=== PATIENT | male | born 1950 | race African-American/Black ===

== ENCOUNTER 2023-07-10 03:36 | Inpatient (IN) | payer MEDICAID, SELFPAY ==
[2023-07-10] VITALS (11 sets, daily range): BP systolic 103–170; BP diastolic 49–84; PULSE 63–94; RESP 14–22; TEMP 33.4–36.6; O2SAT 90–100; BMI 32.2
--- NOTE | 2023-07-10 | EEG_ITS ---
FINDINGS: Background activity consists of a very low voltage diffuse 2 to 3 hertz delta. Photic stimulation is without activation. Hyperventilation was omitted. IMPRESSION: This is a markedly abnormal EEG due to severe diffuse background slowing and low amplitude consistent with a severe diffuse encephalopathic process. No epileptiform discharges are seen. MD RADHA Amor/KRYSTAL / [id number]
--- NOTE | 2023-07-10 03:39 | ED.NEUROSD ---
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 , diabetes type 2 insulin dependent, chronic diastolic heart failure, dysphagia, dementia, hypertension, recurrent UTI, CKD stage IIIB, BPH, schizophrenia hypothermia secondary to autonomic dysfunction ambulatory and speaks comes here as at 330 Am when nurse was going for patient check noticed that patient is not speaking and has right-sided shaking with weakness which is kind of unusual for the patient, no facial asymmetry no vomiting patient does have a CKD with BUN of 53 and creatinine 2.83 in labs done on 05/25/2023 on further inquiry with nursing supervisor quality control patient was found having some seizure-like activity with jerking movements of both extremities with foaming from the mouth which lasted for 15 minutes prior to arrival Related Data Allergies Allergy/AdvReac Type Severity Reaction Status Date / Time No Known Allergies Allergy Verified 07/10/23 03:39 Review of Systems Review of Systems: Yes Unobtainable due to mental status PMFSH Past Medical History Medical History (Updated 07/10/23 @ 06:48 by Woodrow Montgomery MD) Hypothermia Schizophrenia BPH (benign prostatic hyperplasia) Stage 3b chronic kidney disease (CKD) Left hemiparesis Right pontine CVA Hypertension Recurrent UTI Dysphagia Dementia Chronic diastolic heart failure Paroxysmal A-fib Diabetes mellitus type 2 in obese Social History Social History Unable to assess alcohol history related to: Unknown Smoked in Last 30 Days: No Use of substances other than those prescribed or required for medical reasons: Unable to respond Advance Directives: No Advance Directives Information Provided: No Physical Exam Vital Signs: Vital Signs: Last Vital Signs Temp 97.0 F 07/10/23 06:06 Pulse 82 07/10/23 06:06 Resp 15 07/10/23 06:06 BP 156/70 H 07/10/23 06:06 Pulse Ox 92 07/10/23 06:06 O2 Del Method Room Air 07/10/23 06:06 BMI result Body Mass Index 32.2 Appearance: Alert. And awake No acute distress. Nonverbal Eyes: PERRLA, No Nystagmus ENT: Pharynx normal. Oral Mucosa moist Neck: Normal inspection. Neck supple. CVS: Normal heart rate and rhythm. Pulses normal. Respiratory: No respiratory distress. Equal air entry bilateral, no wheezing/rales/rhonchi Abdomen: Soft and nontender. Bowel sounds are present, no mass palpable, no CVA tenderness Skin: Skin warm and dry. Normal skin color. Normal skin turgor. Extremities: No lower extremity edema. No calf tenderness slight shaking of the right hand Neuro: Alert and awake with slight weakness to the right side aphasia +.No cerebellar signs , cranial nerves II-XII intact slight shaking of the right hand Medications Administered Discontinued Medications Generic Name Dose Route Start Last Admin Trade Name Tremaineq PRN Reason Stop Dose Admin Sodium Chloride 1,000 mls @ 999 mls/hr 07/10/23 05:31 07/10/23 06:11 Ns IV 07/10/23 06:31 999 mls/hr .Q1H1M ONE Administration Levetiracetam 1,000 mg in 100 mls @ 400 mls/hr 07/10/23 06:05 07/10/23 06:28 Keppra IV 07/10/23 06:19 Infused ONCE ONE Infusion Iohexol 70 ml 07/10/23 03:58 07/10/23 03:59 Iohexol 350 Mg/Ml 100 Ml Infus..Btl IV 07/10/23 03:59 70 ml ONCE ONE Administration Medical Decision Making Medical Decision Making MDM Narrative: Patient with last well-known time was when he went to bed last night at 03:30 during checkup nurse noticed right-sided weakness and patient not speaking CT head negative for acute patient noticed to be shaking on the right side possible seizure patient excluded from tPA for unknown time of onset and been on Eliquis unable to NIHSS scale as patient is nonverbal and noncompliance 05:[address] head negative for acute patient able to communicate by responding to his name able to move his right-upper extremity but slightly weaker than the left will call [facility] assistant to find the details 06:00 patient had a witnessed generalized tonic-clonic seizure with tongue bite lasted for about 4 minutes with frothing from the mouth and postictal obtundation. Will start patient on Keppra admit patient for further evaluation Differential Diagnosis Differential Diagnoses: The differential diagnosis associated with the presentation includes Seizure disorder/status epilepticus/CVA/SAH/metabolic encephalopathy Admission/Observation Consideration of admission/observation: Escalation of care including admission/observation considered Consult Healthcare Provider Management of the patient was discussed with: Hospitalist Lab Data MDM Lab Attestation statement: I reviewed the patient's lab results. 07/10/23 04:38 07/10/23 04:38 Labs: Lab Results 07/10/23 07/10/23 Range/Units 03:42 04:38 WBC 9.8 (4.8-10.8) X10*3/uL RBC 3.49 L (4.60-5.80) X10*6/uL Hgb 9.9 L (14.0-18.0) g/dl Hct 30.6 L (42.0-52.0) % MCV 87.7 (80.0-98.0) fL MCH 28.4 (27.0-33.0) pg MCHC 32.4 (31.0-36.0) g/dl RDW 17.1 H (11.0-16.0) % Plt Count 112 L (160-400) X10*3/uL MPV 11.9 (9.4-12.4) fL Immature Gran % (Auto) 1.5 H (0.0-0.4) % Neut % (Auto) 82.4 H (45-73) % Lymph % (Auto) 10.5 L (20-40) % [place] % (Auto) 4.9 (2-11) % Eos % (Auto) 0.5 (0-4) % Baso % (Auto) 0.2 (0-2) % Lymph # (Auto) 1.0 L (1.2-4.9) X10*3/uL [place] # (Auto) 0.5 (0.1-1.2) X10*3/uL Eos # (Auto) 0.1 (0.0-0.4) X10*3/uL Baso # (Auto) 0.0 (0.0-0.2) X10*3/uL Abs Immat Gran (auto) 0.15 H (0.00-0.03) X10*3/uL Absolute Neuts (auto) 8.1 (2.0-8.3) x10*3/uL Absolute Nucleated RBC 0.050 H (0.0-0.012) X10*3/uL Nucleated RBC % (auto) 0.5 H (0.0-0.2) /100WBC PT 11.2 (11.1-13.3) SEC Whole Blood PT 12.2 (11.1-13.5) sec INR 0.9 (0.9-1.1) Whole Blood INR 1.0 (0.9-1.1) APTT 53.3 H (26.0-36.4) SEC Sodium 140 (135-145) mmol/L Potassium 4.9 (3.3-5.1) mmol/L Chloride 104 (96-108) mmol/L Carbon Dioxide 21 L (22-29) mmol/L Anion Gap 20 (12-20) BUN 65 H (9-16) mg/dL Creatinine 3.12 H (0.5-1.4) mg/dL Estim Creat Clear Calc 22.6 Estimated GFR 20 POC Glucose 202 H (60-115) mg/dL Random Glucose 221 H (60-115) mg/dL Calcium 10.1 (8.4-10.2) mg/dL Magnesium 2.2 (1.6-2.6) mg/dL Total Creatine Kinase 109 (38-174) U/L Troponin I High Sens 13.4 (<3.5-35.0) ng/L Independent Interpretation I performed an independent interpretation of an: EKG Interpretation: Normal sinus rhythm heart rate 90 beats per minute normal interval normal axis no acute ST-T change and no acute ischemia Radiology Impression Discussion of test interpretation with radiology: I have reviewed the radiologist's reading. Radiologist Impression: [address] [address] [address] Scan Report Signed Patient: Aristeo Garrett MR#: [id number] : 1950 Acct:[id number] Age/Sex: 72 / M ADM Date: 07/10/23 Loc: .ED Attending Dr: Ordering Physician: Woodrow Montgomery MD Date of Service: 07/10/23 Procedure(s): CT angio head neck stroke Accession Number(s): [id number] cc: Mark Arredondo MD; Woodrow Montgomery MD~ EXAMINATION: CTA NECK WITH CONTRAST (STROKE) CTA BRAIN WITH CONTRAST (STROKE) CLINICAL INFORMATION: Suspect acute stroke. Assess for major vessel occlusion. Please call report. COMPARISON: None available. TECHNIQUE: CTA of the head and neck was performed in the axial plane from the mediastinum to the skull vertex using 70 mL Omnipaque 350 intravenous contrast. Additional reformatted multiplanar images including maximum intensity projection MIP images are generated on the CT workstation. This CT examination was performed using dose optimization techniques as appropriate, variously including the following: *Automated exposure control *Adjustment of mA and/or kV according to patient size (this includes techniques or standardized protocols for targeted exams where dose is matched to indication/reason for exam; i.e. extremities or head) *Use of iterative reconstruction technique DLP: 897 mGy-cm FINDINGS: The degree of stenosis determined by criteria similar to NASCET. Brain: There is cerebral volume loss with prominence of the lateral, and third ventricles. The cortical sulci are widened appropriately. The fourth ventricle and basal cisterns are normally outlined. There is mild to moderate bilateral periventricular and central white matter diminished attenuation. Old right basal ganglia and pontine lacunar infarcts are again seen. There is no acute territorial defect, hemorrhage or midline shift. The extra-axial spaces are unremarkable. Calvarium: Intact. Maxilla facial sinuses and mastoids: Clear as visualized. Chest CTA: The aortic arch is within normal limits. Neck CTA: There is atherosclerotic plaque at the carotid bifurcation without hemodynamically significant stenosis. The common carotid artery is patent. The vertebral arteries are codominant. There is mild plaque throughout the vertebral arteries without significant narrowing. The external carotid arteries also patent. Brain CTA: There is atherosclerotic plaque of the intracranial internal carotid artery with moderate luminal narrowing. The middle cerebral and anterior cerebral arteries show no significant proximal stenosis. The distal vertebral artery as well as basilar artery and branches are patent. The posterior vertebral arteries are also patent. There is no evidence for aneurysm. CT/CT angio head neck stroke IMPRESSION: Atherosclerotic plaque of the aortic bifurcation as well as intracranial internal carotid arteries with mild to moderate luminal narrowing in the intracranial internal carotid arteries. The anterior middle and posterior cerebral arteries are patent. No evidence for aneurysm. CT/CT head for stroke IMPRESSION: Cerebral volume loss and [id number] bilateral periventricular and central white matter image attenuation which is nonspecific but likely represent microvascular disease. No acute intracranial abnormality. This critical result was discussed with Dr. Cummings at 3:53 AM hours on 05/10/2023.. It was ascertained that the content and urgency of the report was understood at the time of direct communication. External Record Review External record reviewed: Inpatient record Patient discharged from [facility] 06/29 BUN 57 creatinine 2.6 on 06/28/2023 NIH Stroke Scale Best Gaze: Normal Critical Care Time Critical Care Time Critical Care Time: Yes Total Critical Care Time: 60 Attestation: The patient was critically ill with a high probability of imminent or life threatening deterioration. I spent greater than 70 minutes of discontinuous time evaluating the patient,delivering critical care at the bedside, discussing and evaluating pertinent data with consultants. Critical care time does not include time spent performing separately billable procedures or teaching. Total time spent performing critical care was 60 minutes. Discharge Plan Discharge Clinical Impression: New onset seizure, Acute alteration in mental status, CKD (chronic kidney disease) Patient Disposition: Admitted As Inpatient
--- NOTE | 2023-07-10 04:39 | PC.NURSE ---
[facility] has a [place] cath on for urine
[2023-07-10 04:56] LABS: Anion Gap 20 (12-20); Blood Urea Nitrogen 65 mg/dL (9-16); Calcium 10.1 mg/dL (8.4-10.2); Carbon Dioxide 21 mmol/L (22-29); Chloride 104 mmol/L (96-108); Creatinine Clr Calc Pharmacy 22.6; Estimated Glomerular Filt Rate 20; Glucose Random 221 mg/dL (60-115); Magnesium 2.2 mg/dL (1.6-2.6); Potassium 4.9 mmol/L (3.3-5.1); Sodium 140 mmol/L (135-145)
--- NOTE | 2023-07-10 06:11 | PC.NURSE ---
upon arriving to pt room, pt was snoring loudly, drooling and unresponsive to staff, Dr. beckwith to assess pt, HOB elevated, medicated with keppra and NS
--- NOTE | 2023-07-10 06:13 | P.HPHOSP_ITS ---
History of Present Illness Date of Service: 07/10/23 Chief Complaint: seizures 72-year-old male with PMH of?diabetes mellitus type 2,?insulin- dependent,?paroxysmal atrial fibrillation?(on Eliquis),?chronic diastolic congestive heart failure,?dysphagia,?dementia, recurrent UTIs, hypertension, history of right pontine?CVA?in 03/2023?with left hemiparesis,?CKD stage?IIIb,?BPH schizophrenia?with lack of decision-making capacity,?(court- appointed guardian),?is presenting to the ED from?memory center?at [facility]
--- NOTE | 2023-07-10 06:13 | PM.IMHP ---
History of Present Illness Date of Service: 07/10/23 Chief Complaint: seizures 72-year-old male with PMH of?diabetes mellitus type 2,?insulin-dependent,?paroxysmal atrial fibrillation?(on Eliquis),?chronic diastolic congestive heart failure,?dysphagia,?dementia, recurrent UTIs, hypertension, history of right pontine?CVA?in 03/2023?with left hemiparesis,?CKD stage?IIIb,?BPH schizophrenia?with lack of decision-making capacity,?(court-appointed guardian),?is presenting to the ED from?memory center?at [facility] in [place] with witnessed tonic clonic seizure and upon arrival to the ED he appear to be in post-ictal state, but then had another episode of tonic clonic seiure in ED with foaming from the mouth. He is given IV, no prior history of seizure. Glucose was greater 200. He was hospitalized at [facility] last month for hypothermia and Hypoglycemia Review of Systems Review of Systems: Yes Unobtainable due to mental condition [facility] Medical History (Updated 07/10/23 @ 14:13 by Tano Bernardo MD) Type 2 diabetes mellitus Hypertensive cardiovascular-renal disease Hypothermia Schizophrenia BPH (benign prostatic hyperplasia) Stage 3b chronic kidney disease (CKD) Left hemiparesis Right pontine CVA Hypertension Recurrent UTI Dysphagia Dementia Chronic diastolic heart failure Paroxysmal A-fib Diabetes mellitus type 2 in obese Social History Unable to assess alcohol history related to: Unknown Patient Tobacco Use Status: Tobacco use Unknown Meds Allergies Allergy/AdvReac Type Severity Reaction Status Date / Time No Known Allergies Allergy Verified 07/10/23 03:39 Active Medications: Current Medications Sodium Chloride (Ns) 1,000 mls @ 999 mls/hr IV .Q1H1M ONE Stop: 07/10/23 06:31 Last Admin: 07/10/23 06:11 Dose: 999 mls/hr Levetiracetam (Keppra) 1,000 mg in 100 mls @ 400 mls/hr IV ONCE ONE Stop: 07/10/23 06:19 Last Admin: 07/10/23 06:10 Dose: 400 mls/hr Home Medications Medication Instructions Recorded Confirmed Last Taken Type apixaban 5 mg tablet (Eliquis) 5 mg PO BID 07/10/23 07/10/23 Unknown History atorvastatin 20 mg tablet 20 mg PO DAILY 07/10/23 07/10/23 Unknown History benztropine 1 mg tablet 1 mg PO BID 07/10/23 07/10/23 Unknown History cholecalciferol (vitamin D3) 50 50 mcg PO DAILY 07/10/23 07/10/23 Unknown History mcg (2,000 unit) tablet docusate sodium 100 mg capsule 200 mg PO DAILY 07/10/23 07/10/23 Unknown History finasteride 5 mg tablet 5 mg PO DAILY 07/10/23 07/10/23 Unknown History folic acid 1 mg tablet 1 mg PO DAILY 07/10/23 07/10/23 Unknown History haloperidol 5 mg tablet 5 mg PO DAILY 07/10/23 07/10/23 Unknown History haloperidol decanoate 50 mg/mL 25 mg IM Q4W 07/10/23 07/10/23 Unknown History intramuscular solution insulin NPH isoph U-100 human 100 10 unit subcut BID 07/10/23 07/10/23 Unknown History unit/mL subcutaneous suspension (Humulin N NPH U-100 Insulin (isophane susp)) insulin regular human 100 unit/mL 1 sliding scale dose subcut 07/10/23 07/10/23 Unknown History injection solution (Humulin R USEASDIRECTD Regular U-100 Insulin) isosorbide mononitrate 30 mg 30 mg PO DAILY 07/10/23 07/10/23 Unknown History tablet,extended release 24 hr multivitamin 1 tab PO DAILY 07/10/23 07/10/23 Unknown History olanzapine 5 mg tablet 5 mg PO DAILY 07/10/23 07/10/23 Unknown History risperidone 2 mg tablet 2 mg PO DAILY 07/10/23 07/10/23 Unknown History risperidone 3 mg tablet 3 mg PO BEDTIME 07/10/23 07/10/23 Unknown History sucralfate 1 gram tablet (Carafate) 1 g PO TID 07/10/23 07/10/23 Unknown History tamsulosin 0.4 mg capsule 0.8 mg PO BEDTIME 07/10/23 07/10/23 Unknown History Physical Exam Vital Signs and Narrative: Vital Signs: Last Vital Signs Temp 97.0 F 07/10/23 06:06 Pulse 82 07/10/23 06:06 Resp 15 07/10/23 06:06 BP 156/70 H 07/10/23 06:06 Pulse Ox 92 07/10/23 06:06 O2 Del Method Room Air 07/10/23 06:06 BMI result Body Mass Index 32.2 Const: Other: General:?No alert, not responding eyes closed, no distress Mental Status:?No able to assess, not able to follow commend Head:?Normocephalic. Eyes:?Pupils are equal, round and reactive to light. Extraocular muscles intact. Ear, Nose and Throat:?Oropharynx clear, mucous membranes moist. Ears and nose without masses, lesions or deformities. Neck:?Supple, Respiratory:?Clear to auscultation and percussion. No wheezing, rales or rhonchi. Cardiovascular:?Heart sounds iregular. No thrills. Regular rate and rhythm, no murmurs, rubs or gallops. Gastrointestinal:?Abdomen soft, non-tender, non-distended. Normal bowel sounds. No pulsatile mass. No hepatosplenomegaly. + Obese Genitourinary:?No costovertebral angle tenderness. Neurologic:?limitted exam, no focal deficit appreciated Skin:?No rashes or lesions. . Musculoskeletal:?No cyanosis or clubbing. No gross deformities. Normal range of motion. Results Labs 07/10/23 04:38 07/10/23 04:38 Labs: Laboratory Results - last 24 hr 07/10/23 07/10/23 03:42 04:38 MCV 87.7 MCH 28.4 MCHC 32.4 RDW 17.1 H Plt Count 112 L MPV 11.9 Immature Gran % (Auto) 1.5 H Neut % (Auto) 82.4 H Lymph % (Auto) 10.5 L [place] % (Auto) 4.9 Eos % (Auto) 0.5 Baso % (Auto) 0.2 Lymph # (Auto) 1.0 L [place] # (Auto) 0.5 Eos # (Auto) 0.1 Baso # (Auto) 0.0 Abs Immat Gran (auto) 0.15 H Absolute Neuts (auto) 8.1 Absolute Nucleated RBC 0.050 H Nucleated RBC % (auto) 0.5 H PT 11.2 Whole Blood PT 12.2 INR 0.9 Whole Blood INR 1.0 APTT 53.3 H Anion Gap 20 Estim Creat Clear Calc 22.6 Estimated GFR 20 POC Glucose 202 H Random Glucose 221 H Calcium 10.1 Magnesium 2.2 Total Creatine Kinase 109 Imaging Radiologist's Impressions: Impressions Head CT 07/10/23 03:50 IMPRESSION: Cerebral volume loss and [id number] bilateral periventricular and central white matter image attenuation which is nonspecific but likely represent microvascular disease. No acute intracranial abnormality. This critical result was discussed with Dr. Cummings at 3:53 AM hours on 05/10/2023.. It was ascertained that the content and urgency of the report was understood at the time of direct communication. Head/Neck CTA 07/10/23 04:11 IMPRESSION: Atherosclerotic plaque of the aortic bifurcation as well as intracranial internal carotid arteries with mild to moderate luminal narrowing in the intracranial internal carotid arteries. The anterior middle and posterior cerebral arteries are patent. No evidence for aneurysm. This critical test result is communicated to: Assessment and Plan (1) New onset seizure: Status: Acute Plan 72-year-old male with PMH of diabetes mellitus type 2, insulin-dependent, paroxysmal atrial fibrillation (on Eliquis), chronic diastolic congestive heart failure, dysphagia, dementia, recurrent UTIs, hypertension, history of right pontine CVA in 03/2023 with left hemiparesis, CKD stage IIIb, BPH schizophrenia with lack of decision-making capacity, (court-appointed guardian), here with new onset seizure. New onset seizure, CT no acute finding. Continue IV Keppra, Neuro consult, seizure precautions, NPO until awake, EEG, Ativan PRN and ICU consult with status epilepticus Type 2 diabetes mellitus: Hold meds, POC, ISS Stage III chronic kidney disease (N18.30): BUN/creatinine within baseline, monitor urine output, avoid nephrotoxic drugs, renally adjust medications ?? Hypertension - resume ?Amlodipine? when able take PO ?? Paroxysmal atrial fibrillation, rate is controlled, resume eliquis when able to eat ?? BPH (benign prostatic hyperplasia) with urinary retention:? -?Flomax, Finasteride when able to eat - Bladder scan, straight?cath as needed Dementia:?? Schizophrenia Impaired decision making (Z78.9): Patient has court appointed guardian (patient is deemed incapable of making medical decisions) -On ?Risperidone, olanzapine, benztropine? to be resume when able to eat DVT prophylaxis--eliquis admit for at least 2 midnights for new onset seizure management Med rec not yet done ?? ? Time Spent With Patient Time: Total time managing care of this patient today ____ minutes. Quality Stroke Does the patient have a stroke diagnosis?: No VTE Prior VTE?: No VTE Risk Level:: Medical - moderate - high VTE Device Contraindication: Treatment Not Indicated VTE Drug Contraindication: N/A - Med Ordered
--- NOTE | 2023-07-10 06:46 | PC.NURSE ---
pt assessed, looking around the room, turns his head when he hears his name, still non-verbal
--- NOTE | 2023-07-10 08:01 | PHA.MEDREC ---
Pharmacy Consult ? Medication Reconciliation Pharmacy has completed the medication reconciliation. List from [facility] / [facility]
--- NOTE | 2023-07-10 08:18 | PC.NURSE ---
spoke with daughter about pt and MRI questions, she was unsure of many of the answers and referred me to her brother. called was placed but he did not answer, message was left at 0815 requesting a call back
--- NOTE | 2023-07-10 09:57 | PC.NURSE ---
at approx 0950 [facility] deepika witnessed what looked like seizure activity. called for help. Dr. Barber came to bedside placed pt on his side, VO 1mg ativan IVP, pt placed on a NRB at 15L due to desat to 80s. pt seizure lasted approx 2 min
--- NOTE | 2023-07-10 11:12 | PC.NURSE ---
pct was unable to accurately measure an oral temp, proceeded with rectal temp. pt rectal temp 92.1 - informed . placed pt on sav hugger with rectal temp sensing prob in place. pt remaines obtunded
--- NOTE | 2023-07-10 12:05 | PM.NEUROCN ---
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 No prior history of seizure. Glucose was greater 200. Given Keppra 500mg IV only Review of Systems Review of Systems: Patient had another seizure this episode-received Ativan IV in postictal afterwards. Of note :I have seen him earlier he was barely opening eyes Currently postictal-has hypothermia. Also patient is having some gargling noises, also got suctioned in the ED. Yes Unobtainable due to mental condition and Unobtainable due to mental status PMFSH Past Medical History Medical History (Updated 07/10/23 @ 06:48 by Woodrow Montgomery MD) Hypothermia Schizophrenia BPH (benign prostatic hyperplasia) Stage 3b chronic kidney disease (CKD) Left hemiparesis Right pontine CVA Hypertension Recurrent UTI Dysphagia Dementia Chronic diastolic heart failure Paroxysmal A-fib Diabetes mellitus type 2 in obese Social History Social History Unable to assess alcohol history related to: Unknown Patient Tobacco Use Status: Tobacco use Unknown Smoked in Last 30 Days: No Use of substances other than those prescribed or required for medical reasons: Unable to respond Advance Directives: No Advance Directives Information Provided: No Nutrition Risks: On aspiration precautions Meds Allergies Allergy/AdvReac Type Severity Reaction Status Date / Time No Known Allergies Allergy Verified 07/10/23 03:39 Active Medications: Current Medications Acetaminophen (Acetaminophen Supp 650 Mg Supp.Rect) 650 mg IA Q6H PRN PRN Reason: Pain, Mild (Pain Scale 1-3) Atorvastatin Calcium (Atorvastatin Calcium 20 Mg Tablet) 20 mg PO DAILY [facility] Last Admin: 07/10/23 10:03 Dose: Not Given Benztropine Mesylate (Benztropine Mesylate 1 Mg Tablet) 1 mg PO BID [facility] Last Admin: 07/10/23 10:03 Dose: Not Given Docusate Sodium (Docusate Sodium 100 Mg Capsule) 200 mg PO DAILY [facility] Last Admin: 07/10/23 10:03 Dose: Not Given Enoxaparin Sodium (Enoxaparin Sodium 30 Mg/0.3 Ml Syringe) 30 mg SUBCUT Q24H [facility] Finasteride (Finasteride 5 Mg Tablet) 5 mg PO DAILY [facility] Last Admin: 07/10/23 10:04 Dose: Not Given Folic Acid (Folic Acid 1 Mg Tablet) 1 mg PO DAILY [facility] Last Admin: 07/10/23 10:04 Dose: Not Given Haloperidol (Haloperidol 5 Mg Tablet) 5 mg PO DAILY [facility] Last Admin: 07/10/23 10:04 Dose: Not Given Haloperidol Decanoate (Haloperidol Decanoate 50 Mg/Ml Ampul) 25 mg IM Q28D [facility] Lactated Ringer's (Lr) 1,000 mls @ 100 mls/hr IVCONT .Q10H [facility] Ampicillin Sodium/Sulbactam (Sodium 3 gm/ Sodium Chloride) 100 mls @ 200 mls/hr IV Q6H [facility] Isosorbide Mononitrate (Isosorbide Mononitrate 30 Mg Tab.Er.24h) 30 mg PO DAILY [facility]; Protocol Last Admin: 07/10/23 10:04 Dose: Not Given Levetiracetam (Levetiracetam 500 Mg/5 Ml Vial) 500 mg IV Q12H [facility] Last Admin: 07/10/23 11:59 Dose: 500 mg Multivitamins/Vitamin C (Multivitamin Tablet) 1 tab PO DAILY [facility] Last Admin: 07/10/23 10:04 Dose: Not Given Olanzapine (Olanzapine 5 Mg Tablet) 5 mg PO DAILY [facility] Last Admin: 07/10/23 10:05 Dose: Not Given Ondansetron HCl (Ondansetron Hcl 4 Mg/2 Ml Vial) 4 mg IVPUSH Q8H PRN PRN Reason: Nausea and Vomiting Risperidone (Risperidone 2 Mg Tablet) 2 mg PO DAILY [facility] Last Admin: 07/10/23 10:05 Dose: Not Given Risperidone (Risperidone 3 Mg Tablet) 3 mg PO BEDTIME [facility] Sodium Chloride (0.9 % Sodium Chloride Flush 3 Ml Syringe) 3 ml IVFLUSH QSHIFT [facility] Last Admin: 07/10/23 08:02 Dose: 3 ml Sucralfate (Sucralfate 1 Gm Tablet) 1 gm PO TID [facility] Last Admin: 07/10/23 10:05 Dose: Not Given Tamsulosin HCl (Tamsulosin Hcl 0.4 Mg Capsule) 0.8 mg PO BEDTIME [facility] Vitamin D (Cholecalciferol (Vitamin D3) 25 Mcg Tablet) 50 mcg PO DAILY [facility] Last Admin: 07/10/23 10:03 Dose: Not Given Home Medications Medication Instructions Recorded Confirmed Last Taken Type apixaban 5 mg tablet (Eliquis) 5 mg PO BID 07/10/23 07/10/23 Unknown History atorvastatin 20 mg tablet 20 mg PO DAILY 07/10/23 07/10/23 Unknown History benztropine 1 mg tablet 1 mg PO BID 07/10/23 07/10/23 Unknown History cholecalciferol (vitamin D3) 50 50 mcg PO DAILY 07/10/23 07/10/23 Unknown History mcg (2,000 unit) tablet docusate sodium 100 mg capsule 200 mg PO DAILY 07/10/23 07/10/23 Unknown History finasteride 5 mg tablet 5 mg PO DAILY 07/10/23 07/10/23 Unknown History folic acid 1 mg tablet 1 mg PO DAILY 07/10/23 07/10/23 Unknown History haloperidol 5 mg tablet 5 mg PO DAILY 07/10/23 07/10/23 Unknown History haloperidol decanoate 50 mg/mL 25 mg IM Q4W 07/10/23 07/10/23 Unknown History intramuscular solution insulin NPH isoph U-100 human 100 10 unit subcut BID 07/10/23 07/10/23 Unknown History unit/mL subcutaneous suspension (Humulin N NPH U-100 Insulin (isophane susp)) insulin regular human 100 unit/mL 1 sliding scale dose subcut 07/10/23 07/10/23 Unknown History injection solution (Humulin R USEASDIRECTD Regular U-100 Insulin) isosorbide mononitrate 30 mg 30 mg PO DAILY 07/10/23 07/10/23 Unknown History tablet,extended release 24 hr multivitamin 1 tab PO DAILY 07/10/23 07/10/23 Unknown History olanzapine 5 mg tablet 5 mg PO DAILY 07/10/23 07/10/23 Unknown History risperidone 2 mg tablet 2 mg PO DAILY 07/10/23 07/10/23 Unknown History risperidone 3 mg tablet 3 mg PO BEDTIME 07/10/23 07/10/23 Unknown History sucralfate 1 gram tablet (Carafate) 1 g PO TID 07/10/23 07/10/23 Unknown History tamsulosin 0.4 mg capsule 0.8 mg PO BEDTIME 07/10/23 07/10/23 Unknown History Physical Exam Vital Signs: Vital Signs: Last Vital Signs Temp 92.1 F L 07/10/23 11:11 Pulse 87 07/10/23 11:11 Resp 15 07/10/23 11:11 BP 167/84 H 07/10/23 11:11 Pulse Ox 98 07/10/23 11:11 O2 Del Method Oxymask 07/10/23 11:11 O2 Flow Rate 4 07/10/23 11:11 BMI result Body Mass Index 32.2 Const: Other: General:?No alert, not responding eyes closed, no distress Mental Status:?No able to assess, not able to follow commend Head:?Normocephalic. Eyes:?Pupils are equal, round and reactive to light. Extraocular muscles intact. Ear, Nose and Throat:?Oropharynx clear, mucous membranes moist. Ears and nose without masses, lesions or deformities. Neck:?Supple, Respiratory:?Clear to auscultation and percussion. No wheezing, rales or rhonchi. Cardiovascular:?Heart sounds iregular. No thrills. Regular rate and rhythm, no murmurs, rubs or gallops. Gastrointestinal:?Abdomen soft, non-tender, non-distended. Normal bowel sounds. No pulsatile mass. No hepatosplenomegaly. + Obese Genitourinary:?No costovertebral angle tenderness. Neurologic:?limitted exam, no focal deficit appreciated Skin:?No rashes or lesions. . Musculoskeletal:?No cyanosis or clubbing. No gross deformities. Normal range of motion. Neuro: Other: Unresponsive and post ictal. Does not follow commands. Withdraws to deep pain only. Pupils 2mm reactive. Feeble corneal reflexes. Minimal dolls eye movements Results Labs 07/10/23 04:38 07/10/23 04:38 Labs: Short CBC 07/10/23 Range/Units 04:38 WBC 9.8 (4.8-10.8) X10*3/uL Hgb 9.9 L (14.0-18.0) g/dl Hct 30.6 L (42.0-52.0) % Plt Count 112 L (160-400) X10*3/uL BMP 07/10/23 04:38 Sodium 140 Potassium 4.9 Chloride 104 Carbon Dioxide 21 L BUN 65 H Creatinine 3.12 H Calcium 10.1 Cardiac Enzymes 07/10/23 Range/Units 04:38 Total Creatine Kinase 109 (38-174) U/L Urine 07/10/23 Range/Units 08:09 Urine Color Yellow Urine Appearance Clear Urine pH 6.0 (5.0-9.0) Ur Specific [place] 1.025 (1.005-1.025) Urine Protein 300 (3+) H (Neg-Trace) mg/dL Urine Glucose (UA) 100 H (Negative) mg/dL Assessment and Plan (1) New onset seizure: Status: Acute 3 generalized seizures on back ground of dementia. CT with no acute changes. Recom. Keppra 1gm bid. Ativan PRN for Sz. F/U CT brain to r/o infract in 24 hrs. Plan 72-year-old male with PMH of diabetes mellitus type 2, insulin-dependent, paroxysmal atrial fibrillation (on Eliquis), chronic diastolic congestive heart failure, dysphagia, dementia, recurrent UTIs, hypertension, history of right pontine CVA in 03/2023 with left hemiparesis, CKD stage IIIb, BPH schizophrenia with lack of decision-making capacity, (court-appointed guardian), here with new onset seizure. New onset seizure, CT no acute finding. Continue IV Keppra, Neuro consult, seizure precautions, NPO until awake, EEG Type 2 diabetes mellitus: Hold meds, POC, ISS Stage III chronic kidney disease (N18.30): BUN/creatinine within baseline, monitor urine output, avoid nephrotoxic drugs, renally adjust medications ?? Hypertension - resume ?Amlodipine? when able take PO ?? Paroxysmal atrial fibrillation, rate is controlled, resume eliquis when able to eat ?? BPH (benign prostatic hyperplasia) with urinary retention:? -?Flomax, Finasteride when able to eat - Bladder scan, straight?cath as needed Dementia:?? Schizophrenia Impaired decision making (Z78.9): Patient has court appointed guardian (patient is deemed incapable of making medical decisions) -On ?Risperidone, olanzapine, benztropine? to be resume when able to eat DVT prophylaxis--eliquis admit for at least 2 midnights for new onset seizure management Med rec not yet done ?? ? Time Spent With Patient Time: Total time managing care of this patient today ____ minutes. Procedures Date of Service Date of Service: 07/10/23
--- NOTE | 2023-07-10 12:21 | PC.NURSE ---
Sacha from cardiology down to see pt. needs to complete EEG. pt not stable enough to transport out of unit without an RN, informed MD Kimbrough of this. plan for cardiology to complete EEG as tolerable in the emergency department. Luis E aware.
--- NOTE | 2023-07-10 12:23 | MHC.SLORD ---
Addendum entered and electronically signed by Alfreda Desai MA, CCC-VECTOR CONTROL ASSISTANT 07/10/23 17:16: VECTOR CONTROL ASSISTANT checked in w/ RN throughout the day. Pt remains obtunded and not able to participate in BDE. Order deferred pending improvement in pt's mental status, level of alertness. Original Note: Speech Language Pathology Order Status: Patient failed RN swallow screen this morning. Per RN swallow screen notes and per RN, patient not appropriate to participate in VECTOR CONTROL ASSISTANT evaluation. RN to send Accident to VECTOR CONTROL ASSISTANT when/if status improves to participate in VECTOR CONTROL ASSISTANT eval.
--- NOTE | 2023-07-10 12:25 | HO.PM.IMPN ---
Subjective Subjective Date of Service: 07/10/23 Interval History: New onset seizure, hypothermia, toxic metabolic encephalopathy, aspiration pneumonia Review of Systems Patient had another seizure this morning episode-received Ativan IV in postictal afterwards. Currently postictal-has hypothermia. Also patient is having some gargling noises, also got suctioned in the ED. Physical Exam Vital Signs: Vital Signs: Last Vital Signs Temp 93.4 F L 07/10/23 12:20 Pulse 79 07/10/23 12:20 Resp 16 07/10/23 12:20 BP 103/49 L 07/10/23 12:20 Pulse Ox 96 07/10/23 12:20 O2 Del Method Oxymask 07/10/23 12:20 O2 Flow Rate 4 07/10/23 12:20 BMI result Body Mass Index 32.2 Appearance: postictal cvs: rrr, [id number] , no murmur res: air entry fair ,has some gargly noices abd: no rebound or guarding ,nt, bs present. ext pulses present , no cyanosis . neuro: postictal,pupil 2mm reactive ,does not follow commands,withdraws to pain Objective Data Active Medications Acetaminophen (Acetaminophen Supp 650 Mg Supp.Rect) 650 mg PA Q6H PRN PRN Reason: Pain, Mild (Pain Scale 1-3) Atorvastatin Calcium (Atorvastatin Calcium 20 Mg Tablet) 20 mg PO DAILY [facility] Last Admin: 07/10/23 10:03 Dose: Not Given Documented By: JCARLOS Non-Admin Reason: Patient Condition Contraindication Benztropine Mesylate (Benztropine Mesylate 1 Mg Tablet) 1 mg PO BID [facility] Last Admin: 07/10/23 10:03 Dose: Not Given Documented By: JCARLOS Non-Admin Reason: NPO Docusate Sodium (Docusate Sodium 100 Mg Capsule) 200 mg PO DAILY [facility] Last Admin: 07/10/23 10:03 Dose: Not Given Documented By: JCARLOS Non-Admin Reason: NPO Enoxaparin Sodium (Enoxaparin Sodium 30 Mg/0.3 Ml Syringe) 30 mg SUBCUT Q24H [facility] Last Admin: 07/10/23 12:21 Dose: 30 mg Documented By: WILFREDO Finasteride (Finasteride 5 Mg Tablet) 5 mg PO DAILY [facility] Last Admin: 07/10/23 10:04 Dose: Not Given Documented By: JCARLOS Non-Admin Reason: NPO Folic Acid (Folic Acid 1 Mg Tablet) 1 mg PO DAILY [facility] Last Admin: 07/10/23 10:04 Dose: Not Given Documented By: JCARLOS Non-Admin Reason: NPO Haloperidol (Haloperidol 5 Mg Tablet) 5 mg PO DAILY [facility] Last Admin: 07/10/23 10:04 Dose: Not Given Documented By: JCARLOS Non-Admin Reason: NPO Haloperidol Decanoate (Haloperidol Decanoate 50 Mg/Ml Ampul) 25 mg IM Q28D [facility] Lactated Ringer's (Lr) 1,000 mls @ 100 mls/hr IVCONT .Q10H [facility] Ampicillin Sodium/Sulbactam (Sodium 3 gm/ Sodium Chloride) 100 mls @ 200 mls/hr IV Q6H [facility] Isosorbide Mononitrate (Isosorbide Mononitrate 30 Mg Tab.Er.24h) 30 mg PO DAILY [facility]; Protocol Last Admin: 07/10/23 10:04 Dose: Not Given Documented By: JCARLOS Non-Admin Reason: NPO Levetiracetam (Levetiracetam 500 Mg/5 Ml Vial) 500 mg IV Q12H [facility] Last Admin: 07/10/23 11:59 Dose: 500 mg Documented By: WILFREDO Multivitamins/Vitamin C (Multivitamin Tablet) 1 tab PO DAILY [facility] Last Admin: 07/10/23 10:04 Dose: Not Given Documented By: JCARLOS Non-Admin Reason: NPO Olanzapine (Olanzapine 5 Mg Tablet) 5 mg PO DAILY [facility] Last Admin: 07/10/23 10:05 Dose: Not Given Documented By: JCARLOS Non-Admin Reason: NPO Ondansetron HCl (Ondansetron Hcl 4 Mg/2 Ml Vial) 4 mg IVPUSH Q8H PRN PRN Reason: Nausea and Vomiting Risperidone (Risperidone 2 Mg Tablet) 2 mg PO DAILY [facility] Last Admin: 07/10/23 10:05 Dose: Not Given Documented By: JCARLOS Non-Admin Reason: NPO Risperidone (Risperidone 3 Mg Tablet) 3 mg PO BEDTIME [facility] Sodium Chloride (0.9 % Sodium Chloride Flush 3 Ml Syringe) 3 ml IVFLUSH QSHIFT [facility] Last Admin: 07/10/23 08:02 Dose: 3 ml Documented By: JCARLOS Sucralfate (Sucralfate 1 Gm Tablet) 1 gm PO TID [facility] Last Admin: 07/10/23 10:05 Dose: Not Given Documented By: JCARLOS Non-Admin Reason: NPO Tamsulosin HCl (Tamsulosin Hcl 0.4 Mg Capsule) 0.8 mg PO BEDTIME [facility] Vitamin D (Cholecalciferol (Vitamin D3) 25 Mcg Tablet) 50 mcg PO DAILY [facility] Last Admin: 07/10/23 10:03 Dose: Not Given Documented By: JCARLOS Non-Admin Reason: NPO Labs 07/10/23 04:38 07/10/23 04:38 Labs: Laboratory Results - last 24 hr 07/10/23 07/10/23 07/10/23 03:42 04:38 08:09 MCV 87.7 MCH 28.4 MCHC 32.4 RDW 17.1 H Plt Count 112 L MPV 11.9 Immature Gran % (Auto) 1.5 H Neut % (Auto) 82.4 H Lymph % (Auto) 10.5 L [place] % (Auto) 4.9 Eos % (Auto) 0.5 Baso % (Auto) 0.2 Lymph # (Auto) 1.0 L [place] # (Auto) 0.5 Eos # (Auto) 0.1 Baso # (Auto) 0.0 Abs Immat Gran (auto) 0.15 H Absolute Neuts (auto) 8.1 Absolute Nucleated RBC 0.050 H Nucleated RBC % (auto) 0.5 H PT 11.2 Whole Blood PT 12.2 INR 0.9 Whole Blood INR 1.0 APTT 53.3 H Anion Gap 20 Estim Creat Clear Calc 22.6 Estimated GFR 20 POC Glucose 202 H Random Glucose 221 H Calcium 10.1 Magnesium 2.2 Total Creatine Kinase 109 Urine Color Yellow Urine Appearance Clear Urine pH 6.0 Ur Specific [place] 1.025 Urine Protein 300 (3+) H Urine Glucose (UA) 100 H Urine Ketones Negative Urine Blood Small (1+) H Urine Nitrite Negative Ur Leukocyte Esterase Negative Urine RBC 0-2 Urine WBC 0-5 Ur Squamous Epith Cells 0-2 Urine Bacteria None Seen Hyaline Casts 0-2 Assessment and Plan (1) New onset seizure: Status: Acute (2) CKD (chronic kidney disease): Status: Acute Plan 72-year-old male past medical history of diabetes, PF, chronic diastolic HF, dementia was not,dysphagia ,htn , history of right pontine CVA 03/27 with left hemiparesis ,ckd 3,schizophrenia ,bph -comes with new onset seizure. [facility] -patient is noncompliant with his meds, patient had shaking episode and was unresponsive as per [facility] staff (that's why sent to [facility]). his sister (guardian also updated ). 1. encephalopathy unclear etiology possible multifactorial( dean on ckd ,postictal) has another seizure episode this morning received ativan on 07/10/23: ct head-Cerebral volume loss and [id number] bilateral periventricular and central white matter image attenuation which is nonspecific but likely represent microvascular disease. No acute intracranial abnormality. mri : No acute intracranial abnormality. Moderate microangiopathy and generalized cerebral volume loss. Chronic lacunar infarcts involving the deep [place] nuclei and alma. seen by neuro: 3 generalized seizures on back ground of dementia. Recom. Keppra 1gm bid. Ativan PRN for Sz. F/U CT brain to r/o infract in 24 hrs. postictal -seen by speech and swallow -npo. eeg also done -report pending 2.dm:moniter fs Currently postictal, npo Started on D5 NS Monitor fingersticks closely, avoid coverage below 200 mg/dL 3.dean on ckd: Possible dehydration related-postictal in setting of seizure. Continue IV fluids Monitor renal function and electrolytes closely. 4. BPH with urinary retention history: Cannot take p.o. medication, will add use Burger catheter for now for fluid management. 5. Dementia/schizophrenia: Hold meds since cannot take p.o., discussed with the psych since his postictal-currently the slightly will need psych medication, will start back once more awake. 6 PAF: hr controlled switch eliquis to lovenox since can not take po. 7. possible acute hypoxemic respiratory failure insettin of seizure/possible aspirtional pneumonia on cxr: not septic started unasyn ,blood cultures hypotermia -simillar episode happen in [facility] -use sean hugger-temp slowly coming up. d/w Icu -continue current management ,no need for icu for now. ongoing hospitlisation need: new seizure onset -need iv seizure meds , renal function electrolyte monitoring, specialist follow-up. Time Spent With Patient Time: Total time managing care of this patient today ____ minutes. Quality Stroke Does the patient have a stroke diagnosis?: No VTE Prior VTE?: No VTE Risk Level:: Medical - moderate - high VTE Device Contraindication: Treatment Not Indicated VTE Drug Contraindication: N/A - Med Ordered
--- NOTE | 2023-07-10 13:15 | PC.NURSE ---
deep nasal suctioning provided for wet cough, tachypnea, saO2 down to 90s on 4L oxymask- pt tolerated well.
--- NOTE | 2023-07-10 13:30 | PC.NURSE ---
Dajuan from Cardiology at bedside to complete EEG
--- NOTE | 2023-07-10 13:46 | MHC.CM.ED ---
Patient is a LTC resident of [facility]. [facility] has been asked to provide CM with a copy of patient's guardianship.
--- NOTE | 2023-07-10 14:01 | W.PM.CCCN ---
History of Present Illness Data of Consult Service Date: 07/10/23 Requesting physician: Chandana Kimbrough Primary Care Provider: LOR HALEY HPI Reason for consult: Status post seizure 72-year-old male I do believe homeless background history of hypertension and supposedly paroxysmal atrial fibrillation on apixaban full-dose 5 mg twice daily and background type 2 diabetes but insulin dependent and a schizoaffective on Haldol and risperidone noted to have seizure today and is gentleman apparently has had a previous pontine infarct with with left hemiparesis and right-sided weakness presumably a Ion's paralysis was noted and he had then a 2nd witnessed seizure I think on route to the hospital and then 1 in the hospital since which time he had been loaded with 1 g of Keppra and in questioning the ER staff no further seizure activity has been noted since then Currently sleeping with comfortable blood pressure and vital signs oxygen saturation I did bedside echo revealing concentric left ventricular hypertrophy approximately 45% ejection fraction so considered in a mild systolic dysfunction with no evidence of primary valve or pericardial disease and no segmental wall motion abnormality in multiple views Review of chest x-ray I see what looks like a low potential left lower lobe infiltrate so at the time of seizure activity can not rule out the possibility of aspiration CT scan reviewed shows some parietal and basal gangliar infarcts a which her older and CTA said that all 4 vessels to the head or all patent there was no critical obstruction and no other acute intracranial abnormality that was notable Review of Systems Review of Systems: Yes Unobtainable due to mental status PMFSH Past Medical History Medical History (Updated 07/10/23 @ 14:13 by Tano Bernardo MD) Type 2 diabetes mellitus Hypertensive cardiovascular-renal disease Hypothermia Schizophrenia BPH (benign prostatic hyperplasia) Stage 3b chronic kidney disease (CKD) Left hemiparesis Right pontine CVA Hypertension Recurrent UTI Dysphagia Dementia Chronic diastolic heart failure Paroxysmal A-fib Diabetes mellitus type 2 in obese Social History Social History Unable to assess alcohol history related to: Unknown Patient Tobacco Use Status: Tobacco use Unknown Smoked in Last 30 Days: No Use of substances other than those prescribed or required for medical reasons: Unable to respond Advance Directives: No Advance Directives Information Provided: No Nutrition Risks: On aspiration precautions Meds Allergies Allergy/AdvReac Type Severity Reaction Status Date / Time No Known Allergies Allergy Verified 07/10/23 03:39 Active Medications: Current Medications Acetaminophen (Acetaminophen Supp 650 Mg Supp.Rect) 650 mg CO Q6H PRN PRN Reason: Pain, Mild (Pain Scale 1-3) Atorvastatin Calcium (Atorvastatin Calcium 20 Mg Tablet) 20 mg PO DAILY [facility] Last Admin: 07/10/23 10:03 Dose: Not Given Benztropine Mesylate (Benztropine Mesylate 1 Mg Tablet) 1 mg PO BID [facility] Last Admin: 07/10/23 10:03 Dose: Not Given Docusate Sodium (Docusate Sodium 100 Mg Capsule) 200 mg PO DAILY [facility] Last Admin: 07/10/23 10:03 Dose: Not Given Enoxaparin Sodium (Enoxaparin Sodium 30 Mg/0.3 Ml Syringe) 30 mg SUBCUT Q24H [facility] Last Admin: 07/10/23 12:21 Dose: 30 mg Finasteride (Finasteride 5 Mg Tablet) 5 mg PO DAILY [facility] Last Admin: 07/10/23 10:04 Dose: Not Given Folic Acid (Folic Acid 1 Mg Tablet) 1 mg PO DAILY [facility] Last Admin: 07/10/23 10:04 Dose: Not Given Haloperidol (Haloperidol 5 Mg Tablet) 5 mg PO DAILY [facility] Last Admin: 07/10/23 10:04 Dose: Not Given Haloperidol Decanoate (Haloperidol Decanoate 50 Mg/Ml Ampul) 25 mg IM Q28D [facility] Lactated Ringer's (Lr) 1,000 mls @ 100 mls/hr IVCONT .Q10H [facility] Last Admin: 07/10/23 12:30 Dose: 100 mls/hr Ampicillin Sodium/Sulbactam (Sodium 3 gm/ Sodium Chloride) 100 mls @ 200 mls/hr IV Q12H [facility] Last Admin: 07/10/23 13:18 Dose: 200 mls/hr Isosorbide Mononitrate (Isosorbide Mononitrate 30 Mg Tab.Er.24h) 30 mg PO DAILY [facility]; Protocol Last Admin: 07/10/23 10:04 Dose: Not Given Levetiracetam (Levetiracetam 500 Mg/5 Ml Vial) 500 mg IV Q12H [facility] Last Admin: 07/10/23 11:59 Dose: 500 mg Multivitamins/Vitamin C (Multivitamin Tablet) 1 tab PO DAILY [facility] Last Admin: 07/10/23 10:04 Dose: Not Given Olanzapine (Olanzapine 5 Mg Tablet) 5 mg PO DAILY [facility] Last Admin: 07/10/23 10:05 Dose: Not Given Ondansetron HCl (Ondansetron Hcl 4 Mg/2 Ml Vial) 4 mg IVPUSH Q8H PRN PRN Reason: Nausea and Vomiting Risperidone (Risperidone 2 Mg Tablet) 2 mg PO DAILY [facility] Last Admin: 07/10/23 10:05 Dose: Not Given Risperidone (Risperidone 3 Mg Tablet) 3 mg PO BEDTIME [facility] Sodium Chloride (0.9 % Sodium Chloride Flush 3 Ml Syringe) 3 ml IVFLUSH QSHIFT [facility] Last Admin: 07/10/23 08:02 Dose: 3 ml Sucralfate (Sucralfate 1 Gm Tablet) 1 gm PO TID [facility] Last Admin: 07/10/23 10:05 Dose: Not Given Tamsulosin HCl (Tamsulosin Hcl 0.4 Mg Capsule) 0.8 mg PO BEDTIME [facility] Vitamin D (Cholecalciferol (Vitamin D3) 25 Mcg Tablet) 50 mcg PO DAILY [facility] Last Admin: 07/10/23 10:03 Dose: Not Given Home Medications Medication Instructions Recorded Confirmed Last Taken Type apixaban 5 mg tablet (Eliquis) 5 mg PO BID 07/10/23 07/10/23 Unknown History atorvastatin 20 mg tablet 20 mg PO DAILY 07/10/23 07/10/23 Unknown History benztropine 1 mg tablet 1 mg PO BID 07/10/23 07/10/23 Unknown History cholecalciferol (vitamin D3) 50 50 mcg PO DAILY 07/10/23 07/10/23 Unknown History mcg (2,000 unit) tablet docusate sodium 100 mg capsule 200 mg PO DAILY 07/10/23 07/10/23 Unknown History finasteride 5 mg tablet 5 mg PO DAILY 07/10/23 07/10/23 Unknown History folic acid 1 mg tablet 1 mg PO DAILY 07/10/23 07/10/23 Unknown History haloperidol 5 mg tablet 5 mg PO DAILY 07/10/23 07/10/23 Unknown History haloperidol decanoate 50 mg/mL 25 mg IM Q4W 07/10/23 07/10/23 Unknown History intramuscular solution insulin NPH isoph U-100 human 100 10 unit subcut BID 07/10/23 07/10/23 Unknown History unit/mL subcutaneous suspension (Humulin N NPH U-100 Insulin (isophane susp)) insulin regular human 100 unit/mL 1 sliding scale dose subcut 07/10/23 07/10/23 Unknown History injection solution (Humulin R USEASDIRECTD Regular U-100 Insulin) isosorbide mononitrate 30 mg 30 mg PO DAILY 07/10/23 07/10/23 Unknown History tablet,extended release 24 hr multivitamin 1 tab PO DAILY 07/10/23 07/10/23 Unknown History olanzapine 5 mg tablet 5 mg PO DAILY 07/10/23 07/10/23 Unknown History risperidone 2 mg tablet 2 mg PO DAILY 07/10/23 07/10/23 Unknown History risperidone 3 mg tablet 3 mg PO BEDTIME 07/10/23 07/10/23 Unknown History sucralfate 1 gram tablet (Carafate) 1 g PO TID 07/10/23 07/10/23 Unknown History tamsulosin 0.4 mg capsule 0.8 mg PO BEDTIME 07/10/23 07/10/23 Unknown History Physical Exam Vital Signs: Vital Signs: Last Vital Signs Temp 94.5 F L 07/10/23 13:16 Pulse 94 07/10/23 13:16 Resp 22 H 07/10/23 13:16 BP 170/82 H 07/10/23 13:16 Pulse Ox 100 07/10/23 13:16 O2 Del Method Oxymask 07/10/23 13:16 O2 Flow Rate 4 07/10/23 13:16 BMI result Body Mass Index 32.2 Apparently gradually warming current temperature now up to 94.5 degrees heart rate 90 in sinus rhythm and EKG by the way with a minimal nonspecific IVCD no acute ST-T changes blood pressure is 170/80 pulse ox is 100% respirations are comfortable certainly no accessory muscle use No apparent adventitious sounds chest excursion is equal Bedside echo revealing mild systolic dysfunction with concentric left ventricular hypertrophy and no segmental wall motion abnormality approximately 45% ejection fraction Results Labs 07/10/23 04:38 07/10/23 04:38 Labs: Short CBC 07/10/23 Range/Units 04:38 WBC 9.8 (4.8-10.8) X10*3/uL Hgb 9.9 L (14.0-18.0) g/dl Hct 30.6 L (42.0-52.0) % Plt Count 112 L (160-400) X10*3/uL BMP 07/10/23 04:38 Sodium 140 Potassium 4.9 Chloride 104 Carbon Dioxide 21 L BUN 65 H Creatinine 3.12 H Calcium 10.1 Cardiac Enzymes 07/10/23 Range/Units 04:38 Total Creatine Kinase 109 (38-174) U/L Urine 07/10/23 Range/Units 08:09 Urine Color Yellow Urine Appearance Clear Urine pH 6.0 (5.0-9.0) Ur Specific [place] 1.025 (1.005-1.025) Urine Protein 300 (3+) H (Neg-Trace) mg/dL Urine Glucose (UA) 100 H (Negative) mg/dL Assessment and Plan (1) Hypertensive cardiovascular-renal disease: Status: Acute (2) Type 2 diabetes mellitus: Status: Acute (3) CKD (chronic kidney disease): Status: Acute (4) Acute alteration in mental status: Status: Acute (5) New onset seizure: Status: Acute Plan So at this point a paroxysmal atrial fibrillator with a hypertensive cardiomyopathy and paroxysmal atrial fibrillation on full anticoagulation presents with 3 witnessed seizures that were fairly spaced apart and each self extinguishing and currently received IV Keppra load and is on Keppra maintenance and sleeping has a gag reflex etiology for the seizure not yet established but he had after the initial episode some right-sided weakness presumably a Ion's paralysis and has a gag reflex present is postictal at this po clinically seizure activity seems to be [place] and at this point nothing further from a critical care standpoint to contribute int Underlying metabolic issue reflecting an advanced stage III level of renal failure with significant azotemia borderline anion gap metabolic acidosis which is relatively trivial it appears that he he mostly at this point has a mild acute respiratory acidosis which can be tracked as he is further out in time from last seizure and is right now undergoing a EEG which at least will probably confirm that there is no persistent nonconvulsive status epilepticus which I do not believe is the case clinically Clinically seizure activity appears to be controlled patient currently postictal potentially the know should awaken shortly unless of course he has had a an and infarct involving reticular activating system and brainstem which is not impossible and MRI might be more informative and the know as to that particular diagnosis and will will await the EEG result and just observe in 0 4 is regaining of cognitive function but in no there is a gag reflex at this point appears to be postictal in sleeping nothing further from critical care standpoint to contribute Time Spent With Patient Time: Total time managing care of this patient today _45___ minutes.
--- NOTE | 2023-07-10 15:32 | PC.NURSE ---
pt has not produced urine this shift, [place] cath in place. bladder scan 483. aware, will order coker cath
--- NOTE | 2023-07-10 15:33 | PM.PSYCN ---
History of Present Illness Date of Service: 07/11/2023 Chief Complaint: Tonic clonic seizures Requesting physician: Chandana Kimbrough Discussed with referring provider: Yes Sources of Information: patient interviewed, chart reviewed and crisis/core team assessment reviewed HPI Narrative: Mr. Garrett is a 72 y/o male with hx of schizophrenia (on rebecca's order), CVA in 03/2023, came with new onset of tonic clonic seizure, one prior to coming to hospital and 2 while in hospital. Pt currently post ictal, not responding presenting comatose. Psych consult re: pt on multiple antipsychotics- including risperidone, olanzapine and haldol. I would recommend at this time to stop risperidone and olanzapine- they lower seizure threshold. if needed use haldol as less risk for lowering seizure threshold. [facility] Medical History (Updated 07/11/23 @ 10:30 by Val Hawthorne) Type 2 diabetes mellitus Hypertensive cardiovascular-renal disease Hypothermia Schizophrenia BPH (benign prostatic hyperplasia) Stage 3b chronic kidney disease (CKD) Left hemiparesis Right pontine CVA Hypertension Recurrent UTI Dysphagia Dementia Chronic diastolic heart failure Paroxysmal A-fib Diabetes mellitus type 2 in obese Diagnostics Vital Signs (24Hr): Vital Signs - 24 hr 07/10/23 04:22 07/10/23 06:06 07/10/23 08:03 Temperature 97.8 F 97.0 F Pulse Rate 90 82 86 Respiratory Rate 15 15 14 Blood Pressure 152/70 H 156/70 H 156/76 H Pulse Oximetry 90 L 92 98 Oxygen Delivery Method Room Air Room Air Nasal Cannula Oxygen Flow Rate 2 07/10/23 11:11 07/10/23 12:20 07/10/23 13:16 Temperature 92.1 F L 93.4 F L 94.5 F L Pulse Rate 87 79 94 Respiratory Rate 15 16 22 H Blood Pressure 167/84 H 103/49 L 170/82 H Pulse Oximetry 98 96 100 Oxygen Delivery Method Oxymask Oxymask Oxymask Oxygen Flow Rate 4 4 4 07/10/23 14:47 Temperature 95.7 F L Pulse Rate 64 Respiratory Rate 21 H Blood Pressure 119/53 L Pulse Oximetry 97 Oxygen Delivery Method Oxymask Oxygen Flow Rate 4 BMI result Body Mass Index 32.2 Labs 07/11/23 06:08 07/11/23 06:08 Labs: Laboratory Results - last 48 hr 07/10/23 07/10/23 07/10/23 03:42 04:38 08:09 WBC 9.8 RBC 3.49 L Hgb 9.9 L Hct 30.6 L MCV 87.7 MCH 28.4 MCHC 32.4 RDW 17.1 H Plt Count 112 L MPV 11.9 Immature Gran % (Auto) 1.5 H Neut % (Auto) 82.4 H Lymph % (Auto) 10.5 L [place] % (Auto) 4.9 Eos % (Auto) 0.5 Baso % (Auto) 0.2 Lymph # (Auto) 1.0 L [place] # (Auto) 0.5 Eos # (Auto) 0.1 Baso # (Auto) 0.0 Abs Immat Gran (auto) 0.15 H Absolute Neuts (auto) 8.1 Absolute Nucleated RBC 0.050 H Nucleated RBC % (auto) 0.5 H PT 11.2 Whole Blood PT 12.2 INR 0.9 Whole Blood INR 1.0 APTT 53.3 H VBG pH VBG pCO2 VBG pO2 VBG HCO3 VBG O2 Saturation VBG Base Excess Sodium 140 Potassium 4.9 Chloride 104 Carbon Dioxide 21 L Anion Gap 20 BUN 65 H Creatinine 3.12 H Estim Creat Clear Calc 22.6 Estimated GFR 20 POC Glucose 202 H Random Glucose 221 H Calcium 10.1 Magnesium 2.2 Total Creatine Kinase 109 Troponin I High Sens 13.4 Urine Color Yellow Urine Appearance Clear Urine pH 6.0 Ur Specific [place] 1.025 Urine Protein 300 (3+) H Urine Glucose (UA) 100 H Urine Ketones Negative Urine Blood Small (1+) H Urine Nitrite Negative Ur Leukocyte Esterase Negative Urine RBC 0-2 Urine WBC 0-5 Ur Squamous Epith Cells 0-2 Urine Bacteria None Seen Hyaline Casts 0-2 07/10/23 12:58 WBC RBC Hgb Hct MCV MCH MCHC RDW Plt Count MPV Immature Gran % (Auto) Neut % (Auto) Lymph % (Auto) [place] % (Auto) Eos % (Auto) Baso % (Auto) Lymph # (Auto) [place] # (Auto) Eos # (Auto) Baso # (Auto) Abs Immat Gran (auto) Absolute Neuts (auto) Absolute Nucleated RBC Nucleated RBC % (auto) PT Whole Blood PT INR Whole Blood INR APTT VBG pH 7.33 VBG pCO2 54 VBG pO2 170 VBG HCO3 29 H VBG O2 Saturation 99.0 VBG Base Excess 2.6 Sodium Potassium Chloride Carbon Dioxide Anion Gap BUN Creatinine Estim Creat Clear Calc Estimated GFR POC Glucose Random Glucose Calcium Magnesium Total Creatine Kinase Troponin I High Sens Urine Color Urine Appearance Urine pH Ur Specific [place] Urine Protein Urine Glucose (UA) Urine Ketones Urine Blood Urine Nitrite Ur Leukocyte Esterase Urine RBC Urine WBC Ur Squamous Epith Cells Urine Bacteria Hyaline Casts Imaging Radiology Impressions: ITS Impressions Head CT 07/10/23 03:50 IMPRESSION: Cerebral volume loss and [id number] bilateral periventricular and central white matter image attenuation which is nonspecific but likely represent microvascular disease. No acute intracranial abnormality. This critical result was discussed with Dr. Cummings at 3:53 AM hours on 05/10/2023.. It was ascertained that the content and urgency of the report was understood at the time of direct communication. Head/Neck CTA 07/10/23 04:11 IMPRESSION: Atherosclerotic plaque of the aortic bifurcation as well as intracranial internal carotid arteries with mild to moderate luminal narrowing in the intracranial internal carotid arteries. The anterior middle and posterior cerebral arteries are patent. No evidence for aneurysm. This critical test result is communicated to: Chest X-Ray 07/10/23 07:46 IMPRESSION: Cannot exclude retrocardiac pneumonia, possible aspiration etiology. KUB X-Ray 07/10/23 09:44 IMPRESSION: Unremarkable examination. Mental Status Exam Mental Status Exam Narrative: comatose Medications Medications Current Medications Acetaminophen (Acetaminophen Supp 650 Mg Supp.Rect) 650 mg [place] Q6H PRN PRN Reason: Pain, Mild (Pain Scale 1-3) Atorvastatin Calcium (Atorvastatin Calcium 20 Mg Tablet) 20 mg PO DAILY [facility] Last Admin: 07/10/23 10:03 Dose: Not Given Docusate Sodium (Docusate Sodium 100 Mg Capsule) 200 mg PO DAILY [facility] Last Admin: 07/10/23 10:03 Dose: Not Given Enoxaparin Sodium (Enoxaparin Sodium 30 Mg/0.3 Ml Syringe) 30 mg SUBCUT Q24H [facility] Last Admin: 07/10/23 12:21 Dose: 30 mg Finasteride (Finasteride 5 Mg Tablet) 5 mg PO DAILY [facility] Last Admin: 07/10/23 10:04 Dose: Not Given Folic Acid (Folic Acid 1 Mg Tablet) 1 mg PO DAILY [facility] Last Admin: 07/10/23 10:04 Dose: Not Given Haloperidol (Haloperidol 5 Mg Tablet) 5 mg PO DAILY [facility] Last Admin: 07/10/23 10:04 Dose: Not Given Haloperidol Decanoate (Haloperidol Decanoate 50 Mg/Ml Ampul) 25 mg IM Q28D [facility] Lactated Ringer's (Lr) 1,000 mls @ 100 mls/hr IVCONT .Q10H [facility] Last Admin: 07/10/23 12:30 Dose: 100 mls/hr Ampicillin Sodium/Sulbactam (Sodium 3 gm/ Sodium Chloride) 100 mls @ 200 mls/hr IV Q12H [facility] Last Infusion: 07/10/23 14:29 Dose: Infused Levetiracetam (Keppra) 1,000 mg in 100 mls @ 400 mls/hr IV Q12H [facility] Levetiracetam (Keppra) 500 mg in 100 mls @ 400 mls/hr IV ONCE ONE Stop: 07/10/23 18:14 Isosorbide Mononitrate (Isosorbide Mononitrate 30 Mg Tab.Er.24h) 30 mg PO DAILY [facility]; Protocol Last Admin: 07/10/23 10:04 Dose: Not Given Lorazepam (Lorazepam 2 Mg/Ml Vial) 1 mg IVPUSH Q2H PRN PRN Reason: Seizures Multivitamins/Vitamin C (Multivitamin Tablet) 1 tab PO DAILY [facility] Last Admin: 07/10/23 10:04 Dose: Not Given Ondansetron HCl (Ondansetron Hcl 4 Mg/2 Ml Vial) 4 mg IVPUSH Q8H PRN PRN Reason: Nausea and Vomiting Sodium Chloride (0.9 % Sodium Chloride Flush 3 Ml Syringe) 3 ml IVFLUSH QSHIFT [facility] Last Admin: 07/10/23 08:02 Dose: 3 ml Sucralfate (Sucralfate 1 Gm Tablet) 1 gm PO TID [facility] Last Admin: 07/10/23 10:05 Dose: Not Given Tamsulosin HCl (Tamsulosin Hcl 0.4 Mg Capsule) 0.8 mg PO BEDTIME [facility] Vitamin D (Cholecalciferol (Vitamin D3) 25 Mcg Tablet) 50 mcg PO DAILY [facility] Last Admin: 07/10/23 10:03 Dose: Not Given Allergies Allergies Allergy/AdvReac Type Severity Reaction Status Date / Time No Known Allergies Allergy Verified 10/06/23 03:39 Assessment & Plan Assessment & Plan (1) Schizophrenia: Status: Acute Code(s): F20.9 - Schizophrenia, unspecified Plan Psych consult re: pt on multiple antipsychotics- including risperidone, olanzapine and haldol. I would recommend at this time to stop risperidone and olanzapine- they lower seizure threshold. if needed use haldol as less risk for lowering seizure threshold. Total time managing care of this patient today ____ minutes.
--- NOTE | 2023-07-10 15:53 | PC.NURSE ---
pt taken off sav humaurilioer, O2 decreased to 2L on oxymask.
--- NOTE | 2023-07-10 16:08 | PC.NURSE ---
temp sensing coker cath in place, rectal temp removed. temp measuring at 95.5.
--- NOTE | 2023-07-10 16:26 | PC.NURSE ---
pt taken to MRI by transport. approved taking pt of cardiac monitoring temporarily
--- NOTE | 2023-07-10 16:34 | PC.NURSE ---
pt off unit to MRI
--- NOTE | 2023-07-10 16:35 | PC.NURSE ---
pt remains largely obtunded, not appropriate to participate in bedside speech and swallow eval. informed speech need for delay.
--- NOTE | 2023-07-10 18:51 | PC.NURSE ---
temp down to 94.8 CORE temp. informed Susana C RN need for sav faizaer to be instituted upon his arrival to the floor.
--- NOTE | 2023-07-10 21:54 | P.DS_ITS ---
DS: Providers Provider Date of Service: 07/10/23 Date of admission: 07/10/23 06:39 Primary care physician: LOR HALEY Consults: 07/10/23 06:20 Consult to Neurology Routine Consulting Provider: [facility] Reason for consultation: New seizure Has provider been notified: No 07/10/23 11:37 Consult to Psychiatry Routine Consulting Provider: Psych Covering Reason for consultation: schizophrenia -on mutliple pysch meds -ca not take po,has seizure/postictal 07/10/23 12:51 Consult to Critical Care Routine Consulting Provider: Tano Bernardo Reason for consultation: levelof care Has provider been notified: No DS: Diagnosis Discharge Diagnosis (1) New onset seizure: Status: Acute DS: Summary Hospital Course Hospital Course: Chief Complaint: seizures 72-year-old male with PMH of?diabetes mellitus type 2,?insulin- dependent,?paroxysmal atrial fibrillation?(on Eliquis),?chronic diastolic congestive heart failure,?dysphagia,?dementia, recurrent UTIs, hypertension, 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 He is given IV, no prior history of seizure. Glucose was greater 200. He was hospitalized at [facility] last month for hypothermia and Hypoglycemia Hospital course: This patient with no prior history of seizures was brought from the snf with a generalized seizure workup with a CT of the brain and CTA of the head and neck showed no acute stroke. He had another seizure in the emergency department (ED) and was given IV Keppra. He later had two more seizures in the ED, and an MRI of the head showed no acute stroke. Neurologist Dr. Santoro saw the patient and recommended an EEG, which has not yet been officially read. He also recommended IV Keppra 1 gram twice a day and Ativan PRN. He advised that a follow-up CT brain be done in 24 hours to rule out infarcts. Current status: The patient has been obtunded but hemodynamically stable, with a normal respiration rate and O2 saturation of 99% on 2 liters by nasal cannula. He has not had a fever, and his WBC is within normal limits at 9.8. The patient has a history of hypothermia and presented with a temperature of 97.8 degrees Fahrenheit. His temperature dropped to 92 degrees Fahrenheit, and he was placed on a warming blanket. His temperature is now 97.2 degrees Fahrenheit. A routine chest X-ray was read as cannot exclude retrocardiac pneumonia and possible aspi ration etiology. The patient has been started on Unasyn empirically to cover for aspiration. He is on IVF with dextrose as he's NPO and had an episode of hypoglycemia with sugar of 56 but has since been corrected, sugars were over 200 on presentation, most recent sugar 109 The ICU (Dr. Bernardo) has assessed the patient and recommends that he be transferred to a site where he can have continuous EEG monitoring for an accurate diagnosis. I contacted [facility], and they are not accepting transfers. [facility] has accepted the patient, and he will be transferred to Dr. Rosales's service. After multiple attempts, I finally reached the patient's daughter and guardian, Bonny Garrett, over the phone, and she was agreeable to the transfer. Daughter and Guardian Bonny Garrett Time Spent with Patient Time attestation: Total time managing care of this patient today ____ minutes. Discharge coordination time: Greater than 30 minutes Quality: Safe Use of Opioids Does Pt have an Active Cancer Diagnosis on the Problem List?: No Quality: Stroke Does the patient have a stroke diagnosis?: No Physical Exam Vital Signs: Vital Signs: Temp 97.2 Bp 130/62 HR 85 o2sat 96 % on 2 L n/c Const: Other: General: Obtunded, no acute distress,breathing comofrtably Resp: CTA bilateral CVS: S1,S2,RRR GI: +BS, NT, no distention Skin: No rash Neuro: motor grossly intact Psych: appropriate affect DS: Data Data Completed and Pending Labs on day of discharge: Laboratory Results - last 24 hr 07/10/23 07/10/23 07/10/23 03:42 04:38 08:09 WBC 9.8 RBC 3.49 L Hgb 9.9 L Hct 30.6 L MCV 87.7 MCH 28.4 MCHC 32.4 RDW 17.1 H Plt Count 112 L MPV 11.9 Immature Gran % (Auto) 1.5 H Neut % (Auto) 82.4 H Lymph % (Auto) 10.5 L [place] % (Auto) 4.9 Eos % (Auto) 0.5 Baso % (Auto) 0.2 Lymph # (Auto) 1.0 L [place] # (Auto) 0.5 Eos # (Auto) 0.1 Baso # (Auto) 0.0 Abs Immat Gran (auto) 0.15 H Absolute Neuts (auto) 8.1 Absolute Nucleated RBC 0.050 H Nucleated RBC % (auto) 0.5 H PT 11.2 Whole Blood PT 12.2 INR 0.9 Whole Blood INR 1.0 APTT 53.3 H VBG pH VBG pCO2 VBG pO2 VBG HCO3 VBG O2 Saturation VBG Base Excess Sodium 140 Potassium 4.9 Chloride 104 Carbon Dioxide 21 L Anion Gap 20 BUN 65 H Creatinine 3.12 H Estim Creat Clear Calc 22.6 Estimated GFR 20 POC Glucose 202 H Random Glucose 221 H Calcium 10.1 Magnesium 2.2 Total Creatine Kinase 109 Troponin I High Sens 13.4 Urine Color Yellow Urine Appearance Clear Urine pH 6.0 Ur Specific [place] 1.025 Urine Protein 300 (3+) H Urine Glucose (UA) 100 H Urine Ketones Negative Urine Blood Small (1+) H Urine Nitrite Negative Ur Leukocyte Esterase Negative Urine RBC 0-2 Urine WBC 0-5 Ur Squamous Epith Cells 0-2 Urine Bacteria None Seen Hyaline Casts 0-2 07/10/23 07/10/23 07/10/23 12:58 17:11 17:40 WBC RBC Hgb Hct MCV MCH MCHC RDW Plt Count MPV Immature Gran % (Auto) Neut % (Auto) Lymph % (Auto) [place] % (Auto) Eos % (Auto) Baso % (Auto) Lymph # (Auto) [place] # (Auto) Eos # (Auto) Baso # (Auto) Abs Immat Gran (auto) Absolute Neuts (auto) Absolute Nucleated RBC Nucleated RBC % (auto) PT Whole Blood PT INR Whole Blood INR APTT VBG pH 7.33 VBG pCO2 54 VBG pO2 170 VBG HCO3 29 H VBG O2 Saturation 99.0 VBG Base Excess 2.6 Sodium Potassium Chloride Carbon Dioxide Anion Gap BUN Creatinine Estim Creat Clear Calc Estimated GFR POC Glucose 56 L* 160 H Random Glucose Calcium Magnesium Total Creatine Kinase Troponin I High Sens Urine Color Urine Appearance Urine pH Ur Specific [place] Urine Protein Urine Glucose (UA) Urine Ketones Urine Blood Urine Nitrite Ur Leukocyte Esterase Urine RBC Urine WBC Ur Squamous Epith Cells Urine Bacteria Hyaline Casts 07/10/23 07/10/23 07/10/23 18:26 18:31 20:11 WBC RBC Hgb Hct MCV MCH MCHC RDW Plt Count MPV Immature Gran % (Auto) Neut % (Auto) Lymph % (Auto) [place] % (Auto) Eos % (Auto) Baso % (Auto) Lymph # (Auto) [place] # (Auto) Eos # (Auto) Baso # (Auto) Abs Immat Gran (auto) Absolute Neuts (auto) Absolute Nucleated RBC Nucleated RBC % (auto) PT Whole Blood PT INR Whole Blood INR APTT VBG pH VBG pCO2 VBG pO2 VBG HCO3 VBG O2 Saturation VBG Base Excess Sodium Potassium Chloride Carbon Dioxide Anion Gap BUN Creatinine Estim Creat Clear Calc Estimated GFR POC Glucose 130 H 130 H 109 Random Glucose Calcium Magnesium Total Creatine Kinase Troponin I High Sens Urine Color Urine Appearance Urine pH Ur Specific [place] Urine Protein Urine Glucose (UA) Urine Ketones Urine Blood Urine Nitrite Ur Leukocyte Esterase Urine RBC Urine WBC Ur Squamous Epith Cells Urine Bacteria Hyaline Casts Discharge Plan Discharge Anticipated Discharge Date/Time: 07/10/23 21:48 Patient Disposition: Xfer Acute Care Hospital Discharge Diagnosis: Seizures Referrals: LOR HALEY [Primary Care Provider] - 1 Week Discharge Medications: New enoxaparin 30 mg/0.3 mL Syringe 30 mg subcut Q24H Qty: 10 0RF levetiracetam in NaCl (iso-os) 1,000 mg/100 mL Piggyback 1,000 mg IV Q12H Qty: 1000 0RF ampicillin-sulbactam 3 gram Recon Soln 3 g IV Q12H Qty: 20 0RF Continued multivitamin Tablet 1 tab PO DAILY atorvastatin 20 mg Tablet 20 mg PO DAILY haloperidol 5 mg Tablet 5 mg PO DAILY sucralfate [Carafate] 1 gram Tablet 1 g PO TID isosorbide mononitrate 30 mg Tablet Extended Release 24 Hr 30 mg PO DAILY olanzapine 5 mg Tablet 5 mg PO DAILY risperidone 3 mg Tablet 3 mg PO BEDTIME risperidone 2 mg Tablet 2 mg PO DAILY tamsulosin 0.4 mg Capsule 0.8 mg PO BEDTIME Humulin R Regular U-100 Insuln 100 unit/mL Solution 1 sliding scale dose SUBCUT USEASDIRECTD Humulin N NPH U-100 Insulin 100 unit/mL Suspension 10 unit SUBCUT BID benztropine 1 mg Tablet 1 mg PO BID docusate sodium 100 mg Capsule 200 mg PO DAILY haloperidol decanoate 50 mg/mL Solution 25 mg IM Q4W folic acid 1 mg Tablet 1 mg PO DAILY finasteride 5 mg Tablet 5 mg PO DAILY cholecalciferol (vitamin D3) 50 mcg (2,000 unit) Tablet 50 mcg PO DAILY Eliquis 5 mg Tablet 5 mg PO BID Discharge Orders: Discharge Order (Routine); Ordered 07/10/23 Ordered By: Nils Obregon Diet: NPO Activity on Discharge: As tolerated Stand Alone Forms: Patient Portal Discharge page Care Plan Goals: seizure control Health Concerns: Multiple seizures Plan of Treatment: Continue IV Keppra and Transfer to [facility] Neuro unit for need for further seizure work up and continuing EEG Assessment: See above
--- NOTE | 2023-07-10 23:26 | MHC.EDTECH ---
@23:22 ALL RECEIVED FROM [facility] OF [facility] LINE WITH ROOM ASSIGNMENT N 9 STEP DOWN RN TO RN NUMBER: [phone] ASK FOR STEPDOWN RN
--- NOTE | 2023-07-11 00:08 | MHC.EDTECH ---
@ 23:33 CALL PLACED TO [facility] FOR THIS PT JEFFREY ANSWERS,TAKES PT INFO AND STATES ONE ALS TRUCK IN [place] @ THIS TIME AND WILL HAVE TO FIGURE OUT THIS TRANSPORT @ 00:07 CALL PLACED TO [facility] TO CHECK ON THIS PT TRANSPORT JEFFREY ANSWERS AND STATES HE WILL START CALLING OTHER AMBULANCE COMPANIES FOR AVAILABILITY OF ALS TRANSPORTATION AND CALL ME BACK
--- NOTE | 2023-07-11 00:43 | MHC.EDTECH ---
@12:42 JEFFREY MCKEON CALLS TO GIVE
--- NOTE | 2023-07-11 03:37 | MHC.EDTECH ---
@03:32 CALL PLACED TO [facility] TO CHECK N AMBULANCE TRANSPORT STATUS. JEFFREY ANSWERS AND STATES NO OTHER COMPANY IS ABLE TO HELP UNDER [employer] A[employer] HE GIVES THESE NAMES AMBULANCE COMPANIES HE HAS CONTACTED: KAYODE, ROXANE, , DON
[2023-07-11 03:56] VITALS: BP 132/63; PULSE 87; RESP 14; TEMP 36.6; O2SAT 95
--- NOTE | 2023-07-11 06:26 | MHC.EDTECH ---
@04:00 JEFFREY MCKEON GIVES 7:30ISH A POSSIBLE ETA FOR PICK FOR THIS PT D/T CREWS COMING ON @ 7AM
[2023-07-11 07:16] LABS: Anion Gap 12 (12-20); Blood Urea Nitrogen 53 mg/dL (9-16); Calcium 9.1 mg/dL (8.4-10.2); Carbon Dioxide 25 mmol/L (22-29); Chloride 112 mmol/L (96-108); Creatinine Clr Calc Pharmacy 24.2; Estimated Glomerular Filt Rate 21; Glucose Random 80 mg/dL (60-115); Potassium 5.2 mmol/L (3.3-5.1); Sodium 144 mmol/L (135-145)
--- NOTE | 2023-07-11 07:47 | MHC.CM.PN ---
Per RN, just waiting for EMS to [facility] Patient for dc/transfer to [facility] this morning.
== END 2023-07-11 08:55 | disposition short-term general hospital (02) | DRG 53 ==
LOC: HO.ED 04:37 → HO.EDOVER 06:44 → HO.IMC 17:17
PROVIDERS: Admitting Provider Internal Medicine; Emergency Provider Internal Medicine; PCP Emergency Medicine; Visit Provider Internal Medicine
DX: R56.9 Unspecified convulsions (principal); N17.9 Acute kidney failure, unspecified; F03.90 Unspecified dementia, unspecified severity, without behavioral disturbance, psychotic disturbance, mood disturbance, and anxiety; I13.0 Hypertensive heart and chronic kidney disease with heart failure and stage 1 through stage 4 chronic kidney disease, or unspecified chronic kidney disease; E11.22 Type 2 diabetes mellitus with diabetic chronic kidney disease; I50.32 Chronic diastolic (congestive) heart failure; N40.1 Benign prostatic hyperplasia with lower urinary tract symptoms; R33.8 Other retention of urine; F20.9 Schizophrenia, unspecified; N18.32 Chronic kidney disease, stage 3b; R68.0 Hypothermia, not associated with low environmental temperature; I69.354 Hemiplegia and hemiparesis following cerebral infarction affecting left non-dominant side; Z87.440 Personal history of urinary (tract) infections; Z79.4 Long term (current) use of insulin; Z79.01 Long term (current) use of anticoagulants; Z79.899 Other long term (current) drug therapy
CPT/HCPCS: 36415; 70450; 70496; 70498; 70551; 71045; 74018; 80048; 81001; 82550; 82803; 82947; 83735; 84484; 85025; 85027; 85610; 85730; 87040; 93005; 95816; 99285; J0295; J1650; J1953; J2060; Q9967

== ENCOUNTER → 2023-07-10 06:39 | Outpatient (BNV) | payer MEDICAID, SELFPAY | PROVIDERS: Admitting Provider Internal Medicine; Emergency Provider Internal Medicine; PCP Emergency Medicine; Visit Provider Social Worker | DX: F20.9 Schizophrenia, unspecified (principal) | CPT/HCPCS: 99232 ==

== ENCOUNTER → 2023-07-10 06:39 | Outpatient (BNV) | payer MEDICAID, SELFPAY | PROVIDERS: Admitting Provider Internal Medicine; Emergency Provider Internal Medicine; PCP Emergency Medicine; Visit Provider Internal Medicine Cardiovascular Disease | DX: I13.10 Hypertensive heart and chronic kidney disease without heart failure, with stage 1 through stage 4 chronic kidney disease, or unspecified chronic kidney disease (principal); E11.9 Type 2 diabetes mellitus without complications; N18.9 Chronic kidney disease, unspecified; R41.82 Altered mental status, unspecified; R56.9 Unspecified convulsions | CPT/HCPCS: 99291 ==

== ENCOUNTER → 2023-07-10 06:39 | Outpatient (BNV) | payer MEDICAID, SELFPAY | PROVIDERS: Admitting Provider Internal Medicine; Emergency Provider Internal Medicine; PCP Emergency Medicine; Visit Provider Internal Medicine | DX: R56.9 Unspecified convulsions (principal) | CPT/HCPCS: 99223; 99236; 99499 ==

== ENCOUNTER 2023-07-23 21:08 | Emergency (ER) | payer MEDICAID, SELFPAY ==
--- NOTE | ~2023-07-23 | CT_ITS ---
EXAMINATION: CT HEAD WITHOUT CONTRAST CLINICAL INFORMATION: Fall. Patient on Eloquis. COMPARISON: 07/10/2023. TECHNIQUE: Contiguous axial imaging was performed from the skull base to vertex without intravenous administration of contrast. This CT examination was performed using dose optimization techniques as appropriate, variously including the following: *Automated exposure control *Adjustment of mA and/or kV according to patient size (this includes techniques or standardized protocols for targeted exams where dose is matched to indication/reason for exam; i.e. extremities or head) *Use of iterative reconstruction technique DLP: 1471 mGy-cm FINDINGS: There is cerebral volume loss with prominence of the lateral and the third ventricles. The cortical sulci are widened appropriately. The fourth ventricle and basal cisterns are normally outlined. There is qgmb-et-eofcbpom bilateral periventricular and central white matter diminished attenuation. Old bilateral thalamic and basal ganglia lacunar infarcts are noted. There also appear to be old pontine lacunar infarcts. There is no acute territorial defect, hemorrhage or midline shift. The extra-axial spaces are unremarkable. Calvarium: Intact. Maxillofacial sinuses and mastoids: Clear as visualized. Cervical spine: There is straightening of the cervical spine curvature. There is diffuse xaaj-fv-moagjzey cervical disc degenerative change most pronounced at C6-C7 with loss of disc space, endplate change and posterior osteophytes most pronounced at C6-C7 associated with mild diffuse facet osteoarthritic hypertrophic change with multilevel mild spinal canal and multilevel neuroforaminal narrowing which is mild to moderate at C6-C7. There is no fracture. The soft tissues are unremarkable. The visualized upper lung funez are clear. CT/CT head/brain wo IV con IMPRESSION: No acute intracranial abnormality. Cervical disc degenerative change. No fracture.
--- NOTE | ~2023-07-23 | CT_ITS ---
EXAMINATION: CT HEAD WITHOUT CONTRAST CLINICAL INFORMATION: Fall. Patient on Eloquis. COMPARISON: 07/10/2023. TECHNIQUE: Contiguous axial imaging was performed from the skull base to vertex without intravenous administration of contrast. This CT examination was performed using dose optimization techniques as appropriate, variously including the following: *Automated exposure control *Adjustment of mA and/or kV according to patient size (this includes techniques or standardized protocols for targeted exams where dose is matched to indication/reason for exam; i.e. extremities or head) *Use of iterative reconstruction technique DLP: 1471 mGy-cm FINDINGS: There is cerebral volume loss with prominence of the lateral and the third ventricles. The cortical sulci are widened appropriately. The fourth ventricle and basal cisterns are normally outlined. There is gyyp-fj-wkbuvzuy bilateral periventricular and central white matter diminished attenuation. Old bilateral thalamic and basal ganglia lacunar infarcts are noted. There also appear to be old pontine lacunar infarcts. There is no acute territorial defect, hemorrhage or midline shift. The extra-axial spaces are unremarkable. Calvarium: Intact. Maxillofacial sinuses and mastoids: Clear as visualized. Cervical spine: There is straightening of the cervical spine curvature. There is diffuse ulug-wm-pjilklgj cervical disc degenerative change most pronounced at C6-C7 with loss of disc space, endplate change and posterior osteophytes most pronounced at C6-C7 associated with mild diffuse facet osteoarthritic hypertrophic change with multilevel mild spinal canal and multilevel neuroforaminal narrowing which is mild to moderate at C6-C7. There is no fracture. The soft tissues are unremarkable. The visualized upper lung funez are clear. CT/CT cervical spine wo IV con IMPRESSION: No acute intracranial abnormality. Cervical disc degenerative change. No fracture.
--- NOTE | 2023-07-23 21:14 | ED_ITS ---
HPI - Fall General Chief Complaint: Fall Stated Complaint: unwit. 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,?CKD stage?IIIb,?BPH schizophrenia?with lack of decision-making capacity wheel chair bound with new onset of seizures 07/10/2023 was in the wheelchair found fell forward with wheelchair intact no significant injury seems like he hit his head 1st patient is on Eliquis no LOC Related Data Home Medications Medication Instructions Recorded Confirmed apixaban 5 mg tablet (Eliquis) 5 mg PO BID 07/10/23 07/23/23 atorvastatin 20 mg tablet 20 mg PO DAILY 07/10/23 07/23/23 cholecalciferol (vitamin D3) 50 50 mcg PO DAILY 07/10/23 07/23/23 mcg (2,000 unit) tablet docusate sodium 100 mg capsule 200 mg PO DAILY 07/10/23 07/23/23 finasteride 5 mg tablet 5 mg PO DAILY 07/10/23 07/23/23 folic acid 1 mg tablet 1 mg PO DAILY 07/10/23 07/23/23 haloperidol decanoate 50 mg/mL 25 mg IM Q4W 07/10/23 07/23/23 intramuscular solution insulin NPH isoph U-100 human 100 10 unit subcut BID 07/10/23 07/23/23 unit/mL subcutaneous suspension (Humulin N NPH U-100 Insulin (isophane susp)) insulin regular human 100 unit/mL 1 sliding scale dose subcut 07/10/23 07/23/23 injection solution (Humulin R USEASDIRECTD Regular U-100 Insulin) multivitamin 1 tab PO DAILY 07/10/23 07/23/23 risperidone 2 mg tablet 2 mg PO BID 07/10/23 07/23/23 risperidone 3 mg tablet 3 mg PO BEDTIME 07/10/23 07/23/23 sucralfate 1 gram tablet (Carafate) 1 g PO TID@0600,1200,1700 07/10/23 07/23/23 tamsulosin 0.4 mg capsule 0.8 mg PO BEDTIME 07/10/23 07/23/23 amlodipine 10 mg tablet 10 mg PO DAILY 07/23/23 07/23/23 levetiracetam 100 mg/mL oral 250 mg PO BID 07/23/23 07/23/23 solution Allergies Allergy/AdvReac Type Severity Reaction Status Date / Time No Known Allergies Allergy Verified 07/10/23 03:39 Review of Systems Review of Systems: Yes all other systems are reviewed and are negative [facility] Past Medical History Medical History Type 2 diabetes mellitus Hypertensive cardiovascular-renal disease Hypothermia Schizophrenia BPH (benign prostatic hyperplasia) Stage 3b chronic kidney disease (CKD) Left hemiparesis Right pontine CVA Hypertension Recurrent UTI Dysphagia Dementia Chronic diastolic heart failure Paroxysmal A-fib Diabetes mellitus type 2 in obese Social History Social History Household Members: Unknown / Unable to assess Unable to assess alcohol history related to: Unable to respond Patient Tobacco Use Status: Tobacco use Unknown Advance Directives: No Advance Directives Information Provided: No Physical Exam Vital Signs: Vital Signs: Last Vital Signs Temp 98.1 F 07/23/23 21:32 Pulse 45 L 07/23/23 21:32 Resp 16 07/23/23 21:32 BP 138/56 L 07/23/23 21:32 Pulse Ox 99 07/23/23 21:32 O2 Del Method Room Air 07/23/23 21:32 BMI result Body Mass Index 32.0 Appearance: Alert. And awake with dementia and residual left-sided hemiparesis Eyes: PERRLA, No Nystagmus ENT: Pharynx normal. Oral Mucosa moist no tongue bite Neck: Normal inspection. Neck supple. CVS: Bradycardia sinus rhythm. Pulses normal. Respiratory: No respiratory distress. Equal air entry bilateral, no wheezing/rales/rhonchi Abdomen: Soft and nontender. Bowel sounds are present, no mass palpable, no CVA tenderness Skin: Skin warm and dry. Normal skin color. Normal skin turgor. Extremities: No lower extremity edema. No calf tenderness Neuro: Alert and awake demented moving all 4 extremities with residual left hemiparesis Medical Decision Making Differential Diagnosis Differential Diagnoses: The differential diagnosis associated with the presentation includes Subdural hemorrhage/skull fracture/cervical fracture Lab Data Labs: Lab Results 07/23/23 Range/Units 21:30 POC Glucose 207 H (60-115) mg/dL Radiology Impression Discussion of test interpretation with radiology: I have reviewed the radiologist's reading. Discharge Plan Discharge Clinical Impression: Fall Patient Disposition: Xfer [facility] Transfer Details: CT scan of the head and C-spine negative Instructions: Fall Prevention for Older Adults (ED) Prescriptions: No Action multivitamin Tablet 1 tab PO DAILY atorvastatin 20 mg Tablet 20 mg PO DAILY sucralfate [Carafate] 1 gram Tablet 1 g PO TID@0600,1200,1700 risperidone 3 mg Tablet 3 mg PO BEDTIME risperidone 2 mg Tablet 2 mg PO BID tamsulosin 0.4 mg Capsule 0.8 mg PO BEDTIME Humulin R Regular U-100 Insuln 100 unit/mL Solution 1 sliding scale dose SUBCUT USEASDIRECTD Protocol: Insulin Correction Scale Less than or equal to 110 ---- Give (units): 0 111 to 150 Give (units): 0 151 to 200 Give (units): 2 201 to 250 Give (units): 4 251 to 300 Give (units): 6 301 to 350 Give (units): 8 Greater than 350 Give (units): 10 Call MD if Blood Glucose > : 350 Humulin N NPH U-100 Insulin 100 unit/mL Suspension 10 unit SUBCUT BID docusate sodium 100 mg Capsule 200 mg PO DAILY haloperidol decanoate 50 mg/mL Solution 25 mg IM Q4W folic acid 1 mg Tablet 1 mg PO DAILY finasteride 5 mg Tablet 5 mg PO DAILY cholecalciferol (vitamin D3) 50 mcg (2,000 unit) Tablet 50 mcg PO DAILY Eliquis 5 mg Tablet 5 mg PO BID amlodipine 10 mg Tablet 10 mg PO DAILY levetiracetam 100 mg/mL Solution 250 mg PO BID Discharge Date/Time: 07/23/23 23:52
[2023-07-23 21:17] VITALS: BP 138/56; PULSE 47; RESP 14; TEMP 36.6; O2SAT 100
--- NOTE | 2023-07-23 21:18 | ECG_ITS ---
Test Reason : CHEST PAIN Blood Pressure : / mmHG Vent. Rate : 043 BPM Atrial Rate : 043 BPM P-R Int : 216 ms QRS Dur : 094 ms QT Int : 526 ms P-R-T Axes : 051 009 019 degrees QTc Int : 444 ms Marked sinus bradycardia with 1st degree A-V block with Premature atrial complexes Nonspecific ST abnormality Abnormal ECG When compared with ECG of 10-JUL-2023 04:18, Premature atrial complexes are now Present Vent. rate has decreased BY [address] elevation now present in Lateral leads Referred By: Woodrow Montgomery Electronically Signed By:LATRICE TRIPP MD
[2023-07-23 21:20] VITALS: BP 111/77; PULSE 52; O2SAT 100
[2023-07-23 21:32] VITALS: BP 138/56; PULSE 45; RESP 16; TEMP 36.7; O2SAT 99; BMI 32.0
[2023-07-23 21:35] LABS: Glucose, Whole Blood 207 mg/dL (60-115)
--- NOTE | 2023-07-23 21:46 | PHA.MEDREC ---
Pharmacy Consult ? Medication Reconciliation Pharmacy has completed the medication reconciliation. Patient came from [facility] with medication list. Mary Nowak, AayushD
--- NOTE | 2023-07-23 23:52 | PC.NURSE ---
pt triage and discharge by charge nurse. This Rn departed pt.
== END 2023-07-23 23:52 | disposition skilled nursing facility (03) ==
PROVIDERS: Emergency Provider Internal Medicine; PCP Emergency Medicine
DX: Z04.3 Encounter for examination and observation following other accident (principal); Z91.81 History of falling; E11.22 Type 2 diabetes mellitus with diabetic chronic kidney disease; I13.0 Hypertensive heart and chronic kidney disease with heart failure and stage 1 through stage 4 chronic kidney disease, or unspecified chronic kidney disease; N18.32 Chronic kidney disease, stage 3b; I50.32 Chronic diastolic (congestive) heart failure; I48.0 Paroxysmal atrial fibrillation; I69.351 Hemiplegia and hemiparesis following cerebral infarction affecting right dominant side; F03.90 Unspecified dementia, unspecified severity, without behavioral disturbance, psychotic disturbance, mood disturbance, and anxiety; Z87.440 Personal history of urinary (tract) infections; Z79.4 Long term (current) use of insulin; Z79.899 Other long term (current) drug therapy; Z79.01 Long term (current) use of anticoagulants
CPT/HCPCS: 70450; 72125; 82947; 93005; 99284

== ENCOUNTER 2024-06-14 10:49 | Inpatient (IN) | payer MEDICAID, SELFPAY ==
[2024-06-14] VITALS (33 sets, daily range): BP systolic 58–133; BP diastolic 27–65; PULSE 44–85; RESP 18–42; TEMP 28.9–35.7; O2SAT 85–100; BMI 28.0
--- NOTE | ~2024-06-14 | XR_ITS ---
EXAMINATION: XR CHEST CLINICAL INFORMATION: Tube placement COMPARISON: Chest radiograph obtained earlier in the day. TECHNIQUE: Frontal view of the chest was obtained. FINDINGS: An ET tube has been placed, tip at the level of the aortic knob, approximately 4 cm above the preeti. NG tube has been placed and is coiled in the distal stomach with tip in the gastric fundus. Prominent cardiac silhouette, aortic calcifications. Patchy bilateral pulmonary opacities. Left costophrenic angle blunting. Bony structures are intact. XR/XR chest 1V IMPRESSION: Lines as described. Prominent cardiac silhouette. Likely bilateral multifocal pneumonia and small left pleural effusion. Electronically signed by: Deidre Rice MD 06/14/2024 01:52 PM EDT
--- NOTE | ~2024-06-14 | CT_ITS ---
EXAMINATION: CT COLONOGRAPHY (CT ABDOMEN AND PELVIS WITHOUT CONTRAST) CLINICAL INFORMATION: Abnormal colonoscopy. History of ischemic colitis. COMPARISON: CT abdomen pelvis 06/22/2024 TECHNIQUE: Bowel preparation: Fair; moderate fluid and some stool limits detail. Stool tagging with Gastrografin and barium: Not used. Colonic distention: CO2 mechanical insufflator used via enema tube with poor distention. Acquisition: Low dose imaging targeted to colonic was performed in the supine and prone positions. Review: The acquired images were reviewed in axial, coronal and sagittal planes. Additional 3-D fly through images were reviewed at an independent workstation. Total exam dose-length product 476 mGy-cm FINDINGS: COLONIC FINDINGS: The colon has large areas that are not distended and significant intraluminal fluid is seen with a small amount of stool in the rectum. The study is not diagnostic for evaluation of large polyps or masses. No thickened bowel loops are seen or evidence to suggest a large bowel obstruction based on this exam. NON COLONIC FINDINGS: Limited evaluation due to the low dose technique. The liver and spleen are not enlarged. No evidence of portal venous gas. The gallbladder is not well evaluated on this study. The pancreas is normal in size. The fat-containing lesion in the left adrenal gland is not well visualized on this study but does not require follow-up. The known hypodense circumscribed lesions in the right kidney are more optimally evaluated on prior study and previously characterized as Bosniak class I cysts which do not require follow-up. The left kidney has cortical scarring and is slightly smaller than the right. No hydronephrosis. No evidence of para-aortic or pelvic lymphadenopathy. The bladder is decompressed by a urinary catheter with a small amount of intraluminal air. No abdominal wall hernia is seen. No evidence of intraperitoneal fluid. The abdominal aorta and iliofemoral and abdominal vasculature is heavily calcified. No evidence of abdominal aortic aneurysm. Degenerative osteophytes are seen in the lower thoracic and lumbar spine with a Schmorl's node at the inferior endplate of L4 and vacuum phenomenon at L5-S1. Dependent atelectasis is seen at the lung bases with trace pleural effusions. Coronary artery calcification is present. CT/CT colonography IMPRESSION: 1. CT colonography is limited due to lack of distention, fluid and a small amount of stool. This study is not diagnostic for evaluation of polyps or masses. No evidence of bowel wall thickening, pneumatosis or portal venous gas. 2. Additional findings as described. Electronically signed by: Gideon Morgan MD 07/01/2024 11:12 AM EDT RP
--- NOTE | ~2024-06-14 | CT_ITS ---
EXAMINATION: CT HEAD WITHOUT IV CONTRAST CT CERVICAL SPINE WITHOUT IV CONTRAST INDICATION: Altered mental status, trauma COMPARISON: CT head and cervical spine on 07/23/2023 TECHNIQUE: Multidetector CT acquisitions of the head, maxillofacial region, and cervical spine were obtained without IV contrast. Multiplanar reformats were acquired and utilized for image interpretation. This CT examination was performed using dose optimization techniques as appropriate, variously including the following: *Automated exposure control *Adjustment of mA and/or kV according to patient size (this includes techniques or standardized protocols for targeted exams where dose is matched to indication/reason for exam; i.e. extremities or head) *Use of iterative reconstruction technique FINDINGS: HEAD: No acute intracranial hemorrhage or infarct. The summers-white matter differentiation is preserved. Patchy hypodensity involving the periventricular and deep white matter compatible with small vessel ischemic disease. Disproportionate widening of the sylvian fissures with a acute callosal angle as well as diffuse prominence of the ventricles. No midline shift or hydrocephalus. No acute extra-axial fluid collections. The osseous structures are unremarkable. No orbital pathology. Mild to moderate mucosal disease of the paranasal sinuses. Hypertrophy of the maxillary sinuses jung. The mastoid air cells are clear. Atherosclerotic calcifications of the bilateral carotid siphons and visualized intracranial vertebral arteries. CERVICAL SPINE: There is anatomic alignment of the vertebral bodies and posterior elements. There is no acute fracture and there is no acute subluxation. The craniocervical and atlantoaxial articulations are normal. There is no prevertebral soft tissue swelling. No significant soft tissue abnormality within the neck. The visualized lung apices are clear. Partially imaged enteric and endotracheal tubes. CT/CT cervical spine wo IV con IMPRESSION: -No acute intracranial abnormality. There is prominence of the ventricles out of proportion to sulci widening, nonspecific however can be seen with a normal pressure hydrocephalus in the appropriate clinical setting. -No acute osseous abnormality within the cervical spine. Electronically signed by: Ari Ewing MD 06/14/2024 04:46 PM EDT
--- NOTE | ~2024-06-14 | CT_ITS ---
EXAMINATION: CT CHEST, ABDOMEN AND PELVIS WITHOUT CONTRAST CLINICAL INFORMATION: Altered mental status with question of bowel COMPARISON: None TECHNIQUE: Multidetector volumetric imaging was performed from the thoracic inlet through the pubic symphysis without IV contrast. Sagittal and coronal reformatted images were obtained on the technologist's workstation. This CT examination was performed using dose optimization techniques as appropriate, variously including the following: *Automated exposure control *Adjustment of mA and/or kV according to patient size (this includes techniques or standardized protocols for targeted exams where dose is matched to indication/reason for exam; i.e. extremities or head) *Use of iterative reconstruction technique DLP: 1132 mGy-cm FINDINGS: CHEST: Lung: An ET tube is present above the preeti. There is dense bilateral lower lobe consolidation with patchy areas of consolidation in the upper lobes, left greater than right dense consolidation is also present in the right middle lobe. Mediastinum: NG tube is present. The heart is enlarged. No aortic aneurysm. Marked coronary calcium is present. No hilar or mediastinal lymphadenopathy. Pericardium/Pleura: No significant effusion. No pleural mass or thickening. Chest Wall/Axilla: Unremarkable ABDOMEN/PELVIS: Peritoneal Space: No significant free air or free fluid identified. Liver, Gallbladder, Biliary Tree: The liver is normal in size, shape, and attenuation. No focal hepatic lesion or biliary ductal dilatation is present. The gallbladder is unremarkable with no evidence of radiopaque gallstones, gallbladder wall thickening, or obvious pericholecystic inflammatory changes. Pancreas: Unremarkable Spleen: Unremarkable Adrenal Glands: There is a benign 0.8 cm myolipoma in the lateral limb of the left adrenal gland. The adrenal glands are otherwise unremarkable. Kidneys and Ureters: The kidneys are normal in size, shape, and attenuation. No hydronephrosis, hydroureter, or calculi seen. Calcifications which are seen in the kidney are vascular 2 benign Bosniak class I renal cysts are noted, the largest measuring 3.0 cm which require no additional imaging or follow-up. No solid renal masses are seen. Bladder: A Burger catheter is present in the bladder which is partially decompressed and contains a small amount of air. Gastrointestinal Tract: NG tube in gastric antrum and the rectum is markedly distended with stool with a large stool burden in the sigmoid colon. The remainder of the colon is unremarkable. There is no pneumatosis. No inflammatory changes are seen around the stool filled colon. The small bowel is unremarkable. The appendix is unremarkable. Abdominal Wall: No significant hernia is appreciated. Lymph Nodes: No lymphadenopathy. Vascular: Calcific atherosclerotic changes are present in the aorta and iliofemoral vessels. There is no evidence of an abdominal aortic aneurysm.. The IVC appears unremarkable. There is no portal venous gas. PELVIC VISCERA: Unremarkable OSSEUS STRUCTURES: Mild degenerative changes are noted in the spine. No bony destructive lesions are seen. CT/CT abdomen pelvis wo IV con IMPRESSION: 1. Large amount of stool in the rectum and sigmoid colon. 2. No evidence of pneumatosis, portal venous gas or free air to suggest bowel ischemia. 3. Dense bilateral lower lobe consolidation with patchy areas of consolidation in the upper lobes and right middle lobe. These findings could be secondary to massive aspiration or infectious etiologies. 4. Incidental note made of benign left adrenal myelolipoma (no follow-up necessary), benign renal cysts which need no additional imaging or follow-up and other findings described above. Fleischner guidelines were followed. Electronically signed by: Canelo De Santiago MD 06/14/2024 06:13 PM EDT
--- NOTE | ~2024-06-14 | XR_ITS ---
EXAMINATION: XR ABDOMEN KUB CLINICAL INDICATION: Distention COMPARISON: CT colonography Earlier today TECHNIQUE: AP view of the abdomen. FINDINGS: The bowel gas pattern is normal with no evidence of ileus or obstruction. There is gaseous distention of the colon with air in small bowel. No unusual soft tissue calcifications are noted. The bones are unremarkable. The diaphragmatic surfaces are not included on the radiograph. XR/XR KUB IMPRESSION: Gaseous distention of the colon with air in small bowel. No evidence of bowel obstruction. Electronically signed by: Canelo De Santiago MD 06/29/2024 06:42 PM EDT
--- NOTE | ~2024-06-14 | XR_ITS ---
EXAMINATION: XR CHEST CLINICAL INFORMATION: Shortness of breath COMPARISON: 07/10/2023 TECHNIQUE: Frontal view of the chest was obtained. FINDINGS: Lung volumes are low. Cardiac silhouette borderline enlarged and difficult to fully evaluate due to low lung volumes bilateral parenchymal disease. Patchy bilateral, probably bibasilar, airspace opacities. Small bilateral pleural effusions. XR/XR chest 1V IMPRESSION: Patchy bilateral, probably bibasilar, airspace opacities. Small bilateral pleural effusions. This study was presented today June 14, 2024 for interpretation. Stat results provided at this time as requested by referring provider. Electronically signed by: Roselia Guerrero MD 06/14/2024 12:17 PM EDT RP
--- NOTE | ~2024-06-14 | XR_ITS ---
EXAMINATION: XR CHEST CLINICAL INFORMATION: NG tube placement COMPARISON: Chest radiograph 06/14/2024 TECHNIQUE: Frontal view of the chest was obtained. FINDINGS: Since the prior study, an NG tube has been removed and a feeding tube with the weighted tip has been placed. The tip is 8.5 cm beyond the GE junction. Again noted is cardiomegaly and chronic airspace disease with improvement in patchy consolidation at both lung bases. XR/XR chest 1V IMPRESSION: Tip of the feeding tube is 8.5 cm beyond the GE junction. Electronically signed by: Canelo De Santiago MD 06/27/2024 11:20 AM EDT
--- NOTE | ~2024-06-14 | CT_ITS ---
EXAMINATION: CT HEAD WITHOUT IV CONTRAST CT CERVICAL SPINE WITHOUT IV CONTRAST INDICATION: Altered mental status, trauma COMPARISON: CT head and cervical spine on 07/23/2023 TECHNIQUE: Multidetector CT acquisitions of the head, maxillofacial region, and cervical spine were obtained without IV contrast. Multiplanar reformats were acquired and utilized for image interpretation. This CT examination was performed using dose optimization techniques as appropriate, variously including the following: *Automated exposure control *Adjustment of mA and/or kV according to patient size (this includes techniques or standardized protocols for targeted exams where dose is matched to indication/reason for exam; i.e. extremities or head) *Use of iterative reconstruction technique FINDINGS: HEAD: No acute intracranial hemorrhage or infarct. The smumers-white matter differentiation is preserved. Patchy hypodensity involving the periventricular and deep white matter compatible with small vessel ischemic disease. Disproportionate widening of the sylvian fissures with a acute callosal angle as well as diffuse prominence of the ventricles. No midline shift or hydrocephalus. No acute extra-axial fluid collections. The osseous structures are unremarkable. No orbital pathology. Mild to moderate mucosal disease of the paranasal sinuses. Hypertrophy of the maxillary sinuses jung. The mastoid air cells are clear. Atherosclerotic calcifications of the bilateral carotid siphons and visualized intracranial vertebral arteries. CERVICAL SPINE: There is anatomic alignment of the vertebral bodies and posterior elements. There is no acute fracture and there is no acute subluxation. The craniocervical and atlantoaxial articulations are normal. There is no prevertebral soft tissue swelling. No significant soft tissue abnormality within the neck. The visualized lung apices are clear. Partially imaged enteric and endotracheal tubes. CT/CT head/brain wo IV con IMPRESSION: -No acute intracranial abnormality. There is prominence of the ventricles out of proportion to sulci widening, nonspecific however can be seen with a normal pressure hydrocephalus in the appropriate clinical setting. -No acute osseous abnormality within the cervical spine. Electronically signed by: Ari Ewing MD 06/14/2024 04:46 PM EDT
--- NOTE | ~2024-06-14 | XR_ITS ---
EXAMINATION: XR CHEST CLINICAL INFORMATION: Hypoxia COMPARISON: 06/27/2024 TECHNIQUE: Frontal view of the chest was obtained. FINDINGS: The heart is enlarged. Compared to the prior study is a slight increase in airspace and interstitial opacities with upper zone redistribution. A small left pleural effusion is present. XR/XR chest 1V IMPRESSION: Cardiomegaly with increasing pulmonary vascular congestion/edema. Electronically signed by: Canelo De Santiago MD 06/30/2024 10:20 AM EDT
--- NOTE | ~2024-06-14 | CT_ITS ---
EXAMINATION: CT ABDOMEN AND PELVIS WITHOUT CONTRAST CLINICAL INFORMATION: Ischemic colitis COMPARISON: 06/14/2024 TECHNIQUE: Multidetector volumetric imaging was performed from the superior aspect of the liver through the pubic symphysis. Sagittal and coronal reformatted images were obtained on the technologist's workstation. IV contrast was not administered per oral contrast was utilized This CT examination was performed using dose optimization techniques as appropriate, variously including the following: *Automated exposure control *Adjustment of mA and/or kV according to patient size (this includes techniques or standardized protocols for targeted exams where dose is matched to indication/reason for exam; i.e. extremities or head) *Use of iterative reconstruction technique DLP: 947 mGy-cm FINDINGS: LUNG BASES: Since the prior study bilateral lower lobe consolidations have resolved as have small pleural effusions. Some basilar atelectasis remains. The heart remains enlarged. ABDOMEN/PELVIS: Peritoneal Space: No significant free air or free fluid identified. Liver, Gallbladder, Biliary Tree: The liver is normal in size, shape, and attenuation. No focal hepatic lesion or biliary ductal dilatation is present. No portal venous gas. The gallbladder is unremarkable with no evidence of radiopaque gallstones, gallbladder wall thickening, or obvious pericholecystic inflammatory changes. 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 No further imaging is necessary. The adrenal glands are otherwise unremarkable. Kidneys and Ureters: The kidneys are normal in size, shape, and attenuation. No hydronephrosis, hydroureter, or calculi seen. The calcifications which are seen in the right kidney are vascular. No nephrolithiasis. 2 benign Bosniak class I renal cysts are noted in the right kidney, the largest measuring 3.0 cm which require no additional imaging or follow-up. No solid renal masses are seen. Bladder: A Burger catheter is present in the bladder which is decompressed. Gastrointestinal Tract: NG tube has been removed. Markedly decreased stool burden in the rectosigmoid since the prior study with appearance is now normal. There is no pneumatosis. No inflammatory changes are seen around the stool filled colon. The small bowel is unremarkable. The appendix is unremarkable. Abdominal Wall: No significant hernia is appreciated. Lymph Nodes: No lymphadenopathy. Vascular: Marked calcific atherosclerotic changes are present in the aorta and iliofemoral vessels. There is no evidence of an abdominal aortic aneurysm.. The IVC appears unremarkable. There is no portal venous gas. PELVIC VISCERA: Unremarkable OSSEUS STRUCTURES: Mild degenerative changes are noted in the spine. No bony destructive lesions are seen. CT/CT abdomen pelvis wo IV con IMPRESSION: 1. No evidence of ischemic colitis, pneumatosis or portal venous gas. 2. Markedly decreased stool burden in the rectosigmoid since the prior study. 3. Other incidental findings as described above. Fleischner guidelines were followed. Electronically signed by: Canelo De Santiago MD 06/22/2024 06:28 PM EDT
--- NOTE | 2024-06-14 10:51 | ECG_ITS ---
Test Reason : DYSPNEA Blood Pressure : / mmHG Vent. Rate : 058 BPM Atrial Rate : 058 BPM P-R Int : 184 ms QRS Dur : 100 ms QT Int : 478 ms P-R-T Axes : 044 014 054 degrees QTc Int : 469 ms Sinus bradycardia Nonspecific ST abnormality Abnormal ECG When compared with ECG of 23-JUL-2023 21:24, Premature atrial complexes are no longer Present ND interval has decreased Non-specific change in ST segment in Inferior leads ST no longer elevated in Anterior leads Referred By: Clover Goetz Electronically Signed By:VLADISLAV CLARKE
[2024-06-14 11:12] LABS: Appearance Urine Turbid; Color Urine Dark Yellow; Glucose Urine UA Negative (Negative); Leukocyte Esterase Urine Moderate (2+) (Negative); Nitrite Urine Negative (Negative); PH >= 9.0 (5.0-9.0); Specific Gravity - Urine 1.025 (1.005-1.025); UMIC TRIGGER UACC YES; Urine Blood Large (3+) (Negative); Urine Ketones Trace mg/dL (Negative); Urine Protein 300 (3+) mg/dL (Neg-Trace)
[2024-06-14 11:15] LABS: Hematocrit 27.9 % (42.0-52.0); Hemoglobin 8.9 g/dl (14.0-18.0); Mean Corpuscular HGB Conc 31.9 g/dl (31.0-36.0); Mean Corpuscular Hemoglobin 27.6 pg (27.0-33.0); Mean Corpuscular Volume 86.4 fL (80.0-98.0); Mean Platelet Volume 10.3 fL (9.4-12.4); NRBC Pct Auto 0.9 /100WBC (0.0-0.2); PLT CLUMP 1; Red Blood Count 3.23 X10*6/uL (4.60-5.80); Red Cell Distribution Width 19.6 % (11.0-16.0); WBC ABN SCTR FOR CBC 1
[2024-06-14 11:17] LABS: White Blood Count 6.5 X10*3/uL (4.8-10.8)
[2024-06-14 11:18] LABS: INTERNATIONAL NORM RATIO 2.2 (0.9-1.1); Platelet Count 128 X10*3/uL (160-400); Prothrombin Time 26.8 SEC (11.1-13.3)
--- NOTE | 2024-06-14 11:18 | PC.NURSE ---
pt noted to be hypothermic when obtaining rectal temperature. rectal temp obtained displaying 90.2. rectal probe now in place. pt placed on bear hugger in attempts to regulate body temperature. effectiveness pending. rectal probe currently displaying 89.2. pt otherwise remains hypotensive and hypoxic. pt remains on bipap - resting @ 93% w/ a rate of 16/8.
[2024-06-14 11:19] LABS: VBG Base Excess -11.1 mmol/L; VBG HCO3 17 mmol/L (22-26); VBG pCO2 53 mmHg; VBG pH 7.12 (7.32-7.43); VBG pO2 65 mmHg
[2024-06-14 11:20] LABS: Venous Blood Gas Refer to POC result
[2024-06-14] MEDS: 0.9 % Sodium Chloride 1,000 ML 999 ML IV ×2 (11:22→12:13)
[2024-06-14] MEDS: cefEPime HCl 2 GM in 0.9 % Sodium Chloride 50 ML IV (11:23)
[2024-06-14 11:29] LABS: Bacteria Urine 1+ (None Seen); Hyaline Casts Urine 0-2 /LPF (0-2); Other Crystals Urine Present; RBC Urine >20 /HPF (0-2); Squamous Epithelial Cell Urine 0-2 /HPF (0-2); UACC Culture Trigger YES; WBC Urine 21-50 /HPF (0-5)
[2024-06-14 11:35] LABS: Troponin-I High Sensitivity 3.9 ng/L (<3.5-35.0)
--- NOTE | 2024-06-14 11:40 | PC.NURSE ---
pt intubated by Dr. Rossi @ 1132. ETT tube size 7.5 and 23 cm @ lip. OG tube also placed @ 1135 - confirmed w/ draw back as well as chest xray. OG tube hooked to wall suction - 1000ml of dark brown gastric drainage immediately post output. pt otherwise remains hypotensive as well as hypothermic. pt currently not on deangelo elmore d/t Dr. Rossi placing a right sided femoral central line at this time.
[2024-06-14 11:45] LABS: Alanine Aminotransferase 19 U/L (0-40); Alkaline Phosphatase 174 U/L (39-117); Anion Gap 26 (12-20); Aspartate Amino Transferase 17 U/L (5-37); Bilirubin Total 0.3 mg/dL (0.0-1.0); Blood Urea Nitrogen 55 mg/dL (9-16); Calcium 10.3 mg/dL (8.4-10.2); Carbon Dioxide 17 mmol/L (22-29); Chloride 102 mmol/L (96-108); Creatinine Clr Calc Pharmacy 24.3; Estimated Glomerular Filt Rate 21; Glucose Random 195 mg/dL (60-115); Magnesium 2.4 mg/dL (1.6-2.6); Sodium 140 mmol/L (135-145); Total Protein 7.2 g/dL (6.5-8.0)
[2024-06-14 11:48] LABS: Partial Thromboplastin Time 68.8 SEC (26.0-36.8)
[2024-06-14 11:48] LABS: B Type Natriuretic Peptide 206 pg/mL (<100)
[2024-06-14 11:50] LABS: Lactic Acid 12.6 mmol/L (0.5-2.0)
[2024-06-14 11:53] LABS: Neutrophils Percent Manual 50 % (45-73)
[2024-06-14 11:55] LABS: Band Neutrophils Percent 36 % (3-5); Lymphocytes Absolute Manual 0.7 X10*3/uL (1.2-4.9); Lymphocytes Percent Manual 10 % (20-40); Monocytes Absolute Manual 0.2 X10*3/uL (0.1-1.2); Monocytes Percent Manual 3 % (2-11); Myelocytes Absolute 0.1 X10*/uL; Myelocytes Percent 1 %; Neutrophils Absolute Manual 5.6 X10*3/uL (2.0-8.3); Nucleated Red Blood Cells 3 /100WBC (0-0)
[2024-06-14 11:56] LABS: Burr Cells 3+ (>5) /OIF; Ovalocytes 1+ (5-14) /OIF; RBC Morphology NOTED
[2024-06-14 12:00] LABS: Dohle Bodies PRESENT; Platelet Estimate SLIGHTLY DECREASED (NORMAL)
[2024-06-14 12:01] LABS: Large Platelet PRESENT; Platelet Morphology Comment NOTED; Polychromasia 1+ (0-2) /OIF
--- OUTSIDE RECORDS SUMMARY | 2024-06-14 12:01 | XMS_ITS | Continuity of Care Document ---
Author Organization [facility] Address [address] [place] [id number]- Care Team Providers Care Power Lineman Name Role Phone Not on Staff, PCP Primary Care Physician Unavail able Encounter [facility] Date(s): 01/25/24 - 02/24/24 [facility] [address] [place] [id number]- [place] Allergies, Adverse Reactions, Alerts No Known Allergies Immunizations Given and Recorded Vaccine Date Status Refusal Reason influenza virus vaccine, inactivated 08/06/21 Perez rded influenza virus vaccine, inactivated 08/09/18 Perez rded SARS-CoV-2 (COVID-19) Ad26 vaccine 06/21/21 Record ed SARS-CoV-2 (COVID-19) Ad26 vaccine 06/21/21 Record ed Medications Acephen 650 mg rectal suppository 1 supp = 650 mg, Rectally, Every 8 hours, PRN Pain , Mild, Fever >101, Maintenance, 02/13/24 15:38:00 EDT, Suppository, Partial fill upon patient request if the prescription is for a schedule II opioid drug. Start Date: 02/13/24 Status: Ordered amLODIPine 10 mg oral tablet 10 mg, 1, tablet, By Mouth, Daily in AM, Refills 0, Maintenance, 08/11/23 17:00:00 EST, Partial fill upon patient request if the prescription is for a schedule II opioid drug. Start Date: 08/11/23 Status: Ordered atorvastatin 20 mg oral tablet 1 tablet = 20 mg, By Mouth, Daily at bedtime, 0 Refills, Maintenance, 02/10/23 0:33:00 EDT, Tablet,Partial fill upon patient request if the prescription is for a schedule II opioid drug. Start Date: 02/10/23 Status: Ordered Augmentin 500 Tablet 1, tablet, By Mouth, 2 times a day, Maintenance, 02/16/24 11:13:00 EDT Start Date: 02/16/24 Stop Date: 02/20/24 Status: Ordered benztropine 1 mg oral tablet 1 mg, By Mouth, 2 times a day, Refills 0, Maintenance, 08/21/23 11:49:00 EST, Partial fill upon patient request if the prescription is for a schedule II opioid drug. Start Date: 08/21/23 Status: Ordered Carafate 1 gm oral tablet 1 Gm, 1, tablet, By Mouth, 3 times a day, 6 AM, 12 PM & 5 PM NOT ON PAPER CHART, Refills 0, Maintenance, 03/15/23 11:55:00 EDT, Partial fill upon patient request if the prescription is for a schedule II opioid drug. Start Date: 03/15/23 Status: Ordered cholecalciferol 2000 intl units oral tablet 1 tablet = 50 mcg, By Mouth, Daily in AM, 0 Refills, Maintenance, 08/11/23 17:05:00 EST, Partial fill upon patient request if the prescription is for a schedule II opioid drug. Start Date: 08/11/23 Status: Ordered Daily Seema oral tablet 1 tablet, By Mouth, Daily in AM, Maintenance, 02/10/23 13:39:00 EDT, Tablet, Partial fill upon patient request if the prescription is for a schedule II opioid drug. Start Date: 02/10/23 Status: Ordered Dulcolax 10 mg rectal suppository 1 supp = 10 mg, Rectally, Daily, PRN as needed for constipation, Maintenance, 02/13/24 15:40:00 EDT, Suppository, Partial fill upon patient request if the prescription is for a schedule II opioid drug. Start Date: 02/13/24 Status: Ordered Eliquis 5 mg oral tablet 1 tablet = 5 mg, By Mouth, 2 times a day, Maintenance, 05/28/23 19:42:00 EDT, Tablet, Partial fill upon patient request if the prescription is for a schedule II opioid drug. Start Date: 05/28/23 Status: Ordered ferrous sulfate 325 mg oral enteric coated tablet 325 mg, By Mouth, Every other day, Refills 0, Maintenance, 02/16/24 10:58:00 EDT, Partial fill uponpatient request if the prescription is for a schedule II opioid drug. Start Date: 02/16/24 Status: Ordered finasteride 5 mg oral tablet 1 tablet = 5 mg, By Mouth, Daily in AM, 0 Refills, Maintenance, 08/11/23 17:02:00 EST, Tablet, Partial fill upon patient request if the prescription is for a schedule II opioid drug. Start Date: 08/11/23 Status: Ordered folic acid 1 mg oral tablet 1 mg, 1, tablet, By Mouth, Daily in AM, # 30 tablet, Refills 0, Maintenance, 08/11/23 17:02:00 EST,Partial fill upon patient request if the prescription is for a schedule II opioid drug. Start Date: 08/11/23 Status: Ordered guaiFENesin 100 mg/5 mL oral liquid 20 mL = 400 mg, By Mouth, 2 times a day, PRN for cough, Maintenance, 02/13/24 15:30:00 EDT, Liquid,Partial fill upon patient request if the prescription is for a schedule II opioid drug. Start Date: 02/13/24 Stop Date: 02/17/24 Status: Ordered Gvoke HypoPen 1 mg/0.2 mL subcutaneous solution = 1 mg, Subcutaneous Injection, Once, PRN Hypoglycemia, 0 Refills, Maintenance, 08/11/23 17:08:00 EST, Partial fill upon patient request if the prescription is for a schedule II opioid drug. Start Date: 08/11/23 Status: Ordered haloperidol decanoate 50 mg/ml injectable solution 0.5 mL = 25 mg, Intramuscular, Every 28 days, STARTED 06/02/23, Maintenance, 02/10/23 13:27:00 EDT, Partial fill upon patient request if the prescription is for a schedule II opioid drug. Start Date: 02/10/23 Status: Ordered Imdur 30 mg oral tablet, extended release 1, tablet, By Mouth, Daily in AM, Refills 0, Maintenance, 08/21/23 11:50:00 EST, Partial fill upon patient request if the prescription is for a schedule II opioid drug. Start Date: 08/21/23 Status: Ordered Insta-Glucose 24 g/31 g oral gel See Instructions, gel BS <60 with S/S (if resident is able to take by mouth) give glucose 1 tubeby mouth - recheck & retreat every 15min until greater than 100 BS, 0 Refills, Maintenance, 08/11/23 17:09:00 EST, Partial fill upon patient request if th... Start Date: 08/11/23 Status: Ordered insulin lispro 100 units/mL injectable solution 2-10 units, Subcutaneous Injection, 2 times a day with meals, Inject morning & evening as per sliding scale: 150-200=2 units 201-250=4 units 251-300=6 units 301-350=8 units 351-400=1 units call MD if <70 or >400, 0 Refills, Maintenance, 08/21/23... Start Date: 08/21/23 Status: Ordered lactulose 10 gm/15 ml oral syrup 45 mL = 30 Gm, By Mouth, Daily in AM, 0 Refills, Maintenance, 09/01/23 14:28:00 EST, Syrup, Partialfill upon patient request if the prescription is for a schedule II opioid drug. Start Date: 09/01/23 Status: Ordered Lantus Inj 0.04 mL = 4 units, Subcutaneous Injection, Daily at bedtime, 0 Refills, Maintenance, 02/16/24 10:58:00 EDT, Injection, Partial fill upon patient request if the prescription is for a schedule II opioid drug. Start Date: 02/16/24 Status: Ordered levETIRAcetam 100 mg/mL oral solution 2.5 mL = 250 mg, By Mouth, 2 times a day, 0 Refills, Maintenance, 09/01/23 14:43:00 EST, Solution, Partial fill upon patient request if the prescription is for a schedule II opioid drug. Start Date: 09/01/23 Status: Ordered Minerin topical cream Topically, Daily at bedtime, to bilateral feet, 0 Refills, Maintenance, 09/01/23 14:49:00 EST, Partial fill upon patient request if the prescription is for a schedule II opioid drug. Start Date: 09/01/23 Status: Ordered pantoprazole 40 mg oral delayed release tablet 1 tablet = 40 mg, By Mouth, 2 times a day, 0 Refills, Maintenance, 09/09/23 12:04:00 EST, EC Tablet Start Date: 09/09/23 Status: Ordered risperiDONE 2 mg oral tablet 2 mg, 1, tablet, By Mouth, 2 times a day, Maintenance, 02/10/23 13:30:00 EDT, Partial fill upon patient request if the prescription is for a schedule II opioid drug. Start Date: 02/10/23 Status: Ordered Senna 8.6 mg oral tablet 17.2 mg, 2, tablet, By Mouth, Daily, PRN, Refills 0, Maintenance, for constipation, 08/11/23 17:07:00 EST, Tablet, Partial fill upon patient request if the prescription is for a schedule II opioid drug. Start Date: 08/11/23 Status: Ordered Synthroid 0.1 mg oral tablet = 100 mcg, By Mouth, Daily, 0 Refills, Maintenance, 08/21/23 11:51:00 EST, Tablet, Partial fill upon patient request if the prescription is for a schedule II opioid drug. Start Date: 08/21/23 Status: Ordered tamsulosin 0.4 mg oral capsule 0.8 mg, 2, capsule, By Mouth, Daily at bedtime, Refills 0, Maintenance, 02/10/23 0:35:00 EDT, Partial fill upon patient request if the prescription is for a schedule II opioid drug. Start Date: 02/10/23 Status: Ordered thiamine 100 mg oral tablet 100 mg, 1, tablet, By Mouth, Daily in AM, Refills 0, Maintenance, 09/08/23 12:55:00 EST, Partial fill upon patient request if the prescription is for a schedule II opioid drug. Start Date: 09/08/23 Status: Ordered Problem List Condition Confirmation Course Effective Dates Status H ealth Status Informant Acute hypoxic respiratory failure Confirmed Active AD (Alzheimer's disease) Confirmed Active Anemia in chronic kidney disease Confirmed Active Anemia of chronic disease Confirmed Active Xerosis cutis Confirmed Active Atrial fibrillation Confirmed Active BPH (benign prostatic hyperplasia) Confirmed Active Stage III chronic kidney disease Confirmed Active CKD (chronic kidney disease) stage 4, GFR 15-29 ml/min Confirmed Active Chronic obstructive pulmonary disease Confirmed Active CHF (congestive heart failure) Confirmed Active Coronary artery disease Confirmed Active Dementia Confirmed Active Wheelchair dependent Confirmed Active 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 Confirmed Active Dysphagia Confirmed Active Expressive aphasia Confirmed Active GERD (gastroesophageal reflux disease) Confirmed Active History of CVA with residual deficit Confirmed Active Hypertension Confirmed Active Hypothyroidism Confirmed Active Cognitive impairment Confirmed Active Chronic anticoagulation Confirmed Active Emotional lability Confirmed Active Multifocal pneumonia Confirmed Active Pressure ulcer of coccygeal region, stage 2 Confirmed Active Urine retention Confirmed Active Schizophrenia Confirmed Active Seizure disorder Confirmed Active Major depressive disorder, recurrent episode, severe Confirmed Active Type 2 diabetes mellitus Confirmed Active Social History Social History Type Response Sex Male Patient Care team information Care Team Personnel Name: Andi RNJanice Position: [facility] RN Member Role: Primary Care Nurse Name: Mary Carmen Camara RN Position: [facility] RN Member Role: Primary Care Nurse Name: Mayra Ron RN Position: [facility] RN Member Role: Primary Care Nurse Name: Tammy Sheriff RN Position: [facility] RN Member Role: Primary Care Nurse Name: Corwin Rosas RN Position: [facility] RN Member Role: Primary Care Nurse Name: Barrera RNRishabh Position: [facility] RN Member Role: Primary Care Nurse Name: Dhruv Christopher RN Position: [facility] RN Supv Member Role: Primary Care Nurse Name: Leann Forbes RN Position: [facility] RN Member Role: Primary Care Nurse Name: Ebony Bolanos RN Position: [facility] RN Member Role: Primary Care Nurse Name: Monica Camp RN Position: [facility] RN Member Role: Primary Care Nurse Name: Isaiah Hurt RN Position: [facility] RN Member Role: Primary Care Nurse Name: Torito Nicole RN Position: [facility] RN Member Role: Primary Care Nurse Name: Fatimah Greco RN Position: [facility] RN Member Role: Primary Care Nurse Name: Tanya Love RN Position: [facility] RN Member Role: Primary Care Nurse Name: Ibis Vogel RN Position: [facility] RN Member Role: Primary Care Nurse Name: Mayra Maloney RN Position: [facility] RN Member Role: Primary Care Nurse Name: Kellee Solis RN Position: [facility] RN Member Role: Primary Care Nurse Name: Adore Pike RN Position: [facility] RN Member Role: Primary Care Nurse Name: Rody Bianchi RN Position: [facility] RN Member Role: Primary Care Nurse Name: Emma Mcgee Position: [facility] RN Member Role: Primary Care Nurse Name: Yamileth Rivera MD Position: [facility] Renal MD Member Role: Lifetime Consulting Physician Address: Address: [address] [place] [address] [facility], [place] [address]- Name: Marly Cochran RN Position: [facility] RN Member Role: Primary Care Nurse Name: Not on Staff, PCP Position: [facility] Physician (General Medicine) Member Role: PCP Name: Trinity Machado LPN Position: S RN Member Role: Primary Care Nurse Name: Jill Wilson RN Position: S RN Member Role: Primary Care Nurse Name: Rosa Francis RN Position: S RN Member Role: Primary Care Nurse Name: Ketan Bolanos MD Position: [facility] Renal MD Member Role: Lifetime Consulting Physician Address: Address: [address] [place] [address] [address] [facility] [address] Name: Neri Solo RN Position: [facility] RN Member Role: Primary Care Nurse Name: Sharita Thomas RN Position: [facility] RN Member Role: Primary Care Nurse Name: Suzan Arriaga RN Position: [facility] RN Member Role: Primary Care Nurse Name: Will Polo MD Position: [facility] Renal MD Member Role: Lifetime Consulting Physician Address: Address: [address] [place] [address] [facility] [address] Name: Donna Echavarria RN Position: [facility] RN Member Role: Primary Care Nurse Name: Deanna Kingsley LPN Position: [facility] RN Member Role: Primary Care Nurse Name: Juan Pablo Monteiro RN Position: [facility] RN Member Role: Primary Care Nurse Name: Bibiana Woods RN Position: [facility] RN Member Role: Primary Care Nurse Name: Sandie Kwok RN Position: [facility] RN Member Role: Primary Care Nurse Name: Dmitri Rankin RN Position: [facility] RN Member Role: Primary Care Nurse Care Team Related Persons Name: MALIHA CALVO Address: home [address] [place], [address] Name: JOE PIPER Address: home [address] [facility] [address]
--- OUTSIDE RECORDS SUMMARY | 2024-06-14 12:01 | XMS_ITS | Continuity of Care Document ---
Author Organization [facility] Address [address] [place] [address]- Care Team Providers Care Costuming Supervisor Name Role Phone Mark Arredondo MD Primary Care Physician [phone] Encounter [facility] Date(s): 01/22/24 - 01/22/[address] [address]- Discharge Disposition: A-D/C Home Attending Physician: Jude Gusman MD Admitting Physician: Jude Gusman MD Referring Physician: Jude Gusman MD Allergies, Adverse Reactions, Alerts No Known Allergies Immunizations Given and Recorded Vaccine Date Status Refusal Reason influenza virus vaccine, inactivated 08/06/21 Perez rded influenza virus vaccine, inactivated 08/09/18 Perez rded SARS-CoV-2 (COVID-19) Ad26 vaccine 06/21/21 Record ed SARS-CoV-2 (COVID-19) Ad26 vaccine 06/21/21 Record ed Medications acetaminophen 325 mg oral tablet 650 mg, 2, tablet, By Mouth, Every 8 hours, PRN, Maintenance, pain/fever >101F, 03/04/23 16:41:00 EDT, Partial fill upon patient request if the prescription is for a schedule II opioid drug. Start Date: 03/04/23 Status: Ordered amLODIPine 10 mg oral tablet 10 mg, 1, tablet, By Mouth, Daily in AM, # 30 tablet, Refills 0, Maintenance, 08/11/23 17:00:00 EST, Partial [...] opioid drug. Start Date: 02/10/23 Status: Ordered benztropine 1 mg oral tablet 1 mg, By Mouth, 2 times a day, Refills 0, Maintenance, 08/21/23 11:49:00 EST, Partial fill upon patient request if the prescription is for a schedule II opioid drug. Start Date: 08/21/23 Status: Ordered bisacodyl 10 mg rectal suppository 1 supp = 10 mg, Rectally, Every 72 hours, PRN if no BM in 3 days, if MOMis ineffective, Maintenance, 02/10/23 13:36:00 EDT, Suppository, Partial fill upon patient request if the prescription is for aschedule II opioid drug. Start Date: 02/10/23 Status: Ordered Carafate 1 gm oral tablet [...] opioid drug. Start Date: 02/10/23 Status: Ordered docusate sodium 100 mg oral capsule 200 mg, 2, capsule, By Mouth, Daily in AM, Maintenance, 05/28/23 19:38:00 EDT, Partial fill upon patient request if the prescription is for a schedule II opioid drug. Start Date: 05/28/23 Status: Ordered Eliquis 5 mg oral tablet 1 tablet = 5 mg, By Mouth, 2 times a day, Maintenance, 05/28/23 19:42:00 EDT, Tablet, Partial fill upon patient request if the prescription is for a schedule II opioid drug. Start Date: 05/28/23 Status: Ordered finasteride 5 mg oral tablet 1 tablet = 5 mg, By Mouth, Daily in AM, # 30 tablet, 0 Refills, Maintenance, 08/11/23 17:02:00 EST,Tablet, Partial fill upon patient request if the prescription is for a schedule II opioid drug. Start Date: 08/11/23 Status: Ordered Fleet Enema 19 gm-7 gm rectal enema 1 each, Rectally, Every 72 hours, PRN if no BM in 3 days, if suppository is ineffective, Maintenance, 02/10/23 13:37:00 EDT, Enema, Partial fill upon patient request if the prescription is for a schedule II opioid drug. Start Date: 02/10/23 Status: Ordered folic acid 1 mg oral tablet 1 mg, 1, tablet, By Mouth, Daily in AM, # 30 tablet, Refills 0, Maintenance, 08/11/23 17:02:00 EST,Partial fill upon patient request if the prescription is for a schedule II opioid drug. Start Date: 08/11/23 Status: Ordered Glucagon Emergency Kit for Low Blood Sugar 1 mg injection = 1 mg, Intramuscular, Once, PRN low blood sugar <60 or >300, Maintenance, 02/10/23 13:42:00 EDT, Partial fill upon patient request if the prescription is for a schedule II opioid drug. Start Date: 02/10/23 Status: Ordered glucose 40% oral gel = 15 Gm, By Mouth, Once, PRN low blood sugar <60, Maintenance, 02/10/23 13:38:00 EDT, Partial fill upon patient request if the prescription is for a schedule II opioid drug. Start Date: 02/10/23 Status: Ordered Gvoke HypoPen 1 mg/0.2 mL [...] Imdur 30 mg oral tablet, extended release 30 mg, By Mouth, Daily, Refills 0, Maintenance, 08/21/23 11:50:00 EST, Partial [...] units/mL injectable solution 2-10 units, Subcutaneous Injection, 3 times a day with meals, 0 Refills, Maintenance, 08/21/23 11:51:00 EST, Injection, Partial fill upon patient request if the prescription is for a schedule II opioid drug. Start Date: 08/21/23 Status: Ordered lactulose 10 gm/15 ml oral syrup 30 mL = 20 Gm, By Mouth, Daily, # 480 mL, 0 Refills, Maintenance, 09/01/23 14:28:00 EST, Syrup, Partial fill upon patient request if the prescription is for a schedule II opioid drug. Start Date: 09/01/23 Status: Ordered levETIRAcetam 100 mg/mL oral solution 2.5 mL = 250 mg, By Mouth, 2 times a day, # 150 mL, 0 Refills, Maintenance, 09/01/23 14:43:00 EST, Solution, Partial fill upon patient request if the prescription is for a schedule II opioid drug. Start Date: 09/01/23 Status: Ordered Minerin topical cream Topically, Daily at bedtime, to bilateral feet, 0 Refills, Maintenance, 09/01/23 14:49:00 EST, Partial fill upon patient request if the prescription is for a schedule II opioid drug. Start Date: 09/01/23 Status: Ordered MOM Liquid 30 mL, By Mouth, Every 72 hours, PRN if no BM in 3 days, Maintenance, 02/10/23 13:39:00 EDT, Partial fill upon patient request if the prescription is for a schedule II opioid drug. Start Date: 02/10/23 Status: Ordered olanzapine 5 mg oral tablet 5 mg, By Mouth, Daily at bedtime, Refills 0, Maintenance, 08/21/23 11:51:00 EST, Partial fill upon patient request if the prescription is for a schedule II opioid drug. Start Date: 08/21/23 Status: Ordered pantoprazole 40 mg oral delayed release tablet = 40 mg, By Mouth, 2 times a day, continue until endoscopy obtained, 0 Refills, Maintenance, 09/09/23 12:04:00 EST, EC [...] mg, 2, tablet, By Mouth, Daily, PRN, # 100 tablet, Refills 0, Maintenance, for constipation, 08/11/23 17:07:00 [...] thiamine 100 mg oral tablet 100 mg, By Mouth, Daily, Refills 0, Maintenance, 09/08/23 12:55:00 EST, Partial fill upon patient request if the prescription is for a schedule II opioid drug. Start Date: 09/08/23 Status: Ordered Problem List Condition Confirmation Course Effective Dates Status H ealth Status Informant Anemia of chronic disease Confirmed Active Atrial fibrillation Confirmed Active Stage III chronic kidney disease Confirmed Active Chronic obstructive pulmonary disease Confirmed Active CHF (congestive heart failure) Confirmed Active Coronary artery disease Confirmed Active Dementia Confirmed Active Dysphagia Confirmed Active GERD (gastroesophageal reflux disease) Confirmed Active History of CVA with residual deficit Confirmed Active Hypertension Confirmed Active Hypothyroidism Confirmed Active Cognitive impairment Confirmed Active Schizophrenia Confirmed Active Seizure disorder Confirmed Active Type 2 diabetes mellitus Confirmed Active Social History Social History Type Response Sex Male Patient Care team information Care Team Personnel Name: Janice Escamilla RN Position: [facility] RN Member Role: Primary Care Nurse Name: Mary Carmen Camara RN Position: [facility] RN Member Role: Primary Care Nurse Name: Brett Post RN Position: [facility] RN Member Role: Primary Care Nurse Name: Mayra Lofton RN Position: [facility] RN Member Role: Primary Care Nurse Name: Corwin Rosas RN Position: [facility] RN Member Role: Primary Care Nurse Name: Rishabh Barrera RN Position: [facility] RN Member Role: Primary Care Nurse Name: Dhruv Christopher RN Position: [facility] RN Supute Member Role: Primary Care Nurse Name: Leann Forbes RN Position: [facility] RN Member Role: Primary Care Nurse Name: Monica Camp RN Position: [facility] RN Member Role: Primary Care Nurse Name: Isaiah Hurt RN Position: [facility] RN Member Role: Primary Care Nurse Name: Torito Nicole RN Position: [facility] RN Member Role: Primary Care Nurse Name: Fatimah Greco RN Position: [facility] RN Member Role: Primary Care Nurse Name: Tanya Love RN Position: [facility] RN Member Role: Primary Care Nurse Name: Ibis Vogel RN Position: [facility] RN Member Role: Primary Care Nurse Name: Kellee Solis RN Position: [facility] RN Member Role: Primary Care Nurse Name: Adore Pike RN Position: [facility] RN Member Role: Primary Care Nurse Name: Rody Bianchi RN Position: [facility] RN Member Role: Primary Care Nurse Name: Emma Mcgee Position: [facility] RN Member Role: Primary Care Nurse Name: Apoorva Abel RN Position: [facility] RN Member Role: Primary Care Nurse Name: Yamileth Rivera MD Position: [facility] Renal MD Member Role: Lifetime Consulting Physician Address: Address: [address] [facility] [place] [address]- [place] Name: Marly Cochran RN Position: S RN Member Role: Primary Care Nurse Name: Trinity Machado LPN Position: S RN Member Role: Primary Care Nurse Name: Rosa Francis RN Position: S RN Member Role: Primary Care Nurse Name: Ketan Bolanos MD Position: [facility] Renal MD Member Role: Lifetime Consulting Physician Address: Address: [address] [facility] [address] [facility] [place] [address]- Name: Mark Arredondo MD Position: [facility] Outreach Member Role: PCP Address: Address: [address] [place] [address] [place] [address]- Name: Neri Solo RN Position: S RN Member Role: Primary Care Nurse Name: Sharita Thomas RN Position: S RN Member Role: Primary Care Nurse Name: Suzan Arriaga RN Position: S RN Member Role: Primary Care Nurse Name: Will Polo MD Position: [facility] Renal MD Member Role: Lifetime Consulting Physician Address: Address: [address] [place] [address] [facility] [place] [place] [address]- Name: Harris Goodman RN Position: S RN Member Role: Primary Care Nurse Name: Deanna Kingsley LPN Position: S RN Member Role: Primary Care Nurse Name: Juan Pablo Monteiro RN Position: S RN Member Role: Primary Care Nurse Name: Bibiana Woods RN Position: S RN Member Role: Primary Care Nurse Name: Sandie Kwok RN Position: S RN Member Role: Primary Care Nurse Name: Dmitri Rankin RN Position: S RN Member Role: Primary Care Nurse
--- OUTSIDE RECORDS SUMMARY | 2024-06-14 12:02 | XMS_ITS | Continuity of Care Document ---
Author Organization [facility] ter Address [address] [place] [id number] Care Team Providers Care Chief Business Officer Name Role Phone Arnulfo PRADO, Mark Primary Care Physician [phone] Encounter [facility] [place] [facility] Date(s): 08/31/23 - 09/09/[address] [id number] Encounter Diagnosis Hypothermia(Final) - 08/31/23 Upper GI bleed(Final) - 08/31/23 Discharge Disposition: A-Transfer SNF Attending Physician: Cata Conner MD Admitting Physician: Namita PRADO, Delma Jc Referring Physician: Not on Staff, Referring MD Allergies, Adverse Reactions, Alerts No Known Allergies Immunizations Given and Recorded Vaccine Date Status Refusal Reason influenza virus vaccine, inactivated 08/06/21 Perez rded influenza virus vaccine, inactivated 08/09/18 Perez rded SARS-CoV-2 (COVID-19) Ad26 vaccine 06/21/21 Record ed SARS-CoV-2 (COVID-19) Ad26 vaccine 06/21/21 Record ed Medications Acephen 650 mg rectal suppository 1 supp = 650 mg, Rectally, Every 8 hours, PRN pain/fever >101F, Maintenance, 05/28/23 19:35:00 EDT, Suppository, Partial fill upon patient request if the prescription is for a schedule II opioid drug. Start Date: 05/28/23 Status: Ordered acetaminophen 325 mg oral tablet 650 mg, 2, tablet, By Mouth, Every 8 hours, PRN, Maintenance, pain/fever >101F, 03/04/23 16:41:00 EDT, Partial fill upon patient request if the prescription is for a schedule II opioid drug. Start Date: 03/04/23 Status: Ordered amLODIPine 10 mg oral tablet 10 mg, Tablet, By Mouth, 09/09/23 9:00:00 EST Start Date: 09/09/23 Stop Date: 09/09/23 Status: Completed amLODIPine 10 mg oral tablet 10 mg, [...] drug. Start Date: 02/10/23 Status: Ordered Augmentin 875 Tablet 1, tablet, By Mouth, 2 times a day, Maintenance, Last dose to be on 12/8 in AM, 09/08/23 12:54:00 EST Start Date: 09/08/23 Status: Ordered benztropine 1 mg oral tablet [...] Active Type 2 diabetes mellitus Confirmed Active Results Orders for Microbiology Reports Name Date Blood Culture #2 09/04/23 Blood Culture 09/03/23 Blood Culture 08/31/23 Blood Culture #2 08/31/23 Microbiology Reports TEST:Blood Culture, Second Order STATUS:Auth (Verified) BODY SITE: SOURCE:Blood COLLECTED DATE/TIME:09/04/23 1:21 AM Blood Culture, Second Order SPECIMEN DESCRIPTION : BLOOD NO SITE SPECIAL REQUESTS : NONE CULTURE : NO GROWTH 5 DAYS. REPORT STATUS : FINAL 09/09/2023 TEST:Blood Culture STATUS:Auth (Verified) BODY SITE: SOURCE:Blood COLLECTED DATE/TIME:09/03/23 10:34 PM Blood Culture SPECIMEN DESCRIPTION : BLOOD R SPECIAL REQUESTS : NONE CULTURE : NO GROWTH 5 DAYS. REPORT STATUS : FINAL 09/09/2023 TEST:Blood Culture STATUS:Auth (Verified) BODY SITE: SOURCE:Blood COLLECTED DATE/TIME:08/31/23 8:41 PM Blood Culture SPECIMEN DESCRIPTION : BLOOD RA SPECIAL REQUESTS : NONE CULTURE : NO GROWTH 5 DAYS. REPORT STATUS : FINAL 09/05/2023 TEST:Blood Culture, Second Order STATUS:Auth (Verified) BODY SITE: SOURCE:Blood COLLECTED DATE/TIME:08/31/23 8:41 PM Blood Culture, Second Order SPECIMEN DESCRIPTION : BLOOD L H SPECIAL REQUESTS : NONE CULTURE : NO GROWTH 5 DAYS. REPORT STATUS : FINAL 09/05/2023 Radiology Reports * Exam Date Time Procedure Performing Provider Status 09/03/23 10:59 PM Chest Portable Sea Steven; Auth (Verified) Notes: (Chest Portable) Reason For Exam: Fever RESULT: Chest Portable Chest Portable Reason: Fever; Clinical Question(s): Pneumonia COMPARISON: 08/31/2023 FINDINGS: LINES AND TUBES: None. LUNGS AND PLEURA: Worsening multifocal consolidation throughout the left lung compatible with pneumonia. The right lung is clear. Questionable small left effusion. No right effusion. No pneumothorax. HEART, MEDIASTINUM AND IGNACIO: Mild prominence of the cardiac silhouette, unchanged. Normal mediastinal and hilar contour. BONES AND SOFT TISSUES: No acute abnormality. IMPRESSION: Developing consolidation in the left lung compatible with pneumonia. WSN: [id number] Ordering Physician: Sarah Lang Dictated By: Fermin Shaikh MD Dictated Date/Time: 09/03/23 11:16 p Reviewed By: Fermin Shaikh MD Signed By: Fermin Shaikh MD Signed Date/Time: 09/03/23 11:16 pm Transcribed By: CHERELLE Transcribed Date/Time: 09/03/23 11:15 pm * Exam Date Time Procedure Performing Provider Status 08/31/23 8:[address] Abdomen and Pelvi s W/O Contrast Stefani Ha; Auth (Verified) Notes: (CT Abdomen and Pelvis W/O Contrast) Reason For Exam: Sepsis;Other: RESULT: CT Abdomen and Pelvis W/O Contrast CT Abdomen and Pelvis W/O Contrast Reason: Other:; Sepsis; Clinical Question(s): Other:; r o colitis(stool), hydronephrosis; Special Instructions: CAN BE DONE ON THE WAY TO THE FLOOR; Order Comment: TECHNIQUE: Spiral CT through the abdomen and pelvis without IV contrast formatted in 3 planes. Thisstudy was performed without oral contrast. Weight- based protocol using automatic tube modulation was used to optimize exposure parameters. CTDIvol Body: 18.57 mGy, DLP Body: 1101 mGy*cm. COMPARISON: 05/28/2023 FINDINGS: Tag Press Operator View Findings, Lines and Tubes: None. Visualized Chest: Areas of groundglass opacity with septal thickening. Trace right pleural effusion. Small hiatal hernia. The heart is normal in size. No pericardial effusion. Diaphragm: Normal. Liver: Normal. Gallbladder: No CT evidence of gallbladder pathology. Bile ducts: No biliary ductal dilation. Spleen: Normal. Pancreas: Normal. Adrenal glands: Normal. Kidneys and ureters: No hydronephrosis, or noncontrast evidence of suspicious masses. Multiple cysts within the right kidney. 3 mm nonobstructing stone within the midpole of the right kidney. Bladder: There is mild bladder wall thickening likely due to under distention. Reproductive organs: Unremarkable. Stomach, small bowel, and large bowel: There is moderate amount of stool throughout the colon. There are a few scattered diverticula within the descending, and sigmoid colon. Appendix: Normal. Peritoneum and retroperitoneum: No ascites or pneumoperitoneum. No omental or mesenteric lesions. Lymph nodes: No enlarged lymph nodes. Blood vessels: Normal. No aneurysm. Abdominal and pelvic wall: Unremarkable. Bones: No acute abnormality. IMPRESSION: Trace right pleural effusion. Bibasilar atelectasis. Volume overload. Few scattered diverticula within the sigmoid colon without definite evidence of diverticulitis. No evidence of colitis. WSN: [id number] Ordering Physician: Claudia Barba Dictated By: Ayan Khanna MD Dictated Date/Time: 08/31/23 8:29 pm Reviewed By: Ayan Khanna MD Signed By: Ayan Khanna MD Signed Date/Time: 08/31/23 8:29 pm Transcribed By: CHERELLE Transcribed Date/Time: 08/31/23 8:25 pm * Exam Date Time Procedure Performing Provider Status 08/31/23 10:44 AM Chest Portable Deanna Moon ; Elina (Verified) Notes: (Chest Portable) Reason For Exam: Shortness of Breath RESULT: Chest Portable AP upright portable chest dated August 20172022. Comparison films are from August 10, 2023 andJune 28, 2023. HISTORY: Shortness of breath. FINDINGS: Today's study is mildly limited as the patient's chin is obscuring the apices. The cardiac silhouette is at the upper limits of normal for size and unchanged. Mural calcifications are present in the aorta. No airspace infiltrate or pleural effusion is identified. Degenerative changes are noted in the spine. IMPRESSION: No evidence of acute pulmonary disease. Examination 58[address]. Thank you for allowing me to participate in the care of this patient. WSN: [id number] Ordering Physician: Michael Hanson Dictated By: Canelo Guzman MD Dictated Date/Time: 08/31/23 10:47 a Reviewed By: Canelo Guzman MD Signed By: Canelo Guzman MD Signed Date/Time: 08/31/23 10:47 am Transcribed By: CHERELLE Transcribed Date/Time: 08/31/23 10:47 am Vital Signs Most recent to oldest [Reference Range]: 1 2 3 Weight 94.7 kg (09/08/23 12:07 PM) 96 kg (09/08/23 6:00 AM) 96.3 kg (09/07/23 5:07 PM) Oxygen Saturation [94-100 %] 93 % *L* (09/09/23 12: PM) 99 % (09/09/23 8:00 AM) 95 % (09/08/23 8:48 PM) Pulse Rate [55-90 bpm] 57 bpm (09/09/23 12:33 PM) 58 bpm (09/09/23 8:00 AM) 57 bpm (09/08/23 8:48 PM) Blood Pressure [90-138/55-84 mm Hg] 130/56mm Hg (09/09/23 12:33 PM) 146/55mm Hg *H* (09/09/23 10:26 AM) 146/55mm Hg *H* (09/09/23 8:00 AM) Respiratory Rate [16-30 br/min] 18 br/min (09/09/23 12:33 PM) 18 br/min (09/09/23 8:00 AM) 16 br/min (09/08/23 8:48 PM) Temperature [96.8-100.4 DegF] 98.1 DegF (09/09/23 12:33 PM) 97.6 DegF (09/09/23 8:00 AM) 99.2 DegF (09/08/23 8:48 PM) Liters per Minute 18 L/min (09/09/23 8:00 AM) 2 L/min (09/05/23 2:00 AM) 3 L/min (09/05/23 12:00 AM) Mode of Delivery (Oxygen) Room air (09/09/23 12:33 PM) Room air (09/09/23 8:00 AM) Room air (09/08/23 8:48 PM) Blood pressure sites Arm, right (09/09/23 12:33 PM) Arm, right (09/09/23 8:00 AM) Arm, right (09/08/23 8:48 PM) Temperature Route Oral (09/09/23 12:33 PM) Axillary (09/09/23 8:00 AM) Axillary (09/08/23 8:48 PM) Dry Weight 92 kg (09/02/23 8:57 PM) Weight Obtained Via Bed scale (09/06/23 9:40 PM) Bed scale (09/02/23 8:57 PM) Endoscopy study * Event Display: GG EGD Please click on pdf link to open report * Jude Gusman MD: PERFORM Event Display: GG EGD Authored Date: 1. Stomach, biopsies: - Gastric antral mucosa with mild reactive gastropathy. - Gastric oxyntic mucosa with no significant diagnostic alterations. - No morphologic evidence of Helicobacter pylori micro-organisms. - Separate fragments of intestinalized cardiofundic mucosa with chronic inflammation (see note). Note: If these fragments are sampled from the stomach, findings would favor chronic gastritis with intestinal metaplasia. However, if carryover from the esophagus, they are consistent with Morrow's esophagus. Endoscopic correlation would be helpful. 2. Esophagus, biopsy: - Morrow's esophagus, negative for dysplasia. Repeat EGD in 12 weeks. PPI BID in the meanwhile. Jude Gusman MD History and physical note * Claudia Barba MD: MODIFY, PERFORM Event Display: History and Physical Hospital Authored Date: Patient: ??ARGENTINA PIPER ? Age:??73 Years?Sex:??Male?:??1950?? Chief Complaint/Reason for Consultation Coffee ground emesis History of Present Illness The pt is a 73??yo M??with past medical history significant for cognitive impairment, therefore??information obtained from??medical record. He is transferred from [place] when EMS called for c/o N/V and coffee ground emesis, large??amounts recorded but not quantified in the paperwork sent over.??He also has??h/o??CVA with L hemiplegia, Dysphagia on altered diet, A-fib on Eliquis, seizure disorder on Keppra, Urinary retention due to BPH with h/o UTIs, GERD??with h/o Esophagitis w/o bleeding, chronic disease anemia with Hgb in 7s, hypothyroidism, DM, HLP, HTN, PVD, COPD not on o2 or bronchodilators per paperwork, CAD??with last ECHO in our record dated 08/27 55%-60%, CKD IV, Depression/schizophrenia, chronic constipation with fecal incontinence,??OA not on asa or NSAIDs, Xerosis cutis. He is??presenting to the emergency department with??coffee-ground emesis at facility.?? Staff there??found a container with coffee-ground emesis from earlier in the morning.?? He did c/o abdominal pain that hedescribed it as burning sensation.?? Patient's facility believed??he has been in his normal state of health prior to this. His initial??vitals there was 130/81, 109 HR, RR 18, 98% on RA and temp of 97.9. His temp here upon arrival was 92.4 and started on warming blanket. He was found to have K of 5.5 and given Kayexalate 30 gm at 1400, Hgb was 9.1 with baseline at 7s, Bun was up to 56 with baseline 30s, creat was 2.8 with a baseline between 2.5-3, Alk??Phos of 240 otherwise normal LFTs. He was given CTX in case for another UTI leading to sepsis. He was given 20 mg IV Famotidine, 40 mg iv Pantoprazole and 1L NS for possible UGIB. He awakens to verbal stimuli but he does not provide information nor joins the examination.?? Review of Systems Comprehensive review limited due to above Objective Vital Signs?? Temperature: 97.5 DegF (08/31/23 17:50:00) Temperature Route: Axillary (08/31/23 17:50:00) Pulse Rate: 75 bpm (08/31/23 17:50:00) Respiratory Rate:??14 br/min??Low (08/31/23 17:50:00) Systolic Blood Pressure:??159 mm Hg??High (08/31/23 17:50:00) Diastolic Blood Pressure:??85 mm Hg??High (08/31/23 17:50:00) Blood pressure sites: Arm, left (08/31/23 17:50:00) Mean Arterial Pressure: 101 mm Hg (08/31/23 16:42:00) Pulse Pressure: 74 mm Hg (08/31/23 17:50:00) Oxygen Saturation: 96 % (08/31/23 17:50:00) Liters per Minute: 2 L/min (08/31/23 12:09:00) Mode of Delivery (Oxygen): Room air (08/31/23 17:50:00) Early Warning Score: 2 (08/31/23 17:56:39) ?? Pain Scores 1 - 10 Pain Scale Score: 4 (10:03) ?? Intake/Output? 08/31 15:25 08/31 07:00 08/30 07:00 08/29 07:00 08/28 07:00 ?? 08/31 18:09 08/31 18:09 08/31 06:59 08/30 06:59 08/29 06:59 Intake ?100 ?100 ?0 ?0 ?0 Output ?0 ?0 ?0 ?0 ?0 Net Total ?100 ?100 ?0 ?0 ?0 ?? Sunil Coma Scale Sunil Coma Score: 15 (08/31/23 10:03:00) Motor Response-Adult: Obeys commands (08/31/23 10:03:00) Response Eye Opening: Spontaneously (08/31/23 10:03:00) Verbal Response-Adult: Oriented and converses (08/31/23 10:03:00) ? Physical Exam Constitutional: Awakens Mental Status: Oriented to self Head: Normocephalic. Eyes: Pupils are equal, round and reactive to light. Extraocular muscles intact. Pt??is tracking Ear, Nose and Throat: Oropharynx clear, mucous membranes moist. Trachea midline. Neck: Supple, Full range of motion. Respiratory: Rhonchus??with??fair effort Cardiovascular: S1 S2 regular. No murmurs, rubs or gallops. Gastrointestinal: Abdomen soft, pt wakes up further and displays some discomfort with deep palpation but negative rigidity or rebound tenderness. Normal bowel sounds. No pulsatile mass. No hepatosplenomegaly. Neurologic: Limited. Pt is not participating. Likely??due to??sleeping Musculoskeletal: No cyanosis or clubbing. No gross deformities.?? Psychiatric: Depressed looking ?? CXR: NAD ?? EKG: NSR, no acute STT changes ?? ECHO 08/27 ??Summary ??1) The LV systolic function is normal. The left ventricular ejection ??fraction is 55-60%. There are no definite regional wall motion abnormalities ??2) The left ventricular wall thickness is moderately increased. ??3) The right ventricle is mildly dilated. Right ventricular systolic ??function appears preserved. ??4) The left atrium is severely dilated. ??5) The mitral valve appears mildly thickened. There is trace mitral ??regurgitation. ?? Assessment/Plan ?? Sepsis ??(A41.9) Hypothermia ??(T68.XXXA) h/o Urinary retention, UTI, BPH Plan -Admit to intercare -Cont CTX 1 gm daily -Add Flagyl 500 mg iv tid -Follow UA and Cx -Get stat blood cx -Add lactate, Procalcitonin, monitor labs -Get CT A/P w/o contrast to r/o stool burden possible colitis (may be limited due to noncontrast), hydronephrosis -May get Renal USG -Bladder scan and cath/Coker, monitor for hematuria(if so CBI) -Warming blanket until temp>98.5 -Cont Tamsulosin and Finasteride -Cont bowel regimen -Symptomatic treatment ?? Upper GI bleed ??(K92.2) h/o GERD, Esophagitis w/o bleed h/o Chronic disease anemia Plan -Change home PPI to 40 mg iv bid -Holding oral Carafate -Cont folate, thiamine iv -NPO except meds -Slow IVF w??attention to the pulmonary status. Hemoconcentrated. 1L given in ED -Monitor CBC -Transfuse??if HGB<7 -GI consult is entered ?? DM HLP Plan -POC/SSI q6h -Hypoglycemia measures -Cont statin if can take orally ?? CVA Dysphagia Dysarthria Intellectual Disability Seizure disorder Schizophrenia Plan -Swallow eval in am -Aspiration precautions -Keppra 250 mg iv bid -PRN Ativan for Sz activity -Zyprexa prn -Cont Risperidone 2 mg bid -Cont Benztropine 1 mg bid ?? h/o CAD with??normal EF Afib PVD HTN Plan -Holding Eliquis -Cont Imdur -Cont amlodipine -Monitor BP trend -PRN IV Hydralazine for elevated BP -Tele -Cycle trop, CK ?? Hypothyroidism Plan -Cont oral replacement -TFTs in am ?? COPD Plan -Bronchodilators prn ?? Quality Measures Dvt, high risk, active bleed, hold chemical, SCDs if pt can tolerate NPO Full code per record Histories Allergies Allergies ?(Active and Proposed Allergies Only) NKA? (Severity: Unknown severity, Onset: Unknown) ?? Past Medical History/Problem List Active Problems??(10) Atrial fibrillation CHF (congestive heart failure) Coronary artery disease Dementia Dysphagia History of CVA with residual deficit Hypertension Schizophrenia Stage III chronic kidney disease Type 2 diabetes mellitus ?? Past Surgical History No surgery history documented. ?? Social History Lives at [place] ?? Family History No family history recorded. ?? Travel History Travel Outside [place]: No Medications Home Medications Acetaminophen (acetaminophen 325 mg oral tablet)?650?Milligram?2?tablet?By Mouth?Every 8 hours?as needed?pain/fever >101F Acetaminophen (Acephen 650 mg rectal suppository)?1?suppository(ies)?650?Milligram?Rectally?Every 8 hours?as needed?pain/fever >101F Acetaminophen (acetaminophen 325 mg oral tablet)?650?Milligram?By Mouth?Every 4 hours?as needed?Temperature Greater than 100.5?Pain , Mild Amlodipine (amLODIPine 10 mg oral tablet)?10?Milligram?1?tablet?By Mouth?Daily Amlodipine (amLODIPine 10 mg oral tablet)?10?Milligram?1?tablet?By Mouth?Daily Chuckie apixaban (Eliquis 5 mg oral tablet)?1?tab(s)?5?Milligram?By Mouth?2 times a day apixaban?5?Milligram?By Mouth?2 times a day Atorvastatin (atorvastatin 20 mg oral tablet)?1?tab(s)?20?Milligram?By Mouth?Daily at bedtime Atorvastatin (Lipitor 20 mg oral tablet)?20?Milligram?By Mouth?Daily at bedtime Benztropine (benztropine 1 mg oral tablet)?1?Milligram?1?tablet?By Mouth?2 times a day Benztropine (benztropine 1 mg oral tablet)?1?Milligram?By Mouth?2 times a day Bisacodyl (bisacodyl 10 mg rectal suppository)?1?suppository(ies)?10?Milligram?Rectally?Every 72 hours?as needed?if no BM in 3 days?if MOMis ineffective Cholecalciferol (Vitamin D3 2000 intl units oral capsule)?1?capsule?50?Microgram?By Mouth?Daily in AM Cholecalciferol (cholecalciferol 2000 intl units oral tablet)?1?tab(s)?50?Microgram?By Mouth?Daily in AM Docusate (docusate sodium 100 mg oral capsule)?200?Milligram?2?capsule?By Mouth?Daily in AM Docusate (Docusate Sodium Capsule)?100?Milligram?1?capsule?By Mouth?2 times a day Durable Medical Equipment (Skin Prep Pads)?Topically?3 times a day?Bilat. heals & ankles Finasteride (finasteride 5 mg oral tablet)?1?tab(s)?5?Milligram?By Mouth?Daily Chuckie Finasteride (finasteride 5 mg oral tablet)?1?tab(s)?5?Milligram?By Mouth?Daily Chuckie Folic Acid (folic acid 1 mg oral tablet)?1?Milligram?1?tablet?By Mouth?Daily in AM Folic Acid (folic acid 1 mg oral tablet)?1?Milligram?1?tablet?By Mouth?Daily in AM Glucagon (Glucagon Emergency Kit for Low Blood Sugar 1 mg injection)?1?Milligram?Intramuscular?Once?as needed?low blood sugar ??<60 or >300 Glucagon (Gvoke HypoPen 1 mg/0.2 mL subcutaneous solution)?1?Milligram?Subcutaneous Injection?Once?as needed?Hypoglycemia Glucose (glucose 40% oral gel)?15?gram?By Mouth?Once?as needed?low blood sugar <60 Glucose (Insta-Glucose 24 g/31 g oral gel)?See Instructions?gel BS <60 with S/S (if resident is able to take by mouth) give glucose 1 tube by mouth - recheck & retreat every 15min until greater than 100 BS Haloperidol (haloperidol 5 mg oral tablet)?5?Milligram?1?tablet?By Mouth?Daily Chuckie Haloperidol (haloperidol decanoate 50 mg/ml injectable solution)?0.5?Milliliter?25?Milligram?Intramuscular?Every 28 days?STARTED 06/02/23 Insulin Lispro (insulin lispro 100 units/mL injectable solution)?2-10 units?Subcutaneous Injection?Every 4 hours Insulin NPH (insulin isophane human recombinant 100 u/ml subcutaneous injection)?10?unit(s)?Subcutaneous Injection?2 times a day Insulin Regular Human (Humulin R human recombinant 100 u/ml injectable injection)?2-10 units?Subcutaneous Injection?3 times a day before meals?150-200 = 2 -920 = 4 [id number] = 6 [id number] = 8 [id number] = 10 unitsIF >400 CALL MD Isosorbide Mononitrate (isosorbide mononitrate 30 mg oral tablet, extended release)?30?Milligram?1?tablet?By Mouth?Daily in AM Isosorbide Mononitrate (Imdur 30 mg oral tablet, extended release)?30?Milligram?By Mouth?Daily levETIRAcetam (Keppra 250 mg oral tablet)?1?tab(s)?250?Milligram?By Mouth?2 timesa day Levothyroxine (Synthroid 0.1 mg oral tablet)?100?Microgram?By Mouth?Daily Milk of Magnesia (MOM Liquid)?30?Milliliter?By Mouth?Every 72 hours?as needed?if no BM in 3 days Multivitamin (Daily Seema oral tablet)?1?tab(s)?By Mouth?Daily in AM Multivitamin?1?tab(s)?By Mouth?Daily in AM Olanzapine (olanzapine 5 mg oral tablet)?5?Milligram?1?tablet?By Mouth?Daily at bedtime Olanzapine (olanzapine 5 mg oral tablet)?5?Milligram?By Mouth?Daily at bedtime Pantoprazole (pantoprazole 40 mg oral delayed release tablet)?1?tab(s)?40?Milligram?By Mouth?Daily?NOT ON PAPER CHART Polyethylene Glycol 3350 (MiraLax oral powder for reconstitution)?17?gram?By Mouth?Daily?as needed?Constipation?dissolve in water before taking Polyethylene Glycol 3350 (MiraLax oral powder for reconstitution)?17?gram?By Mouth?Daily?dissolve in water before taking Risperidone (risperiDONE 3 mg oral tablet)?3?Milligram?1?tablet?By Mouth?Daily atbedtime Risperidone (risperiDONE 2 mg oral tablet)?2?Milligram?1?tablet?By Mouth?Daily Chuckie Risperidone (risperiDONE 1 mg oral tablet)?3?Milligram?By Mouth?Daily at bedtime Risperidone (risperiDONE 1 mg oral tablet)?2?Milligram?By Mouth?Daily in AM Senna (Senna 8.6 mg oral tablet)?17.2?Milligram?2?tab(s)?By Mouth?Daily?as needed?as needed for constipation Senna (Senna 8.6 mg oral tablet)?17.2?Milligram?2?tab(s)?By Mouth?Daily?as needed?for constipation Sodium Biphosphate-Sodium Phosphate (Fleet Enema 19 gm-7 gm rectal enema)?1?Each?Rectally?Every 72 hours?as needed?if no BM in 3 days?if suppository is ineffective Sucralfate (Carafate 1 gm oral tablet)?1?gram?1?tablet?By Mouth?3 times a day?6 AM, 12 PM & 5 PMNOT ON PAPER CHART Sucralfate (Carafate 1 gm oral tablet)?1?gram?1?tablet?By Mouth?3 times a day before meals Tamsulosin (tamsulosin 0.4 mg oral capsule)?0.8?Milligram?2?capsule?By Mouth?Daily at bedtime Tamsulosin (tamsulosin 0.4 mg oral capsule)?0.8?Milligram?By Mouth?Daily ?? Inpatient Medications Medications (34) Active SCHEDULED: (17) Amlodipine 10 mg Tablet (amLODIPine 10 mg oral tablet) ??10 mg, By Mouth, Daily in AM Atorvastatin 20 mg Tablet (atorvastatin 20 mg oral tablet) ??20 mg, By Mouth, Daily at bedtime Benztropine 1 mg Tablet (benztropine 1 mg oral tablet) ??1 mg, By Mouth, 2 times a day Ceftriaxone (Ceftriaxone Inj) ??1 Gm, IVPB, Every 24 hours Docusate Sodium 100 mg Capsule (docusate sodium 100 mg oral capsule) ??200 mg 2 capsule, By Mouth, Daily in AM Finasteride 5 mg Tablet (finasteride 5 mg oral tablet) ??5 mg, By Mouth, Daily in AM Folic Acid 1 mg Tablet (folic acid 1 mg oral tablet) ??1 mg, By Mouth, Daily in AM Insulin Lispro 100 units/mL Inj (3mL) (Insulin LISPRO Sliding Scale) ??2-10 units, Subcutaneous Injection, Every 6 hours Isosorbide Mononitrate 30 mg ER Tablet (Imdur 30 mg oral tablet, extended release) ??30 mg, By Mouth, Daily Levetiracetam 100mg/ml IVPB (Keppra Inj) ??250 mg, IV Push Slowly, Every 12 hours Levothyroxine 100 mcg Tablet (Synthroid 0.1 mg oral tablet) ??100 mcg, By Mouth, Daily Metronidazole 500 mg / NaCL 0.9% 100 mL (Flagyl IVPB) ??500 mg 100 mL, IVPB, Every 8 hours Multivitamin Tablet ??1 tablet, By Mouth, Daily NaCl 0.9% Flush 3ml (NaCL 0.9% Flush) ??3 mL, IV Push, Every 8 hours Pantoprazole 40 mg Inj (Pantoprazole Inj) ??40 mg, IV Push Slowly, Every 12 hours Risperidone 1 mg Tablet (risperiDONE 1 mg oral tablet) ??2 mg, By Mouth, 2 times a day Tamsulosin 0.4 mg Capsule (tamsulosin 0.4 mg oral capsule) ??0.8 mg, By Mouth, Daily at bedtime CONTINUOUS: (0) PRN: (17) Acetaminophen 325 mg Suppository (Tylenol Supp) ??975 mg, Rectally, Every 6 hours Acetaminophen 325 mg Tablet (Acetaminophen Tablet) ??650 mg, By Mouth, Every 4 hours Bisacodyl 10 mg Suppository (Bisacodyl Supp) ??10 mg 1 supp, Rectally, Daily Dextromethorphan-Guaifenesin 20 mg-200 mg/10 mL Liqu UD (Robitussin DM Liquid) ??10 mL, By Mouth, Every 4 hours Dextrose Inj Syringe (Dextrose 50% Inj Syringe (25Gm)) ??12.5 Gm, IV Push Slowly, Every 20 minutes Dextrose Inj Syringe (Dextrose 50% Inj Syringe (25Gm)) ??25 Gm, IV Push Slowly, Every 15 minutes Docusate Sodium 100 mg Capsule (Docusate Sodium Capsule) ??100 mg 1 capsule, By Mouth, 2 times a day Glucagon 1 mg Inj (Glucagon Inj) ??1 mg, Intramuscular, Once Glucose 40% Gel (15 Gm) (Glucose Gel) ??15 Gm, By Mouth, Every 20 minutes Glucose 40% Gel (15 Gm) (Glucose Gel) ??30 Gm, By Mouth, Every 20 minutes hydrALAZINE 20 mg/mL Inj (hydrALAZINE Inj) ??5 mg 0.25 mL, IV Push Slowly, Every 4 hours Melatonin 3 mg Tablet (Melatonin Tablet) ??3 mg, By Mouth, Daily at bedtime NaCl 0.9% Flush 3ml (NaCL 0.9% Flush) ??3 mL, IV Push, Every 8 hours Olanzapine 10 mg Inj (Olanzapine Inj) ??5 mg, Intramuscular, 2 times a day Polyethylene Glycol 17 Gm Powder (MiraLax Powder) ??17 Gm 1 pack/packet, By Mouth, Daily Senna Tablet ??8.6 mg 1 tablet, By Mouth, 2 times a day Simethicone 80 mg Chewable Tablet (Simethicone Tablet) ??80 mg, Chew, 3 times a day ?? 72 Hour Antibiotic History Stopped Antibiotics Stop Date/Time Last Administered First Administered Ceftriaxone??1 Gm, 100 mL/hr, IVPB, Once 08/31/2023 14:02 08/31/2023 14:01 08/31/2023 14:01 ?? Vaccinations and Immunoprophylaxis influenza virus vaccine, inactivated: 0.5 Unknown (08/06/21 08:00:00) influenza virus vaccine, inactivated: 0.5 Unknown (08/09/18 07:00:00) SARS-CoV-2 (COVID-19) Ad26 vaccine: 0.5 Unknown (06/21/21 08:00:00) SARS-CoV-2 (COVID-19) Ad26 vaccine: 0.5 Unknown (06/21/21 08:00:00) Results Recent Labs BLOOD BANK Blood Type O Positive ()?? 08/31/2023 10:37 Antibody Screen Negative ()?? 08/31/2023 10:37 ?? BLOOD COUNT & DIFF WBC 9.6 k/mm3 ()?? 08/31/2023 11:02 RBC 3.41 m/mm3 (Low)?? 08/31/2023 11:02 Hgb 9.6 Gm/dL (Low)?? 08/31/2023 11:02 Hct 30.1 % (Low)?? 08/31/2023 11:02 MCV 88.3 femtoliters ()?? 08/31/2023 11:02 MCH 28.2 pg ()?? 08/31/2023 11:02 MCHC 31.9 g/dL (Low)?? 08/31/2023 11:02 Platelet Count 203 k/mm3 ()?? 08/31/2023 11:02 RDW-SD 55.4 femtoliters (High)?? 08/31/2023 11:02 MPV 10.6 femtoliters ()?? 08/31/2023 11:02 Nucleated RBC (Automated) 0.3 #/100 WBC'S ()?? 08/31/2023 11:02 Abs. NRBC 0.0 k/mm3 ()?? 08/31/2023 11:02 Abs. Neut 7.2 k/mm3 (High)?? 08/31/2023 11:02 Abs. Lymph 1.4 k/mm3 ()?? 08/31/2023 11:02 Abs. Upson 0.8 k/mm3 ()?? 08/31/2023 11:02 Abs. Eo 0.1 k/mm3 ()?? 08/31/2023 11:02 Abs. Baso 0.0 k/mm3 ()?? 08/31/2023 11:02 Neut % 75.7 % ()?? 08/31/2023 11:02 Lymph % 14.7 % (Low)?? 08/31/2023 11:02 Upson % 8.1 % ()?? 08/31/2023 11:02 Eos % 0.6 % ()?? 08/31/2023 11:02 Baso % 0.4 % ()?? 08/31/2023 11:02 Imm Gran 0.5 % ()?? 08/31/2023 11:02 Abs. Imm Gran 0.1 k/mm3 ()?? 08/31/2023 11:02 ?? CHEM GENERAL Sodium 143 mmol/L ()?? 08/31/2023 11:02 Potassium 5.5 mmol/L (High)?? 08/31/2023 11:02 Chloride 102 mmol/L ()?? 08/31/2023 11:02 Bicarbonate Level 29 mmol/L ()?? 08/31/2023 11:02 Anion Gap 12 ()?? 08/31/2023 11:02 Glucose Level 172 mg/dL (High)?? 08/31/2023 11:02 Glucose, POC 118 mg/dL (High)?? 08/31/2023 17:54 BUN 56 mg/dL (High)?? 08/31/2023 11:02 Creatinine-Blood 2.8 mg/dL (High)?? 08/31/2023 11:02 Estimated GFR Creatinine 22 ML/MIN/1.73 M2 ()?? 08/31/2023 11:02 Calcium 9.8 mg/dL ()?? 08/31/2023 11:02 Protein, Total 7.4 Gm/dL ()?? 08/31/2023 11:02 Albumin 3.8 Gm/dL ()?? 08/31/2023 11:02 AG Ratio 1.1 ()?? 08/31/2023 11:02 Alkaline Phosphatase 240 units/L (High)?? 08/31/2023 11:02 Lipase 42 units/L ()?? 08/31/2023 11:02 AST (SGOT) 26 units/L ()?? 08/31/2023 11:02 ALT (SGPT) 21 units/L ()?? 08/31/2023 11:02 Bilirubin, Total 0.2 mg/dL ()?? 08/31/2023 11:02 ? Abnormal Labs ?? BLOOD BANK ??Antibody Screen ??Negative () ??08/31/2023 10:37 ??Blood Type ??O Positive () ??08/31/2023 10:37 ? BLOOD COUNT & DIFF ??Abs. Imm Gran ??0.1 k/mm3 () ??08/31/2023 11:02 ??Abs. NRBC ??0.0 k/mm3 () ??08/31/2023 11:02 ??Abs. Neut ??7.2 k/mm3 (High) ??08/31/2023 11:02 ??Hct ??30.1 % (Low) ??08/31/2023 11:02 ??Hgb ??9.6 Gm/dL (Low) ??08/31/2023 11:02 ??Imm Gran ??0.5 % () ??08/31/2023 11:02 ??Lymph % ??14.7 % (Low) ??08/31/2023 11:02 ??MCHC ??31.9 g/dL (Low) ??08/31/2023 11:02 ??Nucleated RBC (Automated) ??0.3 #/100 WBC'S () ??08/31/2023 11:02 ??RBC ??3.41 m/mm3 (Low) ??08/31/2023 11:02 ??RDW-SD ??55.4 femtoliters (High) ??08/31/2023 11:02 ? CHEM GENERAL ??AG Ratio ??1.1 () ??08/31/2023 11:02 ??Alkaline Phosphatase ??240 units/L (High) ??08/31/2023 11:02 ??BUN ??56 mg/dL (High) ??08/31/2023 11:02 ??Creatinine-Blood ??2.8 mg/dL (High) ??08/31/2023 11:02 ??Estimated GFR Creatinine ??22 ML/MIN/1.73 M2 () ??08/31/2023 11:02 ??Glucose Level ??172 mg/dL (High) ??08/31/2023 11:02 ??Glucose, POC ??118 mg/dL (High) ??08/31/2023 17:54 ??Potassium ??5.5 mmol/L (High) ??08/31/2023 11:02 ? Note: Critical results are displayed in red. ? Microbiology ?? COVID-19, RSV, and Flu A/B, Rapid PCR?? Collected?? Source: Nasal Body Site: Nose Collected Dt/Tm: 08/31/2023 15:25 Last Updated Dt/Tm: 08/31/2023 15:25 ? Imaging(s) ?Chest Portable ?? 08/31/2023 10:44??by Canelo Guzman MD ? * Claudia Barba MD: PERFORM Event Display: History and Physical Hospital Authored Date: Patient is HD stable. Asked to downgrade to acute care. Done. He does not have infectious process in urine, procalcitonin is low, wbc is normal, CT A/P w/o acutefindings except some effusion and pul edema pattern. Will dc Ceftriaxone and Flagyl K came to be 5.8 from 5.4 on CKD IV. Will give 25 gr Dextrose with 5 units Reg insulin since BG is on the lower side and he is npo until swallow evaluation, Lasix 40 mg iv x 1, discontinue IVF, Lokelma 10 gm po x 1 stat. * Claudia Barba MD: PERFORM Event Display: History and Physical Hospital Authored Date: Trop is elevated at baseline level due to CKD IV. EKG study * Event Display: ECG 12-Lead Authored Date: Please click on pdf link to open report * Event Display: ECG 12-Lead Authored Date: Ventricular Rate: 42 BPM Atrial Rate: 42 BPM P-R Interval: 192 ms QRS Duration: 90 ms Q-T Interval: 486 ms QTC Calculation(Bazett): 405 ms P [place]: 48 degrees R [place]: 15 degrees T [place]: 37 degrees Marked sinus bradycardia with Premature atrial complexes Abnormal ECG When compared with ECG of 31-AUG-2023 10:45, Premature atrial complexes are now Present Confirmed by ERMELINDA FULLER MD () on 09/09/2023 10:13:52 AM [place]: ERMELINDA FULLER MD * Event Display: ECG 12-Lead Authored Date: Please click on pdf link to open report * Event Display: ECG 12-Lead Authored Date: Ventricular Rate: 60 BPM Atrial Rate: 60 BPM P-R Interval: 208 ms QRS Duration: 94 ms Q-T Interval: 452 ms QTC Calculation(Bazett): 452 ms P [place]: 37 degrees R [place]: 3 degrees T [place]: 31 degrees Normal sinus rhythm Septal infarct , age undetermined Abnormal ECG When compared with ECG of 26-JUN-2023 20:37, Premature atrial complexes are no longer Present Confirmed by ERMELINDA FULLER MD () on 09/06/2023 2:10:03 PM [place]: ERMELINDA FULLER MD Cardiology * Event Display: Cardiac Rhythm Strips Authored Date: Hospital Progress note * Dameon Tubbs RN: PERFORM, SIGN, VERIFY Event Display: Progress Note Hospital Authored Date: Patient: ARGENTINA PIPER Age: 73 years Sex: Male : 1950 Associated Diagnoses: None Author: Dameon Tubbs RN Findings Problem Related to Alteration in Neurological : Alteration in Neurological Function/new 09/09/2023 8:00 EST Alteration in Neuro status Related to Other: Dementia Goals & Outcomes, Neurological Pt will be hemodynamically stable, Pt will be Neurologically stable, Pt will become pain free with appropriate intervention, Pt will maintain intact skin integrity,Pt will remain free from injury, Pt will resume/maintain adequate cardiac output, Pt will state importance of adhering to medication regime Interventions, Neurological Assess/monitor for abnormal posturing, Assess/monitor for gaze pattern/extraocular movements, Assess/monitor neurologic status, Elevate HOB & keep head midline in sniffing position, Maintain EVD & document drainage amount/color, Maintain ICP monitor & document readings, Minimize neuro stimulation Goals/Interventions, Neurological Yes Neurological, Problem Start 09/09/2023 8:44 Reviewed plan with, Neurological Patient Patient Progression, Neurological Plan Initiation . Nursing Data Neurological Data. : Neurological Data. 09/08/2023 21:00 EST Tongue Disposition Midline Neurological Symptoms Alteration in level of consciousness, Alteration in speech quality Level of Consciousness Lethargy Orientated to person, place, time Person Hallucinations None Facial Symmetry Intact Characteristics of Speech Expressive aphasia, Slurred Strength LUE 3-Active movement against gravity Strength RUE 3-Active movement against gravity Strength LLE 2-Active movement horizontally Strength RLE 2-Active movement horizontally Sensation LUE Diminished Sensation RUE Diminished Sensation LLE Diminished Sensation RLE Diminished Movement LUE To command Movement RUE To command Movement LLE To command Movement RLE To command Gait Unable to assess Response Eye Opening Spontaneously Motor Response-Adult Obeys commands Verbal Response-Adult Disoriented and converses [place] Coma Score 14 Neuro WNL except Eyes and Movements Dysconjugate gaze: Eyes not aligned Memory Short term loss . Narrative/Incidental Shift Review: Patient alert to self, waxes and wanes; able to answer certain questions and makes needs known.Denies pain. Patient refused all evening medications. Dr. Wray made aware. Good PO intake. Bedfast for this shift. Incontinent care provided. Call cabrera with in reach and bed in low position. See further assessment and documentation. Continue with plan of care.. Discharge Information Case Management Discharge Plan : Case Management Discharge Plan Data 09/03/2023 10:43 EST Discharge Nursing Homes/Rehab Facilities formerly [facility] * Douglas Rao DO: PERFORM, MODIFY, MODIFY, MODIFY, MODIFY, MODIFY, MODIFY, MODIFY, MODIFY, MODIFY Event Display: Progress Note Hospital Authored Date: Patient: ??ARGENTINA PIPER ? Age:??73 Years?Sex:??Male?:??1950?? Subjective Overnight: Pt required Tasha hugger for approximately 3 hours with good effect. Has since been normothermic, temperature 98.9F via core bladder on morning measurement. Otherwise hemodynamically stable. Coker in place, urine output 825ccs over night, net -610ccs in last 24hr. ?? This morning patient somnolent but arousable to voice/sternal rub, but quickly falls back asleep without expressing any complaints.??Intermittently refusing vitals, labs, and medications. Review of Systems Limited due to patient's baseline cognitive impairment. Objective Measurements?? Weight: 93.1 kg (09/07/23) Dry Weight: 92 kg (09/02/23) ? Vital Signs?? Temperature: 99.2 DegF (09/07/23 09:00:00) Temperature Route: Core Bladder (09/07/23 09:00:00) Normothermic Measures: Tasha ektagger (09/07/23 04:00:00) Pulse Rate: 64 bpm (09/07/23 09:00:00) Heart Rate Monitored: 64 bpm (09/07/23 04:00:00) Respiratory Rate: 20 br/min (09/07/23 07:00:00) Systolic Blood Pressure:??141 mm Hg??High (09/07/23 09:00:00) Diastolic Blood Pressure: 67 mm Hg (09/07/23 09:00:00) Blood pressure sites: Arm, right (09/07/23 07:00:00) Mean Arterial Pressure: 81 mm Hg (09/07/23 06:06:00) Pulse Pressure: 74 mm Hg (09/07/23 09:00:00) Oxygen Saturation: 95 % (09/07/23 09:00:00) Mode of Delivery (Oxygen): Room air (09/07/23 09:00:00) Early Warning Score: 5 (09/07/23 10:01:34) ? Intake/Output? 08/31 23:47 09/07 07:00 09/06 07:00 09/05 07:00 09/04 07:00 ?? 09/07 11:46 09/07 11:46 09/07 06:59 09/06 06:59 09/05 06:59 Intake ? 3340 ?0 ?840 ? 1203.3 ?555.4 Output ? 6402 ?0 ? 1450 ? 1425 ? 1102 Net Total ?-3062 ?0 ? -610 ? -221.7 ? -546.6 ? Urine Count ?5 ?0 ?0 ?0 ?0 ? Physical Exam Constitutional: Somnolent, in NAD,??arousable to voice and sternal rub but quickly falls back asleep Mental Status: Oriented to person only. Head: Normocephalic. Ear, Nose and Throat: Mucous membranes somewhat dry. Trachea midline. Respiratory: Minimal scattered expiratory wheezes bilaterally.??No rales or rhonchi. Cardiovascular:??RRR, normal S1 S2,??No murmurs, rubs or gallops. No peripheral edema. Gastrointestinal: Abdomen soft, non-tender, non-distended. Normal bowel sounds. Neurologic:?? No focal neurological deficits.??Intermittent resting??tremor of??R??hand, resolves??while sleeping.??Moves all extremities spontaneously. Skin: No rashes or lesions. Musculoskeletal: No gross deformities. Psych: Slightly agitated upon waking, saying don't??fing touch me _ 72 Hour Antibiotic History Active Antibiotics Calendar Day Last Administered First Administered Piperacillin-Tazobactam??3.375 Gm, 25 mL/hr, IVPB, Every 12 hours ?4 09/07/2023 01:04 09/04/2023 04:33 ? Results Recent Labs BLOOD COUNT & DIFF WBC 7.8 k/mm3 ()?? 09/07/2023 01:12 RBC 2.81 m/mm3 (Low)?? 09/07/2023 01:12 Hgb 7.9 Gm/dL (Low)?? 09/07/2023 01:12 Hct 25.8 % (Low)?? 09/07/2023 01:12 MCV 91.8 femtoliters ()?? 09/07/2023 01:12 MCH 28.1 pg ()?? 09/07/2023 01:12 MCHC 30.6 g/dL (Low)?? 09/07/2023 01:12 Platelet Count 145 k/mm3 (Low)?? 09/07/2023 01:12 RDW-SD 58.9 femtoliters (High)?? 09/07/2023 01:12 MPV 11.3 femtoliters ()?? 09/07/2023 01:12 Nucleated RBC (Automated) 0.0 #/100 WBC'S ()?? 09/07/2023 01:12 Abs. NRBC 0.0 k/mm3 ()?? 09/07/2023 01:12 Abs. Neut 5.3 k/mm3 ()?? 09/06/2023 11:25 Abs. Lymph 1.8 k/mm3 ()?? 09/06/2023 11:25 Abs. Upson 0.7 k/mm3 ()?? 09/06/2023 11:25 Abs. Eo 0.2 k/mm3 ()?? 09/06/2023 11:25 Abs. Baso 0.0 k/mm3 ()?? 09/06/2023 11:25 Neut % 65.3 % ()?? 09/06/2023 11:25 Lymph % 21.8 % ()?? 09/06/2023 11:25 Upson % 9.0 % ()?? 09/06/2023 11:25 Eos % 2.6 % ()?? 09/06/2023 11:25 Baso % 0.2 % ()?? 09/06/2023 11:25 Imm Gran 1.1 % ()?? 09/06/2023 11:25 Abs. Imm Gran 0.1 k/mm3 ()?? 09/06/2023 11:25 ?? CHEM GENERAL Sodium 142 mmol/L ()?? 09/07/2023 01:12 Potassium 4.1 mmol/L ()?? 09/07/2023 01:12 Chloride 105 mmol/L ()?? 09/07/2023 01:12 Bicarbonate Level 27 mmol/L ()?? 09/07/2023 01:12 Anion Gap 10 ()?? 09/07/2023 01:12 Glucose Level 168 mg/dL (High)?? 09/07/2023 01:12 Glucose, POC 101 mg/dL (High)?? 09/07/2023 08:06 BUN 45 mg/dL (High)?? 09/07/2023 01:12 Creatinine-Blood 3.0 mg/dL (High)?? 09/07/2023 01:12 Estimated GFR Creatinine 21 ML/MIN/1.73 M2 ()?? 09/07/2023 01:12 Calcium 8.6 mg/dL ()?? 09/07/2023 01:12 Phosphorus 2.5 mg/dL ()?? 09/07/2023 01:12 Magnesium 1.8 mg/dL ()?? 09/07/2023 01:12 Protein, Total 6.4 Gm/dL ()?? 09/07/2023 01:12 Albumin 3.1 Gm/dL (Low)?? 09/07/2023 01:12 AG Ratio 0.9 ()?? 09/07/2023 01:12 Alkaline Phosphatase 184 units/L (High)?? 09/07/2023 01:12 AST (SGOT) 13 units/L ()?? 09/07/2023 01:12 ALT (SGPT) 11 units/L ()?? 09/07/2023 01:12 Bilirubin, Total 0.2 mg/dL ()?? 09/07/2023 01:12 ?? ENDOCRINE/TUMOR MARKER Cortisol Level 7.6 ??g/dL ()?? 09/07/2023 06:05 ? Assessment/Plan 73 y.o male with PMHx of schizophrenia, cognitive impairment, CVA, pAfib (on Eliquis), CAD, CHF, HTN, HLD, PVD, COPD, DM2, CKD IV, hypothyroidism, esophagitis, and GERD, presenting from a long-term care facility for evaluation of nausea, coffee ground emesis, and hypothermia. EGD on 09/02 with findings consistent with esophagitis for which patient is receiving PPI therapy.??Pt has been intermittently hypothermic requiring bear hugger with temporary??improvement. Etiology for hypothermia is unclear, initially thought to be due to sepsis, possibly adrenal insufficiency. Initial CXR 08/31 with no acute pulmonary process, however, repeat 09/03 showing developing consolidation throughout the L lung compatible with pneumonia. Received single dose of Vancomycin 09/04 and continues with antibioticcoverage on Zosyn (Day 4). ?? Hypothermia (T68.XXXA):?? Sepsis (A41.9):?? Acute Metabolic Encephalopathy Intermittently hypothermic requiring Tasha??hugger with good effect Etiology unclear, initially thought to be??2/2 sepsis, however, no leukocytosis, lactic??acid WNL (0.7), and procalcitonin negative (0.18) Initial CXR 08/31??with no acute abnormality,??repeat 09/03 with developing consolidation throughout the left lung compatible with??pneumonia Respiratory pathogen panel and atypical??pneumonia workup negative Received single dose??Vancomycin 09/04 and started on Zosyn (09/04-current, Day??4) Possibly??due to adrenal insufficiency, AM cortisol today low at 7.6 (@6am) Will transition Keppra to IV due to concern of patient not swallowing PO Keppra ?? Plan: - Continue??Zosyn (day 4) -??Cosyntropin stimulation test to further evaluate for adrenal insufficiency -??Closely monitor temperature and apply Tasha hugger for temperature < 96F -Keppra transition from??p.o. to IV -Swallow eval ?? Upper GI bleed (K92.2):?? GERD (K21.9): Anemia of chronic disease (D63.8) Presented??for??nausea and coffee ground emesis GI evaluated patient EGD obtained 09/02 showing normal duodenum, hiatal hernia, grade C esophagitis compatible with reflux esophagitis, which could be cause of hematemesis. EGD??biopsies??showing gastric antral mucosa with mild reactive gastropathy, also Morrow's esophagus?? Hgb stable today 7.9 (from 7.7) No acute signs of bleeding ?? Plan: - Continue high dose PPI BID -??Continue folate, thiamine -??Continue to monitor hemoglobin, transfuse if hgb < 7 - Out-patient repeat EGD in 8-12 weeks ?? Acute kidney injury superimposed on CKD (N17.9): Stage III chronic kidney disease (N18.30):?? History of BPH Pt??noted to be retaining??> 800ccs on??bladder scan 09/05, for which Coker was placed Renal function improving with Coker in place ?? Plan: - Continue Coker??until??off Tasha hugger for??> 24hrs consistently, then consider voiding trial - Closely monitor I/Os and renal function ?? History of CVA with residual deficit (I69.30):?? Cognitive impairment (R41.89): Dysphagia (R13.10):?? Seizure Disorder (640.909): Pt oriented to self only Intermittently refusing labs, vitals, and medications ST eval completed, recommended pureed diet with thin liquids, 1 to 1 assist/monitoring Pt intermittently refusing medications Plan to transition home PO Keppra 250mg BID??back to IV to ensure pt receives dose ?? Plan: - Discuss GOC with guardian in setting of patient intermittently refusing care (labs, vitals, meds), and potential need for physical/chemical restraints - Aspiration precautions - Transition from PO to IV Keppra 250mg BID -Swallow eval ?? Chronic??obstructive pulmonary??disease??(J44.9):?? Pt increasingly somnolent this morning but arousable to voice/sternal rub Maintaining O2 sat in low-mid 90s on RA Bicarb elevated during admission, possible respiratory acidosis in setting of known pulmonary disease ?? Plan: - Obtain??venous pH to further assess respiratory status - Continue bronchodilators as needed ?? Chronic, stable, resolved medical conditions Schizophrenia (F20.9):??Continue home meds including benztropine 1mg BID, Risperidone 2mg BID, olanzapine 5mg BID PRN Hypothyroidism (E03.9):??Continue levothyroxine Hypertension (I10):??Continue??amlodipine CHF (congestive heart failure) (I50.9), Coronary artery disease (I25.10):?? Continue Imdur, amlodipine Paroxysmal atrial fibrillation (I48.0):??Intermittently bradycardic, not on rate control agents. Restarted Eliquis (as no signs of acute bleeding and hgb stable). Type 2 Diabetes mellitus??(E11.9):??Continue ISS, POC checks, hypoglycemia measures ?? Quality measures Diet: Pureed, thin liquids, 1:1 assist/monitoring VTE Prophylaxis:??Eliquis Code Status:??Full resuscitation ?? Ongoing Medical Necessity:??Intermittently hypothermic requiring??Tasha hugger,??PELON on CKD??with Coker in place Discharge Planning:??Pending??temperature monitoring with normothermia consistently for > 24hrs ?? Unable to contact guardians in the afternoon, will consult social work as unable to reach guardians ?? Pt seen and discussed with Attending Dr. Conner ?? Note completed with assistance by Medical Student. Douglas Solares, MS4 ? Douglas Rao,??DO PGY-2 Internal Medicine Pager [phone]/ cortext?? * Ubaldo PRADO, Cata Díaz: PERFORM Event Display: Progress Note Hospital Authored Date: Attending Attestation:??This note was completed with the aid of a medical student and resident.?I personally have seen and evaluated this patient. I have discussed the case and its management withthe medical student and??resident and agree with the findings and plan as documented in note exceptwhere modified. ?? Sleepy this am but more alert in afternoon. Cosyntropin??test reassuring against primary adrenal insufficiency, suspect hypothermia related to sepsis. Will need to be??off tasha hugger > 24 h, coker removed with voiding??trial prior to dc. Will continue to??attempt to reach guardian as [place] lacks capacity and is intermittently refusing care. ?? Cata Conner MD * Trinity Machado LPN: VERIFY, PERFORM, SIGN Event Display: Progress Note Hospital Authored Date: Patient: ARGENTINA PIPER [facility]: [id number] Age: 73 years Sex: Male : 1950 Associated Diagnoses: None Author: Trinity Machado LPN Findings Problem Related to Alteration in Immunologic : Alteration in Immunologic Function/new 09/07/2023 7:00 EST Alteration Immunologic Status Related to Sepsis Goals & Outcomes, Immunologic Pt will maintain/resume normal fluid/electrolyte balance, Pt willmaintain intact skin integrity, Inflammatory/infectious process will resolve Interventions, Immunologic Monitor Intake & Output, Maintain and monitor nutritional intake, Assess skin integrity BH Goals/Interventions, Immunologic Yes Immunologic, Problem Start 09/06/2023 4:26 Reviewed Plan with, Immunologic Patient Patient Progression, Immunologic Status Pt progressing according to plan . Evaluation Patient is alert to self, Lungs dim on RA, A fib on tele, denies chest pain. incontinent of both urine and stool, coker for urine retention. Patient refused morning medication, agitated. Safety precauitons in place. . Discharge Information Case Management Discharge Plan : Case Management Discharge Plan Data 09/03/2023 10:43 EST Discharge Nursing Homes/Rehab Facilities formerly [facility] Note * Shannen Frazier RN: PERFORM Event Display: Discharge/Transfer Note Hospital Authored Date: [id number] Nursing Discharge Note Entered On: 09/09/2023 13:58 EST Performed On: 09/09/2023 13:57 EST by Shannen Frazier RN Nursing Discharge Note 2 Discharge Time : 09/09/2023 14:30 EST Shannen Frazier RN - 09/09/2023 14:30 EST Discharge Level of Care at Discharge : [facility] facility Discharge Nursing Homes/Rehab Facilities : [facility] [phone] Patient Left Unit Via : Ambulance Patient Accompanied Off Unit with : Ambulance/Chair Van Personnel Handover Given to Transport Personnel : Yes DC Instructions Provided & Signed by Pt : Yes Patient Understands D/C Instructions : Yes Verbalized Understanding of D/C Plan By : Patient Patient Instructions Discharge Signed : Yes Did Pt have Specialty Bed or Wound Vac : No Shannen Frazier RN - 09/09/2023 13:57 EST * Douglas Rao DO: PERFORM, MODIFY, MODIFY, MODIFY, MODIFY, MODIFY, MODIFY, MODIFY, MODIFY, MODIFY, MODIFY, MODIFY, MODIFY, MODIFY, MODIFY, MODIFY, MODIFY, MODIFY, MODIFY, MODIFY, MODIFY, MODIFY, MODIFY, MODIFY, MODIFY, MODIFY, MODIFY Ubaldo PRADO, Cata Díaz: MODIFY Event Display: Discharge/Transfer Note Hospital Authored Date: Patient: ??ARGENTINA PIPER ? Age:??73 Years?Sex:??Male?:??1950?? Patient Information Discharge Location: B Primary Care Physician: Mark Arredondo MD Admit Date/Time: 08/31/23 23:47 Discharge Disposition Discharge Disposition: [facility] Facility[facility]Rehab Discharge Diagnosis Hypothermia (T68.XXXA) Sepsis (A41.9) Acute metabolic encephalopathy (G93.41) Upper GI bleed (K92.2) GERD (gastroesophageal reflux disease) (K21.9) Anemia of chronic disease (D63.8) Acute kidney injury superimposed on CKD (N17.9) Stage III chronic kidney disease (N18.30) History of CVA with residual deficit (I69.30) Cognitive impairment (R41.89) Dysphagia (R13.10) Seizure disorder (G40.909) Schizophrenia (F20.9) Type 2 diabetes mellitus (E11.9) Hypertension (I10) Atrial fibrillation (I48.91) Coronary artery disease (I25.10) CHF (congestive heart failure) (I50.9) Hypothyroidism (E03.9) Chronic obstructive pulmonary disease (J44.9) ?? _ Discharge Medications Acetaminophen (acetaminophen 325 mg oral tablet)?650?Milligram?2?tablet?By Mouth?Every 8 hours?as needed?pain/fever >101F Acetaminophen (Acephen 650 mg rectal suppository)?1?suppository(ies)?650?Milligram?Rectally?Every 8 hours?as needed?pain/fever >101F Amlodipine (amLODIPine 10 mg oral tablet)?10?Milligram?1?tablet?By Mouth?Daily Chuckie Amoxicillin-Clavulanate (Augmentin 875 Tablet)?1?tablet?By Mouth?2 times a day?Last dose to be on 09/11 in AM apixaban (Eliquis 5 mg oral tablet)?1?tab(s)?5?Milligram?By Mouth?2 times a day Atorvastatin (atorvastatin 20 mg oral tablet)?1?tab(s)?20?Milligram?By Mouth?Daily at bedtime Benztropine (benztropine 1 mg oral tablet)?1?Milligram?By Mouth?2 times a day Bisacodyl (bisacodyl 10 mg rectal suppository)?1?suppository(ies)?10?Milligram?Rectally?Every 72 hours?as needed?if no BM in 3 days?if MOMis ineffective Cholecalciferol (cholecalciferol 2000 intl units oral tablet)?1?tab(s)?50?Microgram?By Mouth?Daily in AM Docusate (docusate sodium 100 mg oral capsule)?200?Milligram?2?capsule?By Mouth?Daily in AM Emollients, Topical (Minerin topical cream)?Topically?Daily at bedtime?to bilateral feet Finasteride (finasteride 5 mg oral tablet)?1?tab(s)?5?Milligram?By Mouth?Daily Chuckie Folic Acid (folic acid 1 mg oral tablet)?1?Milligram?1?tablet?By Mouth?Daily in AM Glucagon (Glucagon Emergency Kit for Low Blood Sugar 1 mg injection)?1?Milligram?Intramuscular?Once?as needed?low blood sugar ??<60 or >300 Glucagon (Gvoke HypoPen 1 mg/0.2 mL subcutaneous solution)?1?Milligram?Subcutaneous Injection?Once?as needed?Hypoglycemia Glucose (glucose 40% oral gel)?15?gram?By Mouth?Once?as needed?low blood sugar <60 Glucose (Insta-Glucose 24 g/31 g oral gel)?See Instructions?gel BS <60 with S/S (if resident is able to take by mouth) give glucose 1 tube by mouth - recheck & retreat every 15min until greater than 100 BS Haloperidol (haloperidol decanoate 50 mg/ml injectable solution)?0.5?Milliliter?25?Milligram?Intramuscular?Every 28 days?STARTED 06/02/23 Insulin Lispro (insulin lispro 100 units/mL injectable solution)?2-10 units?Subcutaneous Injection?3 times a day with meals Isosorbide Mononitrate (Imdur 30 mg oral tablet, extended release)?30?Milligram?By Mouth?Daily Lactulose (lactulose 10 gm/15 ml oral syrup)?30?Milliliter?20?gram?By Mouth?Daily levETIRAcetam (levETIRAcetam 100 mg/mL oral solution)?2.5?Milliliter?250?Milligram?By Mouth?2 times a day Levothyroxine (Synthroid 0.1 mg oral tablet)?100?Microgram?By Mouth?Daily Milk of Magnesia (MOM Liquid)?30?Milliliter?By Mouth?Every 72 hours?as needed?if no BM in 3 days Multivitamin (Daily Seema oral tablet)?1?tab(s)?By Mouth?Daily in AM Olanzapine (olanzapine 5 mg oral tablet)?5?Milligram?By Mouth?Daily at bedtime Pantoprazole (pantoprazole 40 mg oral delayed release tablet)?40?Milligram?By Mouth?2 times a day?continue until endoscopy obtained Risperidone (risperiDONE 2 mg oral tablet)?2?Milligram?1?tablet?By Mouth?2 times a day Senna (Senna 8.6 mg oral tablet)?17.2?Milligram?2?tab(s)?By Mouth?Daily?as needed?for constipation Sodium Biphosphate-Sodium Phosphate (Fleet Enema 19 gm-7 gm rectal enema)?1?Each?Rectally?Every 72 hours?as needed?if no BM in 3 days?if suppository is ineffective Sucralfate (Carafate 1 gm oral tablet)?1?gram?1?tablet?By Mouth?3 times a day?6 AM, 12 PM & 5 PMNOT ON PAPER CHART Tamsulosin (tamsulosin 0.4 mg oral capsule)?0.8?Milligram?2?capsule?By Mouth?Daily at bedtime Thiamine (thiamine 100 mg oral tablet)?100?Milligram?By Mouth?Daily ? Medications Started Pantoprazole (pantoprazole 40 mg oral delayed release tablet)?40?Milligram?By Mouth?2 times a day?continue until endoscopy obtained Amoxicillin-Clavulanate (Augmentin 875 Tablet)?1?tablet?By Mouth?2 times a day?Last dose to be on 09/11 in AM Thiamine (thiamine 100 mg oral tablet)?100?Milligram?By Mouth?Daily Medications Discontinued none Doses Changed none Allergies Allergies ?(Active and Proposed Allergies Only) NKA? (Severity: Unknown severity, Onset: Unknown) ? PCP Follow-Up/Heads-Up Patient was evaluated for UGIB and hypothermia. GI consulted and patient underwent EGD showing reflux??esophagitis. Hemoglobin has remained stable without need for blood transfusions. High dose PPI started BID and plan for repeat EGD in 8-12 weeks with GI. Hypothermia resolved and primary??adrenal i nsufficiency ruled out. CXR showing pneumonia, for which pt to complete 7-day course of antibiotics. Also had PELON complicated by obstructive uropathy for which Coker was placed. Renal function improving, failed voiding trial prior to discharge (required straight cath x 1 then did void but had 250 cc postvoid residual and unable to void again), will need urology followup. ?? - Antibiotics transitioned??to PO Augmentin 875mg BID for 2 days (to complete total of??7-day antibiotic course) Last dose will be 09/11 in the AM - Repeat CBC, BMP??in one week - Continue high dose PPI, Pantoprazole 40mg BID until follow-up with??GI for??repeat EGD in 8-12 weeks - coker placed before discharge, will need urology follow up, urology has been notified -- Urology follow up with [facility] [phone] - Continue finasteride and tamsulosin - Continue diet with dysphagia mechanically altered level 2/thin liquids, hold PO if lethargic or AMS - Pt does not have capacity to refuse meds, he was intermittently refusing medications during this admission, Discussed with Guardian over the phone if patient refuses meds then please redirect and??administer the medications. Hospital Course 73 y.o male with PMHx of schizophrenia, cognitive impairment, CVA, pAfib (on Eliquis), CAD, CHF, HTN, HLD, PVD, COPD, DM2, CKD IV, hypothyroidism, esophagitis, and GERD, who presented to the hospitalon the morning of 08/31 [place] [facility] [place] [facility] for concern of nausea with large volume coffee-ground emesis. Found to be hypothermic to 92.4F on arrival for which he was placed on Tasha hugger with good effect, otherwise hemodynamically stable. Admitted for concern of UGIBand possible sepsis with hypothermia of unclear etiology. In the ED he received doses of Ceftriaxone and Flagyl with infectious workup pending. Initial labs showing no leukocytosis, lactic acid WNL (0.7). Initial CXR with no acute abnormality. GI was consulted and he underwent EDG 09/02 showing normal duodenum, hiatal hernia, grade C esophagitis compatible with reflux esophagitis, and EGD biopsies showing gastric antral mucosa with mild reactive gastropathy, also Morrow's esophagus. His hemoglobin remained stable throughout admission without requiring any blood transfusions and he was started on IV pantoprazole 40mg BID with plan to follow-up with GI for repeat EGD in the out-patient setting in 8-12 weeks. ?? Throughout admission he continued to be intermittently hypothermic requiring Tasha hugger with infectious workup ongoing. Procalcitonin negative (0.18), no leukocytosis, and repeat CXR 09/03 with developing consolidation throughout the left lung compatible with pneumonia. Respiratory pathogen panel and atypical pneumonia workup negative. For pneumonia he received a single dose of Vancomycin on 09/04 in addition starting Zosyn (09/04-current), transitioned to augmentin to complete 7 d course on dc.Blood culture and UA negative. Due to intermittent hypothermia and low AM cortisol to 7.6 on labs 09/07, cosyntropin stimulation testing completed and was normal, thus ruling out primary adrenal insufficiency. Course complicated by lethargy as well which improved and patient is now??awake and alert.Lethargy and hypothermia??both likely due to pneumonia.??Patient has remained normothermic for greater than 24hrs without requiring Tasha hugger and on the day of discharge pt is hemodynamically stable,??alert??and medically cleared for discharge back to [facility] facility. ?? On 09/05 he was noted to be retaining urine, > 800ccs via bladder scan, for which a Coker was placed. Labs showing PELON likely due to obstructive uropathy. Renal function improving with Coker in place and patient underwent voiding trial prior to discharge, requiring straight cath overnight for 450cc, was able to void once after but with post-void residual 250 and unable to void again, so coker was replaced. Will need outpatient urology followup. Objective Assessment and Plan Hypothermia (T68.XXXA):??resolved Sepsis (A41.9):??resolved Acute Metabolic Encephalopathy (G93.41): improving Intermittently hypothermic requiring Tasha??hugger with good effect Etiology unclear, thought to be??11/06 sepsis, however, no leukocytosis, lactic??acid WNL (0.7), and procalcitonin negative (0.18) Initial CXR 08/31??with no acute abnormality,??repeat 09/03 with developing consolidation throughout the left lung compatible with??pneumonia Respiratory pathogen panel and atypical??pneumonia workup negative Received single dose??Vancomycin 09/04 and started on Zosyn (09/04-09/08) On 09/07 pt was sleepier than usual but responsive, AM cortisol??09/07 low at 7.6 (@6am), Cosyntropinstimulation testing normal, ruling out primary adrenal insufficiency as potential cause for hypothermia, unlikely to be catatonia, unlikely to be seizure?Acute metabolic encephalopathy and hypothermia were likely due to infection, both resolved by dayof discharge ?? Recommendations: - Transition to PO Augmentin 875mg BID for 2 days (to complete total of??7-day antibiotic course) (last dose is 09/11 in the??AM) ?? Upper GI bleed (K92.2): resolved?? GERD (K21.9): Anemia of chronic disease (D63.8) Presented??for??nausea and coffee ground emesis GI evaluated patient EGD obtained 09/02 showing normal duodenum, hiatal hernia, grade C esophagitis compatible with reflux esophagitis, which could be cause of hematemesis. EGD??biopsies??showing gastric antral mucosa with mild reactive gastropathy, also Morrow's esophagus?? Hgb has remained??stable without need for blood transfusions No acute signs of bleeding ?? Recommendations: - Repeat CBC in one week to evaluate H/H - Continue high dose PPI, Pantoprazole 40mg BID upon discharge -??Continue folate, thiamine upon discharge - Follow-up with??GI for??repeat EGD in 8-12 weeks ?? Acute kidney injury superimposed on CKD (N17.9): improving Stage III chronic kidney disease (N18.30):?? History of BPH Pt??noted to be retaining??> 800ccs on??bladder scan 09/05, for which Coker was placed Renal function gradually improving ?? Recommendations: -coker placed before discharge, will need urology follow up, [facility] has been notified - Continue home finasteride and tamsulosin on discharge - BMP within one week ?? History of CVA with residual deficit (I69.30):?? Cognitive impairment (R41.89): Dysphagia (R13.10):?? Seizure Disorder (640.909): Pt oriented to self only Intermittently refusing labs, vitals, and medications Repeat ST eval 09/08 with diet upgrade to dysphagia mechanically altered level 2/thin liquids, hold PO if lethargic or AMS ?? Recommendations: - Continue diet with dysphagia mechanically altered level 2/thin liquids, hold PO if lethargic or AMS -??Continue home??PO Keppra 250mg BID - Pt does not have capacity to refuse meds, he was intermittently refusing medications, Discussed with Guardian over the phone if patient refuses meds then please redirect and administer medications,per guardian ok for physical/ chemical restraints if not accepting medications however this was notrequired. Patient would say that he refused meds but still allow them to be given while inpatient. ?? Chronic??obstructive pulmonary??disease??(J44.9):?? Pt increasingly somnolent on 12/4 morning but arousable to voice/sternal rub Maintaining O2 sat in low-mid 90s on RA Bicarb elevated during admission, possible respiratory acidosis in setting of known pulmonary disease, however VBG with normal pH Pt now awake and alert, episode less likely due to hypercapnea ?? Recommendations: - pt not on Albuterol outpatient, can consider starting PRN Albuterol outpatient ?? Chronic, stable, resolved medical conditions Schizophrenia (F20.9):??Continue home meds including benztropine, Risperidone, and olanzapine Hypothyroidism (E03.9):??Continue levothyroxine Hypertension (I10):??Continue??amlodipine CHF (congestive heart failure) (I50.9), Coronary artery disease (I25.10):?? Continue Imdur, amlodipine Paroxysmal atrial fibrillation (I48.0):??Continue Eliquis Type 2 Diabetes mellitus??(E11.9):??Continue home insulin regimen ?? Vital Signs?? Temperature: 97.6 DegF (09/09/23 08:00:00) Temperature Route: Axillary (09/09/23 08:00:00) Pulse Rate: 58 bpm (09/09/23 08:00:00) Respiratory Rate: 18 br/min (09/09/23 08:00:00) Systolic Blood Pressure:??146 mm Hg??High (09/09/23 08:00:00) Diastolic Blood Pressure: 55 mm Hg (09/09/23 08:00:00) Blood pressure sites: Arm, right (09/09/23 08:00:00) Mean Arterial Pressure: 86 mm Hg (09/08/23 20:48:00) Pulse Pressure: 91 mm Hg (09/09/23 08:00:00) Oxygen Saturation: 99 % (09/09/23 08:00:00) Liters per Minute: 18 L/min (09/09/23 08:00:00) Mode of Delivery (Oxygen): Room air (09/09/23 08:00:00) Early Warning Score: 2 (09/09/23 08:22:12) ? . Physical Exam Constitutional:??Alert, resting comfortably??in NAD Mental Status: Oriented to person only. Head: Normocephalic. Ear, Nose and Throat: Mucous membranes moist. Trachea midline. Respiratory: Clear to auscultation throughout. No rales or rhonchi. Cardiovascular:??RRR, normal S1 S2,??No murmurs, rubs or gallops. No peripheral edema. Gastrointestinal: Abdomen soft, non-tender, non-distended. Normal bowel sounds. Genitourinary: Coker catheter in place with clear yellow urine collecting Neurologic:?? No focal neurological deficits.??Moves all extremities spontaneously. Skin: No rashes or lesions. Musculoskeletal: No gross deformities. Psych: Normal mood and affect Surgical Procedures Gastroscopy (EGD) Diagnostic 09/02/2023 10:57 [facility] G[facility]ology Pending Results Add On Lab Order ordered on 08/31/2023 Add On Lab Order ordered on 09/02/2023 Add On Lab Order ordered on 09/04/2023 Blood Culture ordered on 09/03/2023 Blood Culture #2 ordered on 09/04/2023 Blood Gas Venous ordered on 09/07/2023 CBC ordered on 09/06/2023 Comprehensive Metabolic Panel ordered on 09/06/2023 Magnesium Level ordered on 09/06/2023 Phosphorus Level ordered on 09/06/2023 Sputum Culture w/ Gram Smear ordered on 09/04/2023 Patient Education Titles Anemia, Type Not Specified (Adult)?? Discharge Instructions for Acute Kidney Injury?? Follow-Up Appointments Added Follow Up ?Time Frame ?Comments Arnulfo PRADO, Mark?1-2 day: call to discuss follow up visit Patient Instructions You came to the hospital due to??dark bloody emesis.?? You underwent??endoscopy??which showed findings of esophagitis. ??Will discharge you on Pantoprazole 40mg BID which should be taken until you obtain endoscopy outpatient. Please follow up with endoscopy in 8 to 12 weeks. You also were found to have pneumonia and we will prescribe you?? 2 more days of antibiotics (Augmentin 875mg twice daily with last dose on 09/08 in the PM) This will complete 7 day course. Your hypothermia is likely not dueto cortisol deficiency and not due pneumonia. You will need Urology follow up outpatient within 1 week if you continue to have urinary retention.??Please follow up with your PCP within 1 week to obtain outpatient labs. Post Discharge Care Diet: ??Dysphagia Mech Altered (Level 2) Diet ?? Activity: ??Ambulate with assistance 3 times a day unless otherwise specified ?? Code Status: ??Full Resuscitation ?? Condition: ??fair ?? Prognosis: ??Fair ?? Home Health Face to Face ^HomeHealthFTF Results Discharge Labs BACTERIOLOGY MRSA PCR Result Negative, MRSA target DNA not detected. ()?? 09/04/2023 14:55 S Aureus ??PCR Result Negative, SA target DNA not detected. ()?? 09/04/2023 14:55 ?? BLOOD BANK Blood Type O Positive ()?? 08/31/2023 10:37 Antibody Screen Negative ()?? 08/31/2023 10:37 ?? BLOOD COUNT & DIFF WBC 7.8 k/mm3 ()?? 09/07/2023 01:12 RBC 2.81 m/mm3 (Low)?? 09/07/2023 01:12 Hgb 7.9 Gm/dL (Low)?? 09/07/2023 01:12 Hct 25.8 % (Low)?? 09/07/2023 01:12 MCV 91.8 femtoliters ()?? 09/07/2023 01:12 MCH 28.1 pg ()?? 09/07/2023 01:12 MCHC 30.6 g/dL (Low)?? 09/07/2023 01:12 Platelet Count 145 k/mm3 (Low)?? 09/07/2023 01:12 RDW-SD 58.9 femtoliters (High)?? 09/07/2023 01:12 MPV 11.3 femtoliters ()?? 09/07/2023 01:12 Nucleated RBC (Automated) 0.0 #/100 WBC'S ()?? 09/07/2023 01:12 Abs. NRBC 0.0 k/mm3 ()?? 09/07/2023 01:12 Abs. Neut 5.3 k/mm3 ()?? 09/06/2023 11:25 Abs. Lymph 1.8 k/mm3 ()?? 09/06/2023 11:25 Abs. Upson 0.7 k/mm3 ()?? 09/06/2023 11:25 Abs. Eo 0.2 k/mm3 ()?? 09/06/2023 11:25 Abs. Baso 0.0 k/mm3 ()?? 09/06/2023 11:25 Neut % 65.3 % ()?? 09/06/2023 11:25 Lymph % 21.8 % ()?? 09/06/2023 11:25 Upson % 9.0 % ()?? 09/06/2023 11:25 Eos % 2.6 % ()?? 09/06/2023 11:25 Baso % 0.2 % ()?? 09/06/2023 11:25 Imm Gran 1.1 % ()?? 09/06/2023 11:25 Abs. Imm Gran 0.1 k/mm3 ()?? 09/06/2023 11:25 ?? BLOOD GAS pH, Venous 7.41 ()?? 09/07/2023 14:02 ? CARDIAC CK, Total 82 units/L ()?? 08/31/2023 11:02 High Sensitivity Troponin (HSTnT) 37 ng/L (High)?? 08/31/2023 20:41 ?? CHEM GENERAL Sodium 142 mmol/L ()?? 09/07/2023 01:12 Potassium 4.1 mmol/L ()?? 09/07/2023 01:12 Chloride 105 mmol/L ()?? 09/07/2023 01:12 Bicarbonate Level 27 mmol/L ()?? 09/07/2023 01:12 Anion Gap 10 ()?? 09/07/2023 01:12 Glucose Level 168 mg/dL (High)?? 09/07/2023 01:12 Glucose, POC 159 mg/dL (High)?? 09/09/2023 08:01 BUN 45 mg/dL (High)?? 09/07/2023 01:12 Creatinine-Blood 3.0 mg/dL (High)?? 09/07/2023 01:12 Estimated GFR Creatinine 21 ML/MIN/1.73 M2 ()?? 09/07/2023 01:12 Calcium 8.6 mg/dL ()?? 09/07/2023 01:12 Calcium, Ionized pH Corrected 1.26 mmol/L ()?? 08/31/2023 20:41 Phosphorus 2.5 mg/dL ()?? 09/07/2023 01:12 Magnesium 1.8 mg/dL ()?? 09/07/2023 01:12 Protein, Total 6.4 Gm/dL ()?? 09/07/2023 01:12 Albumin 3.1 Gm/dL (Low)?? 09/07/2023 01:12 AG Ratio 0.9 ()?? 09/07/2023 01:12 Alkaline Phosphatase 184 units/L (High)?? 09/07/2023 01:12 Lipase 42 units/L ()?? 08/31/2023 11:02 AST (SGOT) 13 units/L ()?? 09/07/2023 01:12 ALT (SGPT) 11 units/L ()?? 09/07/2023 01:12 Bilirubin, Total 0.2 mg/dL ()?? 09/07/2023 01:12 Lactate 0.7 mmol/L ()?? 08/31/2023 20:41 ? COAG INR 1.0 ()?? 08/31/2023 20:41 Protime (PT) 11.1 seconds ()?? 08/31/2023 20:41 APTT 32.5 seconds ()?? 08/31/2023 20:41 ? ENDOCRINE/TUMOR MARKER TSH 7.51 uIU/mL (High)?? 09/01/2023 09:50 Free T4 1.03 ng/dL ()?? 09/01/2023 09:50 T3, Free 1.8 pg/mL (Low)?? 09/02/2023 05:48 Cortisol Level 7.6 ??g/dL ()?? 09/07/2023 06:05 Cortisol 30 Min Post 19.6 ??g/dL ()?? 09/07/2023 14:02 Cortisol 60 Min Post 20.5 ??g/dL ()?? 09/07/2023 14:41 ?? MISC. CHEMISTRY Procalcitonin 0.18 ng/mL ()?? 09/03/2023 06:47 ? SEROLOGY INF DISEASE Legionella pneumophila Antigen NEGATIVE ()?? 09/04/2023 18:14 S. Pneumococcus Urinary Ag NEGATIVE ()?? 09/04/2023 18:14 ?? UA/URINALYSIS Appear/Color, Urine LIGHT YELLOW ()?? 09/04/2023 18:14 Specific [place], Urine 1.018 ()?? 09/04/2023 18:14 pH, Urine 6.0 ()?? 09/04/2023 18:14 Albumin, Urine 2+ (Abnormal)?? 09/04/2023 18:14 Glucose, Urine NEGATIVE ()?? 09/04/2023 18:14 Ketones, Urine NEGATIVE ()?? 09/04/2023 18:14 Bilirubin, Urine NEGATIVE ()?? 09/04/2023 18:14 Hemoglobin, Urine NEGATIVE ()?? 09/04/2023 18:14 Nitrite, Urine NEGATIVE ()?? 09/04/2023 18:14 Leukocyte, Urine NEGATIVE ()?? 09/04/2023 18:14 Urobilinogen NORMAL mg/dL ()?? 09/04/2023 18:14 WBC's, Urine <1 /HPF ()?? 09/04/2023 18:14 RBC's, Urine <1 /HPF ()?? 09/04/2023 18:14 Hold Urine Culture Testing available 48 hours from time of collection. ()?? 08/31/2023 18:01 ?? VIROLOGY Influenza A PCR NEGATIVE ()?? 08/31/2023 20:25 Influenza B PCR NEGATIVE ()?? 08/31/2023 20:25 RSV PCR NEGATIVE ()?? 08/31/2023 20:25 Adenovirus by PCR NEGATIVE ()?? 09/04/2023 11:31 Coronavirus 229E by PCR (not COVID-19) NEGATIVE ()?? 09/04/2023 11:31 Coronavirus HKU1 by PCR (not COVID-19) NEGATIVE ()?? 09/04/2023 11:31 Coronavirus NL63 by PCR (not COVID-19) NEGATIVE ()?? 09/04/2023 11:31 Coronavirus OC43 by PCR (not COVID-19) NEGATIVE ()?? 09/04/2023 11:31 Human Metapneumovirus by PCR NEGATIVE ()?? 09/04/2023 11:31 Rhinovirus/Enterovirus by PCR NEGATIVE ()?? 09/04/2023 11:31 Influenza A by PCR NEGATIVE ()?? 09/04/2023 11:31 Influenza B by PCR NEGATIVE ()?? 09/04/2023 11:31 Parainfluenza 1 by PCR NEGATIVE ()?? 09/04/2023 11:31 Parainfluenza 2 by PCR NEGATIVE ()?? 09/04/2023 11:31 Parainfluenza 3 by PCR NEGATIVE ()?? 09/04/2023 11:31 Parainfluenza 4 by PCR NEGATIVE ()?? 09/04/2023 11:31 RSV by PCR NEGATIVE ()?? 09/04/2023 11:31 Bordetella Pertussis by PCR NEGATIVE ()?? 09/04/2023 11:31 Chlamydophila Pneumoniae by PCR NEGATIVE ()?? 09/04/2023 11:31 Mycoplasma Pneumoniae by PCR NEGATIVE ()?? 09/04/2023 11:31 COVID-19 PCR Specimen Source NASAL ()?? 08/31/2023 20:25 COVID-19 PCR Result NEGATIVE ()?? 08/31/2023 20:25 COVID-19 (SARS-CoV-2) by PCR NEGATIVE ()?? 09/04/2023 11:31 Bordetella Parapertussis by PCR NEGATIVE ()?? 09/04/2023 11:31 ? Microbiology ?? COVID-19, RSV, and Flu A/B, Rapid PCR?? Completed?? Source: Nasal Body Site: Nose Collected Dt/Tm: 08/31/2023 15:25 Last Updated Dt/Tm: 08/31/2023 21:46 Blood Culture?? Completed?? Source: Blood Body Site: ?? Collected Dt/Tm: 08/31/2023 20:41 Last Updated Dt/Tm: 08/31/2023 17:34 ?SPECIMEN DESCRIPTION : BLOOD ??RASPECIAL REQUESTS : NONECULTURE : NO GROWTH 5 DAYS.REPORT STATUS : FINAL 09/05/2023 Blood Culture #2?? Completed?? Source: Blood Body Site: ?? Collected Dt/Tm: 08/31/2023 20:41 Last Updated Dt/Tm: 08/31/2023 17:34 ?SPECIMEN DESCRIPTION : BLOOD ??L HSPECIAL REQUESTS : NONECULTURE : NO GROWTH 5 DAYS.REPORT STATUS : FINAL 09/05/2023 Respiratory Pathogen PCR with COVID-19?? Completed?? Source: Nasal Body Site: Nose Collected Dt/Tm: 09/04/2023 07:34 Last Updated Dt/Tm: 09/04/2023 14:04 MRSA PCR Nasal Swab?? Completed?? Source: Swab Body Site: Nares Both Collected Dt/Tm: 09/04/2023 14:59 Last Updated Dt/Tm: 09/04/2023 18:57 ?? Reason For Exam Sepsis;Other: ?? RESULT: CT Abdomen and Pelvis W/O Contrast CT Abdomen and Pelvis W/O Contrast? Reason: Other:; Sepsis; Clinical Question(s): Other:; r o colitis(stool), hydronephrosis; Special Instructions: CAN BE DONE ON THE WAY TO THE FLOOR; Order Comment: ?? TECHNIQUE: Spiral CT through the abdomen and pelvis without IV contrast formatted in 3 planes. Thisstudy was performed without oral contrast. Weight- based protocol using automatic tube modulation was used to optimize exposure parameters.? CTDIvol Body: 18.57 mGy, ??DLP Body: 1101 mGy*cm. ? COMPARISON: 05/28/2023 ?? FINDINGS:? Tag Press Operator View Findings, Lines and Tubes: None. ?? Visualized Chest: Areas of groundglass opacity with septal thickening. Trace right pleural effusion. Small hiatal hernia. The heart is normal in size. No pericardial effusion. ?? Diaphragm: Normal. ?? Liver: Normal. ?? Gallbladder: No CT evidence of gallbladder pathology. ?? Bile ducts: No biliary ductal dilation. ?? Spleen: Normal. ?? Pancreas: Normal. ?? Adrenal glands: Normal. ?? Kidneys and ureters: No hydronephrosis, or noncontrast evidence of suspicious masses. Multiple cysts within the right kidney. 3 mm nonobstructing stone within the midpole of the right kidney. ?? Bladder: There is mild bladder wall thickening likely due to under distention. ?? Reproductive organs: Unremarkable. ?? Stomach, small bowel, and large bowel: There is moderate amount of stool throughout the colon. There are a few scattered diverticula within the descending, and sigmoid colon. ?? Appendix: Normal. ?? Peritoneum and retroperitoneum: No ascites or pneumoperitoneum. No omental or mesenteric lesions. ?? Lymph nodes: No enlarged lymph nodes. ?? Blood vessels: Normal. No aneurysm. ?? Abdominal and pelvic wall: Unremarkable. ?? Bones: No acute abnormality. ?? IMPRESSION:? Trace right pleural effusion. Bibasilar atelectasis. Volume overload. Few scattered diverticula within the sigmoid colon without definite evidence of diverticulitis. No evidence of colitis. ? Note??completed with assistance??by Medical Student. Douglas Solares, MS4 ?? Pt seen and discussed with Attending Dr. Conner ?? Douglas Rao,??DO PGY-2 Internal Medicine Pager [phone]/ cortext? 45 minutes spent on discharge * Ubaldo PRADO, Cata Díaz: PERFORM Event Display: Discharge/Transfer Note Hospital Authored Date: Attending Attestation:??I have seen and evaluated this patient.?I have discussed the case and its management with the resident and agree with the findings and plan as documented in the resident???s note except where modified. ? Cata Conner MD * Ilya TAPIA, Kell Morfin: PERFORM, SIGN, VERIFY Event Display: Case Management Discharge Plan Authored Date: Patient: ARGENTINA PIPER Age: 73 years Sex: Male : 1950 Associated Diagnoses: None Author: Ilya TAPIA, Kell Morfin Discharge Plan Case Management Discharge Plan : Case Management Discharge Plan Data 09/09/2023 11:17 EST Discharge Level of Care at Discharge [facility] facility Discharge Nursing Homes/Rehab Facilities [facility] [phone] Discharge Transportation Arranged [facility] [address] [facility] [phone] Discharge Arranged Transport Date/Time 09/09/2023 14:00 Mode of Transportation Arranged Ambulance [facility] Foreman #1 admissiona Service Categories #1 Occupational Therapy, Physical Therapy, Fpc, Adjunct Professor Of Voice, Speech Therapy 09/03/2023 10:43 EST Discharge Nursing Homes/Rehab Facilities formerly [facility] * Freddie TAPIA, Shannen Watson: PERFORM Event Display: Patient Education/Instruction Authored Date: [id number] Inpatient Adult Discharge Instructions [address] [address] Name: ARGENTINA PIPER : 1950 Visit: 08/31/2023 23:47:00 Current Date: 09/09/2023 13:58 Account: [id number] Inpatient Adult Discharge Instructions We would like to thank you for allowing us to assist you with your healthcare needs. The following includes patient education materials and information regarding your injury/illness. Our entire staffstrives to provide an excellent experience for our patients and their families. PLEASE ENSURE YOU FOLLOW-UP PER THE INSTRUCTIONS BELOW! ?? YOUR OPINION IS IMPORTANT TO US! Please complete the survey you may receive by mail or email. Your feedback will be used to make improvements to the healthcare experiences of our patients and their families. Surveys are administered by [employer] ?? If further treatment with your primary care physician or another doctor is recommended, it is important for you to keep the appointment. Call your primary care physician or return to the Emergency Department immediately if your condition worsens, fails to improve, or new symptoms develop. If you need to find a doctor, you can call [facility] Link for a referral at [phone] or toll free at [phone] or log in to [email or web address].. ?? [facility], in keeping with [facility] guidance, no longer requires face masks for staff, patientsor visitors in most situations. Similiar to time spent indoors at other locations, there is the chance that you were exposed to repiratory viruses during your time with us (such as flu or COVID-19). If you develop symptoms concerning for a viral respiratory infection, please seek testing (and treatment if indicated) from your medical provider or home test kit. ?? You can view and manage your care through the patient portal or by using a health care balaji of your choosing. [employer] is a website that allows you to securely view your medical information including your hospital discharge summary, office visit summaries, medications and follow-up visits. You can also request appointments, renew medications, and request access to your medical information using a health care balaji of your choosing, or just ask a question. You can enroll at [email or web address] or register during your next office visit. You have been discharged from [facility], Patient Care Unit: S3. If you have any questions regarding these instructions after you leave, please call us and we will be happy to assist you. [facility] Your Care Team Attending Physician Ubaldo PRADO, Cata Díaz Consulting Providers Jude Gusman MD; Amelia Car; Sarah Lang DO Discharging Providers Douglas Rao DO Reason for Admission coming from nursing facility,EMS been called for bleeding,nausea and vomiting ,couging up blood ,hematuria,he is on blood thinner ,recent admission for CVA Your Diagnosis Upper GI bleed Hypothermia Sepsis Stage III chronic kidney disease Schizophrenia Type 2 diabetes mellitus Hypertension History of CVA with residual deficit Dysphagia Atrial fibrillation Coronary artery disease CHF (congestive heart failure) Hypothyroidism Chronic obstructive pulmonary disease GERD (gastroesophageal reflux disease) Cognitive impairment Seizure disorder Anemia of chronic disease Acute kidney injury superimposed on CKD Acute metabolic encephalopathy Tests Performed Below is a partial list of the tests performed during your hospitalization. You may have had other tests and procedures not included in this list. Please discuss all test results with your provider. [id number] Basic Metabolic Panel BUN CBC CK (CREATINE KINASE) COMPLETE CBC WITH DIFF Comprehensive Metabolic Panel Cortisol 30 Minutes Cortisol 60 Minutes Cortisol Level COVID-19, RSV, and Flu A/B, Rapid PCR Creatinine Electrolytes FREE T3 Glucose Level GLUCOSE POC INR Ionized Calcium Lactate Level Legionella Antigen Urine Lipase MAGNESIUM Mg Level MRSA PCR Nasal Swab pH Venous Phosphorus Level PROCALCITONIN, SERUM PTT Respiratory Pathogen PCR with COVID-19 Strep Pneumoniae Urinary Ag Thyroid Panel Troponin T, High Sensitivity Type and Screen Urinalysis Complete Urinalysis w/hold for Urine Culture CT Abdomen and Pelvis W/O Contrast CXR Portable XR Chest Portable Primary Care Provider Arnulfo PRADO, Mark Advance Directive Health Care Proxy on File No Discharge Vitals Temperature: 98.1 DegF Weight: 94.7 kg Pulse Rate: 57 bpm ?? Respiratory Rate: 18 br/min ?? Systolic Blood Pressure: 130 mm Hg ?? Diastolic Blood Pressure: 56 mm Hg ?? Oxygen Saturation:??93 %??Low ?? Studies Pending All tests and labs ordered during this hospital stay have been completed unless listed below. Please discuss all pending results with your provider listed above in these instructions. ?? Add On Lab Order Blood Culture Blood Culture #2 Blood Gas Venous (VBG) CBC Comprehensive Metabolic Panel Magnesium Level (Mg Level) Phosphorus Level Sputum Culture w/ Gram Smear What to do next Instructions From Your Doctor Discharge Orders Diet:??Dysphagia Mech Altered (Level 2) Diet Activity:??Ambulate with assistance 3 times a day unless otherwise specified Code Status:?? Full Resuscitation Condition:??fair Prognosis:??Fair You Need to Schedule the Following Appointments Follow Up with??Mark Arredondo MD When:??Within 1-2 day: call to discuss follow up visit Where: [address] [facility] Emergency Medicine [place], [place] [id number]- Discharge Medications ARGENTINA PIPER :1950 Visit Date:08/31/2023 Medications: Please continue your medications until treatment is completed or stopped by your provider. Medications not listed below should be discontinued. Discuss any questions related to medications with your provider. What How Much When Instructions Next Dose New Amoxicillin-Clavulanate (Augmentin 875 Tablet) 1 tab(s) Oral Twice a day Last dose to be on 12/ 8 in AM ?? 09/09 tonight New Pantoprazole (pantoprazole 40 mg oral delayed release tablet) 40 Milligram Oral Twice a day continue until endoscopy obtained ?? 09/09 tonight New Thiamine (thiamine 100 mg oral tablet) 100 Milligram Oral Daily 09/10 tomorrow morning Changed Acetaminophen (Acephen 650 mg rectal suppository) 1 suppository(ies) Per rectum Every 8 hours as needed for pain/fever >101F as needed Changed Acetaminophen (acetaminophen 325 mg oral tablet) 2 tab(s) Oral Every 8 hours as needed for pain/fever >101F as needed Changed Amlodipine (amLODIPine 10 mg oral tablet) 1 tab(s) Oral Daily in the morning 09/10 tomorrow morning Changed Atorvastatin (atorvastatin 20 mg oral tablet) 1 tab(s) Oral Daily at Bedtime 09/09 tonight Changed Benztropine (benztropine 1 mg oral tablet) 1 Milligram Oral Twice a day 09/09 tonight Changed Cholecalciferol (cholecalciferol 2000 intl units oral tablet) 1 tab(s) Oral Daily in the morning 09/10 tomorr morning Changed Docusate (docusate sodium 100 mg oral capsule) 2 capsule Oral Daily in the morning 09/10orr morning Changed Finasteride (finasteride 5 mg oral tablet) 1 tab(s) Oral Daily in the morning 09/10orr morning Changed Folic Acid (folic acid 1 mg oral tablet) 1 tab(s) Oral Daily in the morning 09/10orr morning Changed Haloperidol (haloperidol decanoate 50 mg/ ml injectable solution) 0.5 Milliliter Intramuscular Every 28 days STARTED ?? resume home schedule Changed Insulin Lispro (insulin lispro 100 units/ mL injectable solution) 2-10 units Subcutaneous Injection 3 times a day with meals 09/09 at 5pm Changed Isosorbide Mononitrate (Imdur 30 mg oral tablet, extended release) 30 Milligram Oral Daily 09/10 tomorr morning Changed Multivitamin (Daily Seema oral tablet) 1 tab(s) Oral Daily in the morning 09/10orr morning Changed Olanzapine (olanzapine 5 mg oral tablet) 5 Milligram Oral Daily at Bedtime 09/09 tonight Changed Risperidone (risperiDONE 2 mg oral tablet) 1 tab(s) Oral Twice a day 09/09 tonight Changed Senna (Senna 8.6 mg oral tablet) 2 tab(s) Oral Daily as needed for for constipation as needed Changed Sucralfate (Carafate 1 gm oral tablet) 1 tab(s) Oral 3 times a day 6 AM, 12 PM & 5 PM NOT ON PAPER CHART ?? 09/09 at 5pm Changed Tamsulosin (tamsulosin 0.4 mg oral capsule) 2 capsule Oral Daily at Bedtime 09/09 tonight Changed apixaban (Eliquis 5 mg oral tablet) 1 tab(s) Oral Twice a day 09/09 tonight Changed levETIRAcetam (levETIRAcetam 100 mg/ mL oral solution) 2.5 Milliliter Oral Twice a day 09/09 today at 6pm Unchanged Bisacodyl (bisacodyl 10 mg rectal suppository) 1 suppository(ies) Per rectum Every 72 hours as needed for if no BM in 3 days if MOMis ineffective ?? as needed Unchanged Emollients, Topical (Minerin topical cream) Topically Daily at Bedtime to bilateral feet ?? 09/09 tonight Unchanged Glucagon (Glucagon Emergency Kit for Low Blood Sugar 1 mg injection) 1 Milligram Intramuscular Once as needed for low blood sugar <60 or >300 as needed Unchanged Glucagon (Gvoke HypoPen 1 mg/ 0.2 mL subcutaneous solution) 1 Milligram Subcutaneous Injection Once as needed for Hypoglycemia as needed Unchanged Glucose (glucose 40% oral gel) 15 gram Oral Once as needed for low blood sugar <60 as needed Unchanged Glucose (Insta-Glucose 24 g/ 31 g oral gel) See instructions gel BS <60 with S/ S (if resident is able to take by mouth) give glucose 1 tube by mouth - recheck & retreat every 15min until greater than 100 BS ?? as needed Unchanged Lactulose (lactulose 10 gm/ 15 ml oral syrup) 30 Milliliter Oral Daily 12/ tomorrow morning Unchanged Levothyroxine (Synthroid 0.1 mg oral tablet) 100 Microgram Oral Daily 09/10 tomorrow morning Unchanged Milk of Magnesia (MOM Liquid) 30 Milliliter Oral Every 72 hours as needed for if no BM in 3 days as needed Unchanged Sodium Biphosphate-Sodium Phosphate (Fleet Enema 19 gm-7 gm rectal enema) 1 Each Per rectum Every 72 hours as needed for if no BM in 3 days if suppository is ineffective ?? as needed Test Results Below is a partial list of the most recent Laboratory test results done prior to this discharge. You may have had other tests and procedures not included in this list. Please discuss all test resultswith your provider. (09/02/2023) ? ?Surgical Pathology - Patient Name: ARGENTINA PIPER
Lab
Patient : 1950 (Age: 73)
Collection Date: 09/02/2023
Accession Date: 09/02/2023
Sign Out Date: 09/03/2023

<b r/>Tissue Source:
1:GASTRIC BXS
2:ESOPHAGEAL BXS

Final Diagnosis:
1. Stomach, biopsies:
- Gastric antral mucosa with mild gonsalo ctive gastropathy.
- Gastric oxyntic mucosa with no significant diagnostic alterations.
- No morphologic evidence of Helicobacter pylori micro- organisms.
- Separate fragments of intestinalized cardiofundic mucosa with chronic inflammation (see note).

Note: If these fragments are sampled from the stomach, findings would favor chronic gastritis with intestinal metaplasia. However, if carryover from the esophagus, they are consistent with Morrow's esophagus. Endoscopic correlation would be helpful.

2. Esophagus, biopsy:
- Morrow's esophagus, negative for dysplasia.

Primary Pathologist:Yifan Jordan MD
electronically signed out by: Yifan Jordan MD / Sugey VELASQUEZ

Clinical History:
Erosive gastritis
GEJ nodularity

Gross Description:
Part 1. Labeled gastric biopsies . Received in formalin are 6 ramirez-pink irregularsoft tissue pieces ranging from 0.2 x 0.2 x 0.2 cm to 0.5 x 0.3 x 0.2 cm. The specimen is submitted in toto.
1-6 pieces x 2 EOE. (RM)*
Part 2. Labeled &quot ;esophageal biopsies . Received in formalin are 4 ramirez-pink irregular soft tissuepieces ranging from 0.2 x 0.2 x 0.2 cm to 0.4 x 0.3 x 0.3 cm. The specimen is submitted in toto.
1-4 pieces x 2 EOE. (RM)*

Phone #: [phone], On-Call Pathologist: [id number] Basic Metabolic Panel (09/03/2023) ???Sodium - 146 mmol/L???Potassium - 4.4 mmol/L???Chloride - 103 mmol/L???Bicarbonate Level - 31 mmol/L???Anion Gap - 12???Glucose Level - 85 mg/dL???BUN - 57 mg/dL???Creatinine-Blood - 3.5 mg/dL???Estimated GFR Creatinine - 17 ML/MIN/1.73 M2???Calcium - 9.9 mg/dL BUN (08/31/2023) ???BUN - 54 mg/dL CBC (09/07/2023) ???WBC - 7.8 k/mm3???RBC - 2.81 m/mm3???Hgb - 7.9 Gm/dL???Hct - 25.8 %???MCV - 91.8 femtoliters???MCH - 28.1 pg???MCHC - 30.6 g/dL???Platelet Count - 145 k/mm3???RDW-SD - 58.9 femtoliters???MPV - 11.3 femtoliters???Nucleated RBC (Automated) - 0.0 #/100 WBC'S???Abs. NRBC - 0.0 k/mm3 CK (CREATINE KINASE) (08/31/2023) ???CK, Total - 82 units/L COMPLETE CBC WITH DIFF (09/06/2023) ???WBC - 8.1 k/mm3???RBC - 2.73 m/mm3???Hgb - 7.7 Gm/dL???Hct - 25.1 %???MCV - 91.9 femtoliters???MCH - 28.2 pg???MCHC - 30.7 g/dL???Platelet Count - 144 k/mm3???RDW-SD - 58.5 femtoliters???MPV - 11.4 femtoliters???Nucleated RBC (Automated) - 0.0 #/100 WBC'S???Abs. NRBC - 0.0 k/mm3???Abs. Neut - 5.3 k/mm3???Abs. Lymph - 1.8 k/mm3???Abs. Upson - 0.7 k/mm3???Abs. Eo - 0.2 k/mm3???Abs. Baso - 0.0 k/mm3???Neut % - 65.3 %???Lymph % - 21.8 %???Upson % - 9.0 %???Eos % - 2.6 %???Baso % - 0.2 %???Imm Gran- 1.1 %???Abs. Imm Gran - 0.1 k/mm3 Comprehensive Metabolic Panel (09/07/2023) ???Sodium - 142 mmol/L???Potassium - 4.1 mmol/L???Chloride - 105 mmol/L???Bicarbonate Level - 27 mmol/L???Anion Gap - 10???Glucose Level - 168 mg/dL???BUN - 45 mg/dL???Creatinine-Blood - 3.0 mg/dL???Estimated GFR Creatinine - 21 ML/MIN/1.73 M2???Calcium - 8.6 mg/dL???Protein, Total - 6.4 Gm/dL???Albumin - 3.1 Gm/dL???AG Ratio - 0.9???Alkaline Phosphatase - 184 units/L???AST (SGOT) - 13 units/L???ALT (SGPT) - 11 units/L???Bilirubin, Total - 0.2 mg/dL Cortisol 30 Minutes (09/07/2023) ???Cortisol 30 Min Post - 19.6 ??g/dL Cortisol 60 Minutes (09/07/2023) ???Cortisol 60 Min Post - 20.5 ??g/dL Cortisol Level (09/07/2023) ???Cortisol Level - 7.6 ??g/dL COVID-19, RSV, and Flu A/B, Rapid PCR (08/31/2023) ???Influenza A PCR - NEGATIVE???Influenza B PCR - NEGATIVE???RSV PCR - NEGATIVE???COVID-19 PCR Specimen Source - NASAL???COVID-19 PCR Result - NEGATIVE Creatinine (08/31/2023) ???Creatinine-Blood - 2.8 mg/dL???Estimated GFR Creatinine - 23 ML/MIN/1.73 M2 Electrolytes (09/01/2023) ???Sodium - 142 mmol/L???Potassium - 5.0 mmol/L???Chloride - 104 mmol/L???Bicarbonate Level - 31 mmol/L???Anion Gap - 7 FREE T3 (09/02/2023) ???T3, Free - 1.8 pg/mL Glucose Level (08/31/2023) ???Glucose Level - 78 mg/dL GLUCOSE POC (09/09/2023) ???Glucose, POC - 89 mg/dL INR (08/31/2023) ???INR - 1.0???Protime (PT) - 11.1 seconds Ionized Calcium (08/31/2023) ???Calcium, Ionized pH Corrected - 1.26 mmol/L Lactate Level (08/31/2023) ???Lactate - 0.7 mmol/L Legionella Antigen Urine (09/04/2023) ???Legionella pneumophila Antigen - NEGATIVE Lipase (08/31/2023) ???Lipase - 42 units/L MAGNESIUM (09/06/2023) ???Magnesium - 1.7 mg/dL Mg Level (09/07/2023) ???Magnesium - 1.8 mg/dL MRSA PCR Nasal Swab (09/04/2023) ???MRSA PCR Result - Negative, MRSA target DNA not detected.???S Aureus PCR Result - Negative, SA target DNA not detected. pH Venous (09/07/2023) ???pH, Venous - 7.41 Phosphorus Level (09/07/2023) ???Phosphorus - 2.5 mg/dL PROCALCITONIN, SERUM (09/03/2023) ???Procalcitonin - 0.18 ng/mL PTT (08/31/2023) ???APTT - 32.5 seconds Respiratory Pathogen PCR with COVID-19 (09/04/2023) ???Adenovirus by PCR - NEGATIVE???Coronavirus 229E by PCR (not COVID-19) - NEGATIVE???Coronavirus HKU1 by PCR (not COVID-19) - NEGATIVE???Coronavirus NL63 by PCR (not COVID-19) - NEGATIVE???Coronavirus OC43 by PCR (not COVID-19) - NEGATIVE???Human Metapneumovirus by PCR - NEGATIVE???Rhinovirus/Enterovirus by PCR - NEGATIVE???Influenza A by PCR - NEGATIVE???Influenza B by PCR - NEGATIVE???Parainfluenza 1 by PCR - NEGATIVE???Parainfluenza 2 by PCR - NEGATIVE???Parainfluenza 3 by PCR - NEGATIVE???Parainfluenza 4 by PCR - NEGATIVE???RSV by PCR - NEGATIVE???Bordetella Pertussis by PCR - NEGATIVE??? Chlamydophila Pneumoniae by PCR - NEGATIVE???Mycoplasma Pneumoniae by PCR - NEGATIVE???COVID-19 (SARS-CoV-2) by PCR - NEGATIVE???Bordetella Parapertussis by PCR - NEGATIVE Strep Pneumoniae Urinary Ag (09/04/2023) ???S. Pneumococcus Urinary Ag - NEGATIVE Thyroid Panel (09/01/2023) ???TSH - 7.51 uIU/mL???Free T4 - 1.03 ng/dL Troponin T, High Sensitivity (08/31/2023) ???High Sensitivity Troponin (HSTnT) - 37 ng/L Type and Screen (08/31/2023) ???Blood Type - O Positive???Antibody Screen - Negative Urinalysis Complete (09/04/2023) ???Appear/Color, Urine - LIGHT YELLOW???Specific [place], Urine - 1.018???pH, Urine - 6.0???Albumin, Urine - 2+???Glucose, Urine - NEGATIVE???Ketones, Urine - NEGATIVE???Bilirubin, Urine - NEGATIVE???Hemoglobin, Urine - NEGATIVE???Nitrite, Urine - NEGATIVE???Leukocyte, Urine - NEGATIVE???Urobilinogen - NORMAL? ?WBC's, Urine - <1 /HPF? ?RBC's, Urine - <1 /HPF Urinalysis w/hold for Urine Culture (08/31/2023) ???Appear/Color, Urine - LIGHT YELLOW???Specific [place], Urine - 1.014???pH, Urine - 7.5???Albumin, Urine - 2+???Glucose, Urine - NEGATIVE???Ketones, Urine - NEGATIVE???Bilirubin, Urine - NEGATIVE???Hemoglobin, Urine - NEGATIVE???Nitrite, Urine - NEGATIVE???Leukocyte, Urine - NEGATIVE???Urobilinogen - NORMAL? ?WBC's, Urine - <1 /HPF? ?RBC's, Urine - 1 /HPF? ?Hold Urine Culture - Testing available 48 hours from time of collection. Allergies (NKA means No Known Allergies) NKA Problems Active Problems??(16) Anemia of chronic disease?? Atrial fibrillation?? CHF (congestive heart failure)?? Chronic obstructive pulmonary disease?? Cognitive impairment?? Coronary artery disease?? Dementia?? Dysphagia?? GERD (gastroesophageal reflux disease)?? History of CVA with residual deficit?? Hypertension?? Hypothyroidism?? Schizophrenia?? Seizure disorder?? Stage III chronic kidney disease?? Type 2 diabetes mellitus?? Education Materials Below is the list of Educational Leaflet Providered with your Discharge Instructions. Anemia, Type Not Specified (Adult)?? Discharge Instructions for Acute Kidney Injury?? Valuables and Belongings I fully understand and agree that [facility] accepts no responsibility for all my personal property including clothing, toilet articles, radios, jewelry, dentures, hearing aids, rings, money, or any other property that is in my possession or is brought to me after admission. I understand certain valuables may be placed in a hospital safe for a short period of time. I understand that the hospital is not liable for loss or damage due to accident, fire, or other natural occurrence while said property is in the safe. I accept full responsibility for any personal property that I keep with me, and will not hold the hospital responsible in case of loss or disappearance. I acknowledge that i have been encouraged to send valuables and belongings home. ?? Review of Valuable and Belonging List: With patient, With witness Date for Pt to Sign Valuables/Belongings: 09/09/23 12:33:00 ?? Other Discharge Information ? Case Management Discharge Plan?? Discharge Plan?? Discharge Agency Information?? Discharge Level of Care at Discharge: [facility] facility Name of Agency #1: [facility] Discharge Transportation Arranged: [facility] [address] [facility] [phone] Foreman #1: admissiona Mode of Transportation Arranged: Ambulance Service Categories #1: Occupational Therapy, Physical Therapy, Fpc, Adjunct Professor Of Voice, Speech Therapy Discharge Arranged Transport Date/Time: 09/09/23 14:00:00 ?? Discharge Nursing Homes/Rehab Facilities: [facility] ??[phone] ? Pulmonary Rehab Status?? Pulmonary Rehab Discharge Status?? Respiratory Rate: 18 br/min ? Common Emergency Awareness Tips IS IT A STROKE? Act FAST and Check for these signs: FACE Does the face look uneven? ARM Does one arm drift down? SPEECH Does their speech sound strange? TIME Call at any sign of stroke ?? Heart Attack Signs Chest discomfort: Most heart attacks involve discomfort in the center of the chest and lasts more than a few minutes, or goes away and comes back. It can feel like uncomfortable pressure, squeezing, fullness or pain. Discomfort in upper body: Symptoms can include pain or discomfort in one or both arms, back, neck, jaw or stomach. Shortness of breath: With or without discomfort. Other signs: Breaking out in a cold sweat, nausea, or lightheaded. Remember, MINUTES DO MATTER. If you experience any of these heart attack warning signs, call to get immediate medical attention! ?? Smoking can increase your chances of developing chronic health problems and can cause harmful effects to other family members in your house. If you smoke, you are strongly encouraged to quit. Please call [facility] [employer] Link at [phone] or [phone] ([phone]) or log in to [email or web address] for referrals to smoking cessation programs. ?? 730 Suicide & Crisis Lifeline is available 27/04 if you or someone you know needs to find a reason to keep living. By calling 837 you'll be connected to a skilled, trained counselor at a crisis center in your area. INPATIENT DISCHARGE INSTRUCTIONS SIGNATURE PAGE ARGENTIAN PIPER Location:[facility] Registration Date and Time:08/31/2023 23:47 EST Primary Care Physician: Mark Arredondo MD, Attending Physician: Cata Conner MD, I ARGENTINA PIPER, have received the above patient education materials/instructions and have verbalized understanding. If ambulance or transport services are being used I further acknowledge being given a choice of service. ?? If you need to contact me, please call me at this number: . Patient/Complex Director Name: Patient/Complex Director Signature: Relationship to Patient: Witness Name/Signature: Date: * Event Display: Provider Clarification Note Please click on pdf link to open report * Event Display: Provider Clarification Note Please click on pdf link to open report * Event Display: Provider Clarification Note Please click on pdf link to open report * Douglas Rao DO M: MODIFY, MODIFY, MODIFY, MODIFY, MODIFY, MODIFY, MODIFY, PERFORM, MODIFY, MODIFY, MODIFY, MODIFY, MODIFY, MODIFY, MODIFY, MODIFY, MODIFY, MODIFY, MODIFY, MODIFY, MODIFY, MODIFY, MODIFY, MODIFY, MODIFY, MODIFY, MODIFY, MODIFY, MODIFY Cata Conner MD: MODIFY Event Display: Discharge/Transfer Note Hospital Authored Date: Patient: ??ARGENTINA PIPER ? Age:??73 Years?Sex:??Male?:??1950?? Patient Information Discharge Location: [facility] Primary Care Physician: Mark Arredondo MD Admit Date/Time: 08/31/23 23:47 Discharge Disposition Discharge Disposition: [facility] Facility/Rehab Discharge Diagnosis Hypothermia (T68.XXXA) Sepsis (A41.9) Upper GI bleed (K92.2) GERD (gastroesophageal reflux disease) (K21.9) Anemia of chronic disease (D63.8) Acute kidney injury superimposed on CKD (N17.9) Stage III chronic kidney disease (N18.30) History of CVA with residual deficit (I69.30) Cognitive impairment (R41.89) Dysphagia (R13.10) Seizure disorder (G40.909) Schizophrenia (F20.9) Type 2 diabetes mellitus (E11.9) Hypertension (I10) Atrial fibrillation (I48.91) Coronary artery disease (I25.10) CHF (congestive heart failure) (I50.9) Hypothyroidism (E03.9) Chronic obstructive pulmonary disease (J44.9) ?? _ Discharge Medications Acetaminophen (acetaminophen 325 mg oral tablet)?650?Milligram?2?tablet?By Mouth?Every 8 hours?as needed?pain/fever >101F Acetaminophen (Acephen 650 mg rectal suppository)?1?suppository(ies)?650?Milligram?Rectally?Every 8 hours?as needed?pain/fever >101F Amlodipine (amLODIPine 10 mg oral tablet)?10?Milligram?1?tablet?By Mouth?Daily Chuckie Amoxicillin-Clavulanate (Augmentin 875 Tablet)?1?tablet?By Mouth?2 times a day?Last dose to be on 09/10 in PM apixaban (Eliquis 5 mg oral tablet)?1?tab(s)?5?Milligram?By Mouth?2 times a day Atorvastatin (atorvastatin 20 mg oral tablet)?1?tab(s)?20?Milligram?By Mouth?Daily at bedtime Benztropine (benztropine 1 mg oral tablet)?1?Milligram?By Mouth?2 times a day Bisacodyl (bisacodyl 10 mg rectal suppository)?1?suppository(ies)?10?Milligram?Rectally?Every 72 hours?as needed?if no BM in 3 days?if MOMis ineffective Cholecalciferol (cholecalciferol 2000 intl units oral tablet)?1?tab(s)?50?Microgram?By Mouth?Daily in AM Docusate (docusate sodium 100 mg oral capsule)?200?Milligram?2?capsule?By Mouth?Daily in AM Emollients, Topical (Minerin topical cream)?Topically?Daily at bedtime?to bilateral feet Finasteride (finasteride 5 mg oral tablet)?1?tab(s)?5?Milligram?By Mouth?Daily Chuckie Folic Acid (folic acid 1 mg oral tablet)?1?Milligram?1?tablet?By Mouth?Daily in AM Glucagon (Glucagon Emergency Kit for Low Blood Sugar 1 mg injection)?1?Milligram?Intramuscular?Once?as needed?low blood sugar ??<60 or >300 Glucagon (Gvoke HypoPen 1 mg/0.2 mL subcutaneous solution)?1?Milligram?Subcutaneous Injection?Once?as needed?Hypoglycemia Glucose (glucose 40% oral gel)?15?gram?By Mouth?Once?as needed?low blood sugar <60 Glucose (Insta-Glucose 24 g/31 g oral gel)?See Instructions?gel BS <60 with S/S (if resident is able to take by mouth) give glucose 1 tube by mouth - recheck & retreat every 15min until greater than 100 BS Haloperidol (haloperidol decanoate 50 mg/ml injectable solution)?0.5?Milliliter?25?Milligram?Intramuscular?Every 28 days?STARTED 06/02/23 Insulin Lispro (insulin lispro 100 units/mL injectable solution)?2-10 units?Subcutaneous Injection?3 times a day with meals Isosorbide Mononitrate (Imdur 30 mg oral tablet, extended release)?30?Milligram?By Mouth?Daily Lactulose (lactulose 10 gm/15 ml oral syrup)?30?Milliliter?20?gram?By Mouth?Daily levETIRAcetam (levETIRAcetam 100 mg/mL oral solution)?2.5?Milliliter?250?Milligram?By Mouth?2 times a day Levothyroxine (Synthroid 0.1 mg oral tablet)?100?Microgram?By Mouth?Daily Milk of Magnesia (MOM Liquid)?30?Milliliter?By Mouth?Every 72 hours?as needed?if no BM in 3 days Multivitamin (Daily Seema oral tablet)?1?tab(s)?By Mouth?Daily in AM Olanzapine (olanzapine 5 mg oral tablet)?5?Milligram?By Mouth?Daily at bedtime Pantoprazole (pantoprazole 40 mg oral delayed release tablet)?40?Milligram?By Mouth?Daily?Continue until Endoscopy Risperidone (risperiDONE 2 mg oral tablet)?2?Milligram?1?tablet?By Mouth?2 times a day Senna (Senna 8.6 mg oral tablet)?17.2?Milligram?2?tab(s)?By Mouth?Daily?as needed?for constipation Sodium Biphosphate-Sodium Phosphate (Fleet Enema 19 gm-7 gm rectal enema)?1?Each?Rectally?Every 72 hours?as needed?if no BM in 3 days?if suppository is ineffective Sucralfate (Carafate 1 gm oral tablet)?1?gram?1?tablet?By Mouth?3 times a day?6 AM, 12 PM & 5 PMNOT ON PAPER CHART Tamsulosin (tamsulosin 0.4 mg oral capsule)?0.8?Milligram?2?capsule?By Mouth?Daily at bedtime Thiamine (thiamine 100 mg oral tablet)?100?Milligram?By Mouth?Daily ? Medications Started Amoxicillin-Clavulanate (Augmentin 875 Tablet)?1?tablet?By Mouth?2 times a day?Last dose to be on 09/10 in PM Pantoprazole (pantoprazole 40 mg oral delayed release tablet)?40?Milligram?By Mouth?Daily?Continue until Endoscopy Thiamine (thiamine 100 mg oral tablet)?100?Milligram?By Mouth?Daily Medications Discontinued none Doses Changed none PCP Follow-Up/Heads-Up Patient was evaluated for UGIB and hypothermia. GI consulted and patient underwent EGD showing reflux??esophagitis. Hemoglobin has remained stable without need for blood transfusions. High dose PPI started BID and plan for repeat EGD in 8-12 weeks with GI. Hypothermia resolved and adrenal insufficiency ruled out. CXR showing pneumonia, for which pt to complete 7-day course of antibiotics. Also had PELON complicated by obstructive uropathy for which Coker was placed. Renal function improving. ?? - Antibiotics transitioned??to PO Augmentin 875mg BID for 2 days (to complete total of??7-day antibiotic course) - Repeat CBC in one week to evaluate H/H - Continue high dose PPI, Pantoprazole 40mg BID - Follow-up with??GI for??repeat EGD in 8-12 weeks -??Continue folate, thiamine - Voiding trial will??be attempted prior to discharge, Coker to remain in place if fails - Continue finasteride and tamsulosin - BMP within one week - Continue diet with dysphagia mechanically altered level 2/thin liquids, hold PO if lethargic or AMS - Transitioned??back to??PO Keppra 250mg BID Hospital Course 73 y.o male with PMHx of schizophrenia, cognitive impairment, CVA, pAfib (on Eliquis), CAD, CHF, HTN, HLD, PVD, COPD, DM2, CKD IV, hypothyroidism, esophagitis, and GERD, who presented to the hospitalon the morning of 08/31 from the [facility] for concern of nausea with large volume coffee-ground emesis. Found to be hypothermic to 92.4F on arrival for which he was placed on Tasha hugger with good effect, otherwise hemodynamically stable. Admitted for concern of UGIBand possible sepsis with hypothermia of unclear etiology. In the ED he received doses of Ceftriaxone and Flagyl with infectious workup pending. Initial labs showing no leukocytosis, lactic acid WNL (0.7). Initial CXR with no acute abnormality. GI was consulted and he underwent EDG 09/02 showing normal duodenum, hiatal hernia, grade C esophagitis compatible with reflux esophagitis, and EGD biopsies showing gastric antral mucosa with mild reactive gastropathy, also Morrow's esophagus. His hemoglobin remained stable throughout admission without requiring any blood transfusions and he was started on IV pantoprazole 40mg BID with plan to follow-up with GI for repeat EGD in the out-patient setting in 8-12 weeks. Throughout admission he continued to be intermittently hypothermic requiring Tasha hugger with infectious workup ongoing. Procalcitonin negative (0.18), no leukocytosis, and repeat CXR 09/03 with developing consolidation throughout the left lung compatible with pneumonia. Respiratory pathogen panel and atypical pneumonia workup negative. For pneumonia he received a single dose of Vancomycin on 09/04 in addition starting Zosyn (09/04-current). Blood culture and UA negative. On e was noted to be retaining urine, > 800ccs via bladder scan, for which a Coker was placed. Labs showing PELON likely due to obstructive uropathy. Renal function improving with Coker in place and patient to undergo voiding trial prior to discharge. Due to intermittent hypothermia and low AM cortisol to 7.6 on labs 09/07, cosyntropin stimulation testing completed and was normal, thus ruling out adrenal insufficiency. Course complicated by lethargy which improved and patient is now??awake and alert. Lethargy is likely due to infection.??Patient has remained normothermic for greater than 24hrs without requiring Tasha hugger and on the day of discharge pt is hemodynamically stable and medicallycleared for [facility]. ?? Assessment and Plan: ?? Hypothermia (T68.XXXA):??resolved Sepsis (A41.9):??resolved Acute Metabolic Encephalopathy (G93.41): improving Intermittently hypothermic requiring Tasha??hugger with good effect Etiology unclear, initially thought to be??2/2 sepsis, however, no leukocytosis, lactic??acid WNL (0.7), and procalcitonin negative (0.18) Initial CXR 08/31??with no acute abnormality,??repeat 09/03 with developing consolidation throughout the left lung compatible with??pneumonia Respiratory pathogen panel and atypical??pneumonia workup negative Received single dose??Vancomycin 09/04 and started on Zosyn (09/04-09/08) On 09/07 pt was lethargic, AM cortisol??09/07 low at 7.6 (@6am), Cosyntropin stimulation testing normal, ruling out primary adrenal insufficiency as potential cause for hypothermia, unlikely to be catatonia, unlikely to be seizure, Acute metabolic encephalopathy and hypothermia were likely due to infe ction ?? Recommendations: - Transition to PO Augmentin 875mg BID for 2 days (to complete total of??7-day antibiotic course) (last dose is 09/10) ?? Upper GI bleed (K92.2): resolved?? GERD (K21.9): Anemia of chronic disease (D63.8) Presented??for??nausea and coffee ground emesis GI evaluated patient EGD obtained 09/02 showing normal duodenum, hiatal hernia, grade C esophagitis compatible with reflux esophagitis, which could be cause of hematemesis. EGD??biopsies??showing gastric antral mucosa with mild reactive gastropathy, also Morrow's esophagus?? Hgb has remained??stable without need for blood transfusions No acute signs of bleeding ?? Recommendations: - Repeat CBC in one week to evaluate H/H - Continue high dose PPI, Pantoprazole 40mg BID upon discharged -??Continue folate, thiamine upon discharge - Follow-up with??GI for??repeat EGD in 8-12 weeks ?? Acute kidney injury superimposed on CKD (N17.9): improving Stage III chronic kidney disease (N18.30):?? History of BPH Pt??noted to be retaining??> 800ccs on??bladder scan 09/05, for which Coker was placed Renal function gradually improving ?? Recommendations: - Voiding trial prior to discharge, Coker to remain in place if fails and urology follow up will beneeded if voiding trial fails - Continue home finasteride and tamsulosin on discharge - BMP within one week ?? History of CVA with residual deficit (I69.30):?? Cognitive impairment (R41.89): Dysphagia (R13.10):?? Seizure Disorder (784.909): Pt oriented to self only Intermittently refusing labs, vitals, and medications Repeat ST eval 09/08 with diet upgrade to dysphagia mechanically altered level 2/thin liquids, hold PO if lethargic or AMS ?? Recommendations: - Continue diet with dysphagia mechanically altered level 2/thin liquids, hold PO if lethargic or AMS -??Continue home??PO Keppra 250mg BID ?? Chronic??obstructive pulmonary??disease??(J44.9):?? Pt increasingly somnolent on 09/07 morning but arousable to voice/sternal rub Maintaining O2 sat in low-mid 90s on RA Bicarb elevated during admission, possible respiratory acidosis in setting of known pulmonary disease Pt now awake and alert ?? Recommendations: - pt not on Albuterol outpatient, can consider starting PRN Albuterol outpatient ?? Chronic, stable, resolved medical conditions Schizophrenia (F20.9):??Continue home meds including benztropine, Risperidone, and olanzapine Hypothyroidism (E03.9):??Continue levothyroxine Hypertension (I10):??Continue??amlodipine CHF (congestive heart failure) (I50.9), Coronary artery disease (I25.10):?? Continue Imdur, amlodipine Paroxysmal atrial fibrillation (I48.0):??Continue Eliquis Type 2 Diabetes mellitus??(E11.9):??Continue home insulin regimen Objective Vital Signs?? Temperature: 98.4 DegF (09/08/23 07:00:00) Temperature Route: Oral (09/08/23 07:00:00) Pulse Rate: 67 bpm (09/08/23 07:00:00) Respiratory Rate: 18 br/min (09/08/23 07:00:00) Systolic Blood Pressure:??144 mm Hg??High (09/08/23 08:50:00) Diastolic Blood Pressure: 64 mm Hg (09/08/23 08:50:00) Blood pressure sites: Arm, right (09/08/23 07:00:00) Pulse Pressure: 80 mm Hg (09/08/23 07:00:00) Oxygen Saturation:??93 %??Low (09/08/23 07:00:00) Mode of Delivery (Oxygen): Room air (09/08/23 07:00:00) Early Warning Score: 5 (09/08/23 08:50:44) ? . Physical Exam Constitutional:??Alert, resting comfortably??in NAD Mental Status: Oriented to person only. Head: Normocephalic. Ear, Nose and Throat: Mucous membranes moist. Trachea midline. Respiratory: Clear to auscultation throughout. No rales or rhonchi. Cardiovascular:??RRR, normal S1 S2,??No murmurs, rubs or gallops. No peripheral edema. Gastrointestinal: Abdomen soft, non-tender, non-distended. Normal bowel sounds. Genitourinary: Coker catheter in place with clear yellow urine collecting Neurologic:?? No focal neurological deficits.??Moves all extremities spontaneously. Skin: No rashes or lesions. Musculoskeletal: No gross deformities. Psych: Normal mood and affect ?? Surgical Procedures Gastroscopy (EGD) Diagnostic 09/02/2023 10:57 [facility] G[facility] Pending Results Add On Lab Order ordered on 08/31/2023 Add On Lab Order ordered on 09/02/2023 Add On Lab Order ordered on 09/04/2023 Blood Culture ordered on 09/03/2023 Blood Culture #2 ordered on 09/04/2023 Blood Gas Venous ordered on 09/07/2023 CBC ordered on 09/06/2023 Comprehensive Metabolic Panel ordered on 09/06/2023 Cortisol Level ordered on 09/04/2023 Magnesium Level ordered on 09/06/2023 Phosphorus Level ordered on 09/06/2023 Sputum Culture w/ Gram Smear ordered on 09/04/2023 Patient Education Titles Anemia, Type Not Specified (Adult)?? Discharge Instructions for Acute Kidney Injury?? Follow-Up Appointments Added Follow Up ?Time Frame ?Comments Arnulfo PRADO, Mark?1-2 day: call to discuss follow up visit Patient Instructions You came to the hospital due to??dark bloody emesis.?? You underwent??endoscopy??which showed findings of esophagitis. ??Will discharge you on Pantoprazole 40mg BID which should be taken until you obtain endoscopy outpatient. Please follow up with endoscopy in 8 to 12 weeks. You also were found to have pneumonia and we will prescribe you?? 2 more days of antibiotics (Augmentin 875mg twice daily with last dose on 09/08 in the PM) This will complete 7 day course. Your hypothermia is likely not dueto cortisol deficiency and not due pneumonia. Please follow up with your PCP within 1 week to obtain outpatient labs. Post Discharge Care Diet: ??Dysphagia Mech Altered (Level 2) Diet ?? Activity: ??Ambulate with assistance 3 times a day unless otherwise specified ?? Code Status: ??Full Resuscitation ?? Condition: ??fair ?? Prognosis: ??Fair ?? Home Health Face to Face ^[facility]Health[facility] Results Discharge Labs BACTERIOLOGY MRSA PCR Result Negative, MRSA target DNA not detected. ()?? 09/04/2023 14:55 S Aureus ??PCR Result Negative, SA target DNA not detected. ()?? 09/04/2023 14:55 ?? BLOOD BANK Blood Type O Positive ()?? 08/31/2023 10:37 Antibody Screen Negative ()?? 08/31/2023 10:37 ?? BLOOD COUNT & DIFF WBC 7.8 k/mm3 ()?? 09/07/2023 01:12 RBC 2.81 m/mm3 (Low)?? 09/07/2023 01:12 Hgb 7.9 Gm/dL (Low)?? 09/07/2023 01:12 Hct 25.8 % (Low)?? 09/07/2023 01:12 MCV 91.8 femtoliters ()?? 09/07/2023 01:12 MCH 28.1 pg ()?? 09/07/2023 01:12 MCHC 30.6 g/dL (Low)?? 09/07/2023 01:12 Platelet Count 145 k/mm3 (Low)?? 09/07/2023 01:12 RDW-SD 58.9 femtoliters (High)?? 09/07/2023 01:12 MPV 11.3 femtoliters ()?? 09/07/2023 01:12 Nucleated RBC (Automated) 0.0 #/100 WBC'S ()?? 09/07/2023 01:12 Abs. NRBC 0.0 k/mm3 ()?? 09/07/2023 01:12 Abs. Neut 5.3 k/mm3 ()?? 09/06/2023 11:25 Abs. Lymph 1.8 k/mm3 ()?? 09/06/2023 11:25 Abs. Upson 0.7 k/mm3 ()?? 09/06/2023 11:25 Abs. Eo 0.2 k/mm3 ()?? 09/06/2023 11:25 Abs. Baso 0.0 k/mm3 ()?? 09/06/2023 11:25 Neut % 65.3 % ()?? 09/06/2023 11:25 Lymph % 21.8 % ()?? 09/06/2023 11:25 Upson % 9.0 % ()?? 09/06/2023 11:25 Eos % 2.6 % ()?? 09/06/2023 11:25 Baso % 0.2 % ()?? 09/06/2023 11:25 Imm Gran 1.1 % ()?? 09/06/2023 11:25 Abs. Imm Gran 0.1 k/mm3 ()?? 09/06/2023 11:25 ?? BLOOD GAS pH, Venous 7.41 ()?? 09/07/2023 14:02 ? CARDIAC CK, Total 82 units/L ()?? 08/31/2023 11:02 High Sensitivity Troponin (HSTnT) 37 ng/L (High)?? 08/31/2023 20:41 ?? CHEM GENERAL Sodium 142 mmol/L ()?? 09/07/2023 01:12 Potassium 4.1 mmol/L ()?? 09/07/2023 01:12 Chloride 105 mmol/L ()?? 09/07/2023 01:12 Bicarbonate Level 27 mmol/L ()?? 09/07/2023 01:12 Anion Gap 10 ()?? 09/07/2023 01:12 Glucose Level 168 mg/dL (High)?? 09/07/2023 01:12 Glucose, POC 146 mg/dL (High)?? 09/08/2023 07:41 BUN 45 mg/dL (High)?? 09/07/2023 01:12 Creatinine-Blood 3.0 mg/dL (High)?? 09/07/2023 01:12 Estimated GFR Creatinine 21 ML/MIN/1.73 M2 ()?? 09/07/2023 01:12 Calcium 8.6 mg/dL ()?? 09/07/2023 01:12 Calcium, Ionized pH Corrected 1.26 mmol/L ()?? 08/31/2023 20:41 Phosphorus 2.5 mg/dL ()?? 09/07/2023 01:12 Magnesium 1.8 mg/dL ()?? 09/07/2023 01:12 Protein, Total 6.4 Gm/dL ()?? 09/07/2023 01:12 Albumin 3.1 Gm/dL (Low)?? 09/07/2023 01:12 AG Ratio 0.9 ()?? 09/07/2023 01:12 Alkaline Phosphatase 184 units/L (High)?? 09/07/2023 01:12 Lipase 42 units/L ()?? 08/31/2023 11:02 AST (SGOT) 13 units/L ()?? 09/07/2023 01:12 ALT (SGPT) 11 units/L ()?? 09/07/2023 01:12 Bilirubin, Total 0.2 mg/dL ()?? 09/07/2023 01:12 Lactate 0.7 mmol/L ()?? 08/31/2023 20:41 ? COAG INR 1.0 ()?? 08/31/2023 20:41 Protime (PT) 11.1 seconds ()?? 08/31/2023 20:41 APTT 32.5 seconds ()?? 08/31/2023 20:41 ? ENDOCRINE/TUMOR MARKER TSH 7.51 uIU/mL (High)?? 09/01/2023 09:50 Free T4 1.03 ng/dL ()?? 09/01/2023 09:50 T3, Free 1.8 pg/mL (Low)?? 09/02/2023 05:48 Cortisol Level 7.6 ??g/dL ()?? 09/07/2023 06:05 Cortisol 30 Min Post 19.6 ??g/dL ()?? 09/07/2023 14:02 Cortisol 60 Min Post 20.5 ??g/dL ()?? 09/07/2023 14:41 ?? MISC. CHEMISTRY Procalcitonin 0.18 ng/mL ()?? 09/03/2023 06:47 ? SEROLOGY INF DISEASE Legionella pneumophila Antigen NEGATIVE ()?? 09/04/2023 18:14 S. Pneumococcus Urinary Ag NEGATIVE ()?? 09/04/2023 18:14 ?? UA/URINALYSIS Appear/Color, Urine LIGHT YELLOW ()?? 09/04/2023 18:14 Specific [place], Urine 1.018 ()?? 09/04/2023 18:14 pH, Urine 6.0 ()?? 09/04/2023 18:14 Albumin, Urine 2+ (Abnormal)?? 09/04/2023 18:14 Glucose, Urine NEGATIVE ()?? 09/04/2023 18:14 Ketones, Urine NEGATIVE ()?? 09/04/2023 18:14 Bilirubin, Urine NEGATIVE ()?? 09/04/2023 18:14 Hemoglobin, Urine NEGATIVE ()?? 09/04/2023 18:14 Nitrite, Urine NEGATIVE ()?? 09/04/2023 18:14 Leukocyte, Urine NEGATIVE ()?? 09/04/2023 18:14 Urobilinogen NORMAL mg/dL ()?? 09/04/2023 18:14 WBC's, Urine <1 /HPF ()?? 09/04/2023 18:14 RBC's, Urine <1 /HPF ()?? 09/04/2023 18:14 Hold Urine Culture Testing available 48 hours from time of collection. ()?? 08/31/2023 18:01 ?? VIROLOGY Influenza A PCR NEGATIVE ()?? 08/31/2023 20:25 Influenza B PCR NEGATIVE ()?? 08/31/2023 20:25 RSV PCR NEGATIVE ()?? 08/31/2023 20:25 Adenovirus by PCR NEGATIVE ()?? 09/04/2023 11:31 Coronavirus 229E by PCR (not COVID-19) NEGATIVE ()?? 09/04/2023 11:31 Coronavirus HKU1 by PCR (not COVID-19) NEGATIVE ()?? 09/04/2023 11:31 Coronavirus NL63 by PCR (not COVID-19) NEGATIVE ()?? 09/04/2023 11:31 Coronavirus OC43 by PCR (not COVID-19) NEGATIVE ()?? 09/04/2023 11:31 Human Metapneumovirus by PCR NEGATIVE ()?? 09/04/2023 11:31 Rhinovirus/Enterovirus by PCR NEGATIVE ()?? 09/04/2023 11:31 Influenza A by PCR NEGATIVE ()?? 09/04/2023 11:31 Influenza B by PCR NEGATIVE ()?? 09/04/2023 11:31 Parainfluenza 1 by PCR NEGATIVE ()?? 09/04/2023 11:31 Parainfluenza 2 by PCR NEGATIVE ()?? 09/04/2023 11:31 Parainfluenza 3 by PCR NEGATIVE ()?? 09/04/2023 11:31 Parainfluenza 4 by PCR NEGATIVE ()?? 09/04/2023 11:31 RSV by PCR NEGATIVE ()?? 09/04/2023 11:31 Bordetella Pertussis by PCR NEGATIVE ()?? 09/04/2023 11:31 Chlamydophila Pneumoniae by PCR NEGATIVE ()?? 09/04/2023 11:31 Mycoplasma Pneumoniae by PCR NEGATIVE ()?? 09/04/2023 11:31 COVID-19 PCR Specimen Source NASAL ()?? 08/31/2023 20:25 COVID-19 PCR Result NEGATIVE ()?? 08/31/2023 20:25 COVID-19 (SARS-CoV-2) by PCR NEGATIVE ()?? 09/04/2023 11:31 Bordetella Parapertussis by PCR NEGATIVE ()?? 09/04/2023 11:31 ?? Imaging ?? Reason For Exam Sepsis;Other: ?? RESULT: CT Abdomen and Pelvis W/O Contrast CT Abdomen and Pelvis W/O Contrast? Reason: Other:; Sepsis; Clinical Question(s): Other:; r o colitis(stool), hydronephrosis; Special Instructions: CAN BE DONE ON THE WAY TO THE FLOOR; Order Comment: ?? TECHNIQUE: Spiral CT through the abdomen and pelvis without IV contrast formatted in 3 planes. Thisstudy was performed without oral contrast. Weight- based protocol using automatic tube modulation was used to optimize exposure parameters.? CTDIvol Body: 18.57 mGy, ??DLP Body: 1101 mGy*cm. ? COMPARISON: 05/28/2023 ?? FINDINGS:? Tag Press Operator View Findings, Lines and Tubes: None. ?? Visualized Chest: Areas of groundglass opacity with septal thickening. Trace right pleural effusion. Small hiatal hernia. The heart is normal in size. No pericardial effusion. ?? Diaphragm: Normal. ?? Liver: Normal. ?? Gallbladder: No CT evidence of gallbladder pathology. ?? Bile ducts: No biliary ductal dilation. ?? Spleen: Normal. ?? Pancreas: Normal. ?? Adrenal glands: Normal. ?? Kidneys and ureters: No hydronephrosis, or noncontrast evidence of suspicious masses. Multiple cysts within the right kidney. 3 mm nonobstructing stone within the midpole of the right kidney. ?? Bladder: There is mild bladder wall thickening likely due to under distention. ?? Reproductive organs: Unremarkable. ?? Stomach, small bowel, and large bowel: There is moderate amount of stool throughout the colon. There are a few scattered diverticula within the descending, and sigmoid colon. ?? Appendix: Normal. ?? Peritoneum and retroperitoneum: No ascites or pneumoperitoneum. No omental or mesenteric lesions. ?? Lymph nodes: No enlarged lymph nodes. ?? Blood vessels: Normal. No aneurysm. ?? Abdominal and pelvic wall: Unremarkable. ?? Bones: No acute abnormality. ?? IMPRESSION:? Trace right pleural effusion. Bibasilar atelectasis. Volume overload. Few scattered diverticula within the sigmoid colon without definite evidence of diverticulitis. No evidence of colitis. ? Note??completed with assistance??by Medical Student. Douglas Solares, MS4 ?? Pt seen and discussed with Attending Dr. Conner ?? Douglas Rao,??DO PGY-2 Internal Medicine Pager [phone]/ cortext? 45 minutes spent on discharge * Cata Conner MD: PERFORM Event Display: Discharge/Transfer Note Hospital Authored Date: [id number] Attending Attestation:??This note was completed with the aid of a medical student and resident.?I personally have seen and evaluated this patient. I have discussed the case and its management withthe medical student and??resident and agree with the findings and plan as documented in note exceptwhere modified. Patient had not voided by 5p, bladder scan 180, will continue voiding trial with bladder scans q6. May require coker replacement/ urology fu. As??home facility is unable to perform voiding trial willkeep tonight and plan for discharge tomorrow, will need to confirm that facility can manage coker if he ends up needing it replaced. ?? Cata Conner MD * Douglas Rao DO: PERFORM Event Display: Patient Education Leaflets Authored Date: [id number] Anemia, Type Not Specified (Adult) ?? [id number] Anemia, Type Not Specified (Adult) Red blood cells carry oxygen to the tissues of your body. Anemia is a condition in which you have too few red blood cells. You need iron to make red blood cells. The most common cause of anemia is not having enough iron. This may be because of: ??? Loss of blood. This can be caused by heavy menstrual periods. It can also be caused by bleedingfrom the stomach or intestines. ??? Major surgery or physical trauma ? Certain medicines or treatments, such as chemotherapy ??? Not??eating enough foods that contain iron. Other causes of anemia include certain vitamin deficiencies, chronic kidney disease, and other chronic illnesses. Anemia makes you feel tired and run down. When anemia becomes severe, your skin becomes pale. You may feel short of breath or have chest pain after physical activity. Other symptoms include: ??? Headaches ??? Chest pain or shortness of breath ??? Fast or irregular heartbeat ??? Pounding orwhooshing in your ears ??? Dizziness ??? Leg cramps with physical activity ??? Drowsiness Home care Follow these guidelines when caring for yourself at home: ??? Don???t overexert yourself. ??? Eat foods rich in iron, such as beef, poultry, fish, dark green leafy vegetables, legumes, and nuts. ??? Talk with your healthcare provider before traveling by air or to high altitudes. ?? Follow-up care Follow up with your healthcare provider, or as advised. You may need other blood tests to find out the exact cause of your anemia. If you had testing done today, it may take several days to get all of the results. You can follow up with your provider to get the results. ?? Call 911 Call 911 if any of the following occur: ??? Shortness of breath or chest pain ??? Dizziness or fainting ??? Vomiting blood or passing red- or black-colored stool ?? Last Reviewed Date: 2021 ?? [id number] [employer]. All rights reserved. This information is not intended as a substitute for professional medical care. Always follow your healthcare professional's instructions. ?? * Douglas Rao DO: PERFORM Event Display: Patient Education Leaflets Authored Date: [id number] Discharge Instructions for Acute Kidney Injury ?? 03068 Discharge Instructions for Acute Kidney Injury You have been diagnosed with acute kidney injury. This means that you have had a sudden episode of kidney failure or damage that causes your kidneys not to work correctly. When both kidneys are healthy, they help filter out fluid and waste from the blood and body.??Acute kidney injury has many causes. These include urinary blockages, infection, lack of enough blood supply, and medicines that can injure??kidneys. In some cases, acute kidney injury is short-term (temporary). This type lasts several days to a few months. This is because the kidney can repair itself. Acute kidney injury can also result in chronic kidney disease or end stage renal failure. Here are some directions for you to follow as you recover. Home care ??? Follow any directions for eating and drinking given to you by your healthcare provider. o Drink less fluid, if directed by your healthcare provider. o Keep a record of everything you eat and drink. ??? Measure the amount of urine and stool you have each day. ??? Weigh yourself every day, at the same time of day, and in the same kind of clothes. Keep a daily record of your daily weights. ??? Take your temperature every day. Keep a record of the results. ??? Learn to take your own blood pressure (BP). Your healthcare provider can teach you how to correctly measure your BP. Keep a record of your results. Bring the record to your follow-up appointments. Ask your healthcare provider when you should seek emergency medical attention. Your provider will tell you what blood pressure reading is dangerous. ??? Stay away from people who have infections. This includes people with colds, bronchitis, or skin conditions. ??? Practice good personal??hygiene. Wash your hands often. This is especially important if you have a catheter in place when you leave the hospital. Doing so helps keep you safe from infection. ??? Take your medicines exactly as directed. ??? You may need frequent blood and urine tests. These are done to keep track of your kidney function. ?? Follow-up care Follow up with your healthcare provider, or as advised. ?? When to call your healthcare provider Call your??healthcare provider??right away if any of the following occur: ??? Signs of bladder infection, such as urinating more often, burning or pain when you pee, pain above your pubic bone, bloodin your urine, or trouble starting your urine stream ??? Signs of infection around your catheter, such as redness, swelling, warmth, or fluid leaking ??? Rapid weight loss or weight gain, such as 3??pounds or more in 24 hours or 6 pounds or more in 7 days ??? Fever above 100.4?? F ( 38??C ) or as directed by your healthcare provider ??? Chills ??? Muscle aches ??? Night sweats ??? Very little or no urine output ??? Swelling of your hands, legs, or feet ??? Back pain ??? Abdominal (belly) pain ??? Extreme tiredness ?? Last Reviewed Date: 2022 ?? [employer]. All rights reserved. This information is not intended as a substitute for professional medical care. Always follow your healthcare professional's instructions. ?? Consult note * Harshal Sharma MD: PERFORM, MODIFY, MODIFY Event Display: Consultation Note Authored Date: [id number] Patient: ??ARGENTINA PIPER ? Age:??73 Years?Sex:??Male?:??1950?? Referrring Provider Not on Staff, Referring Claudia Javier MD Chief Complaint Coffee ground emesis Reason for Consultation Upper GI bleed History of Present Illness 73-year-old man with history of schizophrenia, cognitive impairment, atrial fibrillation on Eliquis,??CAD not on anti-platelets, CVA, HTN, HLD, DM, hypothyroidism, PVD, CKD IV, COPD, GERD, esophagitis, BPH, and chronic constipation who we are asked to see for upper GI bleed. ?? Patient is a limited historian. History??obtained from chart review and from his HCP daughter, Bonny.??Patient presented from his facility yesterday for alleged??large volume coffee ground emesis. None??witnessed here.??Per daughter Bonny, no prior history of GI bleed. No known NSAID use. No heavy alcohol use. No prior EGD. No known colonoscopy. No family history of GI cancer. No history of tobacco use.? He is hypothermic otherwise vitally stable.??Hemoglobin is 9.6 from 8.2 earlier this month (baseline 7 to 9). MCV 89. Platelet 214. INR 1.0. BUN 54. Creatinine 2.8. LFTs normal. CT abdomen showed trace pleural effusion, volume overload, sigmoid diverticulosis. Patient is NPO and on IV PPI BID.?? Review of Systems ROS per HPI Physical Exam Vitals & Measurements T:??94.0?F?? TMIN:??92.4?F?? TMAX:??97.5?F?? HR:??67??(Peripheral)?? RR:??19?? BP:??143/71?? SpO2:??95%?? General:??Mumbling incoherently, no acute distress HEENT:??Moist mucus membranes. Anicteric sclera Respiratory:??on room air. Not dyspneic Cardiovascular:??Normal rate, regular rhythm, no murmurs?? GI/Abdomen:??Abd soft, non-tender, non-distended. ANNIKA: Light brown stool Extremities:??No edema. No clubbing or cyanosis. Skin:??No jaundice. No rash Neurologic:??Confused, moving extremities Psychiatric:??No suicidal ideation, calm Assessment/Plan Assessment:??73-year-old man with history of cognitive impairment, atrial fibrillation on eliquis, CAD not on anti-platelets, CVA, HTN, HLD, DM, hypothyroidism, PVD, CKD IV, COPD, GERD, esophagitis, BPH, depression, schizophrenia, and chronic constipation who presents from his facility with allegedlarge volume coffee ground emesis. ?? Coffee ground emesis No hematemesis witnessed here, digital rectal exam shows light brown stool, and hemoglobin is baseline. Patient has never had an EGD though and his daughter Bonny is adamant on endoscopic evaluation.Differential includes esophagitis, gastritis, duodenitis, peptic ulcer disase, dieulafoy lesion, AVM, malignancy, etc. ?? Recommendations: -EGD tomorrow -NPO after MN -IV pantoprazole 40 mg twice daily -Monitor H&H; keep hemoglobin above 7 -Monitor for hemodynamic instability ?? Plan discussed with primary team.?? Patient discussed with??attending physician?Jag ?? Harshal Sharma MD?? Gastroenterology Fellow - PGY 5 ?? Problem List/Past Medical History Ongoing Atrial fibrillation CHF (congestive heart failure) Coronary artery disease Dementia Dysphagia History of CVA with residual deficit Hypertension Schizophrenia Stage III chronic kidney disease Type 2 diabetes mellitus Medications Inpatient Acetaminophen Tablet, 650 mg, By Mouth, Every 4 hours, PRN amLODIPine 10 mg oral tablet, 10 mg, By Mouth, Daily in AM atorvastatin 20 mg oral tablet, 20 mg, By Mouth, Daily at bedtime benztropine 1 mg oral tablet, 1 mg, By Mouth, 2 times a day Bisacodyl Supp, 10 mg= 1 supp, Rectally, Daily, PRN Dextrose 50% Inj Syringe (25Gm), 12.5 Gm, IV Push Slowly, Every 20 minutes, PRN Dextrose 50% Inj Syringe (25Gm), 25 Gm, IV Push Slowly, Every 15 minutes, PRN docusate sodium 100 mg oral capsule, 200 mg= 2 capsule, By Mouth, Daily in AM Docusate Sodium Capsule, 100 mg= 1 capsule, By Mouth, 2 times a day, PRN Duoneb Inhalation Solution, 1 vials, BAND Nebulizer, Every 4 hours, PRN finasteride 5 mg oral tablet, 5 mg, By Mouth, Daily in AM folic acid 1 mg oral tablet, 1 mg, By Mouth, Daily in AM Folic Acid Inj, 1 mg= 0.2 mL, IV Push Slowly, Daily Glucagon Inj, 1 mg, Intramuscular, Once, PRN Glucose Gel, 15 Gm, By Mouth, Every 20 minutes, PRN Glucose Gel, 30 Gm, By Mouth, Every 20 minutes, PRN hydrALAZINE Inj, 5 mg= 0.25 mL, IV Push Slowly, Every 4 hours, PRN Imdur 30 mg oral tablet, extended release, 30 mg, By Mouth, Daily Insulin LISPRO Sliding Scale, 2-10 units, Subcutaneous Injection, Every 6 hours Keppra Inj, 250 mg, IV Push Slowly, Every 12 hours Melatonin Tablet, 3 mg, By Mouth, Daily at bedtime, PRN MiraLax Powder, 17 Gm= 1 pack/packet, By Mouth, Daily, PRN Multivitamin Tablet, 1 tablet, By Mouth, Daily NaCL 0.9% Flush, 3 mL, IV Push, Every 8 hours NaCL 0.9% Flush, 3 mL, IV Push, Every 8 hours, PRN Olanzapine Inj, 5 mg, Intramuscular, 2 times a day, PRN Pantoprazole Inj, 40 mg, IV Push Slowly, Every 12 hours risperiDONE 1 mg oral tablet, 2 mg, By Mouth, 2 times a day Robitussin DM Liquid, 10 mL, By Mouth, Every 4 hours, PRN Senna Tablet, 8.6 mg= 1 tablet, By Mouth, 2 times a day, PRN Simethicone Tablet, 80 mg, Chew, 3 times a day, PRN Synthroid 0.1 mg oral tablet, 100 mcg, By Mouth, Daily tamsulosin 0.4 mg oral capsule, 0.8 mg, By Mouth, Daily at bedtime Thiamine Inj, 100 mg= 1 mL, IV Push Slowly, Daily Tylenol Supp, 975 mg, Rectally, Every 6 hours, PRN Home Acephen 650 mg rectal suppository, 650 mg= 1 supp, Rectally, Every 8 hours, PRN acetaminophen 325 mg oral tablet, 650 mg, By Mouth, Every 4 hours, PRN acetaminophen 325 mg oral tablet, 650 mg= 2 tablet, By Mouth, Every 8 hours, PRN amLODIPine 10 mg oral tablet, 10 mg= 1 tablet, By Mouth, Daily in AM amLODIPine 10 mg oral tablet, 10 mg= 1 tablet, By Mouth, Daily apixaban, 5 mg, By Mouth, 2 times a day atorvastatin 20 mg oral tablet, 20 mg= 1 tablet, By Mouth, Daily at bedtime benztropine 1 mg oral tablet, 1 mg, By Mouth, 2 times a day benztropine 1 mg oral tablet, 1 mg= 1 tablet, By Mouth, 2 times a day bisacodyl 10 mg rectal suppository, 10 mg= 1 supp, Rectally, Every 72 hours, PRN Carafate 1 gm oral tablet, 1 Gm= 1 tablet, By Mouth, 3 times a day Carafate 1 gm oral tablet, 1 Gm= 1 tablet, By Mouth, 3 times a day before meals cholecalciferol 2000 intl units oral tablet, 50 mcg= 1 tablet, By Mouth, Daily in AM Daily Seema oral tablet, 1 tablet, By Mouth, Daily in AM docusate sodium 100 mg oral capsule, 200 mg= 2 capsule, By Mouth, Daily in AM Docusate Sodium Capsule, 100 mg= 1 capsule, By Mouth, 2 times a day Eliquis 5 mg oral tablet, 5 mg= 1 tablet, By Mouth, 2 times a day finasteride 5 mg oral tablet, 5 mg= 1 tablet, By Mouth, Daily in AM finasteride 5 mg oral tablet, 5 mg= 1 tablet, By Mouth, Daily in AM Fleet Enema 19 gm-7 gm rectal enema, 1 each, Rectally, Every 72 hours, PRN folic acid 1 mg oral tablet, 1 mg= 1 tablet, By Mouth, Daily in AM folic acid 1 mg oral tablet, 1 mg= 1 tablet, By Mouth, Daily in AM Glucagon Emergency Kit for Low Blood Sugar 1 mg injection, 1 mg, Intramuscular, Once, PRN glucose 40% oral gel, 15 Gm, By Mouth, Once, PRN Gvoke HypoPen 1 mg/0.2 mL subcutaneous solution, 1 mg, Subcutaneous Injection, Once, PRN haloperidol 5 mg oral tablet, 5 mg= 1 tablet, By Mouth, Daily in AM haloperidol decanoate 50 mg/ml injectable solution, 25 mg= 0.5 mL, Intramuscular, Every 28 days Humulin R human recombinant 100 u/ml injectable injection, 2-10 units, Subcutaneous Injection, 3 times a day before meals Imdur 30 mg oral tablet, extended release, 30 mg, By Mouth, Daily Insta-Glucose 24 g/31 g oral gel, See Instructions insulin isophane human recombinant 100 u/ml subcutaneous injection, 10 units, Subcutaneous Injection, 2 times a day insulin lispro 100 units/mL injectable solution, 2-10 units, Subcutaneous Injection, Every 4 hours isosorbide mononitrate 30 mg oral tablet, extended release, 30 mg= 1 tablet, By Mouth, Daily in AM Keppra 250 mg oral tablet, 250 mg= 1 tablet, By Mouth, 2 times a day Lipitor 20 mg oral tablet, 20 mg, By Mouth, Daily at bedtime MiraLax oral powder for reconstitution, 17 Gm, By Mouth, Daily, PRN MiraLax oral powder for reconstitution, 17 Gm, By Mouth, Daily MOM Liquid, 30 mL, By Mouth, Every 72 hours, PRN Multivitamin, 1 tablet, By Mouth, Daily in AM olanzapine 5 mg oral tablet, 5 mg, By Mouth, Daily at bedtime olanzapine 5 mg oral tablet, 5 mg= 1 tablet, By Mouth, Daily at bedtime pantoprazole 40 mg oral delayed release tablet, 40 mg= 1 tablet, By Mouth, Daily risperiDONE 1 mg oral tablet, 3 mg, By Mouth, Daily at bedtime risperiDONE 1 mg oral tablet, 2 mg, By Mouth, Daily in AM risperiDONE 2 mg oral tablet, 2 mg= 1 tablet, By Mouth, Daily in AM risperiDONE 3 mg oral tablet, 3 mg= 1 tablet, By Mouth, Daily at bedtime Senna 8.6 mg oral tablet, 17.2 mg= 2 tablet, By Mouth, Daily, PRN Senna 8.6 mg oral tablet, 17.2 mg= 2 tablet, By Mouth, Daily, PRN Skin Prep Pads, Topically, 3 times a day Synthroid 0.1 mg oral tablet, 100 mcg, By Mouth, Daily tamsulosin 0.4 mg oral capsule, 0.8 mg, By Mouth, Daily tamsulosin 0.4 mg oral capsule, 0.8 mg= 2 capsule, By Mouth, Daily at bedtime Vitamin D3 2000 intl units oral capsule, 50 mcg= 1 capsule, By Mouth, Daily in AM Allergies NKA Lab Results Test Name Test Result Date/Time WBC 8.3 k/mm3 08/31/2023 20:41 EST Hgb 9.2 Gm/dL 08/31/2023 20:41 EST Platelet Count 214 k/mm3 08/31/2023 20:41 EST Sodium 144 mmol/L 08/31/2023 20:41 EST Potassium 5.8 mmol/L 08/31/2023 20:41 EST Glucose Level 78 mg/dL 08/31/2023 20:41 EST BUN 54 mg/dL 08/31/2023 20:41 EST Creatinine-Blood 2.8 mg/dL 08/31/2023 20:41 EST Estimated GFR Creatinine 23 ML/MIN/1.73 M2 08/31/2023 20:41 EST * Jag PRADO, Al Jc: PERFORM Event Display: Consultation Note Authored Date: [id number] I have reviewed the patient's medical history, findings on examination, diagnosis and treatment plan as documented in the fellow note. Case and its management discussed with fellow. ?? Patient seen and evaluated independently on the day of the consultation, case discussed over the phone with patient's healthcare proxy, discussed pros and cons of conservative management vs endoscopyand she eventually opted for endoscopy, tentatively scheduled for the morning ?? Will continue to follow-up with you Patient Care team information Care Team Personnel Name: Mary Carmen Camara RN Position: [facility] RN Member Role: Primary Care Nurse Name: Jessica Brown RN Position: [facility] RN Member Role: Primary Care Nurse Name: Nevaeh Escamilal RN Position: [facility] RN Member Role: Primary Care Nurse Name: Corwin Rosas RN Position: [facility] RN Member Role: Primary Care Nurse Name: Dhruv Christopher RN Position: [facility] RN Member Role: Primary Care Nurse Name: Dameon Tubbs RN Position: [facility] RN Member Role: Primary Care Nurse Name: Monica Camp RN Position: [facility] RN Member Role: Primary Care Nurse Name: Isaiah Hurt RN Position: [facility] RN Member Role: Primary Care Nurse Name: Torito Nicole RN Position: [facility] RN Member Role: Primary Care Nurse Name: Fatimah Greco RN Position: [facility] RN Member Role: Primary Care Nurse Name: Ibis Vogel RN Position: S RN Member Role: Primary Care Nurse Name: Kellee Solis RN Position: S RN Member Role: Primary Care Nurse Name: Rody Bianchi RN Position: [facility] RN Member Role: Primary Care Nurse Name: Emma Mcgee Position: [facility] RN Member Role: Primary Care Nurse Name: Apoorva Abel RN Position: [facility] RN Member Role: Primary Care Nurse Name: Yamileth Rivera MD Position: [facility] Renal MD Member Role: Lifetime Consulting Physician Address: Address: [address] [place] [address] [facility] [place] [address]- Name: Yosi Greer RN Position: [facility] RN Member Role: Primary Care Nurse Name: Marly Cochran RN Position: [facility] RN Member Role: Primary Care Nurse Name: Trinity Machado LPN Position: [facility] RN Member Role: Primary Care Nurse Name: Rosa Francis RN Position: [facility] RN Member Role: Primary Care Nurse Name: Ketan Bolanos MD Position: [facility] Renal MD Member Role: Lifetime Consulting Physician Address: Address: [address] [place] [address] [address] [facility] [place] [address]- Name: Mark Arredondo MD Position: [facility] Outreach Member Role: PCP Address: Address: [address] [place] [address] [place] [address]- [place] Name: Neri Solo RN Position: [facility] RN Member Role: Primary Care Nurse Name: Luca Leslie RN Position: [facility] RN Member Role: Primary Care Nurse Name: Sharita Thomas RN Position: [facility] RN Member Role: Primary Care Nurse Name: Maria Teresa Howell RN Position: [facility] RN Member Role: Primary Care Nurse Name: Suzan Arriaga RN Position: [facility] RN Member Role: Primary Care Nurse Name: Will Polo MD Position: [facility] Renal MD Member Role: Lifetime Consulting Physician Address: Address: [address] [place] [address] [facility] [place] [address]- [place] Name: Janice Yadav RN Position: [facility] RN Member Role: Primary Care Nurse Name: Deanna Kingsley LPN Position: [facility] RN Member Role: Primary Care Nurse Name: Juan Pablo Monteiro RN Position: [facility] RN Member Role: Primary Care Nurse Name: Sandie Kwok RN Position: [facility] RN Member Role: Primary Care Nurse Name: Jamila CONTEH Attending Position: [facility] ED Medicine MD Name: Channing Kamara RN Position: [facility] RN Member Role: Patient Care Provider Name: Ashley Menendez RN Position: [facility] ED RN W/OE and Tasks Member Role: Patient Care Provider Name: Kimmy Goodman Position: [facility] ED OA Charge Member Role: ED Associate Name: Argentina Cuevas Position: [facility] ED TA [facility] Member Role: Learning Engineer
--- OUTSIDE RECORDS SUMMARY | 2024-06-14 12:02 | XMS_ITS | Continuity of Care Document ---
Author Organization [facility] ter Address [address] [place] [address]- Care Team Providers Care Blueprinting Machine Operator Name Role Phone Not on Staff, PCP Primary Care Physician Unavail able Encounter [facility] Date(s): 01/25/24 - 02/25/[address] [address]- Attending Physician: Emilia PRADO, Kiki Admitting Physician: Emilia PRADO, Kiki Allergies, Adverse Reactions, Alerts No Known Allergies [...] Condition Confirmation Course Effective Dates Status H ealt Status Informant Acute hypoxic respiratory failure Confirmed [...] Team Personnel Name: Janice Escamilla RN Position: [facility] RN Member Role: Primary Care Nurse Name: Mary Carmen Camara RN Position: [facility] RN Member Role: Primary Care Nurse Name: Mayra Ron RN Position: [facility] RN Member Role: Primary Care Nurse Name: Tammy Sheriff RN Position: [facility] RN Member Role: Primary Care Nurse Name: Corwin Rosas RN Position: [facility] RN Member Role: Primary Care Nurse Name: Rishabh Barrera RN Position: [facility] RN Member Role: Primary Care Nurse Name: Dhruv Christopher RN Position: [facility] RN [place] Member Role: Primary Care Nurse Name: Leann Forbes RN Position: [facility] RN Member Role: Primary Care Nurse Name: Ebony Bolanos RN Position: [facility] RN Member Role: Primary Care Nurse Name: Monica Camp RN Position: [facility] RN Member Role: Primary Care Nurse Name: Isaiah Hurt RN Position: [facility] RN Member Role: Primary Care Nurse Name: Torito Nicole RN Position: [facility] RN Member Role: Primary Care Nurse Name: Fatmiah Greco RN Position: [facility] RN Member Role: Primary Care Nurse Name: Tanya Love RN Position: [facility] RN Member Role: Primary Care Nurse Name: Ibis Vogel RN Position: [facility] RN Member Role: Primary Care Nurse Name: Mayra Maloney RN Position: [facility] RN Member Role: Primary Care Nurse Name: Kellee Solis RN Position: [facility] RN Member Role: Primary Care Nurse Name: Adore Pike RN Position: [facility] RN Member Role: Primary Care Nurse Name: Rody Bianchi RN Position: [facility] RN Member Role: Primary Care Nurse Name: Emma Mcgee Position: [facility] RN Member Role: Primary Care Nurse Name: Yamileth Rivera MD Position: [facility] Renal MD Member Role: Lifetime Consulting Physician Address: Address: [address] [place] [address] [facility] [place] [address]- Name: Marly Cochran RN Position: S RN Member Role: Primary Care Nurse Name: Not on Staff, PCP Position: [facility] Physician (General Medicine) Member Role: PCP Name: Trinity Machado LPN Position: S RN Member Role: Primary Care Nurse Name: Jill Wilson RN Position: S RN Member Role: Primary Care Nurse Name: Rosa Francis RN Position: S RN Member Role: Primary Care Nurse Name: Ketan Bolanos MD Position: [facility] Renal MD Member Role: Lifetime Consulting Physician Address: Address: [address] [place] [address] [facility] [place] [address]- Name: Neri Solo RN Position: S RN Member Role: Primary Care Nurse Name: Sharita Thomas RN Position: [facility] RN Member Role: Primary Care Nurse Name: Suzan Arriaga RN Position: [facility] RN Member Role: Primary Care Nurse Name: Will Polo MD Position: [facility] Renal MD Member Role: Lifetime Consulting Physician Address: Address: [address] [place] [address] [facility] [address] Name: Donna Echavarria RN Position: [facility] RN Member Role: Primary Care Nurse Name: [...] S RN Member Role: Primary Care Nurse Care Team Related Persons Name: MALIHA CALVO Address: home [address] [place] [address] Name: JOE PIPER Address: home [address] [place] [address]
--- OUTSIDE RECORDS SUMMARY | 2024-06-14 12:02 | XMS_ITS | Continuity of Care Document ---
Author Organization [facility] ter Address [address] [place] [id number]- Care Team Providers Care Necktie Maker Name Role Phone Not on Staff, PCP Primary Care Physician Unavail able Encounter [facility] [place](s[place] 03/06/24 - 03/07/[address] [id number]- Encounter Diagnosis Urinary retention(Final) - 03/06/24 Discharge Disposition: A-Transfer SNF Attending Physician: Oliva Ramirez MD Admitting Physician: Kings Meehan MD Referring Physician: Not on Staff, Referring MD Allergies, Adverse Reactions, Alerts No Known Allergies Immunizations Given and Recorded Vaccine Date Status Refusal Reason influenza virus vaccine, inactivated 08/06/21 Perez rded influenza virus vaccine, inactivated 08/09/18 Perez rded SARS-CoV-2 (COVID-19) Ad26 vaccine 06/21/21 Record ed SARS-CoV-2 (COVID-19) Ad26 vaccine 06/21/21 Record ed Medications acetaminophen 325 mg oral tablet 650 mg, 2, tablet, By Mouth, 3 times a day, PRN, Refills 0, Maintenance, as needed for pain/ fever,03/07/24 12:52:00 EDT, Partial fill upon patient request if the prescription is for a schedule II opioid drug. Start Date: 03/07/24 Status: Ordered acetaminophen 650 mg rectal suppository 1 supp = 650 mg, Rectally, 3 times a day, PRN for fever/ pain, # 12 supp, 0 Refills, Maintenance, 03/07/24 12:52:00 EDT, Suppository, Partial fill upon patient request if the prescription is for a schedule II opioid drug. Start Date: 03/07/24 Status: Ordered amLODIPine 10 mg oral tablet [...] opioid drug. Start Date: 08/11/23 Status: Ordered Gvoke PFS 0.5 mg/0.1 mL subcutaneous solution 0.1 mL = 0.5 mg, Subcutaneous Injection, Once, 0 Refills, Maintenance, 03/07/24 12:53:00 EDT, Solution, Partial fill upon patient request if the prescription is for a schedule II opioid drug. Start Date: 03/07/24 Status: Ordered haloperidol decanoate 50 mg/ml injectable [...] Ordered Insta-Glucose 24 g/31 g oral gel 0 Refills, Maintenance, 03/07/24 12:40:00 EDT, Partial fill upon patient request if the prescription is for a schedule II opioid drug. Start Date: 03/07/24 Status: Ordered insulin lispro 100 u/ml subcutaneous injection 2-10 units, Subcutaneous Injection, 3 times a day before meals, 0 Refills, Maintenance, 03/07/24 11:39:00 EDT, Injection, Partial fill upon patient request if the prescription is for a schedule II opioid drug. Start Date: 03/07/24 Status: Ordered lactulose 10 gm/15 ml oral [...] Status: Ordered tamsulosin 0.4 mg oral capsule 0.4 mg, 1, capsule, By Mouth, Daily at bedtime, Refills [...] Type 2 diabetes mellitus Confirmed Active Results Radiology Reports * Exam Date Time Procedure Performing Provider Status 03/07/24 10:[address] Head/Brain W/O Contrast Sherrie Blanco ly; Auth (Verified) Notes: (CT Head/Brain W/O Contrast) Reason For Exam: confusion;Other: RESULT: CT Head/Brain W/O Contrast CT Head/Brain W/O Contrast INDICATION: Reason: confusion; Clinical Question(s): Infarction TECHNIQUE: Noncontrast head CT using axial technique and reconstructed in axial and coronal planes.Iterative reconstruction techniques are used to optimize dose and image quality. CTDIvol Head: 46.60 mGy, DLP Head: 772 mGy*cm. COMPARISON: Multiple priors, most recent CT head 11/17/2023, MRI brain 07/24/2023. FINDINGS: Last Picker view findings, lines and tubes: None. BRAIN AND EXTRA-AXIAL SPACES: No parenchymal hemorrhage, midline shift, or mass effect. Zapata-white matter differentiation is wellpreserved. No acute infarct. Negative insular ribbon sign. Atherosclerotic vascular calcification of the carotid arteries but negative hyperdense vessel sign. Mild prominence of the ventricles and sulci consistent with parenchymal volume loss. Mild low-density white matter changes. No subarachnoid hemorrhage. No subdural or epidural collection. CALVARIUM, SKULL BASE, AND SOFT TISSUES: No fractures or suspicious bony lesions. Moderate mucosal thickening of the maxillary and ethmoid sinuses. Small air- fluid level within the right maxillary sinus. Trace left mastoid effusion. The right mastoid air cells are clear. Visualized orbits and globes are intact. The extracranial soft tissues are unremarkable. IMPRESSION: No acute intracranial pathology. Sinus disease. I have personally reviewed the images and I agree with this report. WSN: [id number] Ordering Physician: Eduardo Jones Dictated By: Elly Romero MD Dictated Date/Time: 03/07/24 11:20 a Reviewed By: Kera Diaz MD Signed By: Kera Diaz MD Signed Date/Time: 03/07/24 11:25 am Transcribed By: CHERELLE Transcribed Date/Time: 03/07/24 10:52 am * Exam Date Time Procedure Performing Provider Status 03/07/24 6:21 AM Chest Portable Bryanna Billings; Auth (Verified) Notes: (Chest Portable) Reason For Exam: hypothermia;Other: RESULT: Chest Portable Chest Portable Reason: Other:; hypothermia; Clinical Question(s): Pneumonia COMPARISON: Multiple prior chest radiographs most recently 02/13/2024. FINDINGS: LINES AND TUBES: None. LUNGS AND PLEURA: Low lung volumes with mild basilar atelectasis. Obscuration of the of the left hemidiaphragm. No significant pulmonary vascular congestion. No significant pleural effusion. No pneumothorax. HEART, MEDIASTINUM AND IGNACIO: Heart is at the upper limits of normal for size. Normal mediastinal and hilar contour. BONES AND SOFT TISSUES: No acute abnormality. IMPRESSION: 1. Low lung volumes with bibasilar atelectasis. 2. Obscuration the of the left hemidiaphragm, most likely related to atelectasis/consolidation and may be accentuated due to patient positioning. WSN: [id number] Ordering Physician: Eduardo Jones Dictated By: Harris Reyes MD Dictated Date/Time: 03/07/24 10:02 a Reviewed By: Harris Reyes MD Signed By: Harris Reyes MD Signed Date/Time: 03/07/24 10:02 am Transcribed By: CHERELLE Transcribed Date/Time: 03/07/24 9:55 am Vital Signs Most recent to oldest [Reference Range]: 1 2 3 Height 173 cm (03/07/24 2:03 PM) 173 cm (03/06/24 11:52 PM) Weight 87.2 kg (03/07/24 4:00 AM) 85.1 kg (03/06/24 11:52 PM) Oxygen Saturation [94-100 %] 100 % (03/07/24 2:03 PM) 97 % (03/07/24 12:00 PM) 94 % (03/07/24 10:00 AM) Pulse Rate [55-90 bpm] 97 bpm *H* (03/07/24 2:03 PM) 98 bpm *H* (03/07/24 12:00 PM) 62 bpm (03/07/24 8:00 AM) Body Mass Index [18.5-24.99 kg/m2] 28.43 kg/m2 *H* (03/06/24 11:52 PM) Blood Pressure [90-138/55-84 mm Hg] 104/53mm Hg (03/07/24 2:03 PM) 110/60mm Hg (03/07/24 12:00 PM) 121/69mm Hg (03/07/24 10:00 AM) Respiratory Rate [16-30 br/min] 18 br/min (03/07/24 2:03 PM) 17 br/min (03/07/24 12:00 PM) 9 br/min *L* (03/07/24 10:00 AM) Temperature [96.8-100.4 DegF] 97.2 DegF (03/07/24 2:03 PM) 95.1 DegF *L* (03/07/24 12:00 PM) 97.1 DegF (03/07/24 8:00 AM) Mode of Delivery (Oxygen) Room air (03/07/24 2:03 PM) Room air (03/07/24 12:00 PM) Room air (03/07/24 10:00 AM) Blood pressure sites Arm, left (03/07/24 2:03 PM) Arm, left (03/07/24 12:00 PM) Arm, left (03/07/24 10:00 AM) Temperature Route Oral (03/07/24 2:03 PM) Rectal (03/07/24 12:00 PM) Rectal (03/07/24 8:00 AM) Dry Weight 85.1 kg (03/06/24 11:52 PM) Social History Social History Type Response Sex Male History and physical note * Eduardo Jones MD: PERFORM Event Display: History and Physical Hospital Authored Date: Patient: ??ARGENTINA GARRETT ? Age:??73 Years?Sex:??Male?:??1950?? Chief Complaint/Reason for Consultation BIBA from [facility] due to urinary retention for 8 hours. [facility] staff attempted SC and failed due to resistance. 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 Dementia at baseline. C/o abd discomfort. History of Present Illness 73-year-old??male??presented to the ER from his long-term care facility??with concerns for urinary retention. ??Apparently the patient had been??indicating some abdominal discomfort in the suprapubicarea.?? He has a history of urinary retention in the past??as well as BPH.?? He also has a complicated past medical history including a CVA with left hemiparesis,??schizophrenia, seizure disorder, dementia.?? On arrival to the ER??a Coker catheter was attempted??but unsuccessful.?? Eventually, urology were consulted and placed a Coker catheter. ??Apparently he had some hematuria??likely after theinstrumentation??or initial traumatic Coker placement.?? Unfortunately during my interview the patient is somewhat drowsy as it is early in the morning and he did receive fentanyl earlier.?? However he is arousable??and??responds to commands by squeezing my hands. ??He says a few words but??is??clearly confused.?? He is unable to provide any further history.?? He is currently resting comfortably and has a Coker catheter in situ.?? Additionally,??he was found to be hypothermic with a temperatureof 91.2.?? Consequently he was started on a warming blanket and his temperature is gradually normalized.?? Going back through his records on previous occasions he has had episodes of hypothermia. Review of Systems Patient unable to answer due to confusion Objective Measurements?? Height: 173 cm (03/06/24) Weight: 87.2 kg (03/07/24) Dry Weight: 85.1 kg (03/06/24) Body Mass Index:??28.43 kg/m2??High (03/06/24) ? Vital Signs?? Temperature: 97.5 DegF (03/07/24 06:00:00) Temperature Route: Rectal (03/07/24 06:00:00) Normothermic Measures: Sav hugger off (03/07/24 06:00:00) Pulse Rate: 70 bpm (03/07/24 04:00:00) Heart Rate Monitored: 65 bpm (03/07/24 06:00:00) Respiratory Rate: 22 br/min (03/07/24 06:00:00) Systolic Blood Pressure: 105 mm Hg (03/07/24 06:00:00) Diastolic Blood Pressure: 60 mm Hg (03/07/24 06:00:00) Blood pressure sites: Arm, left (03/07/24 04:00:00) Mean Arterial Pressure: 81 mm Hg (03/06/24 23:52:00) Pulse Pressure: 45 mm Hg (03/07/24 06:00:00) Oxygen Saturation: 97 % (03/07/24 06:00:00) Mode of Delivery (Oxygen): Room air (03/07/24 06:00:00) Early Warning Score: 5 (03/07/24 06:24:26) ? Physical Exam Constitutional: arousable but drowsy Mental Status: not??Oriented to person, place and time. Head: Normocephalic. Eyes: Pupils are equal, round and reactive to light. Extraocular muscles intact. Ear, Nose and Throat: Oropharynx clear, mucous membranes moist.?? Neck: Supple, Full range of motion. Respiratory: Clear to auscultation. No wheezing, rales or rhonchi. Cardiovascular: S1 S2 regular. No murmurs, rubs or gallops. Gastrointestinal: Abdomen soft, non-tender, non-distended. Normal bowel sounds. Neurologic: Cranial nerves II-XII grossly intact.??Power 5/5??left upper extremity,??5/5 right upper extremity,??4/5??right lower extremity,??4/5 left lower extremity Skin: Stage II??coccyx wound Musculoskeletal: No cyanosis or clubbing. No gross deformities. Normal range of motion. Psychiatric: drowsy Assessment/Plan Urinary retention (R33.9):? As noted above??the patient presented with??urinary retention Initial attempts to place Coker catheter were unsuccessful Urology were consulted and a Coker catheter was placed in the ER He did have some hematuria which was likely secondary to trauma Continue to monitor for??hematuria/clots Not to remove??Coker catheter unless??discussed with urology Continue finasteride and tamsulosin ?? Hypothermia (T68.XXXA):? It appears he has presented with hypothermia in the past Concern for underlying??infectious process Check chest x-ray,??UA, blood cultures Start broad-spectrum antibiotics including vancomycin and Zosyn Await??infectious workup and check procalcitonin If negative can likely stop??antibiotics Continue warming blanket until normothermic Admit to intermediate care Check TSH level ?? Encephalopathy (G93.40):? Likely??at baseline per previous notes??although unclear Possibly??worsened by underlying hypothermia??urinary retention and possible infection He is drowsy this morning??so we will hold risperidone Check CT head ?? Hypertension (I10):? Continue??Norvasc ?? Atrial fibrillation (I48.91):? Hold Eliquis this morning and monitor for hematuria If??improved can restart Eliquis this afternoon ?? Decubitus ulcer of coccyx (L89.159):? Wound care consult ?? Seizure disorder (G40.909):? Continue??Keppra ?? Schizophrenia (F20.9):??. Anxiety and depression (F41.9):? Holding risperidone as above Restart this afternoon if more alert Continue benztropine ?? Diabetes (E11.9):? Continue Lantus Sliding scale Hypoglycemic measures as needed ?? VTE Prophylaxis:? Restart Eliquis if hematuria limited Pneumatic compression boots ?VTE Prophylaxis Assessment:??VTE Prophylaxis Ordered? Code Status:? Presumed full code I attempted to call the patient's to??guardians as listed in [facility]??but was unable to get through Please call again later this morning ?Order Code Status:??Code Status Ordered ? Patient seen 03/07/2024 Histories Allergies Allergies ?(Active and Proposed Allergies Only) NKA? (Severity: Unknown severity, Onset: Unknown) ? 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 Social History Lives in long-term care facility Non-smoker No alcohol ?? Family History Patient unable to answer due to confusion ?? Medications Home Medications Acetaminophen (Acephen 650 mg rectal suppository)?1?suppository(ies)?650?Milligram?Rectally?Every 8 hours?as needed?Pain , Mild, Fever >101 Amlodipine (amLODIPine 10 mg oral tablet)?10?Milligram?1?tablet?By Mouth?Daily Chuckie apixaban (Eliquis 5 mg oral tablet)?1?tab(s)?5?Milligram?By Mouth?2 times a day Atorvastatin (atorvastatin 20 mg oral tablet)?1?tab(s)?20?Milligram?By Mouth?Daily at bedtime Benztropine (benztropine 1 mg oral tablet)?1?Milligram?By Mouth?2 times a day Cholecalciferol (cholecalciferol 2000 intl units oral tablet)?1?tab(s)?50?Microgram?By Mouth?Daily in AM Ferrous Sulfate (ferrous sulfate 325 mg oral enteric coated tablet)?325?Milligram?By Mouth?Every other day Finasteride (finasteride 5 mg oral tablet)?1?tab(s)?5?Milligram?By Mouth?Daily Chuckie Folic Acid (folic acid 1 mg oral tablet)?1?Milligram?1?tablet?By Mouth?Daily in AM Haloperidol (haloperidol decanoate 50 mg/ml injectable solution)?0.5?Milliliter?25?Milligram?Intramuscular?Every 28 days?STARTED 06/02/23 Insulin Glargine (Lantus Inj)?0.04?Milliliter?4?unit(s)?Subcutaneous Injection?Daily at bedtime Insulin Lispro (insulin lispro 100 units/mL injectable solution)?2-10 units?Subcutaneous Injection?2 times a day with meals?Inject morning & evening as per sliding scale:150-200=2 [id number]=1 [id number]=9 [id number]- 350=8 [id number]=9 unitscall MD if <70 or >400 Isosorbide Mononitrate (Imdur 30 mg oral tablet, extended release)?1?tablet?By Mouth?Daily in AM Lactulose (lactulose 10 gm/15 ml oral syrup)?45?Milliliter?30?gram?By Mouth?Dailyin AM levETIRAcetam (levETIRAcetam 100 mg/mL oral solution)?2.5?Milliliter?250?Milligram?By Mouth?2 times a day Levothyroxine (Synthroid 0.1 mg oral tablet)?100?Microgram?By Mouth?Daily Multivitamin (Daily Seema oral tablet)?1?tab(s)?By Mouth?Daily in AM Pantoprazole (pantoprazole 40 mg oral delayed release tablet)?1?tab(s)?40?Milligram?By Mouth?2 times a day Risperidone (risperiDONE 2 mg oral tablet)?2?Milligram?1?tablet?By Mouth?2 times a day Senna (Senna 8.6 mg oral tablet)?17.2?Milligram?2?tab(s)?By Mouth?Daily?as needed?for constipation Sucralfate (Carafate 1 gm oral tablet)?1?gram?1?tablet?By Mouth?3 times a day?6 AM, 12 PM & 5 PMNOT ON PAPER CHART Tamsulosin (tamsulosin 0.4 mg oral capsule)?0.8?Milligram?2?capsule?By Mouth?Daily at bedtime Thiamine (thiamine 100 mg oral tablet)?100?Milligram?1?tablet?By Mouth?Daily in AM ? Results Recent Labs BLOOD COUNT & DIFF WBC 6.8 k/mm3 ()?? 03/07/2024 06:17 RBC 3.03 m/mm3 (Low)?? 03/07/2024 06:17 Hgb 8.2 Gm/dL (Low)?? 03/07/2024 06:17 Hct 25.8 % (Low)?? 03/07/2024 06:17 MCV 85.1 femtoliters ()?? 03/07/2024 06:17 MCH 27.1 pg ()?? 03/07/2024 06:17 MCHC 31.8 g/dL (Low)?? 03/07/2024 06:17 Platelet Count 181 k/mm3 ()?? 03/07/2024 06:17 RDW-SD 60.4 femtoliters (High)?? 03/07/2024 06:17 MPV 10.1 femtoliters ()?? 03/07/2024 06:17 Nucleated RBC (Automated) 0.9 #/100 WBC'S ()?? 03/07/2024 06:17 Abs. NRBC 0.1 k/mm3 ()?? 03/07/2024 06:17 Abs. Neut 4.8 k/mm3 ()?? 03/07/2024 06:17 Abs. Lymph 1.2 k/mm3 ()?? 03/07/2024 06:17 Abs. Crane 0.6 k/mm3 ()?? 03/07/2024 06:17 Abs. Eo 0.2 k/mm3 ()?? 03/07/2024 06:17 Abs. Baso 0.0 k/mm3 ()?? 03/07/2024 06:17 Neut % 70.1 % ()?? 03/07/2024 06:17 Lymph % 17.7 % ()?? 03/07/2024 06:17 Crane % 8.4 % ()?? 03/07/2024 06:17 Eos % 2.8 % ()?? 03/07/2024 06:17 Baso % 0.3 % ()?? 03/07/2024 06:17 Imm Gran 0.7 % ()?? 03/07/2024 06:17 Abs. Imm Gran 0.1 k/mm3 ()?? 03/07/2024 06:17 ?? CHEM GENERAL Sodium 134 mmol/L ()?? 03/06/2024 22:16 Potassium HEMOLYZED mmol/L ()?? 03/06/2024 22:16 Chloride 102 mmol/L ()?? 03/06/2024 22:16 Bicarbonate Level 21 mmol/L (Low)?? 03/06/2024 22:16 Anion Gap 11 ()?? 03/06/2024 22:16 Glucose Level 229 mg/dL (High)?? 03/06/2024 18:54 Glucose, POC 130 mg/dL (High)?? 03/07/2024 05:21 BUN 33 mg/dL (High)?? 03/06/2024 18:54 Creatinine-Blood 2.17 mg/dL (High)?? 03/06/2024 18:54 Estimated GFR Creatinine 31 ML/MIN/1.73 M2 ()?? 03/06/2024 18:54 Calcium 9.1 mg/dL ()?? 03/06/2024 18:54 ?? URINE OTHER Est Creatinine Clearance 28.56 mL/min ()?? 03/07/2024 00:05 ? EKG study * Event Display: ECG 12-Lead Authored Date: Please click on pdf link to open report * Event Display: ECG 12-Lead Authored Date: Ventricular Rate: 64 BPM Atrial Rate: 64 BPM P-R Interval: 176 ms QRS Duration: 86 ms Q-T Interval: 398 ms QTC Calculation(Bazett): 410 ms P [place]: 23 degrees R [place]: -12 degrees T [place]: 14 degrees Normal sinus rhythm Normal ECG When compared with ECG of 13-FEB-2024 12:26, Premature atrial complexes are no longer Present QT has shortened Confirmed by LAI DALE ([id number]) on 03/07/2024 8:10:23 AM [place]: LAI DALE Cardiology * Event Display: Cardiac Rhythm Strips Authored Date: Hospital Progress note * Kell Ferreira: PERFORM Event Display: Progress Note Hospital Authored Date: Patient: ??ARGENTINA GARRETT ? Age:??73 Years?Sex:??Male?:??1950?? Subjective Patient is s/p urethral dilation and placement of coker catheter yesterday.?? Urine is clear.?? Patient has no complaints.? Review of Systems Constitutional:?? No fever or chills Respiratory:?? No shortness of breath, cough, or wheezing Cardiovascular:?? No chest pain or palpitations Gastrointestinal:?? No abdominal pain, nausea, or vomiting Genitourinary:?? Coker in place Objective Vital Signs?? Temperature: 97.1 DegF (03/07/24 08:00:00) Temperature Route: Rectal (03/07/24 08:00:00) Normothermic Measures: Sva hugger off (03/07/24 06:00:00) Pulse Rate: 62 bpm (03/07/24 08:00:00) Heart Rate Monitored: 65 bpm (03/07/24 06:00:00) Respiratory Rate:??12 br/min??Low (03/07/24 08:00:00) Systolic Blood Pressure: 122 mm Hg (03/07/24 08:00:00) Diastolic Blood Pressure: 65 mm Hg (03/07/24 08:00:00) Blood pressure sites: Arm, left (03/07/24 04:00:00) Mean Arterial Pressure: 81 mm Hg (03/06/24 23:52:00) Pulse Pressure: 57 mm Hg (03/07/24 08:00:00) Oxygen Saturation:??93 %??Low (03/07/24 08:00:00) Mode of Delivery (Oxygen): Room air (03/07/24 08:00:00) Early Warning Score: 4 (03/07/24 08:07:49) ? Intake/Output? 03/06 22:02 03/07 07:00 03/06 07:00 03/05 07:00 03/04 07:00 ?? 03/07 09:38 03/07 09:38 03/07 06:59 03/06 06:59 03/05 06:59 Intake ?0 ?0 ?0 ?0 ?0 Output ?300 ?0 ?300 ?0 ?0 Net Total ? -300 ?0 ? -300 ?0 ?0 ? Physical Exam Constitutional: Alert, in no distress. Head: Normocephalic. Respiratory: Non-labored breathing Cardiovascular: Regular rate Gastrointestinal: Abdomen soft, non-tender, non-distended.?? No pulsatile mass. Genitourinary: No costovertebral angle tenderness. Coker catheter draining clear yellow urine Skin: Warm, no pallor _ Home Medications Acetaminophen (Acephen 650 mg rectal suppository)?1?suppository(ies)?650?Milligram?Rectally?Every 8 hours?as needed?Pain , Mild, Fever >101 Amlodipine (amLODIPine 10 mg oral tablet)?10?Milligram?1?tablet?By Mouth?Daily Chuckie Amoxicillin-Clavulanate (Augmentin 500 Tablet)?1?tablet?By Mouth?2 times a day apixaban (Eliquis 5 mg oral tablet)?1?tab(s)?5?Milligram?By Mouth?2 times a day Atorvastatin (atorvastatin 20 mg oral tablet)?1?tab(s)?20?Milligram?By Mouth?Daily at bedtime Benztropine (benztropine 1 mg oral tablet)?1?Milligram?By Mouth?2 times a day Bisacodyl (Dulcolax 10 mg rectal suppository)?1?suppository(ies)?10?Milligram?Rectall y?Daily?as needed?as needed for constipation Cholecalciferol (cholecalciferol 2000 intl units oral tablet)?1?tab(s)?50?Microgram?By Mouth?Daily in AM Emollients, Topical (Minerin topical cream)?Topically?Daily at bedtime?to bilateral feet Ferrous Sulfate (ferrous sulfate 325 mg oral enteric coated tablet)?325?Milligram?By Mouth?Every other day Finasteride (finasteride 5 mg oral tablet)?1?tab(s)?5?Milligram?By Mouth?Daily Chuckie Folic Acid (folic acid 1 mg oral tablet)?1?Milligram?1?tablet?By Mouth?Daily in AM Glucagon (Gvoke HypoPen 1 mg/0.2 mL subcutaneous solution)?1?Milligram?Subcutaneous Injection?Once?as needed?Hypoglycemia Glucose (Insta-Glucose 24 g/31 g oral gel)?See Instructions?gel BS <60 with S/S (if resident is able to take by mouth) give glucose 1 tube by mouth - recheck & retreat every 15min until greater than 100 BS Guaifenesin (guaiFENesin 100 mg/5 mL oral liquid)?20?Milliliter?400?Milligram?By Mouth?2 times a day?as needed?for cough?for 7?Days Haloperidol (haloperidol decanoate 50 mg/ml injectable solution)?0.5?Milliliter?25?Milligram?Intramuscular?Every 28 days?STARTED 06/02/23 Insulin Glargine (Lantus Inj)?0.04?Milliliter?4?unit(s)?Subcutaneous Injection?Daily at bedtime Insulin Lispro (insulin lispro 100 units/mL injectable solution)?2-10 units?Subcutaneous Injection?2 times a day with meals?Inject morning & evening as per sliding scale:150-200=2 [id number]=0 [id number]=2 [id number]- 350=8 [id number]=6 unitscall MD if <70 or >400 Isosorbide Mononitrate (Imdur 30 mg oral tablet, extended release)?1?tablet?By Mouth?Daily in AM Lactulose (lactulose 10 gm/15 ml oral syrup)?45?Milliliter?30?gram?By Mouth?Dailyin AM levETIRAcetam (levETIRAcetam 100 mg/mL oral solution)?2.5?Milliliter?250?Milligram?By Mouth?2 times a day Levothyroxine (Synthroid 0.1 mg oral tablet)?100?Microgram?By Mouth?Daily Multivitamin (Daily Seema oral tablet)?1?tab(s)?By Mouth?Daily in AM Pantoprazole (pantoprazole 40 mg oral delayed release tablet)?1?tab(s)?40?Milligram?By Mouth?2 times a day Risperidone (risperiDONE 2 mg oral tablet)?2?Milligram?1?tablet?By Mouth?2 times a day Senna (Senna 8.6 mg oral tablet)?17.2?Milligram?2?tab(s)?By Mouth?Daily?as needed?for constipation Sucralfate (Carafate 1 gm oral tablet)?1?gram?1?tablet?By Mouth?3 times a day?6 AM, 12 PM & 5 PMNOT ON PAPER CHART Tamsulosin (tamsulosin 0.4 mg oral capsule)?0.8?Milligram?2?capsule?By Mouth?Daily at bedtime Thiamine (thiamine 100 mg oral tablet)?100?Milligram?1?tablet?By Mouth?Daily in AM ? Inpatient Medications Medications (24) Active SCHEDULED: (12) Atorvastatin 20 mg Tablet (Lipitor 20 mg oral tablet) ??20 mg, By Mouth, Daily at bedtime Benztropine 1 mg Tablet (benztropine 1 mg oral tablet) ??1 mg, By Mouth, 2 times a day Ferrous Sulfate 325 mg EC Tablet (ferrous sulfate 325 mg oral enteric coated tablet) ??325 mg, By Mouth, Daily Finasteride 5 mg Tablet (finasteride 5 mg oral tablet) ??5 mg, By Mouth, Daily Insulin Glargine 100 units/mL Inj (Insulin Glargine Inj) ??4 units 0.04 mL, Subcutaneous Injection,Daily at bedtime Insulin Lispro 100 units/mL Inj (Insulin LISPRO Sliding Scale) ??2-10 units, Subcutaneous Injection, 3 times a day before meals Isosorbide Mononitrate 30 mg ER Tablet (Imdur 30 mg oral tablet, extended release) ??30 mg, By Mouth, Daily Levetiracetam 250 mg Tablet (Keppra 250 mg oral tablet) ??250 mg, By Mouth, 2 times a day Levothyroxine 100 mcg Tablet (levothyroxine 0.1 mg oral tablet) ??100 mcg, By Mouth, Daily NaCl 0.9% Flush 3ml (NaCL 0.9% Flush) ??3 mL, IV Push, Every 8 hours Pantoprazole 40 mg EC Tablet (pantoprazole 40 mg oral delayed release tablet) ??40 mg, By Mouth, 2 times a day Tamsulosin 0.4 mg Capsule (tamsulosin 0.4 mg oral capsule) ??0.4 mg, By Mouth, Daily CONTINUOUS: (0) PRN: (12) Acetaminophen 325 mg Tablet (Acetaminophen Tablet) ??650 mg, By Mouth, Every 4 hours Dextrose Inj [...] ??30 Gm, By Mouth, Every 20 minutes Melatonin 3 mg Tablet (Melatonin Tablet) ??3 mg, By Mouth, Daily at bedtime NaCl 0.9% Flush 3ml (NaCL 0.9% Flush) ??3 mL, IV Push, Every 8 hours Polyethylene Glycol 17 Gm Powder (MiraLax Powder) ??17 Gm 1 pack/packet, By Mouth, Daily Senna Tablet ??8.6 mg 1 tablet, By Mouth, 2 times a day Simethicone 80 mg Chewable Tablet (Simethicone Tablet) ??80 mg, Chew, 3 times a day ? 72 Hour Antibiotic History Stopped Antibiotics Stop Date/Time Last Administered First Administered Piperacillin-Tazobactam??3.375 Gm, 25 mL/hr, IVPB, Every 8 hours 03/07/2024 08:04 03/07/2024 06:18 03/07/2024 06:18 ? Results Recent Labs BLOOD COUNT & DIFF WBC 6.8 k/mm3 ()?? 03/07/2024 06:17 RBC 3.03 m/mm3 (Low)?? 03/07/2024 06:17 Hgb 8.2 Gm/dL (Low)?? 03/07/2024 06:17 Hct 25.8 % (Low)?? 03/07/2024 06:17 MCV 85.1 femtoliters ()?? 03/07/2024 06:17 MCH 27.1 pg ()?? 03/07/2024 06:17 MCHC 31.8 g/dL (Low)?? 03/07/2024 06:17 Platelet Count 181 k/mm3 ()?? 03/07/2024 06:17 RDW-SD 60.4 femtoliters (High)?? 03/07/2024 06:17 MPV 10.1 femtoliters ()?? 03/07/2024 06:17 Nucleated RBC (Automated) 0.9 #/100 WBC'S ()?? 03/07/2024 06:17 Abs. NRBC 0.1 k/mm3 ()?? 03/07/2024 06:17 Abs. Neut 4.8 k/mm3 ()?? 03/07/2024 06:17 Abs. Lymph 1.2 k/mm3 ()?? 03/07/2024 06:17 Abs. Crane 0.6 k/mm3 ()?? 03/07/2024 06:17 Abs. Eo 0.2 k/mm3 ()?? 03/07/2024 06:17 Abs. Baso 0.0 k/mm3 ()?? 03/07/2024 06:17 Neut % 70.1 % ()?? 03/07/2024 06:17 Lymph % 17.7 % ()?? 03/07/2024 06:17 Crane % 8.4 % ()?? 03/07/2024 06:17 Eos % 2.8 % ()?? 03/07/2024 06:17 Baso % 0.3 % ()?? 03/07/2024 06:17 Imm Gran 0.7 % ()?? 03/07/2024 06:17 Abs. Imm Gran 0.1 k/mm3 ()?? 03/07/2024 06:17 ?? CARDIAC High Sensitivity Troponin (HSTnT) 34 ng/L (High)?? 03/07/2024 06:17 ?? CHEM GENERAL Sodium 137 mmol/L ()?? 03/07/2024 06:17 Potassium 4.8 mmol/L ()?? 03/07/2024 06:17 Chloride 101 mmol/L ()?? 03/07/2024 06:17 Bicarbonate Level 25 mmol/L ()?? 03/07/2024 06:17 Anion Gap 11 ()?? 03/07/2024 06:17 Glucose Level 124 mg/dL (High)?? 03/07/2024 06:17 Glucose, POC 98 mg/dL ()?? 03/07/2024 07:33 BUN 35 mg/dL (High)?? 03/07/2024 06:17 Creatinine-Blood 2.24 mg/dL (High)?? 03/07/2024 06:17 Estimated GFR Creatinine 30 ML/MIN/1.73 M2 ()?? 03/07/2024 06:17 Calcium 9.1 mg/dL ()?? 03/06/2024 18:54 Magnesium 2.0 mg/dL ()?? 03/07/2024 06:17 Albumin 3.2 Gm/dL (Low)?? 03/07/2024 06:17 AST (SGOT) 13 units/L ()?? 03/07/2024 06:17 ALT (SGPT) 13 units/L ()?? 03/07/2024 06:17 Bilirubin, Total <0.2 mg/dL ()?? 03/07/2024 06:17 Lactate 0.9 mmol/L ()?? 03/07/2024 06:17 ?? ENDOCRINE/TUMOR MARKER TSH 4.20 uIU/mL ()?? 03/07/2024 06:17 ?? MISC. CHEMISTRY Procalcitonin 0.18 ng/mL ()?? 03/07/2024 06:17 ?? UA/URINALYSIS Appear/Color, Urine PINK ()?? 03/07/2024 06:56 Specific [place], Urine 1.010 ()?? 03/07/2024 06:56 pH, Urine 6.0 ()?? 03/07/2024 06:56 Albumin, Urine 2+ (Abnormal)?? 03/07/2024 06:56 Glucose, Urine NEGATIVE (N)?? 03/07/2024 06:56 Ketones, Urine NEGATIVE (N)?? 03/07/2024 06:56 Bilirubin, Urine NEGATIVE (N)?? 03/07/2024 06:56 Hemoglobin, Urine 3+ (Abnormal)?? 03/07/2024 06:56 Nitrite, Urine NEGATIVE (N)?? 03/07/2024 06:56 Leukocyte, Urine 2+ (Abnormal)?? 03/07/2024 06:56 Urobilinogen NORMAL mg/dL (N)?? 03/07/2024 06:56 WBC's, Urine 9 /HPF (High)?? 03/07/2024 06:56 RBC's, Urine >182 /HPF (High)?? 03/07/2024 06:56 Bacteria SLIGHT HPF (Abnormal)?? 03/07/2024 06:56 Squamous Epith <1 /HPF ()?? 03/07/2024 06:56 Mucus SLIGHT /LPF ()?? 03/07/2024 06:56 ?? URINE OTHER Est Creatinine Clearance 27.67 mL/min ()?? 03/07/2024 07:20 ? Urinalysis Albumin, Urine: 2+ Abnormal (06:56) Appear/Color, Urine: PINK (06:56) Bacteria: SLIGHT Abnormal (06:56) Bilirubin, Urine: NEGATIVE (06:56) Est Creatinine Clearance: 27.67 mL/min (07:20) Est Creatinine Clearance: 28.56 mL/min (00:05) Glucose, Urine: NEGATIVE (06:56) Hemoglobin, Urine: 3+ Abnormal (06:56) Ketones, Urine: NEGATIVE (06:56) Leukocyte, Urine: 2+ Abnormal (06:56) Mucus: SLIGHT (06:56) Nitrite, Urine: NEGATIVE (06:56) pH, Urine: 6 (06:56) RBC's, Urine:??>182??High (06:56) Specific [place], Urine: 1.01 (06:56) Squamous Epith: <1 (06:56) Urobilinogen: NORMAL (06:56) WBC's, Urine:??9 /HPF??High (06:56) ? Assessment/Plan The patient is a 73-year-old male with history of urinary retention previously managed with intermittent catheterization.??He had a urethral stricture that was dilated and coker catheter placed.??Thefoley can remain in place for 4 weeks after which it can be routinely exchanged.??Nursing staff at SNF may exchange it or patient may follow up at [facility] for routine change.??Urology will sign off.? Patient case reviewed by and was seen with attending physician??Dr. Leopoldo Goodwin ?? * Cesar TAPIA, Talib Kumari: PERFORM, SIGN, VERIFY Event Display: Progress Note Hospital Authored Date: Patient: ARGENTINA GARRETT Age: 73 years Sex: Male : 1950 Associated Diagnoses: None Author: Talib Guerrero RN Findings Problem Related to Alteration in Genitourinary : Alteration in Genitourinary Function/new 03/07/2024 5:00 EDT Alteration in Status Related to Urinary retention, Urology procedure, Other: Urethral Trauma, Hematuria Goals & Outcomes, Genitourinary Pt will maintain adequate function appropriate for pt, Pt will resume normal pattern of elimination, Pt will report acceptable level of comfort/pain, Pt will not experience S/S of infection prior to D/C Interventions, Assess/monitor/maintain Genitourinary status, Assist & encourage pt with meticulous boubacar care, Encourage PO fluid intake as allowed by diet, Assess causative factors of urinary retention, Teach signs & symptoms of distended bladder, Assess bladder for distention and pt's ability to void, Assess/monitor urine for hematuria/stones/gravel/volume BH Goals/Interventions, Genitourinary Yes Genitourinary, Problem Start 03/07/2024 2:18 Reviewed Plan with, Genitourinary Patient, Family/caregiver not available Patient Progression, Genitourinary Plan Initiation Genitourinary, Problem Ongoing Yes . Nursing Data Vital Signs : VITAL SIGNS SECTION 03/07/2024 4:40 EDT Temperature 98.7 DegF Temperature Route Rectal Normothermic Measures Sav hugger Heart Rate Monitored 79 bpm Respiratory Rate 18 br/min Systolic Blood Pressure 120 mm Hg Diastolic Blood Pressure 72 mm Hg Pulse Pressure 48 mm Hg Oxygen Saturation 96 % Mode of Delivery (Oxygen) Room air 03/07/2024 4:00 EDT Temperature 95.3 DegF L Temperature Route Rectal Normothermic Measures Sav hugger Pulse Rate 70 bpm Respiratory Rate 14 br/min L Systolic Blood Pressure 139 mm Hg H Diastolic Blood Pressure 76 mm Hg Blood pressure sites Arm, left Pulse Pressure 63 mm Hg Oxygen Saturation 97 % Mode of Delivery (Oxygen) Room air . Evaluation P- see plan of care I-see interactive flowsheet and plan of care E- 0400: Transfer in via bed with sav hugger, hypothermic -95.3(on sav hugger) , very lethargic,arousable to pain stimuli, [id number](9). on RA -97%, BP- 139/76, HR-67mmHg. eduardo Jones notified and made aware. With patent and intact Fr.16 Urology cathteter,connevcted to adrainage bag draining to a pink- orange urine CHG and Coker care done, incontinence care provided. Coccyx area pressure wound cleanse and pat dry, bedside turning done. rectal probe place for accurate temp. monitoring. Call cabrera within reach. Hourly rounds continuously done to maintain safety and comfort. See biophysical and interactive flowsheet for complete assessment and vital signs. 0500: pt more awake, arousable to verbal stimuli, GCS-12(E4V2M6). Follows simple command, able to do hand loan interviewer on both hands, equal strength during time of assessment. maintain on Sav hugger to reach normotensive goal. Will continue with plan of care. . * Dayna Victor RN: PERFORM, SIGN, VERIFY Event Display: Progress Note Hospital Authored Date: Patient: ARGENTINA GARRETT Age: 73 years Sex: Male : 1950 Associated Diagnoses: None Author: Dayna Victor RN Findings Problem Related to Alteration in Genitourinary : Alteration in Genitourinary Function/new 03/07/2024 1:00 EDT Alteration in Status Related to Urinary retention, Urology procedure Goals & Outcomes, Genitourinary Pt will maintain adequate function appropriate for pt, Pt will resume normal pattern of elimination, Pt will report acceptable level of comfort/pain, Pt will not experience S/S of infection prior to D/C Interventions, Assess/monitor/maintain Genitourinary status, Assist & encourage pt with meticulous boubacar care, Assess/monitor urine for hematuria/stones/gravel/volume BH Goals/Interventions, Genitourinary Yes Genitourinary, Problem Start 03/07/2024 2:18 Reviewed Plan with, Genitourinary Family/caregiver not available Patient Progression, Genitourinary Plan Initiation Genitourinary, Problem Ongoing Yes . Narrative/Incidental Transfer from ER at approx 2300 for urethral damage s/p traumatic coker. Pt A&Ox1, very soft spoken, speaks minimally. Left sided deficits and facial droop. Coker cath in place draining pink urine. Small amount of sanginous penile drainage observed. Unstageable pressure injury on coccyx, skin otherwise intact. Pt denies pain but displays discomfort when palpating suprapubic region. Vitals taken at 2330 showed rectal temp of 91.2, other vitals wnl. Covering provider contacted and sav huggerplaced, to be kept on for no longer than four hours. See CIS for full info including subsequent vital checks, comfort and safety measures in place.. Consult note * Carlos PRADO, Feliciano Russ: PERFORM Event Display: Consultation Note Authored Date: Patient: ??ARGENTINA GARRETT ? Age:??73 Years?Sex:??Male?:??1950?? Chief Complaint BIBA from [facility] due to urinary retention for 8 hours. [facility] staff attempted SC and failed due to resistance. 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 Dementia at baseline. C/o abd discomfort. Reason for Consultation hematuria and difficult coker History of Present Illness He comes in??nursing facility??as he was??on intermittent catheterization.?? At the facility??therewas noted to have difficulty passing a Coker.?? He presented to the ER and again there was a lot ofdifficulty and hematuria with Coker catheter placement.?? Initially, it was thought that??bladder??was being decompressed with a Coker and CBI was started for hematuria.?? However??the return??of urine was inadequate and I was asked to??evaluate the??patient.?? On initial evaluation mostly the catheter was??not in the correct position as??majority of it was outside the??penis.?? I immediately remove the Coker??and attempted to pass a??coud?? Coker unsuccessfully.?? I therefore??performed bedside cystoscopy??and was able to successfully??pass a guidewire??beside a??false passage??that was noted??I confirmed that the wire was in good position with a 8 [place]??urethral??dilator. ??Clear urine was obtained. ??I was then able to dilate the??urethra up to 18 [place] noting some resistance as I??i ncreased the diameter of the dilators.?? At this point I passed a 16 [place] into the bladder and inflated balloon to 10 cc.?? Clear urine was obtained that I irrigated the bladder and returned about??300 cc of clear urine.?? The Coker was then??left to gravity drainage.?? Given he is on Eliquis I recommended that he be observed overnight for??urethral bleeding.?? If the bleeding persist??I would consider holding Eliquis.?? Since his urethral trauma it should resolve??with the??Coker.?? Coker should not be removed in the future??without urology's consent. Review of Systems See the chart. ??Unable to get review of system from patient Physical Exam Vitals & Measurements T:??98?F?? HR:??67??(Peripheral)?? RR:??18?? BP:??118/80?? SpO2:??97%?? Nondistended Assessment/Plan Discharge Planning:?? Urethral injury??from traumatic Coker.?? Plan will be discharged with indwelling Coker catheter.?? Patient should follow-up??in 1 month for??a Coker catheter exchange??at [facility] urology.?? Patient to be discharged tomorrow if??hematuria??and/or urethra?? bleeding is not present. Problem List/Past Medical History Ongoing Acute hypoxic respiratory failure AD (Alzheimer's disease) Anemia in chronic kidney disease Anemia of chronic disease Atrial fibrillation BPH (benign prostatic hyperplasia) CHF (congestive heart failure) Chronic anticoagulation Chronic obstructive pulmonary disease CKD (chronic kidney disease) stage 4, GFR 15-29 ml/min Cognitive impairment Coronary artery disease Dementia 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 Dysphagia Emotional lability Expressive aphasia GERD (gastroesophageal reflux disease) History of CVA with residual deficit Hypertension Hypothyroidism Major depressive disorder, recurrent episode, severe Multifocal pneumonia Pressure ulcer of coccygeal region, stage 2 Schizophrenia Seizure disorder Stage III chronic kidney disease Type 2 diabetes mellitus Urine retention Wheelchair dependent Xerosis cutis Procedure/Surgical History ???EGD - esophagogastroduodenoscopy (02/09/2024) Medications Inpatient No active inpatient medications Home Acephen 650 mg rectal suppository, 650 mg= 1 supp, Rectally, Every 8 hours, PRN amLODIPine 10 mg oral tablet, 10 mg= 1 tablet, By Mouth, Daily in AM atorvastatin 20 mg oral tablet, 20 mg= 1 tablet, By Mouth, Daily at bedtime Augmentin 500 Tablet, 1 tablet, By Mouth, 2 times a day benztropine 1 mg oral tablet, 1 mg, By Mouth, 2 times a day Carafate 1 gm oral tablet, 1 Gm= 1 tablet, By Mouth, 3 times a day cholecalciferol 2000 intl units oral tablet, 50 mcg= 1 tablet, By Mouth, Daily in AM Daily Seema oral tablet, 1 tablet, By Mouth, Daily in AM Dulcolax 10 mg rectal suppository, 10 mg= 1 supp, Rectally, Daily, PRN Eliquis 5 mg oral tablet, 5 mg= 1 tablet, By Mouth, 2 times a day ferrous sulfate 325 mg oral enteric coated tablet, 325 mg, By Mouth, Every other day finasteride 5 mg oral tablet, 5 mg= 1 tablet, By Mouth, Daily in AM folic acid 1 mg oral tablet, 1 mg= 1 tablet, By Mouth, Daily in AM guaiFENesin 100 mg/5 mL oral liquid, 400 mg= 20 mL, By Mouth, 2 times a day, PRN Gvoke HypoPen 1 mg/0.2 mL subcutaneous solution, 1 mg, Subcutaneous Injection, Once, PRN haloperidol decanoate 50 mg/ml injectable solution, 25 mg= 0.5 mL, Intramuscular, Every 28 days Imdur 30 mg oral tablet, extended release, 1 tablet, By Mouth, Daily in AM Insta-Glucose 24 g/31 g oral gel, See Instructions insulin lispro 100 units/mL injectable solution, 2-10 units, Subcutaneous Injection, 2 times a day with meals lactulose 10 gm/15 ml oral syrup, 30 Gm= 45 mL, By Mouth, Daily in AM Lantus Inj, 4 units= 0.04 mL, Subcutaneous Injection, Daily at bedtime levETIRAcetam 100 mg/mL oral solution, 250 mg= 2.5 mL, By Mouth, 2 times a day Minerin topical cream, Topically, Daily at bedtime pantoprazole 40 mg oral delayed release tablet, 40 mg= 1 tablet, By Mouth, 2 times a day risperiDONE 2 mg oral tablet, 2 mg= 1 tablet, By Mouth, 2 times a day Senna 8.6 mg oral tablet, 17.2 mg= 2 tablet, By Mouth, Daily, PRN Synthroid 0.1 mg oral tablet, 100 mcg, By Mouth, Daily tamsulosin 0.4 mg oral capsule, 0.8 mg= 2 capsule, By Mouth, Daily at bedtime thiamine 100 mg oral tablet, 100 mg= 1 tablet, By Mouth, Daily in AM Allergies NKA Immunizations Vaccine Date Status influenza virus vaccine, inactivated 08/06/2021 Recorded SARS-CoV-2 (COVID-19) Ad26 vaccine 06/21/2021 Recorded SARS-CoV-2 (COVID-19) Ad26 vaccine 06/21/2021 Recorded influenza virus vaccine, inactivated 08/09/2018 Recorded Note * Sandie Kwok RN: PERFORM Event Display: Discharge/Transfer Note Hospital Authored Date: Nursing Discharge Note Entered On: 03/07/2024 14:50 EDT Performed On: 03/07/2024 14:50 EDT by Sandie Kwok RN Nursing Discharge Note 2 Discharge Time : 03/07/2024 15:00 EDT Sandie Kwok RN - 03/07/2024 17:28 EDT Discharge Level of Care at Discharge : [facility] Discharge Nursing Homes/Rehab Facilities : [facility] [phone] Patient Left Unit Via : Ambulance Patient Accompanied Off Unit with : Ambulance/Chair Van Personnel Handover Given to Transport Personnel : Yes DC Instructions Provided & Signed by Pt : No Patient Understands D/C Instructions : Yes Patient Instructions Discharge Signed : No Did Pt have Specialty Bed or Wound Vac : No Sandie Kwok RN - 03/07/2024 14:50 EDT * Oliva Ramirez MD: PERFORM, SIGN, VERIFY Event Display: Discharge/Transfer Note Hospital Authored Date: Patient: ARGENTINA GARRETT Age: 73 years Sex: Male : 1950 Associated Diagnoses: None Author: Oliva Ramirez MD Discharge Information Admission Date: 03/06/2024 Discharge Date 03/07/2024 Principal Discharge Diagnosis Urinary retention: Present on admission - yes. Secondary Discharge Diagnoses Seizure disorder: Present on admission - yes. Obese class I: Present on admission - yes. Major depressive disorder, recurrent episode, severe: Present on admission - yes. Hypothyroidism: Present on admission - yes. History of CVA with residual deficit: Present on admission - yes. Expressive aphasia: Present on admission - yes. Emotional lability: Present on admission - yes. 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: Present on admission - yes. Coronary artery disease: Present on admission - yes. CKD (chronic kidney disease) stage 4, GFR 15-29 ml/min: Present on admission - yes. Chronic obstructive pulmonary disease: Present on admission - yes. BPH (benign prostatic hyperplasia): Present on admission - yes. AD (Alzheimer's disease): Present on admission - yes. Schizophrenia: Present on admission - yes. Hypothermia: Present on admission - yes. Hypertension: Present on admission - yes. Diabetes: Present on admission - yes. Decubitus ulcer of coccyx: Present on admission - yes. Atrial fibrillation: Present on admission - yes. Anxiety and depression: Present on admission - yes. Medications (Selected) Documented Medications Documented Acephen 650 mg rectal suppository: 1 supp = 650 mg, Rectally, Every 8 hours, PRN Pain , Mild, Fever>101, Maintenance, 02/13/24 15:38:00 EDT, Suppository, Partial fill upon patient request if the prescription is for a schedule II opioid drug. Carafate 1 gm oral tablet: 1 Gm, 1, tablet, By Mouth, 3 times a day, 6 AM, 12 PM & 5 PM NOT ON PAPER CHART, Refills 0, Maintenance, 03/15/23 11:55:00 EDT, Partial fill upon patient request if the prescription is for a schedule II opioid drug. Daily Seema oral tablet: 1 tablet, By Mouth, Daily in AM, Maintenance, 02/10/23 13:39:00 EDT, Tablet, Partial fill upon patient request if the prescription is for a schedule II opioid drug. Dulcolax 10 mg rectal suppository: 1 supp = 10 mg, Rectally, Daily, PRN as needed for constipation,Maintenance, 02/13/24 15:40:00 EDT, Suppository, Partial fill upon patient request if the prescription is for a schedule II opioid drug. Eliquis 5 mg oral tablet: 1 tablet = 5 mg, By Mouth, 2 times a day, Maintenance, 05/28/23 19:42:00 EDT, Tablet, Partial fill upon patient request if the prescription is for a schedule II opioid drug. Imdur 30 mg oral tablet, extended release: 1, tablet, By Mouth, Daily in AM, Refills 0, Maintenance, 08/21/23 11:50:00 EST, Partial fill upon patient request if the prescription is for a schedule II opioid drug. Lantus Inj: 0.04 mL = 4 units, Subcutaneous Injection, Daily at bedtime, 0 Refills, Maintenance, 02/16/24 10:58:00 EDT, Injection, Partial fill upon patient request if the prescription is for a schedule II opioid drug. Senna 8.6 mg oral tablet: 17.2 mg, 2, tablet, By Mouth, Daily, PRN, Refills 0, Maintenance, for constipation, 08/11/23 17:07:00 EST, Tablet, Partial fill upon patient request if the prescription is for a schedule II opioid drug. Synthroid 0.1 mg oral tablet: = 100 mcg, By Mouth, Daily, 0 Refills, Maintenance, 08/21/23 11:51:00EST, Tablet, Partial fill upon patient request if the prescription is for a schedule II opioid drug. amLODIPine 10 mg oral tablet: 10 mg, 1, tablet, By Mouth, Daily in AM, Refills 0, Maintenance, 08/11/23 17:00:00 EST, Partial fill upon patient request if the prescription is for a schedule II opioiddrug. atorvastatin 20 mg oral tablet: 1 tablet = 20 mg, By Mouth, Daily at bedtime, 0 Refills, Maintenance, 02/10/23 0:33:00 EDT, Tablet, Partial fill upon patient request if the prescription is for a schedule II opioid drug. benztropine 1 mg oral tablet: 1 mg, By Mouth, 2 times a day, Refills 0, Maintenance, 08/21/23 11:49:00 EST, Partial fill upon patient request if the prescription is for a schedule II opioid drug. cholecalciferol 2000 intl units oral tablet: 1 tablet = 50 mcg, By Mouth, Daily in AM, 0 Refills, Maintenance, 08/11/23 17:05:00 EST, Partial fill upon patient request if the prescription is for a schedule II opioid drug. ferrous sulfate 325 mg oral enteric coated tablet: 325 mg, By Mouth, Every other day, Refills 0, Maintenance, 02/16/24 10:58:00 EDT, Partial fill upon patient request if the prescription is for a schedule II opioid drug. finasteride 5 mg oral tablet: 1 tablet = 5 mg, By Mouth, Daily in AM, 0 Refills, Maintenance, 08/11/23 17:02:00 EST, Tablet, Partial fill upon patient request if the prescription is for a schedule IIopioid drug. folic acid 1 mg oral tablet: 1 mg, 1, tablet, By Mouth, Daily in AM, # 30 tablet, Refills 0, Maintenance, 08/11/23 17:02:00 EST, Partial fill upon patient request if the prescription is for a schedule II opioid drug. guaiFENesin 100 mg/5 mL oral liquid: 20 mL = 400 mg, By Mouth, 2 times a day, PRN for cough, Maintenance, 02/13/24 15:30:00 EDT, Liquid, Partial fill upon patient request if the prescription is for aschedule II opioid drug. haloperidol decanoate 50 mg/ml injectable solution: 0.5 mL = 25 mg, Intramuscular, Every 28 days, STARTED 06/02/23, Maintenance, 02/10/23 13:27:00 EDT, Partial fill upon patient request if the prescription is for a schedule II opioid drug. insulin lispro 100 u/ml subcutaneous injection: 2-10 units, Subcutaneous Injection, 3 times a day before meals, 0 Refills, Maintenance, 03/07/24 11:39:00 EDT, Injection, Partial fill upon patient request if the prescription is for a schedule II opioid drug. lactulose 10 gm/15 ml oral syrup: 45 mL = 30 Gm, By Mouth, Daily in AM, 0 Refills, Maintenance, 09/01/23 14:28:00 EST, Syrup, Partial fill upon patient request if the prescription is for a schedule II opioid drug. levETIRAcetam 100 mg/mL oral solution: 2.5 mL = 250 mg, By Mouth, 2 times a day, 0 Refills, Maintenance, 09/01/23 14:43:00 EST, Solution, Partial fill upon patient request if the prescription is for a schedule II opioid drug. pantoprazole 40 mg oral delayed release tablet: 1 tablet = 40 mg, By Mouth, 2 times a day, 0 Refills, Maintenance, 09/09/23 12:04:00 EST, EC Tablet risperiDONE 2 mg oral tablet: 2 mg, 1, tablet, By Mouth, 2 times a day, Maintenance, 02/10/23 13:30:00 EDT, Partial fill upon patient request if the prescription is for a schedule II opioid drug. tamsulosin 0.4 mg oral capsule: 0.8 mg, 2, capsule, By Mouth, Daily at bedtime, Refills 0, Maintenance, 02/10/23 0:35:00 EDT, Partial fill upon patient request if the prescription is for a schedule II opioid drug. thiamine 100 mg oral tablet: 100 mg, 1, tablet, By Mouth, Daily in AM, Refills 0, Maintenance, 09/08/23 12:55:00 EST, Partial fill upon patient request if the prescription is for a schedule II opioiddrug.. Hospital Course Hospital Course 73-year-old male with a PMH incl dementia, Schizoaffective disorder, seizure disorder, depression, h/o CVA with residual left sided weakness and dysphagia, decub ulcer, CAD, AF, CHF, HTN, DM, CKD, COPD, Hypothyroidism, chronic hypothermia, who presented to the ER from his long-term care facility with concerns for urinary retention. Apparently the patient had been indicating some abdominal discomfort in the suprapubic area. He has a history of urinary retention in the past as well as BPH. On arrival to the ER a Coker catheter was attempted but unsuccessful. Eventually, urology were consulted and placed a Coker catheter. Apparently he had some hematuria likely after the instrumentation or initial traumatic Coker placement. His hematuria has resolved. BPH with urinary retention: S/p coker placement by Urology. - F/u with Urology in about 1 months - Finasteride, Tamsulosin Dementia: Schizoaffective disorder: Depression: Chronic intermittent hypothermia: TSH and AM cortisol level nl and no evidence of sepsis/infection. Suspect hypothermia due to Risperidone and Haldol. Pt aslo might have central temp dysregulation due to h/o CVA. ? Parkinsons. - Haldol IM q month - Risperidone - > If hypothermia becomes symptomatic might need to switch to other regimen! - Benztropine - Increase ambulation/movement/PT - Warm clothes/blankets - GOC review with guardian. Pt still full code. Seizure disorder: Bebeto IRDM: - Lantus insulin and POC/ISS Hypothyroidism: Levothyroxine CAD: AF: h/o CVA: CHF: HTN: - Apixaban - Atorvastatin - Imdur - Amlodipine Decub ulcer: - Wound care - Frequent repositioning/offloading COPD: stable. General Appearance NAD. Fatigued. Not dyspneic. Not ill-appearing. HEENT Moist mucous membranes. Respiratory Lungs: CTA. Cardiac Cardiac: no M/G/R. Rhythms: RRR. Abdomen/GI Abdomen: soft, non-tender, non-distended, bowel sounds. Extremities No edema. Neurologic Alert & oriented x 1-2 . Attending Consultants Carlos PRADO, Feliciano Russ: Speciality Urology . Results Laboratory : LABORATORY 03/07/2024 6:56 EDT Appear/Color, Urine PINK Specific [place], Urine 1.010 pH, Urine 6.0 Albumin, Urine 2+ Glucose, Urine NEGATIVE Ketones, Urine NEGATIVE Bilirubin, Urine NEGATIVE Hemoglobin, Urine 3+ Nitrite, Urine NEGATIVE Leukocyte, Urine 2+ Urobilinogen NORMAL mg/dL WBC's, Urine 9 /HPF H RBC's, Urine >182 /HPF Bacteria SLIGHT HPF Squamous Epith <1 /HPF Mucus SLIGHT /LPF 03/07/2024 6:17 EDT WBC 6.8 k/mm3 Hgb 8.2 Gm/dL L Hct 25.8 % L Platelet Count 181 k/mm3 Sodium 137 mmol/L Potassium 4.8 mmol/L Chloride 101 mmol/L Bicarbonate Level 25 mmol/L Anion Gap 11 Glucose Level 124 mg/dL H BUN 35 mg/dL H Creatinine-Blood 2.24 mg/dL H AST (SGOT) 13 units/L ALT (SGPT) 13 units/L Bilirubin, Total <0.2 mg/dL Lactate 0.9 mmol/L High Sensitivity Troponin (HSTnT) 34 ng/L H TSH 4.20 uIU/mL Cortisol Level 9.6 ??g/dL Procalcitonin 0.18 ng/mL 03/06/2024 18:54 EDT WBC 6.3 k/mm3 Hgb 9.2 Gm/dL L Hct 29.5 % L Platelet Count 223 k/mm3 Sodium 134 mmol/L Chloride 100 mmol/L Bicarbonate Level 26 mmol/L Anion Gap 8 Glucose Level 229 mg/dL H BUN 33 mg/dL H Creatinine-Blood 2.17 mg/dL H Calcium 9.1 mg/dL . Imaging : RADIOLOGY 03/07/2024 10:[address] Head/Brain W/O Contrast CT Head/Brain W/O Contrast 03/07/2024 6:21 EDT Chest Portable Chest Portable . Discharge Plan Diet/Activity/Patient Education/Follow Up Follow Up with: PCP Not on Staff Within 3 to 5 days, PCP Not on Staff Within 3 to 5 days; Feliciano Gonzalez Within 1 month. Discharge Disposition Discharge: Post Acute Care. Code Status: Full Code. Discharge Condition: fair, compared to admission improved. 35 minutes spent on discharge Report sent to all consultants: Carlos PRADO, Feliciano Barnes * JacksonKell zhang RN: PERFORM, SIGN, VERIFY Event Display: Case Management Discharge Plan Authored Date: [id number] Patient: ARGENTINA GARRETT Age: 73 years Sex: Male : 1950 Associated Diagnoses: None Author: Kell Caraballo RN Discharge Plan Case Management Discharge Plan : Case Management Discharge Plan Data 03/07/2024 10:59 EDT Discharge Level of Care at Discharge Group Home Care Facility Discharge Nursing Homes/Rehab Facilities [facility] [phone] Discharge Transportation Arranged [facility] [address] [facility] [phone] Discharge Arranged Transport Date/Time 03/07/2024 15:00 Mode of Transportation Arranged Ambulance Agency [facility] admissions Service Categories #1 Residential, Game Moderator Name of Person Notified of Transfer Joe Garrett * Rissa TAPIA, Sandie: PERFORM Event Display: Patient Education/Instruction Authored Date: [id number] Inpatient Adult Discharge Instructions. [address] [address] Name: ARGENTINA GARRETT : 1950?? Visit: 03/06/2024 22:02?? Current Date: 03/07/2024 14:51 ?? Account: [id number]?? Inpatient Adult Discharge Instructions We would like [...] and their families. Surveys are administered by [employer] ?? If further treatment with your primary care physician or another doctor is recommended, it is important for you to keep the appointment. Call your primary care physician or return to the Emergency Department immediately if your condition worsens, fails to improve, or new symptoms develop. If you need to find a doctor, you can call [facility] Link for a referral at [phone] or toll free at [phone] ([phone]) or log in to [email or web address].. ?? [facility], in keeping with [facility] guidance, no longer requires face masks for [...] a health care balaji of your choosing. [employer] is a website that allows you to securely view your medical information including your hospital discharge summary, office visit summaries, medications and follow-up visits. You can also request appointments, renew medications, and request access to your medical information using a health care balaji of your choosing, or just ask a question. You can enroll at [email or web address] or register during your next office visit. You have been discharged from [facility], Patient Care Unit: S3??. If you have any questions regarding these instructions, including results of studies pending, afteryou leave, please call us and we will be happy to assist you 27/04. [facility] Your Care Team Attending Physician Oliva Ramirez MD?? Consulting Providers Oliva Ramirez MD?? Discharging Providers Oliva Ramirez MD Reason for Your Visit ONUR from [facility] due to urinary retention for 8 hours. SN[facility] staff attempted SC and failed due to resistance. 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 Dementia at baseline. C/o abd discomfort.?? Your Diagnosis AD (Alzheimer's disease) Anemia of chronic disease Anxiety and depression Atrial fibrillation BPH (benign prostatic hyperplasia) Chronic obstructive pulmonary disease CKD (chronic kidney disease) stage 4, GFR 15-29 ml/min Coronary artery disease Decubitus ulcer of coccyx Diabetes 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 Emotional lability Encephalopathy Expressive aphasia History of CVA with residual deficit Hypertension Hypothermia Hypothyroidism Major depressive disorder, recurrent episode, severe Obese class I Schizophrenia Seizure disorder Urinary retention Tests Performed Below is a partial list of the tests performed during your hospitalization. You may have had other tests and procedures not included in this list. Please discuss all test results with your provider. Albumin Level ALT AST Basic Metabolic Panel BUN CBC w/ Differential CORTISOL Creatinine Electrolytes Glucose Level GLUCOSE POC Lactic Acid Level Magnesium Level Potassium Level Procalcitonin Level Total Bilirubin Troponin T, High Sensitivity TSH UA Urinalysis w/hold for Urine Culture?-- Results Pending -- CT Head/Brain W/O Contrast Portable Chest You will be contacted within 72 hours with your results. Add On Lab Order (Lab Add On Order)?? Blood Culture?? Blood Culture #2?? Hold Lavender Tube (BB)?? Urinalysis w/hold for Urine Culture?? Primary Care Provider Not on Staff, PCP?? Advance Directive Health Care Proxy on File No Patient refuses to discuss Discharge Vitals Temperature: 97.2 DegF Height: 173 cm Pulse Rate:??97 bpm??High Weight: 87.2 kg Respiratory Rate: 18 br/min Body Mass Index:??28.43 kg/m2??High Systolic Blood Pressure: 104 mm Hg Body surface area: 2.02 Diastolic Blood Pressure:??53 mm Hg??Low ?? Oxygen Saturation: 100 % ?? Studies Pending All studies ordered during this hospital stay have been completed unless listed below. Please discuss all pending results with your provider listed above in these instructions. ?? Add On Lab Order (Lab Add On Order)?? Blood Culture?? Blood Culture #2?? Hold Lavender Tube (BB)?? Urinalysis w/hold for Urine Culture?? What to do next Instructions From Your Doctor ?? Orders? 03/07/24 11:38:00 EDT?? You Need to Schedule the Following Appointments Follow Up with??Feliciano Gonzalez When:??Within 1 month Where: [address] [place] [address] [place] [address] Business (1) Follow Up with??PCP Not on Staff When:??Within 3 to 5 days Discharge Medications ARGENTINA GARRETT :1950 Visit Date:03/06/2024 Medications: Please continue your medications until treatment is completed or stopped by your provider. Medications not listed below should be discontinued. Discuss any questions related to medications with your provider. What How Much When Instructions Next Dose Changed Acetaminophen (acetaminophen 325 mg oral tablet) 2 tab(s) Oral 3 times a day as needed for as needed for pain/ fever as needed Changed Acetaminophen (acetaminophen 650 mg rectal suppository) 1 suppository(ies) Per rectum 3 times a day as needed for for fever/ pain as needed Changed Glucagon (Gvoke PFS 0.5 mg/ 0.1 mL subcutaneous solution) 0.1 Milliliter Subcutaneous Injection Once Duration: 1 doses/times see instruction Changed Glucose (Insta-Glucose 24 g/ 31 g oral gel) see instruction Changed Insulin Lispro (insulin lispro 100 u/ ml subcutaneous injection) 2-10 units Subcutaneous Injection 3 times a day before meals 03/07 Changed Tamsulosin (tamsulosin 0.4 mg oral capsule) 1 capsule Oral Daily at Bedtime 03/07 Unchanged Amlodipine (amLODIPine 10 mg oral tablet) 1 tab(s) Oral Daily in the morning 03/08 Unchanged apixaban (Eliquis 5 mg oral tablet) 1 tab(s) Oral Twice a day 03/07 Unchanged Atorvastatin (atorvastatin 20 mg oral tablet) 1 tab(s) Oral Daily at Bedtime 03/07 Unchanged Benztropine (benztropine 1 mg oral tablet) 1 Milligram Oral Twice a day 03/07 Unchanged Bisacodyl (Dulcolax 10 mg rectal suppository) 1 suppository(ies) Per rectum Daily as needed for as needed for constipation as needed Unchanged Cholecalciferol (cholecalciferol 2000 intl units oral tablet) 1 tab(s) Oral Daily in the morning 03/08 Unchanged Ferrous Sulfate (ferrous sulfate 325 mg oral enteric coated tablet) 325 Milligram Oral Every other day see instruction Unchanged Finasteride (finasteride 5 mg oral tablet) 1 tab(s) Oral Daily in the morning 03/08 Unchanged Folic Acid (folic acid 1 mg oral tablet) 1 tab(s) Oral Daily in the morning 03/08 Unchanged Haloperidol (haloperidol decanoate 50 mg/ ml injectable solution) 0.5 Milliliter Intramuscular Every 28 days STARTED ?? see instruction Unchanged Insulin Glargine (Lantus Inj) 4 unit(s) Subcutaneous Injection Daily at Bedtime 9/3 Unchanged Isosorbide Mononitrate (Imdur 30 mg oral tablet, extended release) 1 tab(s) Oral Daily in the morning 03/08 Unchanged Lactulose (lactulose 10 gm/ 15 ml oral syrup) 45 Milliliter Oral Daily in the morning 03/08 Unchanged levETIRAcetam (levETIRAcetam 100 mg/ mL oral solution) 2.5 Milliliter Oral Twice a day 03/07 Unchanged Levothyroxine (Synthroid 0.1 mg oral tablet) 100 Microgram Oral Daily 03/08 Unchanged Multivitamin (Daily Seema oral tablet) 1 tab(s) Oral Daily in the morning 03/08 Unchanged Pantoprazole (pantoprazole 40 mg oral delayed release tablet) 1 tab(s) Oral Twice a day 03/07 Unchanged Risperidone (risperiDONE 2 mg oral tablet) 1 tab(s) Oral Twice a day 03/07 Unchanged Senna (Senna 8.6 mg oral tablet) 2 tab(s) Oral Daily as needed for for constipation as needed Unchanged Sucralfate (Carafate 1 gm oral tablet) 1 tab(s) Oral 3 times a day 6 AM, 12 PM & 5 PM NOT ON PAPER CHART ?? 03/07 Unchanged Thiamine (thiamine 100 mg oral tablet) 1 tab(s) Oral Daily in the morning 03/08 ?? What How Much When Comments Stop Taking Amoxicillin-Clavulanate (Augmentin 500 Tablet) 1 tab(s) Oral Twice a day Stop Taking Emollients, Topical (Minerin topical cream) Topically Daily at Bedtime to bilateral feet ?? Prescription Given During Visit No new medications prescribed at time of discharge.?? Laboratory Results Below is a partial list of the most recent Laboratory test results done prior to this discharge. You may have had other tests and procedures not included in this list. Please discuss all test resultswith your provider. Est Creatinine Clearance - 27.67 mL/min (03/07/2024) Albumin Level (03/07/2024) ???Albumin - 3.2 Gm/dL ALT (03/07/2024) ???ALT (SGPT) - 13 units/L AST (03/07/2024) ???AST (SGOT) - 13 units/L Basic Metabolic Panel (03/06/2024) ???Sodium - 134 mmol/L???Potassium - HEMOLYZED???Chloride - 100 mmol/L???Bicarbonate Level - 26 mmol/L???Anion Gap - 8???Glucose Level - 229 mg/dL???BUN - 33 mg/dL???Creatinine-Blood - 2.17 mg/dL???Estimated GFR Creatinine - 31 ML/MIN/1.73 M2???Calcium - 9.1 mg/dL BUN (03/07/2024) ???BUN - 35 mg/dL CBC w/ Differential (03/07/2024) ???WBC - 6.8 k/mm3???RBC - 3.03 m/mm3???Hgb - 8.2 Gm/dL???Hct - 25.8 %???MCV - 85.1 femtoliters???MCH - 27.1 pg???MCHC - 31.8 g/dL???Platelet Count - 181 k/mm3???RDW-SD - 60.4 femtoliters???MPV - 10.1 femtoliters???Nucleated RBC (Automated) - 0.9 #/100 WBC'S???Abs. NRBC - 0.1 k/mm3???Abs. Neut - 4.8 k/mm3???Abs. Lymph - 1.2 k/mm3???Abs. Crane - 0.6 k/mm3???Abs. Eo - 0.2 k/mm3???Abs. Baso - 0.0 k/mm3???Neut % - 70.1 %???Lymph % - 17.7 %???Crane % - 8.4 %???Eos % - 2.8 %???Baso % - 0.3 %???Imm Gran- 0.7 %???Abs. Imm Gran - 0.1 k/mm3 CORTISOL (03/07/2024) ???Cortisol Level - 9.6 ??g/dL Creatinine (03/07/2024) ???Creatinine-Blood - 2.24 mg/dL???Estimated GFR Creatinine - 30 ML/MIN/1.73 M2 Electrolytes (03/07/2024) ???Sodium - 137 mmol/L???Potassium - 4.8 mmol/L???Chloride - 101 mmol/L???Bicarbonate Level - 25 mmol/L???Anion Gap - 11 Glucose Level (03/07/2024) ???Glucose Level - 124 mg/dL GLUCOSE POC (03/07/2024) ???Glucose, POC - 103 mg/dL Lactic Acid Level (03/07/2024) ???Lactate - 0.9 mmol/L Magnesium Level (03/07/2024) ???Magnesium - 2.0 mg/dL Potassium Level (03/06/2024) ???Potassium - HEMOLYZED Procalcitonin Level (03/07/2024) ???Procalcitonin - 0.18 ng/mL Total Bilirubin (03/07/2024) ? ?Bilirubin, Total - <0.2 mg/dL Troponin T, High Sensitivity (03/07/2024) ???High Sensitivity Troponin (HSTnT) - 34 ng/L TSH (03/07/2024) ???TSH - 4.20 uIU/mL UA (03/07/2024) ???Appear/Color, Urine - PINK???Specific [place], Urine - 1.010???pH, Urine - 6.0???Albumin, Urine - 2+???Glucose, Urine - NEGATIVE???Ketones, Urine - NEGATIVE???Bilirubin, Urine - NEGATIVE???Hemoglobin, Urine - 3+???Nitrite, Urine - NEGATIVE???Leukocyte, Urine - 2+???Urobilinogen - NORMAL???WBC's,Urine - 9 /HPF? ?RBC's, Urine - >182 /HPF? ?Bacteria - SLIGHT? ?Squamous Epith - <1 /HPF? ?Mucus - SLIGHT Allergies (NKA means No Known Allergies) NKA Problems Active Problems??(31) Acute hypoxic respiratory failure?? AD (Alzheimer's disease)?? Anemia in chronic kidney disease?? Anemia of chronic disease?? Atrial fibrillation?? BPH (benign prostatic hyperplasia)?? CHF (congestive heart failure)?? Chronic anticoagulation?? Chronic obstructive pulmonary disease?? CKD (chronic kidney disease) stage 4, GFR 15-29 ml/min?? Cognitive impairment?? Coronary artery disease?? Dementia?? 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?? Dysphagia?? Emotional lability?? Expressive aphasia?? GERD (gastroesophageal reflux disease)?? History of CVA with residual deficit?? Hypertension?? Hypothyroidism?? Major depressive disorder, recurrent episode, severe?? Multifocal pneumonia?? Pressure ulcer of coccygeal region, stage 2?? Schizophrenia?? Seizure disorder?? Stage III chronic kidney disease?? Type 2 diabetes mellitus?? Urine retention?? Wheelchair dependent?? Xerosis cutis?? Education Materials Below is the list of Educational Leaflet Providered with your Discharge Instructions. Valuables and Belongings I fully understand and agree that [facility] accepts no responsibility for all my [...] witness Date for Pt to Sign Valuables/Belongings: 03/07/24 14:03:00 ?? Other Discharge Information ? Case Management Discharge Plan?? Discharge Plan?? Discharge Agency Information?? Discharge Level of Care at Discharge: Group Home Care Facility Agency [facility]: admissions Discharge Transportation Arranged: [facility] Maggie Foss [facility] [phone] Service Categories #1: Residential, Game Moderator Mode of Transportation Arranged: Ambulance Name of Person Notified of Transfer: Joe Garrett Discharge Arranged Transport Date/Time: 03/07/24 15:00:00 ?? Discharge Nursing Homes/Rehab Facilities: [facility] ??[phone] ? Pulmonary Rehab Status?? Pulmonary Rehab Discharge [...] are strongly encouraged to quit. Please call [facility] [employer] Link at [phone] or [phone] [phone]) or log in to [email or web address] for referrals to smoking cessation programs. ?? 544 Suicide & Crisis Lifeline is available 27/04 if you or someone you know needs to find a reason to keep living. By calling 649 you'll be connected to a skilled, trained counselor at a crisis center in your area. INPATIENT DISCHARGE INSTRUCTIONS SIGNATURE ARGENTINA FIERRO Location:[facility] Registration Date and Time:03/06/2024 22:02 EDT Primary Care Physician: Not on Staff, PCP Attending Physician: Callie Pavon MD, Oliva, I ARGENTINA GARRETT, have received the above patient education materials/instructions and have verbalized understanding. If ambulance or transport services are being used I further acknowledge being given a choice of service. ?? If you need to contact me, please call me at this number: . Patient/Expense Analyst Name: Patient/Expense Analyst Signature: Relationship to Patient: Witness Name/Signature: Date: * Oliva Ramirez MD: SIGN, PERFORM, SIGN, VERIFY Event Display: Patient Education Handout Authored Date: [id number] Patient Care team information Care Team Personnel Name: Janice Escamilla RN Position: [facility] RN Member Role: Primary Care Nurse Name: Mary Carmen Camara RN Position: [facility] RN Member Role: Primary Care Nurse Name: Mayra Ron RN Position: [facility] RN Member Role: Primary Care Nurse Name: Tammy Sheriff RN Position: [facility] RN Member Role: Primary Care Nurse Name: Corwin Rosas RN Position: [facility] RN Member Role: Primary Care Nurse Name: Barrera RNRishabh Position: [facility] RN Member Role: Primary Care Nurse Name: Ashwin RNDhruv Position: [facility] RN [place] Member Role: Primary Care Nurse Name: Leann Forbes RN Position: [facility] RN Member Role: Primary Care Nurse Name: Ebony Bolanos RN Position: [facility] RN Member Role: Primary Care Nurse Name: Monica Camp RN Position: [facility] RN Member Role: Primary Care Nurse Name: Isaiah Hurt RN Position: [facility] RN Member Role: Primary Care Nurse Name: Torito Nicole RN Position: [facility] RN Member Role: Primary Care Nurse Name: Fatimah Greco RN Position: [facility] RN Member Role: Primary Care Nurse Name: Tanya Love RN Position: [facility] RN Member Role: Primary Care Nurse Name: Dayna Victor RN Position: [facility] RN Member Role: Primary Care Nurse Name: Ibis Vogel RN Position: [facility] RN Member Role: Primary Care Nurse Name: Mayra Maloney RN Position: [facility] RN Member Role: Primary Care Nurse Name: Kellee Solis RN Position: [facility] RN Member Role: Primary Care Nurse Name: Adore Pike RN Position: [facility] RN Member Role: Primary Care Nurse Name: Rody Bianchi RN Position: [facility] RN Member Role: Primary Care Nurse Name: Emma Mcgee Position: [facility] RN Member Role: Primary Care Nurse Name: Yamileth Rivera MD Position: [facility] Renal MD Member Role: Lifetime Consulting Physician Address: Address: [address] [facility] [address] [address] Name: Marly Cochran RN Position: [facility] RN Member Role: Primary Care Nurse Name: Not on Staff, PCP Position: [facility] Physician (General Medicine) Member Role: PCP Name: Trinity Machado LPN Position: [facility] RN Member Role: Primary Care Nurse Name: Jill Wilson RN Position: [facility] RN Member Role: Primary Care Nurse Name: Rosa Francis RN Position: [facility] RN Member Role: Primary Care Nurse Name: Ketan Bolanos MD Position: [facility] Renal MD Member Role: Lifetime Consulting Physician Address: Address: [address] [facility] [address] Name: Neri Solo RN Position: [facility] RN Member Role: Primary Care Nurse Name: Sharita Thomas RN Position: [facility] RN Member Role: Primary Care Nurse Name: Suzan Arriaga RN Position: [facility] RN Member Role: Primary Care Nurse Name: Will Polo MD Position: [facility] Renal MD Member Role: Lifetime Consulting Physician Address: Address: [address] [place] [address] [facility] [place], [place] [address] Name: Donna Echavarria RN Position: S RN Member Role: Primary Care Nurse Name: Deanna Kingsley LPN Position: S RN Member Role: Primary Care Nurse Name: Juan Pablo Monteior RN Position: S RN Member Role: Primary Care Nurse Name: Bibiana Woods RN Position: S RN Member Role: Primary Care Nurse Name: Sandie Kwok RN Position: S RN Member Role: Primary Care Nurse Name: Talib Guerrero RN Position: [facility] RN Member Role: Primary Care Nurse Name: Dmitri Rankin RN Position: [facility] RN Member Role: Primary Care Nurse Care Team Related Persons Name: MALIHA CALVO Address: [address] [place], [address] Name: JOE GARRETT Address: home [address], [address]
--- OUTSIDE RECORDS SUMMARY | 2024-06-14 12:02 | XMS_ITS | Continuity of Care Document ---
Author Organization [facility] Address [address] [place] [id number]- Care Team Providers Care Knocker Off Name Role Phone Not on Staff, PCP Primary Care Physician Unavail able Encounter [facility] [place] Date(s): 02/09/24 - 02/09/[address] [id number] Discharge Disposition: A-D/C Home Attending Physician: Kiki Nieto MD Admitting Physician: Kiki Nieto MD Referring Physician: Kiki Nieto MD Allergies, Adverse Reactions, Alerts No Known [...] Active Type 2 diabetes mellitus Confirmed Active Procedures Procedure Date Related Diagnosis Body Site Status EGD - esophagogastroduodenoscopy 02/09/24 Completed Social History Social History Type Response Sex Male Hospital Progress note * Janes Teresa RN: PERFORM, SIGN, VERIFY Event Display: Progress Note Hospital Authored Date: [id number] Patient: ARGENTINA PIPER Age: 73 years Sex: Male : 1950 Associated Diagnoses: None Author: Janes Teresa RN Findings Narrative/Incidental pt cancelled in preop d/t risk of procedure being too great. daughter notified and is in agreeance.alana RN at [facility] also. Patient Care team information Care Team Personnel [...] Christopher RN Position: [facility] RN Supv Member Role: Primary Care Nurse [...] Care Nurse Name: Mayra Maloney RN Position: [facility] RN Member Role: Primary Care Nurse Name: Kellee Solis RN Position: [facility] RN Member Role: Primary Care Nurse Name: Adore Pike RN Position: S RN Member Role: Primary Care Nurse Name: Rody Bianchi RN Position: S RN Member Role: Primary Care Nurse Name: Emma Mcgee Position: S RN Member Role: Primary Care Nurse Name: Yamileth Rivera MD Position: [facility] Renal MD Member Role: Lifetime Consulting Physician Address: Address: [address] [place] [address] [facility] Name: Marly Cochran RN Position: [facility] RN Member Role: Primary Care Nurse Name: Not on Staff, PCP Position: [facility] Physician (General Medicine) Member Role: PCP Name: Trinity Machado LPN Position: [facility] RN Member Role: Primary Care Nurse Name: Rosa Francis RN Position: [facility] RN Member Role: Primary Care Nurse Name: Ketan Bolanos MD Position: [facility] Renal MD Member Role: Lifetime Consulting Physician Address: Address: [address] [place] [address] [address] [facility] Name: Neri Solo RN Position: [facility] RN Member Role: Primary Care Nurse Name: Sharita Thomas RN Position: [facility] RN Member Role: Primary Care Nurse Name: Suzan Arriaga RN Position: [facility] RN Member Role: Primary Care Nurse Name: Will Polo MD Position: [facility] Renal MD Member Role: Lifetime Consulting Physician Address: Address: [address] [place] [address] [facility] [address] Name: Harris Goodman RN Position: [facility] RN Member Role: Primary Care Nurse Name: Deanna Kingsley LPN Position: [facility] RN Member Role: Primary Care Nurse Name: Juan Pablo Monteiro RN Position: [facility] RN Member Role: Primary Care Nurse Name: Bibiana Woods RN Position: S RN Member Role: Primary Care Nurse Name: Sandie Kwok RN Position: [facility] RN Member Role: Primary Care Nurse Name: Dmitri Rankin RN Position: [facility] RN Member Role: Primary Care Nurse Care Team Related Persons Name: UMESH TIAKAILAON Address: [address], [address] Name: VERONIQUE JOE Address: [address], [address]
--- OUTSIDE RECORDS SUMMARY | 2024-06-14 12:02 | XMS_ITS | Continuity of Care Document ---
Author Organization [facility] ter Address [address] [place] [id number]- Care Team Providers Care Mechanic/Welder Name Role Phone Arnulfo PRADO, Mark Primary Care Physician Encounter [facility] [place] Date(s): 08/10/23 - 08/21/[address] [id number] Encounter Diagnosis Unwitnessed fall(Final) - 08/10/23 Pneumonia(Final) - 08/10/23 History of CVA (cerebrovascular accident)(Final) - 08/10/23 Discharge Disposition: A-Transfer SNF Attending Physician: Brenda Downs MD Admitting Physician: Josh Aguilar MD Referring Physician: Not on Staff, Referring MD Allergies, Adverse Reactions, Alerts No Known Allergies Immunizations Given and Recorded Vaccine Date Status Refusal Reason SARS-CoV-2 (COVID-19) Ad26 vaccine 06/21/21 Record ed Medications acetaminophen 325 mg oral tablet 650 mg, By Mouth, Every 4 hours, PRN, Temperature Greater than 100.5, Refills 0, Maintenance, Pain , Mild, 08/21/23 11:49:00 EST, Partial fill upon patient request if the prescription is for a schedule II opioid drug. Start Date: 08/21/23 Status: Ordered amLODIPine 10 mg oral tablet 10 mg, 1, tablet, By Mouth, Daily in AM, # 30 tablet, Refills 0, Maintenance, 08/11/23 17:00:00 EST, Partial fill upon patient request if the prescription is for a schedule II opioid drug. Start Date: 08/11/23 Status: Ordered amLODIPine 10 mg oral tablet 10 mg, Tablet, By Mouth, 08/21/23 9:00:00 EST Start Date: 08/21/23 Stop Date: 08/21/23 Status: Completed apixaban = 5 mg, By Mouth, 2 times a day, 0 Refills, Maintenance, 08/21/23 11:49:00 EST, Tablet, Partial fill upon patient request if the prescription is for a schedule II opioid drug. Start Date: 08/21/23 Status: Ordered benztropine 1 mg oral tablet 1 mg, By Mouth, 2 times a day, Refills 0, Maintenance, 08/21/23 11:49:00 EST, Partial fill upon patient request if the prescription is for a schedule II opioid drug. Start Date: 08/21/23 Status: Ordered Carafate 1 gm oral tablet 1 Gm, 1, tablet, By Mouth, 3 times a day before meals, Refills 0, Maintenance, 08/11/23 16:57:00 EST, Partial fill upon patient request if the prescription is for a schedule II opioid drug. Start Date: 08/11/23 Status: Ordered cholecalciferol 2000 intl units oral tablet 1 tablet = 50 mcg, By Mouth, Daily in AM, 0 Refills, Maintenance, 08/11/23 17:05:00 EST, Partial fill upon patient request if the prescription is for a schedule II opioid drug. Start Date: 08/11/23 Status: Ordered Docusate Sodium Capsule 100 mg, 1, capsule, By Mouth, 2 times a day, Refills 0, Maintenance, 08/21/23 11:49:00 EST, Partialfill upon patient request if the prescription is for a schedule II opioid drug. Start Date: 08/21/23 Status: Ordered finasteride 5 mg oral tablet [...] drug. Start Date: 08/11/23 Status: Ordered Gvoke HypoPen 1 mg/0.2 mL subcutaneous solution = 1 mg, Subcutaneous Injection, Once, PRN Hypoglycemia, 0 Refills, Maintenance, 08/11/23 17:08:00 EST, Partial fill upon patient request if the prescription is for a schedule II opioid drug. Start Date: 08/11/23 Status: Ordered Imdur 30 mg oral tablet, [...] units/mL injectable solution 2-10 units, Subcutaneous Injection, Every 4 hours, 0 Refills, Maintenance, 08/21/23 11:51:00 EST, Injection, Partial fill upon patient request if the prescription is for a schedule II opioid drug. Start Date: 08/21/23 Status: Ordered Keppra 250 mg oral tablet 1 tablet = 250 mg, By Mouth, 2 times a day, # 60 tablet, 0 Refills, Maintenance, 08/21/23 11:52:00 EST, Tablet, Partial fill upon patient request if the prescription is for a schedule II opioid drug. Start Date: 08/21/23 Status: Ordered Lipitor 20 mg oral tablet = 20 mg, By Mouth, Daily at bedtime, 0 Refills, Maintenance, 08/21/23 11:49:00 EST, Tablet, Partialfill upon patient request if the prescription is for a schedule II opioid drug. Start Date: 08/21/23 Status: Ordered MiraLax oral powder for reconstitution = 17 Gm, By Mouth, Daily, dissolve in water before taking, # 255 Gm, 0 Refills, Maintenance, 08/11/23 17:06:00 EST, REC Powder, Partial fill upon patient request if the prescription is for a scheduleII opioid drug. Start Date: 08/11/23 Status: Ordered Multivitamin 1 tablet, By Mouth, Daily in AM, 0 Refills, Maintenance, 08/11/23 17:01:00 EST, Partial fill upon patient request if the prescription is for a schedule II opioid drug. Start Date: 08/11/23 Status: Ordered olanzapine 5 mg oral tablet 5 mg, By Mouth, Daily at bedtime, Refills 0, Maintenance, 08/21/23 11:51:00 EST, Partial fill upon patient request if the prescription is for a schedule II opioid drug. Start Date: 08/21/23 Status: Ordered risperiDONE 1 mg oral tablet 3 mg, By Mouth, Daily at bedtime, Refills 0, Maintenance, 08/21/23 11:51:00 EST, Partial fill upon patient request if the prescription is for a schedule II opioid drug. Start Date: 08/21/23 Status: Ordered risperiDONE 1 mg oral tablet 2 mg, By Mouth, Daily in AM, Refills 0, Maintenance, 08/21/23 11:51:00 EST, Partial fill upon patient request if the prescription is for a schedule II opioid drug. Start Date: 08/21/23 Status: Ordered Senna 8.6 mg oral tablet [...] tamsulosin 0.4 mg oral capsule 0.8 mg, By Mouth, Daily, Refills 0, Maintenance, 08/21/23 11:51:00 EST, Partial fill upon patient request if the prescription is for a schedule II opioid drug. Start Date: 08/21/23 Status: Ordered Results Orders for Microbiology Reports Name Date Blood Culture 08/15/23 Blood Culture #2 08/15/23 Blood Culture #2 08/11/23 Blood Culture 08/10/23 Microbiology Reports TEST:Blood Culture STATUS:Auth (Verified) BODY SITE: SOURCE:Blood COLLECTED DATE/TIME:08/15/23 7:59 AM Blood Culture SPECIMEN DESCRIPTION : BLOOD L SPECIAL REQUESTS : NONE CULTURE : NO GROWTH 5 DAYS. REPORT STATUS : FINAL 08/20/2023 TEST:Blood Culture, Second Order STATUS:Auth (Verified) BODY SITE: SOURCE:Blood COLLECTED DATE/TIME:08/15/23 7:59 AM Blood Culture, Second Order SPECIMEN DESCRIPTION : BLOOD RT SPECIAL REQUESTS : NONE CULTURE : NO GROWTH 5 DAYS. REPORT STATUS : FINAL 08/20/2023 TEST:Blood Culture, Second Order STATUS:Auth (Verified) BODY SITE: SOURCE:Blood COLLECTED DATE/TIME:08/11/23 12:07 AM Blood Culture, Second Order SPECIMEN DESCRIPTION : BLOOD RA SPECIAL REQUESTS : NONE CULTURE : NO GROWTH 5 DAYS. REPORT STATUS : FINAL 08/16/2023 TEST:Blood Culture STATUS:Auth (Verified) BODY SITE: SOURCE:Blood COLLECTED DATE/TIME:08/10/23 7:09 PM Blood Culture SPECIMEN DESCRIPTION : BLOOD RIGHT HAND SPECIAL REQUESTS : NONE CULTURE : NO GROWTH 5 DAYS. REPORT STATUS : FINAL 08/15/2023 Radiology Reports (Most Recent Ten) * Exam Date Time Procedure Performing Provider Status 08/19/23 11:[address] Head/Brain W/O Contrast Stupak , Venkat; Auth (Verified) Notes: (CT Head/Brain W/O Contrast) Reason For Exam: encephalopathy;Other: RESULT: CT Head/Brain W/O Contrast CT Head/Brain W/O Contrast INDICATION: encephalopathy; Clinical Question(s): Hematoma; Order Comment: TECHNIQUE: Noncontrast head CT using axial technique and reconstructed in axial and coronal planes.Iterative reconstruction techniques are used to optimize dose and image quality. CTDIvol Head: 48.30 mGy, DLP Head: 773 mGy*cm. COMPARISON: 08/16/2023. MRI brain from 08/14/2023 FINDINGS: Budget Technician view findings, lines and tubes: None. BRAIN AND EXTRA-AXIAL SPACES: No parenchymal hemorrhage, midline shift, or mass effect. Chronic lacunar infarcts in the bilateralbasal ganglia. Previously seen foci of acute infarction of the left cerebellum are better characterized on the recent MRI from 08/14/2023. Zapata-white matter differentiation is otherwise well preserved. Negative insular ribbon sign. Atherosclerotic vascular calcification of the carotid arteries but negative hyperdense vessel sign. Moderate prominence of the ventricles and sulci consistent with parenchymal volume loss. Moderate low-density white matter changes. No subarachnoid hemorrhage. No subdural or epidural collection. CALVARIUM, SKULL BASE, AND SOFT TISSUES: No fractures or suspicious bony lesions. Mild mucosal thickening within the paranasal sinuses. The mastoid air cells are clear. Visualized orbits and globes are intact. The extracranial soft tissues are unremarkable. IMPRESSION: No acute intracranial pathology. The certainly noted focus of acute infarct in the left cerebellum is seen better in the MRI study of 08/14/2023. Stable old bilateral basal ganglia lacunar infarcts. I have personally reviewed the images and I agree with this report. WSN: [id number] Ordering Physician: Marbin Perez Dictated By: Maria C Bender MD Dictated Date/Time: 08/20/23 9:12 am Reviewed By: Miguel Crandall MD Signed By: Miguel Crandall MD Signed Date/Time: 08/20/23 9:17 am Transcribed By: CHERELLE Transcribed Date/Time: 08/20/23 8:54 am * Exam Date Time Procedure Performing Provider Status 08/16/23 10:[address] Head/Brain W/O Contrast Jody Oconnor; Elina (Verified) Notes: (CT Head/Brain W/O Contrast) Reason For Exam: TIA RESULT: CT Head/Brain W/O Contrast CT Head/Brain W/O Contrast INDICATION: Reason: TIA; Clinical Question(s): Infarction; Order Comment: TECHNIQUE: Noncontrast head CT using axial technique and reconstructed in axial and coronal planes.Iterative reconstruction techniques are used to optimize dose and image quality. CTDIvol Head: 48.20 mGy, DLP Head: 773 mGy*cm. COMPARISON: CT head without contrast 08/12/2023 FINDINGS: Budget Technician view findings, lines and tubes: None. BRAIN AND EXTRA-AXIAL SPACES: No parenchymal hemorrhage, midline shift, or mass effect. Zapata-white matter differentiation is wellpreserved. No acute infarct. Negative insular ribbon sign. Atherosclerotic vascular calcification of the carotid arteries but negative hyperdense vessel sign. Unchanged small lacunar infarcts in the right basal ganglia. Moderate prominence of the ventricles and sulci consistent with parenchymal volume loss. Mild low-density white matter changes. No subarachnoid hemorrhage. No subdural or epidural collection. CALVARIUM, SKULL BASE, AND SOFT TISSUES: No fractures or suspicious bony lesions. The paranasal sinuses and mastoid air cells are clear. There is wall thickening of the maxillary sinuses bilaterally, likely sequelae of chronic sinusitis. Visualized orbits and globes are intact. The extracranial soft tissues are unremarkable. IMPRESSION: No acute intracranial pathology. No interval change from 08/12/2023. WSN: [id number] Ordering Physician: Misha Rocha Dictated By: Harris Reyes MD Dictated Date/Time: 08/16/23 11:00 a Reviewed By: Harris Reyes MD Signed By: Harris Reyes MD Signed Date/Time: 08/16/23 11:00 am Transcribed By: CSBryant Transcribed Date/Time: 08/16/23 10:55 am * Exam Date Time Procedure Performing Provider Status 08/14/23 4:02 PM MRI Brain W+W/O Contrast Denae Martin ; Elina (Verified) Notes: (MRI Brain W+W/O Contrast) Reason For Exam: EEG concerning for seizure.;Behavior Problem RESULT: MRI Brain W+W/O Contrast MRI Brain W+W/O Contrast INDICATION / CLINICAL QUESTION: Reason: Behavior Problem; EEG concerning for seizure.; Clinical Question(s): Other:; Order Comment: Seizure protocol. Please see Reference Text for complete list of contraindications Other: TECHNIQUE: MRI of the brain was performed with and without contrast utilizing sagittal and axial T1, axial T2, axial FLAIR, coronal T2, coronal FLAIR, axial SWAN, and axial DWI sequences, and post-contrast 3D T1 CORNELL with multiplanar reformats. 20 mL of Clariscan was administered intravenously. COMPARISON: CT head 08/12/2023. FINDINGS: Multiple images are blurred by motion artifact, which obscures fine detail. BRAIN and EXTRA-AXIAL SPACES: There is a small focus of restricted diffusion in the left anterior cerebellum (4:30), with corresponding T2 prolongation (6:30). There may be additional punctate focus of diffusion abnormality in the posterior left cerebellum (4:3 2), though this could be artifactual due to susceptibility effect from the adjacent temporal bone and motion artifact, not confirmed on ot her sequences. There is no evidence of mass effect, midline shift, or effacement of basal cisterns.No acute or space-occupying hematoma is seen. Punctate focus of chronic microhemorrhage is noted inthe right thalamus. Multiple chronic lacunar infarcts are present, including in bilateral basal ganglia, bilateral thalami, and bilateral alma, as well as in the centrum semiovale on each side. A small focus of encephalomalacia is also seen in the anterior left temporal lobe with a small cortical defect. Moderate patchy foci of T2 prolongation are seen in the periventricular, deep, and subcortical white matter. The midline structures are unremarkable. The mesial temporal lobes are grossly normal and symmetricin signal and caliber, though detailed evaluation is significantly degraded by motion. No gross cortical dysplasia or heterotopia is identified. Ventricles, cisterns, and sulci are moderately prominent, consistent with volume loss, without hydrocephalus. No abnormal extra-axial fluid collections are seen. Meningeal surfaces are normal. No abnormal intracranial enhancement is seen. Major intracranial flow voids are present. EXTRACRANIAL SOFT TISSUES: Orbits are unremarkable. Paranasal sinuses and mastoids are unremarkable. BONES: Marrow signal is preserved. IMPRESSION: 1. Small focus of acute infarction in the left cerebellum. No mass effect or hemorrhage. 2. Chronic findings including multiple small chronic lacunar infarcts in bilateral basal ganglia, thalami, alma, and centrum semiovale; small area of chronic encephalomalacia in the anterior left temporal lobe; punctate microhemorrhage in the right thalamus; along with moderate T2/FLAIR hyperintense signal in the white matter, likely reflecting chronic small vessel disease. 3. Note that sensitivity of the examination is decreased by motion artifact. An actionable message ([place]) has been communicated via the [place] system on 08/14/2023 4:28 PM, Message ID [id number]. WSN: [id number] Ordering Physician: Misha Rocha Dictated By: Tish Perry MD Dictated Date/Time: 08/14/23 4:28 pm Reviewed By: Tish Perry MD Signed By: Tish Perry MD Signed Date/Time: 08/14/23 4:28 pm Transcribed By: CHERELLE Transcribed Date/Time: 08/14/23 4:06 pm * Exam Date Time Procedure Performing Provider Status 08/12/23 5:[address] Head-Hyper Acute Stroke Naomi Ha ei; Auth (Verified) Notes: (CT Head-Hyper Acute Stroke) Reason For Exam: Stroke;Other: RESULT: CT Head-Hyper Acute Stroke PROCEDURE: CT Head-Hyper Acute Stroke CLINICAL INDICATION: 72 years old Male with recent trauma, change in mental status Stroke; ClinicalQuestion(s): Other:; Hematoma Infarction. COMPARISON: Unenhanced head CT August 10, 2023. TECHNIQUE: Unenhanced head CT performed with 5 mm contiguous axial images. Coronal reformations also performed. 1.2 mm axial reconstructions using bone algorithm are also provided. Age-based protocolwas used to optimize exposure parameters. CTDIvol Head: 45.70 mGy, DLP Head: 773 mGy*cm. FINDINGS: Brain: Small lacunar infarct in the head of the RIGHT carotid nucleus measuring 0.5 cm, and other in the anterior RIGHT basal ganglia measuring also 0.5 cm. Moderate unchanged patchy areas of decreased attenuation in the periventricular and subcortical white matter of the cerebral hemispheres, in apatient of this age likely the sequela of chronic microvascular ischemia. No other areas of abnormal parenchymal attenuation or space occupying lesions. Extraaxial spaces: Moderate unchanged cortical cerebral and cerebellar atrophy. No evidence of hydrocephalus. No extra-axial hemorrhage, fluid collections or masses. Severe degree of if intracranial arterial calcifications. Visualized orbits: Unremarkable as visualized, portions of the LEFT orbit not included. Paranasal sinuses and mastoids: Paranasal sinuses are clear as visualized except for minimal mucosal thickening in the visualized maxillary sinuses. Mastoid air cells are clear bilaterally. Cerumen in the external ear canals bilaterally again noted. Calvarium: No evidence of fracture. IMPRESSION: 1. No evidence of acute intracranial abnormality. Small old lacunar infarcts in the RIGHT basal ganglia and head of the caudate nucleus unchanged. 2. Unchanged moderate atrophy and moderate white matter ischemic changes. Thank you for allowing me to participate in the care of this patient. WSN: [id number] Ordering Physician: Rosa Mcclellan Dictated By: Bernardino May MD Dictated Date/Time: 08/12/23 6:07 pm Reviewed By: Bernardino May MD Signed By: Bernardino May MD Signed Date/Time: 08/12/23 6:07 pm Transcribed By: CHERELLE Transcribed Date/Time: 08/12/23 6:04 pm * Exam Date Time Procedure Performing Provider Status 08/10/23 1:[address] Cervical Spine W/O Contrast Malgorzata Michel; Auth (Verified) Notes: (CT Cervical Spine W/O Contrast) Reason For Exam: Neck trauma, dangerous injury mechanism;Other: RESULT: CT Cervical Spine W/O Contrast CT Cervical Spine W/O Contrast Reason: 72-year-old male status post unwitnessed fall, Neck trauma. Clinical Question(s): Fracture Dislocation TECHNIQUE: Spiral CT of the cervical spine without contrast, formatted in 3 planes. Weight-based protocol using automatic tube modulation was used to optimize exposure parameters. RADIATION DOSE PARAMETERS: CTDIvol Body: 18.30 mGy, DLP Body: 469 mGy*cm. COMPARISON: None. FINDINGS: Spine: No acute fracture or dislocation. The alignment is maintained. Mild decreased C6-7 disc height and multilevel endplate spurring. Mild degenerative endplate changes at all levels without loss of theseheight. Anterior and posterior annular calcifications noted throughout the cervical spine. No locked or perched facet. Ligamentum flavum calcifications noted at several levels in the upper cervical spine. Disc/ossify complexes and facet hypertrophy as well as uncovertebral hypertrophy cause moderate bilateral neural foraminal narrowing at C6-C7. Soft tissues and lung apices: Minimal dependent atelectasis. Mild paraseptal emphysema RIGHT upper lobe. Moderate arterial calcifications including the carotid arteries.. IMPRESSION: No evidence of acute bony injuries. Significant degenerative changes with neural foraminal narrowing as described. Moderate arterial calcifications. RIGHT upper lobe paraseptal emphysema. I have personally reviewed the images and I agree with this report. WSN: [id number] Ordering Physician: Natalie Poole Dictated By: Caty Prado MD Dictated Date/Time: 08/10/23 7:43 pm Reviewed By: Bernardino May MD Signed By: Bernardino May MD Signed Date/Time: 08/10/23 7:48 pm Transcribed By: CHERELLE Transcribed Date/Time: 08/10/23 7:36 pm * Exam Date Time Procedure Performing Provider Status 08/10/23 1:45 PM Pelvis 1 or 2 Views Marina Kwan (Verified) Notes: (Pelvis 1 or 2 Views) Reason For Exam: with Pain;Trauma RESULT: Pelvis 1 or 2 Views Pelvis 1 or 2 Views Reason: Trauma; with Pain; Clinical Question(s): Fracture COMPARISON: None. FINDINGS: Single AP view of the pelvis is somewhat limited due to positioning. No fractures or suspicious osseous lesions are seen. There are mild degenerative changes. IMPRESSION: No acute osseous abnormalities are identified. WSN: [id number] Ordering Physician: Natalie Poole Dictated By: Alfie Marie MD Dictated Date/Time: 08/10/23 4:45 pm Reviewed By: Alfie Marie MD Signed By: Alfie Marie MD Signed Date/Time: 08/10/23 4:45 pm Transcribed By: CHERELLE Transcribed Date/Time: 08/10/23 4:44 pm * Exam Date Time Procedure Performing Provider Status 08/10/23 1:[address] Abd/Pelvis W/ IV Contrast Only Malgorzata Herrera; Auth (Verified) Notes: (CT Abd/Pelvis W/ IV Contrast Only) Reason For Exam: Abd trauma, blunt;Other: RESULT: CT Abd/Pelvis W/ IV Contrast Only CT Chest W/ Contrast, CT Abd/Pelvis W/ IV Contrast Only INDICATION: Reason: Other:; Chest trauma, blunt; Clinical Question(s): Other:; Aortic hilar injury TECHNIQUE: Helical CT scan of the chest, abdomen, and pelvis with IV contrast, formatted in 3 planes. 100 cc of Omnipaque 300 was administered intravenously. This study was performed without oral contrast. Weight-based protocol was performed using automatic exposure control. COMPARISON: None. FINDINGS: Budget Technician view findings, lines and tubes: None. Trachea and airways: Patent without evidence of tracheal or endobronchial lesion. Lungs and pleura: Area of opacity within the lingula and superior segment of the left lower lobe. Bibasilar atelectasis. No effusion or pneumothorax. Mediastinum and kwaku: No mass or hematoma. No mediastinal or hilar lymphadenopathy. No esophageal abnormality. Small hiatal hernia. Heart: Heart is enlarged. No pericardial effusion. Aorta: No aortic aneurysm. Pulmonary arteries: Normal caliber. No evidence of pulmonary embolism on this study performed without angiographic technique. Chest wall soft tissues: No acute abnormality. Diaphragm: Intact. Liver: Normal in attenuation and morphology. No suspicious lesion. Gallbladder: No CT evidence of gallbladder pathology. Bile ducts: No biliary ductal dilation. Spleen: Normal in size. Pancreas: No suspicious lesion or ductal dilatation. Adrenal glands: No nodule. Kidneys and ureters: No hydronephrosis or hydroureter. There is a 3 mm stone in the midpole of the right kidney. There is a 1.2 cm exophytic lesion in the midpole of the right kidney. There is a cystwithin the lower pole of the right kidney. Bladder: There is bladder wall thickening with adjacent stranding. Reproductive organs: Unremarkable. Stomach, small bowel, and large bowel: There are a few scattered diverticula within the sigmoid colon. There is mild fecal impaction within the rectosigmoid colon. Moderate amount of stool throughoutthe colon. Appendix: No evidence of acute appendicitis. Peritoneum and retroperitoneum: No ascites or pneumoperitoneum. No omental or mesenteric lesions. Lymph nodes: No enlarged lymph nodes. Blood vessels: No vascular calcifications or aneurysm. No evidence of venous thrombosis. Abdominal and pelvic wall soft tissues: No acute abnormality. Bones: No acute abnormality. IMPRESSION: Lingular and left lower lobe area of atelectasis, pulmonary contusion, or pneumonia. 1.2 cm enhancing exophytic lesion within the midpole of the right kidney concerning for neoplastic process. Recommend MRI with gadolinium for better evaluation. Likely cystitis. Moderate amount of stool throughout the colon. Mild diverticulosis of the sigmoid colon. An actionable message ([place]) has been communicated via the [place] system on 08/10/2023 2:28 PM, Message ID [id number]. WSN: [id number] Ordering Physician: Natalie Poole Dictated By: Ayan Khanna MD Dictated Date/Time: 08/10/23 2:28 pm Reviewed By: Ayan Khanna MD Signed By: Ayan Khanna MD Signed Date/Time: 08/10/23 2:28 pm Transcribed By: CHERELLE Transcribed Date/Time: 08/10/23 2:08 pm * Exam Date Time Procedure Performing Provider Status 08/10/23 1:[address] Chest W/ Contrast Malgorzata Michel; Elina (Verified) Notes: (CT Chest W/ Contrast) Reason For Exam: Chest trauma, blunt;Other: RESULT: CT Chest W/ Contrast CT Chest W/ Contrast, CT Abd/Pelvis W/ IV Contrast Only INDICATION: Reason: Other:; Chest trauma, blunt; Clinical Question(s): Other:; Aortic hilar injury TECHNIQUE: Helical CT scan of the chest, abdomen, and pelvis with IV contrast, formatted in 3 planes. 100 cc of Omnipaque 300 was administered intravenously. This study was performed without oral contrast. Weight-based protocol was performed using automatic exposure control. COMPARISON: None. FINDINGS: Budget Technician view findings, lines and tubes: None. Trachea and airways: Patent without evidence of tracheal or endobronchial lesion. Lungs and pleura: Area of opacity within the lingula and superior segment of the left lower lobe. Bibasilar atelectasis. No effusion or pneumothorax. Mediastinum and kwaku: No mass or hematoma. No mediastinal or hilar lymphadenopathy. No esophageal abnormality. Small hiatal hernia. Heart: Heart is enlarged. No pericardial effusion. Aorta: No aortic aneurysm. Pulmonary arteries: Normal caliber. No evidence of pulmonary embolism on this study performed without angiographic technique. Chest wall soft tissues: No acute abnormality. Diaphragm: Intact. Liver: Normal in attenuation and morphology. No suspicious lesion. Gallbladder: No CT evidence of gallbladder pathology. Bile ducts: No biliary ductal dilation. Spleen: Normal in size. Pancreas: No suspicious lesion or ductal dilatation. Adrenal glands: No nodule. Kidneys and ureters: No hydronephrosis or hydroureter. There is a 3 mm stone in the midpole of the right kidney. There is a 1.2 cm exophytic lesion in the midpole of the right kidney. There is a cystwithin the lower pole of the right kidney. Bladder: There is bladder wall thickening with adjacent stranding. Reproductive organs: Unremarkable. Stomach, small bowel, and large bowel: There are a few scattered diverticula within the sigmoid colon. There is mild fecal impaction within the rectosigmoid colon. Moderate amount of stool throughoutthe colon. Appendix: No evidence of acute appendicitis. Peritoneum and retroperitoneum: No ascites or pneumoperitoneum. No omental or mesenteric lesions. Lymph nodes: No enlarged lymph nodes. Blood vessels: No vascular calcifications or aneurysm. No evidence of venous thrombosis. Abdominal and pelvic wall soft tissues: No acute abnormality. Bones: No acute abnormality. IMPRESSION: Lingular and left lower lobe area of atelectasis, pulmonary contusion, or pneumonia. 1.2 cm enhancing exophytic lesion within the midpole of the right kidney concerning for neoplastic process. Recommend MRI with gadolinium for better evaluation. Likely cystitis. Moderate amount of stool throughout the colon. Mild diverticulosis of the sigmoid colon. An actionable message ([place]) has been communicated via the [place] system on 08/10/2023 2:28 PM, Message ID [id number]. WSN: [id number] Ordering Physician: Natalie Poole Dictated By: Ayan Khanna MD Dictated Date/Time: 08/10/23 2:28 pm Reviewed By: Ayan Khanna MD Signed By: Ayan Khanna MD Signed Date/Time: 08/10/23 2:28 pm Transcribed By: CHERELLE Transcribed Date/Time: 08/10/23 2:08 pm * Exam Date Time Procedure Performing Provider Status 08/10/23 1:[address] Head-Hyper Acute Stroke Col alessandro Michel; Auth (Verified) Notes: (CT Head-Hyper Acute Stroke) Reason For Exam: Head trauma, mod-severe;Other: RESULT: CT Head-Hyper Acute Stroke CT Head-Hyper Acute Stroke INDICATION: Reason: Other:; Head trauma, mod-severe; Clinical Question(s): Hematoma TECHNIQUE: Noncontrast head CT using axial technique and reconstructed in axial and coronal planes.Iterative reconstruction techniques are used to optimize dose and image quality. CTDIvol Body: 13.85 mGy, DLP Body: 1719 mGy*cm. CTDIvol Head: 47.40 mGy, DLP Head: 773 mGy*cm. COMPARISON: None. FINDINGS: Budget Technician view findings, lines and tubes: None. BRAIN AND EXTRA-AXIAL SPACES: No parenchymal hemorrhage, midline shift, or mass effect. Zapata-white matter differentiation is wellpreserved. No acute infarct. Mild prominence of the ventricles and sulci consistent with parenchymal volume loss. Moderate low-density white matter changes. No subarachnoid hemorrhage. No subdural or epidural collection. CALVARIUM, SKULL BASE, AND SOFT TISSUES: No fractures or suspicious bony lesions. The paranasal sinuses and mastoid air cells are clear. Visualized orbits and globes are intact. The extracranial soft tissues are unremarkable. IMPRESSION: No acute intracranial pathology. WSN: [id number] Ordering Physician: Natalie Poole Dictated By: Leonel King MD Dictated Date/Time: 08/10/23 2:09 pm Reviewed By: Leonel King MD Signed By: Leonel King MD Signed Date/Time: 08/10/23 2:09 pm Transcribed By: CHERELLE Transcribed Date/Time: 08/10/23 2:07 pm * Exam Date Time Procedure Performing Provider Status 08/10/23 1:[address] Angio Neck Hyperacute Stroke Malgorzata Michel; Elina (Verified) Notes: (CT Angio Neck Hyperacute Stroke) Reason For Exam: Aneurysm, neck vessel(s);Other: RESULT: CT Angio Neck Hyperacute Stroke CT Angio Head Hyperacute Stroke, CT Angio Neck Hyperacute Stroke Reason: Other:; Stroke; found unable to talk Clinical Question(s): Other:; Hematoma Aneurysm / Other: TECHNIQUE: CT angiogram of the head and neck was performed after bolus administration of intravenous contrast. 100 mL of Omnipaque 300 was administered intravenously. Coronal and sagittal MIP reformatted images were obtained. Additional 3-D images were created on a separate workstation under concurrent supervision by the attending radiologist. All stenoses are measured using NASCET criteria. Weight-based protocol using automatic tube modulation was used to optimize exposure parameters. RADIATION DOSE PARAMETERS: CTDIvol Body: 13.85 mGy, DLP Body: 1719 mGy*cm. CTDIvol Head: 47.40 mGy, DLP Head: 773 mGy*cm. COMPARISON: Noncontrast CT head performed concurrently. FINDINGS: CTA OF THE NECK: Arch: There is a three vessel aortic arch. The origins of the supra aortic vessels are patent. Right carotid system: Visualization is mildly limited by suboptimal opacification. There is calcified plaque present at the bifurcation. There is no evidence of significant stenosis or dissection. Left carotid system: Visualization is mildly limited by suboptimal opacification. Calcified plaque is present at the bifurcation without significant stenosis. There is no evidence of dissection. There is a co-dominant vertebral artery system. Right vertebral: Calcified plaque at the origin produces a 50-75% stenosis. A small amount of calcified plaque is present at the C5 level without definite stenosis. Additional calcified plaque is present at the C3 level. No focal stenosis or dissection is noted and the vessel extends intracranially. Left vertebral: Visualization is mildly limited by streak artifact. The origin is not well seen. Minor calcified plaque is present in the P1 segment without stenosis. The remainder of the vessel is normal. Other: Soft tissues and bones: No evidence of lymphadenopathy or mass. CTA OF THE HEAD: Anterior circulation: There is extensive calcification of the intracranial internal carotid arteries with stenosis of approximately 50% to present bilaterally. The anterior and middle cerebral arteries are normal. Posterior circulation: The intracranial vertebral arteries are normal. A small amount of calcified plaque is present in the mid basilar artery without stenosis. The superior cerebellar arteries are normal. There is mild narrowing of the P2 segment of the right posterior cerebral artery. The left posterior cerebral arises predominantly through the posterior communicating artery. Veins: Major dural venous sinuses are patent. Other: Soft tissues and bones: No midline shift or effacement of the basal cisterns. No space-occupying hemorrhage. No territorial loss of zapata-white matter differentiation. IMPRESSION: 1. Mildly limited examination due to suboptimal opacification. 2. No evidence of stenosis or vessel injury involving the anterior circulation. 3. 50-75% stenosis at the origin of the right vertebral artery. No focal stenosis or dissection is demonstrated elsewhere in either vertebral artery. 4. No significant intracranial abnormality is demonstrated. WSN: [id number] Ordering Physician: Natalie Poole Dictated By: Payam Alvarenga MD Dictated Date/Time: 08/10/23 2:16 pm Reviewed By: Payam Alvarenga MD Signed By: Payam Alvarenga MD Signed Date/Time: 08/10/23 2:16 pm Transcribed By: CHERELLE Transcribed Date/Time: 08/10/23 2:04 pm Vital Signs Most recent to oldest [Reference Range]: 1 2 3 Weight 96.5 kg (08/20/23 10:55 PM) 97.2 kg (08/17/23 8:05 AM) 98.9 kg (08/12/23 9:17 AM) Oxygen Saturation [94-100 %] 98 % (08/21/23 8:00 AM) 95 % (08/21/23 3:54 AM) 100 % (08/20/23 10:55 PM) Pulse Rate [55-90 bpm] 62 bpm (08/21/23 8:00 AM) 60 bpm (08/21/23 3:54 AM) 62 bpm (08/20/23 10:55 PM) Blood Pressure [90-138/55-84 mm Hg] 155/71mm Hg *H* (08/21/23 10:07 AM) 155/71mm Hg *H* (08/21/23 8:00 AM) 162/76mm Hg *H* (08/21/23 3:54 AM) Respiratory Rate [16-30 br/min] 18 br/min (08/21/23 8:00 AM) 16 br/min (08/21/23 3:54 AM) 16 br/min (08/20/23 10:55 PM) Temperature [96.8-100.4 DegF] 97.4 DegF (08/21/23 8:00 AM) 97.7 DegF (08/21/23 3:54 AM) 97.4 DegF (08/20/23 10:55 PM) Liters per Minute 2 L/min (08/17/23 12:00 PM) 2 L/min (08/17/23 10:00 AM) 2 L/min (08/17/23 8:00 AM) Mode of Delivery (Oxygen) Room air (08/21/23 8:00 AM) Room air (08/21/23 3:54 AM) Room air (08/20/23 10:55 PM) Blood pressure sites Arm, left (08/21/23 8:00 AM) Arm, left (08/21/23 3:54 AM) Arm, left (08/20/23 10:55 PM) Temperature Route Oral (08/21/23 8:00 AM) Oral (08/21/23 3:54 AM) Oral (08/20/23 10:55 PM) Weight Obtained Via Bed scale (08/20/23 10:55 PM) Consult note * Andi PRADO, Will Chisholm: PERFORM, MODIFY, MODIFY Event Display: Consultation Note Authored Date: Patient: ??ARGENTINA PIPER ? Age:??72 Years?Sex:??Male?:??1950?? Chief Complaint/Reason for Consult see trauma flowsheet History of Present Illness 72yo M with h/o CVA with residual left hemiparesis, DM, CAD, COPD, CKD, Schizophrenia, resident of [facility] had a reported unwitnessed fall and was found altered. He was brought to the ED and GCS [address] head showed nothing acute. CT C spine showed degenerative changes but no fracture or dislocation.??Neurology was consulted for consideration of seizure. Laboratory results showed leukocytosis and elevated lactate. He was hypothermic. EEG showed potential left temporal epileptic sharp waves. He was started on Keppra. CT chest/abd/pelvis showed left lower lobe pneumonia and potential right kidney mass. MRI brain showed multiple bilateral chronic infarcts and a small acute le ft cerebellar infarct.??He was seen by PT and he required max assist for bed mobility and transfers. Speech evaluated and was placed on dysphagia 3 with thin liquids but he has had waxing and waning mental status so he was downgraded today to purees with nectar thick liquids. The patient has had noprior encounters with [facility] and he is a poor historian. His baseline functional status isunknown.??I spoke to Dez at [facility] and the patient is non-ambulatory and requires assist of2 to transfer to a Wheelchair. He requires asistance with all ADLs. His diet is pureed with thin liquids. He is continent of bowel and bladder usually . He has been admitted there since December 2022. Pt's NOK is his daughter who lives in [place]. Review of Systems 14 point review of systems negative except as noted above in HPI. Physical Exam Vitals & Measurements T:??96.9?F?? HR:??55??(Monitored)?? RR:??22?? BP:??115/59?? SpO2:??94%?? WT:??97.2??kg?? Gen: Alert, oriented to self only.?? HEENT: pupils sluggish bilat. Tracking bilat CV: Reg, no murmurs Chest: CTA bilat Abd: +BS, soft, NT Exts: trace pedal edema Neuro: CN II-XII intact except mild left droop.?? RUE and??RLE??at least??4/5 LUE:??shoulder??is??2/5--limited by pain.??Bi, Tri,??and administrative aide are at least 3/5.?? LLE:??antigravity.?? Babinski:??+ on left Sensory: no extinction DTRs: brisker on left; minimal tone ?? Speech/Language: moderate dysarthria, able to name and repeat with delay.?? Mobility: not assessed.? Assessment/Plan 72yo M with complex medical history resident of SNF was found down and altered. Imaging revealed a new acute left cerebellar small infarct, incidental renal mass, and seizure activity seen on EEG. Pt has a h/o CVA with residual left hemiparesis. He is non-ambulatory at baseline and requires assist of 2 to transfer to wheelchair. ? Recommendations: ?? Activity:[Mobilize with PT]. Only to focus on bed mobility and transfers. Bowel Regimen: [Monitor on current regimen]?? Bladder:??[Bladder scan for post void residual Q shift X 3 to rule out retention. Straight cath if > 250 ml.] Cognition/psychopharmacology: ??[Avoid benzos, anticholinergics and antihistaminergics because of age].??Defer to??Psychiatry??with his??prior h/o Schizophrenia. DVT prophylaxis: [Eliquis] ?? Neurology: [Appreciate Neurology Note]. Pain Management: [Appears comfortable].?? Spasticity:??Some minimal tone on left--monitor for now. ?? Swallow: He is on pureed diet with thin liquids at baseline--notified Evelyn from speech. ?? Current rehab treatment & further recommendations: Occupational Therapy:??not needed. Physical Therapy: following; only to focus on bed mobility and transfers. Speech Therapy:??[Currently receiving]. Only for swallow. ?? Disposition: Back to SNF. ?? Code Status:??No Resuscitation HCP:[No HCP in [facility]] I reviewed his paper chart on the unit. He has legal documents in??the file??referring to a legal guardian already appointed. Will defer to case mgmt and social work if these are legitimate. Total time 90 minutes. D/w nursing, speech therapy, and case mgmt. Problem List/Past Medical History Ongoing No qualifying data Procedure/Surgical History No qualifying data available. Home Medications Acetaminophen: 650 mg = 2 capsule, By Mouth, Every 8 hours, PRN (Pain , Mild, fever) Acetaminophen: 650 mg = 1 supp, Rectally, Every 8 hours, PRN (Pain , Mild, fever) Amlodipine: 10 mg = 1 tablet, By Mouth, Daily in AM Cholecalciferol: 50 mcg = 1 tablet, By Mouth, Daily in AM Docusate: 200 mg = 2 capsule, By Mouth, Daily Finasteride: 5 mg = 1 tablet, By Mouth, Daily in AM Folic Acid: 1 mg = 1 tablet, By Mouth, Daily in AM Glucagon: 1 mg, Subcutaneous Injection, Once, PRN (Hypoglycemia) Glucose: See Instructions, gel BS <60 with S/S (if resident is able to take by mouth) give glucose 1 tube by mouth - recheck & retreat every 15min until greater than 100 BS Multivitamin: 1 tablet, By Mouth, Daily in AM Polyethylene Glycol 3350: 17 Gm, By Mouth, Daily, dissolve in water before taking Senna: 17.2 mg = 2 tablet, By Mouth, Daily, PRN (for constipation) Sucralfate: 1 Gm = 1 tablet, By Mouth, 3 times a day before meals Hospital Medications Medications (30) Active SCHEDULED: (16) Apixaban 5 mg Tablet (Apixaban Tablet) ??5 mg, By Mouth, 2 times a day Atorvastatin 20 mg Tablet (Lipitor 20 mg oral tablet) ??20 mg, By Mouth, Daily at bedtime Benztropine 1 mg Tablet (benztropine 1 mg oral tablet) ??1 mg, By Mouth, 2 times a day Finasteride 5 mg Tablet (finasteride 5 mg oral tablet) ??5 mg, By Mouth, Daily Folic Acid 1 mg Tablet (folic acid 1 mg oral tablet) ??1 mg, By Mouth, Daily Insulin Lispro 100 units/mL Inj (3mL) (Insulin LISPRO Sliding Scale) ??2-10 units, Subcutaneous Injection, Every 6 hours Isosorbide Mononitrate 30 mg ER Tablet (Imdur 30 mg oral tablet, extended release) ??30 mg, By Mouth, Daily Levetiracetam 100mg/ml IVPB (Keppra Inj) ??500 mg, IV Push Slowly, Once Levetiracetam 100mg/ml IVPB (Keppra Inj) ??250 mg, IV Push Slowly, Every 12 hours Levothyroxine 100 mcg Tablet (Synthroid 0.1 mg oral tablet) ??100 mcg, By Mouth, Daily NaCl 0.9% Flush 3ml (NaCL 0.9% Flush) ??3 mL, IV Push, Every 8 hours Olanzapine 5 mg Tablet (olanzapine 5 mg oral tablet) ??5 mg, By Mouth, Daily at bedtime Piperacillin/Tazobactam 3.375 Gm Inj (Zosyn Extended IVPB) ??3.375 Gm, IVPB, Every 8 hours Risperidone 1 mg Tablet (risperiDONE 1 mg oral tablet) ??3 mg, By Mouth, Daily at bedtime Risperidone 1 mg Tablet (risperiDONE 1 mg oral tablet) ??2 mg, By Mouth, Daily in AM Tamsulosin 0.4 mg Capsule (tamsulosin 0.4 mg oral capsule) ??0.8 mg, By Mouth, Daily CONTINUOUS: (1) D5% / NaCL 0.9% (1000 mL) Cont IV 1,000 mL (D5%/NaCl 0.9% 1,000 mL) ??1,000 mL, IV Infusion, 75 mL/hr PRN: (13) Acetaminophen 325 mg Tablet (Acetaminophen Tablet) ??650 [...] ??30 Gm, By Mouth, Every 20 minutes Haloperidol 5 mg Tablet (haloperidol 5 mg oral tablet) ??5 mg, By Mouth, 3 times a day Lorazepam 2 mg Inj Syringe (Ativan Inj) ??0.5 mg, IV Push Slowly, Once Melatonin 3 mg Tablet (Melatonin Tablet) ??3 mg, By Mouth, Daily at bedtime NaCl 0.9% Flush 3ml (NaCL 0.9% Flush) ??3 mL, IV Push, Every 8 hours Polyethylene Glycol 17 Gm Powder (MiraLax Powder) ??17 Gm 1 pack/packet, By Mouth, Daily Senna Tablet ??8.6 mg 1 tablet, By Mouth, 2 times a day Radiology (08/14/2023 16:02 EST MRI Brain W+W/O Contrast) IMPRESSION: ?? 1. ??Small focus of acute infarction in the left cerebellum. No mass effect or hemorrhage. 2. ??Chronic findings including multiple small chronic lacunar infarcts in bilateral basal ganglia,thalami, alma, and centrum semiovale; small area of chronic encephalomalacia in the anterior left temporal lobe; punctate microhemorrhage in the right thalamus; along with moderate T2/FLAIR hyperintense signal in the white matter, likely reflecting chronic small vessel disease. 3. ??Note that sensitivity of the examination is decreased by motion artifact. [1] Lab Results PM&R Labs ?? Tox Screen?? WBC: 7.6 k/mm3 (08/17/23) Ethanol, Serum or Plasma: NONE DETECTED (08/10/23) Platelet Count: 179 k/mm3 (08/17/23) Barbiturate Screen, Urine: NONE DETECTED (08/10/23) Sodium: 144 mmol/L (08/17/23) Cannabinoid Screen, Urine: NONE DETECTED (08/10/23) BUN:??40 mg/dL??High (08/17/23) Cocaine Metabolite Screen, Urine: NONE DETECTED (08/10/23) Creatinine-Blood:??2.9 mg/dL??High (08/17/23) Benzodiazepine Screen, Urine: NONE DETECTED (08/10/23) Ethanol, Serum or Plasma: NONE DETECTED (08/10/23) Amphetamine Screen, Urine: NONE DETECTED (08/10/23) Barbiturate Screen, Urine: NONE DETECTED (08/10/23) Opiate Screen, Urine: NONE DETECTED (08/10/23) Cannabinoid Screen, Urine: NONE DETECTED (08/10/23) ?? Cocaine Metabolite Screen, Urine: NONE DETECTED (08/10/23) ?? Benzodiazepine Screen, Urine: NONE DETECTED (08/10/23) ?? Amphetamine Screen, Urine: NONE DETECTED (08/10/23) ?? Opiate Screen, Urine: NONE DETECTED (08/10/23) ?? AST (SGOT): 17 units/L (08/15/23 08:01:00) AST (SGOT): 21 units/L (08/10/23 16:03:00) ALT (SGPT): 15 units/L (08/15/23 08:01:00) ALT (SGPT): 18 units/L (08/10/23 16:03:00) [1]??MRI Brain W+W/O Contrast; Orlando PRADO, Tish Jc 08/14/2023 16:02 EST * Laurie PRADO, Cata Russ: PERFORM, MODIFY, MODIFY Event Display: Consultation Note Authored Date: Patient: ??ARGENTINA PIPER ? Age:??72 Years?Sex:??Male?:??1950?? Chief Complaint see trauma flowsheet Reason for Consultation Consult type: Endocrine Reason for consultation:???myxedema coma Requesting provider: Valerie Umanzor MD History of Present Illness [place] is a 72-year-old male with past medical history of CVA with left hemiplegia, cognitive impairment, A-fib on Eliquis, diabetes, hypertension, BPH, COPD, coronary artery disease, hyperlipidemia, peripheral vascular disease, depression, GERD, CKD, and schizophrenia who was admitted to [facility] from his long-term care facility after having an unwitnessed fall and noted to be nonverbal afterwards.?? Course has been complicated by hypothermia, bradycardia, lethargy, and hypoglycemia with concern for myxedema coma for which endocrine was consulted. ?? When he initially presented to the emergency room, he was nonverbal and hypothermic but his vitals were otherwise stable.?? He had an elevated lactate of 4.5 and leukocytosis to 17.1.?? CT head was normal and CTA of the head and neck showed right vertebral stenosis.?? Imaging revealed a possible lingular pneumonia and he was started on ceftriaxone and azithromycin.?? Echocardiogram was completed which revealed left atrial severe dilation with preserved ejection fraction.?? After admission, patient was noted to have seizure activity and was started on Keppra.?? Repeat head CT only revealed chronic and stable lacunar infarcts in the right basal ganglia and head of the caudate nucleus as well as moderate atrophy.?? EEG was performed which showed focal left temporal irritation concerning for seizure focus.?? This was followed by a brain MRI which showed a small focus of acute infarction left cerebellum likely embolic from A-fib. ?? Her course was further complicated by an episode of decreased responsiveness as well as hypothermiato a veronika of 89 ??F and bradycardia in the high 40s???low 50s.?? This, patient was noted to be hypoglycemic to 46 so his basal insulin was stopped.?? Because of his significant hypothermia and altered mental status, labs were drawn which revealed a stable CBC without leukocytosis, stable kidney function and normal electrolytes, and most notably TSH elevated to 13.6, free T4 1.12, and free T3 2.0.?? Out of concern for possible myxedema coma, patient was given a dose of levothyroxine 50 mcg IV and hydrocortisone 100 mg IV.?? Blood cultures were also collected and have been negative thus far. ??His mental status seemed to improve and temperature normalized with a bear hugger.?? He was then continued on hydrocortisone 50 mg IV daily and levothyroxine 50 mcg IV daily. ?? Today per nursing, patient was initially lethargic in the morning and only responded to sternal rub.?? However, his mental status improved over the course of the day and on exam he was awake and responsive.?? However, his speech was slurred and he was only oriented to self and place. Review of Systems Negative except for above Physical Exam Vitals & Measurements T:??97.1?F?? TMIN:??96.0?F?? TMAX:??97.5?F?? HR:??48??(Peripheral)?? RR:??16?? BP:??129/66?? SpO2:??100%?? WT:??97.2??kg?? Constitutional: Alert, in no distress. Mental Status: Oriented to person and place (hospital, did not know the name or town) Neck: Supple, Full range of motion. Respiratory: Breathing comfortably on room air. Cardiovascular: Bradycardic, well-perfused. Neurologic: L hemiplegia. Dysarthria. Skin: No rashes or lesions. No petechiae or purpura.?? Musculoskeletal: No cyanosis or clubbing. No gross deformities. Normal range of motion. Psychiatric: Normal mood and affect Assessment/Plan Argentina is a 72-year-old male with past medical history of CVA with left hemiplegia, cognitive impairment, A-fib on Eliquis, diabetes, hypertension, BPH, COPD, coronary artery disease, hyperlipidemia, peripheral vascular disease, depression, GERD, CKD, and schizophrenia who was admitted to [facility] from his long-term care facility after having an unwitnessed fall and noted to be nonverbal afterwards.?? Course has been complicated by hypothermia, bradycardia, lethargy, and hypoglycemia with concern for myxedema coma for which endocrine was consulted. ?? Altered mental status Bradycardia Hypothermia Although??patient's TSH was elevated??at the time??of his obtundation and significant hypothermia,??his free T4 was normal??and free T3 only mildly decreased.?? At this time, patient does not meet criteria for myxedema coma.??However, labs may point toward evidence of subclinical hypothyroidism??versus sick euthyroid.?? In light of this,??would stop??steroids altogether for treatment of myxedema coma.?? Since patient has only received??IV steroids for 2 days,??it is safe??to stop them without ataper.?? Additionally, will transition from IV levothyroxine to??p.o. levothyroxine 100 mcg??for subclinical hypothyroidism??and repeat??thyroid labs in 4 to 6 weeks??to monitor for response.?? It remains unclear what was causing??his hypothermia, bradycardia, and altered mental status??but would pursue alternate etiologies??such as infection??if the symptoms persist. ?? Recommendations: ?Stop??steroids ??? Stop IV levothyroxine ??? Start oral thyroxine 100 mcg daily ?Follow-up??thyroid studies in 4 to 6 weeks??and adjust levothyroxine as needed ?Investigate alternate etiologies for??patient's symptoms ?? Patient discussed with Dr. Engel, attending physician. ?? Thank you for consulting endocrinology/diabetes & metabolism. ??We will follow along. ??Please do not hesitate to contact us on tigertext ??with any questions or concerns. ?? Cata Sullivan MD PGY-4 Medicine-Pediatrics p. [phone] Problem List/Past Medical History Ongoing No qualifying data Medications Inpatient Acetaminophen Tablet, 650 mg, By Mouth, Every 4 hours, PRN Apixaban Tablet, 5 mg, By Mouth, 2 times a day Ativan Inj, 0.5 mg, IV Push Slowly, Once, PRN benztropine 1 mg oral tablet, 1 mg, By Mouth, 2 times a day D5%/NaCl 0.9% 1,000 mL, 1000 mL, IV Infusion Dextrose 50% Inj Syringe (25Gm), 12.5 Gm, IV Push Slowly, Every 20 minutes, PRN Dextrose 50% Inj Syringe (25Gm), 25 Gm, IV Push Slowly, Every 15 minutes, PRN Docusate Sodium Capsule, 100 mg= 1 capsule, By Mouth, 2 times a day, PRN finasteride 5 mg oral tablet, 5 mg, By Mouth, Daily folic acid 1 mg oral tablet, 1 mg, By Mouth, Daily Glucagon Inj, 1 mg, Intramuscular, Once, PRN Glucose Gel, 15 Gm, By Mouth, Every 20 minutes, PRN Glucose Gel, 30 Gm, By Mouth, Every 20 minutes, PRN haloperidol 5 mg oral tablet, 5 mg, By Mouth, 3 times a day, PRN HydroCORTisone Inj, 50 mg, IV Push Slowly, Daily Imdur 30 mg oral tablet, extended release, 30 mg, By Mouth, Daily Insulin LISPRO Sliding Scale, 2-10 units, Subcutaneous Injection, Every 6 hours Keppra Inj, 250 mg, IV Push Slowly, Every 12 hours Keppra Inj, 500 mg, IV Push Slowly, Once Levothyroxine Inj, 50 mcg, IV Push Slowly, Daily Lipitor 20 mg oral tablet, 20 mg, By Mouth, Daily at bedtime Melatonin Tablet, 3 mg, By Mouth, Daily at bedtime, PRN MiraLax Powder, 17 Gm= 1 pack/packet, By Mouth, Daily, PRN NaCL 0.9% Flush, 3 mL, IV Push, Every 8 hours NaCL 0.9% Flush, 3 mL, IV Push, Every 8 hours, PRN olanzapine 5 mg oral tablet, 5 mg, By Mouth, Daily at bedtime risperiDONE 1 mg oral tablet, 3 mg, By Mouth, Daily at bedtime risperiDONE 1 mg oral tablet, 2 mg, By Mouth, Daily in AM Senna Tablet, 8.6 mg= 1 tablet, By Mouth, 2 times a day, PRN tamsulosin 0.4 mg oral capsule, 0.8 mg, By Mouth, Daily Zosyn Extended IVPB, 3.375 Gm, IVPB, Every 8 hours Home acetaminophen 325 mg oral capsule, 650 mg= 2 capsule, By Mouth, Every 8 hours, PRN acetaminophen 650 mg rectal suppository, 650 mg= 1 supp, Rectally, Every 8 hours, PRN amLODIPine 10 mg oral tablet, 10 mg= 1 tablet, By Mouth, Daily in AM Carafate 1 gm oral tablet, 1 Gm= 1 tablet, By Mouth, 3 times a day before meals cholecalciferol 2000 intl units oral tablet, 50 mcg= 1 tablet, By Mouth, Daily in AM Colace sodium 100 mg oral capsule, 200 mg= 2 capsule, By Mouth, Daily finasteride 5 mg oral tablet, 5 mg= 1 tablet, By Mouth, Daily in AM folic acid 1 mg oral tablet, 1 mg= 1 tablet, By Mouth, Daily in AM Gvoke HypoPen 1 mg/0.2 mL subcutaneous solution, 1 mg, Subcutaneous Injection, Once, PRN Insta-Glucose 24 g/31 g oral gel, See Instructions MiraLax oral powder for reconstitution, 17 Gm, By Mouth, Daily Multivitamin, 1 tablet, By Mouth, Daily in AM Senna 8.6 mg oral tablet, 17.2 mg= 2 tablet, By Mouth, Daily, PRN Allergies NKA Immunizations Vaccine Date Status SARS-CoV-2 (COVID-19) Ad26 vaccine 06/21/2021 Recorded * Toro PRADO, Issra: PERFORM Event Display: Consultation Note Authored Date: [id number] Attending Attestation : I have discussed the case and seen the patient with the fellow, I agree with the evaluation and treatment plan as outlined in the fellow's note . ?? * Aroldo PRADO, Natalie Sewell: PERFORM, MODIFY Event Display: Consultation Note Authored Date: [id number] Patient: ??ARGENTINA PIPER ? Age:??72 Years?Sex:??Male?:??1950?? Chief Complaint see trauma flowsheet Reason for Consultation Hypothermia and bradycardia History of Present Illness Argentina Piper is a 72-year-old man with history of previous stroke with left hemiplegia, cognitiveimpairment, A-fib on Eliquis, diabetes, hypertension, BPH, COPD, coronary artery disease, hyperlipidemia, peripheral vascular disc, depression, GERD, CKD and schizophrenia who initially presented 08/10 from a long-term care facility where he had an unwitnessed fall, and found to be nonverbal, admitted for neurologic workup. ??Throughout his hospital course,??his neurologic??function??reportedly??returned to baseline aside from??a persistent right facial droop, dysphagia??and??slurred speech, andhe was noted to have a tonic-clonic seizure with??post seizure??left gaze, R hemiparesis and transiently was nonverbal. He is being treated for LLL pneumonia, identified also on admission with CTX and azithromycin, today completing 5 day course. He was started on Keppra,??has been seizure free, and underwent MRI brain last night.??This morning, he was noted to have significantly altered mental status from prior days, not responding to voice, opening eyes or following commands. He was noted to be hypothermic to 95F in the early AM oral/temporal measurements and persistently bradycardic to the 50s. He had been intermittently hypothermic and bradycardic in previous days, but never persistently. Rectal temp at 7am noted to be 89.9F, and external warming measures initiated. ?? Interval findings Vitals: Tmin 89.9F,??later??improved to 92.0F. Sinus bradycardia in 46-60 (lowest on ECG at vent rate 36). SBPs 109-173??and saturating normally on RA Labs: No leukocytosis, WBC 6.8, stable normocytic anemia Hgb 7.1, otherwise unremarkable CBC, lactate 0.6, normal electrolytes with BUN/Cr 42/2.4 (improving from previous). CK 236. TSH 13.60 with free T3 and T4 pending ECG: Marked sinus bradycardia to ventricular rate 36 Abx: primary team broadened to Vanc/Cecy Review of Systems Unable to obtain due to mental status Physical Exam Vitals & Measurements T:??92.0?F?? TMIN:??89.9?F?? TMAX:??97.0?F?? HR:??60??(Peripheral)?? RR:??20?? BP:??118/59?? SpO2:??97%?? Constitutional: Altered mentation, does not respond to voice and minimal withdrawal to pain. Snoring. Mental Status: Unable to obtain Ear, Nose and Throat: Oropharynx clear, mucous membranes moist. Neck: Supple, Full range of motion. Respiratory: Clear to auscultation. No wheezing, rales or rhonchi. Cardiovascular: Mildly bradycardic, nor M/R/G. Skin is warm to touch while under BairHugger. Gastrointestinal: Abdomen soft, non-tender, non-distended. Neurologic: Unable to participate in exam Musculoskeletal: No cyanosis or clubbing. No gross deformities. Normal range of motion. ?? Assessment/Plan Argentina Piper is a 72-year-old man with history of previous stroke with left hemiplegia, cognitiveimpairment, A-fib on Eliquis, diabetes, hypertension, BPH, COPD, coronary artery disease, hyperlipidemia, peripheral vascular disc, depression, GERD, CKD and schizophrenia who was admitted from a long-term care facility where he had an unwitnessed fall, and found to be nonverbal, admitted for workup of stroke vs seizure, as well as treatment for LLL pneumonia. Thus far, neurologic work up including CT head, CTA??neck, MRI brain and EEG shows 50 to 75% stenosis of the right vertebral artery,??left??temporal??focus??for seizure activity on??EEG and MRI showing small focus of acute infarction inthe left cerebellum without mass effect or hemorrhage, small area of chronic encephalomalacia in the anterior left temporal lobe and numerous chronic small infarcts. His mental status improved to reported baseline throughout the hospitalization, with persistent??R facial droop, dysphagia and slurred speech, and he also had a witnessed generalized seizure on 08/12. He has been started on Keppra andwas otherwise improving. In the morning of 08/15, he was found to be more obtunded, not responding to questions, hypothermic (now on BairHugger) and bradycardic, but otherwise hemodynamically stable.MICU was consulted for question of need escalation of treatment for hypothermia. At the time of consult placement, core temp was 92.0F after being on the BairHugger approx 3 hours. He is very lethargic, altered significantly than he had been in previous days, and primary team is undergoing workup for myxedema coma. Temp at the time of writing this note found to be 98.6F core. ?? Recommendations: - Can DC BairHugger for now, close monitoring of temperature - Agree with antibiotic broadening with Vanc and Zosyn - At this time, does not need ICU level of care, but may in the near future depending on lab results/inability to protect airway with lethargy ? Patient discussed with Dr. Kapadia, Attending Physician ?? Natalie Kendrick MD Med-Peds PGY-4 Pager [phone] or [employer] ? Problem List/Past Medical History Ongoing No qualifying data Medications Inpatient Acetaminophen Tablet, 650 mg, By Mouth, Every 4 hours, PRN Apixaban Tablet, 5 mg, By Mouth, 2 times a day Ativan Inj, 0.5 mg, IV Push Slowly, Once, PRN benztropine 1 mg oral tablet, 1 mg, By Mouth, 2 times a day Docusate Sodium Capsule, 100 mg= 1 capsule, By Mouth, 2 times a day, PRN finasteride 5 mg oral tablet, 5 mg, By Mouth, Daily folic acid 1 mg oral tablet, 1 mg, By Mouth, Daily Glucagon Inj, 1 mg, Intramuscular, Once, PRN haloperidol 5 mg oral tablet, 5 mg, By Mouth, 3 times a day, PRN Imdur 30 mg oral tablet, extended release, 30 mg, By Mouth, Daily Insulin LISPRO Sliding Scale, 2-10 units, Subcutaneous Injection, Every 6 hours Keppra 250 mg oral tablet, 250 mg, By Mouth, 2 times a day Keppra Inj, 500 mg, IV Push Slowly, Once Lipitor 20 mg oral tablet, 20 mg, By Mouth, Daily at bedtime Melatonin Tablet, 3 mg, By Mouth, Daily at bedtime, PRN MiraLax Powder, 17 Gm= 1 pack/packet, By Mouth, Daily, PRN olanzapine 5 mg oral tablet, 5 mg, By Mouth, Daily at bedtime risperiDONE 1 mg oral tablet, 3 mg, By Mouth, Daily at bedtime risperiDONE 1 mg oral tablet, 2 mg, By Mouth, Daily in AM Senna Tablet, 8.6 mg= 1 tablet, By Mouth, 2 times a day, PRN tamsulosin 0.4 mg oral capsule, 0.8 mg, By Mouth, Daily Vancomycin IVPB, 1250 mg, IVPB, Every 36 hours Zosyn Extended IVPB, 3.375 Gm, IVPB, Every 8 hours Home acetaminophen 325 mg oral capsule, 650 mg= 2 capsule, By Mouth, Every 8 hours, PRN amLODIPine 10 mg oral tablet, 10 mg= 1 tablet, By Mouth, Daily in AM Carafate 1 gm oral tablet, 1 Gm= 1 tablet, By Mouth, 3 times a day before meals cholecalciferol 2000 intl units oral tablet, 50 mcg= 1 tablet, By Mouth, Daily in AM Colace sodium 100 mg oral capsule, 200 mg= 2 capsule, By Mouth, Daily finasteride 5 mg oral tablet, 5 mg= 1 tablet, By Mouth, Daily in AM folic acid 1 mg oral tablet, 1 mg= 1 tablet, By Mouth, Daily in AM Gvoke HypoPen 1 mg/0.2 mL subcutaneous solution, 1 mg, Subcutaneous Injection, Once, PRN MiraLax oral powder for reconstitution, 17 Gm, By Mouth, Daily Multivitamin, 1 tablet, By Mouth, Daily in AM Senna 8.6 mg oral tablet, 17.2 mg= 2 tablet, By Mouth, Daily, PRN Allergies NKA * Kang PRADO, Chong Díaz: PERFORM Event Display: Consultation Note Authored Date: Patient seen, but he is still quite obtunded - responds with withdrawal. He has been successfully rewarmed. Agree with evaluation by Dr. Kendrick, and agree with further endocrine workup given high TSH (although borderline normal T4). 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 At present, he does notneed ICU level care, but please call us if he becomes hemodynamically or otherwise unstable. Sepsisis in the differential, and would agree with expanding Abx coverage to Vanc/Zosyn. Thank you for the consultation. * Bridget Escalera MD: PERFORM Bridget Escalera MD: PERFORM, MODIFY Bridget Escalera MD: MODIFY, MODIFY, MODIFY, MODIFY, MODIFY, MODIFY Event Display: Consult Authored Date: Patient: ??ARGENTINA PIPER ? Age:??72 Years?Sex:??Male?:??1950?? Provider Clinical Summary Referring Provider:??Dr. Meche Garcia MD Consulting Attending:??Dr. Bridget Escalera MD Sources of Information:??Patient; [facility] records ?? Reason(s) for Consultation: Agitation ?? Sensitized Paper Tester: N/A, patient is a capitan grande/fluent Micronesian speaker Chief Complaint Agitation History of Present Illness Mr. Argentina Piper is??a 72 year old man with a past medical and psychiatric history of schizophrenia, depression, COPD, GERD, HLD, HTN, Paroxysmal Afib, and CVA with residual Left hemiplegia??who came into the ED on 08/10/2023 after an unwitnessed fall at??his SNF. The patient was found with driedblood in his mouth, was nonverbal, and had GCS 10. He underwent panscan and CTA for head and neck that showed no acute traumatic injuries. Imaging also showed concern for lingular pneumonia. He gradually became verbal as he improved to GCS 14, but remained confused and hypothermic.??Lab results??showed??lactate 4.5 and??leukocytosis 17.1. He was started on broad spectrum IV??antibiotics. On 08/11, the patient was agitated and pulled out his IVs. He received IM haloperidol with little effect. Psychiatry was consulted for the behavioral concerns. ?? Today, the patient is doing well. Interview was limited due to patient's guttural and slurred speech and some loosening of associations. The patient reports he is eating and sleeping well, but does not recall why he is here, what his past diagnoses are, or what medications he takes. On orientation a ssessment, the patient is able to state his name and . He cannot state the day, date, location, or??current situation. The patient was told today's date as Thursday, August 12, and that [facility], after he had a fall at the SNF where he resides. After 5 minutes of unrelated conversation, the patient was again unable to perform any orientation questions other than his name and . ?? Psychiatric Review of Systems Depression: denies poor sleep, changes in appetite, energy, self-injurious behavior, and suicidal ideation Psychosis: denies AVH; no overtly delusional/paranoid content elicited today Anxiety: denies feeling nervous, on edge, unable to stop/control worrying, and restlessness ?? Past Psychiatric History Previous diagnoses:??Schizophrenia, Depression ?? Past hospitalizations:??unable to assess ?? Current Medications:??Benztropine 1 mg PO bid, Haloperidol 5 mg PO qam, Olanzapine 5 mg PO qhs, Risperdal 2 mg PO qam + 3 mg PO qhs ?? Medication trials:??unable to assess ?? Outpatient providers: Mark Arredondo MD (PCP) ?? Previous self-harm, suicide attempts, aggression: denies ? Substance Abuse History?? Unable to obtain substance abuse history given patient's confusion preventing effective participation in interview. ?? Social History The patient currently resides at a detention facility. Unable to obtain additional social history given patient's confusion preventing effective participation in interview. ?? Family History Unable to obtain??family history given patient's confusion preventing effective participation in interview. Review of Systems A 10 point review of systems was completed at time of initial assessment and was unremarkable except for symptoms mentioned in HPI; otherwise, all other systems are negative. Physical Exam Vitals & Measurements T:??98.6?F?? TMIN:??94.1?F?? TMAX:??98.8?F?? HR:??63??(Monitored)?? RR:??16?? BP:??134/54?? SpO2:??95%?? WT:??98.9??kg? MENTAL STATUS EXAM Appearance: dressed in hospital gown with appropriate hygiene Attitude: pleasant, calm,??cooperative Motor Activity: calm, no tremors or tics, no psychomotor agitation/retardation, in bed, good eye contact Mood: okay better [than yesterday] Affect: flat, restricted, able to smile on prompting, congruent with mood Speech: unclear, guttural, slurred, difficult to understand, normal rate and tone with some speech latency Memory: able to recall memories from distant past (eg, patient able to state his and that he grew up in [facility]), but unable to recall events leading up to hospitalizations or recall healthcare team members he saw yesterday Orientation: oriented to person Perception: denies auditory or visual hallucinations Thought process: linear, goal-oriented, somewhat disorganized, and with some loosening of associations Thought content: no delusions noted during the encounter Insight: limited Judgement: limited Self Injury: denies suicidal ideation, plan, or intent; denies self injurious behaviors Homicidality: denies homicidal ideation, plan, or intent MSK: able to move extremities against gravity; no rigidity appreciated Assessment/Plan Mr. Argentina Piper is??a 72 year old man with a past medical and psychiatric history of schizophrenia, depression, COPD, GERD, HLD, HTN, Paroxysmal Afib, and CVA with residual Left hemiplegia??who came into the ED on 08/10/2023 after an unwitnessed fall at??his SNF. The patient is currently on IV antibiotics for lingular pneumonia. Psychiatry was consulted after patient became agitated, was pulling at his IVs, and had little response to IM haloperidol. ?? On assessment, the patient is only oriented to self and appears to still have some confusion. He has some loosening of associations that make evaluation difficult, but the patient is easily redirectable and engages with yes/no questions. Patient was very calm and cooperative during assessment anddoes not seem to have had behavioral concerns overnight 08/11 or morning of 08/12 per conversation with his nurse. The patient may have been agitated due to delirium from??being in a new environment,age, ongoing infection with hypothermia, onset of antibiotics, medical and psychiatric comorbidities, or missing some antipsychotic medication doses. Per chart review, the patient's confusion seems to be improving. The patient is also on an unusual antipsychotic regimen, which may be contributing to his altered mental status. ?? Diagnoses Delirium, multifactorial etiology (new environment, age, ongoing infection with hypothermia, onset of antibiotics, medical and psychiatric comorbidities, etc.) ?? Recommendations - Stop scheduled Haloperidol 5 mg PO qam. - Offer Haloperidol 5 mg PO/IM/IV ??tid PRN for agitation. - Agree with restarting home meds: Benztropine 1 mg PO bid,??Olanzapine 5 mg PO qhs, and??Risperidone 2 mg PO qam + 3 mg PO qhs - Suggest starting??delirium precautions including, but not limited to, timely re-orientation, early mobilization, medication reconciliation, preservation of sleep-wake cycle, adequate hydration, minimizing night time noise, increasing light exposure during the day, and minimizing use of physical restraints. ?? [place] [phone] if any questions or concerns arise. ?? Note written in part by Farhana Rodriguez, MS4. Problem List/Past Medical History Ongoing No qualifying data Medications Inpatient Acetaminophen Tablet, 650 mg, By Mouth, Every 4 hours, PRN Apixaban Tablet, 5 mg, By Mouth, 2 times a day Azithromycin IVPB, 500 mg, IVPB, Every 24 hours benztropine 1 mg oral tablet, 1 mg, By Mouth, 2 times a day Ceftriaxone Inj, 1 Gm, IVPB, Every 24 hours Dextrose 50% Inj Syringe (25Gm), 12.5 Gm, IV Push Slowly, Every 20 minutes, PRN Dextrose 50% Inj Syringe (25Gm), 25 Gm, IV Push Slowly, Every 15 minutes, PRN Docusate Sodium Capsule, 100 mg= 1 capsule, By Mouth, 2 times a day, PRN finasteride 5 mg oral tablet, 5 mg, By Mouth, Daily folic acid 1 mg oral tablet, 1 mg, By Mouth, Daily Glucagon Inj, 1 mg, Intramuscular, Once, PRN Glucose Gel, 15 Gm, By Mouth, Every 20 minutes, PRN Glucose Gel, 30 Gm, By Mouth, Every 20 minutes, PRN haloperidol 5 mg oral tablet, 5 mg, By Mouth, Daily in AM Imdur 30 mg oral tablet, extended release, 30 mg, By Mouth, Daily Insulin LISPRO Sliding Scale, 2-10 units, Subcutaneous Injection, 3 times a day before meals Insulin NPH Human Inj, 10 units= 0.1 mL, Subcutaneous Injection, 2 times a day Lipitor 20 mg oral tablet, 20 mg, By Mouth, Daily at bedtime Melatonin Tablet, 3 mg, By Mouth, Daily at bedtime, PRN MiraLax Powder, 17 Gm= 1 pack/packet, By Mouth, Daily, PRN NaCL 0.9% Flush, 3 mL, IV Push, Every 8 hours NaCL 0.9% Flush, 3 mL, IV Push, Every 8 hours, PRN olanzapine 5 mg oral tablet, 5 mg, By Mouth, Daily at bedtime risperiDONE 1 mg oral tablet, 3 mg, By Mouth, Daily at bedtime risperiDONE 1 mg oral tablet, 2 mg, By Mouth, Daily in AM Senna Tablet, 8.6 mg= 1 tablet, By Mouth, 2 times a day, PRN tamsulosin 0.4 mg oral capsule, 0.8 mg, By Mouth, Daily Home acetaminophen 325 mg oral capsule, 650 mg= 2 capsule, By Mouth, Every 8 hours, PRN acetaminophen 650 mg rectal suppository, 650 mg= 1 supp, Rectally, Every 8 hours, PRN amLODIPine 10 mg oral tablet, 10 mg= 1 tablet, By Mouth, Daily in AM Carafate 1 gm oral tablet, 1 Gm= 1 tablet, By Mouth, 3 times a day before meals cholecalciferol 2000 intl units oral tablet, 50 mcg= 1 tablet, By Mouth, Daily in AM Colace sodium 100 mg oral capsule, 200 mg= 2 capsule, By Mouth, Daily finasteride 5 mg oral tablet, 5 mg= 1 tablet, By Mouth, Daily in AM folic acid 1 mg oral tablet, 1 mg= 1 tablet, By Mouth, Daily in AM Gvoke HypoPen 1 mg/0.2 mL subcutaneous solution, 1 mg, Subcutaneous Injection, Once, PRN Insta-Glucose 24 g/31 g oral gel, See Instructions MiraLax oral powder for reconstitution, 17 Gm, By Mouth, Daily Multivitamin, 1 tablet, By Mouth, Daily in AM Senna 8.6 mg oral tablet, 17.2 mg= 2 tablet, By Mouth, Daily, PRN Allergies NKA History and physical note * Eduardo Jones MD: PERFORM Event Display: History and Physical Hospital Authored Date: Patient: ??ARGENTNIA PIPER ? Age:??72 Years?Sex:??Male?:??1950?? Chief Complaint/Reason for Consultation Found down at??long-term care facility History of Present Illness 72-year-old male??presented from his long-term care facility after being found down.?? He apparently had an unwitnessed fall versus syncopal event versus seizure.?? According to the transfer notes??his blood pressure was 132/64 with a heart rate of 98??O2 sat of 94 on room air [facility]?? When he arrived in the ER he was nonverbal. ??He apparently is verbal at baseline.?? Hewas noted to have an elevated lactate of 4.5??and leukocytosis 17.1.?? There was concern for sepsis??and he was started on broad-spectrum antibiotics.?? He was evaluated by the trauma service. ??Imaging revealed a possible??lingular pneumonia.?He subsequently improved and became more alert and was speaking.?During my evaluation??he is alert and follows simple commands but remains confused.?? No further history is available.?? He did receive treatment for hyperkalemia in the ER with a doseof Lokelma??and??2 L of fluid.?? He was also noted to be hypothermic??and was started on a bear hugger but subsequently??improved and this was stopped.?? I spoke to the patient's healthcare??proxy, his daughter, over the phone and updated her regarding??clinical situation and she confirmed the patient to be full code.?? He reportedly has a history of a previous CVA with left hemiplegia??at baseline. ? EKG: Sinus rhythm 70 bpm First-degree 236 ?? RESULT: CT Chest W/ Contrast CT Chest W/ Contrast, CT Abd/Pelvis W/ IV Contrast Only?? FINDINGS:?? IMPRESSION: Lingular and left lower lobe area of atelectasis, pulmonary contusion, or pneumonia. 1.2 cm enhancing exophytic lesion within the midpole of the right kidney concerning for neoplastic process. Recommend MRI with gadolinium for better evaluation. Likely cystitis. Moderate amount of stool throughout the colon. Mild diverticulosis of the sigmoid colon. Review of Systems Patient unable to answer due to confusion Objective ? Vital Signs?? Temperature: 96.8 DegF (08/10/23 22:56:00) Temperature Route: Oral (08/10/23 22:56:00) Normothermic Measures: Tasha hugger (08/10/23 16:44:00) Pulse Rate: 78 bpm (08/11/23 02:57:00) Respiratory Rate: 20 br/min (08/11/23 02:57:00) Systolic Blood Pressure:??158 mm Hg??High (08/11/23 02:57:00) Diastolic Blood Pressure: 74 mm Hg (08/11/23 02:57:00) Blood pressure sites: Arm, right (08/11/23 02:57:00) Mean Arterial Pressure: 82 mm Hg (08/10/23 17:52:00) Pulse Pressure: 70 mm Hg (08/10/23 17:52:00) Oxygen Saturation: 100 % (08/11/23 02:57:00) Liters per Minute: 2 L/min (08/11/23 02:57:00) Mode of Delivery (Oxygen): Nasal cannula (08/11/23 02:57:00) Early Warning Score: 8 (08/11/23 02:58:24) ? Physical Exam Constitutional: Alert follows commands Mental Status: Not oriented to person, place and time. Head: Normocephalic. Eyes: Pupils are equal, round and reactive to light. Extraocular muscles intact. Ear, Nose and Throat: Oropharynx clear, mucous membranes moist Neck: Supple, Full range of motion. Respiratory: Scattered rhonchi Cardiovascular: S1 S2 regular. No murmurs, rubs or gallops. Gastrointestinal: Abdomen soft, non-tender, +distended. Normal bowel sounds. Neurologic: Cranial nerves II-XII grossly intact. ??Power 5/5??left upper extremity,??5/5 right upper extremity,??4/5??right lower extremity,??4/5 left lower extremity Skin: No rashes or lesions. No petechiae or purpura.?? Musculoskeletal: No cyanosis or clubbing. No gross deformities. Normal range of motion. Psychiatric: Patient confused Assessment/Plan Syncope (R55):??. Altered mental status (R41.82):??. Unwitnessed fall (R29.6):??. Unwitnessed fall. ??Check CK level Confused but improving Evaluated by trauma on arrival Unclear etiology Altered mental status likely secondary to sepsis??versus postictal Possible syncope versus seizure??versus arrhythmia Less likely CVA Check orthostatics Monitor on telemetry Seizure precautions Neurology eval in a.m. PT eval ? Sepsis (A41.9):??. Pneumonia (J18.9):??. Hypothermia (T68.XXXA):??. Initial presentation concerning for sepsis with hypothermia,??leukocytosis,??elevated lactate and altered mental status CT??reveals possible lingular??pneumonia Blood cultures sent from the ER Repeat lactate normal. ??Temperature now normal Continue??ceftriaxone, azithromycin ? Diabetes (E11.9):??. Continue NPH Sliding scale Hypoglycemic measures as needed ? Hypertension (I10):??. Continue Norvasc in a.m. ? CKD (chronic kidney disease) (N18.9):??. Hyperkalemia Received Lokelma in the ER??repeat potassium normal Low potassium diet Creatinine near baseline???2.8 Monitor renal function ? Schizophrenia (F20.9):??. Continue home meds including benztropine,??Haldol, risperidone, olanzapine ? Paroxysmal atrial fibrillation (I48.0):??. Patient on Eliquis??for anticoagulation ? VTE Prophylaxis:??. Continue Eliquis? Code Status:??. Full code Confirmed with patient's healthcare proxy, daughter, over the phone? Patient seen 08/10/2023 ? Histories Allergies Allergies ?(Active and Proposed Allergies Only) NKA? (Severity: Unknown severity, Onset: Unknown) ? Past Medical History/Problem List Diverticulosis CVA with residual left hemiplegia Cognitive impairment Atrial fibrillation Diabetes Hypertension BPH Schizophrenia COPD Anemia Diastolic dysfunction CAD Hyperlipidemia Peripheral vascular disease Depression GERD CKD ? Social History Lives in long-term care facility Non-smoker No alcohol ? Family History Patient unable to answer due to confusion ? Medications Home Medications Eliquis 5 twice daily Norvasc 10 mg daily Lipitor 20 mg daily Benztropine 1 mg twice daily Vitamin D Finasteride 5 mg daily Folic acid 1 mg daily Haldol 5 mg daily Haldol IM??q. 28 days Risperidone??2 mg a.m./3 mg at bedtime Olanzapine 5 mg at bedtime Pantoprazole 40 mg daily Imdur 30 mg daily Multivitamin NPH??10 units twice daily ?? Results Recent Labs BLOOD BANK Blood Type O Positive ()?? 08/10/2023 13:40 Antibody Screen Negative ()?? 08/10/2023 13:40 ?? BLOOD COUNT & DIFF WBC 17.1 k/mm3 (High)?? 08/10/2023 13:24 RBC 2.99 m/mm3 (Low)?? 08/10/2023 13:24 Hgb 8.5 Gm/dL (Low)?? 08/10/2023 13:24 Hct 26.6 % (Low)?? 08/10/2023 13:24 MCV 89.0 femtoliters ()?? 08/10/2023 13:24 MCH 28.4 pg ()?? 08/10/2023 13:24 MCHC 32.0 g/dL (Low)?? 08/10/2023 13:24 Platelet Count 139 k/mm3 (Low)?? 08/10/2023 13:24 RDW-SD 57.3 femtoliters (High)?? 08/10/2023 13:24 MPV 10.8 femtoliters ()?? 08/10/2023 13:24 Nucleated RBC (Automated) 0.1 #/100 WBC'S ()?? 08/10/2023 13:24 Abs. NRBC 0.0 k/mm3 ()?? 08/10/2023 13:24 Abs. Neut 14.1 k/mm3 (High)?? 08/10/2023 13:24 Abs. Lymph 1.8 k/mm3 ()?? 08/10/2023 13:24 Abs. [place] 0.9 k/mm3 ()?? 08/10/2023 13:24 Abs. Eo 0.1 k/mm3 ()?? 08/10/2023 13:24 Abs. Baso 0.0 k/mm3 ()?? 08/10/2023 13:24 Neut % 82.9 % (High)?? 08/10/2023 13:24 Lymph % 10.3 % (Low)?? 08/10/2023 13:24 [place] % 5.3 % ()?? 08/10/2023 13:24 Eos % 0.6 % ()?? 08/10/2023 13:24 Baso % 0.2 % ()?? 08/10/2023 13:24 Imm Gran 0.7 % ()?? 08/10/2023 13:24 Abs. Imm Gran 0.1 k/mm3 ()?? 08/10/2023 13:24 ?? CARDIAC High Sensitivity Troponin (HSTnT) 40 ng/L (High)?? 08/11/2023 00:07 ?? CHEM GENERAL Sodium 139 mmol/L ()?? 08/11/2023 00:07 Potassium 5.0 mmol/L ()?? 08/11/2023 00:07 Chloride 105 mmol/L ()?? 08/11/2023 00:07 Bicarbonate Level 24 mmol/L ()?? 08/11/2023 00:07 Anion Gap 10 ()?? 08/11/2023 00:07 Glucose Level 92 mg/dL ()?? 08/11/2023 00:07 BUN 67 mg/dL (High)?? 08/10/2023 13:24 Creatinine-Blood 2.5 mg/dL (High)?? 08/10/2023 13:24 Estimated GFR Creatinine 20 ML/MIN/1.73 M2 ()?? 08/10/2023 13:24 Calcium 9.8 mg/dL ()?? 08/10/2023 13:24 Protein, Total 7.3 Gm/dL ()?? 08/10/2023 16:03 Albumin 3.8 Gm/dL ()?? 08/10/2023 16:03 Alkaline Phosphatase 240 units/L (High)?? 08/10/2023 16:03 Amylase 275 units/L (High)?? 08/10/2023 13:24 Lipase 51 units/L ()?? 08/11/2023 00:07 AST (SGOT) 21 units/L ()?? 08/10/2023 16:03 ALT (SGPT) 18 units/L ()?? 08/10/2023 16:03 Bilirubin, Total 0.2 mg/dL ()?? 08/10/2023 16:03 Bilirubin, Direct <0.2 mg/dL ()?? 08/10/2023 16:03 Bilirubin, Indirect Direct bilirubin is less than the measureable limit. Therefore, indirect mg/dL ()?? 08/10/2023 16:03 Lactate 1.2 mmol/L ()?? 08/10/2023 16:03 ?? MISC. CHEMISTRY Ammonia, Venous 20 ??mole/L ()?? 08/11/2023 00:07 Hold Red Top SPECIMEN DISCARDED AFTER 1 WEEK ()?? 08/10/2023 13:24 ?? TOXICOLOGY/TDM Ethanol, Serum or Plasma NONE DETECTED mg/dL ()?? 08/10/2023 13:24 Barbiturate Screen, Urine NONE DETECTED ()?? 08/10/2023 17:00 Cannabinoid Screen, Urine NONE DETECTED ()?? 08/10/2023 17:00 Cocaine Metabolite Screen, Urine NONE DETECTED ()?? 08/10/2023 17:00 Benzodiazepine Screen, Urine NONE DETECTED ()?? 08/10/2023 17:00 Amphetamine Screen, Urine NONE DETECTED ()?? 08/10/2023 17:00 Opiate Screen, Urine NONE DETECTED ()?? 08/10/2023 17:00 ?? UA/URINALYSIS Appear/Color, Urine COLORLESS ()?? 08/10/2023 17:00 Specific [place], Urine 1.016 ()?? 08/10/2023 17:00 pH, Urine 6.5 ()?? 08/10/2023 17:00 Albumin, Urine 2+ (Abnormal)?? 08/10/2023 17:00 Glucose, Urine NEGATIVE ()?? 08/10/2023 17:00 Ketones, Urine NEGATIVE ()?? 08/10/2023 17:00 Bilirubin, Urine NEGATIVE ()?? 08/10/2023 17:00 Hemoglobin, Urine 1+ (Abnormal)?? 08/10/2023 17:00 Nitrite, Urine NEGATIVE ()?? 08/10/2023 17:00 Leukocyte, Urine NEGATIVE ()?? 08/10/2023 17:00 Urobilinogen NORMAL mg/dL ()?? 08/10/2023 17:00 WBC's, Urine 3 /HPF ()?? 08/10/2023 17:00 RBC's, Urine <1 /HPF ()?? 08/10/2023 17:00 Hold Urine Culture Testing available 48 hours from time of collection. ()?? 08/10/2023 17:00 ?? VIROLOGY Influenza A PCR NEGATIVE ()?? 08/10/2023 13:31 Influenza B PCR NEGATIVE ()?? 08/10/2023 13:31 RSV PCR NEGATIVE ()?? 08/10/2023 13:31 COVID-19 PCR Specimen Source NASAL ()?? 08/10/2023 13:31 COVID-19 PCR Result NEGATIVE ()?? 08/10/2023 13:31 ? Admission evaluation note * Natalie Poole MD: PERFORM, MODIFY, MODIFY, MODIFY, MODIFY, MODIFY, SIGN, VERIFY Event Display: Admission Note Authored Date: Patient: ARGENTINA PIPER Age: 72 years Sex: Male : 1950 Associated Diagnoses: None Author: Natalie Poole MD Trauma Activation Category: Category 2. Trauma History 72yoM cat2 trauma s/p found on ground at [facility], last known well 7am. ?LOC, -EtOH, +AC(eliquis) GCS 10. Per EMS, the patient was found on the ground after unwitnessed fall by staff at [facility]. They noted dried blood around his mouth. He has been non verbal since but is normally verbal. No signs of trauma or injuries, moving all extremities. Vitals 134/56, HR 88, SpO2 90-95% RA, POC glucose 192 Upon arrival, primary survey was completed and is as follows: airway patent, breath sounds present equal bilaterally, BP 136/66, pupils pinpoint, GCS 10 (E4 V1 M6). Secondary survey was completed andis documented below. Speer collar was placed for c-spine precaution. Following CXR, the patient wastaken to CT for further workup. Past Medical History Afib on eliquis, CHF, CAD, Dementia, CVA, HTN, schizophrenia, CKD stage 3, T2DM Past Surgical History unknown Medications Eliquis Allergies NKA Family History non-contributory Social History non-contributory Review of Systems A 14-point review of systems was negative except as documented above Physical Examination Vital Signs: T 93.3 rectal, BP 136/66, HR 89, RR 20, SpO2 96% on 2L General: no acute distress, alert, awake Head: normocephalic, atraumatic, no hematomas, no abrasions, no wounds, no deformities Face: no ecchymosis, no abrasions, no wounds to face. Puncture laceration to tip of tongue Eyes: pupils are pinpoint; extraocular movement intact Ears: no hemotympanum, no blood in external auditory canal, no abrasions, no bueno's sign Nose: no epistaxis, no deformity Mandible: no deformity, no malocclusion Neck: cervical-collar in place, no hematoma, no ecchymosis, no wounds, trachea midline Chest: symmetric, no deformity, sternum, chest wall, and clavicles are nontender to palpation, no crepitus appreciated Heart: regular rate and rhythm Lungs: clear to auscultation bilaterally Abdomen: soft, mild distension, nontender, no wounds, no ecchymosis, no hematoma Pelvis: stable, nontender Back: no ecchymosis, no abrasions, no hematoma, no wounds Cervical spine: no midline deformities or stepoffs, no tenderness, cervical- collar in place Thoracic spine: no midline deformities or stepoffs, no tenderness Lumbar spine: no midline deformities or stepoffs, no tenderness Extremities: no long bone deformities, no ecchymosis, no hematomas, full active range of motion, abrasion to right knee, healing pressure sore to right lateral thigh Neurologic: GCS10; 4/5 strength in lower extremities and 5/5 strength in uppers. Unable to assess sensation to light touch in the bilateral upper and lower extremities as patient is not answering Vascular: palpable dorsalis pedis and radial pulses bilaterally Results Review 7 day results Labs & Documents Laboratory : LABORATORY 08/10/2023 13:31 EST Influenza A PCR NEGATIVE Influenza B PCR NEGATIVE RSV PCR NEGATIVE COVID-19 PCR Specimen Source NASAL COVID-19 PCR Result NEGATIVE 08/10/2023 13:24 EST WBC 17.1 k/mm3 H RBC 2.99 m/mm3 L Hgb 8.5 Gm/dL L Hct 26.6 % L MCV 89.0 femtoliters MCH 28.4 pg MCHC 32.0 g/dL L Platelet Count 139 k/mm3 L RDW-SD 57.3 femtoliters H MPV 10.8 femtoliters Nucleated RBC (Automated) 0.1 #/100 WBC'S Abs. NRBC 0.0 k/mm3 Abs. Neut 14.1 k/mm3 H Abs. Lymph 1.8 k/mm3 Abs. [place] 0.9 k/mm3 Abs. Eo 0.1 k/mm3 Abs. Baso 0.0 k/mm3 Neut % 82.9 % H Lymph % 10.3 % L [place] % 5.3 % Eos % 0.6 % Baso % 0.2 % Imm Gran 0.7 % Abs. Imm Gran 0.1 k/mm3 Sodium 137 mmol/L Potassium HEMOLYZED mmol/L Chloride 100 mmol/L Bicarbonate Level 20 mmol/L L Anion Gap 17 Glucose Level 166 mg/dL H BUN 67 mg/dL H Creatinine-Blood 2.5 mg/dL H Estimated GFR Creatinine 20 ML/MIN/1.73 M2 Calcium 9.8 mg/dL Amylase 275 units/L H Lactate 4.5 mmol/L H Ethanol, Serum or Plasma NONE DETECTED mg/dL Hold Red Top SPECIMEN DISCARDED AFTER 1 WEEK Imaging : RADIOLOGY 08/10/2023 13:[address] Chest W/ Contrast CT Chest W/ Contrast CT Cervical Spine W/O Contrast CT Cervical Spine W/O Contrast CT Head-Hyper Acute Stroke CT Head-Hyper Acute Stroke CT Abd/Pelvis W/ IV Contrast Only RESULT: CT Abd/Pelvis W/ IV Contrast Only CT Angio Neck Hyperacute Stroke RESULT: CT Angio Neck Hyperacute Stroke CT Angio Head Hyperacute Stroke CT Angio Head Hyperacute Stroke 08/10/2023 13:45 EST Chest Portable Chest Portable Pelvis 1 or 2 Views Pelvis [address] Chest W/ Contrast Event Date: 08/10/2023 13:59:20 EST Updated: 08/10/2023 14:[address] Chest W/ Contrast This document has an image Reason For Exam Chest trauma, blunt;Other: RESULT: CT Chest W/ Contrast CT Chest W/ Contrast, CT Abd/Pelvis W/ IV Contrast Only INDICATION: Reason: Other:; Chest trauma, blunt; Clinical Question(s): Other:; Aortic hilar injury TECHNIQUE: Helical CT scan of the chest, abdomen, and pelvis with IV contrast, formatted in 3 planes. 100 cc of Omnipaque 300 was administered intravenously. This study was performed without oral contrast. Weight-based protocol was performed using automatic exposure control. COMPARISON: None. FINDINGS: Budget Technician view findings, lines and tubes: None. Trachea and airways: Patent without evidence of tracheal or endobronchial lesion. Lungs and pleura: Area of opacity within the lingula and superior segment of the left lower lobe. Bibasilar atelectasis. No effusion or pneumothorax. Mediastinum and kwauk: No mass or hematoma. No mediastinal or hilar lymphadenopathy. No esophageal abnormality. Small hiatal hernia. Heart: Heart is enlarged. No pericardial effusion. Aorta: No aortic aneurysm. Pulmonary arteries: Normal caliber. No evidence of pulmonary embolism on this study performed without angiographic technique. Chest wall soft tissues: No acute abnormality. Diaphragm: Intact. Liver: Normal in attenuation and morphology. No suspicious lesion. Gallbladder: No CT evidence of gallbladder pathology. Bile ducts: No biliary ductal dilation. Spleen: Normal in size. Pancreas: No suspicious lesion or ductal dilatation. Adrenal glands: No nodule. Kidneys and ureters: No hydronephrosis or hydroureter. There is a 3 mm stone in the midpole of the right kidney. There is a 1.2 cm exophytic lesion in the midpole of the right kidney. There is a cystwithin the lower pole of the right kidney. Bladder: There is bladder wall thickening with adjacent stranding. Reproductive organs: Unremarkable. Stomach, small bowel, and large bowel: There are a few scattered diverticula within the sigmoid colon. There is mild fecal impaction within the rectosigmoid colon. Moderate amount of stool throughoutthe colon. Appendix: No evidence of acute appendicitis. Peritoneum and retroperitoneum: No ascites or pneumoperitoneum. No omental or mesenteric lesions. Lymph nodes: No enlarged lymph nodes. Blood vessels: No vascular calcifications or aneurysm. No evidence of venous thrombosis. Abdominal and pelvic wall soft tissues: No acute abnormality. Bones: No acute abnormality. IMPRESSION: Lingular and left lower lobe area of atelectasis, pulmonary contusion, or pneumonia. 1.2 cm enhancing exophytic lesion within the midpole of the right kidney concerning for neoplastic process. Recommend MRI with gadolinium for better evaluation. Likely cystitis. Moderate amount of stool throughout the colon. Mild diverticulosis of the sigmoid colon. An actionable message ([place]) has been communicated via the [place] system on 08/10/2023 2:28 PM, Message ID [id number]. WSN: [id number] Ordering Physician: Natalie Poole Signature Line Dictated By: Ayan Khanna MD Dictated Date/Time: 08/10/23 2:28 pm Reviewed By: Ayan Khanna MD Signed By: Ayan Khanna MD Signed Date/Time: 08/10/23 2:28 pm Transcribed By: CHERELLE Transcribed Date/Time: 08/10/23 2:[address] Chest W/ Contrast CT Cervical Spine W/O Contrast Event Date: 08/10/2023 13:59:20 EST Updated: 08/10/2023 19:[address] Cervical Spine W/O Contrast This document has an image Reason For Exam Neck trauma, dangerous injury mechanism;Other: RESULT: CT Cervical Spine W/O Contrast CT Cervical Spine W/O Contrast Reason: 72-year-old male status post unwitnessed fall, Neck trauma. Clinical Question(s): Fracture Dislocation TECHNIQUE: Spiral CT of the cervical spine without contrast, formatted in 3 planes. Weight-based protocol using automatic tube modulation was used to optimize exposure parameters. RADIATION DOSE PARAMETERS: CTDIvol Body: 18.30 mGy, DLP Body: 469 mGy*cm. COMPARISON: None. FINDINGS: Spine: No acute fracture or dislocation. The alignment is maintained. Mild decreased C6-7 disc height and multilevel endplate spurring. Mild degenerative endplate changes at all levels without loss of theseheight. Anterior and posterior annular calcifications noted throughout the cervical spine. No locked or perched facet. Ligamentum flavum calcifications noted at several levels in the upper cervical spine. Disc/ossify complexes and facet hypertrophy as well as uncovertebral hypertrophy cause moderate bilateral neural foraminal narrowing at C6-C7. Soft tissues and lung apices: Minimal dependent atelectasis. Mild paraseptal emphysema RIGHT upper lobe. Moderate arterial calcifications including the carotid arteries.. IMPRESSION: No evidence of acute bony injuries. Significant degenerative changes with neural foraminal narrowing as described. Moderate arterial calcifications. RIGHT upper lobe paraseptal emphysema. I have personally reviewed the images and I agree with this report. WSN: [id number] Ordering Physician: Natalie Poole Signature Line Dictated By: Caty Prado MD Dictated Date/Time: 08/10/23 7:43 pm Reviewed By: Bernardino May MD Signed By: Bernardino May MD Signed Date/Time: 08/10/23 7:48 pm Transcribed By: CHERELLE Transcribed Date/Time: 08/10/23 7:[address] Cervical Spine W/O Contrast CT Head-Hyper Acute Stroke Event Date: 08/10/2023 13:59:20 EST Updated: 08/10/2023 14:[address] Head-Hyper Acute Stroke This document has an image Reason For Exam Head trauma, mod-severe;Other: RESULT: CT Head-Hyper Acute Stroke CT Head-Hyper Acute Stroke INDICATION: Reason: Other:; Head trauma, mod-severe; Clinical Question(s): Hematoma TECHNIQUE: Noncontrast head CT using axial technique and reconstructed in axial and coronal planes.Iterative reconstruction techniques are used to optimize dose and image quality. CTDIvol Body: 13.85 mGy, DLP Body: 1719 mGy*cm. CTDIvol Head: 47.40 mGy, DLP Head: 773 mGy*cm. COMPARISON: None. FINDINGS: Budget Technician view findings, lines and tubes: None. BRAIN AND EXTRA-AXIAL SPACES: No parenchymal hemorrhage, midline shift, or mass effect. Zapata-white matter differentiation is wellpreserved. No acute infarct. Mild prominence of the ventricles and sulci consistent with parenchymal volume loss. Moderate low-density white matter changes. No subarachnoid hemorrhage. No subdural or epidural collection. CALVARIUM, SKULL BASE, AND SOFT TISSUES: No fractures or suspicious bony lesions. The paranasal sinuses and mastoid air cells are clear. Visualized orbits and globes are intact. The extracranial soft tissues are unremarkable. IMPRESSION: No acute intracranial pathology. WSN: [id number] Ordering Physician: Natalie Poole Signature Line Dictated By: Leonel King MD Dictated Date/Time: 08/10/23 2:09 pm Reviewed By: Leonel King MD Signed By: Leonel King MD Signed Date/Time: 08/10/23 2:09 pm Transcribed By: CHERELLE Transcribed Date/Time: 08/10/23 2:[address] Head-Hyper Acute Stroke CT Abd/Pelvis W/ IV Contrast Only Event Date: 08/10/2023 13:59:20 EST Updated: 08/10/2023 14:[address] Abd/Pelvis W/ IV Contrast Only This document has an image Reason For Exam Abd trauma, blunt;Other: RESULT: CT Abd/Pelvis W/ IV Contrast Only CT Chest W/ Contrast, CT Abd/Pelvis W/ IV Contrast Only INDICATION: Reason: Other:; Chest trauma, blunt; Clinical Question(s): Other:; Aortic hilar injury TECHNIQUE: Helical CT scan of the chest, abdomen, and pelvis with IV contrast, formatted in 3 planes. 100 cc of Omnipaque 300 was administered intravenously. This study was performed without oral contrast. Weight-based protocol was performed using automatic exposure control. COMPARISON: None. FINDINGS: Budget Technician view findings, lines and tubes: None. Trachea and airways: Patent without evidence of tracheal or endobronchial lesion. Lungs and pleura: Area of opacity within the lingula and superior segment of the left lower lobe. Bibasilar atelectasis. No effusion or pneumothorax. Mediastinum and kwaku: No mass or hematoma. No mediastinal or hilar lymphadenopathy. No esophageal abnormality. Small hiatal hernia. Heart: Heart is enlarged. No pericardial effusion. Aorta: No aortic aneurysm. Pulmonary arteries: Normal caliber. No evidence of pulmonary embolism on this study performed without angiographic technique. Chest wall soft tissues: No acute abnormality. Diaphragm: Intact. Liver: Normal in attenuation and morphology. No suspicious lesion. Gallbladder: No CT evidence of gallbladder pathology. Bile ducts: No biliary ductal dilation. Spleen: Normal in size. Pancreas: No suspicious lesion or ductal dilatation. Adrenal glands: No nodule. Kidneys and ureters: No hydronephrosis or hydroureter. There is a 3 mm stone in the midpole of the right kidney. There is a 1.2 cm exophytic lesion in the midpole of the right kidney. There is a cystwithin the lower pole of the right kidney. Bladder: There is bladder wall thickening with adjacent stranding. Reproductive organs: Unremarkable. Stomach, small bowel, and large bowel: There are a few scattered diverticula within the sigmoid colon. There is mild fecal impaction within the rectosigmoid colon. Moderate amount of stool throughoutthe colon. Appendix: No evidence of acute appendicitis. Peritoneum and retroperitoneum: No ascites or pneumoperitoneum. No omental or mesenteric lesions. Lymph nodes: No enlarged lymph nodes. Blood vessels: No vascular calcifications or aneurysm. No evidence of venous thrombosis. Abdominal and pelvic wall soft tissues: No acute abnormality. Bones: No acute abnormality. IMPRESSION: Lingular and left lower lobe area of atelectasis, pulmonary contusion, or pneumonia. 1.2 cm enhancing exophytic lesion within the midpole of the right kidney concerning for neoplastic process. Recommend MRI with gadolinium for better evaluation. Likely cystitis. Moderate amount of stool throughout the colon. Mild diverticulosis of the sigmoid colon. An actionable message ([place]) has been communicated via the [place] system on 08/10/2023 2:28 PM, Message ID [id number]. WSN: [id number] Ordering Physician: Natalie Poole Signature Line Dictated By: Ayan Khanna MD Dictated Date/Time: 08/10/23 2:28 pm Reviewed By: Ayan Khanna MD Signed By: Ayan Khanna MD Signed Date/Time: 08/10/23 2:28 pm Transcribed By: CHERELLE Transcribed Date/Time: 08/10/23 2:[address] Angio Neck Hyperacute Stroke Event Date: 08/10/2023 13:59:20 EST Updated: 08/10/2023 14:[address] Angio Neck Hyperacute Stroke This document has an image Reason For Exam Aneurysm, neck vessel(s);Other: RESULT: CT Angio Neck Hyperacute Stroke CT Angio Head Hyperacute Stroke, CT Angio Neck Hyperacute Stroke Reason: Other:; Stroke; found unable to talk Clinical Question(s): Other:; Hematoma Aneurysm / Other: TECHNIQUE: CT angiogram of the head and neck was performed after bolus administration of intravenous contrast. 100 mL of Omnipaque 300 was administered intravenously. Coronal and sagittal MIP reformatted images were obtained. Additional 3-D images were created on a separate workstation under concurrent supervision by the attending radiologist. All stenoses are measured using NASCET criteria. Weight-based protocol using automatic tube modulation was used to optimize exposure parameters. RADIATION DOSE PARAMETERS: CTDIvol Body: 13.85 mGy, DLP Body: 1719 mGy*cm. CTDIvol Head: 47.40 mGy, DLP Head: 773 mGy*cm. COMPARISON: Noncontrast CT head performed concurrently. FINDINGS: CTA OF THE NECK: Arch: There is a three vessel aortic arch. The origins of the supra aortic vessels are patent. Right carotid system: Visualization is mildly limited by suboptimal opacification. There is calcified plaque present at the bifurcation. There is no evidence of significant stenosis or dissection. Left carotid system: Visualization is mildly limited by suboptimal opacification. Calcified plaque is present at the bifurcation without significant stenosis. There is no evidence of dissection. There is a co-dominant vertebral artery system. Right vertebral: Calcified plaque at the origin produces a 50-75% stenosis. A small amount of calcified plaque is present at the C5 level without definite stenosis. Additional calcified plaque is present at the C3 level. No focal stenosis or dissection is noted and the vessel extends intracranially. Left vertebral: Visualization is mildly limited by streak artifact. The origin is not well seen. Minor calcified plaque is present in the P1 segment without stenosis. The remainder of the vessel is normal. Other: Soft tissues and bones: No evidence of lymphadenopathy or mass. CTA OF THE HEAD: Anterior circulation: There is extensive calcification of the intracranial internal carotid arteries with stenosis of approximately 50% to present bilaterally. The anterior and middle cerebral arteries are normal. Posterior circulation: The intracranial vertebral arteries are normal. A small amount of calcified plaque is present in the mid basilar artery without stenosis. The superior cerebellar arteries are normal. There is mild narrowing of the P2 segment of the right posterior cerebral artery. The left posterior cerebral arises predominantly through the posterior communicating artery. Veins: Major dural venous sinuses are patent. Other: Soft tissues and bones: No midline shift or effacement of the basal cisterns. No space-occupying hemorrhage. No territorial loss of zapata-white matter differentiation. IMPRESSION: 1. Mildly limited examination due to suboptimal opacification. 2. No evidence of stenosis or vessel injury involving the anterior circulation. 3. 50-75% stenosis at the origin of the right vertebral artery. No focal stenosis or dissection is demonstrated elsewhere in either vertebral artery. 4. No significant intracranial abnormality is demonstrated. WSN: [id number] Ordering Physician: Natalie Poole Signature Line Dictated By: Payam Alvarenga MD Dictated Date/Time: 08/10/23 2:16 pm Reviewed By: Payam Alvarenga MD Signed By: Payam Alvarenga MD Signed Date/Time: 08/10/23 2:16 pm Transcribed By: CHERELLE Transcribed Date/Time: 08/10/23 2:[address] Angio Head Hyperacute Stroke Event Date: 08/10/2023 13:59:20 EST Updated: 08/10/2023 14:[address] Angio Head Hyperacute Stroke This document has an image Reason For Exam Stroke;Other: RESULT: CT Angio Head Hyperacute Stroke CT Angio Head Hyperacute Stroke, CT Angio Neck Hyperacute Stroke Reason: Other:; Stroke; found unable to talk Clinical Question(s): Other:; Hematoma Aneurysm / Other: TECHNIQUE: CT angiogram of the head and neck was performed after bolus administration of intravenous contrast. 100 mL of Omnipaque 300 was administered intravenously. Coronal and sagittal MIP reformatted images were obtained. Additional 3-D images were created on a separate workstation under concurrent supervision by the attending radiologist. All stenoses are measured using NASCET criteria. Weight-based protocol using automatic tube modulation was used to optimize exposure parameters. RADIATION DOSE PARAMETERS: CTDIvol Body: 13.85 mGy, DLP Body: 1719 mGy*cm. CTDIvol Head: 47.40 mGy, DLP Head: 773 mGy*cm. COMPARISON: Noncontrast CT head performed concurrently. FINDINGS: CTA OF THE NECK: Arch: There is a three vessel aortic arch. The origins of the supra aortic vessels are patent. Right carotid system: Visualization is mildly limited by suboptimal opacification. There is calcified plaque present at the bifurcation. There is no evidence of significant stenosis or dissection. Left carotid system: Visualization is mildly limited by suboptimal opacification. Calcified plaque is present at the bifurcation without significant stenosis. There is no evidence of dissection. There is a co-dominant vertebral artery system. Right vertebral: Calcified plaque at the origin produces a 50-75% stenosis. A small amount of calcified plaque is present at the C5 level without definite stenosis. Additional calcified plaque is present at the C3 level. No focal stenosis or dissection is noted and the vessel extends intracranially. Left vertebral: Visualization is mildly limited by streak artifact. The origin is not well seen. Minor calcified plaque is present in the P1 segment without stenosis. The remainder of the vessel is normal. Other: Soft tissues and bones: No evidence of lymphadenopathy or mass. CTA OF THE HEAD: Anterior circulation: There is extensive calcification of the intracranial internal carotid arteries with stenosis of approximately 50% to present bilaterally. The anterior and middle cerebral arteries are normal. Posterior circulation: The intracranial vertebral arteries are normal. A small amount of calcified plaque is present in the mid basilar artery without stenosis. The superior cerebellar arteries are normal. There is mild narrowing of the P2 segment of the right posterior cerebral artery. The left posterior cerebral arises predominantly through the posterior communicating artery. Veins: Major dural venous sinuses are patent. Other: Soft tissues and bones: No midline shift or effacement of the basal cisterns. No space-occupying hemorrhage. No territorial loss of zapata-white matter differentiation. IMPRESSION: 1. Mildly limited examination due to suboptimal opacification. 2. No evidence of stenosis or vessel injury involving the anterior circulation. 3. 50-75% stenosis at the origin of the right vertebral artery. No focal stenosis or dissection is demonstrated elsewhere in either vertebral artery. 4. No significant intracranial abnormality is demonstrated. WSN: [id number] Ordering Physician: Natalie Poole Signature Line Dictated By: Payam Alvarenga MD Dictated Date/Time: 08/10/23 2:16 pm Reviewed By: Payam Alvarenga MD Signed By: Payam Alvarenga MD Signed Date/Time: 08/10/23 2:16 pm Transcribed By: CHERELLE Transcribed Date/Time: 08/10/23 2:[address] Angio Head Hyperacute Stroke Chest Portable Event Date: 08/10/2023 13:45:18 EST Updated: 08/10/2023 13:51 EST XR Chest Portable This document has an image Reason For Exam Pain;Other: RESULT: Chest Portable Examination: Portable chest performed on 08/10/2023. History: Pain. Trauma. Findings: A frontal view of the chest is submitted without comparison. The cardiac silhouette is enlarged. Low lung volumes are present. Pulmonary vascular congestion is seen. The right hemidiaphragm is elevated. The osseous structures are unremarkable. IMPRESSION: Low lung volumes with pulmonary vascular congestion. WSN: [id number] Ordering Physician: Natalie Poole Signature Line Dictated By: Ana Nolasco MD Dictated Date/Time: 08/10/23 1:47 pm Reviewed By: Ana Nolasco MD Signed By: Ana Nolasco MD Signed Date/Time: 08/10/23 1:47 pm Transcribed By: CHERELLE Transcribed Date/Time: 08/10/23 1:47 pm Chest Portable Pelvis 1 or 2 Views Event Date: 08/10/2023 13:45:18 EST Updated: 08/10/2023 16:48 EST XR Pelvis 1 or 2 Views This document has an image Reason For Exam with Pain;Trauma RESULT: Pelvis 1 or 2 Views Pelvis 1 or 2 Views Reason: Trauma; with Pain; Clinical Question(s): Fracture COMPARISON: None. FINDINGS: Single AP view of the pelvis is somewhat limited due to positioning. No fractures or suspicious osseous lesions are seen. There are mild degenerative changes. IMPRESSION: No acute osseous abnormalities are identified. WSN: [id number] Ordering Physician: Natalie Poole Signature Line Dictated By: Alfie Marie MD Dictated Date/Time: 08/10/23 4:45 pm Reviewed By: Alfie Marie MD Signed By: Alfie Marie MD Signed Date/Time: 08/10/23 4:45 pm Transcribed By: CHERELLE Transcribed Date/Time: 08/10/23 4:44 pm Pelvis 1 or 2 Views Impression and Plan 72yoM cat2 trauma s/p unwitnessed fall, found on ground by SNF staff. ?LOC, - EtOH, GCS 10. He has no outward signs of traumatic injuries. He received a panscan and CTA head and neck for stroke concern. His GCS improved to [address] scan and he was now verbally answering questions with some confusion. If no traumatic injuries are identified, he will be a medicine admission and follow up with tertiary exam tomorrow. Injuries none Interventions none Consultants none Plan Medicine admission for AMS No acute surgical intervention at this time Trauma surgery will follow for a tertiary exam in AM Rest of care per primary team Please page trauma [phone] with any questions Discussed with Dr. Santoyo EKG study * Event Display: EKG Authored Date: * Event Display: ECG 12-Lead Authored Date: Please click on pdf link to open report * Event Display: ECG 12-Lead Authored Date: Ventricular Rate: 78 BPM Atrial Rate: 78 BPM P-R Interval: 236 ms QRS Duration: 84 ms Q-T Interval: 372 ms QTC Calculation(Bazett): 424 ms P Donnellson: 55 degrees R Donnellson: 15 degrees T Donnellson: 21 degrees Sinus rhythm with 1st degree A-V block Otherwise normal ECG No previous ECGs available Confirmed by MICHAEL ISBELL MD ([id number]) on 08/19/2023 6:54:46 AM Edgard: MICHAEL ISBELL MD Heart * Event Display: Echocardiogram - Complete Authored Date: [id number] Transthoracic Echocardiography Report (TTE) Patient Demographics Patient Name ARGENTINA PIPER Date of Study 08/11/2023 Corporate Gender Male Facility Race Black Ethnicity Date of 1950 Height: 68 inches Age 72 year(s) Weight: 185 pounds Accession Number [id number] BSA: 1.98 m2 Room Number [id number] BMI: 28.13 kg/m2 Referring Physician Not on Staff Interpreting Eduardo Crum MD Attending MD Physician Not on Staff Referring General Farmer Remy High Indications Syncope. Study Data Type of Study TTE procedure:Echo Complete-(Doppler, Colorflow) with Contrast. Procedure Information:Definity was administered by Facilities Mechanical Design Engineer. Study Date08/11/2023 Start Time: 08:59 AM Study Location: [facility] [place] Study Status: ER Patient Status: Routine Technical Quality: Technically difficult due to body habitus. EKG: Within normal limits HR: 69 bpm Contrast Medium: Definity. Amount - 2 ml 2D Measurements LV Diastolic Dimension: 5.1 cm LV Systolic Dimension: 3.1 cm LV Septum Diastolic: 1.66 cm LV PW Diastolic: 1.4 cm AO Root Dimension: 3.2 cm LA Dimension: 4.4 cm LA ESV (BP):74 ml LVOT Stroke Volume: 87.58 ml LA ESV Index: 37 ml/m2 Stroke Volume Index44.23 ml/m2 LVOT: 2.1 cm Cardiac Index:3.05 l/min/m2 Ascending Aorta:3.3 cm Doppler Measurements AV Peak Velocity: 149 cm/s MV Peak E-Wave: 73 cm/s AV Peak Gradient: 8.88 mmHg MV Peak A-Wave: 121 cm/s AV Mean Gradient: 5 mmHg MV E/A Ratio: 0.6 AV VTI:38.2 cm MV P1/2t: 70 msec LVOT Peak Velocity: 92.7 cm/s LVOT VTI25.3 cm MV Deceleration Time: 239 msec AV Area (Continuity):2.29 cm2 MV Area (PHT): 3.14 cm2 TR Velocity:211 cm/s TR Gradient:17.81 mmHg E' Septal Velocity: 6.09 cm/s E' Lateral Velocity: 8.27 cm/s E/Med E':11.28849 E/Lat E':8.582421 Cardiac Anatomy Left Ventricle/Interventricular Septum The left ventricular size is normal. The left ventricular wall thickness is moderately increased. The LV systolic function is normal. The left ventricular ejection fraction is 55-60%. There are no definite regional wall motion abnormalities. There is no doppler evidence of increased filling pressures. Left Atrium/Interatrial Septum The left atrium is severely dilated. Aortic Valve The aortic valve is trileaflet. The aortic valve appears mildly thickened. There is no aortic stenosis. There is no aortic regurgitation. Mitral Valve The mitral valve appears mildly thickened. There is trace mitral regurgitation. Aorta The ascending aorta and aortic root are normal in size. Right Ventricle The right ventricle is mildly dilated. Right ventricular systolic function appears preserved. Right Atrium The right atrium is normal in size. Pulmonic Valve The pulmonic valve appears grossly normal. There is trace pulmonic regurgitation. Tricuspid Valve The tricuspid valve is grossly normal. There is trace tricuspid valve regurgitation. Pumonary Artery An accurate pulmonary artery pressure could not be obtained. Venous Structures The inferior vena cava is poorly visualized. Pericardium/Extracardiac There is no significant pericardial effusion. Summary 1) The LV systolic function is normal. The left ventricular ejection fraction is 55-60%. There are no definite regional wall motion abnormalities 2) The left ventricular wall thickness is moderately increased. 3) The right ventricle is mildly dilated. Right ventricular systolic function appears preserved. 4) The left atrium is severely dilated. 5) The mitral valve appears mildly thickened. There is trace mitral regurgitation. Comparison No prior study available for comparison. Signature * Event Display: Echocardiogram - Complete Authored Date: Cardiology * Event Display: Cardiac Rhythm Strips Authored Date: * Event Display: Cardiac Rhythm Strips Authored Date: * Event Display: Cardiac Rhythm Strips Authored Date: Hospital Progress note * Channing Kamara RN: VERIFY, PERFORM, SIGN Event Display: Progress Note Hospital Authored Date: Patient: ARGENTINA PIPER Age: 72 years Sex: Male : 1950 Associated Diagnoses: None Author: Channing Kamara RN Findings Problem Related to Alteration in Neurological : Alteration in Neurological Function/new 08/21/2023 11:00 EST Alteration in Neuro status Related to Acute Stroke (CVA), Seizure, Other: metabolic encephalopathy; CVA Interventions, Neurological Assess/monitor neurologic status, Assess/monitor VS per unit standards & prn, Monitor Fluid & Electrolytes, Serum Osmolarity, Monitor speech fluency, aphasia, wordfinding difficulty, Physical assessment per unit standards . Alteration in Safety : Alteration in Safety/new 08/21/2023 11:00 EST Alteration in Safety Related to Other: secondary to CVA/? seizure. Hx of multiple falls and unsteady gait Interventions, Safety Provide info on community resources for education, support, Provide teaching as needed, Resolved problem, Interventions no longer in effect . Evaluation Mr. Piper is alert and oriented to self only, slurred speech with expressive aphasia. Toleratingthickened liquids. Pt going back to LTAC, report attempted 6 times and hung up all times, rn case management aware. IVs removed prior to discharge. . Discharge Information Date of Discharge 08/21/2023. Functional Assessment Personal hygiene: assist. Feeding ability: self. Nutritional Assessment Appetite: good. Psycho-Social Assessment Affect/behavior: cooperative. Mental status: confused. Orientation: person. Case Management Discharge Plan : Case Management Discharge Plan Data 08/21/2023 12:27 EST Discharge Level of Care at Discharge Intermediate Care Facility Discharge Nursing Homes/Rehab Facilities [facility] Discharge Transportation Arranged [facility] [address] [facility] Discharge Arranged Transport Date/Time 08/21/2023 14:00 Mode of Transportation Arranged Ambulance Name of Agency #1 [facility] [phone] Service Comments #1 Ambulance arranged for 2pm * Vivian Barrow: PERFORM, SIGN, VERIFY Event Display: Progress Note Hospital Authored Date: [id number] Patient: ARGENTINA PIPER Age: 72 years Sex: Male : 1950 Associated Diagnoses: None Author: Vivian Barrow Findings Narrative/Incidental Patient A&O x3. VSS. Speech is slurred.Patient arrived to the unit at approximately 23:00 from D6B. Lungs clear/dim. Abdomen round, semi-firm. Patient denies pain or SOB. No apparent distress noted. Primo in place draining clear yellow urine. Scheduled Meds administered crushed in applesauce. Tolerated well. Patient resting comfortably. Call cabrera within reach and bed in lowest position. Will continue with purposeful rounding. See CIS for further information.. Discharge Information Rehabilitation Discharge : Rehab Discharge Index 08/18/2023 13:50 EST Comments on treatment indicated 72 y/o M s/p unwitnessed fall. Complex medicalcourse while hospitalized including small cerebellar infarct. PT for balance, strengthening, bed mobility, transfers c RW. Rec return to LTC c PT. Full chart review completed Yes Hospital course Hospital course Other findings MRS: 5 Plan of care PT Gait training, Transfer training, Therapeutic exercise, Functional Activities, Balance training, Neuromuscular education * Apoorva Abel RN: VERIFY, PERFORM, SIGN Event Display: Progress Note Hospital Authored Date: [id number] Patient: ARGENTINA PIPER Age: 72 years Sex: Male : 1950 Associated Diagnoses: None Author: Apoorva Abel RN Findings Problem Related to Alteration in Neurological : Alteration in Neurological Function/new 08/20/2023 20:00 EST Alteration in Neuro status Related to Acute Stroke (CVA), Seizure, Other: metabolic encephalopathy; CVA Goals & Outcomes, Neurological Lab studies/diagnostic tests within pt specific limits, Pt is safe with transfers & activities, Pt will be hemodynamically stable, Pt will be Neurologically stable, Pt will maintain intact skin integrity, Pt will remain free from injury, Pt will resume/maintain adequate cardiac output, Pt will state importance of adhering to medication regime, Pt/caregiver will state strategies to reduce risk factors, Pt/caregiver will state understanding aspiration precautions, Pt/caregiver will state understanding of disease process, Pt/caregiver will state understanding of plan/goals of care, Pt will be without signs of aspiration, Pt/caregiver will be able to describe s/s of TIA/Stroke, Pt will be seizure controlled Interventions, Neurological Assess/monitor facial symmetry and tongue deviation, Assess pt using NIHSS scale on admit & D/C, Maintain oral suction at bedside, Review Speech Therapy recommendations for care, Teach aspiration precautions/diet modifications, Teach Pt/caregiver signs indicative of stroke BH Goals/Interventions, Neurological Yes Neurological, Problem Start 08/19/2023 11:19 Reviewed plan with, Neurological Patient Patient Progression, Neurological Pt progressing according to plan Comment: Neurological to be transferred to [place] [id number]. Not ordered for tele . Evaluation P. Alteration in Neurological Status I. Refer to Nursing Care Plan E. VSS and normothermic. No seizure activity or tremors noted. +corneal and gag reflexes. Jeannine against gravity and moderate resistance. No c/o pain. Alert and oriented to person, place, date and time. Has no memory of fall and LOC. Tongue is midline and smile symmetric. Unable to raise both eyebrows. Able to squeeze both eyes shut. PERRLA/3 mm and brisk. Tracking caregiver. Calm, cooperative and no impulsive tendencies noted. Affect is withdrawn. Speech is dysarthric. On dysphagia diet w/thickened liquids. Taking his pills crushed mixed w/applesauce. Following simple commands without delay orperseveration. Plan is for patient to transfer to [place] [address]. Report called to [facility]ons[facility] TAPIA prior to patient's transfer. Not ordered for telemetry. Provider Marbin Goetz aware of the fact that patient's SBP is >160. Previous prn orders for Labetol and Hydralazine for SBP>150 were discontinued. [place] [address] RN advised to obtain prn order for the same upon patient's arrival and to obtain order for POCs q 6 hrous. . Note * Channing Kamara RN: PERFORM Event Display: Discharge/Transfer Note Hospital Authored Date: [id number] Nursing Discharge Note Entered On: 08/21/2023 15:29 EST Performed On: 08/21/2023 15:29 EST by Channing Kamara RN Nursing Discharge Note 2 Discharge Time : 08/21/2023 15:30 EST Discharge Level of Care at Discharge : Intermediate Care Facility Discharge Nursing Homes/Rehab Facilities : [facility] Patient Left Unit Via : Ambulance Patient Accompanied Off Unit with : Ambulance/Chair Van Personnel Handover Given to Transport Personnel : Yes DC Instructions Provided & Signed by Pt : No Patient Understands D/C Instructions : No Patient Instructions Discharge Signed : Yes Did Pt have Specialty Bed or Wound Vac : No Channing Kamara RN - 08/21/2023 15:29 EST * Beatris Sun MD, Brenda: PERFORM, MODIFY Event Display: Discharge/Transfer Note Hospital Authored Date: Patient: ??ARGENTINA PIPER ? Age:??72 Years?Sex:??Male?:??1950?? 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 Underlying atrial fibrillation Remote history of CVA with left hemiplegia Seizure disorder Hypothermia Unwitnessed fall Hypothyroidism Cognitive impairment Diabetes Hypertension BPH COPD Coronary artery disease Hyperlipidemia Peripheral vascular disease Depression GERD CKD Schizophrenia Right renal mass _ Discharge Medications Acetaminophen (acetaminophen 325 mg oral tablet)?650?Milligram?By Mouth?Every 4 hours?as needed?Temperature Greater than 100.5?Pain , Mild Amlodipine (amLODIPine 10 mg oral tablet)?10?Milligram?1?tablet?By Mouth?Daily Chuckie apixaban?5?Milligram?By Mouth?2 times a day Atorvastatin (Lipitor 20 mg oral tablet)?20?Milligram?By Mouth?Daily at bedtime Benztropine (benztropine 1 mg oral tablet)?1?Milligram?By Mouth?2 times a day Cholecalciferol (cholecalciferol 2000 intl units oral tablet)?1?tab(s)?50?Microgram?By Mouth?Daily in AM Docusate (Docusate Sodium Capsule)?100?Milligram?1?capsule?By Mouth?2 times a day Finasteride (finasteride 5 mg oral tablet)?1?tab(s)?5?Milligram?By [...] every 15min until greater than 100 BS Insulin Lispro (insulin lispro 100 units/mL injectable solution)?2-10 units?Subcutaneous Injection?Every 4 hours Isosorbide Mononitrate (Imdur 30 mg oral tablet, extended release)?30?Milligram?By Mouth?Daily levETIRAcetam (Keppra 250 mg oral tablet)?1?tab(s)?250?Milligram?By Mouth?2 timesa day Levothyroxine (Synthroid 0.1 mg oral tablet)?100?Microgram?By Mouth?Daily Multivitamin?1?tab(s)?By Mouth?Daily in AM Olanzapine (olanzapine 5 mg oral tablet)?5?Milligram?By Mouth?Daily at bedtime Polyethylene Glycol 3350 (MiraLax oral powder for reconstitution)?17?gram?By Mouth?Daily?dissolve in water before taking Risperidone (risperiDONE 1 mg oral tablet)?3?Milligram?By Mouth?Daily at bedtime Risperidone (risperiDONE 1 mg oral tablet)?2?Milligram?By Mouth?Daily in AM Senna (Senna 8.6 mg oral tablet)?17.2?Milligram?2?tab(s)?By Mouth?Daily?as needed?for constipation Sucralfate (Carafate 1 gm oral tablet)?1?gram?1?tablet?By Mouth?3 times a day before meals Tamsulosin (tamsulosin 0.4 mg oral capsule)?0.8?Milligram?By Mouth?Daily ? Quality Measures Stroke Quality Measures:?Discharged on Antithrombotic Therapy:??Active Home Medication for Antithrombotic ?Statin Prescribed at Discharge:??Active Home Med for Statin ? Medications Started Keppra, risperidone, olanzapine, Imdur, benzatropine, apixaban, tamsulosin Medications Discontinued None Doses Changed Plan PCP Follow-Up/Heads-Up Follow-up in about 1 to 2 weeks Stroke, hypertension??follow-up. R renal mass -> Please arrange for MRI non urgent Objective Assessment and Plan 72 Y O M with PMH of CVA with left hemiplegia, cognitive impairment, A-fib on Eliquis, diabetes, hypertension, BPH, COPD, coronary artery disease, hyperlipidemia, peripheral vascular disc, depression, GERD, CKD and schizophrenia who was admitted from a long-term care facility where he had an unwitnessed fall, and found to be nonverbal.?? Imaging revealed a new acute left cerebellar small infarct,incidental renal mass, and seizure activity seen on EEG. Pt has a h/o CVA with residual left hemiparesis. He is non-ambulatory at baseline and requires assist of 2 to transfer to wheelchair ?? Cerebrovascular accident (CVA) due to embolism of left cerebellar artery (I63.442):?? -- Patient had previous history of CVA; during this hospitalization patient got MRI which showed Small focus of acute infarction in the left cerebellum -- MRI shows tiny left cerebellar acute and left cerebellar SA, likely embolic from afib -- Neuro exam:?? CN II-XII intact except mild left droop.?? RUE and??RLE??at least??4/5 and LUE:??shoulder??is??2-3/5 and LLE:??antigravity.??Babinski:??+ on left. DTRs: brisker on left -- Speech/Language: moderate dysarthria, Patient alert and answering??questions appropriately though he has slurred speech and slow??to respond -- Speech: Dysphagia level 3 with nectar thick -- Continue apixaban and Statin -- PMR: Recs rehab ?? Metabolic encephalopathy secondary to seizure disorder, and recent embolic CVA CAP Hypothermia Low suspicion of myxedema coma. Inf work up unremarkable,?? 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 --??VSS and HR 60 on d/c ? Seizure disorder (G40.909):?? Unwitnessed fall secondary to seizure vs CVA Patient had seizure during hospitalization with EEG showing focal focus of the left temporal region. -- Patient is verbal with slurred speech, slow to respond -- Cont keppra ( renally dosed) ?? Hypothyroidism TSH was 6.50, free T4 is 1.01, free T3 is 1.4 PO synthroid 100mcg daily ?? CKD (chronic kidney disease) (N18.9):?? -- Patient has CKD stage III--B --??Cr labile between 2.4 - 3.0 ?? Diabetes (E11.9):?? --??c/w short-acting??as needed insulin ?? Right kidney mass (N28.89):?? --??Patient was incidentally found to have??a right kidney mass??and patient got CT [facility] after found --??CT showed 1.2 cm enhancing exophytic lesion within the midpole of the right kidney concerning for neoplastic process. --??PCP to pursue this as an outpatient??Recommend MRI with gadolinium for better evaluation ?? Paroxysmal atrial fibrillation (I48.0):?? --??Currently bradycardic no need??for any other rate control agent?? -- anticoagulation with Eliquis as mentioned above ?? Hypertension (I10):?? --??c/w amlodipine ?? Schizophrenia (F20.9): ??-- Continue home meds including benztropine, Haldol, risperidone, olanzapine ?? VTE Prophylaxis:??On??Eliquis ?VTE Prophylaxis Assessment:??VTE Prophylaxis Ordered ?? Code Status:??DNR/DNI ?Order Code Status:??Code Status Ordered ?? Return back to the facility today ?? Vital Signs?? Temperature: 97.4 DegF (08/21/23 08:00:00) Temperature Route: Oral (08/21/23 08:00:00) Pulse Rate: 62 bpm (08/21/23 08:00:00) Heart Rate Monitored: 58 bpm (08/20/23 22:00:00) Respiratory Rate: 18 br/min (08/21/23 08:00:00) Systolic Blood Pressure:??155 mm Hg??High (08/21/23 10:07:00) Diastolic Blood Pressure: 71 mm Hg (08/21/23 10:07:00) Blood pressure sites: Arm, left (08/21/23 08:00:00) Pulse Pressure: 86 mm Hg (08/21/23 03:54:00) Oxygen Saturation: 98 % (08/21/23 08:00:00) Mode of Delivery (Oxygen): Room air (08/21/23 08:00:00) Early Warning Score: 2 (08/21/23 10:07:55) ? . Physical Exam Constitutional: Alert, NAD. Head EENT: Extraocular muscle movement intact.??Moist mucous membranes.?? Neck: Supple. No JVD. Respiratory: Bibasilar crackles. No use of accessory muscles. Cardiovascular: S1S2 regular. No murmurs, rubs or gallops. Gastrointestinal: Abdomen soft, non-tender, non-distended. Normal bowel sounds. Genitourinary: No CVA tenderness. Extremities: No lower extremity pitting??edema. No cyanosis or clubbing. -- Neuro exam:?? CN II-XII intact except mild left droop.?? RUE and??RLE??at least??4/5 and LUE:??shoulder??is??2-3/5 and LLE:??antigravity.??Babinski:??+ on left. DTRs: brisker on left -- Speech/Language: moderate dysarthria, Patient alert and answering??questions appropriately though he has slurred speech and slow??to respond ?? [facility]ants Neuro PMR ?? Pending Results Add On Lab Order ordered on 08/11/2023 Add On Lab Order ordered on 08/15/2023 Add On Lab Order ordered on 08/15/2023 Add On Lab Order ordered on 08/15/2023 Add On Lab Order ordered on 08/15/2023 BUN ordered on 08/18/2023 Blood Gas Arterial ordered on 08/15/2023 Blood Gas Arterial ordered on 08/16/2023 CBC w/ Differential ordered on 08/18/2023 Creatinine ordered on 08/18/2023 Electrolytes ordered on 08/18/2023 Hepatic Function Panel ordered on 08/12/2023 Transfuse RBCs ordered on 08/19/2023 Type and Screen ordered on 08/19/2023 Patient Education Titles Discharge Instructions for Atrial Fibrillation?? Stroke (Completed)?? Follow-Up Appointments Added Follow Up ?Time Frame ?Comments Mark Arredondo?1 to 2 weeks Post Discharge Care Diet: ??Dysphagia Advanced (Level 3) Diet ?? Activity: ??Ambulate with assistance 3 times a day unless otherwise specified ?? Code Status: ??No Resuscitation ?? Discharge ?08/21/23 11:48:00 EST Discharge Prescriptions ?ePrescribed, 08/21/23 11:48:00 EST Home Health Face to Face ^HomeHealth[facility]F Results Discharge Labs BACTERIOLOGY MRSA PCR Result Negative, MRSA target DNA not detected. ()?? 08/16/2023 11:59 S Aureus ??PCR Result Negative, SA target DNA not detected. ()?? 08/16/2023 11:59 ?? BLOOD BANK Blood Type O Positive ()?? 08/19/2023 13:20 Antibody Screen Negative ()?? 08/19/2023 13:20 RBC Unit ID [id number]-* ()?? 08/19/2023 13:32 RBC Available PT ()?? 08/19/2023 13:32 ?? BLOOD COUNT & DIFF WBC 10.2 k/mm3 ()?? 08/20/2023 03:38 RBC 2.87 m/mm3 (Low)?? 08/20/2023 03:38 Hgb 8.2 Gm/dL (Low)?? 08/20/2023 03:38 Hct 25.4 % (Low)?? 08/20/2023 03:38 MCV 88.5 femtoliters ()?? 08/20/2023 03:38 MCH 28.6 pg ()?? 08/20/2023 03:38 MCHC 32.3 g/dL (Low)?? 08/20/2023 03:38 Platelet Count 220 k/mm3 ()?? 08/20/2023 03:38 RDW-SD 55.2 femtoliters (High)?? 08/20/2023 03:38 MPV 10.9 femtoliters ()?? 08/20/2023 03:38 Nucleated RBC (Automated) 0.8 #/100 WBC'S ()?? 08/20/2023 03:38 Abs. NRBC 0.1 k/mm3 ()?? 08/20/2023 03:38 Abs. Neut 4.2 k/mm3 ()?? 08/12/2023 01:24 Abs. Lymph 1.5 k/mm3 ()?? 08/12/2023 01:24 Abs. Peñ[place] 0.6 k/mm3 ()?? 08/12/2023 01:24 Abs. Eo 0.1 k/mm3 ()?? 08/12/2023 01:24 Abs. Baso 0.0 k/mm3 ()?? 08/12/2023 01:24 Neut % 64.8 % ()?? 08/12/2023 01:24 Lymph % 22.5 % ()?? 08/12/2023 01:24 Peñuelas % 9.3 % ()?? 08/12/2023 01:24 Eos % 2.2 % ()?? 08/12/2023 01:24 Baso % 0.3 % ()?? 08/12/2023 01:24 Imm Gran 0.9 % ()?? 08/12/2023 01:24 Abs. Imm Gran 0.1 k/mm3 ()?? 08/12/2023 01:24 ?? BLOOD GAS pH 7.36 ()?? 08/19/2023 22:28 pCO2 48 mm Hg (High)?? 08/19/2023 22:28 pO2 64 mm Hg (Low)?? 08/19/2023 22:28 Bicarbonate, Estimated 27 mmol/L ()?? 08/19/2023 22:28 Specimen Type - Blood Gas ARTERIAL ()?? 08/19/2023 22:28 Percent O2 (FIO2) 21 ()?? 08/19/2023 22:28 ?? CARDIAC CK, Total 236 units/L ()?? 08/15/2023 08:01 CK MB Confirmation - Quant 4.1 ng/mL ()?? 08/15/2023 08:01 High Sensitivity Troponin (HSTnT) 40 ng/L (High)?? 08/11/2023 00:07 ? CHEM GENERAL Sodium 145 mmol/L ()?? 08/20/2023 03:38 Potassium 4.0 mmol/L ()?? 08/20/2023 03:38 Chloride 111 mmol/L (High)?? 08/20/2023 03:38 Bicarbonate Level 27 mmol/L ()?? 08/20/2023 03:38 Anion Gap 7 ()?? 08/20/2023 03:38 Glucose Level 111 mg/dL (High)?? 08/20/2023 03:38 Glucose, POC 155 mg/dL (High)?? 08/21/2023 06:59 Beta Hydroxybutyrate <0.05 mmol/L ()?? 08/19/2023 22:13 BUN 32 mg/dL (High)?? 08/20/2023 03:38 Creatinine-Blood 2.5 mg/dL (High)?? 08/20/2023 03:38 Estimated GFR Creatinine 26 ML/MIN/1.73 M2 ()?? 08/20/2023 03:38 Calcium 8.7 mg/dL ()?? 08/20/2023 03:38 Calcium, Ionized pH Corrected 1.22 mmol/L ()?? 08/19/2023 22:13 Phosphorus 3.8 mg/dL ()?? 08/19/2023 22:13 Magnesium 1.5 mg/dL (Low)?? 08/19/2023 22:13 Protein, Total 6.5 Gm/dL ()?? 08/15/2023 08:01 Albumin 3.3 Gm/dL (Low)?? 08/15/2023 08:01 AG Ratio 1.0 ()?? 08/15/2023 08:01 Alkaline Phosphatase 197 units/L (High)?? 08/15/2023 08:01 Amylase 275 units/L (High)?? 08/10/2023 13:24 Lipase 51 units/L ()?? 08/11/2023 00:07 AST (SGOT) 17 units/L ()?? 08/15/2023 08:01 ALT (SGPT) 15 units/L ()?? 08/15/2023 08:01 Bilirubin, Total <0.2 mg/dL ()?? 08/15/2023 08:01 Bilirubin, Direct <0.2 mg/dL ()?? 08/10/2023 16:03 Bilirubin, Indirect Direct bilirubin is less than the measureable limit. Therefore, indirect mg/dL ()?? 08/10/2023 16:03 Lactate 0.8 mmol/L ()?? 08/19/2023 22:13 Iron Level 68 mcg/dL ()?? 08/14/2023 02:26 Iron Binding Capacity, Unsaturated 252 mcg/dL ()?? 08/14/2023 02:26 Iron Binding Capacity, Estimated Total 320 mcg/dL ()?? 08/14/2023 02:26 % Iron Saturation 21 % ()?? 08/14/2023 02:26 Ferritin Level 83 ng/mL ()?? 08/14/2023 02:26 ?? ENDOCRINE/TUMOR MARKER TSH 6.50 uIU/mL (High)?? 08/17/2023 02:26 Free T4 1.01 ng/dL ()?? 08/17/2023 02:26 T3, Free 1.4 pg/mL (Low)?? 08/17/2023 02:26 Cortisol Level 7.0 ??g/dL ()?? 08/14/2023 02:26 ?? HEME OTHER Hold Lavender Top SPECIMEN DISCARDED AFTER 24 HOURS. ()?? 08/15/2023 09:27 Hold Lavender Top 2 SPECIMEN DISCARDED AFTER 24 HOURS. ()?? 08/15/2023 09:27 ?? IMMUNOLOGY GENERAL Transferrin 253 mg/dL ()?? 08/14/2023 02:26 ? MISC. CHEMISTRY Ammonia, Venous 30 ??mole/L ()?? 08/19/2023 22:13 Hold Green Top SPECIMEN DISCARDED AFTER 1 WEEK ()?? 08/15/2023 09:27 Hold Red Top SPECIMEN DISCARDED AFTER 1 WEEK ()?? 08/10/2023 13:24 ? TOXICOLOGY/TDM Ethanol, Serum or Plasma NONE DETECTED mg/dL ()?? 08/10/2023 13:24 Barbiturate Screen, Urine NONE DETECTED ()?? 08/10/2023 17:00 Cannabinoid Screen, Urine NONE DETECTED ()?? 08/10/2023 17:00 Cocaine Metabolite Screen, Urine NONE DETECTED ()?? 08/10/2023 17:00 Benzodiazepine Screen, Urine NONE DETECTED ()?? 08/10/2023 17:00 Amphetamine Screen, Urine NONE DETECTED ()?? 08/10/2023 17:00 Opiate Screen, Urine NONE DETECTED ()?? 08/10/2023 17:00 ? UA/URINALYSIS Appear/Color, Urine COLORLESS ()?? 08/15/2023 14:43 Specific [place], Urine 1.012 ()?? 08/15/2023 14:43 pH, Urine 6.5 ()?? 08/15/2023 14:43 Albumin, Urine 1+ (Abnormal)?? 08/15/2023 14:43 Glucose, Urine NEGATIVE ()?? 08/15/2023 14:43 Ketones, Urine NEGATIVE ()?? 08/15/2023 14:43 Bilirubin, Urine NEGATIVE ()?? 08/15/2023 14:43 Hemoglobin, Urine NEGATIVE ()?? 08/15/2023 14:43 Nitrite, Urine NEGATIVE ()?? 08/15/2023 14:43 Leukocyte, Urine NEGATIVE ()?? 08/15/2023 14:43 Urobilinogen NORMAL mg/dL ()?? 08/15/2023 14:43 WBC's, Urine <1 /HPF ()?? 08/15/2023 14:43 RBC's, Urine <1 /HPF ()?? 08/15/2023 14:43 Hold Urine Culture Testing available 48 hours from time of collection. ()?? 08/10/2023 17:00 ?? URINE OTHER Creatinine, Urine Random 28.3 mg/dL ()?? 08/14/2023 10:33 Sodium, Urine Random 126 mmol/L ()?? 08/14/2023 10:33 Urea Nitrogen, Urine Random 282.6 mg/dL ()?? 08/14/2023 10:30 Osmolality, Urine Random 377 mOsm/kg ()?? 08/14/2023 10:33 ?? VIROLOGY Influenza A PCR NEGATIVE ()?? 08/10/2023 13:31 Influenza B PCR NEGATIVE ()?? 08/10/2023 13:31 RSV PCR NEGATIVE ()?? 08/10/2023 13:31 COVID-19 PCR Specimen Source NASAL ()?? 08/10/2023 13:31 COVID-19 PCR Result NEGATIVE ()?? 08/10/2023 13:31 ? 55 minutes spent on discharge * Michael Zepeda RN: PERFORM, SIGN, VERIFY Event Display: Case Management Discharge Plan Authored Date: Patient: ARGENTINA PIPER Age: 72 years Sex: Male : 1950 Associated Diagnoses: None Author: Michael Zepeda RN Discharge Plan Case Management Discharge Plan : Case Management Discharge Plan Data 08/21/2023 12:27 EST Discharge Level of Care at Discharge [facility] Discharge Nursing Homes/Rehab Facilities [facility] Discharge Transportation Arranged [facility] [address] [place] [address] Discharge Arranged Transport Date/Time 08/21/2023 14:00 Mode of Transportation Arranged Ambulance Name of Agency #1 [facility] [phone] Service Comments #1 Ambulance arranged for 2pm * Anh TAPIA, Channing: PERFORM Event Display: Patient Education/Instruction Authored Date: Inpatient Adult Discharge Instructions [address] [address] Name: ARGENTINA PIPER : 1950 Visit: 08/10/2023 18:05:00 Current Date: 08/21/2023 13:46 Account: [id number] Inpatient Adult Discharge Instructions We would like [...] and their families. Surveys are administered by [employer] ?? If further treatment with your primary care physician or another doctor is recommended, it is important for you to keep the appointment. Call your primary care physician or return to the Emergency Department immediately if your condition worsens, fails to improve, or new symptoms develop. If you need to find a doctor, you can call [facility] [employer] for a referral at [phone] or toll free at [phone] or log in to [email or web address] ?? [facility], in keeping with [facility] guidance, no longer requires face masks for [...] a health care balaji of your choosing. [employer] is a website that allows you to securely view your medical information including your hospital discharge summary, office visit summaries, medications and follow-up visits. You can also request appointments, renew medications, and request access to your medical information using a health care balaji of your choosing, or just ask a question. You can enroll at [email or web address] or register during your next office visit. You have been discharged from [facility], Patient Care Unit: W4. If you have any questions regarding these instructions after you leave, please call us and we will be happy to assist you. 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 You may have had other tests and procedures not included in this list. Please discuss all test results with your provider. ABG Alcohol Level Ammonia Venous Amphetamine Urine Screen Amylase ART BLOOD GAS Barbiturate Urine Screen Basic Metabolic Panel Benzodiazepine Urine Screen Beta Hydroxybutyrate BUN Cannabinoid Urine Screen CBC CK (CREATINE KINASE) CKMB CONFIRMATION/QUANT Cocaine Urine Screen Complete Urinalysis Comprehensive Metabolic Panel CORTISOL COVID-19, RSV, and Flu A/B, Rapid PCR Creatinine Electrolytes FERRITIN FREE T4 Glucose Level GLUCOSE POC Hepatic Function Panel HOLD GREEN TUBE HOLD LAVENDER TOP X2 Hold Red Top Tube Ionized Calcium IRON & TIBC Lactate Level Lactic Acid Level Lipase Magnesium Level Mg Level MRSA PCR Nasal Swab Opiate Screen Urine Phosphorus Level Potassium Level T3 Free T4 Free TRANSFERRIN Troponin T, High Sensitivity TSH UREA NITROGEN, URINE MG/DL Urinalysis w/hold for Urine Culture Urine Creatinine Urine Osmolality Urine Sodium Brain MRI W+W/O Contrast CT Abd/Pelvis W/ IV Contrast Only CT Angio Head Hyperacute Stroke CT Angio Neck Hyperacute Stroke CT Cervical Spine W/O Contrast CT Chest W/ Contrast CT Head-Hyper Acute Stroke CT Head/Brain W/O Contrast XR Chest Portable XR Pelvis 1 or 2 Views Primary Care Provider Arnulfo PRADO, Mark Advance Directive Health Care Proxy on File No Discharge Vitals Temperature: 97.4 DegF Weight: 96.5 kg Pulse Rate: 62 bpm ?? Respiratory Rate: 18 br/min ?? Systolic Blood Pressure:??155 mm Hg??High ?? Diastolic Blood Pressure: 71 mm Hg ?? Oxygen Saturation: 98 % ?? Studies Pending All tests and labs ordered during this hospital stay have been completed unless listed below. Please discuss all pending results with your provider listed above in these instructions. ?? Add On Lab Order BUN Blood Gas Arterial (ABG) CBC w/ Differential Creatinine Electrolytes Hepatic Function Panel (LFT's) Transfuse RBCs Type and Screen What to do next Instructions From Your Doctor Discharge Orders Diet:??Dysphagia Advanced (Level 3) Diet Activity:??Ambulate with assistance 3 times a day unless otherwise specified Code Status:?? No Resuscitation You Need to Schedule the Following Appointments Follow Up with??Mark Arredondo When:??Within 1 to 2 weeks Where: [address] [facility] [place] [address]- Business (1) Discharge Medications ARGENTINA PIPER :1950 Visit Date:08/10/2023 Medications: Please continue your medications until treatment is completed or stopped by your provider. Medications not listed below should be discontinued. Discuss any questions related to medications with your provider. What How Much When Instructions Next Dose New apixaban 5 Milligram Oral Twice a day Today (08/21/2023) at pm New Atorvastatin (Lipitor 20 mg oral tablet) 20 Milligram Oral Daily at Bedtime Today (08/21/2023) at pm New Benztropine (benztropine 1 mg oral tablet) 1 Milligram Oral Twice a day Today (08/21/2023) at pm New Insulin Lispro (insulin lispro 100 units/ mL injectable solution) 2-10 units Subcutaneous Injection Every 4 hours Today (08/21/2023) at dinner time New Isosorbide Mononitrate (Imdur 30 mg oral tablet, extended release) 30 Milligram Oral Daily Tomorrow (08/22/2023) in the morning New levETIRAcetam (Keppra 250 mg oral tablet) 1 tab(s) Oral Twice a day Today (08/21/2023) at pm New Levothyroxine (Synthroid 0.1 mg oral tablet) 100 Microgram Oral Daily Tomorrow (08/22/2023) in the morning New Olanzapine (olanzapine 5 mg oral tablet) 5 Milligram Oral Daily at Bedtime Today (08/21/2023) at pm New Risperidone (risperiDONE 1 mg oral tablet) 3 Milligram Oral Daily at Bedtime Today (08/21/2023) at pm New Risperidone (risperiDONE 1 mg oral tablet) 2 Milligram Oral Daily in the morning Tomorrow (08/22/2023) in the morning New Tamsulosin (tamsulosin 0.4 mg oral capsule) 0.8 Milligram Oral Daily Tomorrow (08/22/2023) in the morning Changed Acetaminophen (acetaminophen 325 mg oral tablet) 650 Milligram Oral Every 4 hours as needed for Pain , Mild Temperature Greater than 100.5 ?? As needed Changed Docusate (Docusate Sodium Capsule) 100 Milligram Oral Twice a day Today (08/21/2023) at pm Changed Glucagon (Gvoke HypoPen 1 mg/ 0.2 mL subcutaneous solution) 1 Milligram Subcutaneous Injection Once as needed for Hypoglycemia As needed Unchanged Amlodipine (amLODIPine 10 mg oral tablet) 1 tab(s) Oral Daily in the morning Tomorrow (08/22/2023) in the morning Unchanged Cholecalciferol (cholecalciferol 2000 intl units oral tablet) 1 tab(s) Oral Daily in the morning Tomorrow (08/22/2023) in the morning Unchanged Finasteride (finasteride 5 mg oral tablet) 1 tab(s) Oral Daily in the morning Tomorrow (08/22/2023) in the morning Unchanged Folic Acid (folic acid 1 mg oral tablet) 1 tab(s) Oral Daily in the morning Tomorrow (08/22/2023) in the morning Unchanged Glucose (Insta-Glucose 24 g/ 31 g oral gel) See instructions gel BS <60 with S/ S (if resident is able to take by mouth) give glucose 1 tube by mouth - recheck & retreat every 15min until greater than 100 BS ?? Unchanged Multivitamin 1 tab(s) Oral Daily in the morning Tomorrow (08/22/2023) in the morning Unchanged Polyethylene Glycol 3350 (MiraLax oral powder for reconstitution) 17 gram Oral Daily dissolve in water before taking ?? Tomorrow (08/22/2023) in the morning Unchanged Senna (Senna 8.6 mg oral tablet) 2 tab(s) Oral Daily as needed for for constipation As needed Unchanged Sucralfate (Carafate 1 gm oral tablet) 1 tab(s) Oral 3 times a day before meals Today (08/21/2023) before dinner Test Results Below is a partial list of the most recent Laboratory test results done prior to this discharge. You may have had other tests and procedures not included in this list. Please discuss all test resultswith your provider. Antibody Screen - Negative (08/19/2023) Blood Type - O Positive (08/19/2023) RBC Available - PT (08/19/2023) RBC Unit ID - [id number]-* (08/19/2023) ABG (08/19/2023) ???pH - 7.36???pCO2 - 48 mm Hg???pO2 - 64 mm Hg???Bicarbonate, Estimated - 27 mmol/L???Specimen Type - Blood Gas - ARTERIAL???Percent O2 (FIO2) - 21 Alcohol Level (08/10/2023) ???Ethanol, Serum or Plasma - NONE DETECTED Ammonia Venous (08/19/2023) ???Ammonia, Venous - 30 ??mole/L Amphetamine Urine Screen (08/10/2023) ???Amphetamine Screen, Urine - NONE DETECTED Amylase (08/10/2023) ???Amylase - 275 units/L ART BLOOD GAS (08/16/2023) ???pH - 7.33???pCO2 - 54 mm Hg???pO2 - 137 mm Hg???Bicarbonate, Estimated - 28 mmol/L???Specimen Type - Blood Gas - ARTERIAL???Percent O2 (FIO2) - 24 Barbiturate Urine Screen (08/10/2023) ???Barbiturate Screen, Urine - NONE DETECTED Basic Metabolic Panel (08/20/2023) ???Sodium - 145 mmol/L???Potassium - 4.0 mmol/L???Chloride - 111 mmol/L???Bicarbonate Level - 27 mmol/L???Anion Gap - 7???Glucose Level - 111 mg/dL???BUN - 32 mg/dL???Creatinine-Blood - 2.5 mg/dL???Estimated GFR Creatinine - 26 ML/MIN/1.73 M2???Calcium - 8.7 mg/dL Benzodiazepine Urine Screen (08/10/2023) ???Benzodiazepine Screen, Urine - NONE DETECTED Beta Hydroxybutyrate (08/19/2023) ? ?Beta Hydroxybutyrate - <0.05 mmol/L BUN (08/19/2023) ???BUN - 34 mg/dL Cannabinoid Urine Screen (08/10/2023) ???Cannabinoid Screen, Urine - NONE DETECTED CBC (08/20/2023) ???WBC - 10.2 k/mm3???RBC - 2.87 m/mm3???Hgb - 8.2 Gm/dL???Hct - 25.4 %???MCV - 88.5 femtoliters???MCH - 28.6 pg???MCHC - 32.3 g/dL???Platelet Count - 220 k/mm3???RDW-SD - 55.2 femtoliters???MPV - 10.9 femtoliters???Nucleated RBC (Automated) - 0.8 #/100 WBC'S???Abs. NRBC - 0.1 k/mm3 CK (CREATINE KINASE) (08/15/2023) ???CK, Total - 236 units/L CKMB CONFIRMATION/QUANT (08/15/2023) ???CK MB Confirmation - Quant - 4.1 ng/mL Cocaine Urine Screen (08/10/2023) ???Cocaine Metabolite Screen, Urine - NONE DETECTED Complete Urinalysis (08/15/2023) ???Appear/Color, Urine - COLORLESS???Specific [place], Urine - 1.012???pH, Urine - 6.5???Albumin, Urine - 1+???Glucose, Urine - NEGATIVE???Ketones, Urine - NEGATIVE???Bilirubin, Urine - NEGATIVE???Hemoglobin, Urine - NEGATIVE???Nitrite, Urine - NEGATIVE???Leukocyte, Urine - NEGATIVE???Urobilinogen - NORMAL? ?WBC's, Urine - <1 /HPF? ?RBC's, Urine - <1 /HPF Comprehensive Metabolic Panel (08/15/2023) ???Sodium - 144 mmol/L???Potassium - 4.3 mmol/L???Chloride - 107 mmol/L???Bicarbonate Level - 26 mmol/L???Anion Gap - 11???Glucose Level - 82 mg/dL???BUN - 42 mg/dL???Creatinine-Blood - 2.4 mg/dL???Estimated GFR Creatinine - 27 ML/MIN/1.73 M2???Calcium - 9.3 mg/dL???Protein, Total - 6.5 Gm/dL???Albumin - 3.3 Gm/dL???AG Ratio - 1.0???Alkaline Phosphatase - 197 units/L???AST (SGOT) - 17 units/L???ALT (SGPT) - 15 units/L? ?Bilirubin, Total - <0.2 mg/dL CORTISOL (08/14/2023) ???Cortisol Level - 7.0 ??g/dL COVID-19, RSV, and Flu A/B, Rapid PCR (08/10/2023) ???Influenza A PCR - NEGATIVE???Influenza B PCR - NEGATIVE???RSV PCR - NEGATIVE???COVID-19 PCR Specimen Source - NASAL???COVID-19 PCR Result - NEGATIVE Creatinine (08/19/2023) ???Creatinine-Blood - 2.7 mg/dL???Estimated GFR Creatinine - 25 ML/MIN/1.73 M2 Electrolytes (08/19/2023) ???Sodium - 145 mmol/L???Potassium - 4.1 mmol/L???Chloride - 111 mmol/L???Bicarbonate Level - 26 mmol/L???Anion Gap - 8 FERRITIN (08/14/2023) ???Ferritin Level - 83 ng/mL FREE T4 (08/15/2023) ???Free T4 - 1.12 ng/dL Glucose Level (08/19/2023) ???Glucose Level - 116 mg/dL GLUCOSE POC (08/21/2023) ???Glucose, POC - 268 mg/dL Hepatic Function Panel (08/10/2023) ???Protein, Total - 7.3 Gm/dL???Albumin - 3.8 Gm/dL???Alkaline Phosphatase - 240 units/L???AST (SGOT) - 21 units/L? ?ALT (SGPT) - 18 units/L? ?Bilirubin, Total - 0.2 mg/dL? ?Bilirubin, Direct - <0.2 mg/dL???Bilirubin, Indirect - Direct bilirubin is less than the measureable limit. Therefore, indirect HOLD GREEN TUBE (08/15/2023) ???Hold Green Top - SPECIMEN DISCARDED AFTER 1 WEEK HOLD LAVENDER TOP X2 (08/15/2023) ???Hold Lavender Top - SPECIMEN DISCARDED AFTER 24 HOURS.???Hold Lavender Top 2 - SPECIMEN DISCARDED AFTER 24 HOURS. Hold Red Top Tube (08/10/2023) ???Hold Red Top - SPECIMEN DISCARDED AFTER 1 WEEK Ionized Calcium (08/19/2023) ???Calcium, Ionized pH Corrected - 1.22 mmol/L IRON & TIBC (08/14/2023) ???Iron Level - 68 mcg/dL???Iron Binding Capacity, Unsaturated - 252 mcg/dL???Iron Binding Capacity, Estimated Total - 320 mcg/dL???% Iron Saturation - 21 % Lactate Level (08/15/2023) ???Lactate - 0.6 mmol/L Lactic Acid Level (08/19/2023) ???Lactate - 0.8 mmol/L Lipase (08/11/2023) ???Lipase - 51 units/L Magnesium Level (08/16/2023) ???Magnesium - 1.7 mg/dL Mg Level (08/19/2023) ???Magnesium - 1.5 mg/dL MRSA PCR Nasal Swab (08/16/2023) ???MRSA PCR Result - Negative, MRSA target DNA not detected.???S Aureus PCR Result - Negative, SA target DNA not detected. Opiate Screen Urine (08/10/2023) ???Opiate Screen, Urine - NONE DETECTED Phosphorus Level (08/19/2023) ???Phosphorus - 3.8 mg/dL Potassium Level (08/10/2023) ???Potassium - 5.6 mmol/L T3 Free (08/17/2023) ???T3, Free - 1.4 pg/mL T4 Free (08/17/2023) ???Free T4 - 1.01 ng/dL TRANSFERRIN (08/14/2023) ???Transferrin - 253 mg/dL Troponin T, High Sensitivity (08/11/2023) ???High Sensitivity Troponin (HSTnT) - 40 ng/L TSH (08/17/2023) ???TSH - 6.50 uIU/mL UREA NITROGEN, URINE MG/DL (08/14/2023) ???Urea Nitrogen, Urine Random - 282.6 mg/dL Urinalysis w/hold for Urine Culture (08/10/2023) ???Appear/Color, Urine - COLORLESS???Specific [place], Urine - 1.016???pH, Urine - 6.5???Albumin, Urine - 2+???Glucose, Urine - NEGATIVE???Ketones, Urine - NEGATIVE???Bilirubin, Urine - NEGATIVE???Hemoglobin, Urine - 1+???Nitrite, Urine - NEGATIVE???Leukocyte, Urine - NEGATIVE???Urobilinogen - NORMAL? ?WBC's, Urine - 3 /HPF? ?RBC's, Urine - <1 /HPF? ?Hold Urine Culture - Testing available 48 hours from time of collection. Urine Creatinine (08/14/2023) ???Creatinine, Urine Random - 28.3 mg/dL Urine Osmolality (08/14/2023) ???Osmolality, Urine Random - 377 mOsm/kg Urine Sodium (08/14/2023) ???Sodium, Urine Random - 126 mmol/L Allergies (NKA means No Known Allergies) NKA Problems No qualifying data available Education Materials Below is the list of Educational Leaflet Providered with your Discharge Instructions. Discharge Instructions for Atrial Fibrillation?? Stroke (Completed)?? Valuables and Belongings I fully understand and agree that [facility] accepts no responsibility for all my personal [...] Review of Valuable and Belonging List: With patient Date for Pt to Sign Valuables/Belongings: 08/16/23 11:34:00 ?? Other Discharge Information ?? Wound Assessment?? Wound Assessment?? Wound Location I: Leg, right lower Wound Type I: Skin Tear ?? Case Management Discharge Plan?? Discharge Plan?? Discharge Agency Information?? Discharge Level of Care at Discharge: [facility] Name of Agency #1: [facility] ??[phone] Discharge Transportation Arranged: [facility] [address] ??[phone] Service Comments #1: Ambulance arranged for 2pm Mode of Transportation Arranged: Ambulance ?? Discharge Arranged Transport Date/Time: 08/21/23 14:00:00 ?? Discharge Nursing Homes/Rehab Facilities: [facility] ? Pulmonary Rehab Status?? Pulmonary Rehab Discharge [...] are strongly encouraged to quit. Please call [facility] at [phone] or [phone] or log in to [email or web address] for referrals to smoking cessation programs. ?? 996 Suicide & Crisis Lifeline is available 27/04 if you or someone you know needs to find a reason to keep living. By calling 451 you'll be connected to a skilled, trained counselor at a crisis center in your area. INPATIENT DISCHARGE INSTRUCTIONS SIGNATURE PAGE ARGENT[place] PIPER Location:[facility] Registration Date and Time:08/10/2023 18:05 EST Primary Care Physician: Mark Arredondo MD, Attending Physician: Brenda Downs MD, I ARGENTINA PIPER, have received the above patient education materials/instructions and have verbalized understanding. If ambulance or transport services are being used I further acknowledge being given a choice of service. ?? If you need to contact me, please call me at this number: . Patient/Pulp Maker Name: Patient/Pulp Maker Signature: Relationship to Patient: Witness Name/Signature: Date: * Brenda Downs MD: PERFORM, SIGN, VERIFY Event Display: Patient Education Handout Authored Date: [id number] * Brenda Downs MD: PERFORM Event Display: Patient Education Leaflets Authored Date: [id number] Discharge Instructions for Atrial Fibrillation ?? [id number] Discharge Instructions for Atrial Fibrillation You have been diagnosed with an abnormal heart rhythm called atrial fibrillation (AFib).??This means your heart???s 2 upper chambers quiver rather than squeeze the blood out in a normal pattern. Thisleads to an irregular and sometimes rapid heartbeat. Some people will have symptoms such as a flip-flopping heartbeat, chest pain, lightheadedness, or shortness of breath. Other people may have no symptoms at all. AFib is serious because it affects the heart???s ability to fill with blood as it should. Blood clots may form. This increases the risk for stroke. Untreated, it can also lead to heart failure. AFib can be controlled. With??treatment, most??people lead normal lives. Treatment options Treatment for AFib depends on your age, symptoms, how long you have had it, and other factors. You will have??a complete evaluation to find out if you have any abnormalities that caused your heart togo into AFib. This might be blocked heart arteries, heart valve problems, or a thyroid problem. Your doctor will assess your case and discuss choices with you. Treatment choices may include: ??? Treating an underlying??disorder that puts you at risk for atrial fibrillation. For example, correcting an abnormal thyroid or electrolyte problem, or treating a blocked heart artery. ??? Restoring a normal heart rhythm with an electrical shock (cardioversion) or with an antiarrhythmic medicine (chemical cardioversion). ??? Using medicine to control your heart rate and rhythm. ??? Taking blood-thinning medicines (anticoagulants). These lower the??risk for blood clot and stroke. Blood-thinners range from aspirin and clopidogrel to others such as rivaroxaban and warfarin. ??? Having a procedure such as left atrial appendage closure. In this procedure, a small pouch in the top of your atrium is blocked off. This pouch is where blood clots often form. The procedure can prevent blood clotsand reduce stroke risk without the need for a blood thinner. ??? Doing catheter ablation or a surgical maze procedure. These??procedures use different methods to create scar tissue in certain areas of heart. This stops the abnormal electrical signals that cause AFib.??This may be an option when??medicines don't work. It may be used instead of taking a medicine long goods drier. Your provider may advise other treatment choices. Managing risk factors for stroke and preventing heart failure are important parts of any??treatmentplan for AFib. ?? Home care ??? Take your medicines exactly as directed. Don???t skip doses. ??? Work with your healthcare provider to find the right medicines and doses for you. ??? Learn to take your own pulse. Keepa record of your results. Ask your provider which pulse rates mean that you need medical attention.Slowing your pulse is often the goal of treatment. Ask your provider if it???s OK for you to use anautomatic machine to check your pulse at home. Sometimes these machines don???t count the pulse correctly with AFib. ??? Limit how much coffee, tea, cola, and other drinks with caffeine you have. Askyour provider if you should cut out all caffeine. ??? Don't take fevg-ide-mgslkpg medicines that have caffeine in them. Also don't take medicines with pseudoephedrine. ??? Let your provider know whatmedicines you take. These include prescription and osmm-oka-jczzvtx medicines, as well as any supplements. They interfere with some medicines given for AFib. ??? Ask your provider if ??you can drink alcohol. Some people need to cut out??alcohol??to better treat AFib. If you are taking blood-thinnermedicines, alcohol may interfere with them by increasing their effect. ??? Never take stimulants such as amphetamines or cocaine. These drugs can speed up??your heart rate and trigger AFib. ??? Manage your weight. If you are above your ideal body weight, losing excess pounds can reduce your incidence of AFib. ?? Follow-up care Follow up with your healthcare provider as advised. ?? When to call your healthcare provider Call your healthcare provider right away if you have any of the following: ??? Weakness ??? Dizziness ??? Fainting ??? Tiredness (fatigue) ??? Shortness of breath ??? Chest pain with increased activity ??? A change in the usual regularity of your heartbeat, or an unusually fast heartbeat ?? Last Reviewed Date: 2021 ?? 3443-7125 [employer]. All rights reserved. This information is not intended as a substitute for professional medical care. Always follow your healthcare professional's instructions. ?? * Beatris Sun MD, Aiswerya: PERFORM Event Display: Patient Education Leaflets Authored Date: [id number] Stroke (Completed) ?? [id number] Stroke (Completed) You have had a stroke, or cerebrovascular accident (CVA). This is caused by a loss of blood flow topart of your brain. Ischemic type strokes can occur when a blood clot forms inside the carotid artery (main artery from the heart to the brain). Or a clot can form inside the heart and travel to the brain to lodge in a blood vessel and block blood flow. Another common ischemic cause of stroke is a gradual narrowing of the arteries in the brain because of buildup of fatty deposits (plaque). A clotcan form at such a narrowing. Less commonly, infection or cancer can cause ischemic stroke. An autoimmune disease can cause inflammation of the blood vessels and also lead to stroke. A second type of stroke is hemorrhagic stroke. It occurs when a blood vessel ruptures and causes bleeding inside the brain . Symptoms Blocked blood flow in different areas of the brain can cause different symptoms. If you have had a stroke before, a new one may be different. A memory aid for the basic signs of a stroke is B.E.F.A.S.T. B.E. F.A.S.T. ??? B is for balance. Sudden loss of balance or coordination. ??? E is for eyes. Vision changes in one or both eyes. ??? F is for face drooping. Drooping or numbness on one side of the face. This maybe more noticeable when you ask the affected person to smile. ??? A is for arm weakness or numbness. The affected person may have trouble using or lifting one side. ??? S is for speech difficulty. Speech may be slurred or hard to understand. The affected person may also use the wrong words. ??? T is for time to call 911. Time is critical in treating a stroke. Call 911 as soon as you suspect a stroke has happened???even a small one. The sooner treatment is started the better, even if the symptoms go away. Other common symptoms of a stroke include: ??? Having trouble getting the right words to come out ??? Weakness in one leg ??? Numbness on one side ??? Trouble walking ??? Trouble with coordination ??? Trouble with vision ??? Severe headache ??? Confusion ??? Dizziness ?? Treatment After you have had a stroke, you are at risk of having another. Be sure to follow up with your healthcare provider for more assessment and treatment. If problems are found, your healthcare provider will advise treatment with medicines, procedures, or both. To reduce your chance of having another stroke, you may be prescribed medicines. These include medicines to prevent blood clots, such as antiplatelet or anticoagulant medicines. Certain heart conditions can be treated with surgery to reduce the risk for more strokes. Surgery to open up a blockage in the carotid artery (endarterectomy) may also reduce the risk for future strokes. You will likely need physical therapy, including speech and occupational therapy if appropriate. This can be done at home, at an outpatient office, or in a rehabilitation hospital. Which location depends on your needs and abilities. ?? Home care ??? Rest at home and don't exert yourself for the next few days. ??? If your healthcare provider has prescribed medicines, take them as directed. ?? Follow-up care Follow up with your healthcare provider, or as advised. Additional tests may be needed. If you had an X-ray, CT scan, MRI, or ECG (electrocardiogram), it will be reviewed by a specialist. You will benotified of any new findings that will affect your care. ?? Call 911 Call 911 if any of these occur: ??? Any of your stroke symptoms worsen ??? Sudden new problems with speech, confusion, vision, walking, coordination, facial droop, or weakness or numbness on one side of your body ??? Severe headache, fainting spell, dizziness, or seizure ??? Chest pain or shortness of breath Remember B.E. F.A.S.T. (described above). If you notice warning signs and symptoms of stroke, Call [address] yourself or the victim. The ambulance can alert the hospital and start treatment. ?? Last Reviewed Date: 2022 ?? [id number] [employer]. All rights reserved. This information is not intended as a substitute for professional medical care. Always follow your healthcare professional's instructions. ?? Patient Care team information Care Team Personnel Name: Francine TAPIA, Nevaeh Position: [facility] RN Member Role: Primary Care Nurse Name: Corwin Rosas RN Position: [facility] RN Member Role: Primary Care Nurse Name: Torito Nicole RN Position: [facility] RN Member Role: Primary Care Nurse Name: Fatimah Greco RN Position: [facility] RN Member Role: Primary Care Nurse Name: Kellee Solis RN Position: [facility] RN Member Role: Primary Care Nurse Name: Rody Bianchi RN Position: [facility] RN Member Role: Primary Care Nurse Name: Apoorva Abel RN Position: [facility] RN Member Role: Primary Care Nurse Name: Mark Arredondo MD Position: [facility] Outreach Member Role: PCP Address: Address: [address] [place] [phone] [place] Name: Luca Leslie RN Position: [facility] RN Member Role: Primary Care Nurse Name: Sharita Thomas RN Position: [facility] RN Member Role: Primary Care [facility] Attending Position: [facility] ED Attendings Patient Name: Vivian Barrow Position: [facility] RN Member Role: Patient Care Provider Name: Kyara Suazo RN Position: [facility] ED RN W/OE and Tasks Member Role: Patient Care Provider Name: Luli Aguilera Position: [facility] ED TA [facility] Member Role: Paint Tester Name: Vincent Alexander MD Position: [facility] Resident Member Role: ED Resident Address: Address: [address] [place] [phone] [place] Name: Jeane Ramos Position: [facility] TA Member Role: Patient Care Provider Name: Alfreda Scruggs Position: [facility] ED OA Charge Member Role: ED Associate
--- OUTSIDE RECORDS SUMMARY | 2024-06-14 12:02 | XMS_ITS | Continuity of Care Document ---
Author Organization [facility] ter Address [address] [place] [id number] Care Team Providers Care Cloth Mercerizer Operator Name Role Phone Arnulfo PRADO, Mark Primary Care Physician [phone] Encounter [facility] Date(s): 10/23/23 - 11/05/[address] [address]- Encounter Diagnosis Sepsis(Final) - 10/24/23 Discharge Disposition: A-Transfer SNF Attending Physician: Ken Mckeon MD Admitting Physician: Emy PRADO, Alanna Osei Referring Physician: Not on Staff, Referring MD [...] Results Orders for Microbiology Reports Name Date Urine Culture (URINE CULTURE) 10/23/23 Blood Culture 10/23/23 Blood Culture #2 10/23/23 Microbiology Reports TEST:Urine Culture STATUS:Auth (Verified) BODY SITE: SOURCE:URINE COLLECTED DATE/TIME:10/23/23 7:54 PM Urine Culture SPECIMEN DESCRIPTION : URINE SPECIAL REQUESTS : NONE CULTURE : >100,000 COL/ML PROTEUS MIRABILIS This isolate was identified using Maldi-TOF system These AST results were performed on the Vitek 2 ID and AST system REPORT STATUS : FINAL 10/26/2023 ORGANISM >100,000 COL/ML PROTEUS MIRABILIS This isolate was identified using Maldi-TOF system These AST results were performed on the Vitek 2 ID and AST system METHOD MIN. INHIB. CONC. (MCG/ML) AMPICILLIN RESISTANT AMPICILLIN/SULBACTAM SUSCEPTIBLE CEFAZOLIN SUSCEPTIBLE CEFEPIME SUSCEPTIBLE CEFTRIAXONE SUSCEPTIBLE CIPROFLOXACIN SUSCEPTIBLE ERTAPENEM SUSCEPTIBLE GENTAMICIN SUSCEPTIBLE LEVOFLOXACIN SUSCEPTIBLE NITROFURANTOIN RESISTANT PIPERACILLIN/TAZOBAC SUSCEPTIBLE TRIMETH/SULFAMETHOX RESISTANT TEST:Blood Culture, Second Order STATUS:Auth (Verified) BODY SITE: SOURCE:Blood COLLECTED DATE/TIME:10/23/23 1:30 PM Blood Culture, Second Order SPECIMEN DESCRIPTION : BLOOD RA SPECIAL REQUESTS : NONE CULTURE : NO GROWTH 5 DAYS. REPORT STATUS : FINAL 10/28/2023 TEST:Blood Culture STATUS:Auth (Verified) BODY SITE: SOURCE:Blood COLLECTED DATE/TIME:10/23/23 1:29 PM Blood Culture SPECIMEN DESCRIPTION : BLOOD LA SPECIAL REQUESTS : NONE CULTURE : NO GROWTH 5 DAYS. REPORT STATUS : FINAL 10/28/2023 Radiology Reports * Exam Date Time Procedure Performing Provider Status 10/30/23 12:01 PM Chest Portable Emily Abraham; Auth (Verified) Notes: (Chest Portable) Reason For Exam: Concern for aspiration;Other: RESULT: Chest Portable Chest Portable Reason: Concern for aspiration; Clinical Question(s): Aspiration COMPARISON: Multiple priors most recently dated 10/28/2023, CT chest 10/23/2023 FINDINGS: Slightly limited examination due to the patient's body habitus and underpenetration. LINES AND TUBES: The enteric tube has been removed since the prior examination. LUNGS AND PLEURA: Low lung volumes with crowding of the vessels. Unchanged left retrocardiac density. Minimal right basilar atelectasis and/or infiltrates. Unchanged small left pleural effusion. . No pneumothorax. HEART, MEDIASTINUM AND KWAKU: Heart is normal in size. Normal mediastinal and hilar contour. BONES AND SOFT TISSUES: No acute abnormality. IMPRESSION: Unchanged left retrocardiac density and small left pleural effusion. I have personally reviewed the images and I agree with this report. WSN: [id number] Ordering Physician: Lacy Winkler Dictated By: Caty Prado MD Dictated Date/Time: 10/30/23 3:29 pm Reviewed By: Dennis Terrazas MD, V Signed By: Dennis Terrazas MD, V Signed Date/Time: 10/30/23 3:34 pm Transcribed By: CHERELLE Transcribed Date/Time: 10/30/23 1:19 pm * Exam Date Time Procedure Performing Provider Status 10/28/23 10:59 AM Chest Portable Vito Marie (Verified) Notes: (Chest Portable) Reason For Exam: Shortness of Breath RESULT: Chest Portable Chest Portable Reason: Shortness of Breath; Clinical Question(s): Pleural Effusion COMPARISON: 10/24/2023. Study is limited because patient has not taken a proper inspiration. FINDINGS: LINES AND TUBES: A nasogastric tube is in place. It is seen entering the stomach. The distal end is not on the film. LUNGS AND PLEURA: The retrocardiac area on the left is opaque, as it was previously.. This is presumably secondary toatelectasis and left pleural effusion. There is a right basilar atelectasis. The normal markings inthe right lung are crowded together due to the poor inspiratory effort and elevated right hemidiaphragm. No pneumothorax. HEART, MEDIASTINUM AND KWAKU: Heart size is difficult to assess due to the limitations of the film and the opaque left lung base. BONES AND SOFT TISSUES: No acute abnormality. IMPRESSION: No real improvement since the previous exam. Persistently abnormal left lung base. Atelectasis in the right lung base. WSN: [id number] Ordering Physician: Lacy Winkler Dictated By: Francisco Javier Tavares MD Dictated Date/Time: 10/28/23 11:16 a Reviewed By: Francisco Javier Tavares MD Signed By: Francisco Javier Tavares MD Signed Date/Time: 10/28/23 11:16 am Transcribed By: CHERELLE Transcribed Date/Time: 10/28/23 11:12 am * Exam Date Time Procedure Performing Provider Status 10/25/23 10:00 AM Abdomen AP Jimmy Seema; Auth ( Verified) Notes: (Abdomen AP) Reason For Exam: obstruction;Other: RESULT: XR Abdomen AP XR Abdomen AP 1 view INDICATION/CLINICAL QUESTION: Reason: obstruction; Clinical Question(s): Obstruction COMPARISON: 10/24/2023 FINDINGS: Slight interval advancement of enteric tube which is now with side port at the level of the mid stomach and tip at the distal stomach towards the pylorus. Resolution of previously seen air-filled dilated loops of bowel in the right lower quadrant. Moderate colonic stool burden in the proximal colon with air and stool present throughout the colon to therectum. Similar minimal scoliotic curvature of the lower lumbar spine. No acute osseous change. Burger catheter with temperature probe projects at the level of the midline lower pelvis. Arterial vascular atherosclerosis. IMPRESSION: Resolution of previously seen gaseous distention of small bowel in the right lower quadrant. Nonobstructed bowel gas pattern. WSN: [id number] Ordering Physician: Vinayak Grigsby Dictated By: Kera Diaz MD Dictated Date/Time: 10/25/23 10:42 a Reviewed By: Kera Diaz MD Signed By: Kera Diaz MD Signed Date/Time: 10/25/23 10:42 am Transcribed By: CHERELLE Transcribed Date/Time: 10/25/23 10:41 am * Exam Date Time Procedure Performing Provider Status 10/24/23 9:58 PM Chest Portable Morgan , Raymond; Auth (Heather ified) Notes: (Chest Portable) Reason For Exam: confirm placement of NG tube;Line Placement RESULT: Chest Portable Chest Portable performed AP upright at 9:37 PM INDICATION: Line placement. COMPARISON: Same day radiograph performed AP upright at 8:19 AM. FINDINGS: LINES AND TUBES: Enteric tube courses below the level of the diaphragm towards the stomach with side-port overlying the stomach and tip below the field of view. LUNGS AND PLEURA: Low lung volumes. Retrocardiac opacities are again seen. Small left pleural effusion, similar in size to prior. No pneumothorax. HEART, MEDIASTINUM AND KWAKU: Unchanged. BONES AND SOFT TISSUES: No acute abnormality. IMPRESSION: Enteric tube course below the level of the diaphragm towards the stomach with side-port overlying the stomach and tip below the field of view. No significant change in the retrocardiac opacities and small left pleural effusion. I have personally reviewed the images and I agree with this report. WSN: [id number] Ordering Physician: Lashell Anderson Dictated By: Juan José Wilkins MD Dictated Date/Time: 10/24/23 10:29 p Reviewed By: Darell Al MD Signed By: Darell Al MD Signed Date/Time: 10/24/23 10:34 pm Transcribed By: CHERELLE Transcribed Date/Time: 10/24/23 10:27 pm * Exam Date Time Procedure Performing Provider Status 10/24/23 6:13 PM Abdomen Comp Inc Dec ub and/or Erect Harris Welch; Elina (Verified) Notes: (Abdomen Comp Inc Decub and/or Erect) Reason For Exam: Nausea/Vomiting RESULT: Abdomen Comp Inc Decub and/or Erect Abdomen Comp Inc Decub and/or Erect 2 view INDICATION/CLINICAL QUESTION: Reason: Nausea Vomiting; Clinical Question(s): Obstruction; Order Comment: WILLIE Rizvi is unable to transport pt at this time. Will call us when pt can come down to get xrays done. ALB 10 24 2023 11:26:34 EST COMPARISON: 03/10/2023. FINDINGS: There are mildly prominent air filled loops of large bowel measuring up to 6.7 cm in diameter. There is no evidence of bowel obstruction. No evidence of pneumoperitoneum. There is an enteric tube with its tip in the in the left abdomen. There is a tubular structure in the pelvis at midline likely representing a bladder catheter. No acute bone findings. Mildly prominent air-filled large bowel loops without evidence of bowel obstruction. IMPRESSION: Normal. WSN: [id number] Ordering Physician: Radha, Meche Dictated By: Vita Narvaez MD Dictated Date/Time: 10/24/23 7:07 pm Reviewed By: Vita Narvaez MD Signed By: Vita Narvaez MD Signed Date/Time: 10/24/23 7:07 pm Transcribed By: CHERELLE Transcribed Date/Time: 10/24/23 7:01 pm * Exam Date Time Procedure Performing Provider Status 10/24/23 8:25 AM Chest Portable Anna Mauricio; Auth ( Verified) Notes: (Chest Portable) Reason For Exam: Line Placement RESULT: Chest Portable Chest Portable Reason: Line Placement; Clinical Question(s): Tube Placement; Special Instructions: NGT placement COMPARISON: 10/23/2023 FINDINGS: LINES AND TUBES: Enteric tube curls in the stomach and then continues distally with tip in the expected area of the distal stomach and side port of the gastric body. LUNGS AND PLEURA: Low lung volumes. Small left pleural effusion. Mild perihilar vascular congestion . Retrocardiac opacities likely atelectasis. No pneumothorax. HEART, MEDIASTINUM AND KWAKU: Heart is normal in size. Aortic arch atherosclerosis BONES AND SOFT TISSUES: No acute abnormality. Nonobstructed partially seen bowel gas pattern with air and stool seen in the colon. IMPRESSION: Enteric tube curls in the stomach with side-port and tip projecting at the level of the stomach. Small left pleural effusion. Findings of mild pulmonary edema. Low lung volumes and retrocardiac and basilar atelectasis. WSN: [id number] Ordering Physician: Moe Muir Dictated By: Kera Diaz MD Dictated Date/Time: 10/24/23 10:52 a Reviewed By: Kera Diaz MD Signed By: Kera Diaz MD Signed Date/Time: 10/24/23 10:52 am Transcribed By: CHERELLE Transcribed Date/Time: 10/24/23 10:51 am * Exam Date Time Procedure Performing Provider Status 10/23/23 6:[address] Abd/Pelvis W/ IV Contrast Only Ridgeley n Swapna; Auth (Verified) Notes: (CT Abd/Pelvis W/ IV Contrast Only) Reason For Exam: distension;Other: RESULT: CT Abd/Pelvis W/ IV Contrast Only CT Chest W/ Contrast, CT Abd/Pelvis W/ IV Contrast Only Reason: Hypothermia, emesis, AMS, desat; Clinical Question(s): Interstitial Alveolar Infiltration TECHNIQUE: Helical CT scan of the chest, abdomen, and pelvis with IV contrast, formatted in 3 planes. 75 cc of Omnipaque 300 was administered intravenously. This study was performed without oral contrast. Weight-based protocol was performed using automatic exposure control. CTDIvol Body: 12.60 mGy, DLP Body: 951 mGy*cm. COMPARISON: CT chest/abdomen/pelvis-08/10/2023. FINDINGS: Maritime Officer view findings, lines and tubes: None. Trachea and airways: Patent without evidence of tracheal or endobronchial lesion. Lungs and pleura: Extensive consolidation in the left upper lobe. Small amount of consolidation in the left upper lobe and right lung base. Mediastinum and kwaku: No mass or hematoma. No mediastinal or hilar lymphadenopathy. Mild distal esophageal wall thickening. Normal thyroid. Heart: Moderate cardiomegaly, unchanged. No pericardial effusion. Moderate coronary artery calcification. Aorta: Mild vascular calcification but no aneurysm. Pulmonary arteries: Normal caliber. No evidence [...] No nodule. Kidneys and ureters: No hydronephrosis suspicious lesion. Unchanged nonobstructing 0.3 cm calculus at the mid pole of the right kidney (201:109). Unchanged 1.2 cm hyperattenuating lesion within the midpole of the right kidney. Simple appearing renal cysts and hypodensities that are too small to brittany acterize are noted, requiring no dedicated follow up. Bladder: Decompressed with Burger catheter in place, limiting evaluation. Reproductive organs: Unremarkable. Stomach, small bowel, and large bowel: Left abdominal small bowel loops demonstrate mild distentionand air-fluid levels. Distal small bowel loops are relatively decompressed. Mild colonic diverticulosis without evidence of acute diverticulitis. Appendix: Normal appendix. Peritoneum and retroperitoneum: No ascites or pneumoperitoneum. No omental or mesenteric lesions. Lymph nodes: No pathologically enlarged lymph nodes. Few prominent lymph nodes measuring up to 0.7 cm (201:145). Additionally, there is a prominent lymph node measuring up to 0.5 cm with internal calcification (201:163). Blood vessels: Moderate-severe atherosclerotic vascular calcification. No aortic aneurysm. No evidence of venous thrombosis. Abdominal and pelvic wall soft tissues: No acute abnormality. Bones: No acute osseous abnormality. Multilevel degenerative changes of the spine. Inferior endplate depression of L4, chronic. IMPRESSION: 1. Multifocal consolidation concerning for pneumonia. 2. Small hyperattenuating lesion at the interpolar region of the right kidney is unchanged from 08/10/2023. Further characterization can be performed with ultrasound or renal lesion CT/MR. 3. Mildly distended small bowel loops with air-fluid levels with relatively decompressed distal small bowel loops. Depending on clinical setting, this can be seen with an enteritis or a low-grade early bowel obstruction.Clinically correlate. I have personally reviewed the images and I agree with this report. WSN: [id number] Ordering Physician: Peña Isbell Dictated By: Ramin Ho MD Dictated Date/Time: 10/23/23 8:19 pm Reviewed By: Darell Al MD Signed By: Darell Al MD Signed Date/Time: 10/23/23 8:24 pm Transcribed By: CHERELLE Transcribed Date/Time: 10/23/23 7:56 pm * Exam Date Time Procedure Performing Provider Status 10/23/23 6:[address] Chest W/ Contrast Colon , Swapna; Auth (Verified) Notes: (CT Chest W/ Contrast) Reason For Exam: AMS, desat;Other: RESULT: CT Chest W/ Contrast CT Chest W/ Contrast, CT Abd/Pelvis W/ IV Contrast Only Reason: Hypothermia, emesis, AMS, desat; Clinical Question(s): Interstitial Alveolar Infiltration TECHNIQUE: Helical CT scan of the chest, abdomen, and pelvis with IV contrast, formatted in 3 planes. 75 cc of Omnipaque 300 was administered intravenously. This study was performed without oral contrast. Weight-based protocol was performed using automatic exposure control. CTDIvol Body: 12.60 mGy, DLP Body: 951 mGy*cm. COMPARISON: CT chest/abdomen/pelvis-08/10/2023. FINDINGS: Maritime Officer view findings, lines and tubes: None. Trachea and airways: Patent without evidence of tracheal or endobronchial lesion. Lungs and pleura: Extensive consolidation in the left upper lobe. Small amount of consolidation in the left upper lobe and right lung base. Mediastinum and kwaku: No mass or hematoma. No mediastinal or hilar lymphadenopathy. Mild distal esophageal wall thickening. Normal thyroid. Heart: Moderate cardiomegaly, unchanged. No pericardial effusion. Moderate coronary artery calcification. Aorta: Mild vascular calcification but no aneurysm. Pulmonary arteries: Normal caliber. No evidence [...] No nodule. Kidneys and ureters: No hydronephrosis suspicious lesion. Unchanged nonobstructing 0.3 cm calculus at the mid pole of the right kidney (201:109). Unchanged 1.2 cm hyperattenuating lesion within the midpole of the right kidney. Simple appearing renal cysts and hypodensities that are too small to brittany acterize are noted, requiring no dedicated follow up. Bladder: Decompressed with Burger catheter in place, limiting evaluation. Reproductive organs: Unremarkable. Stomach, small bowel, and large bowel: Left abdominal small bowel loops demonstrate mild distentionand air-fluid levels. Distal small bowel loops are relatively decompressed. Mild colonic diverticulosis without evidence of acute diverticulitis. Appendix: Normal appendix. Peritoneum and retroperitoneum: No ascites or pneumoperitoneum. No omental or mesenteric lesions. Lymph nodes: No pathologically enlarged lymph nodes. Few prominent lymph nodes measuring up to 0.7 cm (201:145). Additionally, there is a prominent lymph node measuring up to 0.5 cm with internal calcification (201:163). Blood vessels: Moderate-severe atherosclerotic vascular calcification. No aortic aneurysm. No evidence of venous thrombosis. Abdominal and pelvic wall soft tissues: No acute abnormality. Bones: No acute osseous abnormality. Multilevel degenerative changes of the spine. Inferior endplate depression of L4, chronic. IMPRESSION: 1. Multifocal consolidation concerning for pneumonia. 2. Small hyperattenuating lesion at the interpolar region of the right kidney is unchanged from 08/10/2023. Further characterization can be performed with ultrasound or renal lesion CT/MR. 3. Mildly distended small bowel loops with air-fluid levels with relatively decompressed distal small bowel loops. Depending on clinical setting, this can be seen with an enteritis or a low-grade early bowel obstruction.Clinically correlate. I have personally reviewed the images and I agree with this report. WSN: [id number] Ordering Physician: Peña Isbell Dictated By: Ramin Ho MD Dictated Date/Time: 10/23/23 8:19 pm Reviewed By: Darell Al MD Signed By: Darell Al MD Signed Date/Time: 10/23/23 8:24 pm Transcribed By: CHERELLE Transcribed Date/Time: 10/23/23 7:56 pm * Exam Date Time Procedure Performing Provider Status 10/23/23 6:[address] Head/Brain W/O Contrast Colon , Tat chiqui; Auth (Verified) Notes: (CT Head/Brain W/O Contrast) Reason For Exam: ams;Otorrhea RESULT: CT Head/Brain W/O Contrast CT Head/Brain W/O Contrast INDICATION: Hx of Present Illness: pt BIBEMS from snf with CO hypothermia. pt actively vomiting large amount upon arrival. rectal temp of 90.7.; Reason: Otorrhea; ams; Clinical Question(s): Other: TECHNIQUE: Noncontrast head CT using axial technique and reconstructed in axial and coronal planes.Iterative reconstruction techniques are used to optimize dose and image quality. CTDIvol Head: 46.30 mGy, DLP Head: 773 mGy*cm. COMPARISON: None. FINDINGS: Maritime Officer view findings, lines and tubes: None. BRAIN AND EXTRA-AXIAL SPACES: No parenchymal hemorrhage, midline shift, or mass effect. Zapata-white matter differentiation is wellpreserved. No acute infarct. Ventricles, sulci, and basilar cisterns are normal. Mild low-density white matter changes. There are old bilateral basal ganglia acute infarct. No subarachnoid hemorrhage. No subdural or epidural collection. CALVARIUM, SKULL BASE, AND SOFT TISSUES: No fractures or suspicious bony lesions. The paranasal sinuses and mastoid air cells are clear. Visualized orbits and globes are intact. The extracranial soft tissues are unremarkable. IMPRESSION: No acute intracranial pathology. Mild chronic small vessel ischemic changes. Old bilateral basal ganglia lacunar infarcts. WSN: [id number] Ordering Physician: Peña Isbell Dictated By: Ossiani MDAyan Dictated Date/Time: 10/23/23 6:21 pm Reviewed By: Ayan Khanna MD Signed By: Ayan Khanna MD Signed Date/Time: 10/23/23 6:21 pm Transcribed By: CHERELLE Transcribed Date/Time: 10/23/23 6:13 pm * Exam Date Time Procedure Performing Provider Status 10/23/23 1:37 PM Chest Portable Simpson , Kenji; Auth (V erified) Notes: (Chest Portable) Reason For Exam: hypox;Other: RESULT: Chest Portable AP semiupright portable chest dated October 23, 2023 at 1332 hours. Comparison films are from September 03, 2023. HISTORY: Hypoxia. FINDINGS: Today's study is limited as the chin obscures the apices. The cardiac silhouette is increased in size and unchanged from the previous study. Mural calcifications are noted in the aorta. Increased attenuation is present at the lung bases right slightly greater than left consistent with atelectasis or pneumonia and associated pleural effusions. Degenerative changes are noted in the spine. IMPRESSION: Bibasilar atelectasis or pneumonia and associated pleural effusions. This represents significant improvement in aeration on the left and new infiltrate on the right. Examination 97186. Thank you for allowing me to participate in the care of this patient. WSN: [id number] Ordering Physician: Peña Isbell Dictated By: Canelo Guzman MD Dictated Date/Time: 10/23/23 1:40 pm Reviewed By: Canelo Guzman MD Signed By: Canelo Guzman MD Signed Date/Time: 10/23/23 1:40 pm Transcribed By: CHERELLE Transcribed Date/Time: 10/23/23 1:38 pm Vital Signs Most recent to oldest [Reference Range]: 1 2 3 Height 188 cm (11/03/23 5:22 AM) 188 cm (11/03/23 1:51 AM) 188 cm (11/02/23 8:20 PM) Weight 89.2 kg (10/24/23 1:58 AM) Oxygen Saturation [94-100 %] 100 % (11/04/23 8:00 PM) 98 % (11/04/23 3:00 PM) 98 % (11/04/23 7:00 AM) Pulse Rate [55-90 bpm] 68 bpm (11/04/23 8:00 PM) 65 bpm (11/04/23 3:00 PM) 54 bpm *L* (11/04/23 7:00 AM) Body Mass Index [18.5-24.99 kg/m2] 25.24 kg/m2 *H* (10/24/23 1:58 AM) Blood Pressure [90-138/55-84 mm Hg] 150/67mm Hg *H* (11/04/23 8:00 PM) 140/64mm Hg *H* (11/04/23 3:00 PM) 128/62mm Hg (11/04/23 7:00 AM) Respiratory Rate [16-30 br/min] 18 br/min (11/04/23 8:00 PM) 20 br/min (11/04/23 3:00 PM) 19 br/min (11/04/23 7:00 AM) Temperature [96.8-100.4 DegF] 97.4 DegF (11/05/23 4:00 AM) 97.6 DegF (11/04/23 8:00 PM) 98 DegF (11/04/23 3:00 PM) Liters per Minute 2 L/min (10/29/23 7:00 PM) 2 L/min (10/29/23 3:00 PM) 2 L/min (10/29/23 11:00 AM) Mode of Delivery (Oxygen) Room air (11/04/23 8:00 PM) Room air (11/04/23 3:00 PM) Room air (11/04/23 7:00 AM) Blood pressure sites Arm, left (11/04/23 8:00 PM) Arm, right (11/04/23 3:00 AM) Arm, right (11/04/23 12:00 AM) Temperature Route Oral (11/05/23 4:00 AM) Axillary (11/04/23 8:00 PM) Oral (11/04/23 3:00 PM) Dry Weight 89.2 kg (10/24/23 1:58 AM) Admission evaluation note * Ya Brady MD: PERFORM, MODIFY, MODIFY, MODIFY, MODIFY, MODIFY, MODIFY, MODIFY, MODIFY, MODIFY, MODIFY, MODIFY, MODIFY, MODIFY, MODIFY, MODIFY, MODIFY, MODIFY, MODIFY, MODIFY Event Display: Admission Note Authored Date: [id number] Patient: ??ARGENTINA GARRETT ? Age:??73 Years?Sex:??Male?:??1950?? Chief Complaint/Reason for Consultation Hypothermia History of Present Illness Mr. 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 There is limited history from patient's nursing home as he was sent with no documentation and nursing home was unreachableat time of admission.?? Unclear reason for initially calling EMS, likely emesis and low temps at nursing home. With EMS, patient was hypoxic to 87% on room air, arrived to ED on nonrebreather.?? On initial arrival, patient was hypothermic to 90.7 rectal placed in Tasha hugger, BP 94/46, saturating 92%on 10 L nonrebreather.?? Labs notable for WBC 12.8, Hb 10.3, platelets 145, normal electrolytes, BUN 60, creatinine 3.6.?? Lactate trend 3.2 -> 1.6. HSTnT 27. TSH 4.29 (high), free T4 1.33 (normal).?? COVID/flu/RSV negative.?? Urinalysis bland.?? ECG with sinus bradycardia, QTc 465, no acute ischemic changes. Shortly after arrival, he had a very large episode of NBNB emesis.?? Treated with IV Zofran.?? He had one more much smaller episode of NBNB emesis a couple hours later, no recurrent episodes since then.?? Non-con CT head showing old bilateral basal ganglia lacunar infarcts, no acute intracranial process.?? CT chest/abd/pelvis with contrast showed multifocal consolidations consistentwith pneumonia; also showing mildly distended small bowel loops with air-fluid levels suggestive ofenteritis versus low-grade early bowel obstruction; also small hyperattenuating lesion at the rightkidney unchanged since August 2023. ?? Patient received IV vancomycin 1250 mg and Zosyn 3.375 g at 1:30 PM when he arrived to the ED as a resusc (these meds are documented only on the resusc sheet, not in [facility], but verified with multiple ED providers that he did receive).?? He was also??administered??IV Keppra 2000 mg??after he had an epi sode of??decreased responsiveness and ?abnormal eye movements. ?? On my arrival, patient was sleeping under the Tasha hugger.?? He easily woke up, did not give verbal responses but follows simple commands (close eyes, thumbs up). Review of Systems General: No pain, subjective fevers or chills HEENT: No congestion, rhinorrhea, sore throat Cardio: No chest pain, palpitations Resp: No SOB or cough GI: No abdominal pain, nausea, vomiting, diarrhea, or??constipation : No urinary retention or dysuria Neuro: No headache, weakness, LOC, or dizziness?? Objective ? Vital Signs?? Temperature:??95.6 DegF??Low (10/23/23 23:45:00) Temperature Route: Rectal (10/23/23 23:45:00) Pulse Rate: 71 bpm (10/23/23 23:45:00) Respiratory Rate: 18 br/min (10/23/23 23:45:00) Systolic Blood Pressure: 112 mm Hg (10/23/23 23:45:00) Diastolic Blood Pressure: 55 mm Hg (10/23/23 23:45:00) Mean Arterial Pressure: 62 mm Hg (10/23/23 13:56:00) Pulse Pressure: 57 mm Hg (10/23/23 23:45:00) Oxygen Saturation: 98 % (10/23/23 23:45:00) Liters per Minute: 4 L/min (10/23/23 23:45:00) Mode of Delivery (Oxygen): Nasal cannula (10/23/23 23:45:00) FiO2: 40 % (10/23/23 17:35:00) Early Warning Score: 5 (10/23/23 23:52:56) ? Physical Exam General: Sleepy but arousable, NAD, no verbal responses. Mental Status:??Unable to assess HEENT:??Normocephalic. PERRL, EOMI. MMM. Neck supple. Respiratory:??Normal work of breathing. Coarse rhonchi scattered throughout, no wheezes or crackles. Cardiovascular: RRR, normal S1 and S2. No murmur. No lower extremity edema. Brisk cap refill distally. Gastrointestinal:??Hypoactive bowel sounds.?? Abdomen soft, mildly distended, no apparent pain withdeep palpation. No masses. Neurologic:??Limited assessment due to cognitive status. Subtle Left facial droop. Moving both arms, Left hemiplegia noted. Squeezes with both hands weakly. Not moving legs much. Skin:??No rashes, lesions or ecchymoses?? Extremities:??No gross deformities. Assessment/Plan Diagnoses PELON (acute kidney injury) ??(N17.9) Acute hypoxic respiratory failure ??(J96.01) Anemia of chronic disease ??(D63.8) Atrial fibrillation ??(I48.91) CKD (chronic kidney disease), stage IV ??(N18.4) Cognitive impairment ??(R41.89) Dysphagia ??(R13.10) Emesis ??(R11.10) Enteritis ??(K52.9) Hypotension ??(I95.9) Hypothermia ??(T68.XXXA) Multifocal pneumonia ??(J18.9) Reflux esophagitis ??(K21.00) Schizophrenia ??(F20.9) Seizure disorder ??(G40.909) Sepsis ??(A41.9) ?? 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 Remains hypothermic on Tasha hugger, admitted to [facility]. ?? Severe sepsis 2/2 bilateral pneumonia vs enteritis Acute hypoxic respiratory failure 2/2 bilateral multifocal PNA Hypothermia Hypotension - improving Lactic acidosis - resolved On arrival: hypotensive to 94/46, hypothermic, leukocytosis, lactic acidosis. Likely infectious sources: multifocal pneumonia, distended small bowel loops c/f enteritis. Pt received IV vancomycin 1250 mg and Zosyn 3.375 mg on 10/23 1:30 PM (not in [facility], confirmed with EDteam that doses were given during resusc). Got a dose of cefepime before this was clarified. Will continue to cover for aspiration vs healthcare-associated PNA (recent admission, coming from facility). This regimen will also cover most intra- abdominal pathologies given c/f enteritis. Pt was persistently hypothermic in his last admission. Prior team worked up for AI - low AM cortisol level (7.6) but normal Cosyntropin stim test. ?? Plan: - Continue Vancomycin 1250 mg Q48 hrs (next 10/25), Zosyn 3.375 mg Q12 hrs. Discussed renal dosing with pharmacy. Rec next dose Zosyn tomorrow AM given add'l dose cefepime in ED. - MRSA swab ordered, DC vancomycin if negative - Legionella urinary antigen. Will hold azithromycin for now - Tasha ektagger, target temp >96 F - AM cortisol level ordered, consider stress dose steroids if persistently hypotensive and hypothermic - mIVF at 75/hr. Repeat bolus if recurrently hypotensive (EF 55-60% in Nov) -??Continue LFNC to maintain O2 >92% ?? NBNB large-volume emesis 2/2 enteritis vs SBO Recent UGIB 2/[address] abd with distended small bowel loops with air-fluid levels concerning for??enteritis versus??low-grade early bowel obstruction. Abdomen is mildly distended, no apparent pain on exam. Surgery consulted from ED - reviewed images, not concerned for SB obstruction, no surgery indicated. Moderate stool burden noted. Following arrival to [facility], patient??had another episode of large-volume NBNB emesis. ?? Plan: - NPO, NGT for decompression. Reassess in AM to see if appropriate to administer meds through NGT, otherwise will need to convert to IV meds - General surgery following, will reassess pt in AM, appreciate guidance on diet advancement - Antibiotics as above, Zosyn will cover most intra-abdominal??anaerobes - Home pantoprazole 40 mg PO BID, needs repeat EGD in ~4 weeks as per last admit recs - Bowel regimen to avoid constipation which may contribute to distension, emesis. STEPHANIE Miralax and home lactulose for now. ?? PELON on CKD IV Recent BL ~2.6-3. Cr 3.6 on admission. Likely septic/ischemic ATN and hypovolemia. Can expect renal function to worsen further after contrast administration 10/23. ?? Plan: - Daily BMP - Consider renal consult pending course - Renally dose all meds ?? Seizure Disorder ([phone]): Concern for seizure episode in the ED described as??decreased responsiveness and??fluttering eye movements. He received 2 g IV Keppra in the ED.?? At home he is on??p.o. Keppra to 25 mg twice daily ?? Plan: - Discussed with pharmacy - will??skip AM Keppra dose??given??supratherapeutic dose in ED for renalfxn. Resume tomorrow evening, 250 mg PO BID - Neuro checks Q4 - Seizure precautions ? BPH: Discharged in September with Burger, which remains??in place. Continue home finasteride and tamsulosin. Attempt voiding trial once stable. ? History of CVA with residual deficit (I69.30), Cognitive impairment (R41.89): Reportedly nonverbal at baseline. Left facial droop noted, present previously according to old documentation.??Did not reach facility to clarify recent baseline. Neuro checks as above ? Chronic, stable, resolved medical conditions Chronic??obstructive pulmonary??disease??(J44.9):??Duonebs PRN Schizophrenia (F20.9):??Continue home meds including benztropine, Risperidone, and olanzapine Hypothyroidism (E03.9):??Continue levothyroxine Hypertension (I10):??Hold home amlodipine d/t hypotension CHF (congestive heart failure) (I50.9), Coronary artery disease (I25.10):?? Hold home Imdur d/t hypotension Paroxysmal atrial fibrillation (I48.0):??Continue Eliquis 5 mg BID. Confirmed with pharmacy that 5 mg is appropriate despite renal fxn. Type 2 Diabetes mellitus??(E11.9):??Not on long-acting insulin. Lispro SS, POCG TID + bedtime, hypoglycemia measures. A1c added on. Right kidney lesion: small hyperattenuating lesion at the interpolar region of the right kidney is unchanged from 08/10/2023. Further characterization can be performed with ultrasound or renal lesion CT/MR. ? Quality Measures VTE Prophlylaxis: Home Eliquis Code Status: Full code. Based on last admission documentation. No MOLST on file and could not reachfacility. Diet: Clear liquids, advance as tolerated to pureed with thins OMN:??IV antibiotics and close monitoring for severe sepsis ? Ya Brady MD Med-Peds PGY-3 P. [id number] or??[facility] ?? This patient was seen and discussed with attending physician, Dr. Quevedo Histories Allergies Allergies ?(Active and Proposed Allergies Only) NKA? (Severity: Unknown severity, Onset: Unknown) ? Past Medical History/Problem List Active Problems??(16) Anemia of chronic disease Atrial fibrillation CHF (congestive heart failure) Chronic obstructive pulmonary disease Cognitive impairment Coronary artery disease Dementia Dysphagia GERD (gastroesophageal reflux disease) History of CVA with residual deficit Hypertension Hypothyroidism Schizophrenia Seizure disorder Stage III chronic kidney disease Type 2 diabetes mellitus ? Past Surgical History No surgery history documented. ? Social History No social history documented. ? Family History No family history recorded. ? Medications Home Medications Acetaminophen (acetaminophen 325 mg oral tablet)?650?Milligram?2?tablet?By Mouth?Every 8 hours?as needed?pain/fever >101F Amlodipine (amLODIPine 10 [...] (thiamine 100 mg oral tablet)?100?Milligram?By Mouth?Daily ? Results Recent Labs BLOOD BANK Blood Type O Positive ()?? 10/23/2023 13:20 Antibody Screen Negative ()?? 10/23/2023 13:20 ?? BLOOD COUNT & DIFF WBC 12.8 k/mm3 (High)?? 10/23/2023 13:29 RBC 3.68 m/mm3 (Low)?? 10/23/2023 13:29 Hgb 10.3 Gm/dL (Low)?? 10/23/2023 13:29 Hct 32.2 % (Low)?? 10/23/2023 13:29 MCV 87.5 femtoliters ()?? 10/23/2023 13:29 MCH 28.0 pg ()?? 10/23/2023 13:29 MCHC 32.0 g/dL (Low)?? 10/23/2023 13:29 Platelet Count 145 k/mm3 (Low)?? 10/23/2023 13:29 RDW-SD 54.7 femtoliters (High)?? 10/23/2023 13:29 MPV 10.8 femtoliters ()?? 10/23/2023 13:29 Nucleated RBC (Automated) 0.6 #/100 WBC'S ()?? 10/23/2023 13:29 Abs. NRBC 0.1 k/mm3 ()?? 10/23/2023 13:29 Abs. Neut 9.7 k/mm3 (High)?? 10/23/2023 13:29 Abs. Lymph 2.0 k/mm3 ()?? 10/23/2023 13:29 Abs. [place] 1.0 k/mm3 ()?? 10/23/2023 13:29 Abs. Eo 0.1 k/mm3 ()?? 10/23/2023 13:29 Abs. Baso 0.0 k/mm3 ()?? 10/23/2023 13:29 Neut % 75.5 % ()?? 10/23/2023 13:29 Lymph % 15.6 % ()?? 10/23/2023 13:29 [place] % 7.4 % ()?? 10/23/2023 13:29 Eos % 0.4 % ()?? 10/23/2023 13:29 Baso % 0.2 % ()?? 10/23/2023 13:29 Hemoglobin (POC) POC Cartridge 11.2 Gm/dL (Low)?? 10/23/2023 13:28 Hematocrit (POC) POC Cartridge 33 % (Low)?? 10/23/2023 13:28 Imm Gran 0.9 % ()?? 10/23/2023 13:29 Abs. Imm Gran 0.1 k/mm3 ()?? 10/23/2023 13:29 ?? BLOOD GAS pH Venous (POC) POC Cartridge 7.38 ()?? 10/23/2023 13:28 pCO2 Venous (POC) POC Cartridge 45.9 mm Hg ()?? 10/23/2023 13:28 pO2 Venous (POC) POC Cartridge 35 mm Hg ()?? 10/23/2023 13:28 Est Bicarbonate (POC) POC Cartridge 26.8 mmol/L ()?? 10/23/2023 13:28 % O2 Sat Venous (POC) POC Cartridge 65 ()?? 10/23/2023 13:28 Base Excess (POC) POC Cartridge 2 ()?? 10/23/2023 13:28 Specimen Type - Blood Gas VENOUS ()?? 10/23/2023 13:28 ?? CARDIAC Nt-Probnp 263 pg/mL ()?? 10/23/2023 13:29 High Sensitivity Troponin (HSTnT) 27 ng/L (High)?? 10/23/2023 16:21 ?? CHEM GENERAL Sodium 142 mmol/L ()?? 10/23/2023 17:11 Potassium 4.8 mmol/L ()?? 10/23/2023 17:11 Chloride 102 mmol/L ()?? 10/23/2023 17:11 Bicarbonate Level 25 mmol/L ()?? 10/23/2023 17:11 Anion Gap 15 ()?? 10/23/2023 17:11 Sodium (POC) POC Cartridge 138 mmol/L ()?? 10/23/2023 13:28 Potassium (POC) POC Cartridge 5.1 mmol/L ()?? 10/23/2023 13:28 Glucose Level 163 mg/dL (High)?? 10/23/2023 17:11 Glucose (POC) POC Cartridge 167 (High)?? 10/23/2023 13:28 BUN 62 mg/dL (High)?? 10/23/2023 17:11 Creatinine-Blood 3.6 mg/dL (High)?? 10/23/2023 17:11 Estimated GFR Creatinine 17 ML/MIN/1.73 M2 ()?? 10/23/2023 17:11 Calcium 9.4 mg/dL ()?? 10/23/2023 17:11 Ionized Calcium (POC) POC Cartridge 1.18 mmol/L ()?? 10/23/2023 13:28 Protein, Total 7.5 Gm/dL ()?? 10/23/2023 17:11 Albumin 3.7 Gm/dL ()?? 10/23/2023 17:11 AG Ratio 1.0 ()?? 10/23/2023 17:11 Alkaline Phosphatase 241 units/L (High)?? 10/23/2023 17:11 Lipase 14 units/L ()?? 10/23/2023 17:11 AST (SGOT) 18 units/L ()?? 10/23/2023 17:11 ALT (SGPT) 17 units/L ()?? 10/23/2023 17:11 Bilirubin, Total 0.3 mg/dL ()?? 10/23/2023 17:11 Lactate 1.6 mmol/L ()?? 10/23/2023 16:21 ?? ENDOCRINE/TUMOR MARKER TSH 4.29 uIU/mL (High)?? 10/23/2023 13:29 Free T4 1.33 ng/dL ()?? 10/23/2023 13:29 ?? MISC. CHEMISTRY Procalcitonin 0.16 ng/mL ()?? 10/23/2023 13:29 ?? UA/URINALYSIS Appear/Color, Urine YELLOW ()?? 10/23/2023 19:54 Specific [place], Urine 1.023 ()?? 10/23/2023 19:54 pH, Urine 8.5 (High)?? 10/23/2023 19:54 Albumin, Urine 3+ (Abnormal)?? 10/23/2023 19:54 Glucose, Urine NEGATIVE ()?? 10/23/2023 19:54 Ketones, Urine NEGATIVE ()?? 10/23/2023 19:54 Bilirubin, Urine NEGATIVE ()?? 10/23/2023 19:54 Hemoglobin, Urine NEGATIVE ()?? 10/23/2023 19:54 Nitrite, Urine NEGATIVE ()?? 10/23/2023 19:54 Leukocyte, Urine 2+ (Abnormal)?? 10/23/2023 19:54 Urobilinogen NORMAL mg/dL ()?? 10/23/2023 19:54 WBC's, Urine 2 /HPF ()?? 10/23/2023 19:54 RBC's, Urine NONE SEEN /HPF ()?? 10/23/2023 19:54 Squamous Epith <1 /HPF ()?? 10/23/2023 19:54 Uric Acid Crystals SLIGHT /HPF ()?? 10/23/2023 19:54 Mucus SLIGHT /LPF ()?? 10/23/2023 19:54 Hold Urine Culture Testing available 48 hours from time of collection. ()?? 10/23/2023 19:54 ?? VIROLOGY Influenza A PCR NEGATIVE ()?? 10/23/2023 13:32 Influenza B PCR NEGATIVE ()?? 10/23/2023 13:32 RSV PCR NEGATIVE ()?? 10/23/2023 13:32 COVID-19 PCR Specimen Source NASAL ()?? 10/23/2023 13:32 COVID-19 PCR Result NEGATIVE ()?? 10/23/2023 13:32 ? Microbiology ?? COVID-19, RSV, and Flu A/B, Rapid PCR?? Completed?? Source: Nasopharyngeal Body Site: Nasopharyngeal Collected Dt/Tm: 10/23/2023 13:18 Last Updated Dt/Tm: 10/23/2023 15:09 ? * Emy PRADO, Alanna Osei: PERFORM Event Display: Admission Note Authored Date: [id number] Attending attestation.??Patient seen and examined on Oct 24. Reviewed HPI, ROS. I have independently examined the patient, confirmed physical exam findings and developed the plan with the resident. Agree with assessment and plan that as outlined in Dr. Brady's note. ?? 73-year-old man with history of CVA with left-sided residual weakness, cognitive impairment, schizophrenia, paroxysmal A-fib, CAD, hypertension, hyperlipidemia, COPD, peripheral artery disease, type 2 diabetes, CKD stage IV, seizure disorder who presents from [facility] [place] for evaluation of hypothermia. While he was being transferred by EMS, was noted to have profuse nonbilious nonbloody emesis for which she was given IV Zofran. Vital signs in the emergency room notable for rectal temperature of 90.7, blood pressure 94/46. O2 sats 92% on 10 L via nonrebreather. Labs notable for white cell count of 12.8, no left shift. Hemoglobin 10.3, hematocrit 32.2, platelet count 145. Electrolytes within normal limits. BUN 62, creatinine 3.6, alkaline phosphatase 241. Lactate 3.2 followed by 1.6. High-sensitivity troponin 27. Influenza A/B/RSV/COVID-19 PCR was negative. Urinalysis with 8.5 urine pH, 3+ albumin, 2+ leukocyte, 2 WBCs. Blood cultures were drawn and he was given 1 dose each of IV vancomycin, IV Zosyn, cefepime, 2 g of Keppra in the ER. He was also given Zofran, LR bolus 500cc x 2 in the emergency room. ?? Severe sepsis likely secondary to pneumonia though enteritis is the differential. Acute hypoxic respiratory failure likely secondary to pneumonia - most likely aspiration given thathe was vomiting. Continue broad spectrum antibiotics and de-escalate depending on response, cultureresults. * Emy PRADO, Alanna Osei: PERFORM Event Display: Admission Note Authored Date: CT abd-pelvis from Oct 23 also noted incidental finding - Small hyperattenuating lesion at the interpolar region of the right kidney is unchanged from 08/10/2023. Further characterization can be performed with ultrasound or renal lesion CT/MR as outpatient EKG study * Event Display: ECG 12-Lead Authored Date: Please click on pdf link to open report * Event Display: ECG 12-Lead Authored Date: Ventricular Rate: 83 BPM Atrial Rate: 83 BPM P-R Interval: 176 ms QRS Duration: 84 ms Q-T Interval: 368 ms QTC Calculation(Bazett): 432 ms P [place]: 72 degrees R [place]: 60 degrees T [place]: 43 degrees Normal sinus rhythm Normal ECG When compared with ECG of 26-OCT-2023 12:17, MANUAL COMPARISON REQUIRED, DATA IS UNCONFIRMED Confirmed by ERMELINDA HYATT MD ([id number]) on 10/28/2023 12:06:39 PM [place]: ERMELINDA HYATT MD * Event Display: ECG 12-Lead Authored Date: Please click on pdf link to open report * Event Display: ECG 12-Lead Authored Date: Ventricular Rate: 46 BPM Atrial Rate: 46 BPM P-R Interval: 192 ms QRS Duration: 88 ms Q-T Interval: 428 ms QTC Calculation(Bazett): 374 ms P [place]: 41 degrees R [place]: 13 degrees T [place]: 37 degrees Sinus bradycardia with marked sinus arrhythmia Otherwise normal ECG When compared with ECG of 23-OCT-2023 13:29, No significant change was found Confirmed by YENNIFER LANG MD ([id number]) on 11/01/2023 11:21:26 AM [place]: YENNIFER LANG MD * Event Display: ECG 12-Lead Authored Date: Please click on pdf link to open report * Event Display: ECG 12-Lead Authored Date: Ventricular Rate: 58 BPM Atrial Rate: 58 BPM P-R Interval: 192 ms QRS Duration: 88 ms Q-T Interval: 474 ms QTC Calculation(Bazett): 465 ms P [place]: 44 degrees R [place]: 1 degrees T [place]: 54 degrees Sinus bradycardia Minimal voltage criteria for LVH, may be normal variant ( R in aVL ) Nonspecific T wave abnormality Prolonged QT Abnormal ECG When compared with ECG of 03-SEP-2023 10:31, Premature atrial complexes are no longer Present T wave amplitude has increased in Anterior leads QT has lengthened Confirmed by ERMELINDA HYATT MD ([id number]) on 10/28/2023 9:17:37 AM [place]: ERMELINDA HYATT MD Cardiology * Event Display: Cardiac Rhythm Strips Authored Date: Hospital Progress note * Nakia Abraham RN: PERFORM, SIGN, VERIFY Event Display: Progress Note Hospital Authored Date: Patient: ARGENTINA GARRETT Age: 73 years Sex: Male : 1950 Associated Diagnoses: None Author: Nakia Abraham RN Findings Evaluation Patient d/c with ems to [facility]. Patient left with all belongings. Facility was updated on patient coming back to them and report was given. . Discharge Information Case Management Discharge Plan : Case Management Discharge Plan Data 11/05/2023 12:57 EST Discharge Level of Care at Discharge correction facility Discharge Nursing Homes/Rehab Facilities [facility] [phone] 11/04/2023 9:59 EST Discharge Level of Care at Discharge correction facility Discharge Nursing Homes/Rehab Facilities [facility] [phone] Discharge Transportation Arranged [facility] [address] [facility] [phone] Discharge Arranged Transport Date/Time 11/04/2023 12:00 Mode of Transportation Arranged Ambulance Agency [facility]1 admissions Service Categories #1 Occupational Therapy, Physical Therapy, Snf, Advanced Practice Professional * Juan Pablo Monteiro RN: PERFORM, SIGN, VERIFY Event Display: Progress Note Hospital Authored Date: Patient: ARGENTINA GARRETT Age: 73 years Sex: Male : 1950 Associated Diagnoses: None Author: Juan Pablo Monteiro RN Findings Evaluation Patient A&Ox1, confused. Does not always cooperative w/ care. Planning for d/c today, 11/04. No acute changes.. * Michael Montano DO T: PERFORM Event Display: Progress Note Hospital Authored Date: Patient: ??ARGENTINA GARRETT ? Age:??73 Years?Sex:??Male?:??1950?? Subjective Overnight events: None ?? Today: Patient is resting comfortably in bed.?? He is slightly more engaging in conversation.?? He is willing to take his medications this morning.?? We will attempt to reach his daughter to discuss goals and placement. Review of Systems All systems reviewed and negative except for as mentioned above. Objective Vital Signs?? Temperature: 97.6 DegF (11/03/23 12:00:00) Temperature Route: Axillary (11/03/23 12:00:00) Normothermic Measures: Tasha hugger off (11/02/23 20:00:00) Pulse Rate:??44 bpm??Low (11/03/23 12:00:00) Heart Rate Monitored: 56 bpm (11/02/23 20:00:00) Respiratory Rate: 18 br/min (11/03/23 12:00:00) Systolic Blood Pressure: 123 mm Hg (11/03/23 12:00:00) Diastolic Blood Pressure: 64 mm Hg (11/03/23 12:00:00) Blood pressure sites: Arm, left (11/03/23 12:00:00) Mean Arterial Pressure: 103 mm Hg (11/03/23 05:22:00) Pulse Pressure: 59 mm Hg (11/03/23 12:00:00) Oxygen Saturation: 97 % (11/03/23 12:00:00) Mode of Delivery (Oxygen): Room air (11/03/23 12:00:00) Early Warning Score: 3 (11/03/23 12:14:38) ? Intake/Output? 10/23 21:36 11/03 07:00 11/02 07:00 11/01 07:00 10/31 07:00 ?? 11/03 12:43 11/03 12:43 11/03 06:59 11/02 06:59 11/01 06:59 Intake ?77138 ? 60 ? 1830 ? 2165 ? 2652.5 Output ?32677 ? 1900 ? 1900 ? 1450 ? 2675 Net Total ?-4690 ?-1840 ?-70 ?715 ?-22.5 ? Physical Exam General Appearance: The patient is??in NAD.?? Head: atraumatic EENT: MMM Cardiovascular: RRR S1 and S2 heard with no M/R/G Respiratory: ??Breath sounds clear to auscultation bilaterally anteriorly. GI: Soft. Nontender and nondistended. Normal bowel sounds present throughout abdomen.?? MS:?no LE edema or erythema. 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 Psych: Unable to assess Lines: Peripheral IV in place.?? _ Inpatient Medications Medications (27) Active SCHEDULED: (18) Apixaban 5 mg Tablet (apixaban 5 mg oral tablet) ??5 mg, By Mouth, 2 times a day Atorvastatin 20 mg Tablet (atorvastatin 20 mg [...] extended release) ??30 mg, By Mouth, Daily Lactulose 20 Gm/30mL Syrup (lactulose 10 gm/15 ml oral syrup) ??20 Gm 30 mL, By Mouth, Daily Levetiracetam 250 mg Tablet (Keppra 250 mg oral tablet) ??250 mg, By Mouth, 2 times a day Levothyroxine 100 mcg Tablet (Synthroid 0.1 mg oral tablet) ??100 mcg, By Mouth, Daily NaCl 0.9% Flush 3ml (NaCL 0.9% Flush) ??3 mL, IV Push, Every 8 hours Olanzapine 5 mg Tablet (olanzapine 5 mg oral tablet) ??5 mg, By Mouth, Daily at bedtime Pantoprazole 40 mg EC Tablet (pantoprazole 40 mg oral delayed release tablet) ??40 mg, By Mouth, Daily Polyethylene Glycol 17 Gm Powder (MiraLax Powder) ??17 Gm 1 pack/packet, By Mouth, Daily Risperidone 1 mg Tablet (risperiDONE 1 mg oral tablet) ??2 mg, By Mouth, 2 times a day Senna Tablet (Senna 8.6 mg oral tablet) ??17.2 mg 2 tablet, By Mouth, Daily Tamsulosin 0.4 mg Capsule (tamsulosin 0.4 mg oral capsule) ??0.8 mg, By Mouth, Daily at bedtime Thiamine 100 mg Tablet (thiamine 100 mg oral tablet) ??100 mg, By Mouth, Daily CONTINUOUS: (0) PRN: (9) Acetaminophen 325 mg Tablet (Acetaminophen Tablet) ??650 mg, By Mouth, Every 4 hours Albuterol/Ipratropium Inhalation Manju 3mL (Duoneb Inhalation Solution) ??1 vials, BAND Nebulizer, Every 4 hours Bisacodyl 10 mg Suppository (Bisacodyl Supp) ??10 mg 1 supp, Rectally, Every 72 hours Dextrose Inj Syringe (Dextrose 50% Inj Syringe (25Gm)) ??12.5 Gm, IV Push Slowly, Every 20 minutes Dextrose Inj Syringe (Dextrose 50% Inj Syringe (25Gm)) ??25 Gm, IV Push Slowly, Every 15 minutes Glucagon 1 mg Inj (Glucagon Inj) ??1 mg, Intramuscular, Once Glucose 40% Gel (15 Gm) (Glucose Gel) ??15 Gm, By Mouth, Every 20 minutes Glucose 40% Gel (15 Gm) (Glucose Gel) ??30 Gm, By Mouth, Every 20 minutes Ondansetron 2mg/mL Inj (2mL Vial) (Ondansetron Inj) ??4 mg, IV Push, Every 6 hours ? Results Recent Labs CHEM GENERAL Glucose, POC 163 mg/dL (High)?? 11/03/2023 12:10 ? Assessment/Plan 73-year-old male with history of CVA, left-sided facial droop and left-sided hemiplegia and slurredspeech, seizure disorder, proximal A-fib on Eliquis, CKD stage IV, type 2 diabetes, hypertension, COPD, hypothyroidism, GERD, recent upper GI bleed September 2023 presents from his nursing home the setting of emesis and hypothermia, concern for seizure on presentation to emergency room, with acute hypoxic respiratory failure, found to have multifocal pneumonia as well as findings on CT scan concerning for small bowel obstruction versus enteritis. Patient with improved temperature regulation while on Tasha hugger, NG tube now removed and patient tolerating dysphagia diet. Also weaned to RA. Urinary Cx growing Proteus resistant to ampicillin, nitrofurantoin and Bactrim, s/p 5 day course of IV CTX. Neurology recommending increased Keppra dosage, no need for VEEG. 10/30 pt. again with altered mental status, likely in setting of uremia 2/2 to PELON. Patient transferred [facility] to [facility] due to continued hypothermia. Symptoms resolved and patient is appropriate for acute care on 11/02/2023. ?? Acute respiratory failure with hypoxia (J96.01) secondary to Multifocal pneumonia (J18.9)-resolved?? Severe sepsis (A41.9) secondary Urinary tract infection in male (N39.0)-resolved On arrival: hypotensive to 94/46, hypothermic, leukocytosis, lactic acidosis. Patient was hypothermic, requiring higher level care. CT scan performed the emergency room revealing multifocal pneumonia, nutritional findings concerning for small bowel obstruction versus enteritis. Likely patient became septic in the setting of aspiration pneumonia from enteritis. Chest x-ray after NG tube placement did not have a concern for bowel obstruction. Urinary Cx growing Proteus resistant to ampicillin, nitrofurantoin and Bactrim. Urine Strep and Legionella negative. S/p 5 day CTX course. ?? Plan: ? - Monitor for signs of infection ?? Enteritis (K52.9) with concern for Small bowel obstruction (K56.609)-resolved Chronic constipation (K59.09) At presentation: CT abd with distended small bowel loops with air-fluid levels concerning for enteritis versus low-grade early bowel obstruction. Abdomen mildly distended, no apparent pain on exam.Surgery consulted from ED - reviewed images, not concerned for SB obstruction, no surgery indicated. Moderate stool burden noted. Following arrival to [facility], patient had another episode of large-volume NBNB emesis. Status post decompression with NG tube, reassuring repeat KUB without signs of obstructive pattern. NGT removed. Pt. constipation improved. BM 10/31. Surgery recs appreciated. ?? Plan: ? - Continue bowel regimen ? - Protonix 40 mg PO??QD ?? 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 recommended dysphagia 2 diet with thin liquids Pt. NPO on 10/30 d/t encephalopathy. Improved on 10/31 & diet resumed. ?? Plan: ? - Continue Dysphagia level 2 diet w/ thin liquids. 1:1 feeds and aspiration precautions. ?? Seizure disorder (G40.909) Metabolic encephalopathy (G93.41)-resolved 10/30 pt. was lethargic presumed in the setting of uremia related to PELON. Improved mental status on 11/01.?? Unclear if related to improved??PELON versus??higher dosing of Keppra. Pt's mental status at baseline 11/02. ?? Plan: ? - Transition to Keppra 250 mg PO QD ?? Hypothermia (T68.XXXA) Autonomic instability (G90.9) Pt. w/ intermittent hypothermia <96F. He likely has autonomic instability in the setting of previous CVA and age. No worsening respiratory status, to suggest recurrent aspiration or new developingPNA. No urinary symptoms to suggest UTI. Abdomen soft. No diarrhea. Skin w/o evidence of erythema or swelling to suggest infection. A.m. cortisol normal at 19.7. ?? Plan: ? - Goal temp 96 or greater ? - Continue to monitor for other clinical signs of infection. ?? Acute renal failure superimposed on stage 4 chronic kidney disease, unspecified acute renal failuretype (N17.9) Chronic kidney disease, stage 4 (severe) (N18.4) Recent BL ~2.6-3. Cr 3.6 on admission. Likely septic/ischemic ATN and hypovolemia. Can expect renalfunction to worsen further after contrast administration 10/23. Was downtrending, likely in the setting of p.o. intake/IV fluids. Back to baseline of 3 on 10/29. Jumped from 3 to 3.7 on 10/30, likely 2/2 to dehydration as patient was getting oral diet. 3.5 10/31 s/p IVF. Continues to downtrend the setting of IV fluids. ?? Plan: ? - Daily BMP ? - Renally dose all meds, avoid nephrotoxins ? - D/C IVF 75cc/hr ?? BPH with urinary obstruction (N40.1) Discharged in September with Burger. Continue home finasteride and tamsulosin.?? Voiding trial attempted on 10/31.?? However, patient failed this and Burger needed to be replaced on 10/31.? Plan: ? - Recommend outpatient follow-up with urology. ?? Chronic Stable Medical Conditions: Esophagitis (K20.90)/History of gastrointestinal hemorrhage (Z87.19)/Anemia of chronic disease (D63.8):??Home pantoprazole 40 mg PO BID, needs repeat EGD in ~4 weeks as per last admit recs Cognitive impairment (R41.89)/History of CVA with residual deficit (I69.30):?Reportedly nonverbal at baseline. Left facial droop noted, present previously according to old documentation. Neuro checks as above. At baseline mental status. Atrial fibrillation (I48.91):??Currently in NSR. Continue eliquis. Chronic obstructive pulmonary disease (J44.9):??Resp. status stable. No evidence of acute exacerbation. Duonebs PRN Chronic diastolic heart failure (I50.32):??Euvolemic. No evidence of decompensation at this time. Imdur held in the setting of hypotension at admission. Renal lesion (N28.9):??small hyperattenuating lesion at the interpolar region of the right kidney is unchanged from 08/10/2023. Further characterization can be performed with ultrasound or renal lesion CT/MR. Type??2 diabetes mellitus (E11.9):??Not on long-acting insulin. Lispro SS, POC TID with meals. A1c 7.5 Hypothyroidism (E03.9):??Continue levothyroxine Schizophrenia (F20.9):??Continue home meds including benztropine, Risperidone, and olanzapine ?? Quality Measures Diet: Dysphagia Access: Peripheral IV Anticoagulation: Eliquis Code status: FULL CODE OMN: Need to get in contact with daughter to discuss goals and placement options. Have been unable to reach at number provided. ?? Patient seen and discussed with the attending physician, Dr. Mckeon. Michael Montano, DO Internal Medicine Resident Pager #[phone] ?? This note was dictated??by [employer] voice detection software,??for any errors??or clarifications, please do not hesitate to reach out for clarifications.? * Ken Mckeon MD: PERFORM Event Display: Progress Note Hospital Authored Date: [id number] Attending Attestation (Ken Mckeon M.D.) 73-year-old man with history of CVA with residual left-sided hemiplegia, seizure disorder, paroxysmal atrial fibrillation, CKD 4, insulin dependent type 2 diabetes presented with emesis and hypothermia status post NG tube concern for small bowel obstruction versus enteritis course complicated by PELON and metabolic encephalopathy. ? Diagnoses: Delirium on dementia with behavioral issues ??Hypothermia ??Type 2 diabetes causing CKD4 ??Insulin-dependent type 2 diabetes ??Seizure disorder ??Residual left-sided hemiplegia status post CVA ??Atrial fibrillation ??Schizophrenia ??Peripheral arterial disease ?? Vitals reviewed and significant for Hypertension and otherwise unremarkable. Labwork reviewed and significant for HYPERGLYCEMIA ?? Assessment: Off tasha hugger maintaining core temperature. ??Behavior has improved as he is no longer refusing medications. ?? Plan: ??? Plan for discharge 11/04 given seemingly back to baseline ?? Ongoing Medical Necessity:?? Placement ?? Quality Measures: CODE STATUS: FULL CODE DVT Prophylaxis: Apixaban Disposition: LTC ?? I evaluated the patient on date of service 11/03/2023. I saw and evaluated this patient with Dr. Durand and agree with the resident???s findings and plan of care as documented by the resident or edited by me. I spent??35??minutes on the following:??preparing to see the patient (eg, review of tests), obtaining and/or reviewing separately obtained history, performing a medically appropriate examination and/or evaluation and counseling and educating the patient/family/caregiver ?? Level of Medical Decision Making (MDM):??Moderate Number and Complexity of Problems Addressed: 1 or more chronic illnesses with exacerbation, progression, or side effects of treatment Amount and/or Complexity of Data to be Reviewed and Analyzed Category 1: Tests and documents Review of prior external note(s) from each unique source Review of the result(s) of each unique test ?I personally reviewed the external nursing records. ?I personally reviewed the following tests: BG Risk of Complications and/or Morbidity or Mortality of Patient Management:??Moderate risk of morbidity from additional diagnostic testing or treatment Prescription drug management Note * Nakia Abraham RN: PERFORM Event Display: Discharge/Transfer Note Hospital Authored Date: [id number] Nursing Discharge Note Entered On: 11/05/2023 12:58 EST Performed On: 11/05/2023 12:57 EST by Nakia Abraham RN Nursing Discharge Note 2 Discharge Time : 11/05/2023 12:56 EST Discharge Level of Care at Discharge : correction facility Discharge Nursing Homes/Rehab Facilities : [facility] [phone] Patient Left Unit Via : Ambulance Patient Accompanied Off Unit with : Ambulance/Chair Van Personnel Handover Given to Transport Personnel : Yes DC Instructions Provided & Signed by Pt : Yes Patient Understands D/C Instructions : Yes Patient Instructions Discharge Signed : Yes Did Pt have Specialty Bed or Wound Vac : No Nakia Abraham RN - 11/05/2023 12:57 EST * Michael Montano DO: MODIFY, PERFORM Event Display: Discharge/Transfer Note Hospital Authored Date: [id number] Patient: ??ARGENTINA GARRETT ? Age:??73 Years?Sex:??Male?:??1950?? Patient Information Discharge Location: [facility] Primary Care Physician: Mark Arredondo MD Admit Date/Time: 10/23/23 21:36 Discharge Date: 11/06/2023 Discharge Disposition Discharge Disposition: Snf Facility/Rehab Discharge Diagnosis Severe sepsis (A41.9) Acute respiratory failure with hypoxia (J96.01) Multifocal pneumonia (J18.9) Urinary tract infection in male (N39.0) Small bowel obstruction (K56.609) Enteritis (K52.9) Chronic constipation (K59.09) Acute renal failure superimposed on stage 4 chronic kidney disease, unspecified acute renal failuretype (N17.9) Chronic kidney disease, stage 4 (severe) (N18.4) Dysphagia (R13.10) Seizure disorder (G40.909) Autonomic instability (G90.9) BPH with urinary obstruction (N40.1) Esophagitis (K20.90) History of gastrointestinal hemorrhage (Z87.19) Hypothermia (T68.XXXA) Anemia of chronic disease (D63.8) History of CVA with residual deficit (I69.30) Cognitive impairment (R41.89) Chronic obstructive pulmonary disease (J44.9) Chronic diastolic heart failure (I50.32) Atrial fibrillation (I48.91) Renal lesion (N28.9) Type 2 diabetes mellitus (E11.9) PELON (acute kidney injury) (N17.9) Acute hypoxic respiratory failure (J96.01) CKD (chronic kidney disease), stage IV (N18.4) Emesis (R11.10) Hypotension (I95.9) Hypothyroidism (E03.9) Metabolic encephalopathy (G93.41) Reflux esophagitis (K21.00) Schizophrenia (F20.9) Sepsis (A41.9) ?? _ Discharge Medications Acetaminophen (acetaminophen 325 mg oral tablet)?650?Milligram?2?tablet?By Mouth?Every 8 hours?as needed?pain/fever >101F Amlodipine (amLODIPine 10 [...] mg oral tablet)?100?Milligram?By Mouth?Daily ? Medications Started None Medications Discontinued None Doses Changed None PCP Follow-Up/Heads-Up Patient was seen for??sepsis secondary to pneumonia.?? He is status post 5 days of ceftriaxone.?? He was evaluated by neurology and??his Keppra dose was increased??during the active infection.?? Please follow-up with patient about??signs symptoms of infection. Please check BMP in one week and have p atient follow with urology for BPH. Future Appointments Thursday 3:30 PM EDT ?? Where: [facility] Status: Pending Hospital Course [place] is a 73-year-old male with history of CVA, left-sided facial droop and left-sided hemiplegia and residual nonverbal status, seizure disorder, chronic impairment, proximal A-fib on Eliquis, CKD stage IV, type 2 diabetes, hypertension, COPD, hypothyroidism, GERD, recent upper GI bleed September 2023 presents from his nursing home the setting of emesis and hypothermia, concern for seizure on presentation to emergency room, with acute hypoxic respiratory failure, found to have multifocal pneumonia as well as findings on CT scan concerning for small bowel obstruction versus enteritis; now believed to more likely enteritis as patient had reassuring repeat imaging and abdominal exams. Patient with improved temperature regulation while on Tasha hugger, NG tube now removed and patient toleratingdysphagia diet. Also weaned to RA. Urinary Cx growing Proteus resistant to ampicillin, nitrofurantoin and Bactrim, s/p 5 day course of IV ceftriaxone. Neurology was consulted for intermittent hypothermia and AMS concerning for post-ictal state, recommending increase patient's home Keppra dose temporarily while getting antibiotics and patient had improved mental status. ? Objective Assessment and Plan Acute respiratory failure with hypoxia (J96.01) secondary to Multifocal pneumonia (J18.9)-resolved?? Severe sepsis (A41.9) secondary Urinary tract infection in male (N39.0)-resolved On arrival: hypotensive to 94/46, hypothermic, leukocytosis, lactic acidosis. Patient was hypothermic, requiring higher level care. CT scan performed the emergency room revealing multifocal pneumonia, nutritional findings concerning for small bowel obstruction versus enteritis. Likely patient became septic in the setting of aspiration pneumonia from enteritis. Chest x-ray after NG tube placement did not have a concern for bowel obstruction. Urinary Cx growing Proteus resistant to ampicillin, nitrofurantoin and Bactrim. Urine Strep and Legionella negative. S/p 5 day CTX course. ?? Recommendations: ? - Monitor for signs of infection ?? Enteritis (K52.9) with concern for Small bowel obstruction (K56.609)-resolved Chronic constipation (K59.09) At presentation: CT abd with distended small bowel loops with air-fluid levels concerning for enteritis versus low-grade early bowel obstruction. Abdomen mildly distended, no apparent pain on exam.Surgery consulted from ED - reviewed images, not concerned for SB obstruction, no surgery indicated. Moderate stool burden noted. Following arrival to [facility], patient had another episode of large-volume NBNB emesis. Status post decompression with NG tube, reassuring repeat KUB without signs of obstructive pattern. NGT removed. Pt. constipation improved. BM 10/31. Surgery recs appreciated. ?? Recommendations: ? - Continue bowel regimen ? - Protonix 40 mg PO??QD ?? 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 recommended dysphagia 2 diet with thin liquids Pt. NPO on 10/30 d/t encephalopathy. Improved on 10/31 & diet resumed. ?? Recommendations: ? -??Aspiration precautions per facility ?? Seizure disorder (G40.909) Metabolic encephalopathy (G93.41)-resolved 10/30 pt. was lethargic presumed in the setting of uremia related to PELON. Improved mental status on 11/01.?? Unclear if related to improved??PELON versus??higher dosing of Keppra. Pt's mental status at baseline 11/02. ?? Recommendations: ? -??Continue Keppra 250 mg PO QD ?? Hypothermia (T68.XXXA) Autonomic instability (G90.9) Pt. w/ intermittent hypothermia <96F. He likely has autonomic instability in the setting of previous CVA and age. No worsening respiratory status, to suggest recurrent aspiration or new developingPNA. No urinary symptoms to suggest UTI. Abdomen soft. No diarrhea. Skin w/o evidence of erythema or swelling to suggest infection. A.m. cortisol normal at 19.7. ?? Recommendations: ? - Continue to monitor for other clinical signs of infection. ?? Acute renal failure superimposed on stage 4 chronic kidney disease, unspecified acute renal failuretype (N17.9) Chronic kidney disease, stage 4 (severe) (N18.4) Recent BL ~2.6-3. Cr 3.6 on admission. Likely septic/ischemic ATN and hypovolemia. Can expect renalfunction to worsen further after contrast administration 10/23. Was downtrending, likely in the setting of p.o. intake/IV fluids. Back to baseline of 3 on 10/29. Jumped from 3 to 3.7 on 10/30, likely 2/2 to dehydration as patient was getting oral diet. 3.5 10/31 s/p IVF. Continues to downtrend the setting of IV fluids. ?? Recommendations: ? - BMP in 1 week ?? BPH with urinary obstruction (N40.1) Discharged in September with Burger. Continue home finasteride and tamsulosin.?? Voiding trial attempted on 10/31.?? However, patient failed this and Burger needed to be replaced on 10/31.? Recommendations: ? - Recommend outpatient follow-up with urology. ?? Chronic Stable Medical Conditions: Esophagitis (K20.90)/History of gastrointestinal hemorrhage (Z87.19)/Anemia of chronic disease (D63.8):??Home pantoprazole 40 mg PO BID, needs repeat EGD in ~4 weeks as per last admit recs Cognitive impairment (R41.89)/History of CVA with residual deficit (I69.30):?Reportedly nonverbal at baseline. Left facial droop noted, present previously according to old documentation. Neuro checks as above. At baseline mental status. Atrial fibrillation (I48.91):??Currently in NSR. Continue eliquis. Chronic obstructive pulmonary disease (J44.9):??Resp. status stable. No evidence of acute exacerbation. Duonebs PRN Chronic diastolic heart failure (I50.32):??Euvolemic. No evidence of decompensation at this time. Imdur held in the setting of hypotension at admission. Renal lesion (N28.9):??small hyperattenuating lesion at the interpolar region of the right kidney is unchanged from 08/10/2023. Further characterization can be performed with ultrasound or renal lesion CT/MR. Type??2 diabetes mellitus (E11.9):??Not on long-acting insulin. Lispro SS, POC TID with meals. A1c 7.5 Hypothyroidism (E03.9):??Continue levothyroxine Schizophrenia (F20.9):??Continue home meds including benztropine, Risperidone, and olanzapine ? Vital Signs?? Temperature: 97.4 DegF (11/05/23 04:00:00) Temperature Route: Oral (11/05/23 04:00:00) Pulse Rate: 68 bpm (11/04/23 20:00:00) Respiratory Rate: 18 br/min (11/04/23 20:00:00) Systolic Blood Pressure:??150 mm Hg??High (11/04/23 20:00:00) Diastolic Blood Pressure: 67 mm Hg (11/04/23 20:00:00) Blood pressure sites: Arm, left (11/04/23 20:00:00) Pulse Pressure: 83 mm Hg (11/04/23 20:00:00) Oxygen Saturation: 100 % (11/04/23 20:00:00) Mode of Delivery (Oxygen): Room air (11/04/23 20:00:00) Early Warning Score: 2 (11/05/23 04:01:33) ? . Physical Exam General Appearance: The patient is??in NAD.?? Head: atraumatic EENT: MMM Cardiovascular: RRR S1 and S2 heard with no M/R/G Respiratory: ??Breath sounds clear to auscultation bilaterally anteriorly. GI: Soft. Nontender and nondistended. Normal bowel sounds present throughout abdomen.?? MS:?no LE edema or erythema. 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 Psych: Unable to assess Lines: Peripheral IV in place.?? Consultants Neurology Pending Results Add On Lab Order ordered on 10/23/2023 Add On Lab Order ordered on 10/23/2023 Add On Lab Order ordered on 10/24/2023 Basic Metabolic Panel ordered on 11/02/2023 Blood Gas Arterial ordered on 11/04/2023 CBC ordered on 11/02/2023 Creatinine ordered on 11/02/2023 Patient Education Titles Viral Gastroenteritis (Adult)?? Zones Viral Gastroenteritis?? Stroke: Tips for Swallowing?? Urinary Tract Infections in Men?? Zones UTI?? Chest and Lung Problems?? Follow-Up Appointments Added Follow Up ?Time Frame ?Comments Mark Arredondo MD?1-2 day: call to discuss follow up visit Patient Instructions DIAGNOSIS / RESULTS / PROCEDURES (what was done): You were found to have??a lung infection (pneumonia) and urinary tract infection.?? Based on results on the??CT scan done in the ED, there was initial concern you may have??had a bowel obstruction which is why you couldn't eat. This seemed??to resolve and likely you didn't one but??instead??had??a stomach bug. We??think you vomited from the??stomach bug??and accidentally aspirated??on it??which??caused the infection.?UTIs can cause fever, vomiting, and fatigue; people sometimes complain of burning when they urinate, or blood in their urine. We treated both your UTI and pneumonia with antibiotics and you got better. Because of the infections we were concerned you were having seizures heremaking you more confused, so neurology recommended increasing your home seizure medicine dose whileyou were getting antibiotics and you did better. We also removed your Burger after the antibiotics and you were able to urinate well.? INSTRUCTIONS (what you need to do): Make sure you are drinking plenty of fluids; if you have any pain please take Tylenol as to not harm your kidneys.?? Please follow up with your PCP in 1-3 days.? Come back to the emergency department if you are not able to drink??any fluids, have a lot??of vomiting a lot, feel disoriented or confused, or if?? you have any other major concerns. ?? MEDICATIONS (what you need to take):?? Please continue to take all your home medicines as prescribed. Although we did increase the Keppra dosing temporarily while here, you can take your regular medication. We did not start, stop or change any medicines.?? Post Discharge Care Discharge Prescriptions ?None, 11/04/23 11:11:00 EST Home Health Face to Face ^[facility] Results Discharge Labs BACTERIOLOGY MRSA PCR Result Negative, MRSA target DNA not detected. ()?? 10/25/2023 00:30 S Aureus ??PCR Result Negative, SA target DNA not detected. ()?? 10/25/2023 00:30 ?? BLOOD BANK Blood Type O Positive ()?? 10/23/2023 13:20 Antibody Screen Negative ()?? 10/23/2023 13:20 ?? BLOOD COUNT & DIFF WBC 7.7 k/mm3 ()?? 11/04/2023 12:31 RBC 2.97 m/mm3 (Low)?? 11/04/2023 12:31 Hgb 8.4 Gm/dL (Low)?? 11/04/2023 12:31 Hct 26.5 % (Low)?? 11/04/2023 12:31 MCV 89.2 femtoliters ()?? 11/04/2023 12:31 MCH 28.3 pg ()?? 11/04/2023 12:31 MCHC 31.7 g/dL (Low)?? 11/04/2023 12:31 Platelet Count 236 k/mm3 ()?? 11/04/2023 12:31 RDW-SD 53.3 femtoliters (High)?? 11/04/2023 12:31 MPV 9.6 femtoliters ()?? 11/04/2023 12:31 Nucleated RBC (Automated) 0.0 #/100 WBC'S ()?? 11/04/2023 12:31 Abs. NRBC 0.0 k/mm3 ()?? 11/04/2023 12:31 Abs. Neut 5.2 k/mm3 ()?? 10/26/2023 05:50 Abs. Lymph 2.1 k/mm3 ()?? 10/26/2023 05:50 Abs. [place] 0.9 k/mm3 ()?? 10/26/2023 05:50 Abs. Eo 0.1 k/mm3 ()?? 10/26/2023 05:50 Abs. Baso 0.0 k/mm3 ()?? 10/26/2023 05:50 Neut % 61.6 % ()?? 10/26/2023 05:50 Lymph % 24.8 % ()?? 10/26/2023 05:50 [place] % 10.1 % ()?? 10/26/2023 05:50 Eos % 1.2 % ()?? 10/26/2023 05:50 Baso % 0.4 % ()?? 10/26/2023 05:50 Hemoglobin (POC) POC Cartridge 11.2 Gm/dL (Low)?? 10/23/2023 13:28 Hematocrit (POC) POC Cartridge 33 % (Low)?? 10/23/2023 13:28 Imm Gran 1.9 % ()?? 10/26/2023 05:50 Abs. Imm Gran 0.2 k/mm3 ()?? 10/26/2023 05:50 ?? BLOOD GAS pH Venous (POC) POC Cartridge 7.38 ()?? 10/23/2023 13:28 pCO2 Venous (POC) POC Cartridge 45.9 mm Hg ()?? 10/23/2023 13:28 pO2 Venous (POC) POC Cartridge 35 mm Hg ()?? 10/23/2023 13:28 Est Bicarbonate (POC) POC Cartridge 26.8 mmol/L ()?? 10/23/2023 13:28 % O2 Sat Venous (POC) POC Cartridge 65 ()?? 10/23/2023 13:28 Base Excess (POC) POC Cartridge 2 ()?? 10/23/2023 13:28 pH 7.39 ()?? 10/28/2023 11:04 pCO2 51 mm Hg (High)?? 10/28/2023 11:04 pO2 66 mm Hg (Low)?? 10/28/2023 11:04 Bicarbonate, Estimated 30 mmol/L (High)?? 10/28/2023 11:04 Specimen Type - Blood Gas ARTERIAL ()?? 10/28/2023 11:04 Percent O2 (FIO2) 32 ()?? 10/28/2023 11:04 ?? CARDIAC Nt-Probnp 263 pg/mL ()?? 10/23/2023 13:29 High Sensitivity Troponin (HSTnT) 27 ng/L (High)?? 10/23/2023 16:21 ?? CHEM GENERAL Sodium 140 mmol/L ()?? 11/04/2023 12:34 Potassium 4.3 mmol/L ()?? 11/04/2023 12:34 Chloride 103 mmol/L ()?? 11/04/2023 12:34 Bicarbonate Level 28 mmol/L ()?? 11/04/2023 12:34 Anion Gap 9 ()?? 11/04/2023 12:34 Sodium (POC) POC Cartridge 138 mmol/L ()?? 10/23/2023 13:28 Potassium (POC) POC Cartridge 5.1 mmol/L ()?? 10/23/2023 13:28 Glucose Level 143 mg/dL (High)?? 11/04/2023 12:34 Glucose (POC) POC Cartridge 167 (High)?? 10/23/2023 13:28 Glucose, POC 167 mg/dL (High)?? 11/05/2023 01:40 Hemoglobin A1C (Monitoring) 7.5 % (High)?? 10/23/2023 13:29 BUN 28 mg/dL (High)?? 11/04/2023 12:34 Creatinine-Blood 3.1 mg/dL (High)?? 11/04/2023 12:34 Estimated GFR Creatinine 20 ML/MIN/1.73 M2 ()?? 11/04/2023 12:34 Calcium 9.1 mg/dL ()?? 11/04/2023 12:34 Ionized Calcium (POC) POC Cartridge 1.18 mmol/L ()?? 10/23/2023 13:28 Phosphorus 4.0 mg/dL ()?? 10/31/2023 02:36 Magnesium 2.2 mg/dL ()?? 11/01/2023 03:38 Protein, Total 7.5 Gm/dL ()?? 10/23/2023 17:11 Albumin 3.7 Gm/dL ()?? 10/23/2023 17:11 AG Ratio 1.0 ()?? 10/23/2023 17:11 Alkaline Phosphatase 241 units/L (High)?? 10/23/2023 17:11 Lipase 14 units/L ()?? 10/23/2023 17:11 AST (SGOT) 18 units/L ()?? 10/23/2023 17:11 ALT (SGPT) 17 units/L ()?? 10/23/2023 17:11 Bilirubin, Total 0.3 mg/dL ()?? 10/23/2023 17:11 Lactate 1.6 mmol/L ()?? 10/23/2023 16:21 ? ENDOCRINE/TUMOR MARKER TSH 4.29 uIU/mL (High)?? 10/23/2023 13:29 Free T4 1.33 ng/dL ()?? 10/23/2023 13:29 Cortisol Level 19.6 ??g/dL ()?? 10/24/2023 05:07 ? MISC. CHEMISTRY Procalcitonin 0.16 ng/mL ()?? 10/23/2023 13:29 ? UA/URINALYSIS Appear/Color, Urine YELLOW ()?? 10/23/2023 19:54 Specific [place], Urine 1.023 ()?? 10/23/2023 19:54 pH, Urine 8.5 (High)?? 10/23/2023 19:54 Albumin, Urine 3+ (Abnormal)?? 10/23/2023 19:54 Glucose, Urine NEGATIVE ()?? 10/23/2023 19:54 Ketones, Urine NEGATIVE ()?? 10/23/2023 19:54 Bilirubin, Urine NEGATIVE ()?? 10/23/2023 19:54 Hemoglobin, Urine NEGATIVE ()?? 10/23/2023 19:54 Nitrite, Urine NEGATIVE ()?? 10/23/2023 19:54 Leukocyte, Urine 2+ (Abnormal)?? 10/23/2023 19:54 Urobilinogen NORMAL mg/dL ()?? 10/23/2023 19:54 WBC's, Urine 2 /HPF ()?? 10/23/2023 19:54 RBC's, Urine NONE SEEN /HPF ()?? 10/23/2023 19:54 Squamous Epith <1 /HPF ()?? 10/23/2023 19:54 Uric Acid Crystals SLIGHT /HPF ()?? 10/23/2023 19:54 Mucus SLIGHT /LPF ()?? 10/23/2023 19:54 Hold Urine Culture Testing available 48 hours from time of collection. ()?? 10/23/2023 19:54 ? URINE OTHER Est Creatinine Clearance 23.95 mL/min ()?? 11/04/2023 13:33 ? VIROLOGY Influenza A PCR NEGATIVE ()?? 10/23/2023 13:32 Influenza B PCR NEGATIVE ()?? 10/23/2023 13:32 RSV PCR NEGATIVE ()?? 10/23/2023 13:32 COVID-19 PCR Specimen Source NASAL ()?? 10/23/2023 13:32 COVID-19 PCR Result NEGATIVE ()?? 10/23/2023 13:32 ? Imaging(s) ?CT Head/Brain W/O Contrast ?? 10/23/2023 18:11??by Ayan Khanna MD ?IMPRESSION: ?? No acute intracranial pathology. Mild chronic small vessel ischemic changes. Old bilateral basal ganglia lacunar infarcts. ?CT Chest W/ Contrast ?? 10/23/2023 18:25??by Darell Al MD ?IMPRESSION: ?? 1. Multifocal consolidation concerning for pneumonia. 2. Small hyperattenuating lesion at the interpolar region of the right kidney is unchanged from 08/10/2023. Further characterization can be performed with ultrasound or renal lesion CT/MR. 3. Mildly distended small bowel loops with air-fluid levels with relatively decompressed distal small bowel loops. Depending on clinical setting, this can be seen with an enteritis or a low-grade early bowel obstruction.Clinically correlate. ?Chest Portable ?? 10/30/2023 12:01??by Dennis Terrazas MD, V ?IMPRESSION: ?? Unchanged left retrocardiac density and small left pleural effusion. ?Chest Portable ?? 10/28/2023 10:59??by Francisco Javier Tavares MD ?IMPRESSION: ?? No real improvement since the previous exam. Persistently abnormal left lung base. Atelectasis in the right lung base. ?Chest Portable ?? 10/24/2023 21:58??by Darell Al MD ?IMPRESSION: ?? Enteric tube course below the level of the diaphragm towards the stomach with side-port overlying the stomach and tip below the field of view. ?? No significant change in the retrocardiac opacities and small left pleural effusion. ?Chest Portable ?? 10/24/2023 08:25??by Kera Diaz MD ?IMPRESSION: ?? Enteric tube curls in the stomach with side-port and tip projecting at the level of the stomach. ?? Small left pleural effusion. Findings of mild pulmonary edema. ?? Low lung volumes and retrocardiac and basilar atelectasis. ?Chest Portable ?? 10/23/2023 13:37??by Canelo Guzman MD ?IMPRESSION: ?? Bibasilar atelectasis or pneumonia and associated pleural effusions. This represents significant improvement in aeration on the left and new infiltrate on the right. ?Abdomen AP ?? 10/25/2023 10:00??by Kera Diaz MD ?IMPRESSION: ?? Resolution of previously seen gaseous distention of small bowel in the right lower quadrant. Nonobstructed bowel gas pattern. ?Abdomen Comp Inc Decub and/or Erect ?? 10/24/2023 18:13??by Solange PRADO, Vita O ?IMPRESSION: ?? Normal. ?ECG 12-Lead ?? 10/23/2023 13:29??by Ermelinda Hyatt DO ?[id number] Ventricular Rate: 58 BPM Atrial Rate: 58 BPM P-R Interval: 192 ms QRS Duration: 88 ms Q-T Interval: 474 ms QTC Calculation(Bazett): 465 ms P [place]: 44 degrees R [place]: 1 degrees T [place]: 54 degrees Sinus bradycardia Minimal voltage criteria for LVH, may be normal variant ( R in aVL ) Nonspecific T wave abnormality Prolonged QT Abnormal ECG When compared with ECG of 03-SEP-2023 10:31, Premature atrial complexes are no longer Present T wave amplitude has increased in Anterior leads QT has lengthened ?CT Abd/Pelvis W/ IV Contrast Only ?? 10/23/2023 18:25??by Darell Al MD ?IMPRESSION: ?? 1. Multifocal consolidation concerning for pneumonia. 2. Small hyperattenuating lesion at the interpolar region of the right kidney is unchanged from 08/10/2023. Further characterization can be performed with ultrasound or renal lesion CT/MR. 3. Mildly distended small bowel loops with air-fluid levels with relatively decompressed distal small bowel loops. Depending on clinical setting, this can be seen with an enteritis or a low-grade early bowel obstruction.Clinically correlate. ? Consults(s) ?Consultation Note ?? 10/28/2023 14:05??by Leroy PRADO, Rene Díaz ?Patient is a 73 year old male with PMH of CVA with residual left sided hemiplegia, now largely nonverbal, afib on Eliquis, seizure disorder on Keppra, schizophrenia, CAD, HTN, HLD, COPD, type 2 DM, CKD stage IV, and PAD, admitted for severe sepsis secondary to multifocal pneumonia. Patient given IV Keppra 2 g in ED for concerns of decreased responsiveness and abnormal eye movements. Non-con CT head showing old bilateral basal ganglia lacunar infarcts, no acute intracranial process. Neurology consulted today for potential post ictal state as patient is more lethargic today comparedto baseline. ?? DDX: Post ictal vs infectious/ metabolic encephalopathy ?? Increase Keppra from 250 mg BID to 500 mg BID. ??Will consider vEEG if still concerned for seizure, monitor overnight. ??Neurology will follow. ?Discussed with Dr. Harper ?Consultation Note ?? 10/24/2023 01:36??by Prasanna Sharma MD ?Argentina Garrett is a 73-year-old male with history of schizophrenia, nonverbal, atrial fibrillation, GERD who presented from his nursing home with hypothermia, nausea vomiting and abdominal distention for whom surgery was consulted for evaluation of an early small bowel obstruction. Patient is unable to give any history related to bowel function. Physical exam is significant for protuberant yet soft nontender minimally distended abdomen. CT scan does show evidence of stool burden within the colon, and mild dilation of the distal small bowel within the pelvis. At the time of evaluation, patient does not appear to be clinically obstructed, however as patient is nonverbal unable to ascertain bowel function and reliability of abdominal exam. Patient will be admitted to the medical service for management of multifocal pneumonia, surgery will attempt to reexamine patient the following morning to ensure continued benign abdominal exam and appropriateness for diet advancement. ?? Recommendations ??? Admit to medical service for management of multifocal pneumonia ??? N.p.o./IVF ??? Reexamination in a.m. by surgical team ???If refractory nausea vomiting, insert nasogastric tube ?? Discussed with Dr. Sharma ??ACS [id number] ? 32??minutes spent on discharge * Event Display: Discharge/Transfer Note Hospital Authored Date: * Lashay TAPIA, Nicole Antonio: PERFORM Event Display: Patient Education/Instruction Authored Date: Inpatient Adult Discharge Instructions. [address] [address] Name: ARGENTINA GARRETT : 1950?? Visit: 10/23/2023 21:36?? Current Date: 11/05/2023 10:51 ?? Account: [id number]?? Inpatient Adult Discharge Instructions We would like [...] and their families. Surveys are administered by [employer] ?? If further treatment with your primary care physician or another doctor is recommended, it is important for you to keep the appointment. Call your primary care physician or return to the Emergency Department immediately if your condition worsens, fails to improve, or new symptoms develop. If you need to find a doctor, you can call [facility] for a referral at [phone] or toll free at [phone] or log in to [email or web address].. ?? [facility], in keeping with [facility] guidance, no longer requires face masks [...] a health care balaji of your choosing. [employer] is a website that allows you to securely view your medical information including your hospital discharge summary, office visit summaries, medications and follow-up visits. You can also request appointments, renew medications, and request access to your medical information using a health care balaji of your choosing, or just ask a question. You can enroll at [email or web address] or register during your next office visit. You have been discharged from [facility], Patient Care Unit: D6B??. If you have any questions regarding these instructions, including results of studies pending, afteryou leave, please call us and we will be happy to assist you 27/04. [facility] Your Care Team Attending Physician Ken Mckeon MD?? Consulting Providers Ken Mckeon MD?? Discharging Providers Michael Montano DO Reason for Your Visit hypothermia, sepsis 2/2 pneumonia, possible SBO?? Your Diagnosis Severe sepsis Acute respiratory failure with hypoxia Multifocal pneumonia Urinary tract infection in male Small bowel obstruction Enteritis Chronic constipation Acute renal failure superimposed on stage 4 chronic kidney disease, unspecified acute renal failuretype Chronic kidney disease, stage 4 (severe) Dysphagia Dysphagia Seizure disorder Seizure disorder Autonomic instability BPH with urinary obstruction Esophagitis History of gastrointestinal hemorrhage Hypothermia Hypothermia Anemia of chronic disease History of CVA with residual deficit Cognitive impairment Chronic obstructive pulmonary disease Chronic diastolic heart failure Atrial fibrillation Renal lesion Type 2 diabetes mellitus Acute hypoxic respiratory failure PELON (acute kidney injury) CKD (chronic kidney disease), stage IV Emesis Hypotension Hypothyroidism Metabolic encephalopathy Reflux esophagitis Schizophrenia Schizophrenia Tests Performed Below is a partial list of the tests performed during your hospitalization. You may have had other tests and procedures not included in this list. Please discuss all test results with your provider. ABG?-- Results Pending -- BASE EXCESS POC CARTRIDGE Basic Metabolic Panel BUN CALCIUM IONIZED POC CART CBC CBC w/ Differential Comprehensive Metabolic Panel Cortisol Level COVID-19, RSV, and Flu A/B, Rapid PCR Electrolytes FREE T4 GLUCOSE POC GLUCOSE POC CARTRIDGE HEMATOCRIT POC CARTRIDGE HEMOGLOBIN A1C HEMOGLOBIN POC CARTRIDGE Lactate Level Lactic Acid Level Lipase Magnesium Level MRSA PCR Nasal Swab Phosphorus Level POTASSIUM POC CARTRIDGE ProBNP PROCALCITONIN, SERUM SODIUM POC CARTRIDGE Troponin T, High Sensitivity TSH with T4 Reflex (Adults Only) Type and Screen Urinalysis w/hold for Urine Culture VBG POC CARTRIDGE CT Abd/Pelvis W/ IV Contrast Only CT Chest W/ IV Contrast CT Head/Brain W/O Contrast CXR Portable KUB PCXR XR ABD COMP/DECUB/ERECT XR Chest Portable You will be contacted within 72 hours with your results. Add On Lab Order?? Basic Metabolic Panel?? Blood Gas Arterial (ABG)?? CBC (COMPLETE BLOOD COUNT)?? Creatinine?? Primary Care Provider Mark Arredondo MD? Discharge Vitals Temperature: 97.4 DegF Height: 188 cm Pulse Rate: 68 bpm Weight: 89.2 kg Respiratory Rate: 18 br/min Body Mass Index:??25.24 kg/m2??High Systolic Blood Pressure:??150 mm Hg??High Body surface area: 2.16 Diastolic Blood Pressure: 67 mm Hg ?? Oxygen Saturation: 100 % ?? Studies Pending All studies ordered during this hospital stay have been completed unless listed below. Please discuss all pending results with your provider listed above in these instructions. ?? Add On Lab Order?? Basic Metabolic Panel?? Blood Gas Arterial (ABG)?? CBC (COMPLETE BLOOD COUNT)?? Creatinine?? What to do next Instructions From Your Doctor DIAGNOSIS / RESULTS / PROCEDURES (what was done): You were found to have??a lung infection (pneumonia) and urinary tract infection.?? Based on results on the??CT scan done in the ED, there was initial concern you may have??had a bowel obstruction which is why you couldn't eat. This seemed??to resolve and likely you didn't one but??instead??had??a stomach bug. We??think you vomited from the??stomach bug??and accidentally aspirated??on it??which??caused the infection.?UTIs can cause fever, vomiting, and fatigue; people sometimes complain of burning when they urinate, or blood in their urine. We treated both your UTI and pneumonia with antibiotics and you got better. Because of the infections we were concerned you were having seizures heremaking you more confused, so neurology recommended increasing your home seizure medicine dose whileyou were getting antibiotics and you did better. We also removed your Burger after the antibiotics and you were able to urinate well.? INSTRUCTIONS (what you need to do): Make sure you are drinking plenty of fluids; if you have any pain please take Tylenol as to not harm your kidneys.?? Please follow up with your PCP in 1-3 days.? Come back to the emergency department if you are not able to drink??any fluids, have a lot??of vomiting a lot, feel disoriented or confused, or if?? you have any other major concerns. ?? MEDICATIONS (what you need to take):?? Please continue to take all your home medicines as prescribed. Although we did increase the Keppra dosing temporarily while here, you can take your regular medication. We did not start, stop or change any medicines.? Orders? 11/05/23 10:36:00 EST?? Prescriptions??, ??11/05/23 10:36:00 EST , ??11/04/23 11:11:00 EST?? Scheduled Follow-Up Appointments Thursday 3:30 PM EDT ?? Where: [facility] Status: Pending You Need to Schedule the Following Appointments Follow Up with??Mark Arredondo MD When:??Within 1-2 day: call to discuss follow up visit Where: [address] [facility] [place] [address]- Discharge Medications ARGENTINA GARRETT :1950 Visit Date:10/23/2023 Medications: Please continue your medications until treatment is completed or stopped by your provider. Medications not listed below should be discontinued. Discuss any questions related to medications with your provider. What How Much When Instructions Next Dose Changed Acetaminophen (acetaminophen 325 mg oral tablet) 2 tab(s) Oral Every 8 hours as needed for pain/fever >101F as needed Unchanged Amlodipine (amLODIPine 10 mg oral tablet) 1 tab(s) Oral Daily in the morning 11/06 9am Unchanged apixaban (Eliquis 5 mg oral tablet) 1 tab(s) Oral Twice a day 11/05 9pm Unchanged Atorvastatin (atorvastatin 20 mg oral tablet) 1 tab(s) Oral Daily at Bedtime 11/05 bedtime Unchanged Benztropine (benztropine 1 mg oral tablet) 1 Milligram Oral Twice a day 11/05 9pm Unchanged Bisacodyl (bisacodyl 10 mg rectal suppository) 1 suppository(ies) Per rectum Every 72 hours as needed for if no BM in 3 days if MOMis ineffective ?? as needed Unchanged Cholecalciferol (cholecalciferol 2000 intl units oral tablet) 1 tab(s) Oral Daily in the morning 11/06 9am Unchanged Docusate (docusate sodium 100 mg oral capsule) 2 capsule Oral Daily in the morning 11/06 9am Unchanged Emollients, Topical (Minerin topical cream) Topically Daily at Bedtime to bilateral feet ?? 11/05 bedtime Unchanged Finasteride (finasteride 5 mg oral tablet) 1 tab(s) Oral Daily in the morning 11/06 9am Unchanged Folic Acid (folic acid 1 mg oral tablet) 1 tab(s) Oral Daily in the morning 11/06 9am Unchanged Glucagon (Glucagon Emergency Kit for Low [...] than 100 BS ?? as needed Unchanged Haloperidol (haloperidol decanoate 50 mg/ ml injectable solution) 0.5 Milliliter Intramuscular Every 28 days STARTED ?? as directed Unchanged Insulin Lispro (insulin lispro 100 units/ mL injectable solution) 2-10 units Subcutaneous Injection 3 times a day with meals 11/05 with meals Unchanged Isosorbide Mononitrate (Imdur 30 mg oral tablet, extended release) 30 Milligram Oral Daily 11/06 9am Unchanged Lactulose (lactulose 10 gm/ 15 ml oral syrup) 30 Milliliter Oral Daily 11/06 9am Unchanged levETIRAcetam (levETIRAcetam 100 mg/ mL oral solution) 2.5 Milliliter Oral Twice a day 11/05 9pm Unchanged Levothyroxine (Synthroid 0.1 mg oral tablet) 100 Microgram Oral Daily 11/06 7am Unchanged Milk of Magnesia (MOM Liquid) 30 Milliliter Oral Every 72 hours as needed for if no BM in 3 days as needed Unchanged Multivitamin (Daily Seema oral tablet) 1 tab(s) Oral Daily in the morning 11/06 9am Unchanged Olanzapine (olanzapine 5 mg oral tablet) 5 Milligram Oral Daily at Bedtime 11/05 bedtime Unchanged Pantoprazole (pantoprazole 40 mg oral delayed release tablet) 40 Milligram Oral Twice a day continue until endoscopy obtained ?? 11/05 9pm Unchanged Risperidone (risperiDONE 2 mg oral tablet) 1 tab(s) Oral Twice a day 11/05 9pm Unchanged Senna (Senna 8.6 mg oral tablet) 2 tab(s) Oral Daily as needed for for constipation as needed Unchanged Sodium Biphosphate-Sodium Phosphate (Fleet Enema 19 gm-7 gm rectal enema) 1 Each Per rectum Every 72 hours as needed for if no BM in 3 days if suppository is ineffective ?? as needed Unchanged Sucralfate (Carafate 1 gm oral tablet) 1 tab(s) Oral 3 times a day 6 AM, 12 PM & 5 PM NOT ON PAPER CHART ?? 11/05 5pm Unchanged Tamsulosin (tamsulosin 0.4 mg oral capsule) 2 capsule Oral Daily at Bedtime 11/05 bedtime Unchanged Thiamine (thiamine 100 mg oral tablet) 100 Milligram Oral Daily 11/06 9am ?? What How Much When Comments Stop Taking Amoxicillin-Clavulanate (Augmentin 875 Tablet) 1 tab(s) Oral Twice a day Last dose to be on 12/ 8 in AM ?? Prescription Given During Visit No new medications prescribed at time of discharge.?? Laboratory Results Below is a partial list of the most recent Laboratory test results done prior to this discharge. You may have had other tests and procedures not included in this list. Please discuss all test resultswith your provider. Est Creatinine Clearance - 23.95 mL/min (11/04/2023) BASE EXCESS POC CARTRIDGE (10/23/2023) ???Base Excess (POC) POC Cartridge - 2 Basic Metabolic Panel (11/04/2023) ???Sodium - 140 mmol/L???Potassium - 4.3 mmol/L???Chloride - 103 mmol/L???Bicarbonate Level - 28 mmol/L???Anion Gap - 9???Glucose Level - 143 mg/dL???BUN - 28 mg/dL???Creatinine-Blood - 3.1 mg/dL???Estimated GFR Creatinine - 20 ML/MIN/1.73 M2???Calcium - 9.1 mg/dL BUN (11/01/2023) ???BUN - 26 mg/dL CALCIUM IONIZED POC CART (10/23/2023) ???Ionized Calcium (POC) POC Cartridge - 1.18 mmol/L CBC (11/04/2023) ???WBC - 7.7 k/mm3???RBC - 2.97 m/mm3???Hgb - 8.4 Gm/dL???Hct - 26.5 %???MCV - 89.2 femtoliters???MCH - 28.3 pg???MCHC - 31.7 g/dL???Platelet Count - 236 k/mm3???RDW-SD - 53.3 femtoliters???MPV - 9.6femtoliters???Nucleated RBC (Automated) - 0.0 #/100 WBC'S???Abs. NRBC - 0.0 k/mm3 CBC w/ Differential (10/26/2023) ???WBC - 8.4 k/mm3???RBC - 2.98 m/mm3???Hgb - 8.4 Gm/dL???Hct - 26.7 %???MCV - 89.6 femtoliters???MCH - 28.2 pg???MCHC - 31.5 g/dL???Platelet Count - 150 k/mm3???RDW-SD - 57.0 femtoliters???MPV - 10.9 femtoliters???Nucleated RBC (Automated) - 0.6 #/100 WBC'S???Abs. NRBC - 0.1 k/mm3???Abs. Neut - 5.2 k/mm3???Abs. Lymph - 2.1 k/mm3???Abs. [place] - 0.9 k/mm3???Abs. Eo - 0.1 k/mm3???Abs. Baso - 0.0 k/mm3???Neut % - 61.6 %???Lymph % - 24.8 %???[place] % - 10.1 %???Eos % - 1.2 %???Baso % - 0.4 %???Imm Gran - 1.9 %???Abs. Imm Gran - 0.2 k/mm3 Comprehensive Metabolic Panel (10/23/2023) ???Sodium - 142 mmol/L???Potassium - 4.8 mmol/L???Chloride - 102 mmol/L???Bicarbonate Level - 25 mmol/L???Anion Gap - 15???Glucose Level - 163 mg/dL???BUN - 62 mg/dL???Creatinine-Blood - 3.6 mg/dL???Estimated GFR Creatinine - 17 ML/MIN/1.73 M2???Calcium - 9.4 mg/dL???Protein, Total - 7.5 Gm/dL???Albumin - 3.7 Gm/dL???AG Ratio - 1.0???Alkaline Phosphatase - 241 units/L???AST (SGOT) - 18 units/L???ALT (SGPT) - 17 units/L???Bilirubin, Total - 0.3 mg/dL Cortisol Level (10/24/2023) ???Cortisol Level - 19.6 ??g/dL COVID-19, RSV, and Flu A/B, Rapid PCR (10/23/2023) ???Influenza A PCR - NEGATIVE???Influenza B PCR - NEGATIVE???RSV PCR - NEGATIVE???COVID-19 PCR Specimen Source - NASAL???COVID-19 PCR Result - NEGATIVE Electrolytes (11/01/2023) ???Sodium - 141 mmol/L???Potassium - 4.4 mmol/L???Chloride - 105 mmol/L???Bicarbonate Level - 27 mmol/L???Anion Gap - 9 FREE T4 (10/23/2023) ???Free T4 - 1.33 ng/dL GLUCOSE POC (11/05/2023) ???Glucose, POC - 167 mg/dL GLUCOSE POC CARTRIDGE (10/23/2023) ???Glucose (POC) POC Cartridge - 167 HEMATOCRIT POC CARTRIDGE (10/23/2023) ???Hematocrit (POC) POC Cartridge - 33 % HEMOGLOBIN A1C (10/23/2023) ???Hemoglobin A1C (Monitoring) - 7.5 % HEMOGLOBIN POC CARTRIDGE (10/23/2023) ???Hemoglobin (POC) POC Cartridge - 11.2 Gm/dL Lactate Level (10/23/2023) ???Lactate - 3.2 mmol/L Lactic Acid Level (10/23/2023) ???Lactate - 1.6 mmol/L Lipase (10/23/2023) ???Lipase - 14 units/L Magnesium Level (11/01/2023) ???Magnesium - 2.2 mg/dL MRSA PCR Nasal Swab (10/25/2023) ???MRSA PCR Result - Negative, MRSA target DNA not detected.???S Aureus PCR Result - Negative, SA target DNA not detected. Phosphorus Level (10/31/2023) ???Phosphorus - 4.0 mg/dL POTASSIUM POC CARTRIDGE (10/23/2023) ???Potassium (POC) POC Cartridge - 5.1 mmol/L ProBNP (10/23/2023) ???Nt-Probnp - 263 pg/mL PROCALCITONIN, SERUM (10/23/2023) ???Procalcitonin - 0.16 ng/mL SODIUM POC CARTRIDGE (10/23/2023) ???Sodium (POC) POC Cartridge - 138 mmol/L Troponin T, High Sensitivity (10/23/2023) ???High Sensitivity Troponin (HSTnT) - 27 ng/L TSH with T4 Reflex (Adults Only) (10/23/2023) ???TSH - 4.29 uIU/mL Type and Screen (10/23/2023) ???Blood Type - O Positive???Antibody Screen - Negative Urinalysis w/hold for Urine Culture (10/23/2023) ???Appear/Color, Urine - YELLOW???Specific [place], Urine - 1.023???pH, Urine - 8.5???Albumin, Urine - 3+???Glucose, Urine - NEGATIVE???Ketones, Urine - NEGATIVE???Bilirubin, Urine - NEGATIVE???Hemoglobin, Urine - NEGATIVE???Nitrite, Urine - NEGATIVE???Leukocyte, Urine - 2+???Urobilinogen - NORMAL???WBC's, Urine - 2 /HPF? ?RBC's, Urine - NONE SEEN? ?Squamous Epith - <1 /HPF? ?Uric Acid Crystals - SLIGHT???Mucus - SLIGHT???Hold Urine Culture - Testing available 48 hours from time of collection. VBG POC CARTRIDGE (10/23/2023) ???pH Venous (POC) POC Cartridge - 7.38???pCO2 Venous (POC) POC Cartridge - 45.9 mm Hg???pO2 Venous(POC) POC Cartridge - 35 mm Hg???Est Bicarbonate (POC) POC Cartridge - 26.8 mmol/L???% O2 Sat Venous (POC) POC Cartridge - 65???Specimen Type - Blood Gas - VENOUS Allergies (NKA means No Known Allergies) NKA [...] Educational Leaflet Providered with your Discharge Instructions. Viral Gastroenteritis (Adult)?? Zones Viral Gastroenteritis?? Stroke: Tips for Swallowing?? Urinary Tract Infections in Men?? Zones UTI?? Chest and Lung Problems?? Valuables and Belongings I fully understand and agree that [facility] accepts no responsibility for all [...] to send valuables and belongings home. ?? No Valuables/Belongings: No valuables/belongings present Review of Valuable and Belonging List: With patient, With witness Disposition of Belongings: Sent home with patient/family Date for Pt to Sign Valuables/Belongings: 11/05/23 10:46:00 ?? Other Discharge Information ? Case Management Discharge Plan?? Discharge Plan?? Discharge Agency Information?? Discharge Level of Care at Discharge: correction facility Agency [facility] [employer]1: admissions Discharge Transportation Arranged: [facility]i Barr[facility] Response [facility] [phone] Service Categories #1: Occupational Therapy, Physical Therapy, Snf, Advanced Practice Professional Mode of Transportation Arranged: Ambulance ?? Discharge Arranged Transport Date/Time: 11/04/23 12:00:00 ?? Discharge Nursing Homes/Rehab Facilities: [facility] ??[phone] ? Pulmonary Rehab Status?? Pulmonary Rehab Discharge [...] are strongly encouraged to quit. Please call [facility] at [phone] or [phone] ([phone]) or log in to [email or web address] for referrals to smoking cessation programs. ?? 378 Suicide & Crisis Lifeline is available 27/04 if you or someone you know needs to find a reason to keep living. By calling 857 you'll be connected to a skilled, trained counselor at a crisis center in your area. INPATIENT DISCHARGE INSTRUCTIONS SIGNATURE PAGE ARGENTINA GARRETT Location:[facility] Registration Date and Time:10/23/2023 21:36 EST Primary Care Physician: Mark Arredondo MD, Attending Physician: Ken Mckeon MD, I MICKIARGENTINA CORRALES, have received the above patient education materials/instructions and have verbalized understanding. If ambulance or transport services are being used I further acknowledge being given a choice of service. ?? If you need to contact me, please call me at this number: . Patient/Service Person Name: Patient/Service Person Signature: Relationship to Patient: Witness Name/Signature: Date: * Kell Caraballo RN: PERFORM, SIGN, VERIFY Event Display: Case Management Discharge Plan Authored Date: [id number] Patient: ARGENTINA GARRETT Age: 73 years Sex: Male : 1950 Associated Diagnoses: None Author: Kell Caraballo RN Discharge Plan Case Management Discharge Plan : Case Management Discharge Plan Data 11/04/2023 9:59 EST Discharge Level of Care at Discharge correction facility Discharge Nursing Homes/Rehab Facilities [facility] [phone] Discharge Transportation Arranged [facility] [phone] Discharge Arranged Transport Date/Time 11/04/2023 12:00 Mode of Transportation Arranged Ambulance Agency [facility]1 admissions Service Categories #1 Occupational Therapy, Physical Therapy, Snf, Advanced Practice Professional * Event Display: Provider Clarification Note Please click on pdf link to open report * Cathi PRADO, Lacy Joshi: PERFORM Event Display: Patient Education Leaflets Authored Date: [id number] Viral Gastroenteritis (Adult) ?? [id number] Viral Gastroenteritis (Adult) Gastroenteritis is often called the stomach flu. But it has nothing to do with influenza. It's mostoften caused by a virus that affects the stomach and intestinal tract. Most bouts last from 2 to 7 days. Common viruses causing gastroenteritis include norovirus, rotavirus, and hepatitis A. Nonviralcauses of gastroenteritis include bacteria, parasites, and toxins. The danger from repeated vomiting or diarrhea is dehydration. This is when the body loses too??muchfluid. When this occurs, you must replace the body fluids. Antibiotics aren't an effective treatment for this condition because it's caused by a virus. Symptoms of viral gastroenteritis may include: ??? Watery, loose stools ??? Stomach pain or belly (abdominal) cramps ??? Fever and chills ??? Nausea and vomiting ??? Loss of bowel control ??? Headache Home care Gastroenteritis is spread by contact with the stool or vomit of an infected person. This can occur from person to person or from contact with a contaminated surface. Follow these guidelines when caring for yourself at home: ??? If symptoms are severe, rest at home for the next 24 hours or until you are feeling better. ???Wash your hands with soap and clean, running water or use alcohol-based engraver block to prevent the spread of infection. Wash your hands after touching anyone who is sick. ??? Wash your hands or use alcohol-based engraver block after using the toilet and before meals. Clean the toilet after each use. Remember these tips when preparing food: ??? People with diarrhea should not prepare or serve food??to others. When preparing foods, wash your hands before and after. ??? Wash your hands after using cutting boards, counter tops, knives, or utensils??that have been in contact with raw food. ??? Dry your hands with a single-use disposable towel. ??? Keep uncooked meats away from cooked and vzork-ol-opc foods. Medicine Use acetaminophen or nonsteroidal anti-inflammatory drugs (NSAID) such as ibuprofen or naproxen to control fever, unless another medicine was given. If you have chronic liver or kidney disease, talk with your healthcare provider before using these medicines. Also talk with your provider if you've??had a stomach ulcer or??gastrointestinal bleeding. Don't give aspirin??to anyone under 18 years of age who is ill with a fever. It may result in a serious illness called Leonid syndrome that may cause severe liver damage or even . Don't use NSAIDS if you're already taking one for another condition (like arthritis) or are on aspirin (such as for heart disease or after a stroke). If medicines for vomiting or diarrhea are prescribed, take these only as directed. Nausea and diarrhea medicines are generally OK unless you have bleeding, fever, or severe abdominal pain. Diet Follow these guidelines for??food: ??? Water and liquids are important so you don't get dehydrated. Drink small amounts often or suck on ice chips as tolerated if you are vomiting. ??? If you eat, stay away from fatty, greasy, spicy, or fried foods. ??? Don't eat dairy if you have diarrhea. This can make diarrhea worse. ??? Avoid tobacco, alcohol, and caffeine. These may worsen symptoms. During the first 24 hours (the first full day), follow the diet below: ??? Beverages. Sip sports drinks, soft drinks without caffeine, bijan burke, mineral water (plain orflavored), decaffeinated tea and coffee. If you are very dehydrated, sports drinks aren't a good choice. They have too much sugar and not enough electrolytes. In this case, use products called oral rehydration solutions. You can buy these at pharmacies and grocery stores. ??? Soups. Eat clear broth, consomm??, and bouillon. ??? Desserts. Eat gelatin, ice pops, and fruit juice bars. During the next 24 hours (the second day), you may add the following to the above: ??? Hot cereal, plain toast, bread, rolls, and crackers ??? Plain noodles, rice, mashed potatoes, chicken noodle or rice soup ??? Unsweetened canned fruit (avoid pineapple), bananas ??? Limit fat intake to less than 15 grams per day. Do this by avoiding margarine, butter, oils, mayonnaise, sauces, gravies, fried foods, peanut butter, meat, poultry, and fish. ??? Limit fiber and avoid raw or cooked vegetables, fresh fruits (except bananas), and bran cereals. ??? Limit caffeine and chocolate. Don't use spices or seasonings other than salt. ??? Limit dairy products. ??? Avoid alcohol. During the next 24 hours: ??? Gradually resume a normal diet as you feel better and your symptoms improve. ??? If at any time it starts getting worse again, go back to clear liquids until you feel better. ?? Follow-up care Follow up with your healthcare provider, or??as advised. Call your provider if you don't get betterwithin 24 hours or if diarrhea lasts more than a few days. It's also important to follow up if you can't keep down liquids, which can lead to becoming dehydrated. If a stool (diarrhea) sample was taken, call as directed for the results. ?? Call 911 Call 911 if any of these occur: ??? Trouble breathing ??? Chest pain ??? Confused ??? Severe drowsiness or trouble awakening ??? Fainting or loss of consciousness ??? Rapid heart rate ??? Seizure ???Stiff neck ?? When to get medical advice Call your healthcare provider right away if any of these occur: ??? Abdominal pain that gets worse ??? Continued vomiting (can't keep liquids down) ??? Frequent diarrhea (more than 5 times a day) ???Blood in vomit or stool (black or red color) ??? Dark urine, reduced urine output, or extreme thirst ??? Weakness or dizziness ??? Drowsiness ??? Fever of 100.4??F (38??C)??or higher, or as advised by your provider ??? New rash ?? Last Reviewed Date: 2021 ?? 5882-3082 [employer]. All rights reserved. This information is not intended as a substitute for professional medical care. Always follow your healthcare professional's instructions. ?? * Cathi PRADO, Lacy Joshi: PERFORM Event Display: Patient Education Leaflets Authored Date: [id number] Zones Viral Gastroenteritis ?? 490 VIRAL GASTROENTERITIS ZONES EVERY DAY Taking Care of Yourself with Viral Gastroenteritis Viral Gastroenteritis causes acute Nausea/Vomiting and loose stools, which starts suddenly, worsensquickly, and lasts a short time. EVERY DAY: ??? Take your home medicine as prescribed by the doctor. ??? Keep an updated medication list available. ??? Avoid stress.?? This can cause headaches, which can cause vomiting. ??? Drink 10 cups of liquid a day. ??? Avoid smoking, alcohol, milk, acidic (OJ) or caffeinated fluids. ??? Eat smaller meals more frequently . Which Zone are you today? GREEN, YELLOW, or RED? GREEN ZONE ALL CLEAR - This zone is your goal Your symptoms are under control: ??? You have no pain even after eating a meal. ??? You have no loose stools, nausea, or vomiting. ??? You have no unintentional weight loss. YELLOW ZONE ?? STOP & CALL CAUTION - This zone is a warning If you have one or more, of the following: Call Doctor/Nurse : ??? Frequent Dry Heaves (vomiting but nothing comes out). ??? Nausea/Vomiting or loose stools that do not go away after taking medications. ??? You have questions or concerns about your medicines or condition. RED ZONE EMERGENCY: Seek care immediately if you have any of the following: (Do not drive yourself) ??? You see blood in your vomit or your bowel movements. ??? You have sudden, severe pain in your chest and upper abdomen (belly) after hard vomiting or retching. ??? You have swelling in your neck and chest.??? You are dizzy, cold, and thirsty.?? Your eyes and mouth are dry. ??? You are urinating very little or not at all. ??? You have muscle weakness, leg cramps, and trouble breathing.?? Your heart is beating much faster than normal. ??? You feel pain at the back of your neck.?? You find it hard to think clearly and speak words.?? You have facial twitching. ??? You continue to vomit or have loose stools for over 48 hours. ? * Cathi PRADO, Lacy Joshi: PERFORM Event Display: Patient Education Leaflets Authored Date: [id number] Stroke: Tips for Swallowing ?? 65436 Stroke: Tips for Swallowing Your speech therapist will put you on a special diet to help make swallowing safer and easier. Yourdiet will change as your swallowing improves. As a general rule, chew thoroughly and don't wilcox when you eat. This will lower your risk for aspiration pneumonia. This can occur if food or liquid getsinto your lungs and can be very serious. Follow the swallowing guide below. Your speech therapist wi ll check off the boxes that apply to you. Which side of mouth to use: ?Left ?Right ?? Guide for swallowing Solids Liquids Medicines ?None ?Pur??ed ?Soft ?Regular ?Other ?None by mouth ?Ultra thick ?Thick ?Thin ?Other ?None by mouth ?Crushed tablet ?Liquid form only ?With food ?With water ?Other Body posture Technique ?Sit up straight (90 degrees) ?Recline degrees ?Face forward ?Remain upright minutes after a meal ?Other ?Turn head left/right ?Tuck chin for each swallow ?Tuck chin for ?2 swallows/double swallow ?Alternate liquids and solids ?Other Levels of dysphagia diet The International Dysphagia Diet Standardization Initiative (IDDSI) has created a diet plan or framework for people with dysphagia. The dysphagia diet has levels that rate drinks and foods on a thickness scale from 0 to 7. Drinks are ranked from 0 to 4. Foods are ranked from 3 to 7, depending on thickness. The levels are: Liquid levels ??? Level 0 (thin). These are watery liquids, such as juice, tea, milk, soda, beer, and broth. You can drink them through a nipple, cup, or straw. ??? Level 1 (slightly thick). These are thicker thanwater. They need more effort to drink than thinner liquids but still flow through a straw or nipple. ??? Level 2 (mildly thick). These liquids flow off a spoon but more slowly than thinner drinks. They can be sipped or sucked from a straw with some effort. ??? Level 3 (liquidized, moderately thick). You can drink these from a cup or sucked from a straw with some effort. These are liquids that maybe thick enough to be eaten with a spoon. An example is a thick milkshake. Their texture is smooth without lumps. ??? Level 4 (pureed, extremely thick). These are usually eaten with a spoon. You can't drink them from a cup. An example is pudding. Food levels ??? Level 3 (moderately thick). These are foods that: o Don't require chewing o Have a smooth texture but are not lumpy o Can be eaten with a spoon, but not with a fork o Are not thick enough to stand stiff on a plate. For example, not stiff like molded gelatin. ??? Level 4 (pureed, extremely thick). These foods: o Can often be eaten with a spoon, but sometimes a fork o Can't be drunkfrom a cup o Don't need to be chewed o Can be molded, such as gelatin o Are not sticky or lumpy o Fall off a spoon all together when tilted and still hold shape on a plate. For example, pudding. o Can't be poured but move very slowly if the plate is tilted ??? Level 5 (minced, moist). These foods: o Can be eaten with a fork or spoon, or a chopstick if you have good hand control o Can be scooped and shaped on a plate. For example, mashed potatoes. o Are soft and moist but don't separate into liquid o May have small lumps that can be mashed with the tongue ??? Level 6 (soft). These foods: o Aretender, moist, and bite- sized o Can be eaten with a fork, spoon, or chopsticks but don't need a knife to cut o Must be chewed ??? Level 7 (regular). These are: o Normal, everyday foods of varying textures, including soft, stringy, and hard and crunchy o Foods that can be eaten by any method. For example, from a cup or using utensils. o Foods that need to be chewed, with all types of textures and may have pieces that can't be swallowed, such as gristle ?? Last Reviewed Date: 2022 ?? [id number] [employer]. All rights reserved. This information is not intended as a substitute for professional medical care. Always follow your healthcare professional's instructions. ?? Consult note * Ezequiel Heart: PERFORM, MODIFY Event Display: Consultation Note Authored Date: [id number] Patient: ??ARGENTINA GARRETT ? Age:??73 Years?Sex:??Male?:??1950?? 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 Patient was brought to the [facility] due to emesis and hypothermia, admitted for severe sepsis??secondary to??pneumonia vs enteritis. In ED patient??was administered??IV Keppra 2 g due to decreased responsiveness and abnormal eye movements. ??Non-con CT head showing old bilateral basal ganglia lacunar infarcts, no acute intracranial process. Surgery was consulted for evaluation of CT scan showing possible early SBO. ??CT scan of the abdomen demonstrated??mild small bowel dilation to maximal diameter of 3 cm, with??gradual tapering in the distal small bowel??without discrete transition point.?? CT chest at that time demonstrated a multifocal pneumonia.?? He was admitted to the medical service for management of??multifocal pneumonia.?? The following morning, patient continued to have nausea vomiting requiring NG tube placement.?? NGT output remained low and??follow up??KUB demonstrates nondistended small bowel. Mental status??has started to improve, however he is aphasic at baseline. ??NG tube cleared to beremoved by surgery however kept in place due to inappropriate mental status for swallowing.??This morning, nursing reports patient seems more lethargic. ??Patient was not arousable to noxious stimulus when baseline wakes to verbal. Nursing reports at that time patients rectal temperature was 99 degrees.??Having??reoccurring hypothermia.??Neurology consult was placed for concern of potential post ictal state. ?? No accompanying staff from nursing home at bedside today. Review of Systems Unable to assess due to verbal status. Physical Exam Vitals & Measurements T:??99.1?F?? HR:??88??(Peripheral)?? RR:??16?? BP:??148/47?? SpO2:??99%?? HT:??188??cm?? WT:??89.2??kg?? BMI:??25.24?? Gen: NAD, wakes??easily to voice, ??sleepy HEENT: normocephalic, atraumatic.?Nares patent. NG tube no longer in place, laying next to patients left hand. Mouth normal. Skin: warm and dry Neuro: Mental status??not oriented to person, place, or age.?Follows simple commands inconsistently. Sometimes tracks. Speech:??mumbles, incoherent ?? Cranial Nerves:Eyes open to voice, Gaze midline, brief eye contact, keeps closing. 3mm reactive pupils. EOMI. Blink to threat bilaterally. 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 limited due to patient not following commands. 12/07 BL UE. 2/ BL LE. soft wrist restraints in place. increased tone R>L upper and lower extremeties ensation: responds to light touch Coordination: not able to assess Reflexes: no clonus. ?? Assessment/Plan Patient is a 73 year old male with PMH of CVA with residual left sided hemiplegia, now largely nonverbal, afib on Eliquis, seizure disorder on Keppra, schizophrenia, CAD, HTN, HLD, COPD, type 2 DM, CKD stage IV, and PAD, admitted for severe sepsis secondary to multifocal pneumonia. Patient given IV??Keppra 2 g in ED for??concerns??of decreased??responsiveness and abnormal eye movements. Non-con CT head showing old bilateral basal ganglia lacunar infarcts, no acute intracranial process.?Neurology consulted today for potential post ictal state as patient is more lethargic today compared to baseline. ?? DDX:??Post ictal vs infectious/ metabolic encephalopathy ?? Increase Keppra from 250 mg BID to 500 mg BID. Will consider vEEG if still concerned for seizure, monitor overnight. Neurology will follow. ?? Discussed with Dr. Harper Problem List/Past Medical History Ongoing Anemia of chronic disease Atrial fibrillation CHF (congestive heart failure) Chronic obstructive pulmonary disease Cognitive impairment Coronary artery disease Dementia Dysphagia GERD (gastroesophageal reflux disease) History of CVA with residual deficit Hypertension Hypothyroidism Schizophrenia Seizure disorder Stage III chronic kidney disease Type 2 diabetes mellitus Procedure/Surgical History No qualifying data available. Home Medications Acetaminophen: 650 mg = 2 tablet, By Mouth, Every 8 hours, PRN (pain/fever >101F) Amlodipine: 10 mg = 1 tablet, By Mouth, Daily in AM apixaban: 5 mg = 1 tablet, By Mouth, 2 times a day Atorvastatin: 20 mg = 1 tablet, By Mouth, Daily at bedtime Benztropine: 1 mg, By Mouth, 2 times a day Bisacodyl: 10 mg = 1 supp, Rectally, Every 72 hours, PRN (if no BM in 3 days), if MOMis ineffective Cholecalciferol: 50 mcg = 1 tablet, By Mouth, Daily in AM Docusate: 200 mg = 2 capsule, By Mouth, Daily in AM Emollients, Topical: Topically, Daily at bedtime, to bilateral feet Finasteride: 5 mg = 1 tablet, By Mouth, Daily in AM Folic Acid: 1 mg = 1 tablet, By Mouth, Daily in AM Glucagon: 1 mg, Intramuscular, Once, PRN (low blood sugar ??<60 or >300) Glucagon: 1 mg, Subcutaneous Injection, Once, PRN (Hypoglycemia) Glucose: 15 Gm, By Mouth, Once, PRN (low blood sugar <60) Glucose: See Instructions, gel BS <60 with S/S (if resident is able to take by mouth) give glucose 1 tube by mouth - recheck & retreat every 15min until greater than 100 BS Haloperidol: 25 mg = 0.5 mL, Intramuscular, Every 28 days, STARTED 06/02/23 Insulin Lispro: 2-10 units, Subcutaneous Injection, 3 times a day with meals Isosorbide Mononitrate: 30 mg, By Mouth, Daily Lactulose: 20 Gm = 30 mL, By Mouth, Daily levETIRAcetam: 250 mg = 2.5 mL, By Mouth, 2 times a day Levothyroxine: 100 mcg, By Mouth, Daily Milk of Magnesia: 30 mL, By Mouth, Every 72 hours, PRN (if no BM in 3 days) Multivitamin: 1 tablet, By Mouth, Daily in AM Olanzapine: 5 mg, By Mouth, Daily at bedtime Pantoprazole: 40 mg, By Mouth, 2 times a day, continue until endoscopy obtained Risperidone: 2 mg = 1 tablet, By Mouth, 2 times a day Senna: 17.2 mg = 2 tablet, By Mouth, Daily, PRN (for constipation) Sodium Biphosphate-Sodium Phosphate: 1 each, Rectally, Every 72 hours, PRN (if no BM in 3 days), ifsuppository is ineffective Sucralfate: 1 Gm = 1 tablet, By Mouth, 3 times a day, 6 AM, 12 PM & 5 PMNOT ON PAPER CHART Tamsulosin: 0.8 mg = 2 capsule, By Mouth, Daily at bedtime Thiamine: 100 mg, By Mouth, Daily Allergies NKA Family History No family history recorded. Images (10/23/2023 18:[address] Head/Brain W/O Contrast) ?? IMPRESSION: ?? No acute intracranial pathology. Mild chronic small vessel ischemic changes. Old bilateral basal ganglia lacunar infarcts. [1] [1]??CT Head/Brain W/O Contrast; Jey PRADO, Ayan H 10/23/2023 18:11 EST * Leroy PRADO, Rene Díaz: PERFORM Event Display: Consultation Note Authored Date: I personally saw and examined the patient and agree with the findings and plan as noted below.?? Patient is a 73 yo male with history of stroke with residual deficit, hypertension, type 2 diabetes, GERD, atrial fibrillation on Eliquis, CHF, dementia, schizophrenia, seizure disorder on levetiracetam, largely nonverbal who presented with decreased responsiveness and abnormal eye movements.?? CT head showed old bilateral basal ganglia infarcts but nothing acute. ?? Impression: post-ictal state vs encephalopathy related to infection, intermittent hypothermia, metabolic or combination of all.?? Recommend increase in levetiracetam to 500 mg bid in light of ongoinginfection.?? Consider video EEG if mental status declines or concern of seizures remain. ? * Kedar Lambert MD: PERFORM Event Display: Consultation Note Authored Date: Patient: ??ARGENTINA GARRETT ? Age:??73 Years?Sex:??Male?:??1950?? Chief Complaint/Reason for Consult Early small bowel obstruction History of Present Illness Argentina Garrett is a 73-year-old male??with history of??schizophrenia, nonverbal, atrial fibrillation,??GERD,??COPD, hypertension??who is presenting from nursing home??with hypothermia, abdominal distention and nausea vomiting??for whom surgery is being consulted for evaluation of an early small bowelobstruction.?? Reportedly patient was hypothermic to a??T low of 90.?? On arrival??to the ED??he was found to be severely distended and having large bouts of emesis.?? Given hypothermia, he was activated as a??resuscitation.?? On arrival he underwent??CT scan of the chest and abdomen and pelvis.?? CT scan of the chest was suggestive of multifocal pneumonia.?? CT scan of the abdomen and pelvis??teresa wed??possible evidence of small bowel dilation up to 3 cm with distally decompressed bowel, suggestive of possible developing small bowel obstruction.?? I meeting with the patient, he is nonverbal and unable??to tell??or notify of any complaints.?? There was no accompanying staff from nursing home atbedside. Review of Systems Unable to obtain due to patient status Physical Exam Vitals & Measurements T:??95.6?F?? HR:??71??(Peripheral)?? RR:??18?? BP:??112/55?? SpO2:??98%?? Constitutional: Well appearing, no acute distress HEENT: Normocephalic, atraumatic, PERRL,??moist mucous membranes. Respiratory: Normal WOB, CTA b/l. No wheezing, rales or rhonchi. Cardiovascular: Audible S1 S2 regular. No m/r/g Abdominal: Moderately obese, protuberant abdomen.?? However??soft easily compressible.?? Nontender to palpation.?? No rebound or guarding. ??No tympany Neurologic: Cranial nerves II-XII intact. Motor and sensation grossly intact b/l. Extremities: No wounds, bruises or injuries. No gross deformities. ROM normal. Skin: No rashes or lesions. No petechiae or purpura.?? Assessment/Plan Argenitna Garrett is a 73-year-old??male with history of??schizophrenia, nonverbal,??atrial fibrillation, GERD??who presented from his nursing home??with hypothermia, nausea vomiting and abdominal distention for whom surgery was consulted for evaluation of an early??small bowel obstruction.?Patient is ??unable to give any history??related to??bowel function.??Physical exam is significant??for??protuberant yet??soft nontender minimally distended abdomen.?? CT scan??does show evidence of??stool burden within the colon, and??mild dilation??of??the distal small bowel within the pelvis.?? At the timeof evaluation, patient does not appear to be clinically obstructed, however??as patient is nonverbal??unable to ascertain??bowel function??and reliability of abdominal exam.?? Patient will be admitted to the medical service for management of??multifocal pneumonia,??surgery??will attempt to reexamine patient??the following morning??to ensure??continued benign abdominal exam??and??appropriateness for diet advancement. ?? Recommendations ?Admit to medical service for management of multifocal pneumonia ?N.p.o./IVF ?Reexamination in a.m. by surgical team ???If refractory nausea vomiting, insert nasogastric tube ?? Discussed with Dr. Sharma [facility] [id number] Problem List/Past Medical History Ongoing Anemia of chronic disease Atrial fibrillation CHF (congestive heart failure) Chronic obstructive pulmonary disease Cognitive impairment Coronary artery disease Dementia Dysphagia GERD (gastroesophageal reflux disease) History of CVA with residual deficit Hypertension Hypothyroidism Schizophrenia Seizure disorder Stage III chronic kidney disease Type 2 diabetes mellitus Procedure/Surgical History No qualifying data available. Home Medications Acetaminophen: 650 mg = 2 tablet, By Mouth, Every 8 hours, PRN (pain/fever >101F) Amlodipine: 10 mg = 1 tablet, By Mouth, Daily in AM apixaban: 5 mg = 1 tablet, By Mouth, 2 times a day Atorvastatin: 20 mg = 1 tablet, By Mouth, Daily at bedtime Benztropine: 1 mg, By Mouth, 2 times a day Bisacodyl: 10 mg = 1 supp, Rectally, Every 72 hours, PRN (if no BM in 3 days), if MOMis ineffective Cholecalciferol: 50 mcg = 1 tablet, By Mouth, Daily in AM Docusate: 200 mg = 2 capsule, By Mouth, Daily in AM Emollients, Topical: Topically, Daily at bedtime, to bilateral feet Finasteride: 5 mg = 1 tablet, By Mouth, Daily in AM Folic Acid: 1 mg = 1 tablet, By Mouth, Daily in AM Glucagon: 1 mg, Intramuscular, Once, PRN (low blood sugar ??<60 or >300) Glucagon: 1 mg, Subcutaneous Injection, Once, PRN (Hypoglycemia) Glucose: 15 Gm, By Mouth, Once, PRN (low blood sugar <60) Glucose: See Instructions, gel BS <60 with S/S (if resident is able to take by mouth) give glucose 1 tube by mouth - recheck & retreat every 15min until greater than 100 BS Haloperidol: 25 mg = 0.5 mL, Intramuscular, Every 28 days, STARTED 06/02/23 Insulin Lispro: 2-10 units, Subcutaneous Injection, 3 times a day with meals Isosorbide Mononitrate: 30 mg, By Mouth, Daily Lactulose: 20 Gm = 30 mL, By Mouth, Daily levETIRAcetam: 250 mg = 2.5 mL, By Mouth, 2 times a day Levothyroxine: 100 mcg, By Mouth, Daily Milk of Magnesia: 30 mL, By Mouth, Every 72 hours, PRN (if no BM in 3 days) Multivitamin: 1 tablet, By Mouth, Daily in AM Olanzapine: 5 mg, By Mouth, Daily at bedtime Pantoprazole: 40 mg, By Mouth, 2 times a day, continue until endoscopy obtained Risperidone: 2 mg = 1 tablet, By Mouth, 2 times a day Senna: 17.2 mg = 2 tablet, By Mouth, Daily, PRN (for constipation) Sodium Biphosphate-Sodium Phosphate: 1 each, Rectally, Every 72 hours, PRN (if no BM in 3 days), ifsuppository is ineffective Sucralfate: 1 Gm = 1 tablet, By Mouth, 3 times a day, 6 AM, 12 PM & 5 PMNOT ON PAPER CHART Tamsulosin: 0.8 mg = 2 capsule, By Mouth, Daily at bedtime Thiamine: 100 mg, By Mouth, Daily Allergies NKA Family History No family history recorded. Radiology RESULT: CT Abd/Pelvis W/ IV Contrast Only CT Chest W/ Contrast, CT Abd/Pelvis W/ IV Contrast Only? Reason: Hypothermia, emesis, AMS, desat; Clinical Question(s): Interstitial Alveolar Infiltration ?? TECHNIQUE: Helical CT scan of the chest, abdomen, and pelvis with IV contrast, formatted in 3 planes. 75 cc of Omnipaque 300 was administered intravenously. This study was performed without oral contrast. Weight-based protocol was performed using automatic exposure control.? CTDIvol Body: 12.60 mGy, ??DLP Body: 951 mGy*cm. ? COMPARISON: CT chest/abdomen/pelvis-08/10/2023. ?? FINDINGS:? Maritime Officer view findings, lines and tubes: None. ?? Trachea and airways: Patent without evidence of tracheal or endobronchial lesion. ?? Lungs and pleura: Extensive consolidation in the left upper lobe. Small amount of consolidation in the left upper lobe and right lung base. ?? Mediastinum and kwaku: No mass or hematoma. No mediastinal or hilar lymphadenopathy. Mild distal esophageal wall thickening. Normal thyroid. ?? Heart: Moderate cardiomegaly, unchanged. ??No pericardial effusion. Moderate coronary artery calcification. ?? Aorta: Mild vascular calcification but no aneurysm. ?? Pulmonary arteries: Normal caliber. No evidence of pulmonary embolism on this study performed without angiographic technique. ?? Chest wall soft tissues: No acute abnormality. ?? Diaphragm: Intact. ?? Liver: Normal in attenuation and morphology. No suspicious lesion. ?? Gallbladder: No CT evidence of gallbladder pathology. ?? Bile ducts: No biliary ductal dilation. ?? Spleen: Normal in size. ?? Pancreas: No suspicious lesion or ductal dilatation. ?? Adrenal glands: No nodule. ?? Kidneys and ureters: No hydronephrosis suspicious lesion. Unchanged nonobstructing 0.3 cm calculus at the mid pole of the right kidney (201:109). Unchanged 1.2 cm hyperattenuating lesion within the midpole of the right kidney. Simple appearing renal cysts and hypodensities that are too small to brittany acterize are noted, requiring no dedicated follow up. ?? Bladder: Decompressed with Burger catheter in place, limiting evaluation. ?? Reproductive organs: Unremarkable. ?? Stomach, small bowel, and large bowel: Left abdominal small bowel loops demonstrate mild distentionand air-fluid levels. Distal small bowel loops are relatively decompressed. Mild colonic diverticulosis without evidence of acute diverticulitis. ? Appendix: Normal appendix. ?? Peritoneum and retroperitoneum: No ascites or pneumoperitoneum. No omental or mesenteric lesions. ?? Lymph nodes: No pathologically enlarged lymph nodes. Few prominent lymph nodes measuring up to 0.7 cm (201:145). Additionally, there is a prominent lymph node measuring up to 0.5 cm with internal calcification (201:163). ?? Blood vessels: Moderate-severe atherosclerotic vascular calcification. No aortic aneurysm. No evidence of venous thrombosis. ?? Abdominal and pelvic wall soft tissues: No acute abnormality. ?? Bones: No acute osseous abnormality. Multilevel degenerative changes of the spine. Inferior endplate depression of L4, chronic. ?? IMPRESSION: ?? 1. ??Multifocal consolidation concerning for pneumonia. 2. ??Small hyperattenuating lesion at the interpolar region of the right kidney is unchanged from 08/10/2023. Further characterization can be performed with ultrasound or renal lesion CT/MR. 3. ??Mildly distended small bowel loops with air-fluid levels with relatively decompressed distal small bowel loops. Depending on clinical setting, this can be seen with an enteritis or a low-grade early bowel obstruction.Clinically correlate. Lab Results Labs Last 24 Hours BLOOD COUNT & DIFF ? Event Name?? Event Result?? Date/Time?? WBC 12.8 k/mm3??High 10/23/23 13:29:00 RBC 3.68 m/mm3??Low 10/23/23 13:29:00 Hgb 10.3 Gm/dL??Low 10/23/23 13:29:00 Hct 32.2 %??Low 10/23/23 13:29:00 MCV 87.5 femtoliters 10/23/23 13:29:00 MCH 28 pg 10/23/23 13:29:00 MCHC 32 g/dL??Low 10/23/23 13:29:00 Platelet Count 145 k/mm3??Low 10/23/23 13:29:00 MPV 10.8 femtoliters 10/23/23 13:29:00 Nucleated RBC (Automated) 0.6 #/100 WBC'S 10/23/23 13:29:00 ? CHEM GENERAL ? Event Name?? Event Result?? Date/Time?? Sodium 142 mmol/L 10/23/23 17:11:00 Chloride 102 mmol/L 10/23/23 17:11:00 Bicarbonate Level 25 mmol/L 10/23/23 17:11:00 Anion Gap 15 10/23/23 17:11:00 Glucose Level 163 mg/dL??High 10/23/23 17:11:00 BUN 62 mg/dL??High 10/23/23 17:11:00 Creatinine-Blood 3.6 mg/dL??High 10/23/23 17:11:00 Alkaline Phosphatase 241 units/L??High 10/23/23 17:11:00 Lipase 14 units/L 10/23/23 17:11:00 AST (SGOT) 18 units/L 10/23/23 17:11:00 ALT (SGPT) 17 units/L 10/23/23 17:11:00 Bilirubin, Total 0.3 mg/dL 10/23/23 17:11:00 ? * Prasanna Sharma MD: PERFORM Event Display: Consultation Note Authored Date: [id number] I have seen and examined the patient, the above note summarizes my encounter on the recorded date Patient Care team information Care Team Personnel Name: Janice Escamilla RN Position: [facility] RN Member Role: Primary Care Nurse Name: Mary Carmen Camara RN Position: [facility] RN Member Role: Primary Care Nurse Name: Mayra Lofton RN Position: [facility] RN Member Role: Primary Care Nurse Name: Janis Bautista RN Position: [facility] RN Member Role: Primary Care Nurse Name: Corwin Rosas RN Position: [facility] RN Member Role: Primary Care Nurse Name: Dayna Menjivar RN Position: [facility] RN Member Role: Primary Care Nurse Name: Monica Camp RN Position: [facility] RN Member Role: Primary Care Nurse Name: Isaiah Hurt RN Position: [facility] RN Member Role: Primary Care Nurse Name: Torito Nicole RN Position: [facility] RN Member Role: Primary Care Nurse Name: Fatimah Greco RN Position: [facility] RN Member Role: Primary Care Nurse Name: Tanya Love RN Position: [facility] RN Member Role: Primary Care Nurse Name: Ibis Vogel RN Position: [facility] RN Member Role: Primary Care Nurse Name: Kellee Solis RN Position: [facility] RN Member Role: Primary Care Nurse Name: Adore Pike RN Position: [facility] RN Member Role: Primary Care Nurse Name: Rody Bianchi RN Position: [facility] RN Member Role: Primary Care Nurse Name: Emma Mcgee Position: S RN Member Role: Primary Care Nurse Name: Apoorva Abel RN Position: S RN Member Role: Primary Care Nurse Name: Yamileth Rivera MD Position: [facility] Renal MD Member Role: Lifetime Consulting Physician Address: Address: [address] [place] [address] [facility] [address]- Name: Yosi Greer RN Position: [facility] RN Member Role: Primary Care Nurse Name: Marly Cochran RN Position: [facility] RN Member Role: Primary Care Nurse Name: Trinity Machado LPN Position: [facility] RN Member Role: Primary Care Nurse Name: Rosa Francis RN Position: [facility] RN Member Role: Primary Care Nurse Name: Ketan Bolanos MD Position: [facility] Renal MD Member Role: Lifetime Consulting Physician Address: Address: [address] [place] [address] [address] [facility] [place] [address]- Name: Aggie Zafar RN Position: [facility] RN Member Role: Primary Care Nurse Name: Mark Arredondo MD Position: [facility] Outreach Member Role: PCP Address: Address: [address] [place] [id number]- Name: Neri Solo RN Position: [facility] RN Member Role: Primary Care Nurse Name: Sharita Thomas RN Position: [facility] RN Member Role: Primary Care Nurse Name: Suzan Arriaga RN Position: [facility] RN Member Role: Primary Care Nurse Name: Will Polo MD Position: [facility] Renal MD Member Role: Lifetime Consulting Physician Address: Address: [address] [place] [address] [facility] [place] [address]- [place] Name: Janice Yadav RN Position: [facility] RN Member Role: Primary Care Nurse Name: Deanna Kingsley LPN Position: [facility] RN Member Role: Primary Care Nurse Name: Juan Pablo Monteiro RN Position: [facility] RN Member Role: Primary Care Nurse Name: Bibiana Woods RN Position: [facility] RN Member Role: Primary Care Nurse Name: Sandie Kwok RN Position: [facility] RN Member Role: Primary Care Nurse Name: Dmitri Rankin RN Position: S RN Member Role: Primary Care Nurse
--- OUTSIDE RECORDS SUMMARY | 2024-06-14 12:02 | XMS_ITS | Continuity of Care Document ---
Author Organization [facility] ter Address [address] [place] [id number] Care Team Providers Care [employer] Officer Name Role Phone Not on Staff, PCP Primary Care Physician Unavail able Encounter [facility] [place] Date(s): 02/13/24 - 02/16/[address] [id number]- Discharge Disposition: A-Transfer SNF Attending Physician: Lashell Anderson DO Admitting Physician: Lucina Bonilla DO Referring Physician: Not on Staff, Referring MD [...] opioid drug. Start Date: 02/13/24 Status: Ordered Acetaminophen Tablet 650 mg, Tablet, By Mouth, Every 4 hours, PRN for Pain , Mild, Temperature Greater than 100.5, Routine, 02/13/24 14:46:00 EDT Start Date: 02/13/24 Stop Date: 02/16/24 Status: Discontinued amLODIPine 10 mg oral tablet 10 mg, [...] Exam Date Time Procedure Performing Provider Status 02/13/24 12:52 PM Chest Portable Yoana Cunningham; Auth ( Verified) Notes: (Chest Portable) Reason For Exam: Fever RESULT: Chest Portable Chest Portable Reason: Fever; Clinical Question(s): Pneumonia COMPARISON: Multiple priors, the most recent 11/21/2023. FINDINGS: LINES AND TUBES: None. LUNGS AND PLEURA: Hazy opacity at the right lower lung. Minimal hazy left retrocardiac opacity. No significant pleural effusion. No pneumothorax. HEART, MEDIASTINUM AND IGNACIO: Mild prominence of the cardiac silhouette. Aorta is tortuous and partially calcified. BONES AND SOFT TISSUES: No acute abnormality. IMPRESSION: Multiple focal opacities, could represent pneumonia in the appropriate clinical setting. I have personally reviewed the images and I agree with this report. WSN: [id number] Ordering Physician: Beatrice Busch Dictated By: Luis E[Radiology] Venkata PRADO Dictated Date/Time: 02/13/24 1:16 pm Reviewed By: Mary Carmen Walsh MD Signed By: Mary Carmen Walsh MD Signed Date/Time: 02/13/24 1:21 pm Transcribed By: CHERELLE Transcribed Date/Time: 02/13/24 1:14 pm Vital Signs Most recent to oldest [Reference Range]: 1 2 3 Height 173 cm (02/16/24 8:51 AM) 173 cm (02/14/24 10:43 AM) 173 cm (02/14/24 8:08 AM) Weight 85.1 kg (02/13/24 2:47 PM) Oxygen Saturation [94-100 %] 97 % (02/16/24 8:51 AM) 98 % (02/16/24 3:07 AM) 98 % (02/15/24 7:36 PM) Pulse Rate [55-90 bpm] 68 bpm (02/16/24 8:51 AM) 60 bpm (02/16/24 3:07 AM) 67 bpm (02/15/24 7:36 PM) Body Mass Index [18.5-24.99 kg/m2] 28.43 kg/m2 *H* (02/13/24 2:47 PM) Blood Pressure [90-138/55-84 mm Hg] 140/62mm Hg *H* (02/16/24 8:51 AM) 136/70mm Hg (02/16/24 3:07 AM) 130/59mm Hg (02/15/24 7:36 PM) Respiratory Rate [16-30 br/min] 18 br/min (02/16/24 8:51 AM) 18 br/min (02/16/24 3:07 AM) 18 br/min (02/15/24 10:05 PM) Temperature [96.8-100.4 DegF] 98 DegF (02/16/24 3:07 AM) 97.8 DegF (02/15/24 7:36 PM) 97.7 DegF (02/15/24 3:00 PM) Liters per Minute 4 L/min (02/14/24 6:00 PM) 4 L/min (02/14/24 10:43 AM) 4 L/min (02/14/24 8:08 AM) Mode of Delivery (Oxygen) Room air (02/16/24 8:51 AM) Room air (02/16/24 3:07 AM) Room air (02/15/24 7:36 PM) Blood pressure sites Arm, left (02/16/24 8:51 AM) Arm, right (02/16/24 3:07 AM) Arm, right (02/15/24 7:36 PM) Temperature Route Oral (02/16/24 3:07 AM) Oral (02/15/24 7:36 PM) Oral (02/15/24 3:00 PM) Weight Obtained Via Bed scale (02/13/24 2:47 PM) Social History Social History Type Response Sex Male Admission evaluation note * Fantasma PRADO, Coretta: PERFORM Event Display: Admission Note Authored Date: Patient: ??ARGENTINA PIPER ? Age:??73 Years?Sex:??Male?:??1950?? 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 -As per EMS, patient was found to be hypoxic in 70s with increased work of breathing, and facility called EMS, they found patient to be hypoxic in the 80s, placed him on 8 L O2 NC. -In the ED, patient hypothermic, rectal temp 96 F, saturating 97% on 8 L O2, otherwise hemodynamically stable.?? Lung auscultation revealed rhonchorous breath sounds on right, and wheezing on the left. -EKG showed sinus rhythm, HR 94, nonischemic.?? QTc 451 ms. -For concerns for pneumonia, COPD exacerbation; patient received albuterol and ipratropium nebs, antibiotics IV ceftriaxone 1 g, IV azithromycin to 50 mg; as per signout, also received IV Solu-Medrol, not in MAR summary. -On my evaluation, patient sleeping comfortably,??on being woken up,??refusing to answer questions,??RN also??mention patient has been refusing??letting them take vitals,??and medications.?? Patient's??charts from??SNF does mention patient has history of refusing??medical care at times. ?? Vitals: Temp 96 F, HR 80s-90s, BP 110s-140/60-70s, RR 20-24, saturating 96% on 6 L O2 NC. ?? Labs: -WBC 13.2 (neutrophilia, no bands or monocytosis); H/H 9.3/28.2 (anemia of CKD), platelet WNL -INR WNL -Sodium 130, potassium unable to calculate as sample hemolyzed; anion gap 16, bicarb 21, blood glucose 260s-290s, creatinine 2.04, BUN 33 (baseline around 3.0, CKD stage IV) -ALP 177; otherwise unremarkable LFTs -Lactate, lipase WNL -High sensitive Trop 33, proBNP 860 -COVID-negative -UA: 2+ albumin, trace glucose, negative ketones, 1+ hemoglobin; nitrite negative, 3+ leukocytes; heavy bacteria, many WBC, few RBC. -Urine and blood cultures 2 sets sent from ED. ?? CXR: Multiple focal opacities, suggestive of multifocal pneumonia. Review of Systems -Pertinent positives and negative history mentioned in HPI. Objective Vital Signs?? Temperature:??96 DegF??Low (02/13/24 15:36:00) Temperature Route: Core Bladder (02/13/24 15:36:00) Normothermic Measures: Warming blanket, Additional blanket (02/13/24 12:04:00) Pulse Rate: 85 bpm (02/13/24 15:36:00) Respiratory Rate: 20 br/min (02/13/24 12:04:00) Systolic Blood Pressure:??144 mm Hg??High (02/13/24 15:36:00) Diastolic Blood Pressure: 76 mm Hg (02/13/24 15:36:00) Pulse Pressure: 68 mm Hg (02/13/24 15:36:00) Oxygen Saturation: 98 % (02/13/24 15:36:00) Liters per Minute: 6 L/min (02/13/24 15:36:00) Mode of Delivery (Oxygen): Nasal cannula (02/13/24 15:36:00) Early Warning Score: 2 (02/13/24 17:59:06) ? Physical Exam General: Awake, alert, oriented to self only. ??Not in acute distress. Following commands appropriately. HEENT: NC/AT, PERRLA, no pallor, no icterus, moist mucous membranes. Neck: Supple, no JVD Respiratory: Clear to auscultation bilaterally. ??No wheezes, rhonchi or crackles appreciated. CVS: Regular rhythm. ??Normal S1-S2 heard. ??No murmurs appreciated. Abdomen: Soft, nondistended, nontender, Normoactive bowel sounds. Neurological: ??Speech normal. Moving all 4 limbs freely. No obvious gross focal neuro deficit appreciated. Extremities: Warm; b/l DP 2+, PT 2+ ; Trace b/l pedal edema. Skin:??Stage II/unstageable??pressure ulcer??in coccygeal region. Assessment/Plan Diagnoses 1. ??Atrial fibrillation ??(I48.91) 2. ??Chronic anticoagulation ??(Z79.01) 3. ??GERD (gastroesophageal reflux disease) ??(K21.9) 4. ??Dysphagia ??(R13.10) 5. ??Hypothyroidism ??(E03.9) 6. ??Schizophrenia ??(F20.9) 7. ??Seizure disorder ??(G40.909) 8. ??Type 2 diabetes mellitus ??(E11.9) 9. ??Chronic obstructive pulmonary disease ??(J44.9) 10. ??Hypothermia ??(T68.XXXA) 11. ??Sepsis ??(A41.9) 12. ??Leucocytosis ??(D72.829) 13. ??High anion gap metabolic acidosis ??(E87.29) 14. ??CKD (chronic kidney disease) stage 4, GFR 15-29 ml/min ??(N18.4) 15. ??Cognitive impairment ??(R41.89) 16. ??AD (Alzheimer's disease) ??(G30.9) 17. ??History of CVA with residual deficit ??(I69.30) 18. ??Expressive aphasia ??(R47.01) 19. ??Dementia ??(F03.90) 20. ??Hypertension ??(I10) 21. ??BPH (benign prostatic hyperplasia) ??(N40.0) 22. ??Multifocal pneumonia ??(J18.9) 23. ??Acute hypoxic respiratory failure ??(J96.01) 24. ??Anemia in chronic kidney disease ??(N18.9) 25. ??Pressure ulcer of coccygeal region, stage 2 ??(L89.152) 26. ??Emotional lability ??(R45.86) 27. ??Xerosis cutis ??(L85.3) 28. ??Wheelchair dependent ??(Z99.3) 29. 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 ?? Acute hypoxic respiratory failure (J96.01):??- Hypothermia (T68.XXXA):??- Leucocytosis (D72.829):??- High anion gap metabolic acidosis (E87.29):??- Sepsis (A41.9):??- Multifocal pneumonia (J18.9):??-??Patient presented with worsening cough,??hypoxia, hypothermia, leukocytosis,??fulfill sepsis criteria -Urine and blood cultures sent from ED; received??IV ceftriaxone 1 g in the ED PLAN: -Start vancomycin, dosed renally;??MRSA nasal swab ordered, if negative, de- escalate antibiotics -Continue IV ceftriaxone 1 g once daily, IV??azithromycin 500 mg 3 times daily -Follow blood cultures??from ID -Sending sputum culture,??urinary??streptococcal??and Legionella antigens,??add on mycoplasma IgM,??extended??viral respiratory panel. -Continue oxygen therapy to keep sats??92-94%, currently requiring??6 L O2 NC ?? Chronic obstructive pulmonary disease (J44.9):??-??Possibly mild exacerbation??in setting of??pneumonia; will treat pneumonia,??otherwise continue Breo??and as needed and scheduled DuoNebs while inpatient, avoid??systemic steroids??given??infection ?? Atrial fibrillation (I48.91):??- Chronic anticoagulation (Z79.01):??-??Rate well-controlled,??continue home Eliquis ?? Seizure disorder (G40.909):??-??Continue home Keppra ?? Hypertension (I10):??-??Continue home antihypertensives ?? Type 2 diabetes mellitus (E11.9):??-??Insulin sliding scale, as needed hypoglycemia sugars ?? CKD (chronic kidney disease) stage 4, GFR 15-29 ml/min (N18.4):??-??Baseline creatinine around 3.0,currently creatinine??2.1; avoid nephrotoxic agents, bladder scan, renally dose medications ?? Schizophrenia (F20.9):??-??Continue home Risperdal, benztropine. ?? Hypothyroidism (E03.9):??-??Continue home levothyroxine ?? 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 AD (Alzheimer's disease) (G30.9):??- Cognitive impairment (R41.89):??- Emotional lability (R45.86):??- Dementia (F03.90):??-??Delirium??prevention measures ?? BPH (benign prostatic hyperplasia) (N40.0):??-??Continue on Flomax, finasteride ?? Anemia in chronic kidney disease (N18.9):??-H/H 9.3/28.2;??continue home iron ?? GERD (gastroesophageal reflux disease) (K21.9):??-??Continue PPI ?? Pressure ulcer of coccygeal region, stage 2 (L89.152):??-??Wound care, wound RN consult ?? Elevated proBNP:??Clinically not in heart failure Elevated trops:??EKG nonischemic, patient chest pain-free,??Trop 32;??likely in setting of demand,??decreased renal clearance.?? Continue telemonitoring. ?? VTE Prophylaxis:??-On Eliquis ?VTE Prophylaxis Assessment:??VTE Prophylaxis Ordered ?? Code Status:??-Full Code ?? Date of Service:??02/13/2024 I spent a total of 60 minutes, including both wgyl-zn-vlje and avc-vhcn-hm-face time on the date ofthe encounter, addressing the above diagnoses. Activities performed in this time include chart review, obtaining/reviewing history, performing a medically necessary evaluation, CODE STATUS discussion, documentation, charting and counseling, documentation, charting and counseling. ?? Please note: This note has been prepared using voice recognition software ([employer]). As a result errors may occur. When identified these merchandise pickup/receiving associate errors have been corrected. While every attempt is made to correct errors during dictation, errors may still exist; for any clarifications, please reach out to me on [employer] or pager. Histories Allergies Allergies ?(Active and Proposed Allergies Only) NKA? (Severity: Unknown severity, Onset: Unknown) ? Past Medical History/Problem List Active Problems(31) Acute hypoxic respiratory failure AD (Alzheimer's disease) [...] mellitus Urine retention Wheelchair dependent Xerosis cutis ? Past Surgical History EGD - esophagogastroduodenoscopy: 02/09/24 ? Social History No social history documented. ? Family History No Family History documented. ? Medications Home Medications Acetaminophen (acetaminophen 325 [...] (ferrous sulfate 325 mg oral enteric coated tablet)?325?Milligram?1?tablet?By Mouth?Daily Finasteride (finasteride 5 mg oral tablet)?1?tab(s)?5?Milligram?By Mouth?Daily [...] morning & evening as per sliding scale:150-200=2 [id number]=7 [id number]=1 [id number]- 350=8 [id number]=5 unitscall MD if <70 or >400 Isosorbide [...] Recent Labs BLOOD COUNT & DIFF WBC 13.2 k/mm3 (High)?? 02/13/2024 12:40 RBC 3.44 m/mm3 (Low)?? 02/13/2024 12:40 Hgb 9.3 Gm/dL (Low)?? 02/13/2024 12:40 Hct 28.2 % (Low)?? 02/13/2024 12:40 MCV 82.0 femtoliters ()?? 02/13/2024 12:40 MCH 27.0 pg ()?? 02/13/2024 12:40 MCHC 33.0 g/dL ()?? 02/13/2024 12:40 Platelet Count 261 k/mm3 ()?? 02/13/2024 12:40 RDW-SD 48.9 femtoliters (High)?? 02/13/2024 12:40 MPV 9.1 femtoliters (Low)?? 02/13/2024 12:40 Nucleated RBC (Automated) 0.0 #/100 WBC'S ()?? 02/13/2024 12:40 Abs. NRBC 0.0 k/mm3 ()?? 02/13/2024 12:40 Abs. Neut 10.4 k/mm3 (High)?? 02/13/2024 12:40 Abs. Lymph 1.9 k/mm3 ()?? 02/13/2024 12:40 Abs. [place] 0.8 k/mm3 ()?? 02/13/2024 12:40 Abs. Eo 0.0 k/mm3 ()?? 02/13/2024 12:40 Abs. Baso 0.0 k/mm3 ()?? 02/13/2024 12:40 Neut % 78.6 % (High)?? 02/13/2024 12:40 Lymph % 14.1 % (Low)?? 02/13/2024 12:40 [place] % 6.3 % ()?? 02/13/2024 12:40 Eos % 0.2 % ()?? 02/13/2024 12:40 Baso % 0.2 % ()?? 02/13/2024 12:40 RBC Morphology MODERATE ()?? 02/13/2024 12:40 Platelet Estimate ADEQUATE ()?? 02/13/2024 12:40 Imm Gran 0.6 % ()?? 02/13/2024 12:40 Abs. Imm Gran 0.1 k/mm3 ()?? 02/13/2024 12:40 ?? CARDIAC Nt-Probnp 860 pg/mL (High)?? 02/13/2024 12:40 High Sensitivity Troponin (HSTnT) 32 ng/L (High)?? 02/13/2024 12:40 ?? CHEM GENERAL Sodium 130 mmol/L (Low)?? 02/13/2024 12:40 Potassium HEMOLYZED mmol/L ()?? 02/13/2024 12:40 Chloride 93 mmol/L (Low)?? 02/13/2024 12:40 Bicarbonate Level 21 mmol/L (Low)?? 02/13/2024 12:40 Anion Gap 16 ()?? 02/13/2024 12:40 Glucose Level 267 mg/dL (High)?? 02/13/2024 12:40 Glucose, POC 293 mg/dL (High)?? 02/13/2024 16:43 BUN 33 mg/dL (High)?? 02/13/2024 12:40 Creatinine-Blood 2.04 mg/dL (High)?? 02/13/2024 12:40 Estimated GFR Creatinine 33 ML/MIN/1.73 M2 ()?? 02/13/2024 12:40 Calcium 9.0 mg/dL ()?? 02/13/2024 12:40 Magnesium 1.6 mg/dL ()?? 02/13/2024 12:40 Protein, Total 7.3 Gm/dL ()?? 02/13/2024 12:40 Albumin 3.2 Gm/dL (Low)?? 02/13/2024 12:40 AG Ratio 0.8 ()?? 02/13/2024 12:40 Alkaline Phosphatase 177 units/L (High)?? 02/13/2024 12:40 Lipase 18 units/L ()?? 02/13/2024 12:40 AST (SGOT) 27 units/L ()?? 02/13/2024 12:40 ALT (SGPT) 12 units/L ()?? 02/13/2024 12:40 Bilirubin, Total 0.3 mg/dL ()?? 02/13/2024 12:40 Lactate 2.0 mmol/L ()?? 02/13/2024 12:40 ?? COAG INR 1.1 ()?? 02/13/2024 12:40 Protime (PT) 11.8 seconds (High)?? 02/13/2024 12:40 ?? HEME OTHER Hold Blue Top SPECIMEN DISCARDED AFTER 4 HOURS. ()?? 02/13/2024 12:40 ?? UA/URINALYSIS Appear/Color, Urine YELLOW ()?? 02/13/2024 14:00 Specific [place], Urine 1.015 ()?? 02/13/2024 14:00 pH, Urine 5.5 ()?? 02/13/2024 14:00 Albumin, Urine 2+ (Abnormal)?? 02/13/2024 14:00 Glucose, Urine TRACE (Abnormal)?? 02/13/2024 14:00 Ketones, Urine NEGATIVE ()?? 02/13/2024 14:00 Bilirubin, Urine NEGATIVE ()?? 02/13/2024 14:00 Hemoglobin, Urine 1+ (Abnormal)?? 02/13/2024 14:00 Nitrite, Urine NEGATIVE ()?? 02/13/2024 14:00 Leukocyte, Urine 3+ (Abnormal)?? 02/13/2024 14:00 Urobilinogen NORMAL mg/dL ()?? 02/13/2024 14:00 WBC's, Urine >182 /HPF (High)?? 02/13/2024 14:00 RBC's, Urine 10 /HPF (High)?? 02/13/2024 14:00 Bacteria HEAVY HPF (Abnormal)?? 02/13/2024 14:00 Hold Urine Culture Testing available 48 hours from time of collection. ()?? 02/13/2024 14:00 ?? VIROLOGY COVID-19 by RT-PCR NEGATIVE ()?? 02/13/2024 14:20 ? Microbiology ?? COVID-19 (Novel Coronavirus), Rapid PCR?? Completed?? Source: Nasal Body Site: Nose Collected Dt/Tm: 02/13/2024 14:03 Last Updated Dt/Tm: 02/13/2024 15:13 ? EKG study * Event Display: ECG 12-Lead Authored Date: Please click on pdf link to open report * Event Display: ECG 12-Lead Authored Date: Ventricular Rate: 94 BPM Atrial Rate: 94 BPM P-R Interval: 140 ms QRS Duration: 80 ms Q-T Interval: 384 ms QTC Calculation(Bazett): 480 ms P [place]: 31 degrees R [place]: 5 degrees T [place]: 39 degrees Sinus rhythm with Premature atrial complexes Nonspecific ST and T wave abnormality Prolonged QT Abnormal ECG When compared with ECG of 18-NOV-2023 06:39, Premature atrial complexes are now Present Nonspecific T wave abnormality now evident in Lateral leads Confirmed by Isaiah Mccloud ([id number]) on 02/14/2024 7:09:02 AM [place] Progress note * Torito Nicole RN: PERFORM, SIGN, VERIFY Event Display: [facility] Authored Date: Patient: ARGENTINA PIPER Age: 73 years Sex: Male : 1950 Associated Diagnoses: None Author: Torito Nicole RN Findings Problem Related to Alteration in Respiratory Function (new) : Alteration in Respiratory Function/new 02/15/2024 12:00 EDT Alteration in Resp Status Related to Pneumonia Goals & Outcomes, Respiratory Pt will maintain/resume baseline physical assessment, Pt will notdevelop complications r/t mechanical ventilation, Pt will maintain adequate nutritional intake, Pt will maintain/resume normal fluid/electrolyte balance, Pt will not develop complications r/t immobility, Pt will demonstrate proper technique w/self care procedures Interventions, Respiratory Assess/monitor tolerance to IV infusions; verify rate/dose, Monitor sputum color & consistency. Report changes to MD, Teach the proper use of inhalers, Teach Pt/caregiver Smoking cessation education, Teach tripod positioning to promote air exchange BH Goals/Interventions, Respiratory Yes Respiratory, Problem Start 02/13/2024 12:00 Reviewed Plan with, Respiratory Patient Patient Progression, Respiratory Patient progressing according to plan . Nursing Data Vital Signs : VITAL SIGNS SECTION 02/15/2024 7:00 EDT Temperature 98.0 DegF Temperature Route Oral Pulse Rate 74 bpm Respiratory Rate 18 br/min Systolic Blood Pressure 146 mm Hg H Diastolic Blood Pressure 73 mm Hg Blood pressure sites Arm, right Oxygen Saturation 98 % Mode of Delivery (Oxygen) Room air . * Elle Montgomery MD: MODIFY, PERFORM Event Display: Progress Note Hospital Authored Date: Patient: ??ARGENTINA PIPER ? Age:??73 Years?Sex:??Male?:??1950?? Subjective Overnight: No acute events overnight. ?? AM:Lab work this morning showed lateral leukocytosis at 13.7, normocytic anemia with drop in H&H to 7.9 from 9.3, persistent hyponatremia at 131 from 130, potassium 4.6, magnesium 1.7, creatinine2.18 from 2.04 BUN 35 from 33, PVCs ranging 170s to 90s.?? Viral respiratory panel positive for human metapneumovirus. ?? Interval:??We will de-escalate antibiotics, discontinue vancomycin as MRSA negative,??follow-up blood, sputum cultures, incentive spirometer??and Acapella ordered to help with secretions. ??Will callfacility and family to??better understand patient's baseline. ??Patient's a.m. POC poorly controlled??in the 290s, will add 4 units Lantus based on??supplementary lispro. ? Review of Systems Full review of systems was completed and is negative except as noted above Objective Measurements?? Height: 173 cm (02/14/24) Weight: 85.1 kg (02/13/24) Body Mass Index:??28.43 kg/m2??High (02/13/24) ? Vital Signs?? Temperature: 98 DegF (02/15/24 07:00:00) Temperature Route: Oral (02/15/24 07:00:00) Pulse Rate: 74 bpm (02/15/24 07:00:00) Respiratory Rate: 18 br/min (02/15/24 07:00:00) Systolic Blood Pressure:??146 mm Hg??High (02/15/24 07:00:00) Diastolic Blood Pressure: 73 mm Hg (02/15/24 07:00:00) Blood pressure sites: Arm, right (02/15/24 07:00:00) Pulse Pressure: 77 mm Hg (02/14/24 19:33:00) Oxygen Saturation: 98 % (02/15/24 07:00:00) Liters per Minute: 4 L/min (02/14/24 18:00:00) Mode of Delivery (Oxygen): Room air (02/15/24 07:00:00) Early Warning Score: 4 (02/15/24 11:02:08) ? Ventilator Settings?? No qualifying data available. ?? Intake/Output? 02/12 15:56 02/14 07:00 02/13 07:00 02/12 07:00 02/11 07:00 ?? 02/14 13:04 02/14 13:04 02/14 06:59 02/13 06:59 02/12 06:59 Intake ?600 ?240 ?360 ?0 ?0 Output ? 2025 ?400 ? 1300 ?325 ?0 Net Total ?-1425 ? -160 ? -940 ? -325 ?0 ? Physical Exam General:??No acute distress Respiratory:??Rales and rhonchi in the right lung base Cardiovascular:??RRR, S1 and S2 heard with no M/R/G. No JVD Abdomen:??Normal active bowel sounds, soft, non-tender, non-distended Musculoskeletal:??Moving all extremities??spontaneously,?Trace b/l pedal edema. Neurologic:??Alert & Oriented, L sided??weakness?? Skin:??Stage II pressure ulcer??in coccygeal region. _ Inpatient Medications Medications (35) Active SCHEDULED: (21) Albuterol/Ipratropium Inhalation Manju 3mL (Duoneb Inhalation Solution) ??1 vials, BAND Nebulizer, 4 times a day Apixaban 5 mg Tablet (Eliquis) ??5 mg, By Mouth, 2 times a day Atorvastatin 20 mg Tablet (atorvastatin 20 mg oral tablet) ??20 mg, By Mouth, Daily at bedtime Azithromycin 500 mg IVPB (Azithromycin IVPB) ??500 mg, IVPB, Every 24 hours Benztropine 1 mg Tablet (benztropine 1 mg oral tablet) ??1 mg, By Mouth, 2 times a day Breo Ellipta 100 mcg / 25 mcg Inhaler (Breo Ellipta 100 mcg-25 mcg Inhaler) ??1 puffs, Inhalation, Daily Ceftriaxone 1 Gm Inj (Ceftriaxone Inj) ??1 Gm, IVPB, Every 24 hours Finasteride 5 mg Tablet (finasteride 5 mg oral tablet) ??5 mg, By Mouth, Daily in AM Folic Acid 1 mg Tablet (folic acid 1 mg oral tablet) ??1 mg, By Mouth, Daily in AM Insulin Glargine 100 units/mL Inj (Lantus Inj) ??4 units 0.04 mL, Subcutaneous Injection, Daily at bedtime Insulin Lispro 100 units/mL Inj (Insulin LISPRO Sliding Scale) ??2-10 units, Subcutaneous Injection, 3 times a day before meals Isosorbide Mononitrate 30 mg ER Tablet (Imdur 30 mg oral tablet, extended release) ??30 mg, By Mouth, Daily in AM levETIRAcetam 500 mg/5mL Solu (levETIRAcetam Liquid) ??250 mg 2.5 mL, By Mouth, 2 times a day Levothyroxine 100 mcg Tablet (Synthroid 0.1 mg oral tablet) ??100 mcg, By Mouth, Daily Multivitamin Tablet ??1 tablet, By Mouth, Daily NaCl 0.9% Flush 3ml (NaCL 0.9% Flush) ??3 mL, IV Push, Every 8 hours Pantoprazole 40 mg EC Tablet (pantoprazole 40 mg oral delayed release tablet) ??40 mg, By Mouth, 2 times a day Risperidone 1 mg Tablet (risperiDONE 1 mg oral tablet) ??2 mg, By Mouth, 2 times a day Sucralfate 1 Gm Tablet (Carafate 1 gm oral tablet) ??1 Gm, By Mouth, 3 times a day Tamsulosin 0.4 mg Capsule (tamsulosin 0.4 mg oral capsule) ??0.8 mg, By Mouth, Daily at bedtime Thiamine 100 mg Tablet (thiamine 100 mg oral tablet) ??100 mg, By Mouth, Daily in AM CONTINUOUS: (0) PRN: (14) Acetaminophen 325 mg Tablet (Acetaminophen Tablet) ??650 mg, By Mouth, Every 4 hours Albuterol/Ipratropium Inhalation Manju 3mL (Duoneb Inhalation Solution) ??1 vials, BAND Nebulizer, Every 4 hours Dextromethorphan-Guaifenesin 20 mg-200 mg/10 mL Liqu UD [...] mg, Chew, 3 times a day ? Results Recent Labs BACTERIOLOGY MRSA PCR Result Negative, MRSA target DNA not detected. ()?? 02/14/2024 14:43 S Aureus ??PCR Result Negative, SA target DNA not detected. ()?? 02/14/2024 14:43 Blood Culture Results Preliminary report ()?? 02/13/2024 12:23 Blood Culture Isolate 1 Comment ()?? 02/13/2024 12:23 Blood Cult 2 Results Preliminary report ()?? 02/13/2024 12:40 Blood Culture 2 Isolate 1 Comment ()?? 02/13/2024 12:40 ?? BLOOD COUNT & DIFF WBC 12.2 k/mm3 (High)?? 02/15/2024 09:39 RBC 3.06 m/mm3 (Low)?? 02/15/2024 09:39 Hgb 8.1 Gm/dL (Low)?? 02/15/2024 09:39 Hct 25.3 % (Low)?? 02/15/2024 09:39 MCV 82.7 femtoliters ()?? 02/15/2024 09:39 MCH 26.5 pg (Low)?? 02/15/2024 09:39 MCHC 32.0 g/dL (Low)?? 02/15/2024 09:39 Platelet Count 290 k/mm3 ()?? 02/15/2024 09:39 RDW-SD 50.9 femtoliters (High)?? 02/15/2024 09:39 MPV 9.8 femtoliters ()?? 02/15/2024 09:39 Nucleated RBC (Automated) 0.2 #/100 WBC'S ()?? 02/15/2024 09:39 Abs. NRBC 0.0 k/mm3 ()?? 02/15/2024 09:39 Abs. Neut 8.6 k/mm3 (High)?? 02/15/2024 09:39 Abs. Lymph 2.4 k/mm3 ()?? 02/15/2024 09:39 Abs. [place] 0.8 k/mm3 ()?? 02/15/2024 09:39 Abs. Eo 0.1 k/mm3 ()?? 02/15/2024 09:39 Abs. Baso 0.0 k/mm3 ()?? 02/15/2024 09:39 Neut % 70.3 % ()?? 02/15/2024 09:39 Lymph % 19.9 % ()?? 02/15/2024 09:39 [place] % 6.2 % ()?? 02/15/2024 09:39 Eos % 0.9 % ()?? 02/15/2024 09:39 Baso % 0.2 % ()?? 02/15/2024 09:39 Metamyelocyte % 3.5 % (High)?? 02/14/2024 00:46 Band % 29.8 % (High)?? 02/14/2024 00:46 RBC Morphology MODERATE ()?? 02/14/2024 00:46 Platelet Estimate ADEQUATE ()?? 02/14/2024 00:46 Imm Gran 2.5 % ()?? 02/15/2024 09:39 Abs. Imm Gran 0.3 k/mm3 ()?? 02/15/2024 09:39 ?? CHEM GENERAL Sodium 132 mmol/L (Low)?? 02/15/2024 09:39 Potassium 5.0 mmol/L ()?? 02/15/2024 09:39 Chloride 98 mmol/L ()?? 02/15/2024 09:39 Bicarbonate Level 23 mmol/L ()?? 02/15/2024 09:39 Anion Gap 11 ()?? 02/15/2024 09:39 Glucose Level 263 mg/dL (High)?? 02/14/2024 00:46 Glucose, POC 273 mg/dL (High)?? 02/15/2024 11:00 Hemoglobin A1C (Monitoring) 8.4 % (High)?? 02/15/2024 09:39 BUN 38 mg/dL (High)?? 02/15/2024 09:39 Creatinine-Blood 2.28 mg/dL (High)?? 02/15/2024 09:39 Estimated GFR Creatinine 29 ML/MIN/1.73 M2 ()?? 02/15/2024 09:39 Calcium 8.6 mg/dL ()?? 02/14/2024 00:46 Phosphorus 3.5 mg/dL ()?? 02/14/2024 00:46 Magnesium 1.7 mg/dL ()?? 02/14/2024 00:46 ?? ENDOCRINE/TUMOR MARKER TSH 1.79 uIU/mL ()?? 02/14/2024 00:46 ?? URINE OTHER Sodium, Urine Random 20 mmol/L ()?? 02/14/2024 14:43 Osmolality, Urine Random 415 mOsm/kg ()?? 02/14/2024 14:43 ?? VIROLOGY Adenovirus by PCR NEGATIVE ()?? 02/14/2024 14:43 Coronavirus 229E by PCR (not COVID-19) NEGATIVE ()?? 02/14/2024 14:43 Coronavirus HKU1 by PCR (not COVID-19) NEGATIVE ()?? 02/14/2024 14:43 Coronavirus NL63 by PCR (not COVID-19) NEGATIVE ()?? 02/14/2024 14:43 Coronavirus OC43 by PCR (not COVID-19) NEGATIVE ()?? 02/14/2024 14:43 Human Metapneumovirus by PCR POSITIVE (Abnormal)?? 02/14/2024 14:43 Rhinovirus/Enterovirus by PCR NEGATIVE ()?? 02/14/2024 14:43 Influenza A by PCR NEGATIVE ()?? 02/14/2024 14:43 Influenza B by PCR NEGATIVE ()?? 02/14/2024 14:43 Parainfluenza 1 by PCR NEGATIVE ()?? 02/14/2024 14:43 Parainfluenza 2 by PCR NEGATIVE ()?? 02/14/2024 14:43 Parainfluenza 3 by PCR NEGATIVE ()?? 02/14/2024 14:43 Parainfluenza 4 by PCR NEGATIVE ()?? 02/14/2024 14:43 RSV by PCR NEGATIVE ()?? 02/14/2024 14:43 Bordetella Pertussis by PCR NEGATIVE ()?? 02/14/2024 14:43 Chlamydophila Pneumoniae by PCR NEGATIVE ()?? 02/14/2024 14:43 Mycoplasma Pneumoniae by PCR NEGATIVE ()?? 02/14/2024 14:43 COVID-19 (SARS-CoV-2) by PCR NEGATIVE ()?? 02/14/2024 14:43 Bordetella Parapertussis by PCR NEGATIVE ()?? 02/14/2024 14:43 ? Abnormal Labs ?? BACTERIOLOGY MRSA PCR Result?Negative, MRSA target DNA not detected. ()?02/14/2024 14:43 S Aureus PCR Result?Negative, SA target DNA not detected. ()?02/14/2024 14:43 ?? BLOOD COUNT & DIFF Abs. Imm Gran?0.3 k/mm3 ()?02/15/2024 09:39 Abs. NRBC?0.0 k/mm3 ()?02/15/2024 09:39 Abs. Neut?8.6 k/mm3 (High)?02/15/2024 09:39 Hct?25.3 % (Low)?02/15/2024 09:39 Hgb?8.1 Gm/dL (Low)?02/15/2024 09:39 Imm Gran?2.5 % ()?02/15/2024 09:39 MCH?26.5 pg (Low)?02/15/2024 09:39 MCHC?32.0 g/dL (Low)?02/15/2024 09:39 Nucleated RBC (Automated)?0.2 #/100 WBC'S ()?02/15/2024 09:39 RBC?3.06 m/mm3 (Low)?02/15/2024 09:39 RDW-SD?50.9 femtoliters (High)?02/15/2024 09:39 WBC?12.2 k/mm3 (High)?02/15/2024 09:39 ?? CHEM GENERAL BUN?38 mg/dL (High)?02/15/2024 09:39 Creatinine-Blood?2.28 mg/dL (High)?02/15/2024 09:39 Estimated GFR Creatinine?29 ML/MIN/1.73 M2 ()?02/15/2024 09:39 Glucose, POC?273 mg/dL (High)?02/15/2024 11:00 Hemoglobin A1C (Monitoring)?8.4 % (High)?02/15/2024 09:39 Sodium?132 mmol/L (Low)?02/15/2024 09:39 ?? URINE OTHER Sodium, Urine Random?20 mmol/L ()?02/14/2024 14:43 ?? VIROLOGY Adenovirus by PCR?NEGATIVE ()?02/14/2024 14:43 Bordetella Parapertussis by PCR?NEGATIVE () ??02/14/2024 14:43 Bordetella Pertussis by PCR?NEGATIVE ()?02/14/2024 14:43 COVID-19 (SARS-CoV-2) by PCR?NEGATIVE ()?02/14/2024 14:43 Chlamydophila Pneumoniae by PCR?NEGATIVE () ??02/14/2024 14:43 Coronavirus 229E by PCR (not COVID- 19)?NEGATIVE () ??02/14/2024 14:43 Coronavirus HKU1 by PCR (not COVID- 19)?NEGATIVE () ??02/14/2024 14:43 Coronavirus NL63 by PCR (not COVID- 19)?NEGATIVE () ??02/14/2024 14:43 Coronavirus OC43 by PCR (not COVID- 19)?NEGATIVE () ??02/14/2024 14:43 Human Metapneumovirus by PCR?POSITIVE (Abnormal) ??02/14/2024 14:43 Influenza A by PCR?NEGATIVE ()?02/14/2024 14:43 Influenza B by PCR?NEGATIVE ()?02/14/2024 14:43 Mycoplasma Pneumoniae by PCR?NEGATIVE () ??02/14/2024 14:43 Parainfluenza 1 by PCR?NEGATIVE ()?02/14/2024 14:43 Parainfluenza 2 by PCR?NEGATIVE ()?02/14/2024 14:43 Parainfluenza 3 by PCR?NEGATIVE ()?02/14/2024 14:43 Parainfluenza 4 by PCR?NEGATIVE ()?02/14/2024 14:43 RSV by PCR?NEGATIVE ()?02/14/2024 14:43 Rhinovirus/Enterovirus by PCR?NEGATIVE ()?02/14/2024 14:43 ?? Note: Critical results are displayed in red. ? Cardiology Labs Nt-Probnp:??860 pg/mL??High (02/13/24 12:40:00) High Sensitivity Troponin (HSTnT):??32 ng/L??High (02/13/24 12:40:00) ?? Assessment/Plan ?? 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 Acute hypoxic respiratory failure (J96.01):??persistent, improving Leucocytosis (D72.829):?? High anion gap metabolic acidosis (E87.29):??-resolving Sepsis (A41.9):??- resolved?? Multifocal pneumonia (J18.9):??-?? Chronic obstructive pulmonary disease (J44.9):??-?? Patient presented with worsening cough,??hypoxia, hypothermia, leukocytosis,??fulfill sepsis criteria Possibly mild exacerbation??in setting of??pneumonia; will treat pneumonia,??otherwise continue Breo??and as needed and scheduled DuoNebs while inpatient,??no need for steroids at this time?? Urine and blood cultures sent from ED; received??IV ceftriaxone 1 g in the ED ?? Plan:? Discontinue vancomycin, MRSA swab negative ?Continue IV ceftriaxone and azithromycin ??? Follow-up blood cultures,??sputum culture, urinary streptococcal and Legionella antigen ?Continue oxygen therapy to keep O2 sats 92-94 ?Chest PT, incentive spirometer, Acapella ?? History of CVA with residual deficit (I69.30):?? Expressive aphasia (R47.01):?? 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 Plan: ??? Call rehab/family to establish patient's baseline ?Continue home Risperdal, benztropine ?Delirium precautions ?Dysphagia diet per facility ?? Chronic, Stable or Resolved Conditions: Hypothyroidism (E03.9):??-??Continue home levothyroxine.?TSH in level 179 BPH (benign prostatic hyperplasia) (N40.0):??-Continue on Flomax, finasteride Anemia in chronic kidney disease (N18.9):??Continue home folic acid and iron supplementation GERD??(K21.9):??-??Continue PPI Pressure ulcer of coccygeal region, stage 2 (L89.152):??-??Wound care, wound RN consult Elevated proBNP:??Clinically not in heart failure Elevated trops:??EKG nonischemic, patient chest pain-free,??Trop 32;??likely in setting of demand,??decreased renal clearance.?? Continue telemonitoring. Atrial fibrillation (I48.91):??-Rate well-controlled,??continue home Eliquis?? Seizure disorder (G40.909):??Continue home Keppra Hypertension (I10):??Continue home antihypertensives Type 2 diabetes mellitus (E11.9):??Insulin sliding scale, as needed hypoglycemia sugars.?A.m. POC is poorly controlled, add 4 units of Lantus CKD (chronic kidney disease) stage 4, GFR 15-29 ml/min (N18.4):??Baseline creatinine around 3.0, currently creatinine??2.1; avoid nephrotoxic agents, bladder scan, renally dose medications ?? Quality Measures DVT prophylaxis:on Eliquis?? Diet:??Dysphagia per facility Code Status:FULL ? Patient case and plan discussed with ??[place] ? Elle Montgomery MD ?Internal Medicine PGY-2? #[id number] ?This note was accomplished using [employer] software. Despite my efforts at performing a careful and accurate dictation, this program is prone to speech recognition errors which may result in inaccurate documentation. If clinical questions should arise, please feel free to contact me. ?? * Lashell Anderson DO: PERFORM Event Display: Progress Note Hospital Authored Date: I saw and examined the patient with the resident team and reviewed the chart on the day of service.??I have discussed the case and its management??with the resident as documented in the resident note on the day of service.??I agree with the resident's note and plan as documented.?? * Janice Lezama RN: PERFORM, SIGN, VERIFY Event Display: Progress Note Hospital Authored Date: Patient: ARGENTINA PIPER Age: 73 years Sex: Male : 1950 Associated Diagnoses: None Author: Janice Lezama RN Findings Problem Related to Alteration in Respiratory Function (new) : Alteration in Respiratory Function/new 02/14/2024 17:00 EDT Alteration in Resp Status Related to Pneumonia Goals & Outcomes, Respiratory Pt will maintain/resume baseline physical assessment, Pt will notdevelop complications r/t mechanical ventilation, Pt will maintain adequate nutritional intake, Pt will maintain/resume normal fluid/electrolyte balance, Pt will not develop complications r/t immobility, Pt will demonstrate proper technique w/self care procedures Interventions, Respiratory Assess/monitor tolerance to IV infusions; verify rate/dose, Assess for and report S&S of respiratory distress, Position for comfort & optimal oxygenation, Chest tube drainage, maintain drainage/suction as ordered, Initiate pulmonary rehab nurse consult, Monitor sputum color & consistency. Report changes to MD VAN Goals/Interventions, Respiratory Yes Respiratory, Problem Start 02/13/2024 12:00 Reviewed Plan with, Respiratory Patient Patient Progression, Respiratory Patient not progressing according to plan . Evaluation Pt AAOx2, very noncompliant with care. Spent over 40 minutes in his room getting him to take his meds, do POC and get vitals on him. He speaks south african with primary languarge being creole, aphasia andslurred speech, thick secretions in mouth, has no difficulties swallowing liquids or pureed food. Noticed pt is slightly paranoid, told me he thinks his roommate is trying to turn me against him, etc. NSR on the monitor HR 70s-80s, on 6L NC- some wheezing in lower lobes. POCs high between 172 and 292. Pt remains BF with very little movment in extremities and lack of coordination- is a 1:1 feed. POintake is adequate although liquid intake is poor. Has indwelling urinary catheter- placed in the ED 02/12 at 1400. Complains of slight neck pain that is resolved with repositioning, has a stage 2 pressure injury on his sacrum- pt adamently refused woundcare, so turned more often throughout shift. Gave abx through IV, sent a nasal swab and urine specimen to lab, returned positive for HMPV. In the process of getting pt his own room and placing him on contact precautions. Pt temp remains stable, pt in bed with bed in lowest position, bed alarm on and call cabrera in reach. . . Note * Tammy Sheriff RN: PERFORM Event Display: Discharge/Transfer Note Hospital Authored Date: Nursing Discharge Note Entered On: 02/16/2024 11:51 EDT Performed On: 02/16/2024 11:51 EDT by Tammy Sheriff RN Nursing Discharge Note 2 Discharge Time : 02/16/2024 12:20 EDT Tammy Sheriff RN - 02/16/2024 12:20 EDT Discharge Level of Care at Discharge : long-term facility Discharge Nursing Homes/Rehab Facilities : [facility] [phone] Patient Left Unit Via : Ambulance Patient Accompanied Off Unit with : Ambulance/Chair Van Personnel Handover Given to Transport Personnel : Yes DC Instructions Provided & Signed by Pt : No Patient Understands D/C Instructions : No Patient Instructions Discharge Signed : No Did Pt have Specialty Bed or Wound Vac : No Tammy Sheriff RN - 02/16/2024 11:51 EDT * Lashell Anderson DO: MODIFY Lashell Anderson DO: MODIFY, MODIFY, MODIFY, MODIFY, MODIFY, MODIFY, MODIFY, MODIFY Event Display: Discharge/Transfer Note Hospital Authored Date: Patient: ??ARGENTINA PIPER ? Age:??73 Years?Sex:??Male?:??1950?? Patient Information Discharge Location: W4 Primary Care Physician: Not on Staff, PCP Admit Date/Time: 02/13/24 15:56 Discharge Disposition Discharge Disposition: Residential Facility/Rehab Discharge Diagnosis Atrial fibrillation (I48.91) Chronic anticoagulation (Z79.01) GERD (gastroesophageal reflux disease) (K21.9) Dysphagia (R13.10) Hypothyroidism (E03.9) Schizophrenia (F20.9) Seizure disorder (G40.909) Type 2 diabetes mellitus (E11.9) Chronic obstructive pulmonary disease (J44.9) Hypothermia (T68.XXXA) Sepsis (A41.9) Leucocytosis (D72.829) High anion gap metabolic acidosis (E87.29) CKD (chronic kidney disease) stage 4, GFR 15-29 ml/min (N18.4) Cognitive impairment (R41.89) AD (Alzheimer's disease) (G30.9) History of CVA with residual deficit (I69.30) Expressive aphasia (R47.01) Dementia (F03.90) Hypertension (I10) BPH (benign prostatic hyperplasia) (N40.0) Multifocal pneumonia (J18.9) Acute hypoxic respiratory failure (J96.01) Anemia in chronic kidney disease (N18.9) Pressure ulcer of coccygeal region, stage 2 (L89.152) Emotional lability (R45.86) Xerosis cutis (L85.3) Wheelchair dependent (Z99.3) 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 Medications Started Insulin Glargine (Lantus Inj)?0.04?Milliliter?4?unit(s)?Subcutaneous Injection?Daily at bedtime Amoxicillin-Clavulanate (Augmentin 500 Tablet)?1?tablet?By Mouth?2 times a day Medications Discontinued None. Doses Changed Ferrous sulfate changed from every day??to every other day PCP Follow-Up/Heads-Up 1. Patient noted to have elevated sugars during this admission, started on 4 units of Lantus which can be used briefly until sugars improve. 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 Per facility patient was noted to be not cooperative??with lab draws, consider??alternate oral antihyperglycemic??to avoid??need of insulin 3. Please encourage patient to complete??4-day course of Augmentin 4. 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 ??Patient was weaned off oxygen, treated with??broad-spectrum IV antibiotics prior to discharge patient's antibiotics were transitioned from IV to p.o. patient was also found to have UTI and was treated with IV antibiotics. ??Prior to discharge patient's IV antibiotics were transitioned to p.o.?? Perpatient's facility he is alert and oriented??x 2-3 at baseline, is able to make his needs known, requires assistance for all??ADLs and IADLs.?? Patient??on day of discharge was noted to be at baseline??mentation, cooperating with care.?? On day of discharge patient is hemodynamically stable, ready to be discharged back to rehab with the following recommendations. ?? Acute hypoxic respiratory failure (J96.01):??persistent, improving Leucocytosis (D72.829):?? High anion gap metabolic acidosis (E87.29):??-resolving Sepsis (A41.9):??- resolved?? Multifocal pneumonia (J18.9):??-?? Chronic obstructive pulmonary disease (J44.9):?? Urinary tract infection Patient presented with worsening cough,??hypoxia, hypothermia, leukocytosis,??fulfill sepsis criteria Possibly mild exacerbation??in setting of??pneumonia; will treat pneumonia,??otherwise continue Breo??and as needed and scheduled DuoNebs while inpatient,??no need for steroids at this time?? Urine and blood cultures sent from ED; received??IV ceftriaxone 1 g in the ED ?? Plan:? Augmentin x4 day to complete 7x day course for pneumonia ??? Follow-up blood cultures,??sputum culture ??? Patient??passed voiding trial, catheter removed prior to discharge ?? History of CVA with residual deficit (I69.30):?? Expressive aphasia (R47.01):?? 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 Plan: ?Continue home Risperdal, benztropine ?Delirium precautions ?Dysphagia diet per facility ?? Chronic, Stable or Resolved Conditions: Hypothyroidism (E03.9):??-Continue home levothyroxine.?TSH in level 1.79 BPH (benign prostatic hyperplasia) (N40.0):??Continue on Flomax, finasteride Anemia in chronic kidney disease (N18.9):??Continue home folic acid and iron supplementation GERD??(K21.9):??Continue PPI Pressure ulcer of coccygeal region, stage 2 (L89.152):??Wound care, wound RN consult Elevated proBNP:??Clinically not in heart failure Elevated trops:??EKG nonischemic, patient chest pain-free,??Trop 32;??likely in setting of demand,??decreased renal clearance.?? Continue telemonitoring. Atrial fibrillation (I48.91):??Rate well-controlled,??continue home Eliquis?? Seizure disorder (G40.909):??Continue home Keppra Hypertension (I10):??Continue home antihypertensives Type 2 diabetes mellitus (E11.9):??Insulin sliding scale, as needed hypoglycemia sugars.?A.m. POC is poorly controlled, add 4 units of Lantus which can be used briefly until sugars improve. As pt not wanting certain treatments done, insulin may not be the best option for him jail A1c 8.6%, consider oral agent depending on renal function CKD (chronic kidney disease) stage 4, GFR 15-29 ml/min (N18.4):??Baseline creatinine around 3.0, currently creatinine??2.1; avoid nephrotoxic agents, bladder scan, renally dose medications Objective Measurements?? Height: 173 cm (02/16/24) Weight: 85.1 kg (02/13/24) Body Mass Index:??28.43 kg/m2??High (02/13/24) ? Vital Signs?? Temperature: 98 DegF (02/16/24 03:07:00) Temperature Route: Oral (02/16/24 03:07:00) Pulse Rate: 68 bpm (02/16/24 08:51:00) Respiratory Rate: 18 br/min (02/16/24 08:51:00) Systolic Blood Pressure:??140 mm Hg??High (02/16/24 08:51:00) Diastolic Blood Pressure: 62 mm Hg (02/16/24 08:51:00) Blood pressure sites: Arm, left (02/16/24 08:51:00) Mean Arterial Pressure: 88 mm Hg (02/16/24 08:51:00) Pulse Pressure: 78 mm Hg (02/16/24 08:51:00) Oxygen Saturation: 97 % (02/16/24 08:51:00) Mode of Delivery (Oxygen): Room air (02/16/24 08:51:00) Early Warning Score: 1 (02/16/24 08:52:18) ? . Physical Exam General:??No acute distress Respiratory:??Clear to auscultation, no increased work of breathing Cardiovascular:??RRR, S1 and S2 heard with no M/R/G. No JVD Abdomen:??Normal active bowel sounds, soft, non-tender, non-distended Musculoskeletal:??Moving all extremities??spontaneously,?Trace b/l pedal edema. Neurologic:??Alert & Oriented, L sided??weakness?? Skin:??Stage II pressure ulcer??in coccygeal region. Patient Education Titles [employer] Patient Education - Community-Acquired Pneumonia in Adults?? [employer] Patient Education - Amoxicillin/Clavulanate Oral Tablet?? Follow-Up Appointments Added Follow Up ?Time Frame ?Comments Not on Staff, PCP?1 week?Please call??to establish a PCP Patient Instructions You presented to [facility] for an further [facility]entiary facility for concerns of pneumonia.?? The doctors in the emergency department did some lab work and imaging.?? Youwere then admitted to the hospital for further evaluation management.?? The results of these test showed that you have an infection in your lungs.?? You were treated for this infection with IV antibiotics during your hospital admission. Admission we made some changes to your medications.?? Please find these things below.?? Please take your medications as prescribed.?Should you continue to experience any worsening chest pain, shortness of breath, cough, fevers, confusion please seek medical care soon as possible. ?? Medications Started Insulin Glargine?? 4?unit(s)?Subcutaneous Injection?Daily at bedtime Amoxicillin-Clavulanate??1?tablet?By Mouth?2 times a day ?? Medications Discontinued None. ?? Doses Changed Ferrous sulfate changed from every day??to every other day Home Health Face to Face ^[facility] Results Discharge Labs BACTERIOLOGY MRSA PCR Result Negative, MRSA target DNA not detected. ()?? 02/14/2024 14:43 S Aureus ??PCR Result Negative, SA target DNA not detected. ()?? 02/14/2024 14:43 Urine Culture Results Preliminary report (Abnormal)?? 02/13/2024 14:00 Blood Culture Results Preliminary report ()?? 02/13/2024 12:23 Blood Culture Specimen Source BLOOD ()?? 02/13/2024 12:23 Blood Culture Isolate 1 Comment ()?? 02/13/2024 12:23 Blood Cult 2 Results Preliminary report ()?? 02/13/2024 12:40 Blood Culture 2 Specimen Source BLOOD ()?? 02/13/2024 12:40 Blood Culture 2 Isolate 1 Comment ()?? 02/13/2024 12:40 ? BLOOD COUNT & DIFF WBC 12.2 k/mm3 (High)?? 02/15/2024 09:39 RBC 3.06 m/mm3 (Low)?? 02/15/2024 09:39 Hgb 8.1 Gm/dL (Low)?? 02/15/2024 09:39 Hct 25.3 % (Low)?? 02/15/2024 09:39 MCV 82.7 femtoliters ()?? 02/15/2024 09:39 MCH 26.5 pg (Low)?? 02/15/2024 09:39 MCHC 32.0 g/dL (Low)?? 02/15/2024 09:39 Platelet Count 290 k/mm3 ()?? 02/15/2024 09:39 RDW-SD 50.9 femtoliters (High)?? 02/15/2024 09:39 MPV 9.8 femtoliters ()?? 02/15/2024 09:39 Nucleated RBC (Automated) 0.2 #/100 WBC'S ()?? 02/15/2024 09:39 Abs. NRBC 0.0 k/mm3 ()?? 02/15/2024 09:39 Abs. Neut 8.6 k/mm3 (High)?? 02/15/2024 09:39 Abs. Lymph 2.4 k/mm3 ()?? 02/15/2024 09:39 Abs. [place] 0.8 k/mm3 ()?? 02/15/2024 09:39 Abs. Eo 0.1 k/mm3 ()?? 02/15/2024 09:39 Abs. Baso 0.0 k/mm3 ()?? 02/15/2024 09:39 Neut % 70.3 % ()?? 02/15/2024 09:39 Lymph % 19.9 % ()?? 02/15/2024 09:39 [place] % 6.2 % ()?? 02/15/2024 09:39 Eos % 0.9 % ()?? 02/15/2024 09:39 Baso % 0.2 % ()?? 02/15/2024 09:39 Metamyelocyte % 3.5 % (High)?? 02/14/2024 00:46 Band % 29.8 % (High)?? 02/14/2024 00:46 RBC Morphology MODERATE ()?? 02/14/2024 00:46 Platelet Estimate ADEQUATE ()?? 02/14/2024 00:46 Imm Gran 2.5 % ()?? 02/15/2024 09:39 Abs. Imm Gran 0.3 k/mm3 ()?? 02/15/2024 09:39 ?? CARDIAC Nt-Probnp 860 pg/mL (High)?? 02/13/2024 12:40 High Sensitivity Troponin (HSTnT) 32 ng/L (High)?? 02/13/2024 12:40 ?? CHEM GENERAL Sodium 132 mmol/L (Low)?? 02/15/2024 09:39 Potassium 5.0 mmol/L ()?? 02/15/2024 09:39 Chloride 98 mmol/L ()?? 02/15/2024 09:39 Bicarbonate Level 23 mmol/L ()?? 02/15/2024 09:39 Anion Gap 11 ()?? 02/15/2024 09:39 Glucose Level 263 mg/dL (High)?? 02/14/2024 00:46 Glucose, POC 203 mg/dL (High)?? 02/16/2024 08:38 Hemoglobin A1C (Monitoring) 8.4 % (High)?? 02/15/2024 09:39 BUN 38 mg/dL (High)?? 02/15/2024 09:39 Creatinine-Blood 2.28 mg/dL (High)?? 02/15/2024 09:39 Estimated GFR Creatinine 29 ML/MIN/1.73 M2 ()?? 02/15/2024 09:39 Calcium 8.6 mg/dL ()?? 02/14/2024 00:46 Phosphorus 3.5 mg/dL ()?? 02/14/2024 00:46 Magnesium 1.7 mg/dL ()?? 02/14/2024 00:46 Protein, Total 7.3 Gm/dL ()?? 02/13/2024 12:40 Albumin 3.2 Gm/dL (Low)?? 02/13/2024 12:40 AG Ratio 0.8 ()?? 02/13/2024 12:40 Alkaline Phosphatase 177 units/L (High)?? 02/13/2024 12:40 Lipase 18 units/L ()?? 02/13/2024 12:40 AST (SGOT) 27 units/L ()?? 02/13/2024 12:40 ALT (SGPT) 12 units/L ()?? 02/13/2024 12:40 Bilirubin, Total 0.3 mg/dL ()?? 02/13/2024 12:40 Lactate 2.0 mmol/L ()?? 02/13/2024 12:40 ? COAG INR 1.1 ()?? 02/13/2024 12:40 Protime (PT) 11.8 seconds (High)?? 02/13/2024 12:40 ?? ENDOCRINE/TUMOR MARKER TSH 1.79 uIU/mL ()?? 02/14/2024 00:46 ? HEME OTHER Hold Blue Top SPECIMEN DISCARDED AFTER 4 HOURS. ()?? 02/13/2024 12:40 ? SEROLOGY INF DISEASE Mycoplasma pneumoniae, IgM <770 ()?? 02/13/2024 12:40 ? UA/URINALYSIS Appear/Color, Urine YELLOW ()?? 02/13/2024 14:00 Specific [place], Urine 1.015 ()?? 02/13/2024 14:00 pH, Urine 5.5 ()?? 02/13/2024 14:00 Albumin, Urine 2+ (Abnormal)?? 02/13/2024 14:00 Glucose, Urine TRACE (Abnormal)?? 02/13/2024 14:00 Ketones, Urine NEGATIVE ()?? 02/13/2024 14:00 Bilirubin, Urine NEGATIVE ()?? 02/13/2024 14:00 Hemoglobin, Urine 1+ (Abnormal)?? 02/13/2024 14:00 Nitrite, Urine NEGATIVE ()?? 02/13/2024 14:00 Leukocyte, Urine 3+ (Abnormal)?? 02/13/2024 14:00 Urobilinogen NORMAL mg/dL ()?? 02/13/2024 14:00 WBC's, Urine >182 /HPF (High)?? 02/13/2024 14:00 RBC's, Urine 10 /HPF (High)?? 02/13/2024 14:00 Bacteria HEAVY HPF (Abnormal)?? 02/13/2024 14:00 Hold Urine Culture Testing available 48 hours from time of collection. ()?? 02/13/2024 14:00 ? URINE OTHER Sodium, Urine Random 20 mmol/L ()?? 02/14/2024 14:43 Osmolality, Urine Random 415 mOsm/kg ()?? 02/14/2024 14:43 Urine Culture Specimen Source URINE ()?? 02/13/2024 14:00 Urine Culture Isolate 1 Escherichia coli (Abnormal)?? 02/13/2024 14:00 ?? VIROLOGY Adenovirus by PCR NEGATIVE ()?? 02/14/2024 14:43 Coronavirus 229E by PCR (not COVID-19) NEGATIVE ()?? 02/14/2024 14:43 Coronavirus HKU1 by PCR (not COVID-19) NEGATIVE ()?? 02/14/2024 14:43 Coronavirus NL63 by PCR (not COVID-19) NEGATIVE ()?? 02/14/2024 14:43 Coronavirus OC43 by PCR (not COVID-19) NEGATIVE ()?? 02/14/2024 14:43 Human Metapneumovirus by PCR POSITIVE (Abnormal)?? 02/14/2024 14:43 Rhinovirus/Enterovirus by PCR NEGATIVE ()?? 02/14/2024 14:43 Influenza A by PCR NEGATIVE ()?? 02/14/2024 14:43 Influenza B by PCR NEGATIVE ()?? 02/14/2024 14:43 Parainfluenza 1 by PCR NEGATIVE ()?? 02/14/2024 14:43 Parainfluenza 2 by PCR NEGATIVE ()?? 02/14/2024 14:43 Parainfluenza 3 by PCR NEGATIVE ()?? 02/14/2024 14:43 Parainfluenza 4 by PCR NEGATIVE ()?? 02/14/2024 14:43 RSV by PCR NEGATIVE ()?? 02/14/2024 14:43 Bordetella Pertussis by PCR NEGATIVE ()?? 02/14/2024 14:43 Chlamydophila Pneumoniae by PCR NEGATIVE ()?? 02/14/2024 14:43 Mycoplasma Pneumoniae by PCR NEGATIVE ()?? 02/14/2024 14:43 COVID-19 by RT-PCR NEGATIVE ()?? 02/13/2024 14:20 COVID-19 (SARS-CoV-2) by PCR NEGATIVE ()?? 02/14/2024 14:43 Bordetella Parapertussis by PCR NEGATIVE ()?? 02/14/2024 14:43 ? Microbiology ?? Respiratory Pathogen PCR with COVID-19?? Completed?? Source: Nasopharyngeal Swab Body Site: Nasopharyngeal Collected Dt/Tm: 02/14/2024 14:41 Last Updated Dt/Tm: 02/14/2024 16:06 ?? MRSA/MSSA PCR Nasal Swab?? Completed?? Source: Swab Body Site: Nose Collected Dt/Tm: 02/14/2024 14:41 Last Updated Dt/Tm: 02/14/2024 17:54 ?? COVID-19 (Novel Coronavirus), Rapid PCR?? Completed?? Source: Nasal Body Site: Nose Collected Dt/Tm: 02/13/2024 14:03 Last Updated Dt/Tm: 02/13/2024 15:13 ?? Blood Culture 2 Results?? Completed?? Source: Blood Body Site: ?? Collected Dt/Tm: 02/13/2024 12:40 Last Updated Dt/Tm: 02/14/2024 18:11 ?? Blood Culture?? Completed?? Source: Blood Body Site: ?? Collected Dt/Tm: 02/13/2024 12:23 Last Updated Dt/Tm: 02/14/2024 18:11 ?? Blood Culture #2?? Completed?? Source: Blood Body Site: ?? Collected Dt/Tm: 02/13/2024 12:23 Last Updated Dt/Tm: 02/14/2024 18:11 ?? Blood Culture Result?? Completed?? Source: Blood Body Site: ?? Collected Dt/Tm: 02/13/2024 12:23 Last Updated Dt/Tm: 02/14/2024 18:11 ? Imaging(s) ?Chest Portable ?? 02/13/2024 12:52??by Mary Carmen Walsh MD ?IMPRESSION: ?? Multiple focal opacities, could represent pneumonia in the appropriate clinical setting. ?? I have personally reviewed the images and I agree with this report. ? 35_ minutes spent on discharge ? Patient case and plan discussed with Dr.??Monica ? Elle Montgomery MD ?Internal Medicine PGY-2? #[id number] ?This note was accomplished using [employer] software. Despite my efforts at performing a careful and accurate dictation, this program is prone to speech recognition errors which may result in inaccurate documentation. If clinical questions should arise, please feel free to contact me. * Lashell Anderson DO: PERFORM Event Display: Discharge/Transfer Note Hospital Authored Date: I saw and examined the patient with the resident team and reviewed the chart on the day of service.??I have discussed the case and its management??with the resident as documented in the resident note on the day of service.??I agree with the resident's note and plan as documented.?? * Tammy Caba RN: PERFORM, SIGN, VERIFY Event Display: Case Management Discharge Plan Authored Date: Patient: ARGENTINA PIPER Age: 73 years Sex: Male : 1950 Associated Diagnoses: None Author: Tammy Caba RN Discharge Plan Case Management Discharge Plan : Case Management Discharge Plan Data 02/16/2024 11:34 EDT Discharge Level of Care at Discharge long-term facility Discharge Nursing Homes/Rehab Facilities [facility] [phone] Discharge Transportation Arranged [facility] [address] [facility] [id number] [phone] Discharge Arranged Transport Date/Time 02/16/2024 12:00 Mode of Transportation Arranged Ambulance Service Categories #1 Residential * Tammy Sheriff RN: PERFORM Event Display: Patient Education/Instruction Authored Date: Inpatient Adult Discharge Instructions. [address] [address] Name: ARGENTINA PIPER : 1950?? Visit: 02/13/2024 15:56?? Current Date: 02/16/2024 11:29 ?? Account: [id number]?? Inpatient Adult Discharge Instructions We would like [...] and their families. Surveys are administered by [employer] ?? If further treatment with your primary care physician or another doctor is recommended, it is important for you to keep the appointment. Call your primary care physician or return to the Emergency Department immediately if your condition worsens, fails to improve, or new symptoms develop. If you need to find a doctor, you can call [facility] [employer] for a referral at [phone] or toll free at [phone]) or log in to [email or web address].. ?? [facility], in keeping with [facility] guidance, no longer requires face masks [...] a health care balaji of your choosing. [employer] is a website that allows you to securely view your medical information including your hospital discharge summary, office visit summaries, medications and follow-up visits. You can also request appointments, renew medications, and request access to your medical information using a health care balaji of your choosing, or just ask a question. You can enroll at [email or web address] or register during your next office visit. You have been discharged from [facility], Patient Care Unit: W4??. If you have any questions regarding these instructions, including results of studies pending, afteryou leave, please call us and we will be happy to assist you 27/04. [facility] Your Care Team Attending Physician Lashell Anderson DO?? Consulting Providers Lashell Anderson DO?? Discharging Providers Elle Montgomery MD Reason for Your Visit staff noticed sat 70s, difficulty breathing?? Your Diagnosis Atrial fibrillation Chronic anticoagulation GERD (gastroesophageal reflux disease) Dysphagia Hypothyroidism Schizophrenia Seizure disorder Type 2 diabetes mellitus Chronic obstructive pulmonary disease Hypothermia Sepsis Leucocytosis High anion gap metabolic acidosis CKD (chronic kidney disease) stage 4, GFR 15-29 ml/min Cognitive impairment AD (Alzheimer's disease) History of CVA with residual deficit Expressive aphasia Dementia Hypertension BPH (benign prostatic hyperplasia) Multifocal pneumonia Acute hypoxic respiratory failure Anemia in chronic kidney disease Pressure ulcer of coccygeal region, stage 2 Emotional lability Xerosis cutis Wheelchair 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 You may have had other tests and procedures not included in this list. Please discuss all test results with your provider. Basic Metabolic Panel Blood Culture Blood Culture #2 Blood Culture 2 Results Blood Culture Result BUN CBC CBC w/ Differential Comprehensive Metabolic Panel COVID-19 (Novel Coronavirus), Rapid PCR Creatinine Electrolytes GLUCOSE POC Hemoglobin A1C (Monitoring) High??Sensitivity??Troponin T Hold Blue Top Tube INR Lipase Magnesium Level MRSA/MSSA PCR Nasal Swab MYCOPLASMA PNEUMONIAE IGM Phosphorus Level ProBNP Respiratory Pathogen PCR with COVID-19 TSH WITH REFLEX TO FT4 Urinalysis w/hold for Urine Culture Urine Culture Result Urine Culture, Routine Urine Osmolality Urine Sodium XR Chest Portable Add On Lab Order?? BUN?? CBC w/ Differential?? Creatinine?? Electrolytes?? Haptoglobin?? Hepatic Function Panel (LFT's)?? Hold Lavender Tube (BB)?? Ionized Calcium (PH CORRECTED IONIZED CALCIUM)?? LDH?? Lactic Acid Level (Lactate Level)?? Legionella Antigen Urine (LEGIONELLA ANTIGEN)?? Osmolality?? Sputum, Gram Smear w/Culture Rfx?? Strep Pneumoniae Urinary Ag?? Primary Care Provider Not on Staff, PCP?? Advance Directive Health Care Proxy on File No Patient refuses to discuss Discharge Vitals Temperature: 98 DegF Height: 173 cm Pulse Rate: 68 bpm Weight: 85.1 kg Respiratory Rate: 18 br/min Body Mass Index:??28.43 kg/m2??High Systolic Blood Pressure:??140 mm Hg??High Body surface area: 2.02 Diastolic Blood Pressure: 62 mm Hg ?? Oxygen Saturation: 97 % ?? Studies Pending All studies ordered during this hospital stay have been completed unless listed below. Please discuss all pending results with your provider listed above in these instructions. ?? Add On Lab Order?? BUN?? CBC w/ Differential?? Creatinine?? Electrolytes?? Haptoglobin?? Hepatic Function Panel (LFT's)?? Hold Lavender Tube (BB)?? Ionized Calcium (PH CORRECTED IONIZED CALCIUM)?? LDH?? Lactic Acid Level (Lactate Level)?? Legionella Antigen Urine (LEGIONELLA ANTIGEN)?? Osmolality?? Sputum, Gram Smear w/Culture Rfx?? Strep Pneumoniae Urinary Ag?? What to do next Instructions From Your Doctor You presented to [facility] on 02/15/2020 for an further [facility]entiary facility for concerns of pneumonia.?? The doctors in the emergency department did some lab work and imaging.?? Youwere then admitted to the hospital for further evaluation management.?? The results of these test showed that you have an infection in your lungs.?? You were treated for this infection with IV antibiotics during your hospital admission. Admission we made some changes to your medications.?? Please find these things below.?? Please take your medications as prescribed.?Should you continue to experience any worsening chest pain, shortness of breath, cough, fevers, confusion please seek medical care soon as possible. ?? Medications Started Insulin Glargine?? 4?unit(s)?Subcutaneous Injection?Daily at bedtime Amoxicillin-Clavulanate??1?tablet?By Mouth?2 times a day ?? Medications Discontinued None. ?? Doses Changed Ferrous sulfate changed from every day??to every other day ?? Orders? 02/16/24 11:21:00 EDT?? You Need to Schedule the Following Appointments Follow Up with??Not on Staff, PCP When:??Within 1 week Why: Please call??to establish a PCP Discharge Medications MICKIARGENTINA FAYE :1950 Visit Date:02/13/2024 Medications: Please continue your medications until treatment is completed or stopped by your provider. Medications not listed below should be discontinued. Discuss any questions related to medications with your provider. What How Much When Instructions Next Dose New Amoxicillin-Clavulanate (Augmentin 500 Tablet) 1 tab(s) Oral Twice a day tonight at 8:00 PM New Insulin Glargine (Lantus Inj) 4 unit(s) Subcutaneous Injection Daily at Bedtime tonight at 8:00 PM Changed Acetaminophen (Acephen 650 mg rectal suppository) 1 suppository(ies) Per rectum Every 8 hours as needed for Pain , Mild, Fever >101 Changed Ferrous Sulfate (ferrous sulfate 325 mg oral enteric coated tablet) 325 Milligram Oral Every other day tomorrow at 8:00 AM Unchanged Amlodipine (amLODIPine 10 mg oral tablet) 1 tab(s) Oral Daily in the morning tomorrow at 8:00 AM Unchanged apixaban (Eliquis 5 mg oral tablet) 1 tab(s) Oral Twice a day tonight at 8:00 PM Unchanged Atorvastatin (atorvastatin 20 mg oral tablet) 1 tab(s) Oral Daily at Bedtime tonight at 8:00 PM Unchanged Benztropine (benztropine 1 mg oral tablet) 1 Milligram Oral Twice a day tonight at 8:00 PM Unchanged Bisacodyl (Dulcolax 10 mg rectal suppository) 1 suppository(ies) Per rectum Daily as needed for as needed for constipation as needed Unchanged Cholecalciferol (cholecalciferol 2000 intl units oral tablet) 1 tab(s) Oral Daily in the morning tomorrow at 8:00 AM Unchanged Emollients, Topical (Minerin topical cream) Topically Daily at Bedtime to bilateral feet ?? tonight at 8:00 PM Unchanged Finasteride (finasteride 5 mg oral tablet) 1 tab(s) Oral Daily in the morning tomorrow at 8:00 AM Unchanged Folic Acid (folic acid 1 mg oral tablet) 1 tab(s) Oral Daily in the morning tomorrow at 8:00 AM Unchanged Glucagon (Gvoke HypoPen 1 mg/ 0.2 mL subcutaneous solution) 1 Milligram Subcutaneous Injection Once as needed for Hypoglycemia Unchanged Glucose (Insta-Glucose 24 g/ 31 g oral gel) See instructions gel BS <60 with S/ S (if resident is able to take by mouth) give glucose 1 tube by mouth - recheck & retreat every 15min until greater than 100 BS ?? Unchanged Guaifenesin (guaiFENesin 100 mg/ 5 mL oral liquid) 20 Milliliter Oral Twice a day as needed for for cough Duration: 7 Days Unchanged Haloperidol (haloperidol decanoate 50 mg/ ml injectable solution) 0.5 Milliliter Intramuscular Every 28 days STARTED ?? Unchanged Insulin Lispro (insulin lispro 100 units/ mL injectable solution) 2-10 units Subcutaneous Injection Two times a day with meals Inject morning & evening as per sliding scale: 150-200=2 units 201-250=4 units 251-300=6 units 301-350=8 units 351-400=1 units call MD if <70 or >400 ?? Unchanged Isosorbide Mononitrate (Imdur 30 mg oral tablet, extended release) 1 tab(s) Oral Daily in the morning tomorrow at 8:00 AM Unchanged Lactulose (lactulose 10 gm/ 15 ml oral syrup) 45 Milliliter Oral Daily in the morning tomorrow at 8:00 AM Unchanged levETIRAcetam (levETIRAcetam 100 mg/ mL oral solution) 2.5 Milliliter Oral Twice a day tonight at 8:00 PM Unchanged Levothyroxine (Synthroid 0.1 mg oral tablet) 100 Microgram Oral Daily tomorrow at 8:00 AM Unchanged Multivitamin (Daily Seema oral tablet) 1 tab(s) Oral Daily in the morning tomorrow at 8:00 AM Unchanged Pantoprazole (pantoprazole 40 mg oral delayed release tablet) 1 tab(s) Oral Twice a day tonight at 8:00 PM Unchanged Risperidone (risperiDONE 2 mg oral tablet) 1 tab(s) Oral Twice a day tonight at 8:00 PM Unchanged Senna (Senna 8.6 mg oral tablet) 2 tab(s) Oral Daily as needed for for constipation as needed Unchanged Sucralfate (Carafate 1 gm oral tablet) 1 tab(s) Oral 3 times a day 6 AM, 12 PM & 5 PM NOT ON PAPER CHART ?? today at dinnertime at 5:00 pm Unchanged Tamsulosin (tamsulosin 0.4 mg oral capsule) 2 capsule Oral Daily at Bedtime tonight at 8:00 PM Unchanged Thiamine (thiamine 100 mg oral tablet) 1 tab(s) Oral Daily in the morning tomorrow at 8:00 AM Prescription Given During Visit No new medications prescribed at time of discharge.?? Laboratory Results Below is a partial list of the most recent Laboratory test results done prior to this discharge. You may have had other tests and procedures not included in this list. Please discuss all test resultswith your provider. Basic Metabolic Panel (02/16/2024) ???Sodium - 139 mmol/L???Potassium - 4.5 mmol/L???Chloride - 102 mmol/L???Bicarbonate Level - 27 mmol/L???Anion Gap - 10???Glucose Level - 181 mg/dL???BUN - 35 mg/dL???Creatinine-Blood - 2.32 mg/dL???Estimated GFR Creatinine - 29 ML/MIN/1.73 M2???Calcium - 9.5 mg/dL Blood Culture (02/13/2024) ???Blood Culture Results - Preliminary report???Blood Culture Specimen Source - BLOOD Blood Culture #2 (02/13/2024) ???Blood Cult 2 Results - Preliminary report???Blood Culture 2 Specimen Source - BLOOD Blood Culture 2 Results (02/13/2024) ???Blood Culture 2 Isolate 1 - Comment Blood Culture Result (02/13/2024) ???Blood Culture Isolate 1 - Comment BUN (02/15/2024) ???BUN - 38 mg/dL CBC (02/16/2024) ???WBC - 8.7 k/mm3???RBC - 3.23 m/mm3???Hgb - 8.5 Gm/dL???Hct - 27.2 %???MCV - 84.2 femtoliters???MCH - 26.3 pg???MCHC - 31.3 g/dL???Platelet Count - 309 k/mm3???RDW-SD - 53.1 femtoliters???MPV - 9.4femtoliters???Nucleated RBC (Automated) - 0.2 #/100 WBC'S???Abs. NRBC - 0.0 k/mm3 CBC w/ Differential (02/15/2024) ???WBC - 12.2 k/mm3???RBC - 3.06 m/mm3???Hgb - 8.1 Gm/dL???Hct - 25.3 %???MCV - 82.7 femtoliters???MCH - 26.5 pg???MCHC - 32.0 g/dL???Platelet Count - 290 k/mm3???RDW-SD - 50.9 femtoliters???MPV - 9.8 femtoliters???Nucleated RBC (Automated) - 0.2 #/100 WBC'S???Abs. NRBC - 0.0 k/mm3???Abs. Neut - 8.6 k/mm3???Abs. Lymph - 2.4 k/mm3???Abs. [place] - 0.8 k/mm3???Abs. Eo - 0.1 k/mm3???Abs. Baso - 0.0 k/mm3???Neut % - 70.3 %???Lymph % - 19.9 %???[place] % - 6.2 %???Eos % - 0.9 %???Baso % - 0.2 %???Imm Gran- 2.5 %???Abs. Imm Gran - 0.3 k/mm3 Comprehensive Metabolic Panel (02/13/2024) ???Sodium - 130 mmol/L???Potassium - HEMOLYZED???Chloride - 93 mmol/L???Bicarbonate Level - 21 mmol/L???Anion Gap - 16???Glucose Level - 267 mg/dL???BUN - 33 mg/dL???Creatinine-Blood - 2.04 mg/dL???Estimated GFR Creatinine - 33 ML/MIN/1.73 M2???Calcium - 9.0 mg/dL???Protein, Total - 7.3 Gm/dL???Albumin - 3.2 Gm/dL???AG Ratio - 0.8???Alkaline Phosphatase - 177 units/L???AST (SGOT) - 27 units/L???ALT (SGPT) - 12 units/L???Bilirubin, Total - 0.3 mg/dL COVID-19 (Novel Coronavirus), Rapid PCR (02/13/2024) ???COVID-19 by RT-PCR - NEGATIVE Creatinine (02/15/2024) ???Creatinine-Blood - 2.28 mg/dL???Estimated GFR Creatinine - 29 ML/MIN/1.73 M2 Electrolytes (02/15/2024) ???Sodium - 132 mmol/L???Potassium - 5.0 mmol/L???Chloride - 98 mmol/L???Bicarbonate Level - 23 mmol/L???Anion Gap - 11 GLUCOSE POC (02/16/2024) ???Glucose, POC - 203 mg/dL Hemoglobin A1C (Monitoring) (02/15/2024) ???Hemoglobin A1C (Monitoring) - 8.4 % High??Sensitivity??Troponin T (02/13/2024) ???High Sensitivity Troponin (HSTnT) - 32 ng/L Hold Blue Top Tube (02/13/2024) ???Hold Blue Top - SPECIMEN DISCARDED AFTER 4 HOURS. INR (02/13/2024) ???INR - 1.1???Protime (PT) - 11.8 seconds Lipase (02/13/2024) ???Lipase - 18 units/L Magnesium Level (02/16/2024) ???Magnesium - 1.9 mg/dL MRSA/MSSA PCR Nasal Swab (02/14/2024) ???MRSA PCR Result - Negative, MRSA target DNA not detected.???S Aureus PCR Result - Negative, SA target DNA not detected. MYCOPLASMA PNEUMONIAE IGM (02/13/2024) ? ?Mycoplasma pneumoniae, IgM - <770 Phosphorus Level (02/14/2024) ???Phosphorus - 3.5 mg/dL ProBNP (02/13/2024) ???Nt-Probnp - 860 pg/mL Respiratory Pathogen PCR with COVID-19 (02/14/2024) ???Adenovirus by PCR - NEGATIVE???Coronavirus 229E by PCR (not COVID-19) - NEGATIVE???Coronavirus HKU1 by PCR (not COVID-19) - NEGATIVE???Coronavirus NL63 by PCR (not COVID-19) - NEGATIVE???Coronavirus OC43 by PCR (not COVID-19) - NEGATIVE???Human Metapneumovirus by PCR - POSITIVE???Rhinovirus/Enterovirus by PCR - NEGATIVE???Influenza A by PCR [...] - NEGATIVE???Bordetella Parapertussis by PCR - NEGATIVE TSH WITH REFLEX TO FT4 (02/14/2024) ???TSH - 1.79 uIU/mL Urinalysis w/hold for Urine Culture (02/13/2024) ???Appear/Color, Urine - YELLOW???Specific [place], Urine - 1.015???pH, Urine - 5.5???Albumin, Urine - 2+???Glucose, Urine - TRACE???Ketones, Urine - NEGATIVE???Bilirubin, Urine - NEGATIVE???Hemoglobin, Urine - 1+???Nitrite, Urine - NEGATIVE???Leukocyte, Urine - 3+???Urobilinogen - NORMAL???WBC's, Urine - >182 /HPF? ?RBC's, Urine - 10 /HPF? ?Bacteria - HEAVY? ?Hold Urine Culture - Testing available 48 hours from time of collection. Urine Culture Result (02/13/2024) ???Urine Culture Isolate 1 - Escherichia coli Urine Culture, Routine (02/13/2024) ???Urine Culture Results - Preliminary report???Urine Culture Specimen Source - URINE Urine Osmolality (02/14/2024) ???Osmolality, Urine Random - 415 mOsm/kg Urine Sodium (02/14/2024) ???Sodium, Urine Random - 20 mmol/L Allergies (NKA means No Known Allergies) [...] Educational Leaflet Providered with your Discharge Instructions. [employer] Patient Education - Community-Acquired Pneumonia in Adults?? [employer] Patient Education - Amoxicillin/Clavulanate Oral Tablet?? Valuables and Belongings I fully understand and agree that [facility] accepts no responsibility for all my personal [...] home. ?? No Valuables/Belongings: No valuables/belongings present Date for Pt to Sign Valuables/Belongings: 02/13/24 13:17:00 ?? Other Discharge Information ? Pulmonary Rehab Status?? Pulmonary Rehab Discharge [...] are strongly encouraged to quit. Please call [facility] [employer] [facility] at [phone] or [phone] ([phone]) or log in to [email or web address] for referrals to smoking cessation programs. ?? 086 Suicide & Crisis Lifeline is available 27/04 if you or someone you know needs to find a reason to keep living. By calling 757 you'll be connected to a skilled, trained counselor at a crisis center in your area. INPATIENT DISCHARGE INSTRUCTIONS SIGNATURE PAGE ARGENTINA PIPER Location:[facility] Registration Date and Time:02/13/2024 15:56 EDT Primary Care Physician: Not on Staff, PCP Attending Physician: Lashell Anderson DO, I ARGENTINA PIPER, have received the above patient education materials/instructions and have verbalized understanding. If ambulance or transport services are being used I further acknowledge being given a choice of service. ?? If you need to contact me, please call me at this number: . Patient/Baffle Installer Name: Patient/Baffle Installer Signature: Relationship to Patient: Witness Name/Signature: Date: * Elle Montgomery MD: PERFORM Event Display: Patient Education Leaflets Authored Date: [id number] Community-Acquired Pneumonia in Adults ?? 606 Community-Acquired Pneumonia in Adults What is community-acquired pneumonia? Pneumonia is a type of lung infection. It can cause breathing problems and other symptoms. In community-acquired pneumonia (CAP), you get infected in a community setting. It doesn???t happen in a hospital, jail, or other healthcare center. Your lungs are part of your respiratory system. This system supplies fresh oxygen to your blood andremoves carbon dioxide, a waste product. When you breathe in air through your nose and mouth, it reaches the tiny air sacs of the lung (alveoli) through a series of tubes. From here, oxygen flows into your blood. Carbon dioxide flows out from the blood into the alveoli. You then breathe it out. Many germs can grow inside and on your body and cause disease. Certain germs can cause lung infection and pneumonia when they get into the lungs. This can cause your respiratory system to work poorly. For example, oxygen may not be able to get into your blood as easily. That can cause shortness of breath. Pneumonia may lead to if your body can???t get enough oxygen to survive. Sometimes these germs can spread from person to person. When someone infected with one of these germs sneezes or coughs, you might breathe the germs into your lungs. The germs may grow and cause pneumonia if your immune system doesn???t kill the germs first. CAP can result from infection with many types of germs. These include bacteria, viruses, fungi, andparasites. Symptoms from pneumonia can range from mild to severe. Certain types of germs are more likely to lead to serious infection. CAP is more common during the winter months. It's also more common in older adults. But it can affect people of any age. It can be very serious, especially in older adults, young children, and peoplewith other health problems. ?? What causes community-acquired pneumonia? Many different types of germs can cause pneumonia. But certain types cause CAP more often. Worldwide, Streptococcus pneumoniae is a type of bacteria that is most often responsible for CAP in adults. Some other common bacteria that cause CAP are: ??? Haemophilus influenzae ??? Mycoplasma pneumoniae ??? Chlamydia??pneumoniae ??? Legionella ??? Gram-negative bacilli ??? Staphylococcus aureus The flu (influenza) virus is also a major viral cause of CAP. Having the flu also makes you more likely to get bacterial pneumonia. This type is often worse than viral pneumonia. Other types of viruses can also cause CAP. These include SARS-CoV-2 (the cause of COVID-19), parainfluenza virus, echovirus, adenovirus, and coxsackievirus. In fact, viruses are likely the cause of most episodes of CAP. Fungi and parasites may also cause CAP. ?? Who is at risk for community-acquired pneumonia? Certain things may raise your risk for CAP. Some of these are: ??? Smoking ??? Weak immune system, such as from medicines or a health problem such as diabetes, cancer, or HIV ??? Other lung problems, such as COPD (chronic obstructive pulmonary disease) ??? Otherhealth problems, such as kidney failure ??? Use of certain medicines, including proton-pump inhibitors ??? Heavy alcohol use You also have a higher risk if you come into contact with other people who have pneumonia. ?? What are the symptoms of community-acquired pneumonia? Symptoms of CAP often develop quickly. These symptoms may include: ??? Shortness of breath ??? Coughing ??? Heavy sputum ??? Fever and chills ??? Chest pain that is worse when you breathe or cough ??? Upper belly (abdomen) pain with nausea, vomiting, or diarrhea Your healthcare provider might notice other signs. These are a fast heartbeat, fast breathing rate,or certain sounds on a lung exam. ?? How is community-acquired pneumonia diagnosed? Your healthcare provider will ask about your more recent symptoms and your past health problems. They will also do a physical exam, including a careful exam of your lungs. Lab tests can be very helpful in diagnosing CAP. Some tests you might need are: ??? Chest X-ray, which often confirms the diagnosis ??? Blood tests to check for infection and oxygen status of your blood ??? Blood culture tests to see if a germ is growing in your bloodstream ??? Tests of your sputumto see if a germ is present there ??? Urine tests for certain bacteria ??? Swab of your nose or thro at to test for viruses or bacteria ?? How is community-acquired pneumonia treated? Your treatment may vary based on your symptoms and the type of germ causing the pneumonia. If you have severe pneumonia, you will likely need to stay in the hospital for some time. If you only have mild symptoms, you can probably get treatment at home. Antibiotics are a siu treatment for bacterial CAP. Certain viral forms of CAP may also be treated with antiviral medicine. But for many viral causes there is no specific medicine. If needed, your healthcare provider will likely start you on an antibiotic or antiviral medicine even before finding out the type of bacteria or virus. The type of antibiotic can vary based on the germs known to be in your community, as well as your other health problems. Your healthcare provider will want to treat you with an antibiotic that is likely to kill whatever germ is causing your illness. Antibacterial antibiotics don't help in treating viral pneumonia. They can often cause more harm than good. For treatment at home, you will probably take an antibiotic by mouth for 5 to 7 days. In most cases, you will start to feel better a few days after you start treatment. If you need to stay in the hospital, you will also need antibiotics specific to your case. In some cases, you may need to take these by IV (intravenously). Your healthcare provider might first start you on a certain antibiotic. They might then switch you to another as your blood tests show what kind of germ is causing your infection. You may also need extra support. This includes: ??? Extra oxygen ??? Fluids, if you are dehydrated ??? Breathing treatments ??? Respiratory support, such as with a ventilator, for a severe case Most people start getting better with treatment within a few days. A small portion of people who are treated in the hospital don???t respond to treatment within this time. If your symptoms don???t end, you may need a different antibiotic or treatment for complications from CAP. ?? What are possible complications of community-acquired pneumonia? Lung abscess and, rarely, empyema are possible complications of CAP. In empyema, a collection of pus builds in the space between the lung and the chest wall. You usually need antibiotics and drainageto treat it. A CT scan can often help diagnose these problems. Respiratory failure and are other possible complications. These are more likely to happen in older adults or those with other health problems. ?? What can I do to prevent community-acquired pneumonia? You can lower your chances of getting CAP by having a yearly flu shot. The pneumococcal vaccines protect against S. pneumoniae and may help in preventing CAP. Healthcare providers advise this shot for all people older than 65. You may need it before this time if you have: ??? Chronic heart, lung, liver, or kidney disease ??? Diabetes ??? Alcoholism ??? HIV ??? Weak immune system Smokers and people living in long-term care facilities should also get this shot before age 65. There are 2 vaccines against S. pneumoniae. Your healthcare provider may advise that you get both. You may need booster shots of the vaccine if you have your first pneumococcal vaccine before age 65 or if you have a weakened immune system. Practicing good hygiene can also help you lower your risk for CAP. That includes frequent handwashing. ?? When should I call my healthcare provider? Get treatment right away if you have symptoms of pneumonia. If you are being treated for CAP as an outpatient, call your healthcare provider if your symptoms don???t get better in a few days after starting treatment, or they get worse. ?? Siu points about community-acquired pneumonia ??? Pneumonia is a type of lung infection. It can cause breathing problems and other symptoms. In CAP, infection occurs outside of a healthcare setting. ??? CAP is a leading cause of in older adults. Most healthy young adults recover from CAP without a problem. ??? CAP can cause shortness of breath, fever, and cough. ??? You might need to stay in the hospital to be treated for CAP. ??? Most cases of CAP are caused by viruses and don't need treatment with antibiotics. ??? Antibiotics are the siu treatment for most types of CAP caused by bacteria. Antiviral medicine may be prescribed for certain viral causes of pneumonia. ??? Getting your vaccines as advised can help lower your risk for CAP. ?? Next steps Tips to help you get the most from a visit to your healthcare provider: ??? Know the reason for your visit and what you want to happen. ??? Before your visit, write down questions you want answered. ??? Bring someone with you to help you ask questions and remember what your provider tells you. ??? At the visit, write down the name of a new diagnosis, and any new medicines, treatments, or tests. Also write down any new instructions your provider gives you. ??? Know why a new medicine or treatment is prescribed, and how it will help you. Also know what the side effects are. ??? Ask if your condition can be treated in other ways. ??? Know why a test or procedure is recommended and what the results could mean. ??? Know what to expect if you do not take the medicine or have the test or procedure. ??? If you have a follow-up appointment, write down the date, time, and purpose for that visit. ??? Know how you can contact your provider if you have questions. ?? Last Reviewed Date: 2022 ?? [employer]. All rights reserved. This information is not intended as a substitute for professional medical care. Always follow your healthcare professional's instructions. ?? * Elle Montgomery MD: PERFORM Event Display: Patient Education Leaflets Authored Date: [id number] Amoxicillin/Clavulanate Oral Tablet ?? [id number] Amoxicillin/Clavulanate Oral Tablet Brands: Augmentin Uses For treating bacterial infection. ?? Instructions Take the medicine with food. Keep the medicine at room temperature. Avoid heat and direct light. It is important that you keep taking each dose of this medicine on time even if you are feeling well. If you forget to take a dose on time, take it as soon as you remember. If it is almost time for thenext dose, do not take the missed dose. Return to your normal schedule. Do not take 2 doses at one time. Tell your doctor and pharmacist about all your medicines. Include prescription and pbuf-rdw-iitzrqagsrdvpult, vitamins, and herbal medicines. Keep using this medicine for the full number of days that it is prescribed. Do not stop the medicine even if you start to feel better. If you have diabetes and use urine glucose tests, this medicine may cause incorrect results. Pleasecheck with your doctor before making any changes to your diabetes treatment plan. ?? Cautions Tell your doctor and pharmacist if you ever had an allergic reaction to a medicine. Do not use the medication any more than instructed. Please tell your doctor if you have moderate to severe diarrhea while on this medicine. Do not treat the diarrhea with [id number] diarrhea medicine. Tell the doctor or pharmacist if you are , planning to be , or . Do not start or stop any other medicines without first speaking to your doctor or pharmacist. Do not share this medicine with anyone who has not been prescribed this medicine. ?? Side Effects The following is a list of some common side effects from this medicine. Please speak with your doctor about what you should do if you experience these or other side effects. ??? diarrhea ??? nausea and vomiting ??? stomach upset or abdominal pain Call your doctor or get medical help right away if you notice any of these more serious side effects: ??? severe or persistent abdominal pain ??? severe, watery or bloody diarrhea ??? signs of liver damage (such as yellowing of eye or skin, dark urine, or unusual tiredness) ??? red, burning, or itchyskin ??? yeast infection of mouth ??? vaginal itching or discharge A few people may have an allergic reaction to this medicine. Symptoms can include difficulty breathing, skin rash, itching, swelling, or severe dizziness. If you notice any of these symptoms, seek medical help quickly. ?? Extra Please speak with your doctor, nurse, or pharmacist if you have any questions about this medicine. ?? [email or web address] IMPORTANT NOTE: This document tells you briefly how to take your medicine, but it does not tell youall there is to know about it. Your doctor or pharmacist may give you other documents about your medicine. Please talk to them if you have any questions. Always follow their advice. There is a more complete description of this medicine available in [place]. Scan this code on your smartphone or tablet or use the web address below. You can also ask your pharmacist for a printout. If you have any questions, please ask your pharmacist. The display and use of this drug information is subject to Terms of Use. Copyright(c) 2023 [employer]. ?? [employer]. All rights reserved. This information is not intended as a substitute for professional medical care. Always follow your healthcare professional's instructions. ?? Patient Care team information Care Team Personnel Name: Janice Escamilla RN Position: S RN Member Role: Primary Care Nurse Name: Mary Carmen Camara RN Position: S RN Member Role: Primary Care Nurse Name: Mayra Ron RN Position: S RN Member Role: Primary Care Nurse Name: Tammy Sheriff RN Position: S RN Member Role: Primary Care Nurse Name: Corwin Rosas RN Position: S RN Member Role: Primary Care Nurse Name: Rishabh Barrera RN Position: S RN Member Role: Primary Care Nurse Name: Dhruv Christopher RN Position: S RN Supv Member Role: Primary Care Nurse Name: Leann Forbes RN Position: [facility] RN Member Role: Primary Care Nurse Name: Ebony Bolanos RN Position: [facility] RN Member Role: Primary Care Nurse Name: Mnoica Camp RN Position: [facility] RN Member Role: Primary Care Nurse Name: Isaiah Hurt RN Position: [facility] RN Member Role: Primary Care Nurse Name: Torito Nicole RN Position: [facility] RN Member Role: Primary Care Nurse Name: Fatimah Greco RN Position: [facility] RN Member Role: Primary Care Nurse Name: Tanya Love RN Position: [facility] RN Member Role: Primary Care Nurse Name: Ibis Vogel RN Position: [facility] RN Member Role: Primary Care Nurse Name: Mayra Maloney RN Position: [facility] RN Member Role: Primary Care Nurse Name: Kellee Solis RN Position: [facility] RN Member Role: Primary Care Nurse Name: Adore Pike RN Position: [facility] RN Member Role: Primary Care Nurse Name: Rody Bianchi RN Position: [facility] RN Member Role: Primary Care Nurse Name: Emma Mcgee Position: [facility] RN Member Role: Primary Care Nurse Name: Yamileth Rivera MD Position: [facility] Renal MD Member Role: Lifetime Consulting Physician Address: Address: [address] [place] [address] [facility] Name: Marly Cochran RN Position: [facility] RN Member Role: Primary Care Nurse Name: Not on Staff, PCP Position: [facility] Physician (General Medicine) Member Role: PCP Name: Trinity Machado LPN Position: [facility] RN Member Role: Primary Care Nurse Name: Jill Wilson RN Position: [facility] RN Member Role: Primary Care Nurse Name: Rosa Francis RN Position: [facility] RN Member Role: Primary Care Nurse Name: Ketan Bolanos MD Position: [facility] Renal MD Member Role: Lifetime Consulting Physician Address: Address: [address] [place] [address] [address] [facility] [place] [address]- Name: Neri Solo RN Position: [facility] RN Member Role: Primary Care Nurse Name: Sharita Thomas RN Position: [facility] RN Member Role: Primary Care Nurse Name: Suzan Arriaga RN Position: S RN Member Role: Primary Care Nurse Name: Will Polo MD Position: [facility] Renal MD Member Role: Lifetime Consulting Physician Address: Address: [address] [place] [address] [facility] [address] Name: Donna Echavarria RN Position: [facility] RN Member Role: Primary Care Nurse Name: Harris Goodman RN Position: [facility] RN Member Role: Primary Care Nurse Name: Deanna Kingsley LPN Position: [facility] RN Member Role: Primary Care Nurse Name: Juan Pablo Monteiro RN Position: [facility] RN Member Role: Primary Care Nurse Name: Bibiana Woods RN Position: [facility] RN Member Role: Primary Care Nurse Name: Sandie Kwok RN Position: [facility] RN Member Role: Primary Care Nurse Name: Dmitri Rankin RN Position: [facility] RN Member Role: Primary Care Nurse Care Team Related Persons Name: MALIHA CALVO Address: home [address] [facility] [facility], [address] Name: JOE PIPER Address: home [address] [facility] [facility], [address]
[2024-06-14 12:03] LABS: TSH reflex Free T4 0.96 uIU/mL (0.32-4.0)
--- OUTSIDE RECORDS SUMMARY | 2024-06-14 12:03 | XMS_ITS | Continuity of Care Document ---
Author Organization [facility] ter Address [address] [place] [id number]- Care Team Providers Care Operations Officer Afloat Name Role Phone Arnulfo PRADO, Mark Primary Care Physician Encounter [facility] [place] Date(s): 11/17/23 - 11/23/[address] [address]- Encounter Diagnosis Hypothermia(Final) - 11/17/23 Altered mental state(Final) - 11/17/23 Acute hypotension(Final) - 11/18/23 Seizure disorder(Final) - 11/17/23 Seizure disorder(Final) - 11/21/23 Discharge Disposition: A-Transfer SNF Attending Physician: Robel Miramontes MD Admitting Physician: Claudia Barba MD Referring Physician: Not on Staff, Referring [...] opioid drug. Start Date: 03/04/23 Status: Ordered Acetaminophen Tablet 650 mg, Tablet, By Mouth, Every 4 hours, PRN for Pain , Mild, Temperature Greater than 100.5, Routine, 11/17/23 20:25:00 EST Start Date: 11/17/23 Stop Date: 11/23/23 Status: Discontinued amLODIPine 10 mg oral tablet 10 mg, 1, tablet, By Mouth, Daily in AM, # 30 tablet, Refills 0, Maintenance, 08/11/23 17:00:00 EST, Partial fill upon patient request if the prescription is for a schedule II opioid drug. Start Date: 08/11/23 Status: Ordered amLODIPine 10 mg oral tablet 10 mg, Tablet, By Mouth, 11/23/23 9:00:00 EST Start Date: 11/23/23 Stop Date: 11/23/23 Status: Completed atorvastatin 20 mg oral tablet 1 tablet [...] for Microbiology Reports Name Date Blood Culture 11/17/23 Blood Culture #2 11/17/23 Microbiology Reports TEST:Blood Culture, Second Order STATUS:Auth (Verified) BODY SITE: SOURCE:Blood COLLECTED DATE/TIME:11/17/23 11:31 AM Blood Culture, Second Order SPECIMEN DESCRIPTION : BLOOD NO SITE SPECIAL REQUESTS : NONE CULTURE : NO GROWTH 5 DAYS. REPORT STATUS : FINAL 11/22/2023 TEST:Blood Culture STATUS:Auth (Verified) BODY SITE: SOURCE:Blood COLLECTED DATE/TIME:11/17/23 11:21 AM Blood Culture SPECIMEN DESCRIPTION : BLOOD NONE SPECIAL REQUESTS : NONE CULTURE : NO GROWTH 5 DAYS. REPORT STATUS : FINAL 11/22/2023 Radiology Reports * Exam Date Time Procedure Performing Provider Status 11/21/23 8:01 AM Chest Portable Augusto Garcia (Verified) Notes: (Chest Portable) Reason For Exam: Hypothermia / hypoxia / atelectasis;Other: RESULT: Chest Portable Chest Portable Reason: Other:; Hypothermia hypoxia atelectasis; Clinical Question(s): Follow-Up Abnormal Exam COMPARISON: 11/18/2023 FINDINGS: LINES AND TUBES: None. LUNGS AND PLEURA: Clear lungs. Normal pulmonary vascularity. No pleural effusion. No pneumothorax. HEART, MEDIASTINUM AND KWAKU: Marked cardiomegaly. Normal mediastinal and hilar contour. BONES AND SOFT TISSUES: No acute abnormality. IMPRESSION: Marked cardiomegaly. Interval improvement in aeration in both lungs without definite residual effusion or pneumonia. WSN: [id number] Ordering Physician: Robel Miramontes Dictated By: Lore Hendrix MD, I Dictated Date/Time: 11/21/23 4:34 pm Reviewed By: Lore Hendrix MD, I Signed By: Lore Hendrix MD, I Signed Date/Time: 11/21/23 4:34 pm Transcribed By: CHERELLE Transcribed Date/Time: 11/21/23 4:33 pm * Exam Date Time Procedure Performing Provider Status 11/18/23 4:47 AM Chest Portable Trudy Arndt; Auth (Verified) Notes: (Chest Portable) Reason For Exam: Shortness of Breath RESULT: Chest Portable AP upright portable chest dated November 18, 2023 at 0429 hours. Comparison films are from 2023. HISTORY: Shortness of breath. FINDINGS: The cardiac silhouette is increased in size and has increased from the prior study. Muralcalcifications are present in the prominent aortic arch. Increasing opacification is present at theright lung base consistent with effusion, atelectasis, pneumonia, or any combination. Bilaterally, some mild pulmonary vascular congestion is noted. Degenerative changes are seen in the spine. IMPRESSION: Interval development of right-sided atelectasis or pneumonia and associated effusion. Findings are consistent with some pulmonary vascular congestion. This may represent a volume overload pattern. Examination 613[address]. Thank you for allowing me to participate in the care of this patient. WSN: [id number] Ordering Physician: Cuco De Anda Dictated By: Canelo Guzman MD Dictated Date/Time: 11/18/23 10:29 a Reviewed By: Canelo Guzman MD Signed By: Canelo Guzman MD Signed Date/Time: 11/18/23 10:29 am Transcribed By: CHERELLE Transcribed Date/Time: 11/18/23 10:29 am * Exam Date Time Procedure Performing Provider Status 11/17/23 1:[address] Abd/Pelvis W/ IV Contrast Only Valentine Mejia; Auth (Verified) Notes: (CT Abd/Pelvis W/ IV Contrast Only) Reason For Exam: LLQ abdominal pain;Other: RESULT: CT Abd/Pelvis W/ IV Contrast Only CT Chest W/ Contrast, CT Abd/Pelvis W/ IV Contrast Only INDICATION: Altered mental status. Pulmonary Lesion; Clinical Question(s): Interstitial Alveolar Infiltration TECHNIQUE: Helical CT scan of the chest, abdomen, and pelvis with IV contrast, formatted in 3 planes. 100 cc of Omnipaque 300 was administered intravenously. This study was performed without oral contrast. Weight-based protocol was performed using automatic exposure control. CTDIvol Body: 14.90 mGy, DLP Body: 1089 mGy*cm. COMPARISON: CT chest abdomen and pelvis 10/23/2023 FINDINGS: Study Specialist view findings, lines and tubes: Coker catheter with tip in the bladder. Trachea and airways: Patent without evidence of tracheal or endobronchial lesion. Lungs and pleura: A few scattered upper lobe groundglass opacities but overall improved aeration ofthe left upper lobe and left lower lobe when compared to prior examination. Improved opacity in theposterior right upper lobe. No pleural effusion or pneumothorax. Mediastinum and kwaku: No mass or hematoma. No mediastinal or hilar lymphadenopathy. Esophagus is patulous. Partially imaged thyroid is unremarkable. Heart: Mild cardiomegaly. No pericardial effusion. Moderate coronary artery calcification. Aorta: Mild vascular calcification but no aneurysm. Pulmonary arteries: Normal caliber. No evidence of pulmonary embolism on this study performed without angiographic technique. Chest wall soft tissues: No acute abnormality. Diaphragm: Intact. Liver: Normal in attenuation and morphology. No suspicious lesion. Gallbladder: Mildly distended. No gallstones. No surrounding stranding. Bile ducts: No biliary ductal dilation. Spleen: Normal in size. Pancreas: Mildly atrophic Adrenal glands: 8 mm left adrenal nodule measuring -72 Hounsfield units, likely a myelolipoma. Kidneys and ureters: The nonobstructing small right upper and interpolar calculi. No hydronephrosisor suspicious lesion. 1.0 cm exophytic hyperattenuating lesion in the right lower pole, unchanged from 08/10/2023. Unchanged 3.1 cm right lower pole cyst. Small hypodensities that are too small to characterize are noted. Bladder: Decompressed from Coker, limiting evaluation. Reproductive organs: Unremarkable. Stomach, small bowel, and large bowel: Small type III paraesophageal hernia. Small bowel is unremarkable. Moderately distended gas-filled colon with decompressed distal sigmoid colon, with transitionpoint seen in the left pelvis (201:160). No mass seen. Mildly increased thickness of the descendingcolonic wall. Moderate stool in the ascending colon. Mildly thickened rectal wall no associated inflammatory change. Appendix: No evidence of acute appendicitis. Peritoneum and retroperitoneum: No ascites or pneumoperitoneum. No omental or mesenteric lesions. Lymph nodes: Mildly prominent left inguinal lymph node measuring 1.2 cm Blood vessels: Mild vascular calcifications but no aneurysm. No evidence of venous thrombosis. Abdominal and pelvic wall soft tissues: Soft tissue contusion or inflammation overlying the right aspect of the coccyx. Bones: No acute abnormality. IMPRESSION: Moderately distended colon with apparent decompression in distal sigmoid colon, findings likely reflect peristalsis rather than true obstruction. Correlate clinically. Unchanged 1.0 cm hyperattenuating lesion in the right lower kidney, indeterminate. Recommend nonemergent MRI with and without contrast for further evaluation. Overall significant improvement in previously seen multifocal airspace opacities with a few minimalresidual scattered ground glass opacities.Findings may reflect treated pneumonia from 10/23/2023. Trace right pleural effusion. Likely decubitus ulcer versus soft tissue contusion overlying the right aspect of the coccyx. An actionable message (Smith) has been communicated via the [employer] [employer] system on 11/17/2023 3:08 PM, Message ID [id number]. I have personally reviewed the images and I agree with this report. WSN: [id number] Ordering Physician: Clau Pascal Dictated By: Caty Prado MD Dictated Date/Time: 11/17/23 3:09 pm Reviewed By: Leonel King MD Signed By: Leonel King MD Signed Date/Time: 11/17/23 3:14 pm Transcribed By: CHERELLE Transcribed Date/Time: 11/17/23 2:56 pm * Exam Date Time Procedure Performing Provider Status 11/17/23 1:[address] Chest W/ Contrast Claire Mejia on; Auth (Verified) Notes: (CT Chest W/ Contrast) Reason For Exam: Pulmonary Lesion;Other: RESULT: CT Chest W/ Contrast CT Chest W/ Contrast, CT Abd/Pelvis W/ IV Contrast Only INDICATION: Altered mental status. Pulmonary Lesion; Clinical Question(s): Interstitial Alveolar Infiltration TECHNIQUE: Helical CT scan of the chest, abdomen, and pelvis with IV contrast, formatted in 3 planes. 100 cc of Omnipaque 300 was administered intravenously. This study was performed without oral contrast. Weight-based protocol was performed using automatic exposure control. CTDIvol Body: 14.90 mGy, DLP Body: 1089 mGy*cm. COMPARISON: CT chest abdomen and pelvis 10/23/2023 FINDINGS: Study Specialist view findings, lines and tubes: Coker catheter with tip in the bladder. Trachea and airways: Patent without evidence of tracheal or endobronchial lesion. Lungs and pleura: A few scattered upper lobe groundglass opacities but overall improved aeration ofthe left upper lobe and left lower lobe when compared to prior examination. Improved opacity in theposterior right upper lobe. No pleural effusion or pneumothorax. Mediastinum and wkaku: No mass or hematoma. No mediastinal or hilar lymphadenopathy. Esophagus is patulous. Partially imaged thyroid is unremarkable. Heart: Mild cardiomegaly. No pericardial effusion. Moderate coronary artery calcification. Aorta: Mild vascular calcification but no aneurysm. Pulmonary arteries: Normal caliber. No evidence of pulmonary embolism on this study performed without angiographic technique. Chest wall soft tissues: No acute abnormality. Diaphragm: Intact. Liver: Normal in attenuation and morphology. No suspicious lesion. Gallbladder: Mildly distended. No gallstones. No surrounding stranding. Bile ducts: No biliary ductal dilation. Spleen: Normal in size. Pancreas: Mildly atrophic Adrenal glands: 8 mm left adrenal nodule measuring -72 Hounsfield units, likely a myelolipoma. Kidneys and ureters: The nonobstructing small right upper and interpolar calculi. No hydronephrosisor suspicious lesion. 1.0 cm exophytic hyperattenuating lesion in the right lower pole, unchanged from 08/10/2023. Unchanged 3.1 cm right lower pole cyst. Small hypodensities that are too small to characterize are noted. Bladder: Decompressed from Coker, limiting evaluation. Reproductive organs: Unremarkable. Stomach, small bowel, and large bowel: Small type III paraesophageal hernia. Small bowel is unremarkable. Moderately distended gas-filled colon with decompressed distal sigmoid colon, with transitionpoint seen in the left pelvis (201:160). No mass seen. Mildly increased thickness of the descendingcolonic wall. Moderate stool in the ascending colon. Mildly thickened rectal wall no associated inflammatory change. Appendix: No evidence of acute appendicitis. Peritoneum and retroperitoneum: No ascites or pneumoperitoneum. No omental or mesenteric lesions. Lymph nodes: Mildly prominent left inguinal lymph node measuring 1.2 cm Blood vessels: Mild vascular calcifications but no aneurysm. No evidence of venous thrombosis. Abdominal and pelvic wall soft tissues: Soft tissue contusion or inflammation overlying the right aspect of the coccyx. Bones: No acute abnormality. IMPRESSION: Moderately distended colon with apparent decompression in distal sigmoid colon, findings likely reflect peristalsis rather than true obstruction. Correlate clinically. Unchanged 1.0 cm hyperattenuating lesion in the right lower kidney, indeterminate. Recommend nonemergent MRI with and without contrast for further evaluation. Overall significant improvement in previously seen multifocal airspace opacities with a few minimalresidual scattered ground glass opacities.Findings may reflect treated pneumonia from 10/23/2023. Trace right pleural effusion. Likely decubitus ulcer versus soft tissue contusion overlying the right aspect of the coccyx. An actionable message (Smith) has been communicated via the [employer] [employer] system on 11/17/2023 3:08 PM, Message ID [id number]. I have personally reviewed the images and I agree with this report. WSN: [id number] Ordering Physician: Clau Pascal Dictated By: Caty Prado MD Dictated Date/Time: 11/17/23 3:09 pm Reviewed By: Leonel Knig MD Signed By: Leonel King MD Signed Date/Time: 11/17/23 3:14 pm Transcribed By: CHERELLE Transcribed Date/Time: 11/17/23 2:56 pm * Exam Date Time Procedure Performing Provider Status 11/17/23 1:[address] Cervical Spine W/O Contrast Valentine Ribera; Elina (Verified) Notes: (CT Cervical Spine W/O Contrast) Reason For Exam: Neck trauma, dangerous injury mechanism;Other: RESULT: CT Cervical Spine W/O Contrast CT Head/Brain W/O Contrast, CT Cervical Spine W/O Contrast INDICATION: Reason: Headache(s); Clinical Question(s): Hematoma TECHNIQUE: Noncontrast head CT using axial technique was reconstructed in axial and coronal planes.Noncontrast spiral CT through the cervical spine was formatted in 3 planes. Automatic tube modulation was used for the cervical spine and iterative dose reconstruction was used for both the head and cervical spine to optimize scan parameters and image quality. CTDIvol Body: 15.00 mGy, DLP Body: 410 mGy*cm. CTDIvol Head: 45.70 mGy, DLP Head: 773 mGy*cm. COMPARISON: 10/23/2023 FINDINGS: Study Specialist View Findings, Lines and Tubes: Nasal airway is noted. BRAIN AND EXTRA-AXIAL SPACES: No parenchymal hemorrhage, midline shift, or mass effect. Zapata-white matter differentiation is wellpreserved. No acute infarct. Mild prominence of the ventricles and sulci consistent with parenchymal volume loss. Mild low-density white matter changes. No subarachnoid hemorrhage. No subdural or epidural collection. CALVARIUM, SKULL BASE, AND SOFT TISSUES: No fractures or suspicious bony lesions. Mild mucosal thickening of ethmoid air cells. Visualized orbits and globes are intact. The extracranial soft tissues are unremarkable. CERVICAL SPINE: No fracture. No acute osseous abnormalities. Normal alignment. No locked or perched facet. Mild multilevel degenerative disc space narrowing andend plate irregularity. OTHER BONES: No acute abnormality. CERVICAL SOFT TISSUES AND LUNG APICES: Normal soft tissues. Visualized lung apices are clear. IMPRESSION: No acute abnormality of the head or cervical spine. WSN: [id number] Ordering Physician: Clau Pascal Dictated By: Leonel King MD Dictated Date/Time: 11/17/23 1:52 pm Reviewed By: Leonel King MD Signed By: Leonel King MD Signed Date/Time: 11/17/23 1:52 pm Transcribed By: CHERELLE Transcribed Date/Time: 11/17/23 1:47 pm * Exam Date Time Procedure Performing Provider Status 11/17/23 1:[address] Head/Brain W/O Contrast Valentine Mejia; Elina (Verified) Notes: (CT Head/Brain W/O Contrast) Reason For Exam: Headache(s) RESULT: CT Head/Brain W/O Contrast CT Head/Brain W/O Contrast, CT Cervical Spine W/O Contrast INDICATION: Reason: Headache(s); Clinical Question(s): Hematoma TECHNIQUE: Noncontrast head CT using axial technique was reconstructed in axial and coronal planes.Noncontrast spiral CT through the cervical spine was formatted in 3 planes. Automatic tube modulation was used for the cervical spine and iterative dose reconstruction was used for both the head and cervical spine to optimize scan parameters and image quality. CTDIvol Body: 15.00 mGy, DLP Body: 410 mGy*cm. CTDIvol Head: 45.70 mGy, DLP Head: 773 mGy*cm. COMPARISON: 10/23/2023 FINDINGS: Study Specialist View Findings, Lines and Tubes: Nasal airway is noted. BRAIN AND EXTRA-AXIAL SPACES: No parenchymal hemorrhage, midline shift, or mass effect. Zapata-white matter differentiation is wellpreserved. No acute infarct. Mild prominence of the ventricles and sulci consistent with parenchymal volume loss. Mild low-density white matter changes. No subarachnoid hemorrhage. No subdural or epidural collection. CALVARIUM, SKULL BASE, AND SOFT TISSUES: No fractures or suspicious bony lesions. Mild mucosal thickening of ethmoid air cells. Visualized orbits and globes are intact. The extracranial soft tissues are unremarkable. CERVICAL SPINE: No fracture. No acute osseous abnormalities. Normal alignment. No locked or perched facet. Mild multilevel degenerative disc space narrowing andend plate irregularity. OTHER BONES: No acute abnormality. CERVICAL SOFT TISSUES AND LUNG APICES: Normal soft tissues. Visualized lung apices are clear. IMPRESSION: No acute abnormality of the head or cervical spine. WSN: [id number] Ordering Physician: Clau Pascal Dictated By: Leonel King MD Dictated Date/Time: 11/17/23 1:52 pm Reviewed By: Leonel King MD Signed By: Leonel King MD Signed Date/Time: 11/17/23 1:52 pm Transcribed By: CHERELLE Transcribed Date/Time: 11/17/23 1:47 pm * Exam Date Time Procedure Performing Provider Status 11/17/23 11:01 AM Chest Portable Ulices , Zari; Auth ( Verified) Notes: (Chest Portable) Reason For Exam: Shortness of Breath RESULT: Chest Portable Examination: Portable chest performed on 11/17/2023. History: Shortness of breath. Findings: A frontal view of the chest is compared to a prior study dated 10/30/2023. The cardiac silhouette is at the upper limits of normal for size. Pulmonary vascular congestion is seen. The lungs are otherwise clear. IMPRESSION: Minimal pulmonary vascular congestion. WSN: [id number] Ordering Physician: Clau Pascal Dictated By: Ana Nolasco MD Dictated Date/Time: 11/17/23 11:14 a Reviewed By: Ana Nolasco MD Signed By: Ana Nolasco MD Signed Date/Time: 11/17/23 11:14 am Transcribed By: CSBryant Transcribed Date/Time: 11/17/23 11:13 am Vital Signs Most recent to oldest [Reference Range]: 1 2 3 Oxygen Saturation [94-100 %] 95 % (11/23/23 11:14 AM) 94 % (11/23/23 10:00 AM) 98 % (11/23/23 9:00 AM) Pulse Rate [55-90 bpm] 50 bpm *L* (11/23/23 11:14 AM) 41 bpm *L* (11/23/23 7:00 AM) 44 bpm *L* (11/21/23 4:00 AM) Blood Pressure [90-138/55-84 mm Hg] 116/57mm Hg (11/23/23 11:14 AM) 116/55mm Hg (11/23/23 10:00 AM) 147/57mm Hg *H* (11/23/23 9:25 AM) Respiratory Rate [16-30 br/min] 16 br/min (11/23/23 11:14 AM) 15 br/min *L* (11/23/23 12:00 AM) 16 br/min (11/22/23 11:38 PM) Temperature [96.8-100.4 DegF] 97.3 DegF (11/23/23 11:14 AM) 97.1 DegF (11/23/23 10:00 AM) 96.0 DegF *L* (11/23/23 7:00 AM) Liters per Minute 2 L/min (11/23/23 7:00 AM) 2 L/min (11/23/23 5:00 AM) 1 L/min (11/21/23 12:00 AM) Mode of Delivery (Oxygen) Room air (11/23/23 11:14 AM) Room air (11/23/23 10:00 AM) Room air (11/23/23 7:00 AM) Blood pressure sites Arm, right (11/23/23 11:14 AM) Arm, left (11/22/23 4:00 AM) Arm, left (11/22/23 12:00 AM) Temperature Route Oral (11/23/23 11:14 AM) Temporal (11/23/23 10:00 AM) Core Bladder (11/23/23 7:00 AM) Social History Social History Type Response Sex Male Admission evaluation note * Maira GALINDO, Douglas M: PERFORM, MODIFY, MODIFY, MODIFY, MODIFY, MODIFY, MODIFY, MODIFY, MODIFY, MODIFY, MODIFY, MODIFY, MODIFY, MODIFY, MODIFY, MODIFY, MODIFY, MODIFY, MODIFY, MODIFY, MODIFY Event Display: Admission Note Authored Date: [id number] Patient: ??ARGENTINA GARRETT ? Age:??73 Years?Sex:??Male?:??1950?? 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 acute hypoxic respiratory failure in the setting of mutifocalpneumonia and UTI, who now presents from his nursing home due to altered mental status. ?? Per ED note: History is extremely limited and provided from EMS as patient is not answering questions verbally.?? Per EMS, patient has an unknown last known well time.?? Staff at the facility reported that he seemed to be more confused and looking off into space.?? Concern for possible seizure, no seizure was witnessed however patient does have seizure history.?? Extremely limited secondary to patient's altered mental status.?? Patient was bradycardic for EMS.?? Atropine was given prior to arrival. ?? Upon arrival to the ED: Pacer pads are placed as patient was bradycardic in the field to the 40s and received atropine prior to his arrival. Pt loaded on Keppra 2g IV.?? Patient was also noted to have another focal seizure in which she was not responsive.?? Patient was given 2 mg of Ativan due to continued seizure and lasted about 1 minute prior to medication and termination of seizure.?? Patient was also noted to be hypotensive with systolic in the 60s.?? Bedside ultrasound in ED showed IVC that was collapsible.?? Patient was given 1.5 L of IV fluids.?? With some improvement in blood pressure.?? Patient was also given 10 cc of push dose epi.?? Patient was also noted to be significantly hypothermic and was started on Tasha hugger.?? Patient's Coker was changed to a temp sensing Coker.?? Patient was given azithromycin 500 mg, Keppra 2 g, Zosyn, bank, and 1.5 L of IV fluids.?? Labs show venous pH of 7.28 with pCO2 of 67, bicarb of 31, CBC is within normal limits, electrolytes are within normal limits, BUN of 43, creatinine 2.7, troponin 26 then 24, TSH is 10.2, free T4 is 1.38, UA is ne gative, flu negative, COVID-negative, RSV negative, LFTs are normal, CT head Noncon is negative, CTcervical spine is negative, CT chest with contrast and CT abdomen/pelvis with IV contrast showed Moderately distended colon with apparent decompression in distal sigmoid colon, findings likely reflect peristalsis rather than true obstruction. Correlate clinically. Unchanged 1.0 cm hyperattenuating lesion in the right lower kidney, indeterminate. Recommend nonemergent MRI with and without contrastfor further evaluation. Overall significant improvement in previously seen multifocal airspace opacities with a few minimal residual scattered ground glass opacities.Findings may reflect treated pneumonia from 10/23/2023. Trace right pleural effusion. Likely decubitus ulcer versus soft tissue contusion overlying the right aspect of the coccyx. ?? Upon my initial evaluation, patient unable to engage in conversation.?? Patient able to follow some commands such as squeezing hands and feet and toes.?? Patient not responsive to sternal rub.?? Patient with increased secretions. Pt does not open eyes. Review of Systems unable to assess Objective ? Vital Signs?? Temperature:??93.5 DegF??Low (11/17/23:30:) Temperature Route: Core Bladder (11/17/23:30:00) Pulse Rate: 66 bpm (11/17/23:30:00) Respiratory Rate: 24 br/min (11/17/23:30:) Systolic Blood Pressure: 99 mm Hg (11/17/23:30:00) Diastolic Blood Pressure:??52 mm Hg??Low (11/17/23) Blood pressure sites: Arm, left (11/17/23) Mean Arterial Pressure: 74 mm Hg (11/17/23 18:37:00) Pulse Pressure: 39 mm Hg (11/17/23 18:37:00) Oxygen Saturation: 100 % (11/17/23::) Liters per Minute: 2 L/min (11/17/23:30:) Mode of Delivery (Oxygen): Nasal cannula (11/17/23::) End Tidal CO2: 20 mm Hg (11/17/23 14:47:00) ? Physical Exam Constitutional: not alert Mental Status: eyes closed not engaging Head: Normocephalic. Eyes: unable to determine eye exam Ear, Nose and Throat: Oropharynx clear, mucous membranes moist. Ears and nose without masses, lesions or deformities. Trachea midline. Neck: Supple, Full range of motion. Respiratory: Clear to auscultation. No wheezing, rales or rhonchi. Cardiovascular: S1 S2 regular. No murmurs, rubs or gallops. No JVD. No peripheral edema. Gastrointestinal: Abdomen soft, non-tender, non-distended. Normal bowel sounds. No pulsatile mass. No hepatosplenomegaly. Neurologic: No focal neurological deficits. unable to perform full neuro exam. Squeezes hand and moves toes. does not open eyes. Skin: No rashes or lesions. No petechiae or purpura.?? Musculoskeletal: No cyanosis or clubbing. No gross deformities. Normal range of motion. 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 acute hypoxic respiratory failure in the setting of multifocal pneumonia and UTI, who now presents from his nursing home due to altered mental status. ?? Acute metabolic encephalopathy ??(G93.41) Acute hypoxic hypercapnic respiratory failure Hypothermia ??(T68.XXXA) Seizure ??(R56.9) Sepsis ??(A41.9) Unclear cause of acute metabolic encephalopathy. Patient did present with sepsis with??hypotension and hypothermia. Patient is??verbal at baseline.?? At this time??patient is??difficult to arouse. ??However??he doesfollow some commands. There was also concern for seizure in the ED.?? Patient was loaded on Keppra 2000??mg and given Ativan 2 mg??which stopped focal seizure that lasted for 1 minute. Patient may??also have a postictal state??resulting in acute metabolic encephalopathy.?? Another etiology??could be meningitis however this is lower on the differential at this time. On CT scan noted to have??potential decubitus ulcer??in the coccyx.?? Per nursing there is no decubitus ulcer??noted on physical exam.?? However osteomyelitis/soft??tissues skin infection could be result of??metabolic encephalopathy.?? However patient's pneumonia??has improved since previous admission.?? UA shows no signs of infection at this time.?? Therefore sepsis with unclear source??at this time. During the course of the night patient's??did show improvement in mental status??and was able to say that he does not feel good however remains to be difficult to arouse with sternal rub. Unclear cause for acute hypoxic respiratory failure at this time. Pt noted to have increased secretions but does not have signsn of pneumonia at this time. Can consider speech therapy consult to for diet recommendations. Tropes remain flat,??unlikely cardiac cause for??altered mental status. ?? Plan -Continue Vanco and Zosyn (patient should be covered for Vanco at this time therefore will not reorder??however must be redosed based on kidney function??later on in hospitalization) -Follow blood cultures -Neurochecks every 4??hours -Seizure precautions -ESR, CRP -Keppra 500 mg twice daily??IV -Consider neurology consult if??patient's acute metabolic encephalopathy does not improve. -Cortisol level at 6 AM. -Consider ammonia levels and U-Tox??if patient??mental status to improve. - Tasha elmore - NPO no exceptions due to mental status - CPT, chest percussion 4 times daily ?? Stage III chronic kidney disease ??(N18.30) Hyperkalemia ??(E87.5) Hyperkalemia 5.6,??baseline creatinine at this time. ?? Plan -Kayexalate enema due to n.p.o. status -Continue to monitor BUNs/creatinine -Avoid nephrotoxic drugs ?? Chronic Medical Conditions Esophagitis (K20.90)/History of gastrointestinal hemorrhage (Z87.19)/Anemia of chronic disease (D63.8):??Home pantoprazole 40 mg PO BID (will use IV due to mental status)??needs repeat EGD in ~4 weeks as per last admit recs Cognitive impairment (R41.89)/History of CVA with residual deficit (I69.30):?can be somewhat conversational at baseline but unsure of complete baseline mental status.??Left facial droop noted, present previously according to old documentation. Atrial fibrillation (I48.91):??Currently in NSR. will continue Eliquis in the AM as mental status is improving Chronic obstructive pulmonary disease (J44.9):??Resp. status stable. No evidence of acute exacerbation. Duonebs PRN Chronic diastolic heart failure (I50.32):??Euvolemic. Hold Imdur due to hypotension Renal lesion (N28.9):??Unchanged 1.0 cm hyperattenuating lesion in the right lower kidney, indeterminate. Recommend nonemergent MRI with and without contrast for further evaluation. Type??2 diabetes mellitus (E11.9):??Not on long-acting insulin. Lispro SS, POC TID with meals. A1c 7.5 Hypothyroidism (E03.9):??Continue levothyroxine, will use IV instead of po due to mental status Schizophrenia (F20.9):??hold home meds including benztropine, Risperidone, and olanzapine ?? Quality measures Diet-n.p.o.??no exceptions DVT prophylaxis-Eliquis in the a.m.(this is depending on mental status in the AM, if mental status does not improve then day team will need to start Heparin gtt) CODE STATUS: Presumed full, will attempt to call family??in the a.m. ?? Patient seen and discussed with attending Dr. De Anda ?? Douglas Rao,??DO PGY-2 Internal Medicine Pager [phone]/ cortext? Histories Allergies Allergies ?(Active and Proposed Allergies [...] (thiamine 100 mg oral tablet)?100?[place]?By Mouth?Daily ? Inpatient Medications Medications (9) Active SCHEDULED: (1) NaCl 0.9% Flush 3ml (NaCL 0.9% Flush) ??3 mL, IV Push, Every 8 hours CONTINUOUS: (0) PRN: (8) Acetaminophen 325 mg Tablet (Acetaminophen Tablet) ??650 mg, By Mouth, Every 4 hours Dextromethorphan-Guaifenesin 20 mg-200 mg/10 mL Liqu UD (Robitussin DM Liquid) ??10 mL, By Mouth, Every 4 hours Docusate Sodium 100 mg Capsule (Docusate Sodium Capsule) ??100 mg 1 capsule, By Mouth, 2 times a day Melatonin 3 mg Tablet (Melatonin Tablet) ??3 [...] times a day ? Results Recent Labs BLOOD COUNT & DIFF WBC 5.5 k/mm3 ()?? 11/17/2023 11:21 RBC 3.28 m/mm3 (Low)?? 11/17/2023 11:21 Hgb 9.2 Gm/dL (Low)?? 11/17/2023 11:21 Hct 28.6 % (Low)?? 11/17/2023 11:21 MCV 87.2 femtoliters ()?? 11/17/2023 11:21 MCH 28.0 pg ()?? 11/17/2023 11:21 MCHC 32.2 g/dL (Low)?? 11/17/2023 11:21 Platelet Count 178 k/mm3 ()?? 11/17/2023 11:21 RDW-SD 53.2 femtoliters (High)?? 11/17/2023 11:21 MPV 10.8 femtoliters ()?? 11/17/2023 11:21 Nucleated RBC (Automated) 1.5 #/100 WBC'S ()?? 11/17/2023 11:21 Abs. NRBC 0.1 k/mm3 ()?? 11/17/2023 11:21 Abs. Neut 3.1 k/mm3 ()?? 11/17/2023 11:21 Abs. Lymph 1.7 k/mm3 ()?? 11/17/2023 11:21 Abs. [place] 0.4 k/mm3 ()?? 11/17/2023 11:21 Abs. Eo 0.1 k/mm3 ()?? 11/17/2023 11:21 Abs. Baso 0.0 k/mm3 ()?? 11/17/2023 11:21 Neut % 56.5 % ()?? 11/17/2023 11:21 Lymph % 31.0 % ()?? 11/17/2023 11:21 [place] % 8.1 % ()?? 11/17/2023 11:21 Eos % 2.2 % ()?? 11/17/2023 11:21 Baso % 0.4 % ()?? 11/17/2023 11:21 Hemoglobin (POC) POC Cartridge 10.2 Gm/dL (Low)?? 11/17/2023 12:33 Hematocrit (POC) POC Cartridge 30 % (Low)?? 11/17/2023 12:33 Imm Gran 1.8 % ()?? 11/17/2023 11:21 Abs. Imm Gran 0.1 k/mm3 ()?? 11/17/2023 11:21 ?? BLOOD GAS pH Venous (POC) POC Cartridge 7.28 (Low)?? 11/17/2023 12:33 pCO2 Venous (POC) POC Cartridge 67.0 mm Hg (High)?? 11/17/2023 12:33 pO2 Venous (POC) POC Cartridge 22 mm Hg (Low)?? 11/17/2023 12:33 Est Bicarbonate (POC) POC Cartridge 31.3 mmol/L (High)?? 11/17/2023 12:33 % O2 Sat Venous (POC) POC Cartridge 28 ()?? 11/17/2023 12:33 Base Excess (POC) POC Cartridge 5 ()?? 11/17/2023 12:33 Specimen Type - Blood Gas VENOUS ()?? 11/17/2023 12:33 ?? CARDIAC High Sensitivity Troponin (HSTnT) 24 ng/L (High)?? 11/17/2023 13:51 ?? CHEM GENERAL Sodium 139 mmol/L ()?? 11/17/2023 11:21 Potassium 4.6 mmol/L ()?? 11/17/2023 11:21 Chloride 101 mmol/L ()?? 11/17/2023 11:21 Bicarbonate Level 29 mmol/L ()?? 11/17/2023 11:21 Anion Gap 9 ()?? 11/17/2023 11:21 Sodium (POC) POC Cartridge 138 mmol/L ()?? 11/17/2023 12:33 Potassium (POC) POC Cartridge 4.4 mmol/L ()?? 11/17/2023 12:33 Glucose Level 101 mg/dL (High)?? 11/17/2023 11:21 Glucose (POC) POC Cartridge 94 ()?? 11/17/2023 12:33 Glucose, POC 116 mg/dL (High)?? 11/17/2023 10:50 BUN 43 mg/dL (High)?? 11/17/2023 11:21 Creatinine-Blood 2.7 mg/dL (High)?? 11/17/2023 11:21 Estimated GFR Creatinine 23 ML/MIN/1.73 M2 ()?? 11/17/2023 11:21 Calcium 9.7 mg/dL ()?? 11/17/2023 11:21 Ionized Calcium (POC) POC Cartridge 1.28 mmol/L ()?? 11/17/2023 12:33 Protein, Total 7.6 Gm/dL ()?? 11/17/2023 11:21 Albumin 4.0 Gm/dL ()?? 11/17/2023 11:21 AG Ratio 1.1 ()?? 11/17/2023 11:21 Alkaline Phosphatase 270 units/L (High)?? 11/17/2023 11:21 AST (SGOT) 17 units/L ()?? 11/17/2023 11:21 ALT (SGPT) 15 units/L ()?? 11/17/2023 11:21 Bilirubin, Total 0.2 mg/dL ()?? 11/17/2023 11:21 Lactate 1.0 mmol/L ()?? 11/17/2023 11:21 ?? ENDOCRINE/TUMOR MARKER TSH 10.20 uIU/mL (High)?? 11/17/2023 11:21 Free T4 1.38 ng/dL ()?? 11/17/2023 11:21 ?? UA/URINALYSIS Appear/Color, Urine COLORLESS ()?? 11/17/2023 16:20 Specific [place], Urine 1.015 ()?? 11/17/2023 16:20 pH, Urine 5.5 ()?? 11/17/2023 16:20 Albumin, Urine 1+ (Abnormal)?? 11/17/2023 16:20 Glucose, Urine NEGATIVE ()?? 11/17/2023 16:20 Ketones, Urine NEGATIVE ()?? 11/17/2023 16:20 Bilirubin, Urine NEGATIVE ()?? 11/17/2023 16:20 Hemoglobin, Urine 1+ (Abnormal)?? 11/17/2023 16:20 Nitrite, Urine NEGATIVE ()?? 11/17/2023 16:20 Leukocyte, Urine NEGATIVE ()?? 11/17/2023 16:20 Urobilinogen NORMAL mg/dL ()?? 11/17/2023 16:20 WBC's, Urine 1 /HPF ()?? 11/17/2023 16:20 RBC's, Urine 4 /HPF (High)?? 11/17/2023 16:20 Squamous Epith <1 /HPF ()?? 11/17/2023 16:20 Hold Urine Culture Testing available 48 hours from time of collection. ()?? 11/17/2023 16:20 ?? VIROLOGY Influenza A PCR NEGATIVE ()?? 11/17/2023 11:21 Influenza B PCR NEGATIVE ()?? 11/17/2023 11:21 RSV PCR NEGATIVE ()?? 11/17/2023 11:21 COVID-19 PCR Specimen Source NASAL ()?? 11/17/2023 11:21 COVID-19 PCR Result NEGATIVE ()?? 11/17/2023 11:21 ? * Douglas Rao DO: PERFORM Event Display: Admission Note Authored Date: [id number] Pt now increasing O2 requirements with 15L on heath, repeat ABG remains to be the same, chest pt and duonebs ordered, CXR ordered, repeat labs ordered as well, along with ammonia and urine tox panel. Attempted to call Niharika (guardian) to confirm code status however there is no answer * Cuco De Anda DO W: PERFORM Event Display: Admission Note Authored Date: [id number] I have seen and evaluated this patient.??I have discussed the case and its management with the resident and agree with the findings and plan as documented in the resident???s note unless otherwise documented below. This is a??somewhat complex case of gentleman with a history of similar hospitalizations??during which his blood pressure??drops,??he is bradycardic, and hypothermic.?? Has been??assessed for adrenalinsufficiency in the past. Certainly presentation??is concerning for possible infection, though no clear source identified. Given some improvement in mental status, feel that this is less likely to be a case of meningitis, however??cannot completely rule out at this time. Both myself and Dr. Rao??have assessed the patient multiple times.?? On my evaluation,??did eventually open his eyes,??respond??to??some questions, noted that he does not feel well, however unable to provide explicit??complaint. Due to increasing oxygen requirement and what appears to be??worsening pulmonary edema on??plain film of chest,??will trial dose of 40 mg IV Lasix to see if this improves his respiratory status. EKG study * Event Display: ECG 12-Lead Authored Date: [id number] Please click on pdf link to open report * Event Display: ECG 12-Lead Authored Date: Ventricular Rate: 88 BPM Atrial Rate: 88 BPM P-R Interval: 208 ms QRS Duration: 84 ms Q-T Interval: 362 ms QTC Calculation(Bazett): 438 ms P Mcnabb: 15 degrees R Mcnabb: 46 degrees T Mcnabb: 15 degrees Normal sinus rhythm Normal ECG When compared with ECG of 17-NOV-2023 10:47, No significant change was found Confirmed by YENNIFER LANG MD ([id number]) on 11/22/2023 7:11:23 PM [place]: YENNIFER LANG MD * Event Display: ECG 12-Lead Authored Date: Please click on pdf link to open report * Event Display: ECG 12-Lead Authored Date: Ventricular Rate: 79 BPM Atrial Rate: 79 BPM P-R Interval: 198 ms QRS Duration: 86 ms Q-T Interval: 408 ms QTC Calculation(Bazett): 467 ms P Mcnabb: 57 degrees R Mcnabb: -9 degrees T Mcnabb: 40 degrees Normal sinus rhythm Nonspecific ST abnormality Abnormal ECG When compared with ECG of 28-OCT-2023 10:06, Questionable change in QRS axis Confirmed by ERMELINDA FULLER MD ([id number]) on 11/18/2023 7:19:16 PM [place]: ERMELINDA FULLER MD Cardiology * Event Display: Cardiac Rhythm Strips Authored Date: * Event Display: Cardiac Rhythm Strips Authored Date: Hospital Progress note * Chata Luevano: PERFORM, SIGN, VERIFY Event Display: Progress Note Hospital Authored Date: [id number] Patient: ARGENTINA GARRETT Age: 73 years Sex: Male : 1950 Associated Diagnoses: None Author: Chata Luevano [facility] Progress Note Interval History 2.9 L UOP in 24 hours, net negative 1.4 L overall. Reports abdominal pain, no acute complaints otherwise. Plan for d/c today. Review of Systems Review of Systems Respiratory: no shortness of breath. Cardiovascular: no chest pain. Gastrointestinal: abdominal pain. Physical Examination Vital Signs Vitals : VITALS 11/23/2023 10:00 EST Heart Rate Monitored 42 bpm L Systolic Blood Pressure 116 mm Hg Diastolic Blood Pressure 55 mm Hg Pulse Pressure 61 mm Hg Oxygen Saturation 94 % Mode of Delivery (Oxygen) Room air . General Appearance NAD. HEENT Moist mucous membranes. Respiratory Decreased breath sounds. Cardiac Rhythms: RRR. Abdomen/GI Abdomen: soft. Extremities No edema. 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 Admitted for AMS, hypothermia, sepsis with unclear source. Nephrology consulted for DEAN on CKD. 1. DEAN on CKD IV BL Cr 2.4-2.8mg/dL Cr peaked at 3.9mg/dL. Cr 3.4 mg/dL on 11/21, ? resolving ATN CT A/P showed no hydronephrosis. Contrast exposure w/ CT Chest and CT A/P on 11/17 CT A/P 11/17/23: Kidneys and ureters: The nonobstructing small right upper and interpolar calculi. No hydronephrosis or suspicious lesion. 1.0 cm exophytic hyperattenuating lesion in the right lower pole, unchanged from 08/10/2023. Unchanged 3.1 cm right lower pole cyst. Small hypodensities that are too small to characterize are noted. Recommend nonemergent MRI with and without contrast for furtherevaluation. DEAN likely 2/2 contrast-induced nephropathy (s/p contrast 11/17 with subsequent rise in Cr followingthis). 2. Hyperkalemia, resolved Plan: - Monitor kidney function - Monitor I/Os - Avoid nephrotoxins, contrast - Maintain coker - Dose meds per GFR Thank you for the courtesy of this consult, RTANE will continue to follow. Chata Fritz PA-C [facility]. Available by [facility] Discussed with Dr. Laws * Yudelka TAPIA, Ebony Sewell: VERIFY, PERFORM, SIGN Event Display: Progress Note Hospital Authored Date: [id number] Patient: ARGENTINA GARRETT Age: 73 years Sex: Male : 1950 Associated Diagnoses: None Author: Ebony Jha RN Findings Problem Related to Alteration in Neurological : Alteration in Neurological Function/new 11/22/2023 23:00 EST Alteration in Neuro status Related to Seizure Goals & Outcomes, Neurological Pt will be hemodynamically stable, Pt will be Neurologically stable Interventions, Neurological Assess & monitor for seizure activity, Assess seizure Hx, frequency/type/presence of aura, Teach Pt/caregiver how to respond to seizures BH Goals/Interventions, Neurological Yes Neurological, Problem Start 11/18/2023 19:00 Reviewed plan with, Neurological Patient Patient Progression, Neurological Pt progressing according to plan . Nursing Data Neurological Data. : Neurological Data. 11/22/2023 23:38 EST Pain Intensity 0 11/22/2023 20:28 EST Pain Intensity 2 11/22/2023 20:00 EST Tongue Disposition Midline Neurological Symptoms Alteration in speech quality, Difficulty swallowing, Lack of coordination, Muscle rigidity, Weakness or loss of muscle strength Level of Consciousness Full Consciousness Orientated to person, place, time Person Facial Symmetry Intact Characteristics of Speech Slurred Swallowing Difficulty Liquids, Pills Pupil description, left Regular Pupil description, right Regular Pupil reaction, left Brisk Pupil reaction, right Brisk Pupil Size, Left 2 mm Pupil Size, Right 2 mm Strength LUE 3-Active movement against gravity Strength RUE 4-Active movement against gravity & some resistance Strength LLE 3-Active movement against gravity Strength RLE 4-Active movement against gravity & some resistance Sensation LUE Intact Sensation RUE Intact Sensation LLE Intact Sensation RLE Intact Movement LUE Spontaneous Movement RUE Spontaneous Movement LLE Spontaneous Movement RLE Spontaneous Gait Other: bedrest Response Eye Opening Spontaneously Motor Response-Adult Obeys commands Verbal Response-Adult Oriented and converses Sunil Coma Score 15 Neuro WNL except Memory Intact Swallow - Neuro Other: crush pills in pudding . Evaluation pt remains IMC HR SR-SB on monitor. alert and oriented X1 to person. IVF infusing as ordered. foleycath draining CYU. see flowsheets for full assessments. T+Rq2hrs. stable WCTM. * Valentine Pascual: VERIFY, PERFORM, SIGN Event Display: Progress Note Hospital Authored Date: [id number] Patient: ARGENTINA GARRETT Age: 73 years Sex: Male : 1950 Associated Diagnoses: None Author: Valentine Pascual Findings Problem Related to Knowledge Deficit : Knowledge Deficit/new 11/22/2023 18:00 EST Knowledge Deficit related to: Disease process, Other: advanced dementia Goals & Outcomes, Knowledge Deficit Pt/caregiver states/demonstrates self care Interventions, Knowledge Deficit Adapt education for hearing impaired (ex. TTDY), Adapt education for sight impaired, Assess learning needs of pt/caregiver, Avoid terms that may confuse pt/caregiver,Collaborate with other disciplines for continuity of care, Consult Case Management, Dead Mail Checker, Document educational interventions, Document patient/caregiver's percentage of understanding, Encourage questions, concerns, and opportunity for self care, Increase family involvement of pt care as able, Provide education appropriate to the learner's needs, Provide education using the teach back method, Provide environment and opportunity for questions, Provide solution strategist if there is a languagebarrier, Provide opportunity for preferred Spiritual Services, Provide reinforcement previous teaching, Provide written materials related to plan of care, Teach Pt/caregiver in disease, injury process, Teach Pt/caregiver in self care, Teach Pt/caregiver in surgery process, Teach Pt/caregiver medications, Teach Pt/caregiver pain management strategies, Teach Pt/caregiver signs & symptoms to report Goals/Interventions,Knowledge deficit Yes Knowledge Deficit, Problem Start 11/20/2023 7:00 Reviewed Plan with, Knowledge Deficit Patient Patient Progression, Knowledge Deficit Pt progressing according to plan . Alteration in Respiratory Function (new) : Alteration in Respiratory Function/new 11/22/2023 18:00 EST Alteration in Resp Status Related to Pneumonia Goals & Outcomes, Respiratory Pt will maintain/resume baseline physical assessment, Pt will maintain adequate nutritional intake, Pt will maintain/resume normal fluid/electrolyte balance, Pt willnot develop complications r/t immobility Interventions, Respiratory Assess/monitor tolerance to IV infusions; verify rate/dose, Assess for and report S&S of respiratory distress, Position for comfort & optimal oxygenation, Initiate pulmonary rehab nurse consult, Monitor sputum color & consistency. Report changes to MD, Teach/encourage use of incentive spirometer, Teach the proper use of inhalers, Teach Pt/caregiver Smoking cessation education, Teach purse lip breathing as needed for breathing retraining Goals/Interventions, Respiratory Yes Respiratory, Problem Start 11/21/2023 18:28 Reviewed Plan with, Respiratory Patient Patient Progression, Respiratory Patient progressing according to plan . Evaluation 3p-7p: Patient alert to self only. Refusing to answer other orientation questions. Very limited assessment due to patient not being cooperative. Denies pain. Lung sounds clear on room air. Abdomen soft, round, non-tender. Tolerating dysphagia diet with 1:1 feed. Coker with temp sensor present. Bedfast and refusing turns. Skin intact. Call cabrera within reach. See flowsheets for full assessment. . Discharge Information Rehabilitation Discharge : Rehab Discharge Index 11/19/2023 14:39 EST Comments on treatment indicated Rec: dysphagia mechanically altered level 2/thin liquids, 1:1 feed, hold PO if lethargic, pt seated upright for meals and meds, ST following. 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 Per ED note: History is extremely limited and provided from EMS as patient is not answering questions verbally. Per EMS, patient has an unknown last known well time. Staff at the facility reported that he seemed to be more confused and looking off into space. Concern for possible seizure, no seizure was witnessed however patient does have seizure history. Extremely limited secondary to patient's altered mental status. Patient was bradycardic for EMS. Atropine was given prior to arrival. Upon arrival to the ED: Pacer pads are placed as patient was bradycardic in the field to the 40s and received atropine prior to his arrival. Pt loaded on Keppra 2g IV. Patient was also noted to have another focal seizure in which he was not responsive. Patient was given 2 mg of Ativan due to continued seizure and lasted about 1 minute prior to medication and termination of seizure. Patient was also noted to be hypotensive with systolic in the 60s. Bedside ultrasound in ED showed IVC that was collapsible. Patient was given 1.5 L of IV fluids with some improvement in blood pressure. Patient wasalso given 10 cc of push dose epi. Patient was also noted to be significantly hypothermic and was started on Tasha hugger. Labs show venous pH of 7.28 with pCO2 of 67, bicarb of 31, CBC is within normal limits, electrolytes are within normal limits, BUN of 43, creatinine 2.7. CT head Noncon is negative, CT cervical spine is negative, CT chest with contrast and CT abdomen/pelvis with IV contrast showed Moderately distended colon with apparent decompression in distal sigmoid colon, findings likely reflect peristalsis rather than true obstruction. Unchanged 1.0 cm hyperattenuating lesion in the right lower kidney, indeterminate. Overall significant improvement in previously seen multifocal airspace opacities with a few minimal residual scattered ground glass opacities. Findings may reflect radhames ated pneumonia from 10/23/2023. Trace right pleural effusion. Likely decubitus ulcer versus soft tissue contusion overlying the right aspect of the coccyx. Pt was admitted and overnight developed hyperkalemia with K 6.2 for which he received Kayexalate with improvement in K to 5.0 today. Nephrology was consulted for DEAN on CKD. Upon visit w/ pt, pt arousable to sternal rub opening his eyes. Nonverbal at baseline, unable to answer questions and engage in conversation. Review of Systems Unable to obtain, pt nonverbal at baseline, unable to engage in conversation. Health Status Allergies: Allergies (Active and Proposed Allergies Only) NKA (Severity: Unknown severity, Onset: Unknown) Past Medical History: Anemia of chronic disease Atrial fibrillation CHF (congestive heart failure) Chronic obstructive pulmonary disease Cognitive impairment Coronary artery disease Dementia Dysphagia GERD (gastroesophageal reflux disease) History of CVA with residual deficit Hypertension Hypothyroidism Schizophrenia Seizure disorder Stage III chronic kidney disease Type 2 diabetes mellitus Medications: Acetaminophen (acetaminophen 325 mg oral tablet) 650 Milligram 2 tablet By Mouth Every 8 hours as needed pain/fever >101F Amlodipine (amLODIPine 10 mg oral tablet) 10 Milligram 1 tablet By Mouth Daily in AM apixaban (Eliquis 5 mg oral tablet) 1 tab(s) 5 Milligram By Mouth 2 times a day Atorvastatin (atorvastatin 20 mg oral tablet) 1 tab(s) 20 Milligram By Mouth Daily at bedtime Benztropine (benztropine 1 mg oral tablet) 1 Milligram By Mouth 2 times a day Bisacodyl (bisacodyl 10 mg rectal suppository) 1 suppository(ies) 10 Milligram Rectally Every 72 hours as needed if no BM in 3 days if MOMis ineffective Cholecalciferol (cholecalciferol 2000 intl units oral tablet) 1 tab(s) 50 Microgram By Mouth Daily in AM Docusate (docusate sodium 100 mg oral capsule) 200 Milligram 2 capsule By Mouth Daily in AM Emollients, Topical (Minerin topical cream) Topically Daily at bedtime to bilateral feet Finasteride (finasteride 5 mg oral tablet) 1 tab(s) 5 Milligram By Mouth Daily in AM Folic Acid (folic acid 1 mg oral tablet) 1 Milligram 1 tablet By Mouth Daily in AM Glucagon (Glucagon Emergency Kit for Low Blood Sugar 1 mg injection) 1 Milligram Intramuscular Onceas needed low blood sugar <60 or >300 Glucagon (Gvoke HypoPen 1 mg/0.2 mL subcutaneous solution) 1 Milligram Subcutaneous Injection Once as needed Hypoglycemia Glucose (glucose 40% oral gel) 15 gram By Mouth Once as needed low blood sugar <60 Glucose (Insta-Glucose 24 g/31 g oral gel) See Instructions gel BS <60 with S/S (if resident is able to take by mouth) give glucose 1 tube by mouth - recheck & retreat every 15min until greater than 100 BS Haloperidol (haloperidol decanoate 50 mg/ml injectable solution) 0.5 Milliliter 25 Milligram Intramuscular Every 28 days STARTED 06/02/23 Insulin Lispro (insulin lispro 100 units/mL injectable solution) 2-10 units Subcutaneous Injection 3 times a day with meals Isosorbide Mononitrate (Imdur 30 mg oral tablet, extended release) 30 Milligram By Mouth Daily Lactulose (lactulose 10 gm/15 ml oral syrup) 30 Milliliter 20 gram By Mouth Daily levETIRAcetam (levETIRAcetam 100 mg/mL oral solution) 2.5 Milliliter 250 Milligram By Mouth 2 timesa day Levothyroxine (Synthroid 0.1 mg oral tablet) 100 Microgram By Mouth Daily Milk of Magnesia (MOM Liquid) 30 Milliliter By Mouth Every 72 hours as needed if no BM in 3 days Multivitamin (Daily Seema oral tablet) 1 tab(s) By Mouth Daily in AM Olanzapine (olanzapine 5 mg oral tablet) 5 Milligram By Mouth Daily at bedtime Pantoprazole (pantoprazole 40 mg oral delayed release tablet) 40 Milligram By Mouth 2 times a day continue until endoscopy obtained Risperidone (risperiDONE 2 mg oral tablet) 2 Milligram 1 tablet By Mouth 2 times a day Senna (Senna 8.6 mg oral tablet) 17.2 Milligram 2 tab(s) By Mouth Daily as needed for constipation Sodium Biphosphate-Sodium Phosphate (Fleet Enema 19 gm-7 gm rectal enema) 1 Each Rectally Every 72 hours as needed if no BM in 3 days if suppository is ineffective Sucralfate (Carafate 1 gm oral tablet) 1 gram 1 tablet By Mouth 3 times a day 6 AM, 12 PM & 5 PMNOT ON PAPER CHART Tamsulosin (tamsulosin 0.4 mg oral capsule) 0.8 Milligram 2 capsule By Mouth Daily at bedtime Thiamine (thiamine 100 mg oral tablet) 100 Milligram By Mouth Daily Social History: No qualifying data available. Family History: No family history recorded. Physical Examination Temperature 97.3 (08:19) Systolic Blood Pressure 104 (08:19) Diastolic Blood Pressure 54 (08:19) Pulse 80 (08:19) SpO2 96 (08:19) Respiratory Rate 17 (08:19) Physical Exam: General: Patient appears in no acute distress. HEENT: Moist mucous membranes noted. Cardiovascular: Regular rate and rhythm. Respiratory: Lungs clear to auscultation bilaterally. Abdominal: Soft. Extremities: No lower extremity edema. All extremities warm to touch Neuro: Opens eyes to sternal rub, nonverbal at baseline. Results Review General results Today's results 11/18/2023 10:19 EST Glucose, POC 83 mg/dL 11/18/2023 10:06 EST Potassium 5.0 mmol/L 11/18/2023 7:24 EST Glucose, POC 88 mg/dL 11/18/2023 6:42 EST Potassium 5.9 mmol/L H 11/18/2023 4:43 EST Sodium 136 mmol/L Potassium 6.2 mmol/L C Chloride 103 mmol/L Bicarbonate Level 24 mmol/L Anion Gap 9 Glucose Level 74 mg/dL BUN 43 mg/dL H Creatinine-Blood 3.0 mg/dL H Estimated GFR Creatinine 21 ML/MIN/1.73 M2 Calcium 8.6 mg/dL Phosphorus 3.3 mg/dL Magnesium 2.2 mg/dL Protein, Total 7.0 Gm/dL Albumin 3.6 Gm/dL AG Ratio 1.1 Alkaline Phosphatase 236 units/L H AST (SGOT) 16 units/L ALT (SGPT) 13 units/L Bilirubin, Total 0.2 mg/dL 11/18/2023 4:41 EST WBC 6.9 k/mm3 RBC 3.07 m/mm3 L Hgb 8.5 Gm/dL L Hct 26.7 % L MCV 87.0 femtoliters MCH 27.7 pg MCHC 31.8 g/dL L Platelet Count 179 k/mm3 RDW-SD 54.0 femtoliters H MPV 10.8 femtoliters Nucleated RBC (Automated) 1.4 #/100 WBC'S Abs. NRBC 0.1 k/mm3 Abs. Neut 4.8 k/mm3 Abs. Lymph 1.4 k/mm3 Abs. [place]atham 0.5 k/mm3 Abs. Eo 0.1 k/mm3 Abs. Baso 0.0 k/mm3 Neut % 69.1 % Lymph % 19.7 % [place] % 7.5 % Eos % 1.9 % Baso % 0.4 % Imm Gran 1.4 % Abs. Imm Gran 0.1 k/mm3 Impression and Plan [place] Garrett is a 73-year-old male with history of CVA, left-sided facial droop and left-sided hemiplegia and residual nonverbal status, seizure disorder, proximal A-fib on Eliqu, CKD stage IV, type 2 diabetes, hypertension, COPD, hypothyroidism, GERD, recent upper GI bleed September 2023 and recent admission for severe sepsis and acute hypoxic respiratory failure in the setting of mutifocal pneumonia and UTI, who presented to [facility] on 11/17/23 from his nursing home due to altered mental status. Admitted for AMS, hypothermia, sepsis with unclear source. Nephrology consulted for DEAN on CKD. 1. CKD IV BL Cr 2.4-2.8mg/dL Cr 2.7 --> 3.0mg/dL today CT A/P showed no hydronephrosis. Contrast exposure w/ CT Chest and CT A/P on 11/17 CT A/P 11/17/23: Kidneys and ureters: The nonobstructing small right upper and interpolar calculi. No hydronephrosis or suspicious lesion. 1.0 cm exophytic hyperattenuating lesion in the right lower pole, unchanged from 08/10/2023. Unchanged 3.1 cm right lower pole cyst. Small hypodensities that are too small to characterize are noted. Recommend nonemergent MRI with and without contrast for furtherevaluation. 2. Hyperkalemia K 6.2 overnight, s/p Kayexalate w/ improvement to 5.0 today Likely in setting of DEAN, CKD Plan: - F/u CK level - Daily renal panel - Monitor I/Os - Avoid nephrotoxins, contrast - Maintain coker - Antibiotics per Primary Team - Kayexalate rectally PRN K > 5.3 (pt currently NPO) Thank you for the courtesy of this consult, RTANE will continue to follow. Chata Fritz PA-C [facility] Available by [employer] Discussed with Dr. Rivera RENAL ATTENDING AMMENDMENT: I have seen and evaluated this patient. I have discussed the case and its management with the resident/team as documented in the resident/team note on the day of service. The details of the case including pertinent labs and clinical findings were confirmed by me. The plan was formulated with the student/resident/fellow/PA/PEER COUNSELOR as outlined above. Yamileth Rivera MD. * Jean PRADO, Francisco Javier: PERFORM Event Display: Consultation Note Authored Date: Patient: ??ARGENTINA GARRETT ? Age:??73 Years?Sex:??Male?:??1950? [facility] Inpatient Nephrology Note ? Interval History Consult for dean cr 3. ckd bl cr 2.4-- 2.8, hyperkalemia - lokelma given Urine labs ordered. Full consult to follow? Thank you for the courtesy of this consult, RTANE ??will continue monitoring the patient along withyou please do not hesitate to call us with any further questions ?? Francisco Javier Pena M.D. [facility] [address] [place] [address] , [address] Available by [employer]?? Note * Jacqui Mojica RN: PERFORM Event Display: Discharge/Transfer Note Hospital Authored Date: [id number] Nursing Discharge Note Entered On: 11/23/2023 12:07 EST Performed On: 11/23/2023 12:06 EST by Jacqui Mojica RN Nursing Discharge Note 2 Discharge Time : 11/23/2023 12:05 EST Discharge Level of Care at Discharge : alf facility Discharge Nursing Homes/Rehab Facilities : [facility] [phone] Patient Left Unit Via : Ambulance Patient Accompanied Off Unit with : Ambulance/Chair Van Personnel Handover Given to Transport Personnel : Yes DC Instructions Provided & Signed by Pt : Yes Patient Understands D/C Instructions : Yes Patient Instructions Discharge Signed : Yes Did Pt have Specialty Bed or Wound Vac : No Jacqui Mojica RN - 11/23/2023 12:06 EST * Robel Miramontes MD: PERFORM Event Display: Discharge/Transfer Note Hospital Authored Date: [id number] Patient: ??ARGENTINA GARRETT ? Age:??73 Years?Sex:??Male?:??1950?? Patient Information Discharge Location: [facility] Primary Care Physician: Mark Arredondo MD Admit Date/Time: 11/17/23 19:55 Discharge Disposition Discharge Disposition: Long Term Facility/Rehab ?? DEMENTIA UNIT AT [facility] ?? 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 _ Discharge Medications Acetaminophen (acetaminophen 325 [...] (thiamine 100 mg oral tablet)?100?Milligram?By Mouth?Daily ? Allergies Allergies ?(Active and Proposed Allergies Only) NKA? (Severity: Unknown severity, Onset: Unknown) ? PCP Follow-Up/Heads-Up ?? Prompt f/u with PCP for post-discharge eval, medication adjustments & plan of care ?? -- ?? Future Appointments Thursday 3:30 PM EDT ?? Where: [facility] Status: Pending Objective Assessment and Plan ?? Assessment:? Mr. Garrett is our elderly and frail 73 y.o. Micronesian-Creole gentleman, immigrated [place] the [place] (bilingual in Albanian and Creole, but relatively poorly verbal from partial expressive aphasia /sequelae of stroke / dementia), a chronic resident at the dementia unit of [facility] ([facility]), under legal guardianship, with a h.o. advanced mixed dementia (Alzheimer / vascular) / h.o. right temporoparietal & right pontine strokes (03/2023) / left-sided facial droop / left-sided hemiplegia / expressive aphasia / seizure disorder, DM-2, hypertension, hyperlipidemia, CKD stage IV (baseline sCreat around = 3.0 +/-), paroxysmal atrial fibrillation on apixaban, COPD, hypothyroidism, GERD / hiatal hernia / erosive gastritis & esophagitis / Morrow's esophagus (EGD 08/2023, Dr. Gusman), schizophrenia, BPH, who had just been in the hospital (10/23 - 11/05/2023) with sepsis / acute hypoxic respiratory failure / multifocal pneumonia / UTI, re-admitted on 11/17/2023 with altered mental status / obtundation superimposed on advanced dementia / hypothermia / (?) possible sepsis of unclear source / acute hypoxic respiratory failure. ?? He completed a full course of IV piperacillin-tazobactam x 7-days (11/17 - 11/23/2023) He is back to his usual baseline, on room air, and in fact much more verbal and curmudgeonly. It should be crystal clear that his hypothermia is related to central autonomic dysfunction and should not be a reason for admission. ? Hypothermia (T68.XXXA):??. Autonomic dysfunction (G90.9):??. Acute hypotension (I95.9):??. Acute hypoxic respiratory failure (J96.01):??. Atelectasis (J98.11):??. POSSIBLE / SUSPECTED sepsis (A41.9):? No clear source for the hypothermia: in overwhelming likelihood, it is mostly of central etiology /autonomic dysfunction... possibly precipitated or contributed to by multiple factors incluiding pneumonia / DEAN / uremia... Urinalysis unremarkable CT scan [id number] (-) for any glaring infectious source CXR c.w. (?) right basal atelectasis Blood cultures in process & (-) so far Normal WBC count TFT's WNL Cortisol WNL Procalcitonin in the intermediate range = 0.50 Completed already a full course of IV piperacillin-tazobactam x 7-days (11/17 - 11/23/2023) Plan: * Common sense approach for hypothermia: use of blankets +/-?? bear-hugger only for Tmin < 96 F, and not by itself an indication for hospitalization * GLOBAL RISK MANAGEMENT DIRECTOR may become the only rational alternative down the road Continue goals of care discussion with his daughter, Bonny, who lives in [place], [place]. * Back to his dementia unit / long-term today. ?? Acute metabolic encephalopathy (G93.41):??. Hypoactive delirium superimposed on advanced dementia (R41.0):??. Altered mental state (R41.82):??. 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 Hx of right temporoparietal and cerebellar strokes (Z86.73):??. Left hemiparesis / left facial droop (G81.94):??. Seizure disorder (R56.9):??. Schizophrenia (F20.9):? On levetiracetam +??risperidone + olanzapine + benztropine (he often refuses to take medications...) Gently reorient and encourage sleep / wake cycle Avoid sedatives / benzodiazepines / antihistamines / anticholinergics.? DEAN (acute kidney injury) (N17.9):??. Hyperkalemia (E87.5):??. Chronic kidney disease stage IV (N18.30):? Baseline sCreat around = 3.0 +/- Peaked = 3.9 Now = 3.5 Plan: * Closely monitor renal function and lytes * Avoid nephrotoxics / NSAID's ?? Bradycardia (R00.1):??. Hypertension (I10):??. Hyperlipidemia (E78.5):??. Paroxysmal atrial fibrillation (I48.0):? On??amlodipine + isosorbide + atorvastatin + apixaban (he often refuses to take medications...) ?? DM2 (diabetes mellitus, type 2) (E11.9):? On insulin s.s. / POC's TID ?? Hypothyroidism (E03.9):? On levothyroxine (he often refuses to take medications...) ?? Emphysema/COPD (J43.9):? Not on any inhalers at baseline ?? GERD (gastroesophageal reflux disease) (K21.9):? On PPI (he often refuses to take medications...) ?? BPH (benign prostatic hyperplasia) (N40.0):? On tamsulosin + finasteride (he often refuses to take medications...) ? -- ? Vital Signs?? Temperature:??96 DegF??Low (11/23/23 07:00:00) Temperature Route: Core Bladder (11/23/23 07:00:00) Pulse Rate:??41 bpm??Low (11/23/23 07:00:00) Heart Rate Monitored:??48 bpm??Low (11/23/23 06:00:00) Respiratory Rate:??15 br/min??Low (11/23/23 00:00:00) Systolic Blood Pressure:??147 mm Hg??High (11/23/23 09:25:00) Diastolic Blood Pressure: 57 mm Hg (11/23/23 09:25:00) Pulse Pressure: 65 mm Hg (11/23/23 07:00:00) Oxygen Saturation: 97 % (11/23/23 07:00:00) Liters per Minute: 2 L/min (11/23/23 07:00:00) Mode of Delivery (Oxygen): Room air (11/23/23 07:00:00) Early Warning Score: 3 (11/23/23 09:27:41) ? . Physical Exam Afebrile, Tmax??= 97.1 F, HR = 48', BP = 119??/ 52 Elderly, frail, normocephalic, BEVERLY, no thrush, on room air Clear chest to auscultation, few scattered rhonchi / secretions S1 / S2 no murmur [place] abdomen, no rebound LEs (-) for edema.?? Neurologically with changes of dementia /??left-sided hemiplegia / expressive aphasia (but??able??to verbalize in??Albanian??& Creole) _ Follow-Up Appointments Added Follow Up ?Time Frame ?Comments Arnulfo PRADO, Mark ?? FIRST AVAILABLE ? 35??minutes spent on discharge summary / bedside care / coordination of care * Nakia Love: PERFORM, SIGN, VERIFY Event Display: Case Management Discharge Plan Authored Date: Patient: ARGENTINA GARRETT Age: 73 years Sex: Male : 1950 Associated Diagnoses: None Author: Nakia Love Discharge Plan Case Management Discharge Plan : Case Management Discharge Plan Data 11/23/2023 10:14 EST Discharge Level of Care at Discharge alf facility Discharge Nursing Homes/Rehab Facilities [facility] [phone] Discharge Transportation Arranged [facility] Maggie Foss [facility] [phone] Discharge Arranged Transport Date/Time 11/23/2023 12:00 Mode of Transportation Arranged Ambulance Name of Agency #1 [facility] Categories #1 Physical Therapy, Long Term * Jacqui Mojica RN: PERFORM Event Display: Patient Education/Instruction Authored Date: [id number] Inpatient Adult Discharge Instructions. [address] [address] Name: ARGENTINA GARRETT : 1950?? Visit: 11/17/2023 19:55?? Current Date: 11/23/2023 11:02 ?? Account: [id number]?? Inpatient Adult Discharge Instructions We would like [...] and their families. Surveys are administered by [employer] ?? If further treatment with your primary care physician or another doctor is recommended, it is important for you to keep the appointment. Call your primary care physician or return to the Emergency Department immediately if your condition worsens, fails to improve, or new symptoms develop. If you need to find a doctor, you can call [facility] [employer] for a referral at [phone] or toll free at [phone]) or log in to [email or web address].. ?? [facility], in keeping with [facility] guidance, no longer requires face masks [...] portal or by using a health care rick of your choosing. [employer] is a website that allows you to securely view your medical information including your hospital discharge summary, office visit summaries, medications and follow-up visits. You can also request appointments, renew medications, and request access to your medical information using a health care rick of your choosing, or just ask a question. You can enroll at [email or web address] or register during your next office visit. You have been discharged from [facility], Patient Care Unit: D6B??. If you have any questions regarding these instructions, including results of studies pending, afteryou leave, please call us and we will be happy to assist you 27/04. [facility] Your Care Team Attending Physician Robel Miramontes MD?? Consulting Providers Robel Miramontes MD?? Discharging Providers Robel Miramontes MD Reason for Your Visit hypothermia, seizures?? Your Diagnosis Acute metabolic encephalopathy POSSIBLE / SUSPECTED sepsis Chronic kidney disease stage IV Hyperkalemia Acute hypoxic respiratory failure Advanced mixed dementia (Alzheimer / vascular) DEAN (acute kidney injury) Altered mental status Atelectasis Autonomic dysfunction BPH (benign prostatic hyperplasia) Bradycardia DM2 (diabetes mellitus, type 2) Emphysema/COPD GERD (gastroesophageal reflux disease) Hx of right temporoparietal and cerebellar strokes Hyperlipidemia Hypertension Hypoactive delirium superimposed on advanced dementia Hypothyroidism Left hemiparesis / left facial droop Paroxysmal atrial fibrillation Schizophrenia Tests Performed Below is a partial list of the tests performed during your hospitalization. You may have had other tests and procedures not included in this list. Please discuss all test results with your provider. ABG Ammonia Venous Amphetamine Urine Screen Barbiturate Urine Screen BASE EXCESS POC CARTRIDGE Benzodiazepine Urine Screen BUN CALCIUM IONIZED POC CART Cannabinoid Urine Screen CBC CBC w/ Differential Chloride Urine CK (CREATINE KINASE) CK Total Only Cocaine Urine Screen Comprehensive Metabolic Panel CORTISOL COVID-19, RSV, and Flu A/B, Rapid PCR Creatinine Creatinine Urine CRP ESR Free T3 Free T4 GLUCOSE POC GLUCOSE POC CARTRIDGE HEMATOCRIT POC CARTRIDGE HEMOGLOBIN POC CARTRIDGE High??Sensitivity??Troponin T HOLD GEL TUBE Lactate Level Lytes Magnesium Level Opiate Screen Urine Phosphorus Level Potassium Level POTASSIUM POC CARTRIDGE ProBNP Procalcitonin Level SODIUM POC CARTRIDGE Sodium Urine Troponin T, High Sensitivity TSH TSH WITH REFLEX TO FT4 UA UREA NITROGEN, URINE MG/DL Urinalysis w/hold for Urine Culture VBG POC CARTRIDGE CT Abd/Pelvis W/ IV Contrast Only CT Cervical Spine W/O Contrast CT Chest W/ IV Contrast CT Head/Brain W/O Contrast Portable Chest XR Chest Portable Add On Lab Order?? BUN?? CBC?? Creatinine?? Electrolytes (Lytes)?? Magnesium Level?? Phosphorus Level?? Primary Care Provider Mark Arredondo MD? Discharge Vitals Temperature: 97.1 DegF Pulse Rate:??41 bpm??Low Respiratory Rate:??15 br/min??Low Systolic Blood Pressure: 116 mm Hg Diastolic Blood Pressure: 55 mm Hg Oxygen Saturation: 94 % Studies Pending All studies ordered during this hospital stay have been completed unless listed below. Please discuss all pending results with your provider listed above in these instructions. ?? Add On Lab Order?? BUN?? CBC?? Creatinine?? Electrolytes (Lytes)?? Magnesium Level?? Phosphorus Level?? What to do next Instructions From Your Doctor ?? Orders? 11/23/23 10:15:00 EST?? Scheduled Follow-Up Appointments Thursday 3:30 PM EDT ?? Where: [facility] Status: Pending You Need to Schedule the Following Appointments Follow Up with??Mark Arredondo MD Where: [address] [facility] [place] [address]- Discharge Medications ARGENTINA GARRETT :1950 Visit Date:11/17/2023 Medications: Please continue your medications until treatment is completed or stopped by your provider. Medications not listed below should be discontinued. Discuss any questions related to medications with your provider. What How Much When Instructions Next Dose Unchanged Acetaminophen (acetaminophen 325 mg oral tablet) 2 tab(s) Oral Every 8 hours as needed for pain/fever >101F as needed Unchanged Amlodipine (amLODIPine 10 mg oral tablet) 1 tab(s) Oral Daily in the morning 11/24 AM Unchanged apixaban (Eliquis 5 mg oral tablet) 1 tab(s) Oral Twice a day 11/23 PM Unchanged Atorvastatin (atorvastatin 20 mg oral tablet) 1 tab(s) Oral Daily at Bedtime 11/23 bedtime Unchanged Benztropine (benztropine 1 mg oral tablet) 1 Milligram Oral Twice a day 11/23 PM Unchanged Bisacodyl (bisacodyl 10 mg rectal suppository) 1 suppository(ies) Per rectum Every 72 hours as needed for if no BM in 3 days if MOMis ineffective ?? as needed Unchanged Cholecalciferol (cholecalciferol 2000 intl units oral tablet) 1 tab(s) Oral Daily in the morning 11/24 AM Unchanged Docusate (docusate sodium 100 mg oral capsule) 2 capsule Oral Daily in the morning 11/24 AM Unchanged Emollients, Topical (Minerin topical cream) Topically Daily at Bedtime to bilateral feet ?? 11/23 Bedtime Unchanged Finasteride (finasteride 5 mg oral tablet) 1 tab(s) Oral Daily in the morning 11/24 AM Unchanged Folic Acid (folic acid 1 mg oral tablet) 1 tab(s) Oral Daily in the morning 11/24 AM Unchanged Glucagon (Glucagon Emergency Kit for Low [...] 15min until greater than 100 BS ?? emergency use Unchanged Haloperidol (haloperidol decanoate 50 mg/ ml injectable solution) 0.5 Milliliter Intramuscular Every 28 days STARTED ?? resume home schedule Unchanged Insulin Lispro (insulin lispro 100 units/ mL injectable solution) 2-10 units Subcutaneous Injection 3 times a day with meals resume prior sliding scale with meals Unchanged Isosorbide Mononitrate (Imdur 30 mg oral tablet, extended release) 30 Milligram Oral Daily 11/24 AM Unchanged Lactulose (lactulose 10 gm/ 15 ml oral syrup) 30 Milliliter Oral Daily 11/24 AM Unchanged levETIRAcetam (levETIRAcetam 100 mg/ mL oral solution) 2.5 Milliliter Oral Twice a day 11/23 PM Unchanged Levothyroxine (Synthroid 0.1 mg oral tablet) 100 Microgram Oral Daily 11/24 AM Unchanged Milk of Magnesia (MOM Liquid) 30 Milliliter Oral Every 72 hours as needed for if no BM in 3 days as needed Unchanged Multivitamin (Daily Seema oral tablet) 1 tab(s) Oral Daily in the morning 11/24 AM Unchanged Olanzapine (olanzapine 5 mg oral tablet) 5 Milligram Oral Daily at Bedtime 11/23 Bedtime Unchanged Pantoprazole (pantoprazole 40 mg oral delayed release tablet) 40 Milligram Oral Twice a day continue until endoscopy obtained ?? 11/23 PM Unchanged Risperidone (risperiDONE 2 mg oral tablet) 1 tab(s) Oral Twice a day 11/23 PM Unchanged Senna (Senna 8.6 mg oral [...] 5 PM NOT ON PAPER CHART ?? 11/23 5pm Unchanged Tamsulosin (tamsulosin 0.4 mg oral capsule) 2 capsule Oral Daily at Bedtime 11/23 bedtime Unchanged Thiamine (thiamine 100 mg oral tablet) 100 Milligram Oral Daily 11/24 AM Prescription Given During Visit No new medications prescribed at time of discharge.?? Laboratory Results Below is a partial list of the most recent Laboratory test results done prior to this discharge. You may have had other tests and procedures not included in this list. Please discuss all test resultswith your provider. ABG (11/18/2023) ???pH - 7.34???pCO2 - 52 mm Hg???pO2 - 82 mm Hg???Bicarbonate, Estimated - 28 mmol/L???Specimen Type - Blood Gas - ARTERIAL???Percent O2 (FIO2) - 60 Ammonia Venous (11/18/2023) ???Ammonia, Venous - 24 ??mole/L Amphetamine Urine Screen (11/18/2023) ???Amphetamine Screen, Urine - NONE DETECTED Barbiturate Urine Screen (11/18/2023) ???Barbiturate Screen, Urine - NONE DETECTED BASE EXCESS POC CARTRIDGE (11/17/2023) ???Base Excess (POC) POC Cartridge - 5 Benzodiazepine Urine Screen (11/18/2023) ???Benzodiazepine Screen, Urine - NONE DETECTED BUN (11/21/2023) ???BUN - 39 mg/dL CALCIUM IONIZED POC CART (11/17/2023) ???Ionized Calcium (POC) POC Cartridge - 1.28 mmol/L Cannabinoid Urine Screen (11/18/2023) ???Cannabinoid Screen, Urine - NONE DETECTED CBC (11/21/2023) ???WBC - Test not performed,quantity insufficient???RBC - Test not performed,quantity insufficient???Hgb - Test not performed,quantity insufficient???Hct - Test not performed,quantity insufficient???MCV - Test not performed,quantity insufficient???MCH - Test not performed,quantity insufficient???MCHC - Test not performed,quantity insufficient???Platelet Count - Test not performed,quantity insufficient???RDW-SD - Test not performed,quantity insufficient???MPV - Test not performed,quantity insuffi cient???Nucleated RBC (Automated) - Test not performed,quantity insufficient???Abs. NRBC - Test notperformed,quantity insufficient CBC w/ Differential (11/18/2023) ???WBC - 6.9 k/mm3???RBC - 3.07 m/mm3???Hgb - 8.5 Gm/dL???Hct - 26.7 %???MCV - 87.0 femtoliters???MCH - 27.7 pg???MCHC - 31.8 g/dL???Platelet Count - 179 k/mm3???RDW-SD - 54.0 femtoliters???MPV - 10.8 femtoliters???Nucleated RBC (Automated) - 1.4 #/100 WBC'S???Abs. NRBC - 0.1 k/mm3???Abs. Neut - 4.8 k/mm3???Abs. Lymph - 1.4 k/mm3???Abs. [place] - 0.5 k/mm3???Abs. Eo - 0.1 k/mm3???Abs. Baso - 0.0 k/mm3???Neut % - 69.1 %???Lymph % - 19.7 %???[place] % - 7.5 %???Eos % - 1.9 %???Baso % - 0.4 %???Imm Gran- 1.4 %???Abs. Imm Gran - 0.1 k/mm3 Chloride Urine (11/18/2023) ???Chloride, Urine Random - 90 mmol/L CK (CREATINE KINASE) (11/18/2023) ???CK, Total - 37 units/L CK Total Only (11/19/2023) ???CK, Total - 38 units/L Cocaine Urine Screen (11/18/2023) ???Cocaine Metabolite Screen, Urine - NONE DETECTED Comprehensive Metabolic Panel (11/18/2023) ???Sodium - 136 mmol/L???Potassium - 6.2 mmol/L???Chloride - 103 mmol/L???Bicarbonate Level - 24 mmol/L???Anion Gap - 9???Glucose Level - 74 mg/dL???BUN - 43 mg/dL???Creatinine-Blood - 3.0 mg/dL???Estimated GFR Creatinine - 21 ML/MIN/1.73 M2???Calcium - 8.6 mg/dL???Protein, Total - 7.0 Gm/dL???Albumin - 3.6 Gm/dL???AG Ratio - 1.1???Alkaline Phosphatase - 236 units/L???AST (SGOT) - 16 units/L???ALT (SGPT) - 13 units/L???Bilirubin, Total - 0.2 mg/dL CORTISOL (11/18/2023) ???Cortisol Level - 10.0 ??g/dL COVID-19, RSV, and Flu A/B, Rapid PCR (11/17/2023) ???Influenza A PCR - NEGATIVE???Influenza B PCR - NEGATIVE???RSV PCR - NEGATIVE???COVID-19 PCR Specimen Source - NASAL???COVID-19 PCR Result - NEGATIVE Creatinine (11/21/2023) ???Creatinine-Blood - 3.4 mg/dL???Estimated GFR Creatinine - 18 ML/MIN/1.73 M2 Creatinine Urine (11/18/2023) ???Creatinine, Urine Random - 20.7 mg/dL CRP (11/17/2023) ???C-Reactive Protein - 0.6 mg/dL ESR (11/17/2023) ???Sed Rate - 84 mm/hr Free T3 (11/21/2023) ???T3, Free - 1.3 pg/mL Free T4 (11/21/2023) ???Free T4 - 1.16 ng/dL GLUCOSE POC (11/23/2023) ???Glucose, POC - 157 mg/dL GLUCOSE POC CARTRIDGE (11/17/2023) ???Glucose (POC) POC Cartridge - 94 HEMATOCRIT POC CARTRIDGE (11/17/2023) ???Hematocrit (POC) POC Cartridge - 30 % HEMOGLOBIN POC CARTRIDGE (11/17/2023) ???Hemoglobin (POC) POC Cartridge - 10.2 Gm/dL High??Sensitivity??Troponin T (11/17/2023) ???High Sensitivity Troponin (HSTnT) - 24 ng/L HOLD GEL TUBE (11/18/2023) ???Hold Gel Top - SPECIMEN DISCARDED AFTER 1 WEEK Lactate Level (11/17/2023) ???Lactate - 0.9 mmol/L Lytes (11/21/2023) ???Sodium - 143 mmol/L???Potassium - 4.4 mmol/L???Chloride - 108 mmol/L???Bicarbonate Level - 23 mmol/L???Anion Gap - 12 Magnesium Level (11/21/2023) ???Magnesium - 2.1 mg/dL Opiate Screen Urine (11/18/2023) ???Opiate Screen, Urine - NONE DETECTED Phosphorus Level (11/20/2023) ???Phosphorus - 4.1 mg/dL Potassium Level (11/18/2023) ???Potassium - 5.0 mmol/L POTASSIUM POC CARTRIDGE (11/17/2023) ???Potassium (POC) POC Cartridge - 4.4 mmol/L ProBNP (11/19/2023) ???Nt-Probnp - 456 pg/mL Procalcitonin Level (11/19/2023) ???Procalcitonin - 0.50 ng/mL SODIUM POC CARTRIDGE (11/17/2023) ???Sodium (POC) POC Cartridge - 138 mmol/L Sodium Urine (11/18/2023) ???Sodium, Urine Random - 76 mmol/L Troponin T, High Sensitivity (11/17/2023) ???High Sensitivity Troponin (HSTnT) - 30 ng/L TSH (11/21/2023) ???TSH - 1.28 uIU/mL TSH WITH REFLEX TO FT4 (11/17/2023) ???TSH - 10.20 uIU/mL UA (11/18/2023) ???Appear/Color, Urine - COLORLESS???Specific [place], Urine - 1.010???pH, Urine - 5.5???Albumin, Urine - TRACE???Glucose, Urine - NEGATIVE???Ketones, Urine - NEGATIVE???Bilirubin, Urine - NEGATIVE???Hemoglobin, Urine - NEGATIVE???Nitrite, Urine - NEGATIVE???Leukocyte, Urine - 1+???Urobilinogen - NORMAL? ?WBC's, Urine - 3 /HPF? ?RBC's, Urine - 1 /HPF? ?Squamous Epith - <1 /HPF? ?Mucus - SLIGHT UREA NITROGEN, URINE MG/DL (11/18/2023) ???Urea Nitrogen, Urine Random - 130.6 mg/dL Urinalysis w/hold for Urine Culture (11/17/2023) ???Appear/Color, Urine - COLORLESS???Specific [place], Urine - 1.015???pH, Urine - 5.5???Albumin, Urine - 1+???Glucose, Urine - NEGATIVE???Ketones, Urine - NEGATIVE???Bilirubin, Urine - NEGATIVE???Hemoglobin, Urine - 1+???Nitrite, Urine - NEGATIVE???Leukocyte, Urine - NEGATIVE???Urobilinogen - NORMAL? ?WBC's, Urine - 1 /HPF? ?RBC's, Urine - 4 /HPF? ?Squamous Epith - <1 /HPF? ?Hold Urine Culture - Testing available 48 hours from time of collection. VBG POC CARTRIDGE (11/17/2023) ???pH Venous (POC) POC Cartridge - 7.28???pCO2 Venous (POC) POC Cartridge - 67.0 mm Hg???pO2 Venous(POC) POC Cartridge - 22 mm Hg???Est Bicarbonate (POC) POC Cartridge - 31.3 mmol/L???% O2 Sat Venous (POC) POC Cartridge - 28???Specimen Type - Blood Gas - VENOUS Allergies [...] I fully understand and agree that [facility] accepts no responsibility for all [...] Review of Valuable and Belonging List: With witness Date for Pt to Sign Valuables/Belongings: 11/18/23 00:50:00 ?? Other Discharge Information ? Case Management Discharge Plan?? Discharge Plan?? Discharge Agency Information?? Discharge Level of Care at Discharge: alf facility Name of Agency #1: [facility] Discharge Transportation Arranged: [facility] [address] [facility] [id number] [phone] Service Categories #1: Physical Therapy, Long Term Mode of Transportation Arranged: Ambulance ?? Discharge Arranged Transport Date/Time: 11/23/23 12:00:00 ?? Discharge Nursing Homes/Rehab Facilities: [facility] ??[phone] ? Pulmonary Rehab Status?? Pulmonary Rehab Discharge Status?? Respiratory Rate:??15 br/min??Low ? Common Emergency Awareness Tips IS IT [...] are strongly encouraged to quit. Please call [facility] [employer] [facility] at [phone] or [phone]) or log in to [email or web address] for referrals to smoking cessation programs. ?? 909 Suicide & Crisis Lifeline is available 27/04 if you or someone you know needs to find a reason to keep living. By calling 154 you'll be connected to a skilled, trained counselor at a crisis center in your area. INPATIENT DISCHARGE INSTRUCTIONS SIGNATURE PAGE ARGENTINA GARRETT Location:[facility] Registration Date and Time:11/17/2023 19:55 EST Primary Care Physician: Mark Arredondo MD, Attending Physician: Robel Miramontes MD, I ARGENTINA GARRETT, have received the above patient education materials/instructions and have verbalized understanding. If ambulance or transport services are being used I further acknowledge being given a choice of service. ?? If you need to contact me, please call me at this number: . Patient/Dye Can Operator Name: Patient/Dye Can Operator Signature: Relationship to Patient: Witness Name/Signature: Date: Patient Care team information Care Team Personnel Name: Janice Escamilla RN Position: [facility] RN Member Role: Primary Care Nurse Name: Mary Carmen Camara RN Position: [facility] RN Member Role: Primary Care Nurse Name: Brett Post RN Position: [facility] RN Member Role: Primary Care Nurse Name: Mayra Lofton RN Position: [facility] RN Member Role: Primary Care Nurse Name: Corwin Rosas RN Position: [facility] RN Member Role: Primary Care Nurse Name: Rishabh Barrera RN Position: [facility] RN Member Role: Primary Care Nurse Name: Leann [...] Care Nurse Name: Apoorva Abel RN Position: [facility] RN Member Role: Primary Care Nurse Name: Yamileth Rivera MD Position: [facility] Renal MD Member Role: Lifetime Consulting Physician Address: Address[address] [place] [address]- Name: Yosi Greer RN Position: [facility] RN Member Role: Primary Care Nurse Name: Marly Cochran RN Position: [facility] RN Member Role: Primary Care Nurse Name: Trinity Machado LPN Position: [facility] RN Member Role: Primary Care Nurse Name: Rosa Francis RN Position: [facility] RN Member Role: Primary Care Nurse Name: Ketan Bolanos MD Position: [facility] Renal MD Member Role: Lifetime Consulting Physician Address: Address: [address] [facility] [place] [address]- Name: Aggie Zafar RN Position: [facility] RN Member Role: Primary Care Nurse Name: Mark Arredondo MD Position: [facility] Outreach Member Role: PCP Address: Address: [address] [facility] [address] [facility] [place] [address]- [place] Name: Neri Solo RN Position: [facility] RN Member Role: Primary Care Nurse Name: Sharita Thomas RN Position: [facility] RN Member Role: Primary Care Nurse Name: Suzan Arriaga RN Position: [facility] RN Member Role: Primary Care Nurse Name: Will Polo MD Position: [facility] Renal MD Member Role: Lifetime Consulting Physician Address: Address: [address] [place] [address] [facility] [address] Name: Harris Goodman RN Position: S RN [...]
--- NOTE | 2024-06-14 12:07 | PC.NURSE ---
right femoral central line placed by dr. love. patient replaced back on bear hugger at this time. effectiveness pending.
--- NOTE | 2024-06-14 12:14 | ED.SOB ---
HPI - SOB/Dyspnea General Chief Complaint: Dyspnea Stated Complaint: DIFF BREATH Time Seen by Provider: 06/14/24 10:51 History of Present Illness HPI Narrative: Patient is a 73-year-old diabetic history of schizophrenia history of stroke with left-sided weakness baseline. History of living in a fci. Has a chronic indwelling Burger. Presented today with shortness of breath change in mental status weakness patient unable to provide detailed history secondary to his condition Related Data Home Medications ?Medication ?Instructions ?Recorded ?Confirmed apixaban 5 mg tablet (Eliquis) 5 mg PO BID 07/10/23 06/14/24 atorvastatin 20 mg tablet 20 mg PO DAILY 07/10/23 06/14/24 cholecalciferol (vitamin D3) 50 50 mcg PO DAILY 07/10/23 06/14/24 mcg (2,000 unit) tablet finasteride 5 mg tablet 5 mg PO DAILY 07/10/23 06/14/24 folic acid 1 mg tablet 1 mg PO DAILY 07/10/23 06/14/24 haloperidol decanoate 50 mg/mL 50 mg IM Q4W 07/10/23 06/14/24 intramuscular solution multivitamin 1 tab PO DAILY 07/10/23 06/14/24 risperidone 2 mg tablet 2 mg PO BID 07/10/23 06/14/24 sucralfate 1 gram tablet (Carafate) 1 g PO TID 07/10/23 06/14/24 amlodipine 10 mg tablet 10 mg PO DAILY 07/23/23 06/14/24 levetiracetam 100 mg/mL oral 250 mg PO BID 07/23/23 06/14/24 solution Glucose Gel 77.4% 1 appl PO Q15M PRN HYPOGLYCEMIA, 06/14/24 06/14/24 BS <60 acetaminophen 325 mg tablet 650 mg PO Q6H PRN General 06/14/24 06/14/24 Discomfort/Temp Over 101 acetaminophen 650 mg rectal 650 mg NE Q6H PRN General 06/14/24 06/14/24 suppository Discomfort/Temp Over 101 benztropine 1 mg tablet 1 mg PO BID 06/14/24 06/14/24 bisacodyl 10 mg rectal suppository 10 mg NE DAILY PRN Costipation/If 06/14/24 06/14/24 MoM not effective. glucagon 1 mg/0.2 mL subcutaneous 1 mg subcut Q15M PRN blood Sugar 06/14/24 06/14/24 solution (Gvoke) insulin glargine 100 unit/mL 6 unit subcut DAILY 06/14/24 06/14/24 subcutaneous solution (Lantus U-100 Insulin) insulin lispro 100 unit/mL 1 sliding scale dose subcut 06/14/24 06/14/24 subcutaneous solution (Humalog USEASDIRECTD U-100 Insulin) isosorbide mononitrate 30 mg 30 mg PO DAILY 06/14/24 06/14/24 tablet,extended release 24 hr lactulose 10 gram/15 mL (15 mL) 45 ml PO DAILY 06/14/24 06/14/24 oral solution levothyroxine 100 mcg tablet 100 mcg PO DAILY@0600 06/14/24 06/14/24 pantoprazole 40 mg tablet,delayed 40 mg PO DAILY@0630 06/14/24 06/14/24 release thiamine HCl (vitamin B1) 100 mg 100 mg PO DAILY 06/14/24 06/14/24 tablet Allergies Allergy/AdvReac Type Severity Reaction Status Date / Time No Known Allergies Allergy Verified 07/10/23 03:39 Review of Systems Review of Systems: Unable to provide review of systems secondary to patient's condition [facility] Past Medical History Medical History Type 2 diabetes mellitus Hypertensive cardiovascular-renal disease Hypothermia Schizophrenia BPH (benign prostatic hyperplasia) Stage 3b chronic kidney disease (CKD) Left hemiparesis Right pontine CVA Hypertension Recurrent UTI Dysphagia Dementia Chronic diastolic heart failure Paroxysmal A-fib Diabetes mellitus type 2 in obese Social History Social History Household Members: Unknown / Unable to assess Unable to assess alcohol history related to: Unable to respond Patient Tobacco Use Status: Tobacco use Unknown Advance Directives: No Advance Directives Information Provided: No Do you have a plan to hurt others: No Plan Physical Exam Vital Signs: Vital Signs: Last Vital Signs Temp 88.2 F L 06/14/24 14:16 Pulse 48 L 06/14/24 14:16 Resp 20 06/14/24 14:16 BP 90/65 06/14/24 14:16 Pulse Ox 97 06/14/24 14:16 O2 Del Method Mechanical Ventil ation 06/14/24 14:16 FiO2 60 06/14/24 14:16 BMI result Body Mass Index 28.0 Toxic appearing male on BiPAP obtunded Eyes: Pupils equal, round and reactive to light. ENT: Pharynx normal. Neck: Normal inspection. Neck supple. No lymph nodes noted. No crepitus CVS: Normal heart rate and rhythm. Pulses normal. Normal S1 and S2 Respiratory: Positive breath sounds bilaterally positive rhonchi bilaterally Abdomen: Soft Skin: Skin warm and dry. Normal skin color. Normal skin turgor. Extremities: No lower extremity edema. Neurovascular intact to all extremities. No Lacerations. No Rash Neuro: Oriented X 0 No motor deficit. Minimal movement to pain Medications Administered Generic Name Dose Route Start Last Admin Trade Name Freq PRN Reason Stop Dose Admin Heparin Sodium (Porcine) 5,000 unit 06/14/24 12:45 06/14/24 13:06 Heparin Sodium,Porcine 5,000 Unit/Ml Vial SUBCUT 5,000 unit Q8H STEPHANIE Administration Norepinephrine Bitartrate 8 mg in 250 mls @ 0 mls/hr 06/14/24 12:15 06/14/24 12:27 Levophed IVCONT 0.07 mcg/kg/min .Q0M STEPHANIE 11.63 mls/hr Titration Protocol Per Protocol Propofol 1,000 mg in 100 mls @ 0 mls/hr 06/14/24 12:45 06/14/24 13:11 Diprivan IVCONT 30 mcg/kg/min .Q0M STEPHANIE 15.95 mls/hr Administration Protocol Per Protocol Levetiracetam 1,000 mg in 100 mls @ 400 mls/hr 06/14/24 12:45 06/14/24 13:28 Keppra IV Infused Q12H STEPHANIE Infusion Albumin Human 100 mls @ 100 mls/hr 06/14/24 12:45 06/14/24 13:12 Kedbumin 25 % IV 06/14/24 14:44 100 mls/hr Q1H STEPHANIE Administration Lactated Ringer's 1,000 mls @ 999 mls/hr 06/14/24 12:45 06/14/24 13:07 Lr IV 06/14/24 14:45 999 mls/hr .Q1H1M STEPHANIE Administration Discontinued Medications Generic Name Dose Route Start Last Admin Trade Name Freq PRN Reason Stop Dose Admin Dexamethasone Sodium Phosphate 10 mg 06/14/24 12:10 06/14/24 12:16 Dexamethasone Sod Phosphate 10 Mg/Ml Vial IVPUSH 06/14/24 12:11 10 mg ONCE ONE Administration Cefepime HCl 2 gm/ Sodium 50 mls @ 100 mls/hr 06/14/24 11:15 06/14/24 11:53 Chloride IV 06/14/24 11:44 Infused ONCE ONE Infusion Sodium Chloride 1,000 mls @ 999 mls/hr 06/14/24 11:30 06/14/24 12:25 Ns IV 06/14/24 12:30 Infused .Q1H1M STEPHANIE Infusion Vancomycin HCl 1,000 mg/ 535 mls @ 267.5 mls/hr 06/14/24 12:07 06/14/24 12:24 Vancomycin HCl 750 mg/ Sodium IV 06/14/24 14:06 Not Given Chloride ONCE ONE Sodium Chloride 1,000 mls @ 999 mls/hr 06/14/24 12:15 06/14/24 14:20 Ns IV 06/14/24 13:15 Infused .Q1H1M STEPHANIE Infusion Vancomycin HCl 2,000 mg in 500 mls @ 250 mls/hr 06/14/24 12:11 06/14/24 14:38 Vancomycin/Ns IV 06/14/24 14:10 Infused ONCE ONE Infusion Sodium Chloride 2,658 mls @ 2,658 mls/hr 06/14/24 12:15 06/14/24 14:20 Ns 30 ml/kg infuse over 1 hr (2658 ml) 06/14/24 13:14 Infused IV Infusion .Q1H STA Medical Decision Making Medical Decision Making MDM Narrative: Patient has a low GCS minimal movement of painful stimuli no verbal response. Minimal gag. VBG showed a pH of 7.15 with a significant elevation in pCO2 in the 50s. However this pCO2 is more likely chronic as there was a previous venous blood gas done 1 year ago. Patient's pH most likely secondary to a metabolic acidosis. A chest x-ray by my interpretation showed bilateral infiltrate. Patient had a low temperature of 89.5. Review patient's labs and medication from before there was no evidence of patient being on any steroids. Nevertheless a dose of Decadron was given for possible adrenal insufficiency. Cultures were obtained. Full 30 cc/kilos of IV fluid was ordered. Patient was started on cefepime and vancomycin. Because of patient's condition he was intubated. Please see procedure note. A central line was placed. Patient's blood pressure is low blood pressure initially was in the 60s over 40s. No response to fluid bolus. Patient was started on pressor. Additional fluids to make it 30 cc/kilos was given. Patient's case discussed with the gold tooler. Patient will require admission to the intensive care unit. At this point the lactate came back it was 12. Consistent with having infection. During the intubation patient has massive amount of vomiting. I was able to get the ETT in prior to all the vomitus came up. Will do a CT scan of the abdomen pelvis to ensure there is no abdominal pathology. Differential Diagnosis Differential Diagnoses: The differential diagnosis associated with the presentation includes Sepsis, congestive heart failure, respiratory failure, adrenal insufficiency, hypothyroid/myxedema Admission/Observation Consideration of admission/observation: Escalation of care including admission/observation considered Consult Healthcare Provider Management of the patient was discussed with: Night Supervisor (Director Electrical Engineering) Discussed case with gold tooler Lab Data MDM Lab Attestation statement: I reviewed the patient's lab results. 06/14/24 11:03 06/14/24 11:03 Labs: Lab Results 06/14/24 06/14/24 06/14/24 Range/Units 11:03 11:10 11:13 WBC 6.5 (4.8-10.8) X10*3/uL RBC 3.23 L (4.60-5.80) X10*6/uL Hgb 8.9 L (14.0-18.0) g/dl Hct 27.9 L (42.0-52.0) % MCV 86.4 (80.0-98.0) fL MCH 27.6 (27.0-33.0) pg MCHC 31.9 (31.0-36.0) g/dl RDW 19.6 H (11.0-16.0) % Plt Count 128 L D (160-400) X10*3/uL MPV 10.3 (9.4-12.4) fL Immature Gran % (Auto) Cancelled Neut % (Auto) Cancelled Lymph % (Auto) Cancelled [place] % (Auto) Cancelled Eos % (Auto) Cancelled Baso % (Auto) Cancelled Lymph # (Auto) Cancelled [place] # (Auto) Cancelled Eos # (Auto) Cancelled Baso # (Auto) Cancelled Abs Immat Gran (auto) Cancelled Absolute Neuts (auto) Cancelled Absolute Nucleated RBC 0.060 H (0.0-0.012) X10*3/uL Nucleated RBC % (auto) 0.9 H (0.0-0.2) /100WBC Neutrophils % (Manual) 50 (45-73) % Band Neutrophils % 36 H (3-5) % Lymphocytes % (Manual) 10 L (20-40) % Monocytes % (Manual) 3 (2-11) % Myelocytes % 1 % Abs Neuts (Manual) 5.6 (2.0-8.3) X10*3/uL Lymphocytes # (Manual) 0.7 L (1.2-4.9) X10*3/uL Monocytes # (Manual) 0.2 (0.1-1.2) X10*3/uL Myelocytes # 0.1 X10*/uL Nucleated RBCs 3 H (0-0) /100WBC [place] Bodies PRESENT Platelet Estimate SLIGHTLY DECREASED (NORMAL) Large Platelets PRESENT Plt Morphology Comment NOTED RBC Morphology NOTED Polychromasia 1+ (0-2) /OIF Ovalocytes 1+ (5-14) /OIF [place] Cells 3+ (>5) /OIF Hold Purple Top SEE NOTE PT 26.8 H D (11.1-13.3) SEC INR 2.2 H (0.9-1.1) APTT 68.8 H* (26.0-36.8) SEC VBG pH 7.12 L* (7.32-7.43) VBG pCO2 53 mmHg VBG pO2 65 mmHg VBG HCO3 17 L (22-26) mmol/L VBG O2 Saturation 79.0 % VBG Base Excess -11.1 mmol/L Sodium 140 (135-145) mmol/L Potassium 5.0 (3.3-5.1) mmol/L Chloride 102 (96-108) mmol/L Carbon Dioxide 17 L (22-29) mmol/L Anion Gap 26 H (12-20) BUN 55 H (9-16) mg/dL Creatinine 2.94 H (0.5-1.4) mg/dL Estim Creat Clear Calc 24.3 Estimated GFR 21 Random Glucose 195 H (60-115) mg/dL Lactic Acid 12.6 H* (0.5-2.0) mmol/L Calcium 10.3 H D (8.4-10.2) mg/dL Magnesium 2.4 (1.6-2.6) mg/dL Total Bilirubin 0.3 (0.0-1.0) mg/dL AST 17 (5-37) U/L ALT 19 (0-40) U/L Alkaline Phosphatase 174 H (39-117) U/L Troponin I High Sens 3.9 D (<3.5-35.0) ng/L B-Natriuretic Peptide 206 H (<100) pg/mL Total Protein 7.2 (6.5-8.0) g/dL Albumin 3.0 L (3.5-5.0) g/dL TSH 0.96 (0.32-4.0) uIU/mL Urine Color Dark Yellow Urine Appearance Turbid Urine pH >= 9.0 (5.0-9.0) Ur Specific [place] 1.025 (1.005-1.025) Urine Protein 300 (3+) H (Neg-Trace) mg/dL Urine Glucose (UA) Negative (Negative) mg/dL Urine Ketones Trace (Negative) mg/dL Urine Blood Large (3+) H (Negative) Urine Nitrite Negative (Negative) Ur Leukocyte Esterase Moderate (2+) H (Negative) Urine RBC >20 H (0-2) /HPF Urine WBC 21-50 H (0-5) /HPF Ur Squamous Epith Cells 0-2 (0-2) /HPF Other Crystals Present Urine Bacteria 1+ (None Seen) Hyaline Casts 0-2 (0-2) /LPF Influenza Type A (PCR) (Negative) Influenza Type B (PCR) (Negative) RSV RNA Qual (PCR) (Negative) SARS-CoV-2 RNA (RT-PCR) (Negative) 06/14/24 Range/Units 11:18 WBC (4.8-10.8) X10*3/uL RBC (4.60-5.80) X10*6/uL Hgb (14.0-18.0) g/dl Hct (42.0-52.0) % MCV (80.0-98.0) fL MCH (27.0-33.0) pg MCHC (31.0-36.0) g/dl RDW (11.0-16.0) % Plt Count (160-400) X10*3/uL MPV (9.4-12.4) fL Immature Gran % (Auto) Neut % (Auto) Lymph % (Auto) [place] % (Auto) Eos % (Auto) Baso % (Auto) Lymph # (Auto) [place] # (Auto) Eos # (Auto) Baso # (Auto) Abs Immat Gran (auto) Absolute Neuts (auto) Absolute Nucleated RBC (0.0-0.012) X10*3/uL Nucleated RBC % (auto) (0.0-0.2) /100WBC Neutrophils % (Manual) (45-73) % Band Neutrophils % (3-5) % Lymphocytes % (Manual) (20-40) % Monocytes % (Manual) (2-11) % Myelocytes % % Abs Neuts (Manual) (2.0-8.3) X10*3/uL Lymphocytes # (Manual) (1.2-4.9) X10*3/uL Monocytes # (Manual) (0.1-1.2) X10*3/uL Myelocytes # X10*/uL Nucleated RBCs (0-0) /100WBC [place]oh[place] Bodies Platelet Estimate (NORMAL) Large Platelets Plt Morphology Comment RBC Morphology Polychromasia /OIF Ovalocytes /OIF [place] Cells /OIF Hold Purple Top PT (11.1-13.3) SEC INR (0.9-1.1) APTT (26.0-36.8) SEC VBG pH (7.32-7.43) VBG pCO2 mmHg VBG pO2 mmHg VBG HCO3 (22-26) mmol/L VBG O2 Saturation % VBG Base Excess mmol/L Sodium (135-145) mmol/L Potassium (3.3-5.1) mmol/L Chloride (96-108) mmol/L Carbon Dioxide (22-29) mmol/L Anion Gap (12-20) BUN (9-16) mg/dL Creatinine (0.5-1.4) mg/dL Estim Creat Clear Calc Estimated GFR Random Glucose (60-115) mg/dL Lactic Acid (0.5-2.0) mmol/L Calcium (8.4-10.2) mg/dL Magnesium (1.6-2.6) mg/dL Total Bilirubin (0.0-1.0) mg/dL AST (5-37) U/L ALT (0-40) U/L Alkaline Phosphatase (39-117) U/L Troponin I High Sens (<3.5-35.0) ng/L B-Natriuretic Peptide (<100) pg/mL Total Protein (6.5-8.0) g/dL Albumin (3.5-5.0) g/dL TSH (0.32-4.0) uIU/mL Urine Color Urine Appearance Urine pH (5.0-9.0) Ur Specific [place] (1.005-1.025) Urine Protein (Neg-Trace) mg/dL Urine Glucose (UA) (Negative) mg/dL Urine Ketones (Negative) mg/dL Urine Blood (Negative) Urine Nitrite (Negative) Ur Leukocyte Esterase (Negative) Urine RBC (0-2) /HPF Urine WBC (0-5) /HPF Ur Squamous Epith Cells (0-2) /HPF Other Crystals Urine Bacteria (None Seen) Hyaline Casts (0-2) /LPF Influenza Type A (PCR) NEGATIVE (Negative) Influenza Type B (PCR) NEGATIVE (Negative) RSV RNA Qual (PCR) NEGATIVE (Negative) SARS-CoV-2 RNA (RT-PCR) NEGATIVE (Negative) Independent Interpretation I performed an independent interpretation of an: Plain X-Ray (Patient's chest x-ray showed bilateral infiltrate. My interpretation of patient's 2nd x-ray showed ET tube in place. 0G-tube in place. Bilateral infiltrate) Radiology Impression Discussion of test interpretation with radiology: I have reviewed the radiologist's reading. Procedures Procedure Narrative Procedure Narrative: OG tube was placed by myself there was no complication there is large amount of fluid that was taken out. Central Line Placement Right Femoral: Time Out Performed: Yes Patient Placed on Monitor/Pulse Ox: Yes Prep: mask, gown, gloves and other Central Line Prep: Povidone-Iodine 1% Local Anesthetic: lidocaine 1% Amount of anesthesia used (mL): 3 Ultrasound Used for Placement: No Central Line Lumen Inserted: triple Post Procedure: sutured in place Patient Tolerated Procedure: well Complications: none Intubation Intubation Type:: Endotracheal Tube Insertion Intubation Date:: 06/14/24 Intubation Time:: 12:27 Time out performed: Yes sedative: Etomidate paralytic: Rocuronium Laryngoscope: fiber optic video scope ET Tube Size: 7.5 ET Tube Uncuffed: No Tube Secured Depth (cm): 23 Tube Secured Location: teeth Tube Placement Confirmation: visualized tube passing through cords Patient Tolerated Procedure: well Intubation Complications: none Critical Care Time Critical Care Time Critical Care Time: Yes Total Critical Care Time: 95 Attestation: I have personally provided 95 minutes of critical care time exclusive of time spent on separately billable procedures. ?Time includes review of lab data, radiology results, discussion with consultants, and monitoring for potential decompensation. ?Interventions were performed as documented above Discharge Plan Discharge Clinical Impression: Schizophrenia, Sepsis Patient Disposition: Admitted As Inpatient
[2024-06-14] MEDS: dexAMETHasone sod phosphate 10 MG/ML VIAL IVPUSH (12:16)
[2024-06-14] MEDS: vancomycin/NS 2,000 MG/500 ML PLAST..BAG 250 MG IV (12:16)
[2024-06-14 12:21] LABS: Influenza A PCR NEGATIVE (Negative); Influenza B PCR NEGATIVE (Negative); Resp Syncy Virus RNA Qual PCR NEGATIVE (Negative); SARS COV2 PCR INHOUSE NEGATIVE (Negative)
[2024-06-14] MEDS: Norepinephrine Bitartrate/D5W 8 MG/250 ML PLAST..BAG 8.31 MG IVCONT (12:21)
--- NOTE | 2024-06-14 12:41 | PC.NURSE ---
chronic coker catheter that pt arrived w/ discontinued. new 16fr temp sensing coker catheter w/ 10ml balloon placed. no immediate urine output noted upon insertion. bladder not detectable during bladder scan. provider aware. will reassess for urine output.
[2024-06-14] MEDS: levETIRAcetam in NaCl (iso-os) 1,000 MG/100 ML PIGGYBACK 400 MG IV (13:06)
[2024-06-14] MEDS: Heparin Sodium,Porcine 5,000 UNIT/ML VIAL 5000 UNIT SUBCUT (13:06)
[2024-06-14] MEDS: Lactated Ringers 1,000 ML 999 ML IV ×2 (13:07→14:49)
[2024-06-14] MEDS: propofoL 1,000 MG/100 ML VIAL 15.95 MG IVCONT ×2 (13:11→18:32)
[2024-06-14] MEDS: Albumin Human 25 % 100 ML IV ×2 (13:12→14:40)
[2024-06-14 13:24] LABS: Reflex Lactate? Lactic Acid Added
--- NOTE | 2024-06-14 13:53 | PHA.MEDREC ---
Pharmacy Consult ? Medication Reconciliation Pharmacy has completed the medication reconciliation. Confirmed medications with list provided by [facility]. Looking in the packet Amlodipine 5mg, Eliquis 5mg, Atorvastatin 20mg and Benztropine 1mg tabs are put on hold from 06/14/24 until 06/17/24.
--- NOTE | 2024-06-14 14:18 | PC.NURSE ---
report given to WILLIE Graff and then transported to CT and then ICU w/ this RN, april, and RT.
[2024-06-14 14:35] LABS: Glucose, Whole Blood 172 mg/dL (60-115)
[2024-06-14] MEDS: Insulin Lispro 100 UNIT/ML 3 ML VIAL SUBCUT ×2 (14:39→18:33)
[2024-06-14] MEDS: Chlorhexidine Gluc Oral Rinse 15 ML MOUTHWASH BUCCAL ×2 (14:49→20:01)
[2024-06-14 15:12] LABS: ~Lactic Acid-LAB USE ONLY 12.2 mmol/L (0.5-2.0)
--- NOTE | 2024-06-14 15:39 | P.HPCC_ITS ---
History of Present Illness Date of Service: 06/14/24 Chief Complaint: Shock, respiratory failure 73-year-old gentleman with underlying history of diabetes mellitus chronic kidney disease, paroxysmal AFib on Eliquis, diastolic heart failure, dementia, pontine CVA with residual left hemiparesis, schizophrenia admitted on 06/14/2024 [facility] nurse facility where he resides with worsening confusion. On ER evaluation patient hypotensive and hypoxic requiring intubation for airway protection and pressor support. Started on empiric antibiotics and admitted to the intensive care unit. Review of Systems 2 Review of Systems: No unobtainable due to endotracheal tube, Unobtainable due to mental condition or Unobtainable due to mental status PMFSH Past Medical History Medical History (Updated 06/14/24 @ 15:52 by Lupillo Contreras MD) Type 2 diabetes mellitus Hypertensive cardiovascular-renal disease Hypothermia Schizophrenia BPH (benign prostatic hyperplasia) Stage 3b chronic kidney disease (CKD) Left hemiparesis Right pontine CVA Hypertension Recurrent UTI Dysphagia Dementia Chronic diastolic heart failure Paroxysmal A-fib Diabetes mellitus type 2 in obese Social History Social History Household Members: Unknown / Unable to assess Unable to assess alcohol history related to: Unable to respond Patient Tobacco Use Status: Tobacco use Unknown Advance Directives: No Advance Directives Information Provided: No Do you have a plan to hurt others: No Plan Meds Allergies Allergy/AdvReac Type Severity Reaction Status Date / Time No Known Allergies Allergy Verified 07/10/23 03:39 Active Medications: Current Medications Chlorhexidine Gluconate (Chlorhexidine Gluc Oral Rinse 15 Ml Mouthwash) 15 ml BUCCAL TID [facility] Last Admin: 06/14/24 14:49 Dose: 15 ml Famotidine (Famotidine/Pf 20 Mg/2 Ml Vial) 20 mg IVPUSH DAILY [facility] Heparin Sodium (Porcine) (Heparin Sodium,Porcine 5,000 Unit/Ml Vial) 5,000 unit SUBCUT Q8H [facility] Last Admin: 06/14/24 13:06 Dose: 5,000 unit Norepinephrine Bitartrate (Levophed) 8 mg in 250 mls @ 0 mls/hr IVCONT .Q0M [facility]; Protocol Last Titration: 06/14/24 12:27 Dose: 0.07 mcg/kg/min, 11.63 mls/hr Propofol (Diprivan) 1,000 mg in 100 mls @ 0 mls/hr IVCONT .Q0M [facility]; Protocol Last Admin: 06/14/24 13:11 Dose: 30 mcg/kg/min, 15.95 mls/hr Levetiracetam (Keppra) 1,000 mg in 100 mls @ 400 mls/hr IV Q12H [facility] Last Infusion: 06/14/24 13:28 Dose: Infused Cefepime HCl 1 gm/ Sodium (Chloride) 50 mls @ 100 mls/hr IV Q24H [facility] Insulin Human Lispro (Insulin Lispro 100 Unit/Ml 3 Ml Vial) 0 unit SUBCUT Q6H [facility]; Protocol Last Admin: 06/14/24 14:39 Dose: 2 unit Pharmacy Consult (Consult Rx Vancomycin Dosing) 1 each MISCELLANE DAILY PRN PRN Reason: Consult order Home Medications ?Medication ?Instructions ?Recorded ?Confirmed ?Last Taken ?Type apixaban 5 mg tablet (Eliquis) 5 mg PO BID 07/10/23 06/14/24 Unknown History atorvastatin 20 mg tablet 20 mg PO DAILY 07/10/23 06/14/24 Unknown History cholecalciferol (vitamin D3) 50 50 mcg PO DAILY 07/10/23 06/14/24 Unknown History mcg (2,000 unit) tablet finasteride 5 mg tablet 5 mg PO DAILY 07/10/23 06/14/24 Unknown History folic acid 1 mg tablet 1 mg PO DAILY 07/10/23 06/14/24 Unknown History haloperidol decanoate 50 mg/mL 50 mg IM Q4W 07/10/23 06/14/24 Unknown History intramuscular solution multivitamin 1 tab PO DAILY 07/10/23 06/14/24 Unknown History risperidone 2 mg tablet 2 mg PO BID 07/10/23 06/14/24 Unknown History sucralfate 1 gram tablet (Carafate) 1 g PO TID 07/10/23 06/14/24 Unknown History amlodipine 10 mg tablet 10 mg PO DAILY 07/23/23 06/14/24 Unknown History levetiracetam 100 mg/mL oral 250 mg PO BID 07/23/23 06/14/24 Unknown History solution Glucose Gel 77.4% 1 appl PO Q15M PRN HYPOGLYCEMIA, 06/14/24 06/14/24 Unknown History BS <60 acetaminophen 325 mg tablet 650 mg PO Q6H PRN General 06/14/24 06/14/24 Unknown History Discomfort/Temp Over 101 acetaminophen 650 mg rectal 650 mg [place] Q6H PRN General 06/14/24 06/14/24 Unknown History suppository Discomfort/Temp Over 101 benztropine 1 mg tablet 1 mg PO BID 06/14/24 06/14/24 Unknown History bisacodyl 10 mg rectal suppository 10 mg [place] DAILY PRN Costipation/If 06/14/24 06/14/24 Unknown History MoM not effective. glucagon 1 mg/0.2 mL subcutaneous 1 mg subcut Q15M PRN blood Sugar 06/14/24 06/14/24 Unknown History solution (Gvoke) insulin glargine 100 unit/mL 6 unit subcut DAILY 06/14/24 06/14/24 Unknown History subcutaneous solution (Lantus U-100 Insulin) insulin lispro 100 unit/mL 1 sliding scale dose subcut 06/14/24 06/14/24 Unknown History subcutaneous solution (Humalog USEASDIRECTD U-100 Insulin) isosorbide mononitrate 30 mg 30 mg PO DAILY 06/14/24 06/14/24 Unknown History tablet,extended release 24 hr lactulose 10 gram/15 mL (15 mL) 45 ml PO DAILY 06/14/24 06/14/24 Unknown History oral solution lanolin alcohols-mineral 1 appl topical TID XEROSIS CUTIS 06/14/24 06/14/24 Unknown History oil-w.petrolatum-ceresin topical cream (Minerin Creme topical) levothyroxine 100 mcg tablet 100 mcg PO DAILY@0600 06/14/24 06/14/24 Unknown History pantoprazole 40 mg tablet,delayed 40 mg PO DAILY@0630 06/14/24 06/14/24 Unknown History release thiamine HCl (vitamin B1) 100 mg 100 mg PO DAILY 06/14/24 06/14/24 Unknown History tablet Physical Exam 2 Vital Signs: Vital Signs: Last Vital Signs Temp 88.2 F L 06/14/24 14:16 Pulse 48 L 06/14/24 14:16 Resp 20 06/14/24 14:16 BP 127/61 06/14/24 14:53 Pulse Ox 97 06/14/24 14:16 O2 Del Method Mechanical Ventil ation 06/14/24 14:16 FiO2 60 06/14/24 15:13 BMI result Body Mass Index 28.0 Const: General: no acute distress and other (Sedated on the vent) N utritional Appearance: obese Eyes: Sclerae: sclerae normal EOM: EOMs intact bilaterally Neck: Neck: Yes no lymphadenopathy, Yes trachea midline and Yes supple Resp: Auscultation: crackles bilateral Cardio: Rate: bradycardic Rhythm: regular rhythm Heart sounds: no gallops, no murmurs and no rubs GI: Palpation (GI): Soft to palpation and Other GI palpation findings present ( Nontender) Auscultation: normal bowel sounds Extrem: General: No clubbing, No cyanosis and Yes edema (Trace bilateral) Results Labs 06/14/24 11:03 06/14/24 11:03 Labs: Laboratory Results - last 24 hr 06/14/24 06/14/24 06/14/24 11:03 11:10 11:13 MCV 86.4 MCH 27.6 MCHC 31.9 RDW 19.6 H Plt Count 128 L D MPV 10.3 Immature Gran % (Auto) Cancelled Neut % (Auto) Cancelled Lymph % (Auto) Cancelled [place] % (Auto) Cancelled Eos % (Auto) Cancelled Baso % (Auto) Cancelled Lymph # (Auto) Cancelled [place] # (Auto) Cancelled Eos # (Auto) Cancelled Baso # (Auto) Cancelled Abs Immat Gran (auto) Cancelled Absolute Neuts (auto) Cancelled Absolute Nucleated RBC 0.060 H Nucleated RBC % (auto) 0.9 H Neutrophils % (Manual) 50 Band Neutrophils % 36 H Lymphocytes % (Manual) 10 L Monocytes % (Manual) 3 Myelocytes % 1 Abs Neuts (Manual) 5.6 Lymphocytes # (Manual) 0.7 L Monocytes # (Manual) 0.2 Myelocytes # 0.1 Nucleated RBCs 3 H Dohle Bodies PRESENT Platelet Estimate SLIGHTLY DECREASED Large Platelets PRESENT Plt Morphology Comment NOTED RBC Morphology NOTED Polychromasia 1+ (0-2) Ovalocytes 1+ (5-14) Beatrice Cells 3+ (>5) Hold Purple Top SEE NOTE PT 26.8 H D INR 2.2 H APTT 68.8 H* VBG pH 7.12 L* VBG pCO2 53 VBG pO2 65 VBG HCO3 17 L VBG O2 Saturation 79.0 VBG Base Excess -11.1 Anion Gap 26 H Estim Creat Clear Calc 24.3 Estimated GFR 21 POC Glucose Random Glucose 195 H Lactic Acid 12.6 H* Lactic Acid F/U @ 2Hr Calcium 10.3 H D Magnesium 2.4 Total Bilirubin 0.3 AST 17 ALT 19 Alkaline Phosphatase 174 H Troponin I High Sens 3.9 D B-Natriuretic Peptide 206 H Total Protein 7.2 Albumin 3.0 L TSH 0.96 Urine Color Dark Yellow Urine Appearance Turbid Urine pH >= 9.0 Ur Specific [place] 1.025 Urine Protein 300 (3+) H Urine Glucose (UA) Negative Urine Ketones Trace Urine Blood Large (3+) H Urine Nitrite Negative Ur Leukocyte Esterase Moderate (2+) H Urine RBC >20 H Urine WBC 21-50 H Ur Squamous Epith Cells 0-2 Other Crystals Present Urine Bacteria 1+ Hyaline Casts 0-2 Influenza Type A (PCR) Influenza Type B (PCR) RSV RNA Qual (PCR) SARS-CoV-2 RNA (RT-PCR) 06/14/24 06/14/24 06/14/24 11:18 14:31 14:44 MCV MCH MCHC RDW Plt Count MPV Immature Gran % (Auto) Neut % (Auto) Lymph % (Auto) [place] % (Auto) Eos % (Auto) Baso % (Auto) Lymph # (Auto) [place] # (Auto) Eos # (Auto) Baso # (Auto) Abs Immat Gran (auto) Absolute Neuts (auto) Absolute Nucleated RBC Nucleated RBC % (auto) Neutrophils % (Manual) Band Neutrophils % Lymphocytes % (Manual) Monocytes % (Manual) Myelocytes % Abs Neuts (Manual) Lymphocytes # (Manual) Monocytes # (Manual) Myelocytes # Nucleated RBCs Dohle Bodies Platelet Estimate Large Platelets Plt Morphology Comment RBC Morphology Polychromasia Ovalocytes [place] Cells Hold Purple Top PT INR APTT VBG pH VBG pCO2 VBG pO2 VBG HCO3 VBG O2 Saturation VBG Base Excess Anion Gap Estim Creat Clear Calc Estimated GFR POC Glucose 172 H Random Glucose Lactic Acid Lactic Acid F/U @ 2Hr 12.2 H* Calcium Magnesium Total Bilirubin AST ALT Alkaline Phosphatase Troponin I High Sens B-Natriuretic Peptide Total Protein Albumin TSH Urine Color Urine Appearance Urine pH Ur Specific [place] Urine Protein Urine Glucose (UA) Urine Ketones Urine Blood Urine Nitrite Ur Leukocyte Esterase Urine RBC Urine WBC Ur Squamous Epith Cells Other Crystals Urine Bacteria Hyaline Casts Influenza Type A (PCR) NEGATIVE Influenza Type B (PCR) NEGATIVE RSV RNA Qual (PCR) NEGATIVE SARS-CoV-2 RNA (RT-PCR) NEGATIVE Imaging Radiologist's Impressions: Impressions Chest X-Ray 06/14/24 10:51 IMPRESSION: Patchy bilateral, probably bibasilar, airspace opacities. Small bilateral pleural effusions. This study was presented today June 14, 2024 for interpretation. Stat results provided at this time as requested by referring provider. Electronically signed by: Roselia Guerrero MD 06/14/2024 12:17 PM EDT RP Chest X-Ray 06/14/24 11:40 IMPRESSION: Lines as described. Prominent cardiac silhouette. Likely bilateral multifocal pneumonia and small left pleural effusion. Electronically signed by: Deidre Rice MD 06/14/2024 01:52 PM EDT RP Assessment and Plan (1) Hypothermia: Status: Acute (2) Acute respiratory failure with hypoxia: Status: Acute (3) Pulmonary aspiration: Status: Acute (4) Urinary tract infection: Status: Acute (5) Schizophrenia: Status: Acute (6) Type 2 diabetes mellitus: Status: Acute (7) CKD (chronic kidney disease): Status: Acute (8) Left hemiparesis: Status: Acute Plan Assessment: 73-year-old gentleman with underlying schizophrenia, dementia, left hemiparesis post CVA admitted with alteration of mental status and hypoxia requiring intubation and ventilatory support Plan: Neuro: Alteration of mental status, likely encephalopathy on the background of dementia, schizophrenia, and lack of decision-making capacity with court- appointed guardian Cardiac: Septic shock, continue to titrate off pressor support as tolerated. Underlying AFib on Eliquis and chronic diastolic congestive heart failure. Pulmonary: Acute respiratory failure with hypoxia likely secondary to pulmonary aspiration now requiring ventilatory support, continue to titrate off as tolerated. Renal: Acute on chronic renal failure, likely secondary to urinary tract infection. Non oliguric. Continue to monitor renal indices and urine output. No evidence of hydronephrosis. Endo: No acute issues. GI: Constipation, start on enema. ID: Septic shock with likely source. Cultures are pending. Continue broad- spectrum antibiotic coverage. Heme/Onc: No acute issues. Psych: No acute issues. Miscellaneous: No acute issues. Prophylaxis: Apixaban, famotidine Diet: NPO Critical care time spent: 60 minutes
[2024-06-14 16:46] LABS: Reflex Lactate? 2 Y
[2024-06-14 18:08] LABS: Glucose, Whole Blood 177 mg/dL (60-115)
[2024-06-14 18:39] LABS: VBG Base Excess -11.9 mmol/L; VBG HCO3 14 mmol/L (22-26); VBG pCO2 31 mmHg; VBG pH 7.25 (7.32-7.43); VBG pO2 70 mmHg
[2024-06-14 18:39] LABS: Venous Blood Gas Refer to POC result
[2024-06-14 18:51] LABS: Anion Gap 22 (12-20); Blood Urea Nitrogen 47 mg/dL (9-16); Calcium 9.3 mg/dL (8.4-10.2); Carbon Dioxide 15 mmol/L (22-29); Chloride 106 mmol/L (96-108); Estimated Glomerular Filt Rate 26; Glucose Random 204 mg/dL (60-115); Potassium 5.1 mmol/L (3.3-5.1); Sodium 138 mmol/L (135-145)
[2024-06-14 18:54] LABS: ~Lactic Acid-LAB USE ONLY 10.9 mmol/L (0.5-2.0)
[2024-06-14 18:55] LABS: Hematocrit 23.1 % (42.0-52.0); Hemoglobin 7.4 g/dl (14.0-18.0); Mean Corpuscular Hemoglobin 27.2 pg (27.0-33.0); Mean Corpuscular Volume 84.9 fL (80.0-98.0); Mean Platelet Volume 10.4 fL (9.4-12.4); NRBC Pct Auto 0.6 /100WBC (0.0-0.2); Platelet Count 97 X10*3/uL (160-400); Red Blood Count 2.72 X10*6/uL (4.60-5.80); Red Cell Distribution Width 19.4 % (11.0-16.0); WBC ABN SCTR FOR CBC 1
--- NOTE | 2024-06-14 19:10 | HO.SKINPHOTO ---
Location: bilateral coccyx Category: pressure injury Stage: 2 Location: Left Foot Category: ?
[2024-06-14 19:40] LABS: Lymphocytes Percent Manual 7 % (20-40); Metamyelocytes Percent 5 %; Monocytes Percent Manual 3 % (2-11); Myelocytes Percent 1 %; Neutrophils Percent Manual 62 % (45-73); Nucleated Red Blood Cells 1 /100WBC (0-0)
[2024-06-14 19:42] LABS: Burr Cells 3+ (>5) /OIF; Ovalocytes 1+ (5-14) /OIF; RBC Morphology NOTED; Schistocytes 2+ (3-5) /OIF
[2024-06-14 19:47] LABS: Platelet Estimate SLIGHTLY DECREASED (NORMAL); Platelet Morphology Comment NORMAL
[2024-06-14 19:51] LABS: Lymphocytes Absolute Manual 0.5 X10*3/uL (1.2-4.9); Metamyelocytes Absolute 0.3 X10*3/uL; Monocytes Absolute Manual 0.2 X10*3/uL (0.1-1.2); Myelocytes Absolute 0.1 X10*/uL; Neutrophils Absolute Manual 5.5 X10*3/uL (2.0-8.3); White Blood Count 6.5 X10*3/uL (4.8-10.8)
[2024-06-14 19:52] LABS: Band Neutrophils Percent 22 % (3-5)
[2024-06-14 22:12] LABS: Hematocrit 22.7 % (42.0-52.0); Hemoglobin 7.3 g/dl (14.0-18.0); Mean Corpuscular HGB Conc 32.2 g/dl (31.0-36.0); Mean Corpuscular Hemoglobin 27.1 pg (27.0-33.0); Mean Corpuscular Volume 84.4 fL (80.0-98.0); PLT CLUMP 1; Red Blood Count 2.69 X10*6/uL (4.60-5.80); Red Cell Distribution Width 19.4 % (11.0-16.0)
[2024-06-14 22:16] LABS: VBG Base Excess -8.9 mmol/L; VBG HCO3 15 mmol/L (22-26); VBG pCO2 26 mmHg; VBG pH 7.36 (7.32-7.43); VBG pO2 66 mmHg
[2024-06-14 22:18] LABS: Venous Blood Gas Refer to POC result
[2024-06-14 22:26] LABS: Anion Gap 20 (12-20); Blood Urea Nitrogen 49 mg/dL (9-16); Calcium 9.4 mg/dL (8.4-10.2); Carbon Dioxide 17 mmol/L (22-29); Chloride 105 mmol/L (96-108); Creatinine Clr Calc Pharmacy 29.1; Estimated Glomerular Filt Rate 26; Glucose Random 218 mg/dL (60-115); Magnesium 2.2 mg/dL (1.6-2.6); Phosphorus 3.2 mg/dL (2.7-4.5); Potassium 5.4 mmol/L (3.3-5.1); Sodium 137 mmol/L (135-145)
[2024-06-14 22:28] LABS: Lactic Acid 8.6 mmol/L (0.5-2.0)
[2024-06-14 22:38] LABS: OBS Int Ctl Valid YES; OBS1 POSITIVE (NEGATIVE)
[2024-06-14 22:46] LABS: NRBC Pct Auto 1.1 /100WBC (0.0-0.2); WBC ABN SCTR FOR CBC 1
[2024-06-14 23:10] LABS: Band Neutrophils Percent 17 % (3-5); Lymphocytes Percent Manual 7 % (20-40); Metamyelocytes Percent 6 %; Monocytes Percent Manual 7 % (2-11); Myelocytes Percent 1 %; Neutrophils Percent Manual 62 % (45-73); Nucleated Red Blood Cells 3 /100WBC (0-0); Ovalocytes 1+ (5-14) /OIF; RBC Morphology NOTED
[2024-06-14] MEDS: Furosemide 40 MG/4 ML VIAL IVPUSH (23:10)
[2024-06-14 23:11] LABS: Burr Cells 3+ (>5) /OIF; Platelet Estimate NORMAL (NORMAL); Platelet Morphology Comment NORMAL; Schistocytes 1+ (0-2) /OIF; Toxic Vacuolation PRESENT
[2024-06-14 23:12] LABS: Lymphocytes Absolute Manual 0.5 X10*3/uL (1.2-4.9); Metamyelocytes Absolute 0.4 X10*3/uL; Monocytes Absolute Manual 0.5 X10*3/uL (0.1-1.2); Myelocytes Absolute 0.1 X10*/uL; Neutrophils Absolute Manual 5.5 X10*3/uL (2.0-8.3); Platelet Count 117 X10*3/uL (160-400)
[2024-06-15] VITALS (37 sets, daily range): BP systolic 118–146; BP diastolic 46–75; PULSE 74–96; RESP 15–20; TEMP 32–37.4; O2SAT 90–100; BMI 26.8
[2024-06-15 00:04] LABS: Glucose, Whole Blood 215 mg/dL (60-115)
[2024-06-15 00:04] LABS: Reflex Lactate? Lactic Acid Added
[2024-06-15 00:30] LABS: ~Lactic Acid-LAB USE ONLY 5.8 mmol/L (0.5-2.0)
[2024-06-15] MEDS: Insulin Lispro 100 UNIT/ML 3 ML VIAL SUBCUT (00:36)
[2024-06-15] MEDS: levETIRAcetam in NaCl (iso-os) 1,000 MG/100 ML PIGGYBACK 400 MG IV ×2 (01:10→12:46)
[2024-06-15 01:15] LABS: Hematocrit 22.3 % (42.0-52.0); Hemoglobin 7.3 g/dl (14.0-18.0); Mean Corpuscular HGB Conc 32.7 g/dl (31.0-36.0); Mean Corpuscular Hemoglobin 26.7 pg (27.0-33.0); Mean Corpuscular Volume 81.7 fL (80.0-98.0); Mean Platelet Volume 10.1 fL (9.4-12.4); Platelet Count 130 X10*3/uL (160-400); Red Blood Count 2.73 X10*6/uL (4.60-5.80); Red Cell Distribution Width 19.2 % (11.0-16.0)
[2024-06-15 01:16] LABS: WBC ABN SCTR FOR CBC 1
[2024-06-15 02:05] LABS: Band Neutrophils Percent 36 % (3-5); Lymphocytes Absolute Manual 0.8 X10*3/uL (1.2-4.9); Lymphocytes Percent Manual 9 % (20-40); Metamyelocytes Absolute 0.6 X10*3/uL; Metamyelocytes Percent 7 %; Monocytes Absolute Manual 0.3 X10*3/uL (0.1-1.2); Monocytes Percent Manual 3 % (2-11); Myelocytes Absolute 0.1 X10*/uL; Myelocytes Percent 1 %; Neutrophils Absolute Manual 7.2 X10*3/uL (2.0-8.3); Neutrophils Percent Manual 44 % (45-73); Nucleated Red Blood Cells 1 /100WBC (0-0)
[2024-06-15 02:06] LABS: RBC Morphology NOTED
[2024-06-15 02:08] LABS: Burr Cells 3+ (>5) /OIF; Dohle Bodies PRESENT; Platelet Estimate SLIGHTLY DECREASED (NORMAL); Platelet Morphology Comment NORMAL; Polychromasia 1+ (0-2) /OIF; Toxic Granulation PRESENT; Toxic Vacuolation PRESENT
[2024-06-15 02:09] LABS: Ovalocytes 1+ (5-14) /OIF
[2024-06-15 02:17] LABS: Reflex Lactate? 2 Y
[2024-06-15] MEDS: propofoL 1,000 MG/100 ML VIAL 10.63 MG IVCONT ×3 (02:31→19:00)
[2024-06-15 03:42] LABS: ~Lactic Acid-LAB USE ONLY 3.6 mmol/L (0.5-2.0)
[2024-06-15 05:25] LABS: Hematocrit 21.1 % (42.0-52.0); Hemoglobin 7.1 g/dl (14.0-18.0); Mean Corpuscular HGB Conc 33.6 g/dl (31.0-36.0); Mean Corpuscular Volume 80.2 fL (80.0-98.0); Mean Platelet Volume 9.9 fL (9.4-12.4); Platelet Count 111 X10*3/uL (160-400); Red Blood Count 2.63 X10*6/uL (4.60-5.80); Red Cell Distribution Width 18.8 % (11.0-16.0)
[2024-06-15 05:25] LABS: VBG Base Excess -0.4 mmol/L; VBG HCO3 22 mmol/L (22-26); VBG pCO2 28 mmHg; VBG pO2 48 mmHg
[2024-06-15 05:26] LABS: Venous Blood Gas Refer to POC result
[2024-06-15 05:27] LABS: WBC ABN SCTR FOR CBC 1; White Blood Count 10.8 X10*3/uL (4.8-10.8)
[2024-06-15 05:36] LABS: INTERNATIONAL NORM RATIO 3.4 (0.9-1.1)
[2024-06-15 05:49] LABS: Albumin Level 3.2 g/dL (3.5-5.0); Anion Gap 15 (12-20); Band Neutrophils Percent 46 % (3-5); Blood Urea Nitrogen 51 mg/dL (9-16); Calcium 9.7 mg/dL (8.4-10.2); Carbon Dioxide 22 mmol/L (22-29); Chloride 108 mmol/L (96-108); Creatinine Clr Calc Pharmacy 24.8; Estimated Glomerular Filt Rate 21; Glucose Random 153 mg/dL (60-115); Lymphocytes Absolute Manual 0.9 X10*3/uL (1.2-4.9); Lymphocytes Percent Manual 8 % (20-40); Magnesium 2.1 mg/dL (1.6-2.6); Metamyelocytes Absolute 0.5 X10*3/uL; Metamyelocytes Percent 5 %; Monocytes Absolute Manual 0.1 X10*3/uL (0.1-1.2); Monocytes Percent Manual 1 % (2-11); Neutrophils Absolute Manual 9.3 X10*3/uL (2.0-8.3); Neutrophils Percent Manual 40 % (45-73); Nucleated Red Blood Cells 2 /100WBC (0-0); Potassium 5.1 mmol/L (3.3-5.1); Sodium 140 mmol/L (135-145)
[2024-06-15 05:50] LABS: Burr Cells 3+ (>5) /OIF; Ovalocytes 1+ (5-14) /OIF; RBC Morphology NOTED; Schistocytes 1+ (0-2) /OIF; Tear Drop Cells 1+ (0-2) /OIF
[2024-06-15 05:51] LABS: Dohle Bodies PRESENT; Large Platelet PRESENT; Platelet Estimate SLIGHTLY DECREASED (NORMAL); Platelet Morphology Comment NOTED; Polychromasia 1+ (0-2) /OIF; Toxic Granulation PRESENT; Toxic Vacuolation PRESENT
[2024-06-15] MEDS: Pantoprazole Sodium 40 MG/10 ML VIAL IVPUSH ×2 (06:21→15:42)
[2024-06-15] MEDS: Albumin Human 25 % 100 ML IV ×3 (07:28→20:23)
[2024-06-15] MEDS: Phytonadione (Vit K1) 10 MG in 0.9 % Sodium Chloride 50 ML 51 MG IV (07:36)
[2024-06-15] MEDS: Chlorhexidine Gluc Oral Rinse 15 ML MOUTHWASH BUCCAL ×3 (08:16→20:23)
[2024-06-15] MEDS: Furosemide 40 MG/4 ML VIAL IVPUSH (08:17)
--- NOTE | 2024-06-15 08:18 | P.PNCC_ITS ---
Subjective Subjective Date of Service: 06/15/24 Interval History: 73-year-old gentleman with underlying history of diabetes mellitus chronic kidney disease, paroxysmal AFib on Eliquis, diastolic heart failure, dementia, pontine CVA with residual left hemiparesis, schizophrenia admitted on 06/14/2024 [facility] facility where he resides with worsening confusion. On ER evaluation patient hypotensive and hypoxic requiring intubation for airway protection and pressor support. Started on empiric antibiotics and admitted to the intensive care unit. Night with improvement in septic shock, but with development of coagulopathy and resultant GI bleed hemoglobin slowly downtrending. Critical Care Time (minutes): 60 Physical Exam 2 Vital Signs: Vital Signs: Last Vital Signs Temp 99.0 F 06/15/24 08:00 Pulse 81 06/15/24 08:00 Resp 16 06/15/24 08:00 BP 131/55 L 06/15/24 08:00 Pulse Ox 95 06/15/24 08:00 O2 Del Method Mechanical Ventil ation 06/15/24 08:00 FiO2 30 06/15/24 08:00 BMI result Body Mass Index 26.8 Const: General: no acute distress and other (Sedated on ventilatory support) Eyes: Sclerae: sclerae normal EOM: EOMs intact bilaterally Neck: Neck: Yes no lymphadenopathy, Yes trachea midline and Yes supple Resp: Auscultation: rales (Bibasilar) Cardio: Rate: regular rate Rhythm: regular rhythm Heart sounds: no gallops, no murmurs and no rubs GI: Palpation (GI): Soft to palpation and Other GI palpation findings present ( Nontender) Auscultation: normal bowel sounds Extrem: General: No clubbing, No cyanosis and Yes edema (1+ bilateral) Objective Data Labs 06/15/24 05:18 06/15/24 05:18 Labs: Laboratory Results - last 24 hr 06/14/24 06/14/24 06/14/24 11:03 11:10 11:13 WBC 6.5 RBC 3.23 L Hgb 8.9 L Hct 27.9 L MCV 86.4 MCH 27.6 MCHC 31.9 RDW 19.6 H Plt Count 128 L D MPV 10.3 Immature Gran % (Auto) Cancelled Neut % (Auto) Cancelled Lymph % (Auto) Cancelled [place] % (Auto) Cancelled Eos % (Auto) Cancelled Baso % (Auto) Cancelled Lymph # (Auto) Cancelled [place] # (Auto) Cancelled Eos # (Auto) Cancelled Baso # (Auto) Cancelled Abs Immat Gran (auto) Cancelled Absolute Neuts (auto) Cancelled Absolute Nucleated RBC 0.060 H Nucleated RBC % (auto) 0.9 H Neutrophils % (Manual) 50 Band Neutrophils % 36 H Lymphocytes % (Manual) 10 L Monocytes % (Manual) 3 Metamyelocytes % Myelocytes % 1 Abs Neuts (Manual) 5.6 Lymphocytes # (Manual) 0.7 L Monocytes # (Manual) 0.2 Metamyelocytes # Myelocytes # 0.1 Nucleated RBCs 3 H Toxic Granulation Toxic Vacuolation Dohle Bodies PRESENT WBC Morphology Comment Platelet Estimate SLIGHTLY DECREASED Large Platelets PRESENT Plt Morphology Comment NOTED RBC Morphology NOTED Polychromasia 1+ (0-2) Tear Drop Cells Ovalocytes 1+ (5-14) Beatrice Cells 3+ (>5) Schistocytes Hold Purple Top SEE NOTE PT 26.8 H D INR 2.2 H APTT 68.8 H* VBG pH 7.12 L* VBG pCO2 53 VBG pO2 65 VBG HCO3 17 L VBG O2 Saturation 79.0 VBG Base Excess -11.1 Sodium 140 Potassium 5.0 Chloride 102 Carbon Dioxide 17 L Anion Gap 26 H BUN 55 H Creatinine 2.94 H Estim Creat Clear Calc 24.3 Estimated GFR 21 POC Glucose Random Glucose 195 H Lactic Acid 12.6 H* Lactic Acid F/U @ 2Hr Lactic Acid F/U @ 4Hr Calcium 10.3 H D Phosphorus Magnesium 2.4 Total Bilirubin 0.3 AST 17 ALT 19 Alkaline Phosphatase 174 H Troponin I High Sens 3.9 D B-Natriuretic Peptide 206 H Total Protein 7.2 Albumin 3.0 L TSH 0.96 Urine Color Dark Yellow Urine Appearance Turbid Urine pH >= 9.0 Ur Specific Ashley 1.025 Urine Protein 300 (3+) H Urine Glucose (UA) Negative Urine Ketones Trace Urine Blood Large (3+) H Urine Nitrite Negative Ur Leukocyte Esterase Moderate (2+) H Urine RBC >20 H Urine WBC 21-50 H Ur Squamous Epith Cells 0-2 Other Crystals Present Urine Bacteria 1+ Hyaline Casts 0-2 Stool Occult Blood Influenza Type A (PCR) Influenza Type B (PCR) RSV RNA Qual (PCR) SARS-CoV-2 RNA (RT-PCR) Blood Type Antibody Screen 06/14/24 06/14/24 06/14/24 11:18 14:31 14:44 WBC RBC Hgb Hct MCV MCH MCHC RDW Plt Count MPV Immature Gran % (Auto) Neut % (Auto) Lymph % (Auto) [place] % (Auto) Eos % (Auto) Baso % (Auto) Lymph # (Auto) [place] # (Auto) Eos # (Auto) Baso # (Auto) Abs Immat Gran (auto) Absolute Neuts (auto) Absolute Nucleated RBC Nucleated RBC % (auto) Neutrophils % (Manual) Band Neutrophils % Lymphocytes % (Manual) Monocytes % (Manual) Metamyelocytes % Myelocytes % Abs Neuts (Manual) Lymphocytes # (Manual) Monocytes # (Manual) Metamyelocytes # Myelocytes # Nucleated RBCs Toxic Granulation Toxic Vacuolation Dohle Bodies WBC Morphology Comment Platelet Estimate Large Platelets Plt Morphology Comment RBC Morphology Polychromasia Tear Drop Cells Ovalocytes Holley Cells Schistocytes Hold Purple Top PT INR APTT VBG pH VBG pCO2 VBG pO2 VBG HCO3 VBG O2 Saturation VBG Base Excess Sodium Potassium Chloride Carbon Dioxide Anion Gap BUN Creatinine Estim Creat Clear Calc Estimated GFR POC Glucose 172 H Random Glucose Lactic Acid Lactic Acid F/U @ 2Hr 12.2 H* Lactic Acid F/U @ 4Hr Calcium Phosphorus Magnesium Total Bilirubin AST ALT Alkaline Phosphatase Troponin I High Sens B-Natriuretic Peptide Total Protein Albumin TSH Urine Color Urine Appearance Urine pH Ur Specific Ashley Urine Protein Urine Glucose (UA) Urine Ketones Urine Blood Urine Nitrite Ur Leukocyte Esterase Urine RBC Urine WBC Ur Squamous Epith Cells Other Crystals Urine Bacteria Hyaline Casts Stool Occult Blood Influenza Type A (PCR) NEGATIVE Influenza Type B (PCR) NEGATIVE RSV RNA Qual (PCR) NEGATIVE SARS-CoV-2 RNA (RT-PCR) NEGATIVE Blood Type Antibody Screen 06/14/24 06/14/24 06/14/24 18:04 18:29 18:30 WBC 6.5 RBC 2.72 L Hgb 7.4 L Hct 23.1 L MCV 84.9 MCH 27.2 MCHC 32.0 RDW 19.4 H Plt Count 97 L MPV 10.4 Immature Gran % (Auto) Cancelled Neut % (Auto) Cancelled Lymph % (Auto) Cancelled [place] % (Auto) Cancelled Eos % (Auto) Cancelled Baso % (Auto) Cancelled Lymph # (Auto) Cancelled [place] # (Auto) Cancelled Eos # (Auto) Cancelled Baso # (Auto) Cancelled Abs Immat Gran (auto) Cancelled Absolute Neuts (auto) Cancelled Absolute Nucleated RBC 0.040 H Nucleated RBC % (auto) 0.6 H Neutrophils % (Manual) 62 Band Neutrophils % 22 H Lymphocytes % (Manual) 7 L Monocytes % (Manual) 3 Metamyelocytes % 5 Myelocytes % 1 Abs Neuts (Manual) 5.5 Lymphocytes # (Manual) 0.5 L Monocytes # (Manual) 0.2 Metamyelocytes # 0.3 Myelocytes # 0.1 Nucleated RBCs 1 H Toxic Granulation Toxic Vacuolation Dohle Bodies WBC Morphology Comment SEE NOTE Platelet Estimate SLIGHTLY DECREASED Large Platelets Plt Morphology Comment NORMAL RBC Morphology NOTED Polychromasia Tear Drop Cells Ovalocytes 1+ (5-14) Holley Cells 3+ (>5) Schistocytes 2+ (3-5) Hold Purple Top PT INR APTT VBG pH VBG pCO2 VBG pO2 VBG HCO3 VBG O2 Saturation VBG Base Excess Sodium 138 Potassium 5.1 Chloride 106 Carbon Dioxide 15 L Anion Gap 22 H BUN 47 H Creatinine 2.46 H Estim Creat Clear Calc 29.0 Estimated GFR 26 POC Glucose 177 H Random Glucose 204 H Lactic Acid Lactic Acid F/U @ 2Hr Lactic Acid F/U @ 4Hr 10.9 H* Calcium 9.3 D Phosphorus Magnesium Total Bilirubin AST ALT Alkaline Phosphatase Troponin I High Sens B-Natriuretic Peptide Total Protein Albumin TSH Urine Color Urine Appearance Urine pH Ur Specific Ashley Urine Protein Urine Glucose (UA) Urine Ketones Urine Blood Urine Nitrite Ur Leukocyte Esterase Urine RBC Urine WBC Ur Squamous Epith Cells Other Crystals Urine Bacteria Hyaline Casts Stool Occult Blood Influenza Type A (PCR) Influenza Type B (PCR) RSV RNA Qual (PCR) SARS-CoV-2 RNA (RT-PCR) Blood Type Antibody Screen 06/14/24 06/14/24 06/14/24 18:37 21:03 21:58 WBC 7.0 RBC 2.69 L Hgb 7.3 L Hct 22.7 L MCV 84.4 MCH 27.1 MCHC 32.2 RDW 19.4 H Plt Count 117 L MPV 10.0 Immature Gran % (Auto) Cancelled Neut % (Auto) Cancelled Lymph % (Auto) Cancelled [place] % (Auto) Cancelled Eos % (Auto) Cancelled Baso % (Auto) Cancelled Lymph # (Auto) Cancelled [place] # (Auto) Cancelled Eos # (Auto) Cancelled Baso # (Auto) Cancelled Abs Immat Gran (auto) Cancelled Absolute Neuts (auto) Cancelled Absolute Nucleated RBC 0.080 H Nucleated RBC % (auto) 1.1 H Neutrophils % (Manual) 62 Band Neutrophils % 17 H Lymphocytes % (Manual) 7 L Monocytes % (Manual) 7 Metamyelocytes % 6 Myelocytes % 1 Abs Neuts (Manual) 5.5 Lymphocytes # (Manual) 0.5 L Monocytes # (Manual) 0.5 Metamyelocytes # 0.4 Myelocytes # 0.1 Nucleated RBCs 3 H Toxic Granulation Toxic Vacuolation PRESENT Dohle Bodies WBC Morphology Comment Platelet Estimate NORMAL Large Platelets Plt Morphology Comment NORMAL RBC Morphology NOTED Polychromasia Tear Drop Cells Ovalocytes 1+ (5-14) Holley Cells 3+ (>5) Schistocytes 1+ (0-2) Hold Purple Top PT INR APTT VBG pH 7.25 L VBG pCO2 31 VBG pO2 70 VBG HCO3 14 L VBG O2 Saturation 90.0 VBG Base Excess -11.9 Sodium 137 Potassium 5.4 H Chloride 105 Carbon Dioxide 17 L Anion Gap 20 BUN 49 H Creatinine 2.45 H Estim Creat Clear Calc 29.1 Estimated GFR 26 POC Glucose Random Glucose 218 H Lactic Acid 8.6 H* Lactic Acid F/U @ 2Hr Lactic Acid F/U @ 4Hr Calcium 9.4 Phosphorus 3.2 Magnesium 2.2 Total Bilirubin AST ALT Alkaline Phosphatase Troponin I High Sens B-Natriuretic Peptide Total Protein Albumin TSH Urine Color Urine Appearance Urine pH Ur Specific Ashley Urine Protein Urine Glucose (UA) Urine Ketones Urine Blood Urine Nitrite Ur Leukocyte Esterase Urine RBC Urine WBC Ur Squamous Epith Cells Other Crystals Urine Bacteria Hyaline Casts Stool Occult Blood POSITIVE Influenza Type A (PCR) Influenza Type B (PCR) RSV RNA Qual (PCR) SARS-CoV-2 RNA (RT-PCR) Blood Type Antibody Screen 06/14/24 06/14/24 06/15/24 22:13 23:59 00:14 WBC RBC Hgb Hct MCV MCH MCHC RDW Plt Count MPV Immature Gran % (Auto) Neut % (Auto) Lymph % (Auto) [place] % (Auto) Eos % (Auto) Baso % (Auto) Lymph # (Auto) [place] # (Auto) Eos # (Auto) Baso # (Auto) Abs Immat Gran (auto) Absolute Neuts (auto) Absolute Nucleated RBC Nucleated RBC % (auto) Neutrophils % (Manual) Band Neutrophils % Lymphocytes % (Manual) Monocytes % (Manual) Metamyelocytes % Myelocytes % Abs Neuts (Manual) Lymphocytes # (Manual) Monocytes # (Manual) Metamyelocytes # Myelocytes # Nucleated RBCs Toxic Granulation Toxic Vacuolation Dohle Bodies WBC Morphology Comment Platelet Estimate Large Platelets Plt Morphology Comment RBC Morphology Polychromasia Tear Drop Cells Ovalocytes Holley Cells Schistocytes Hold Purple Top PT INR APTT VBG pH 7.36 VBG pCO2 26 VBG pO2 66 VBG HCO3 15 L VBG O2 Saturation 91.0 VBG Base Excess -8.9 Sodium Potassium Chloride Carbon Dioxide Anion Gap BUN Creatinine Estim Creat Clear Calc Estimated GFR POC Glucose 215 H Random Glucose Lactic Acid Lactic Acid F/U @ 2Hr 5.8 H* Lactic Acid F/U @ 4Hr Calcium Phosphorus Magnesium Total Bilirubin AST ALT Alkaline Phosphatase Troponin I High Sens B-Natriuretic Peptide Total Protein Albumin TSH Urine Color Urine Appearance Urine pH Ur Specific Ashley Urine Protein Urine Glucose (UA) Urine Ketones Urine Blood Urine Nitrite Ur Leukocyte Esterase Urine RBC Urine WBC Ur Squamous Epith Cells Other Crystals Urine Bacteria Hyaline Casts Stool Occult Blood Influenza Type A (PCR) Influenza Type B (PCR) RSV RNA Qual (PCR) SARS-CoV-2 RNA (RT-PCR) Blood Type Antibody Screen 06/15/24 06/15/24 06/15/24 01:04 02:36 05:16 WBC 9.0 RBC 2.73 L Hgb 7.3 L Hct 22.3 L MCV 81.7 MCH 26.7 L MCHC 32.7 RDW 19.2 H Plt Count 130 L MPV 10.1 Immature Gran % (Auto) Cancelled Neut % (Auto) Cancelled Lymph % (Auto) Cancelled [place] % (Auto) Cancelled Eos % (Auto) Cancelled Baso % (Auto) Cancelled Lymph # (Auto) Cancelled [place] # (Auto) Cancelled Eos # (Auto) Cancelled Baso # (Auto) Cancelled Abs Immat Gran (auto) Cancelled Absolute Neuts (auto) Cancelled Absolute Nucleated RBC 0.090 H Nucleated RBC % (auto) 1.0 H Neutrophils % (Manual) 44 L Band Neutrophils % 36 H Lymphocytes % (Manual) 9 L Monocytes % (Manual) 3 Metamyelocytes % 7 Myelocytes % 1 Abs Neuts (Manual) 7.2 Lymphocytes # (Manual) 0.8 L Monocytes # (Manual) 0.3 Metamyelocytes # 0.6 Myelocytes # 0.1 Nucleated RBCs 1 H Toxic Granulation PRESENT Toxic Vacuolation PRESENT Dohle Bodies PRESENT WBC Morphology Comment Platelet Estimate SLIGHTLY DECREASED Large Platelets Plt Morphology Comment NORMAL RBC Morphology NOTED Polychromasia 1+ (0-2) Tear Drop Cells Ovalocytes 1+ (5-14) Holley Cells 3+ (>5) Schistocytes Hold Purple Top PT INR APTT VBG pH 7.50 H VBG pCO2 28 VBG pO2 48 VBG HCO3 22 VBG O2 Saturation 80.0 VBG Base Excess -0.4 Sodium Potassium Chloride Carbon Dioxide Anion Gap BUN Creatinine Estim Creat Clear Calc Estimated GFR POC Glucose Random Glucose Lactic Acid Lactic Acid F/U @ 2Hr Lactic Acid F/U @ 4Hr 3.6 H* Calcium Phosphorus Magnesium Total Bilirubin AST ALT Alkaline Phosphatase Troponin I High Sens B-Natriuretic Peptide Total Protein Albumin TSH Urine Color Urine Appearance Urine pH Ur Specific Ashley Urine Protein Urine Glucose (UA) Urine Ketones Urine Blood Urine Nitrite Ur Leukocyte Esterase Urine RBC Urine WBC Ur Squamous Epith Cells Other Crystals Urine Bacteria Hyaline Casts Stool Occult Blood Influenza Type A (PCR) Influenza Type B (PCR) RSV RNA Qual (PCR) SARS-CoV-2 RNA (RT-PCR) Blood Type O Positive Antibody Screen NEGATIVE 06/15/24 05:18 WBC 10.8 RBC 2.63 L Hgb 7.1 L Hct 21.1 L MCV 80.2 MCH 27.0 MCHC 33.6 RDW 18.8 H Plt Count 111 L MPV 9.9 Immature Gran % (Auto) Cancelled Neut % (Auto) Cancelled Lymph % (Auto) Cancelled [place] % (Auto) Cancelled Eos % (Auto) Cancelled Baso % (Auto) Cancelled Lymph # (Auto) Cancelled [place] # (Auto) Cancelled Eos # (Auto) Cancelled Baso # (Auto) Cancelled Abs Immat Gran (auto) Cancelled Absolute Neuts (auto) Cancelled Absolute Nucleated RBC 0.110 H Nucleated RBC % (auto) 1.0 H Neutrophils % (Manual) 40 L Band Neutrophils % 46 H Lymphocytes % (Manual) 8 L Monocytes % (Manual) 1 L Metamyelocytes % 5 Myelocytes % Abs Neuts (Manual) 9.3 H Lymphocytes # (Manual) 0.9 L Monocytes # (Manual) 0.1 Metamyelocytes # 0.5 Myelocytes # Nucleated RBCs 2 H Toxic Granulation PRESENT Toxic Vacuolation PRESENT Dohle Bodies PRESENT WBC Morphology Comment Platelet Estimate SLIGHTLY DECREASED Large Platelets PRESENT Plt Morphology Comment NOTED RBC Morphology NOTED Polychromasia 1+ (0-2) Tear Drop Cells 1+ (0-2) Ovalocytes 1+ (5-14) Beatrice Cells 3+ (>5) Schistocytes 1+ (0-2) Hold Purple Top PT 41.0 H D INR 3.4 H APTT VBG pH VBG pCO2 VBG pO2 VBG HCO3 VBG O2 Saturation VBG Base Excess Sodium 140 Potassium 5.1 Chloride 108 Carbon Dioxide 22 Anion Gap 15 BUN 51 H Creatinine 2.88 H Estim Creat Clear Calc 24.8 Estimated GFR 21 POC Glucose Random Glucose 153 H Lactic Acid Lactic Acid F/U @ 2Hr Lactic Acid F/U @ 4Hr Calcium 9.7 Phosphorus 2.0 L Magnesium 2.1 Total Bilirubin AST ALT Alkaline Phosphatase Troponin I High Sens B-Natriuretic Peptide Total Protein Albumin 3.2 L TSH Urine Color Urine Appearance Urine pH Ur Specific Ashley Urine Protein Urine Glucose (UA) Urine Ketones Urine Blood Urine Nitrite Ur Leukocyte Esterase Urine RBC Urine WBC Ur Squamous Epith Cells Other Crystals Urine Bacteria Hyaline Casts Stool Occult Blood Influenza Type A (PCR) Influenza Type B (PCR) RSV RNA Qual (PCR) SARS-CoV-2 RNA (RT-PCR) Blood Type Antibody Screen Progress Note: A&P Assessment and plan (1) Urinary tract infection: Status: Acute (2) Pulmonary aspiration: Status: Acute (3) Acute respiratory failure with hypoxia: Status: Acute (4) Coagulopathy: Status: Acute (5) Blood loss anemia: Status: Acute (6) Left hemiparesis: Status: Acute (7) Hypothermia: Status: Acute (8) Type 2 diabetes mellitus: Status: Acute (9) Schizophrenia: Status: Acute (10) CKD (chronic kidney disease): Status: Acute Plan Assessment: 73-year-old gentleman with underlying schizophrenia, dementia, left hemiparesis post CVA admitted with alteration of mental status and hypoxia requiring intubation and ventilatory support Plan: Neuro: Alteration of mental status, likely encephalopathy on the background of dementia, schizophrenia, and lack of decision-making capacity with court- appointed guardian Cardiac: Septic shock, continue to titrate off pressor support as tolerated. Underlying AFib on Eliquis (held) and chronic diastolic congestive heart failure. Pulmonary: Acute respiratory failure with hypoxia likely secondary to pulmonary aspiration now requiring ventilatory support, continue to titrate off as tolerated. Renal: Acute on chronic renal failure, likely secondary to urinary tract infection. Non oliguric. Continue to monitor renal indices and urine output. No evidence of hydronephrosis. Endo: No acute issues. GI: Constipation, improved with enema. ID: Septic shock with likely source. Cultures are pending. Continue broad- spectrum antibiotic coverage. Heme/Onc: Coagulopathy, likely secondary to nutritional deficiencies and septic shock vitamin K administered. Continue to monitor to blood cell counts. Psych: No acute issues. Miscellaneous: No acute issues. Prophylaxis: Pneumatic compression, famotidine Diet: NPO Critical care time spent: 60 minutes Quality Stroke Does the patient have a stroke diagnosis?: No VTE Prior VTE?: No VTE Risk Level:: Medical - moderate - high VTE Device Contraindication: Treatment Not Indicated VTE Drug Contraindication: N/A - Med Ordered
--- NOTE | 2024-06-15 08:55 | P.CDIM_ITS ---
PROVIDER RESPONSE TEXT: To clarify, the appropriate diagnosis supported by the clinical indicators: Septic: probable QUERY TEXT: PHYSICIAN'S DOCUMENTATION REQUEST Date of Query: 06/15/2024 08:04 AM EDT Patient Name: Aristeo Garrett Admit Date: 06/14/2024 Dear Lupillo Contreras MD, A review of the medical record indicates additional documentation may be needed. Please review below and update the documentation accordingly. Clinical Indicators: ICU - Alteration of mental status, likely encephalopathy. UTI ED: NH patient presented today with shortness of breath, change in mental status and weakness. Toxic appearing male on BIPAP obtunded. Worsening confusion. Based on the above, please further specify, in the Progress Notes, the known or suspected type of the documented encephalopathy if known: Metabolic possible, probable, suspected, etc. Septic possible, probable, suspected, etc. Toxic possible, probable, suspected, etc. Toxic metabolic possible, probable, suspected, etc. Other (explain) Clinically unable to determine (explain) Thank you, Debbie Fang, CCS, CDIS Use of terms such as suspected, likely, concern for, or probable (associated with a specific diagnosi s that is being evaluated, monitored, or treated as if it exists) are acceptable and can be coded in the inpatient se tting, when documented at the time of discharge. Please use your independent medical judgment in providing your response. THIS QUERY IS PART OF THE PERMANENT MEDICAL RECORD
--- NOTE | 2024-06-15 08:55 | P.CDIM_ITS ---
PROVIDER RESPONSE TEXT: To clarify, the appropriate diagnosis supported by the clinical indicators: Aspiration Pneumonitis: gastric contents QUERY TEXT: PHYSICIAN'S DOCUMENTATION REQUEST Date of Query: 06/15/2024 08:11 AM EDT Patient Name: Aristeo Garrett Admit Date: 06/14/2024 Dear Lupillo Contreras MD, A review of the medical record indicates additional documentation may be needed. Please review below and update the documentation accordingly. Clinical Indicators: ICU H&P: Acute respiratory failure with hypoxia likely secondary to pulmonary aspiration now requirin g ventilatory support, continue to titrate off as tolerated. ED: During the intubation patient has massive amount of vomiting. Able to get ETT in prior to all the vomitus came up. Based on the above, could you clarify in the Progress Notes further specificity regarding the pulmona ry aspiration? Aspiration Pneumonitis Please indicate substance such as food or vomitus, oils, or other solids or liquids Aspiration Pneumonia Other (explain) Clinically unable to determine (explain) Thank you, Debbie Fang, CCS, CDIS Use of terms such as suspected, likely, concern for, or probable (associated with a specific diagnosi s that is being evaluated, monitored, or treated as if it exists) are acceptable and can be coded in the inpatient se tting, when documented at the time of discharge. Please use your independent medical judgment in providing your response. THIS QUERY IS PART OF THE PERMANENT MEDICAL RECORD
--- NOTE | 2024-06-15 09:27 | MHC.CLN ---
PT WITH INCREASED NUTRITION RISK R/T PRESSURE INJURY PT IS INTUBATED AND SEDATED CURRENTLY NPO IF TF NEEDED; RECOMMEND PROMOTE AT MAX GOAL RATE 75ML/HR TO PROVIDE 1800KCALS (2081KCALS WITH SEDATION; 24KCALS/KG ABW), 112.5G PROTEIN (1.3G/KG), 1510ML FREE WATER FROM FORMULA MONITOR TOLERANCE AND LYTES SEE ALSO FULL CLINICAL NUTRITION ASSESSMENT
[2024-06-15 11:56] LABS: Glucose, Whole Blood 107 mg/dL (60-115)
[2024-06-15] MEDS: cefEPime HCl 1 GM in 0.9 % Sodium Chloride 50 ML IV (11:59)
--- NOTE | 2024-06-15 14:27 | MHC.CM.PN ---
Pt intubated and unable to participate in CM assessment. Call placed to guardianBonny: message left requesting a callback. Guardianship on file does not have expansion provision for code status change Call placed to [facility] where pt is a LTC resident. Spoke with RN who states pt is minimally verbal and alert to self. He is a sit to stand transfer, dependent w/ADL's, pureed diet w/thin liquids and supervision/cueing. He has an indwelling urinary cath and is incontinent of stool. Pt is a bedhold and will return to [facility] when medically stable via BLS.
[2024-06-15 14:43] LABS: Mean Corpuscular HGB Conc 34.3 g/dl (31.0-36.0); Mean Corpuscular Hemoglobin 27.2 pg (27.0-33.0); Mean Corpuscular Volume 79.4 fL (80.0-98.0); Platelet Count 125 X10*3/uL (160-400); Red Blood Count 2.57 X10*6/uL (4.60-5.80); Red Cell Distribution Width 18.9 % (11.0-16.0)
[2024-06-15 14:44] LABS: WBC ABN SCTR FOR CBC 1
[2024-06-15 14:50] LABS: Hematocrit 20.4 % (42.0-52.0)
[2024-06-15 14:56] LABS: Band Neutrophils Percent 21 % (3-5); Lymphocytes Percent Manual 10 % (20-40); Metamyelocytes Percent 3 %; Neutrophils Percent Manual 66 % (45-73); Nucleated Red Blood Cells 1 /100WBC (0-0)
[2024-06-15 14:58] LABS: Microcytosis 1+ (5-14) /OIF; RBC Morphology NOTED; Schistocytes 1+ (0-2) /OIF
[2024-06-15 14:59] LABS: Burr Cells 1+ (0-2) /OIF; Dohle Bodies PRESENT; Large Platelet PRESENT; Platelet Estimate DECREASED (NORMAL); Platelet Morphology Comment NOTED; Toxic Vacuolation PRESENT
[2024-06-15 15:00] LABS: Lymphocytes Absolute Manual 1.4 X10*3/uL (1.2-4.9); Mean Platelet Volume 10.4 fL (9.4-12.4); Metamyelocytes Absolute 0.4 X10*3/uL; Neutrophils Absolute Manual 11.7 X10*3/uL (2.0-8.3); White Blood Count 13.5 X10*3/uL (4.8-10.8)
--- NOTE | 2024-06-15 16:21 | HO.WOUND ---
Wound Consult: Initial 73yr old?male admitted to [facility] on 06/14/24 - See progress notes and H&P for detailed history.? Wound consult placed for sacrum and left foot wounds POA.? The below documentation is made after chart review and photo review - will attempt to assess wound in person 06/16/24. Sacrum - Deep Tissue Injury in Evolution ?Present on Admission Wound Bed: dark pigmented tissue - macerated edges and red moist central wound bed Drainage / Odor: unknown Edges: Irregular ? Goals of Treatment: Triad and foam dressing to allow for autolytic healing and protect from Left foot / Toes Deep Tissue Injury in Evolution ?Present on Admission Wound Bed: dark pigmented tissue - macerated edges and red moist central wound bed Drainage / Odor: unknown Edges: Irregular ? Goals of Treatment: [place] with betadine to dry and provide antimicrobial environment Recommendations: 1. Turn and Reposition every 2 hours and as needed for patient comfort.? Use pillows or wedges to support off loading positions. 2. Off Load all bony prominences with use of pillows and heel boots if needed.? Apply Preventative foams where needed. ? 3. Monitor for incontinence and moisture control, use barrier creams when needed for prevention and treatment. 4. Provide adequate and supplemental nutrition.? 5. Order or Continue low air loss mattress. 6. When applicable maintain blood glucose levels per Providers order. 7. Sacrum - Off Load Pressure? - Cleanse with PH balance spray or wipes, pat dry. ?Apply thin layer of Triad to wound bed. Do not remove all of paste between applications as this may cause further skin damage.? Cover with foam dressing to aid in off loading and protection from friction. Change every other day and PRN. 8. Left Foot / Toe - [place] with Betadine and cover with dry gauze dressing, Daily. Re-consult wound care Nurse for wound deterioration or wound changes.
[2024-06-15 17:53] LABS: Glucose, Whole Blood 128 mg/dL (60-115)
[2024-06-15 19:39] LABS: Mean Corpuscular HGB Conc 34.4 g/dl (31.0-36.0); Mean Corpuscular Hemoglobin 27.3 pg (27.0-33.0); Mean Corpuscular Volume 79.6 fL (80.0-98.0); Mean Platelet Volume 10.9 fL (9.4-12.4); NRBC Pct Auto 0.8 /100WBC (0.0-0.2); Platelet Count 112 X10*3/uL (160-400); Red Blood Count 2.45 X10*6/uL (4.60-5.80); Red Cell Distribution Width 18.8 % (11.0-16.0)
[2024-06-15 19:44] LABS: WBC ABN SCTR FOR CBC 1
[2024-06-15 19:50] LABS: Hematocrit 19.5 % (42.0-52.0); Hemoglobin 6.7 g/dl (14.0-18.0)
[2024-06-15 19:51] LABS: Albumin Level 3.9 g/dL (3.5-5.0); Anion Gap 16 (12-20); Blood Urea Nitrogen 59 mg/dL (9-16); Calcium 10.5 mg/dL (8.4-10.2); Carbon Dioxide 26 mmol/L (22-29); Chloride 107 mmol/L (96-108); Creatinine Clr Calc Pharmacy 20.5; Estimated Glomerular Filt Rate 19; Glucose Random 137 mg/dL (60-115); Magnesium 2.2 mg/dL (1.6-2.6); Phosphorus 4.1 mg/dL (2.7-4.5); Potassium 4.6 mmol/L (3.3-5.1); Sodium 144 mmol/L (135-145)
[2024-06-15 20:22] LABS: Band Neutrophils Percent 20 % (3-5); Lymphocytes Percent Manual 11 % (20-40); Metamyelocytes Percent 1 %; Monocytes Percent Manual 1 % (2-11); Neutrophils Percent Manual 67 % (45-73); Nucleated Red Blood Cells 7 /100WBC (0-0)
[2024-06-15 20:23] LABS: Burr Cells 2+ (3-5) /OIF; RBC Morphology NOTED; Target Cells 1+ (5-14) /OIF
[2024-06-15 20:24] LABS: Toxic Vacuolation PRESENT
[2024-06-15 20:25] LABS: Giant Platelet PRESENT; Platelet Estimate NORMAL (NORMAL); Platelet Morphology Comment NOTED
[2024-06-15 20:27] LABS: Lymphocytes Absolute Manual 1.4 X10*3/uL (1.2-4.9); Metamyelocytes Absolute 0.1 X10*3/uL; Monocytes Absolute Manual 0.1 X10*3/uL (0.1-1.2); Neutrophils Absolute Manual 11.1 X10*3/uL (2.0-8.3); White Blood Count 12.8 X10*3/uL (4.8-10.8)
[2024-06-16] VITALS (32 sets, daily range): BP systolic 108–166; BP diastolic 51–76; PULSE 59–89; RESP 16–27; TEMP 34–36.9; O2SAT 90–100; BMI 26.6
[2024-06-16 00:22] LABS: Glucose, Whole Blood 153 mg/dL (60-115)
[2024-06-16] MEDS: 0.9 % Sodium Chloride Flush 3 ML SYRINGE IVFLUSH ×4 (00:22→19:47)
[2024-06-16] MEDS: levETIRAcetam in NaCl (iso-os) 1,000 MG/100 ML PIGGYBACK 400 MG IV ×2 (00:27→12:13)
[2024-06-16] MEDS: Albumin Human 25 % 100 ML IV (02:42)
[2024-06-16] MEDS: propofoL 1,000 MG/100 ML VIAL 10.63 MG IVCONT (02:47)
[2024-06-16 05:18] LABS: VBG Base Excess 1.8 mmol/L; VBG HCO3 24 mmol/L (22-26); VBG pCO2 32 mmHg; VBG pH 7.48 (7.32-7.43); VBG pO2 50 mmHg
[2024-06-16] MEDS: Pantoprazole Sodium 40 MG/10 ML VIAL IVPUSH ×2 (05:22→15:38)
[2024-06-16 05:27] LABS: Venous Blood Gas Refer to POC result
[2024-06-16 05:29] LABS: Glucose, Whole Blood 113 mg/dL (60-115)
[2024-06-16 05:46] LABS: Hemoglobin 7.8 g/dl (14.0-18.0); PLT CLUMP 1
[2024-06-16 05:48] LABS: Hematocrit 22.7 % (42.0-52.0); Mean Corpuscular HGB Conc 34.4 g/dl (31.0-36.0); Mean Corpuscular Hemoglobin 27.3 pg (27.0-33.0); Mean Corpuscular Volume 79.4 fL (80.0-98.0); Mean Platelet Volume 10.3 fL (9.4-12.4); Red Blood Count 2.86 X10*6/uL (4.60-5.80); Red Cell Distribution Width 17.3 % (11.0-16.0)
[2024-06-16 05:51] LABS: NRBC Pct Auto 1.5 /100WBC (0.0-0.2); WBC ABN SCTR FOR CBC 1
[2024-06-16 05:52] LABS: Platelet Count 111 X10*3/uL (160-400); White Blood Count 12.2 X10*3/uL (4.8-10.8)
[2024-06-16 05:53] LABS: INTERNATIONAL NORM RATIO 2.4 (0.9-1.1); Prothrombin Time 28.9 SEC (11.1-13.3)
[2024-06-16 06:06] LABS: Alanine Aminotransferase 22 U/L (0-40); Albumin Level 4.5 g/dL (3.5-5.0); Alkaline Phosphatase 153 U/L (39-117); Anion Gap 18 (12-20); Aspartate Amino Transferase 21 U/L (5-37); Bilirubin Total 1.8 mg/dL (0.0-1.0); Blood Urea Nitrogen 64 mg/dL (9-16); Calcium 10.8 mg/dL (8.4-10.2); Carbon Dioxide 24 mmol/L (22-29); Chloride 108 mmol/L (96-108); Creatinine Clr Calc Pharmacy 21.7; Estimated Glomerular Filt Rate 20; Glucose Random 151 mg/dL (60-115); Magnesium 2.3 mg/dL (1.6-2.6); Phosphorus 4.5 mg/dL (2.7-4.5); Potassium 4.1 mmol/L (3.3-5.1); Sodium 146 mmol/L (135-145); Total Protein 7.7 g/dL (6.5-8.0)
[2024-06-16 06:19] LABS: Band Neutrophils Percent 14 % (3-5); Lymphocytes Absolute Manual 1.6 X10*3/uL (1.2-4.9); Lymphocytes Percent Manual 13 % (20-40); Metamyelocytes Absolute 0.1 X10*3/uL; Metamyelocytes Percent 1 %; Monocytes Absolute Manual 0.5 X10*3/uL (0.1-1.2); Monocytes Percent Manual 4 % (2-11); Neutrophils Percent Manual 68 % (45-73); RBC Morphology NOTED
[2024-06-16 06:20] LABS: Burr Cells 3+ (>5) /OIF; Ovalocytes 1+ (5-14) /OIF; Schistocytes 1+ (0-2) /OIF
[2024-06-16 06:21] LABS: Dohle Bodies PRESENT; Large Platelet PRESENT; Platelet Estimate SLIGHTLY DECREASED (NORMAL); Platelet Morphology Comment NOTED; Toxic Granulation PRESENT; Toxic Vacuolation PRESENT
[2024-06-16] MEDS: Chlorhexidine Gluc Oral Rinse 15 ML MOUTHWASH BUCCAL ×3 (07:34→20:34)
--- NOTE | 2024-06-16 08:47 | P.CDIM_ITS ---
PROVIDER RESPONSE TEXT: To clarify, the appropriate diagnosis supported by the clinical indicators: Deep Tissue Injury sacrum QUERY TEXT: PHYSICIAN'S DOCUMENTATION REQUEST Date of Query: 06/16/2024 07:12 AM EDT Patient Name: Aristeo Garrett Admit Date: 06/14/2024 Dear Lupillo Contrreas MD, A review of the medical record indicates additional documentation may be needed. Please review below and update the documentation accordingly. Clinical Indicators: Wound care assessment - Deep tissue injury sacrum, in evolution, present on arrival Macerate edges Triad/foam dressing. Based on the above, could you please provide further information regarding the ulcer/wound/injury: Deep Tissue Injury sacrum Other (explain) Clinically unable to determine (explain) Thank you, Debbie Fang, CCS, CDIS Use of terms such as suspected, likely, concern for, or probable (associated with a specific diagnosi s that is being evaluated, monitored, or treated as if it exists) are acceptable and can be coded in the inpatient se tting, when documented at the time of discharge. Please use your independent medical judgment in providing your response. THIS QUERY IS PART OF THE PERMANENT MEDICAL RECORD
--- NOTE | 2024-06-16 08:47 | P.CDIM_ITS ---
PROVIDER RESPONSE TEXT: To clarify, the appropriate diagnosis supported by the clinical indicators: Deep Tissue Injury left foot QUERY TEXT: PHYSICIAN'S DOCUMENTATION REQUEST Date of Query: 06/16/2024 07:14 AM EDT Patient Name: Aristeo Garrett Admit Date: 06/14/2024 Dear Lupillo Contreras MD, A review of the medical record indicates additional documentation may be needed. Please review below and update the documentation accordingly. Clinical Indicators: Wound care assessment notes: Deep tissue injury left foot in evolution, present on admission. [place] with betadine to dry. Based on the above, could you please provide further information regarding the ulcer/wound/injury: Deep Tissue Injury left foot Other (explain) Clinically unable to determine (explain) Thank you, Debbie Fang, CCS, CDIS Use of terms such as suspected, likely, concern for, or probable (associated with a specific diagnosi s that is being evaluated, monitored, or treated as if it exists) are acceptable and can be coded in the inpatient se tting, when documented at the time of discharge. Please use your independent medical judgment in providing your response. THIS QUERY IS PART OF THE PERMANENT MEDICAL RECORD
[2024-06-16] MEDS: cefEPime HCl 1 GM in 0.9 % Sodium Chloride 50 ML IV (10:02)
--- NOTE | 2024-06-16 10:26 | P.CDIM_ITS ---
PROVIDER RESPONSE TEXT: To clarify, the appropriate diagnosis supported by the clinical indicators: Acute blood loss anemia QUERY TEXT: PHYSICIAN'S DOCUMENTATION REQUEST Date of Query: 06/16/2024 10:06 AM EDT Patient Name: Aristeo Garrett Admit Date: 06/14/2024 Dear Lupillo Contreras MD, A review of the medical record indicates additional documentation may be needed. Please review below and update the documentation accordingly. Clinical Indicators: ICU progress note: Assessment and Plan: Blood loss anemia, acute H/H 6.7 19.5 Transfuse 1 unit PRBC Consistency of a noted diagnosis into the body of the written Plan: Acute blood loss anemia Other (explain) Clinically unable to determine (explain) Thank you, Debbie Fang, CCS, CDIS Use of terms such as suspected, likely, concern for, or probable (associated with a specific diagnosi s that is being evaluated, monitored, or treated as if it exists) are acceptable and can be coded in the inpatient se tting, when documented at the time of discharge. Please use your independent medical judgment in providing your response. THIS QUERY IS PART OF THE PERMANENT MEDICAL RECORD
--- NOTE | 2024-06-16 10:36 | P.PNCC_ITS ---
Subjective Subjective Date of Service: 06/16/24 Interval History: 73-year-old gentleman with underlying history of diabetes mellitus chronic kidney disease, paroxysmal AFib on Eliquis, diastolic heart failure, dementia, pontine CVA with residual left hemiparesis, schizophrenia admitted on 06/14/2024 off [facility] nurse facility where he resides with worsening confusion. On ER evaluation patient hypotensive and hypoxic requiring intubation for airway protection and pressor support. Started on empiric antibiotics and admitted to the intensive care unit. No events overnight. Critical Care Time (minutes): 60 Physical Exam 2 Vital Signs: Vital Signs: Last Vital Signs Temp 98.4 F 06/16/24 10:00 Pulse 73 06/16/24 10:00 Resp 16 06/16/24 10:00 BP 143/67 H 06/16/24 10:00 Pulse Ox 98 06/16/24 10:00 O2 Del Method Mechanical Ventil ation 06/16/24 10:00 FiO2 30 06/16/24 10:00 BMI result Body Mass Index 26.6 Const: General: no acute distress and other (Sedated on ventilatory support) Eyes: Sclerae: sclerae normal EOM: EOMs intact bilaterally Neck: Neck: Yes no lymphadenopathy, Yes trachea midline and Yes supple Resp: Auscultation: clear to auscultation bilaterally Cardio: Rate: regular rate Rhythm: regular rhythm Heart sounds: no gallops, no murmurs and no rubs GI: Palpation (GI): Soft to palpation and Other GI palpation findings present ( Nontender) Auscultation: normal bowel sounds Extrem: General: Yes no pedal edema, No clubbing and No cyanosis Objective Data Labs 06/16/24 04:51 06/16/24 04:51 Labs: Laboratory Results - last 24 hr 06/14/24 06/15/24 06/15/24 18:30 02:36 11:53 WBC RBC Hgb Hct MCV MCH MCHC RDW Plt Count MPV Immature Gran % (Auto) Neut % (Auto) Lymph % (Auto) [place] % (Auto) Eos % (Auto) Baso % (Auto) Lymph # (Auto) [place] # (Auto) Eos # (Auto) Baso # (Auto) Abs Immat Gran (auto) Absolute Neuts (auto) Absolute Nucleated RBC Nucleated RBC % (auto) Neutrophils % (Manual) Band Neutrophils % Lymphocytes % (Manual) Monocytes % (Manual) Metamyelocytes % Abs Neuts (Manual) Lymphocytes # (Manual) Monocytes # (Manual) Metamyelocytes # Nucleated RBCs Toxic Granulation Toxic Vacuolation Dohle Bodies Platelet Estimate Large Platelets Giant Platelets Plt Morphology Comment RBC Morphology Microcytosis Target Cells Ovalocytes [place] Cells Schistocytes Smear Path Review SEE NOTE PT INR VBG pH VBG pCO2 VBG pO2 VBG HCO3 VBG O2 Saturation VBG Base Excess Sodium Potassium Chloride Carbon Dioxide Anion Gap BUN Creatinine Estim Creat Clear Calc Estimated GFR POC Glucose 107 Random Glucose Calcium Phosphorus Magnesium Total Bilirubin AST ALT Alkaline Phosphatase Total Protein Albumin Blood Type O Positive Antibody Screen NEGATIVE Crossmatch See Detail 06/15/24 06/15/24 06/15/24 13:54 17:50 19:22 WBC 13.5 H 12.8 H RBC 2.57 L 2.45 L Hgb 7.0 L* 6.7 L* Hct 20.4 L* 19.5 L* MCV 79.4 L 79.6 L MCH 27.2 27.3 MCHC 34.3 34.4 RDW 18.9 H 18.8 H Plt Count 125 L 112 L MPV 10.4 10.9 Immature Gran % (Auto) Cancelled Cancelled Neut % (Auto) Cancelled Cancelled Lymph % (Auto) Cancelled Cancelled [place] % (Auto) Cancelled Cancelled Eos % (Auto) Cancelled Cancelled Baso % (Auto) Cancelled Cancelled Lymph # (Auto) Cancelled Cancelled [place] # (Auto) Cancelled Cancelled Eos # (Auto) Cancelled Cancelled Baso # (Auto) Cancelled Cancelled Abs Immat Gran (auto) Cancelled Cancelled Absolute Neuts (auto) Cancelled Cancelled Absolute Nucleated RBC 0.140 H 0.100 H Nucleated RBC % (auto) 1.0 H 0.8 H Neutrophils % (Manual) 66 67 Band Neutrophils % 21 H 20 H Lymphocytes % (Manual) 10 L 11 L Monocytes % (Manual) 1 L Metamyelocytes % 3 1 Abs Neuts (Manual) 11.7 H 11.1 H Lymphocytes # (Manual) 1.4 1.4 Monocytes # (Manual) 0.1 Metamyelocytes # 0.4 0.1 Nucleated RBCs 1 H 7 H Toxic Granulation Toxic Vacuolation PRESENT PRESENT Dohle Bodies PRESENT Platelet Estimate DECREASED NORMAL Large Platelets PRESENT Giant Platelets PRESENT Plt Morphology Comment NOTED NOTED RBC Morphology NOTED NOTED Microcytosis 1+ (5-14) Target Cells 1+ (5-14) Ovalocytes [place] Cells 1+ (0-2) 2+ (3-5) Schistocytes 1+ (0-2) Smear Path Review PT INR VBG pH VBG pCO2 VBG pO2 VBG HCO3 VBG O2 Saturation VBG Base Excess Sodium 144 Potassium 4.6 Chloride 107 Carbon Dioxide 26 Anion Gap 16 BUN 59 H Creatinine 3.20 H Estim Creat Clear Calc 20.5 Estimated GFR 19 POC Glucose 128 H Random Glucose 137 H Calcium 10.5 H D Phosphorus 4.1 Magnesium 2.2 Total Bilirubin AST ALT Alkaline Phosphatase Total Protein Albumin 3.9 Blood Type Antibody Screen Crossmatch 06/16/24 06/16/24 06/16/24 00:17 04:51 05:08 WBC 12.2 H RBC 2.86 L Hgb 7.8 L Hct 22.7 L MCV 79.4 L MCH 27.3 MCHC 34.4 RDW 17.3 H Plt Count 111 L MPV 10.3 Immature Gran % (Auto) Cancelled Neut % (Auto) Cancelled Lymph % (Auto) Cancelled [place] % (Auto) Cancelled Eos % (Auto) Cancelled Baso % (Auto) Cancelled Lymph # (Auto) Cancelled [place] # (Auto) Cancelled Eos # (Auto) Cancelled Baso # (Auto) Cancelled Abs Immat Gran (auto) Cancelled Absolute Neuts (auto) Cancelled Absolute Nucleated RBC 0.180 H Nucleated RBC % (auto) 1.5 H Neutrophils % (Manual) 68 Band Neutrophils % 14 H Lymphocytes % (Manual) 13 L Monocytes % (Manual) 4 Metamyelocytes % 1 Abs Neuts (Manual) 10.0 H Lymphocytes # (Manual) 1.6 Monocytes # (Manual) 0.5 Metamyelocytes # 0.1 Nucleated RBCs Toxic Granulation PRESENT Toxic Vacuolation PRESENT Dohle Bodies PRESENT Platelet Estimate SLIGHTLY DECREASED Large Platelets PRESENT Giant Platelets Plt Morphology Comment NOTED RBC Morphology NOTED Microcytosis Target Cells Ovalocytes 1+ (5-14) [place] Cells 3+ (>5) Schistocytes 1+ (0-2) Smear Path Review PT 28.9 H D INR 2.4 H VBG pH 7.48 H VBG pCO2 32 VBG pO2 50 VBG HCO3 24 VBG O2 Saturation 82.0 VBG Base Excess 1.8 Sodium 146 H Potassium 4.1 Chloride 108 Carbon Dioxide 24 Anion Gap 18 BUN 64 H Creatinine 3.03 H Estim Creat Clear Calc 21.7 Estimated GFR 20 POC Glucose 153 H Random Glucose 151 H Calcium 10.8 H Phosphorus 4.5 Magnesium 2.3 Total Bilirubin 1.8 H AST 21 ALT 22 Alkaline Phosphatase 153 H Total Protein 7.7 Albumin 4.5 Blood Type Antibody Screen Crossmatch 06/16/24 05:25 WBC RBC Hgb Hct MCV MCH MCHC RDW Plt Count MPV Immature Gran % (Auto) Neut % (Auto) Lymph % (Auto) [place] % (Auto) Eos % (Auto) Baso % (Auto) Lymph # (Auto) [place] # (Auto) Eos # (Auto) Baso # (Auto) Abs Immat Gran (auto) Absolute Neuts (auto) Absolute Nucleated RBC Nucleated RBC % (auto) Neutrophils % (Manual) Band Neutrophils % Lymphocytes % (Manual) Monocytes % (Manual) Metamyelocytes % Abs Neuts (Manual) Lymphocytes # (Manual) Monocytes # (Manual) Metamyelocytes # Nucleated RBCs Toxic Granulation Toxic Vacuolation Dohle Bodies Platelet Estimate Large Platelets Giant Platelets Plt Morphology Comment RBC Morphology Microcytosis Target Cells Ovalocytes [place] Cells Schistocytes Smear Path Review PT INR VBG pH VBG pCO2 VBG pO2 VBG HCO3 VBG O2 Saturation VBG Base Excess Sodium Potassium Chloride Carbon Dioxide Anion Gap BUN Creatinine Estim Creat Clear Calc Estimated GFR POC Glucose 113 Random Glucose Calcium Phosphorus Magnesium Total Bilirubin AST ALT Alkaline Phosphatase Total Protein Albumin Blood Type Antibody Screen Crossmatch Microbiology Microbiology Results: Microbiology 06/14/24 11:05 Blood - Venous Blood Culture - Preliminary No growth after 24 hours. 06/14/24 11:03 Blood - Venous Blood Culture - Preliminary No growth after 24 hours. 06/14/24 Unknown Urine Catheterized - Burger Catheter Urine Culture - Preliminary Culture in progress. Progress Note: A&P Assessment and plan (1) Coagulopathy: Status: Acute (2) Left hemiparesis: Status: Acute (3) Pulmonary aspiration: Status: Acute (4) Acute respiratory failure with hypoxia: Status: Acute (5) Schizophrenia: Status: Acute (6) Type 2 diabetes mellitus: Status: Acute (7) CKD (chronic kidney disease): Status: Acute Plan Assessment: 73-year-old gentleman with underlying schizophrenia, dementia, left hemiparesis post CVA admitted with alteration of mental status and hypoxia requiring intubation and ventilatory support Plan: Neuro: Alteration of mental status, likely encephalopathy on the background of dementia, schizophrenia, and lack of decision-making capacity with court- appointed guardian Cardiac: Septic shock, continue to titrate off pressor support as tolerated. Underlying AFib on Eliquis (held) and chronic diastolic congestive heart failure. Pulmonary: Acute respiratory failure with hypoxia likely secondary to pulmonary aspiration now requiring ventilatory support, continue to titrate off as tolerated. Renal: Acute on chronic renal failure, likely secondary to urinary tract infection. Non oliguric. Continue to monitor renal indices and urine output. No evidence of hydronephrosis. Endo: No acute issues. GI: Constipation, improved with enema. ID: Septic shock with likely source. Cultures are pending. Continue broad- spectrum antibiotic coverage. Heme/Onc: Coagulopathy with acute blood loss anemia status post 1 unit of packed red blood cells, likely secondary to nutritional deficiencies and septic shock vitamin K administered, improving. Continue to monitor to blood cell counts. Psych: No acute issues. Miscellaneous: No acute issues. Prophylaxis: Pneumatic compression, famotidine Diet: NPO Critical care time spent: 60 minutes Quality Stroke Does the patient have a stroke diagnosis?: No VTE Prior VTE?: No VTE Risk Level:: Medical - moderate - high VTE Device Contraindication: Treatment Not Indicated VTE Drug Contraindication: N/A - Med Ordered
[2024-06-16 12:10] LABS: Glucose, Whole Blood 122 mg/dL (60-115)
--- NOTE | 2024-06-16 14:06 | MHC.CM.PN ---
Pt extubated and on n/c O2. Call placed to guardian/HCP/Dtr Bonny to update her on pt's status and d/c plan. Pt is a LTC bed hold at [facility] and will return when stable via BLS.
--- NOTE | 2024-06-16 15:19 | HO.WOUND ---
Wound Consult: Follow up 73yr old?male admitted to [facility] on 06/14/24 - See progress notes and H&P for detailed history.? Wound consult follow up for sacrum and left foot wounds POA.? 06/14/24 06/16/24 Sacrum - Deep Tissue Injury in Evolution ?Present on Admission Wound Bed: dark pigmented tissue lifting in some areas - macerated edges and pink moist central wound bed Drainage / Odor:small amount of yellow drainage Edges: Irregular ? Goals of Treatment: Triad and foam dressing to allow for autolytic healing and protect from 06/14/24 06/16/24 Left Foot / Toes Deep Tissue Injury in Evolution ?Present on Admission Wound Bed: dark pigmented dry tissue Drainage / Odor: None Edges: Irregular ? Goals of Treatment: [place] with betadine to dry and provide antimicrobial environment No new topical recommendations needed at this time. Isotour LULY mattress in use, Wedges and heel protector boots in use. Recommendations: 1. Turn and Reposition every 2 hours and as needed for patient comfort.? Use pillows or wedges to support off loading positions. 2. Off Load all bony prominences with use of pillows and heel boots if needed.? Apply Preventative foams where needed. ? 3. Monitor for incontinence and moisture control, use barrier creams when needed for prevention and treatment. 4. Provide adequate and supplemental nutrition.? 5. Order or Continue low air loss mattress. 6. When applicable maintain blood glucose levels per Providers order. 7. Sacrum - Off Load Pressure? - Cleanse with PH balance spray or wipes, pat dry. ?Apply thin layer of Triad to wound bed. Do not remove all of paste between applications as this may cause further skin damage.? Cover with foam dressing to aid in off loading and protection from friction. Change every other day and PRN. 8. Left Foot / Toe - [place] with Betadine and cover with dry gauze dressing, Daily. Re-consult wound care Nurse for wound deterioration or wound changes.
[2024-06-16 17:46] LABS: Glucose, Whole Blood 116 mg/dL (60-115)
--- NOTE | 2024-06-16 17:46 | PC.NURSE ---
Assumed care of patient 0700 Pt had 3 dark brown / silva red stools this shift, MD aware 08:20 Sedation vacation started per MD. Propofol gtt paused. 09:05 PSV trail started PSV 12/5.0 30% 10:00 PSV 8/5.0 30%. Pt maintaining volumes 350-400 ml 11:50 Pt extubated per MD. RN and RT at bedside. Pt transitioned to 2L NC 13:00 pt required nasopharyngeal suctioning to clear airway. Pt coughed once to mobilize large amount of thick ramirez secretions. 17: 00 Pt provided bed bath, pt passed a bowel movement, turned and repositioned. Pt desaturated to SaO2 85%. Pt required hyperoxygenation as well as nasopharyngeal suctioning after turning. high fall precautions in place, aspiration precautions in place
[2024-06-16] MEDS: Furosemide 40 MG/4 ML VIAL IVPUSH (19:42)
[2024-06-16 19:45] LABS: MANUAL DIFF FLAG NO
[2024-06-16 19:49] LABS: Basophils Percent Auto 0.2 % (0-2); Hematocrit 23.4 % (42.0-52.0); Hemoglobin 7.9 g/dl (14.0-18.0); Imm Gran Pct Auto 1.6 % (0.0-0.4); Lymphocytes Absolute Auto 1.9 X10*3/uL (1.2-4.9); Lymphocytes Percent Auto 14.9 % (20-40); Mean Corpuscular HGB Conc 33.8 g/dl (31.0-36.0); Mean Corpuscular Hemoglobin 27.2 pg (27.0-33.0); Mean Corpuscular Volume 80.7 fL (80.0-98.0); Mean Platelet Volume 10.4 fL (9.4-12.4); Monocytes Absolute Auto 0.7 X10*3/uL (0.1-1.2); Monocytes Percent Auto 5.6 % (2-11); NRBC Pct Auto 0.8 /100WBC (0.0-0.2); Neutrophils Absolute Auto 9.7 x10*3/uL (2.0-8.3); Neutrophils Percent Auto 77.7 % (45-73); Platelet Count 107 X10*3/uL (160-400); Red Cell Distribution Width 18.2 % (11.0-16.0); White Blood Count 12.4 X10*3/uL (4.8-10.8)
[2024-06-16 19:51] LABS: Venous Blood Gas Refer to POC result
[2024-06-16 19:51] LABS: VBG Base Excess 0.7 mmol/L; VBG HCO3 23 mmol/L (22-26); VBG pCO2 30 mmHg; VBG pH 7.49 (7.32-7.43); VBG pO2 91 mmHg
[2024-06-16 20:14] LABS: Anion Gap 17 (12-20); Blood Urea Nitrogen 74 mg/dL (9-16); Calcium 10.8 mg/dL (8.4-10.2); Carbon Dioxide 23 mmol/L (22-29); Chloride 112 mmol/L (96-108); Estimated Glomerular Filt Rate 20; Glucose Random 121 mg/dL (60-115); Magnesium 2.3 mg/dL (1.6-2.6); Phosphorus 4.6 mg/dL (2.7-4.5); Potassium 3.9 mmol/L (3.3-5.1); Sodium 148 mmol/L (135-145)
[2024-06-16 23:51] LABS: Glucose, Whole Blood 111 mg/dL (60-115)
[2024-06-17] VITALS (24 sets, daily range): BP systolic 103–131; BP diastolic 43–64; PULSE 59–77; RESP 17–28; TEMP 36–37.5; O2SAT 88–96; BMI 25.7
[2024-06-17] MEDS: levETIRAcetam in NaCl (iso-os) 1,000 MG/100 ML PIGGYBACK 400 MG IV ×2 (01:13→13:16)
[2024-06-17 05:11] LABS: VBG Base Excess 1.3 mmol/L; VBG HCO3 25 mmol/L (22-26); VBG pCO2 39 mmHg; VBG pH 7.41 (7.32-7.43); VBG pO2 52 mmHg
[2024-06-17] MEDS: Pantoprazole Sodium 40 MG/10 ML VIAL IVPUSH ×2 (05:28→16:45)
[2024-06-17 05:44] LABS: MANUAL DIFF FLAG NO; Venous Blood Gas Refer to POC result
[2024-06-17 05:46] LABS: Basophils Percent Auto 0.2 % (0-2); Eosinophils Percent Auto 0.1 % (0-4); Hemoglobin 8.3 g/dl (14.0-18.0); Imm Gran Abs Auto 0.22 X10*3/uL (0.00-0.03); Imm Gran Pct Auto 1.8 % (0.0-0.4); Lymphocytes Absolute Auto 2.3 X10*3/uL (1.2-4.9); Lymphocytes Percent Auto 18.3 % (20-40); Mean Corpuscular HGB Conc 33.2 g/dl (31.0-36.0); Mean Corpuscular Hemoglobin 27.1 pg (27.0-33.0); Mean Corpuscular Volume 81.7 fL (80.0-98.0); Mean Platelet Volume 10.4 fL (9.4-12.4); Monocytes Absolute Auto 0.9 X10*3/uL (0.1-1.2); Monocytes Percent Auto 6.8 % (2-11); NRBC Pct Auto 0.7 /100WBC (0.0-0.2); Neutrophils Absolute Auto 9.1 x10*3/uL (2.0-8.3); Neutrophils Percent Auto 72.8 % (45-73); Platelet Count 112 X10*3/uL (160-400); Red Blood Count 3.06 X10*6/uL (4.60-5.80); Red Cell Distribution Width 18.1 % (11.0-16.0); White Blood Count 12.6 X10*3/uL (4.8-10.8)
[2024-06-17 05:54] LABS: Glucose, Whole Blood 87 mg/dL (60-115)
[2024-06-17 06:04] LABS: Albumin Level 4.2 g/dL (3.5-5.0); Anion Gap 20 (12-20); Blood Urea Nitrogen 85 mg/dL (9-16); Calcium 10.5 mg/dL (8.4-10.2); Carbon Dioxide 23 mmol/L (22-29); Chloride 111 mmol/L (96-108); Creatinine Clr Calc Pharmacy 18.6; Estimated Glomerular Filt Rate 17; Glucose Random 96 mg/dL (60-115); Magnesium 2.3 mg/dL (1.6-2.6); Phosphorus 4.8 mg/dL (2.7-4.5); Potassium 3.9 mmol/L (3.3-5.1); Sodium 150 mmol/L (135-145)
--- NOTE | 2024-06-17 10:34 | MHC.CLN ---
PT REQUIRES PPN FOR NUTRITION SUPPORT R/T PROLONGED NPO STATUS IN ADDITION, PT WITH INCREASED NUTRITION RISK R/T PRESSURE INJURIES REMAINS NPO DISCUSSED AT ROUNDS WITH MD DISCUSSED WITH PHARMACY REVIEWED LABS RECOMMEND 06/17/24 PPN AT 60ML/HR TO PROVIDE 734KCALS, 61G PROTEIN, 144G DEXTROSE REPLETE LYTES NEEDED PLAN FOR 06/18/24 CHECK TRIGS RECOMMEND INCREASING PPN TO 80ML/HR TO PROVIDE 979KCALS, 82G PROTEIN, 192G DEXTROSE REPLETE LYTES NEEDED PLANS FOR 06/19/24 IF TRIGS ARE WNL RECOMMEND INCREASING PPN TO MAX GOAL RATE 100ML/HR WITH 88G LIPIDS TO PROVIDE 2104 TOTAL KCALS (26KCALS/KG), 102G PROTEIN (1.2G/KG), 240G DEXTROSE REPLETE LYTES NEEDED RD CAN BE REACHED VIA TIGER CONNECT DURING OFF HOURS IF NEEDED
[2024-06-17] MEDS: Chlorhexidine Gluc Oral Rinse 15 ML MOUTHWASH BUCCAL ×2 (10:51→14:29)
[2024-06-17] MEDS: 0.9 % Sodium Chloride Flush 3 ML SYRINGE IVFLUSH ×2 (10:51→16:45)
--- NOTE | 2024-06-17 11:11 | P.PNCC_ITS ---
Subjective Subjective Date of Service: 06/17/24 Interval History: 73-year-old gentleman with underlying history of diabetes mellitus chronic kidney disease, paroxysmal AFib on Eliquis, diastolic heart failure, dementia, pontine CVA with residual left hemiparesis, schizophrenia admitted on 06/14/[facility] where he resides with worsening confusion. On ER evaluation patient hypotensive and hypoxic requiring intubation for airway protection and pressor support. Started on empiric antibiotics and admitted to the intensive care unit. Extubated 06/16/2024. No events overnight. Critical Care Time (minutes): 0 Physical Exam 2 Vital Signs: Vital Signs: Last Vital Signs Temp 99.0 F 06/17/24 08:00 Pulse 61 06/17/24 11:00 Resp 19 06/17/24 11:00 BP 109/47 L 06/17/24 11:00 Pulse Ox 95 06/17/24 11:00 O2 Del Method Nasal Cannula 06/17/24 11:00 O2 Flow Rate 4 06/17/24 11:00 FiO2 30 06/16/24 12:00 BMI result Body Mass Index 25.7 Const: General: no acute distress and lethargic (Arousable, follows some commands) Orientation/consciousness: lethargic (Arousable, follows some commands) Eyes: Sclerae: sclerae normal EOM: EOMs intact bilaterally Neck: Neck: Yes no lymphadenopathy, Yes trachea midline and Yes supple Resp: Effort & Inspection: normal respiratory effort and no respiratory distress Auscultation: clear to auscultation bilaterally Cardio: Rate: regular rate Rhythm: regular rhythm Heart sounds: no gallops, no murmurs and no rubs GI: Palpation (GI): Soft to palpation and Other GI palpation findings present ( Nontender) Auscultation: normal bowel sounds Extrem: General: No clubbing, No cyanosis and Yes edema (Trace bilateral) Objective Data Labs 06/17/24 05:01 06/17/24 05:01 Labs: Laboratory Results - last 24 hr 06/16/24 06/16/24 06/16/24 12:06 17:42 19:40 WBC 12.4 H RBC 2.90 L Hgb 7.9 L Hct 23.4 L MCV 80.7 MCH 27.2 MCHC 33.8 RDW 18.2 H Plt Count 107 L MPV 10.4 Immature Gran % (Auto) 1.6 H Neut % (Auto) 77.7 H Lymph % (Auto) 14.9 L [place] % (Auto) 5.6 Eos % (Auto) 0.0 Baso % (Auto) 0.2 Lymph # (Auto) 1.9 [place] # (Auto) 0.7 Eos # (Auto) 0.0 Baso # (Auto) 0.0 Abs Immat Gran (auto) 0.20 H Absolute Neuts (auto) 9.7 H Absolute Nucleated RBC 0.100 H Nucleated RBC % (auto) 0.8 H VBG pH VBG pCO2 VBG pO2 VBG HCO3 VBG O2 Saturation VBG Base Excess Sodium 148 H Potassium 3.9 Chloride 112 H Carbon Dioxide 23 Anion Gap 17 BUN 74 H Creatinine 3.13 H Estim Creat Clear Calc 21.0 Estimated GFR 20 POC Glucose 122 H 116 H Random Glucose 121 H Calcium 10.8 H Phosphorus 4.6 H Magnesium 2.3 Albumin 06/16/24 06/16/24 06/17/24 19:47 23:48 05:01 WBC 12.6 H RBC 3.06 L Hgb 8.3 L Hct 25.0 L MCV 81.7 MCH 27.1 MCHC 33.2 RDW 18.1 H Plt Count 112 L MPV 10.4 Immature Gran % (Auto) 1.8 H Neut % (Auto) 72.8 Lymph % (Auto) 18.3 L [place] % (Auto) 6.8 Eos % (Auto) 0.1 Baso % (Auto) 0.2 Lymph # (Auto) 2.3 [place] # (Auto) 0.9 Eos # (Auto) 0.0 Baso # (Auto) 0.0 Abs Immat Gran (auto) 0.22 H Absolute Neuts (auto) 9.1 H Absolute Nucleated RBC 0.090 H Nucleated RBC % (auto) 0.7 H VBG pH 7.49 H 7.41 VBG pCO2 30 39 VBG pO2 91 52 VBG HCO3 23 25 VBG O2 Saturation 99.0 81.0 VBG Base Excess 0.7 1.3 Sodium 150 H Potassium 3.9 Chloride 111 H Carbon Dioxide 23 Anion Gap 20 BUN 85 H Creatinine 3.53 H Estim Creat Clear Calc 18.6 Estimated GFR 17 POC Glucose 111 Random Glucose 96 Calcium 10.5 H Phosphorus 4.8 H Magnesium 2.3 Albumin 4.2 06/17/24 05:50 WBC RBC Hgb Hct MCV MCH MCHC RDW Plt Count MPV Immature Gran % (Auto) Neut % (Auto) Lymph % (Auto) [place] % (Auto) Eos % (Auto) Baso % (Auto) Lymph # (Auto) [place] # (Auto) Eos # (Auto) Baso # (Auto) Abs Immat Gran (auto) Absolute Neuts (auto) Absolute Nucleated RBC Nucleated RBC % (auto) VBG pH VBG pCO2 VBG pO2 VBG HCO3 VBG O2 Saturation VBG Base Excess Sodium Potassium Chloride Carbon Dioxide Anion Gap BUN Creatinine Estim Creat Clear Calc Estimated GFR POC Glucose 87 Random Glucose Calcium Phosphorus Magnesium Albumin Microbiology Microbiology Results: Microbiology 06/14/24 Unknown Urine Catheterized - Burger Catheter Urine Culture - Preliminary Klebsiella pneumoniae Proteus mirabilis 06/14/24 11:05 Blood - Venous Blood Culture - Preliminary No growth after 48 hours. 06/14/24 11:03 Blood - Venous Blood Culture - Preliminary No growth after 48 hours. Progress Note: A&P Assessment and plan (1) Urinary tract infection: Status: Acute (2) Pulmonary aspiration: Status: Acute (3) Coagulopathy: Status: Acute (4) Type 2 diabetes mellitus: Status: Acute (5) Schizophrenia: Status: Acute (6) CKD (chronic kidney disease): Status: Acute Plan Assessment: 73-year-old gentleman with underlying schizophrenia, dementia, left hemiparesis post CVA admitted with alteration of mental status and hypoxia requiring intubation and ventilatory support Plan: Neuro: Alteration of mental status, likely septic encephalopathy on the background of dementia, schizophrenia, and lack of decision-making capacity with court-appointed guardian. Cardiac: Septic shock, continue to titrate off pressor support as tolerated. Underlying AFib on Eliquis (held) and chronic diastolic congestive heart failure. Pulmonary: Acute respiratory failure with hypoxia likely secondary to pulmonary aspiration now requiring ventilatory support, extubated 06/16/2024. Remains high-risk for aspiration. Continue to titrate off supplemental oxygen as tolerated. Renal: Acute on chronic renal failure, likely secondary to urinary tract infection. Non oliguric. Continue to monitor renal indices and urine output. No evidence of hydronephrosis. Endo: No acute issues. GI: Constipation, improved with enema. Unable to participate with swallow evaluation at this time, if mental status will not improve, may require further goals of care discussion. ID: [id number] Gram-negative UTI antibiotics switched to meropenem. Heme/Onc: Coagulopathy with acute blood loss anemia status post 1 unit of packed red blood cells, likely secondary to nutritional deficiencies and septic shock vitamin K administered, improving. Continue to monitor to blood cell counts. Psych: No acute issues. Miscellaneous: No acute issues. Prophylaxis: Pneumatic compression, famotidine Diet: PPN Quality Stroke Does the patient have a stroke diagnosis?: No VTE Prior VTE?: No VTE Risk Level:: Medical - moderate - high VTE Device Contraindication: Treatment Not Indicated VTE Drug Contraindication: N/A - Med Ordered
--- NOTE | 2024-06-17 11:33 | P.CDIM_ITS ---
PROVIDER RESPONSE TEXT: To clarify, the appropriate diagnosis supported by the clinical indicators: Yes the UTI is related to / associated with / due to the chronic indwelling coker catheter QUERY TEXT: PHYSICIAN'S DOCUMENTATION REQUEST Date of Query: 06/17/2024 10:05 AM EDT Patient Name: Aristeo Garrett Admit Date: 06/14/2024 Dear Lupillo Contreras MD, A review of the medical record indicates additional documentation may be needed. Please review below and update the documentation accordingly. Clinical Indicators: UTI Urine micro results - gram neg nova Broad spectrum antibiotics Patient has a chronic indwelling coker catheter. Please clarify the relationship between these conditions: Yes the UTI is related to / associated with / due to the chronic indwelling coker catheter No the UTI is not related to / associated with / due to the chronic indwelling coker catheter Other (explain) Clinically unable to determine (explain) Thank you, Debbie Fnag, CCS, CDIS Use of terms such as suspected, likely, concern for, or probable (associated with a specific diagnosi s that is being evaluated, monitored, or treated as if it exists) are acceptable and can be coded in the inpatient se tting, when documented at the time of discharge. Please use your independent medical judgment in providing your response. THIS QUERY IS PART OF THE PERMANENT MEDICAL RECORD
[2024-06-17 12:03] LABS: Glucose, Whole Blood 78 mg/dL (60-115)
--- NOTE | 2024-06-17 12:40 | MHC.CM.PN ---
EMR REVIEWED AND PER MD ROUNDS, PT REMAINS IN ICU LEVEL OF CARE. +ESBL UTI. [facility]PD[facility]IA [facility]. CM WILL CONTINUE TO FOLLOW FOR ANY CHANGES TO DC NEEDS.
[2024-06-17 18:00] LABS: Glucose, Whole Blood 81 mg/dL (60-115)
[2024-06-17] MEDS: Parenteral Nutrition 1,440 ML 60 ML IV (20:52)
[2024-06-17 20:53] LABS: Alanine Aminotransferase 20 U/L (0-40); Albumin Level 4.1 g/dL (3.5-5.0); Alkaline Phosphatase 177 U/L (39-117); Anion Gap 21 (12-20); Aspartate Amino Transferase 17 U/L (5-37); Bilirubin Total 0.7 mg/dL (0.0-1.0); Blood Urea Nitrogen 102 mg/dL (9-16); Calcium 10.6 mg/dL (8.4-10.2); Carbon Dioxide 23 mmol/L (22-29); Chloride 113 mmol/L (96-108); Creatinine Clr Calc Pharmacy 17.5; Estimated Glomerular Filt Rate 16; Glucose Random 85 mg/dL (60-115); Magnesium 2.4 mg/dL (1.6-2.6); Phosphorus 5.3 mg/dL (2.7-4.5); Sodium 153 mmol/L (135-145); Total Protein 7.6 g/dL (6.5-8.0)
[2024-06-17] MEDS: Dextrose 5 % 1,000 ML 100 ML IVCONT (23:06)
[2024-06-17 23:17] LABS: Glucose, Whole Blood 144 mg/dL (60-115)
[2024-06-18] VITALS (19 sets, daily range): BP systolic 114–127; BP diastolic 47–94; PULSE 57–78; RESP 14–28; TEMP 36.7–37.3; O2SAT 87–94; BMI 23.9
[2024-06-18] MEDS: levETIRAcetam in NaCl (iso-os) 1,000 MG/100 ML PIGGYBACK 400 MG IV (00:58)
[2024-06-18 05:25] LABS: MANUAL DIFF FLAG NO
[2024-06-18 05:27] LABS: Venous Blood Gas Refer to POC result
[2024-06-18 05:30] LABS: Basophils Percent Auto 0.1 % (0-2); Eosinophils Absolute Auto 0.1 X10*3/uL (0.0-0.4); Eosinophils Percent Auto 0.4 % (0-4); Hematocrit 24.1 % (42.0-52.0); Hemoglobin 8.1 g/dl (14.0-18.0); Imm Gran Abs Auto 0.32 X10*3/uL (0.00-0.03); Imm Gran Pct Auto 2.8 % (0.0-0.4); Lymphocytes Absolute Auto 2.5 X10*3/uL (1.2-4.9); Lymphocytes Percent Auto 21.5 % (20-40); Mean Corpuscular HGB Conc 33.6 g/dl (31.0-36.0); Mean Corpuscular Hemoglobin 27.4 pg (27.0-33.0); Mean Corpuscular Volume 81.4 fL (80.0-98.0); Mean Platelet Volume 9.5 fL (9.4-12.4); Monocytes Percent Auto 8.3 % (2-11); NRBC Pct Auto 0.5 /100WBC (0.0-0.2); Neutrophils Absolute Auto 7.6 x10*3/uL (2.0-8.3); Neutrophils Percent Auto 66.9 % (45-73); Red Blood Count 2.96 X10*6/uL (4.60-5.80); Red Cell Distribution Width 17.9 % (11.0-16.0); White Blood Count 11.4 X10*3/uL (4.8-10.8)
[2024-06-18 05:31] LABS: VBG Base Excess 1.8 mmol/L; VBG HCO3 26 mmol/L (22-26); VBG pCO2 41 mmHg; VBG pH 7.41 (7.32-7.43); VBG pO2 76 mmHg
[2024-06-18 05:31] LABS: Platelet Count 99 X10*3/uL (160-400)
[2024-06-18 05:55] LABS: Albumin Level 3.9 g/dL (3.5-5.0); Anion Gap 19 (12-20); Blood Urea Nitrogen 113 mg/dL (9-16); Carbon Dioxide 24 mmol/L (22-29); Chloride 110 mmol/L (96-108); Estimated Glomerular Filt Rate 15; Glucose Random 230 mg/dL (60-115); Magnesium 2.4 mg/dL (1.6-2.6); Phosphorus 4.5 mg/dL (2.7-4.5); Potassium 3.8 mmol/L (3.3-5.1); Sodium 149 mmol/L (135-145)
[2024-06-18] MEDS: Insulin Lispro 100 UNIT/ML 3 ML VIAL SUBCUT ×2 (06:09→12:16)
[2024-06-18] MEDS: Pantoprazole Sodium 40 MG/10 ML VIAL IVPUSH (06:09)
[2024-06-18] MEDS: 0.9 % Sodium Chloride Flush 3 ML SYRINGE IVFLUSH ×2 (07:49→18:13)
[2024-06-18] MEDS: Chlorhexidine Gluc Oral Rinse 15 ML MOUTHWASH BUCCAL ×3 (07:50→21:41)
--- NOTE | 2024-06-18 08:02 | PC.RT ---
Pt noted congested bilat, No spont cough noted and spo2 85%. Pt noted to have nasal trumpet in p-lace L side. Sxn for copious thick wte sec. Spo2 91% at this time, nurse aware.
[2024-06-18 12:09] LABS: Glucose, Whole Blood 193 mg/dL (60-115)
--- NOTE | 2024-06-18 12:09 | P.PNCC_ITS ---
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 On ER evaluation patient hypotensive and hypoxic requiring intubation for airway protection and pressor support. Started on empiric antibiotics and admitted to the intensive care unit. Extubated 06/16/2024. No events overnight. Renal function slowly declining. Critical Care Time (minutes): 0 Physical Exam 2 Vital Signs: Vital Signs: Last Vital Signs Temp 99.0 F 06/18/24 10:54 Pulse 66 06/18/24 10:54 Resp 19 06/18/24 10:54 BP 116/51 L 06/18/24 10:54 Pulse Ox 93 06/18/24 10:54 O2 Del Method Nasal Cannula 06/18/24 10:54 O2 Flow Rate 2 06/18/24 10:54 FiO2 30 06/16/24 12:00 BMI result Body Mass Index 23.9 Const: General: no acute distress and lethargic (Poorly arousable, follows some commands) Orientation/consciousness: lethargic (Poorly arousable, follows some commands) Eyes: Sclerae: sclerae normal EOM: EOMs intact bilaterally Neck: Neck: Yes no lymphadenopathy, Yes trachea midline and Yes supple Resp: Effort & Inspection: normal respiratory effort and no respiratory distress Auscultation: clear to auscultation bilaterally Cardio: Rate: regular rate Rhythm: regular rhythm Heart sounds: no gallops, no murmurs and no rubs GI: Palpation (GI): Soft to palpation and Other GI palpation findings present ( Nontender) Auscultation: normal bowel sounds Extrem: General: Yes no pedal edema (Trace bilateral), No clubbing and No cyanosis Objective Data Labs 06/18/24 05:19 06/18/24 05:19 Labs: Laboratory Results - last 24 hr 06/17/24 06/17/24 06/17/24 17:56 20:01 23:14 WBC RBC Hgb Hct MCV MCH MCHC RDW Plt Count MPV Immature Gran % (Auto) Neut % (Auto) Lymph % (Auto) [place] % (Auto) Eos % (Auto) Baso % (Auto) Lymph # (Auto) [place] # (Auto) Eos # (Auto) Baso # (Auto) Abs Immat Gran (auto) Absolute Neuts (auto) Absolute Nucleated RBC Nucleated RBC % (auto) VBG pH VBG pCO2 VBG pO2 VBG HCO3 VBG O2 Saturation VBG Base Excess Sodium 153 H Potassium 4.0 Chloride 113 H Carbon Dioxide 23 Anion Gap 21 H BUN 102 H Creatinine 3.76 H Estim Creat Clear Calc 17.5 Estimated GFR 16 POC Glucose 81 144 H Random Glucose 85 Calcium 10.6 H Phosphorus 5.3 H Magnesium 2.4 Total Bilirubin 0.7 AST 17 ALT 20 Alkaline Phosphatase 177 H Total Protein 7.6 Albumin 4.1 06/18/24 06/18/24 05:19 05:24 WBC 11.4 H RBC 2.96 L Hgb 8.1 L Hct 24.1 L MCV 81.4 MCH 27.4 MCHC 33.6 RDW 17.9 H Plt Count 99 L MPV 9.5 Immature Gran % (Auto) 2.8 H Neut % (Auto) 66.9 Lymph % (Auto) 21.5 [place] % (Auto) 8.3 Eos % (Auto) 0.4 Baso % (Auto) 0.1 Lymph # (Auto) 2.5 [place] # (Auto) 1.0 Eos # (Auto) 0.1 Baso # (Auto) 0.0 Abs Immat Gran (auto) 0.32 H Absolute Neuts (auto) 7.6 Absolute Nucleated RBC 0.060 H Nucleated RBC % (auto) 0.5 H VBG pH 7.41 VBG pCO2 41 VBG pO2 76 VBG HCO3 26 VBG O2 Saturation 95.0 VBG Base Excess 1.8 Sodium 149 H Potassium 3.8 Chloride 110 H Carbon Dioxide 24 Anion Gap 19 BUN 113 H Creatinine 3.86 H Estim Creat Clear Calc 17.0 Estimated GFR 15 POC Glucose Random Glucose 230 H Calcium 10.0 Phosphorus 4.5 Magnesium 2.4 Total Bilirubin AST ALT Alkaline Phosphatase Total Protein Albumin 3.9 Microbiology Microbiology Results: Microbiology 06/14/24 Unknown Urine Catheterized - Burger Catheter Urine Culture - Final Klebsiella pneumoniae Proteus mirabilis 06/14/24 11:05 Blood - Venous Blood Culture - Preliminary No growth after 48 hours. 06/14/24 11:03 Blood - Venous Blood Culture - Preliminary No growth after 48 hours. Progress Note: A&P Assessment and plan (1) Schizophrenia: Status: Acute (2) Dementia: Status: Acute (3) Left hemiparesis: Status: Acute (4) Urinary tract infection: Status: Acute (5) Acute renal failure superimposed on chronic kidney disease: Status: Acute Plan Assessment: 73-year-old gentleman with underlying schizophrenia, dementia, left hemiparesis post CVA admitted with alteration of mental status and hypoxia requiring intubation and ventilatory support Plan: Neuro: Alteration of mental status, likely septic encephalopathy on the background of dementia, schizophrenia, and lack of decision-making capacity with court-appointed guardian. Cardiac: Septic shock, resolved. Underlying AFib on Eliquis (held) and chronic diastolic congestive heart failure. Pulmonary: Acute respiratory failure with hypoxia likely secondary to pulmonary aspiration now requiring ventilatory support, extubated 06/16/2024. Remains high-risk for aspiration. Continue to titrate off supplemental oxygen as tolerated. Renal: Acute on chronic renal failure, likely secondary to urinary tract infection. Non oliguric. Continue to monitor renal indices and urine output. No evidence of hydronephrosis. Nephrology consultation requested. May require hemodialysis. Endo: No acute issues. GI: Constipation, improved with enema. Unable to participate with swallow evaluation at this time, if mental status will not improve, may require further goals of care discussion. ID: [id number] Gram-negative UTI, continue meropenem. Heme/Onc: Coagulopathy with acute blood loss anemia status post 1 unit of packed red blood cells, likely secondary to nutritional deficiencies and septic shock vitamin K administered. Continue to monitor to blood cell counts. Psych: No acute issues. Miscellaneous: No acute issues. Prophylaxis: Pneumatic compression, famotidine Diet: PPN Quality Stroke Does the patient have a stroke diagnosis?: No VTE Prior VTE?: No VTE Risk Level:: Medical - moderate - high VTE Device Contraindication: Treatment Not Indicated VTE Drug Contraindication: N/A - Med Ordered
[2024-06-18] MEDS: levETIRAcetam in NaCl (iso-os) 500 MG/100 ML PIGGYBACK 400 MG IV (12:16)
[2024-06-18 12:55] LABS: Triglycerides 194 mg/dL (<150)
--- NOTE | 2024-06-18 14:03 | PM.EVENT ---
Event Note Date of Service: 06/18/24 Event Note: pt seen and examined, chart reviewed, med rec reviewd, complicated patient admitted through ICU with ecephalopathy, hypotension, hypoxic needing intubation and vasopressor support. Presently NPO, so oral meds on hold, however on iv keppra for seuzure prevention, IV levothyroxine. is on TPN should be adjusted for high sodium. On Meropenem for UTI Time Spent With Patient Time: Total time managing care of this patient today ____ minutes.
[2024-06-18] MEDS: Levothyroxine Sodium 100 MCG/5 ML VIAL 50 MCG IVPUSH (14:34)
--- NOTE | 2024-06-18 15:29 | MHC.CM.PN ---
Addendum entered by Elda Castellanos 06/20/24 08:48: NOTED ENTERED IN ERROR- 06/20/2024. DISREGARD. 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 She is independent with all functional mobility. She is in ICU on BIBAP support. She has agreed to document a HCP. A copy has been scanned into EMR. DP TBD by patients recovery. She will likely discharge to home self care. A family member will provide transportation home.
[2024-06-18 18:12] LABS: Glucose, Whole Blood 123 mg/dL (60-115)
[2024-06-18] MEDS: Parenteral Nutrition 1,920 ML 80 ML IV (21:29)
[2024-06-19] VITALS (7 sets, daily range): BP systolic 128–143; BP diastolic 60–65; PULSE 56–68; RESP 16–22; TEMP 36–36.5; O2SAT 91–97
--- NOTE | 2024-06-19 00:32 | PC.NURSE ---
Handoff report received from TRANSCRIPTION MANAGER at 23:00. Handoff report given to oncoming RN at 23:15. Patient transported from ICU to s4 in stable condition by contract technical writer and nursing animal humane agent supervisor at midnight. Pt alert, looking around spontaneously, non-verbal as per report. Pt transferred to new bed on arrival to floor and placed on tele monitor. Vitals obtained, stable. Nasal trumpet replaced (previously in left nare, now in right) and pt suctioned for thick creamy white sputum for upper airway rhonchi with +effect. HOB min 30 degrees. Bed alarm on and safety measures in place. Primary RN Tammi made aware of patient arrival and contract technical writer interventions provided.
[2024-06-19 01:09] LABS: Glucose, Whole Blood 261 mg/dL (60-115)
[2024-06-19] MEDS: levETIRAcetam in NaCl (iso-os) 500 MG/100 ML PIGGYBACK 400 MG IV ×2 (01:23→13:30)
[2024-06-19] MEDS: 0.9 % Sodium Chloride Flush 3 ML SYRINGE IVFLUSH ×4 (01:24→23:18)
[2024-06-19] MEDS: Insulin Lispro 100 UNIT/ML 3 ML VIAL SUBCUT ×4 (01:32→18:09)
[2024-06-19] MEDS: Levothyroxine Sodium 100 MCG/5 ML VIAL 50 MCG IVPUSH (06:05)
[2024-06-19 06:25] LABS: Hematocrit 24.3 % (42.0-52.0); Hemoglobin 7.9 g/dl (14.0-18.0); Mean Corpuscular HGB Conc 32.5 g/dl (31.0-36.0); Mean Corpuscular Hemoglobin 27.1 pg (27.0-33.0); Mean Corpuscular Volume 83.5 fL (80.0-98.0); Mean Platelet Volume 10.6 fL (9.4-12.4); NRBC Pct Auto 0.4 /100WBC (0.0-0.2); Platelet Count 108 X10*3/uL (160-400); Red Blood Count 2.91 X10*6/uL (4.60-5.80); Red Cell Distribution Width 17.6 % (11.0-16.0); White Blood Count 12.5 X10*3/uL (4.8-10.8)
[2024-06-19 06:33] LABS: Glucose, Whole Blood 231 mg/dL (60-115)
[2024-06-19 06:35] LABS: VBG Base Excess 1.2 mmol/L; VBG HCO3 26 mmol/L (22-26); VBG pCO2 42 mmHg; VBG pH 7.39 (7.32-7.43); VBG pO2 45 mmHg
[2024-06-19 06:35] LABS: Venous Blood Gas Refer to POC result
[2024-06-19 07:14] LABS: Albumin Level 3.8 g/dL (3.5-5.0); Anion Gap 17 (12-20); Blood Urea Nitrogen 117 mg/dL (9-16); Calcium 9.7 mg/dL (8.4-10.2); Carbon Dioxide 23 mmol/L (22-29); Chloride 111 mmol/L (96-108); Creatinine Clr Calc Pharmacy 18.7; Estimated Glomerular Filt Rate 17; Glucose Random 256 mg/dL (60-115); Magnesium 2.6 mg/dL (1.6-2.6); Potassium 3.9 mmol/L (3.3-5.1); Sodium 147 mmol/L (135-145)
[2024-06-19 07:59] LABS: Glucose, Whole Blood 223 mg/dL (60-115)
[2024-06-19] MEDS: Chlorhexidine Gluc Oral Rinse 15 ML MOUTHWASH BUCCAL ×3 (09:32→20:54)
--- NOTE | 2024-06-19 10:46 | MHC.SL.SWA ---
Speech Pathologist Impression: Risk of Aspiration Due to: History of Pneumonia Hx of Recent Extubation Dysphasia Diet Status: Liquid Consistency and Strategies for Safe Swallow: Liquid Intake Recommendation: Thin Liquid Intake Strategies: Small Sips No Straws Solid Food Consistency: Dietary Recommendations: Pureed (NDD1) Additional Modifications to Solid Foods: Patient requires a one to one feed. Assure that patient has swallowed previous presentation of food before presenting more/patient may need occasional cue to swallow. Liquids by controlled cup sip, no straws. Blend sauces and gravies into sticky purees. Oral Medication Intake: Crushed with Puree Please contact the pharmacy regarding appropriate crushable or liquid drug formulations that are available whenever modified delivery is recommended. Compensatory Strategies and Precautions to be Taken for Safe Swallow: Sitting Upright (90 deg) No Straw Liquids from Cup Small Bites and Sips Alternate Liquids/Solids Oral Check Supervision While Eating and Drinking for Safe Swallow: Total Assistance (1:1) Foods to Avoid: Mixed consistencies Swallowing Recommended Treatments: Compens. Strategy Educat. Recommendation for Speech: Inpatient Speech Therapy Comment: Patient presents with a mild to moderate oral pharyngeal dysphagia, with mild delay initiating swallow and occasional oral delay/pocketing of food. Recommend START diet of PUREE (NDD1) with THIN liquids, pills crushed in puree (per [facility] notes, this is patient's baseline). Patient will require 1-1 feeding, periodic cuing/oral checks to assure swallow. Liquids by controlled cup sip only, no straws. MD/RD notified of recommendation by secure text, RN in person. MEAT SALES AND STORAGE MANAGER will continue to follow. Frequency/Duration: Date Range for Service Req: Timeline to reassess: Guest Room Attendant Clinican/Clinical Fellow: No Supervisory Statement: I have reviewed and agree with the student/clinical fellow's documentation: N/A Speech Language Pathologist: Mraly Billings M.A., CCC-MEAT SALES AND STORAGE MANAGER
[2024-06-19 11:49] LABS: Glucose, Whole Blood 201 mg/dL (60-115)
[2024-06-19 16:16] LABS: Glucose, Whole Blood 245 mg/dL (60-115)
[2024-06-19 17:29] LABS: Glucose, Whole Blood 223 mg/dL (60-115)
[2024-06-19] MEDS: Parenteral Nutrition 1,920 ML 100 ML IV (20:59)
--- NOTE | 2024-06-19 21:12 | PM.EVENT ---
Event Note Date of Service: 06/19/24 Event Note: 73 yr old man with PELON And hypernatremia Renal fx is improving Keep I > O With hypotonic fluids Full consult to follow Time Spent With Patient Time: Total time managing care of this patient today ____ minutes.
--- NOTE | 2024-06-19 21:43 | HO.PM.IMPN ---
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 On ER evaluation patient hypotensive and hypoxic requiring intubation for airway protection and pressor support. Started on empiric antibiotics and admitted to the intensive care unit. Extubated 06/16/2024. fairly sedated on this day, no communicatvve Physical Exam Vital Signs: Vital Signs: vitals reviewed Const: Other: General: alert but somnolent Resp: ernesto rhonchi CVS: S1,S2,RRR GI: +BS, NT, no distention Skin: No rash Neuro: motor grossly intact Psych: appropriate affect Objective Data Active Medications Atorvastatin Calcium (Atorvastatin Calcium 20 Mg Tablet) 20 mg PO DAILY STEPHANIE Bisacodyl (Bisacodyl 10 Mg Supp.Rect) 10 mg [place] DAILY PRN PRN Reason: Costipation/If MoM not effective. Chlorhexidine Gluconate (Chlorhexidine Gluc Oral Rinse 15 Ml Mouthwash) 15 ml BUCCAL TID [facility] Last Admin: 06/20/24 20:35 Dose: 15 ml Documented By: DEION Finasteride (Finasteride 5 Mg Tablet) 5 mg PO DAILY [facility] Folic Acid (Folic Acid 1 Mg Tablet) 1 mg PO DAILY [facility] Meropenem 500 mg/ Sodium (Chloride) 50 mls @ 200 mls/hr IV Q12H [facility] Last Admin: 06/20/24 21:07 Dose: 200 mls/hr Documented By: DEION Levetiracetam (Keppra) 500 mg in 100 mls @ 400 mls/hr IV Q12H [facility] Last Infusion: 06/20/24 16:14 Dose: Infused Documented By: DIANNA Insulin Glargine (Insulin Glargine,Hum.Rec.Anlog 100 Unit/Ml 10 Ml Vial) 12 unit SUBCUT DAILY [facility] Last Admin: 06/20/24 06:33 Dose: 12 unit Documented By: DEION Insulin Human Lispro (Insulin Lispro 100 Unit/Ml 3 Ml Vial) 0 unit SUBCUT Q6H [facility]; Protocol Last Admin: 06/20/24 15:21 Dose: 2 unit Documented By: DIANNA Levothyroxine Sodium (Levothyroxine Sodium 100 Mcg/5 Ml Vial) 50 mcg IVPUSH DAILY@0600 [facility] Last Admin: 06/20/24 05:07 Dose: 50 mcg Documented By: DEION Multivitamins/Vitamin C (Multivitamin Tablet) 1 tab PO DAILY [facility] Non-Formulary Medication (Pantoprazole) 40 mg PO DAILY@0630 [facility] Pharmacy Consult (Consult Rx Parenteral Nutrition Ordering) 1 each MISCELLANE DAILY PRN PRN Reason: Consult order Sodium Chloride (0.9 % Sodium Chloride Flush 3 Ml Syringe) 3 ml IVFLUSH QSHIFT [facility] Last Admin: 06/20/24 15:22 Dose: 3 ml Documented By: DIANNA Sucralfate (Sucralfate 1 Gm Tablet) 1 gm PO TID [facility] Vitamin D (Cholecalciferol (Vitamin D3) 25 Mcg Tablet) 50 mcg PO DAILY [facility] Labs 06/20/24 06:42 06/20/24 06:42 Labs: Laboratory Results - last 24 hr 06/19/24 06/20/24 06/20/24 23:54 06:03 06:05 MCV MCH MCHC RDW Plt Count MPV Absolute Nucleated RBC Nucleated RBC % (auto) Anion Gap Estim Creat Clear Calc Estimated GFR POC Glucose 309 H 411 H* 395 H* Random Glucose Calcium Phosphorus Magnesium Albumin 06/20/24 06/20/24 06/20/24 06:42 08:10 10:45 MCV 83.9 MCH 28.8 MCHC 34.3 RDW 17.8 H Plt Count 143 L D MPV 11.2 Absolute Nucleated RBC 0.040 H Nucleated RBC % (auto) 0.4 H Anion Gap 17 Estim Creat Clear Calc 21.8 Estimated GFR 20 POC Glucose 360 H* 206 H Random Glucose 451 H* Calcium 9.3 Phosphorus 2.0 L Magnesium 2.5 Albumin 3.7 06/20/24 06/20/24 15:14 20:43 MCV MCH MCHC RDW Plt Count MPV Absolute Nucleated RBC Nucleated RBC % (auto) Anion Gap Estim Creat Clear Calc Estimated GFR POC Glucose 156 H 194 H Random Glucose Calcium Phosphorus Magnesium Albumin Assessment and Plan (1) Acute renal failure superimposed on chronic kidney disease: Status: Acute (2) Dementia: Status: Acute (3) Blood loss anemia: Status: Acute (4) Coagulopathy: Status: Acute (5) Left hemiparesis: Status: Acute Plan 73-year-old gentleman with underlying schizophrenia, dementia, left hemiparesis post CVA admitted with alteration of mental status and hypoxia requiring intubation and ventilatory support and vasopressor use Alteration of mental status/metabolic encephalopath d/t sepsis with underlying schizophrenia, dementia and and lack of decision-making capacity and has court appointment guardian Sepsis d/t Klebsiela ESBL and Proteus, spsis resolved -continue meropenem -Blood cultures have been negative Septic shock--required vasopressors but resolved. Acute hypoxic respiratory failure related to aspiration pneumnia that required vent support, succesfully extubated on 06/16, respiratory status has improved. -continue Abx as above. -wean off O2 H/o chronic AFIB--previously on Eliquis but has been on hold d/t significant anemia that required transfusion . rate is controlled, not on rate control meds Chronic diastolic heart failure--compensated PELON on CKD 4,improved Creatine within baseline Diabetes--lantus and SSI Chronic constipation--bowel regimen PRN Acute blood loss anemia, coagulopathy treated with Vit k, transfused 1 unit of RBC, elquis has been on hold. H/H has been stable, + occult blood, consider gi input before restarting eliquis HypoT--IV levothyroxine, once taking oral consistantly change to PO Seizure d/o, continue Keppra Schizophrenia--patient on multiple meds including monthly haldol, risperidal, congentin--he has been fairly sedated and therefore these meds have been on hold, reintroduce if becoming agitated HTN--imdur and Norvasc on hold, BP ok HLD--restart lipitor when eating Diabetes--Lantus and SSI. 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
[2024-06-20 00:06] LABS: Glucose, Whole Blood 309 mg/dL (60-115)
[2024-06-20] MEDS: levETIRAcetam in NaCl (iso-os) 500 MG/100 ML PIGGYBACK 400 MG IV ×3 (01:08→23:41)
[2024-06-20] MEDS: Insulin Lispro 100 UNIT/ML 3 ML VIAL SUBCUT ×4 (01:09→23:40)
[2024-06-20 03:05] VITALS: BP 144/66; PULSE 71; RESP 18; TEMP 36; O2SAT 99
[2024-06-20] MEDS: Levothyroxine Sodium 100 MCG/5 ML VIAL 50 MCG IVPUSH (05:07)
[2024-06-20 06:08] LABS: Glucose, Whole Blood 411 mg/dL (60-115)
[2024-06-20 06:08] LABS: Glucose, Whole Blood 395 mg/dL (60-115)
[2024-06-20] MEDS: Insulin Glargine,Hum.rec.anlog 100 UNIT/ML 10 ML VIAL 12 UNIT SUBCUT (06:33)
[2024-06-20 07:08] LABS: Hemoglobin 7.9 g/dl (14.0-18.0); Mean Corpuscular HGB Conc 34.3 g/dl (31.0-36.0); Mean Corpuscular Hemoglobin 28.8 pg (27.0-33.0); Mean Corpuscular Volume 83.9 fL (80.0-98.0); Mean Platelet Volume 11.2 fL (9.4-12.4); NRBC Pct Auto 0.4 /100WBC (0.0-0.2); Platelet Count 143 X10*3/uL (160-400); Red Blood Count 2.74 X10*6/uL (4.60-5.80); Red Cell Distribution Width 17.8 % (11.0-16.0); White Blood Count 11.3 X10*3/uL (4.8-10.8)
[2024-06-20 07:25] VITALS: BP 133/62; PULSE 65; RESP 20; TEMP 36.8; O2SAT 98
[2024-06-20 07:31] LABS: Albumin Level 3.7 g/dL (3.5-5.0); Anion Gap 17 (12-20); Calcium 9.3 mg/dL (8.4-10.2); Carbon Dioxide 23 mmol/L (22-29); Chloride 108 mmol/L (96-108); Creatinine Clr Calc Pharmacy 21.8; Estimated Glomerular Filt Rate 20; Magnesium 2.5 mg/dL (1.6-2.6); Potassium 4.5 mmol/L (3.3-5.1); Sodium 143 mmol/L (135-145)
[2024-06-20 07:37] LABS: Blood Urea Nitrogen 120 mg/dL (9-16); Glucose Random 451 mg/dL (60-115)
[2024-06-20 08:14] LABS: Glucose, Whole Blood 360 mg/dL (60-115)
[2024-06-20] MEDS: 0.9 % Sodium Chloride Flush 3 ML SYRINGE IVFLUSH ×3 (09:41→23:31)
[2024-06-20] MEDS: Chlorhexidine Gluc Oral Rinse 15 ML MOUTHWASH BUCCAL ×3 (09:50→20:35)
[2024-06-20 10:50] LABS: Glucose, Whole Blood 206 mg/dL (60-115)
--- NOTE | 2024-06-20 11:16 | MHC.SL.SWA ---
Speech Pathologist Impression: Risk of aspiration, Mild to Moderate Oropharyngeal Dysphagia Risk of Aspiration Due to: History of Pneumonia Hx of Recent Extubation Dysphasia Diet Status: No Change Liquid Consistency and Strategies for Safe Swallow: Liquid Intake Recommendation: Thin Liquid Intake Strategies: Small Sips No Straws Solid Food Consistency: Dietary Recommendations: Pureed (NDD1) Additional Modifications to Solid Foods: Patient presents with a mild to moderate oral pharyngeal dysphagia, with mild delay initiating swallow and occasional oral delay/pocketing of food. Recommend CONTINUE present diet of PUREE (NDD1) with THIN liquids, pills crushed in puree (per [facility] notes, this is patient's baseline). Patient will require 1-1 feeding, periodic cuing/oral checks to assure swallow. Liquids by controlled cup sip only, no straws. SCORER HELPER will continue to follow. Oral Medication Intake: Crushed with Puree Please contact the pharmacy regarding appropriate crushable or liquid drug formulations that are available whenever modified delivery is recommended. Compensatory Strategies and Precautions to be Taken for Safe Swallow: Sitting Upright (90 deg) No Straw Liquids from Cup Small Bites and Sips Alternate Liquids/Solids Rate of Ingestion Change Oral Check Avoid Specific Foods Supervision While Eating and Drinking for Safe Swallow: Total Assistance (1:1) Foods to Avoid: Mixed consistencies Swallowing Recommended Treatments: Compens. Strategy Educat. Recommendation for Speech: Inpatient Speech Therapy Balancer Clinican/Clinical Fellow: No Supervisory Statement: I have reviewed and agree with the student/clinical fellow's documentation: N/A Speech Language Pathologist: Alfreda Desai M.A., [facility]-[employer] HEL[facility]
[2024-06-20 11:18] VITALS: BP 131/60; PULSE 62; RESP 20; TEMP 36.4; O2SAT 96
--- NOTE | 2024-06-20 11:51 | MHC.CLN ---
F/U PT TRANSFERRED TO MEDICAL FLOOR PT WITH INCREASED NUTRITION RISK R/T PRESSURE INJURIES PPN TO D/C TODAY DIET ADVANCED TO 1800DM PUREED-RECOMMEND D/C DM RESTRICTIONS TO OFFER INCREASED VARIETY AND PROMOTE WOUND HEALING PO INTAKE 50% X1 MEAL RECOMMEND ADDING ENSURE MAX BID TO FURTHER PROMOTE WOUND HEALING SUPPLEMENT TO PROVIDE 300KCALS, 60G PROTEIN MONITOR PO INTAKE AND ENCOURAGE SUPPLEMENT
--- NOTE | 2024-06-20 14:56 | MHC.CM.PN ---
EMR reviewed and per MD rounds, pt is not edically cleared for discharge today.
[2024-06-20 15:19] LABS: Glucose, Whole Blood 156 mg/dL (60-115)
[2024-06-20 16:00] VITALS: BP 133/64; PULSE 62; RESP 12; TEMP 35.7; O2SAT 97
[2024-06-20 20:00] VITALS: BP 143/67; PULSE 65; RESP 20; TEMP 36; O2SAT 96
[2024-06-20 20:54] LABS: Glucose, Whole Blood 194 mg/dL (60-115)
--- NOTE | 2024-06-20 21:10 | HO.PM.IMPN ---
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 On ER evaluation patient hypotensive and hypoxic requiring intubation for airway protection and pressor support. Started on empiric antibiotics and admitted to the intensive care unit. Extubated 06/16/2024. He remained confused and sedated post ICU care but becomiing more and awake Physical Exam Vital Signs: Vital Signs: Last Vital Signs Temp 96.8 F 06/20/24 20:00 Pulse 65 06/20/24 20:00 Resp 20 06/20/24 20:00 BP 143/67 H 06/20/24 20:00 Pulse Ox 96 06/20/24 20:00 O2 Del Method Nasal Cannula 06/20/24 20:00 O2 Flow Rate 2 06/20/24 20:00 FiO2 30 06/16/24 12:00 BMI result Body Mass Index 23.9 Const: Other: General: Alert but non communicative, Resp: ernesto rhonchi CVS: S1,S2,RRR GI: +BS, NT, no distention Skin: No rash Neuro: motor grossly intact Psych: appropriate affect Objective Data Active Medications Chlorhexidine Gluconate (Chlorhexidine Gluc Oral Rinse 15 Ml Mouthwash) 15 ml BUCCAL TID [facility] Last Admin: 06/20/24 20:35 Dose: 15 ml Documented By: DEION Meropenem 500 mg/ Sodium (Chloride) 50 mls @ 200 mls/hr IV Q12H [facility] Last Infusion: 06/20/24 10:03 Dose: Infused Documented By: DIANNA Levetiracetam (Keppra) 500 mg in 100 mls @ 400 mls/hr IV Q12H [facility] Last Infusion: 06/20/24 16:14 Dose: Infused Documented By: DIANNA Insulin Glargine (Insulin Glargine,Hum.Rec.Anlog 100 Unit/Ml 10 Ml Vial) 12 unit SUBCUT DAILY [facility] Last Admin: 06/20/24 06:33 Dose: 12 unit Documented By: HO.N-OWUSD Insulin Human Lispro (Insulin Lispro 100 Unit/Ml 3 Ml Vial) 0 unit SUBCUT Q6H [facility]; Protocol Last Admin: 06/20/24 15:21 Dose: 2 unit Documented By: DIANNA Levothyroxine Sodium (Levothyroxine Sodium 100 Mcg/5 Ml Vial) 50 mcg IVPUSH DAILY@0600 [facility] Last Admin: 06/20/24 05:07 Dose: 50 mcg Documented By: DEION Pharmacy Consult (Consult Rx Parenteral Nutrition Ordering) 1 each MISCELLANE DAILY PRN PRN Reason: Consult order Sodium Chloride (0.9 % Sodium Chloride Flush 3 Ml Syringe) 3 ml IVFLUSH QSHIFT [facility] Last Admin: 06/20/24 15:22 Dose: 3 ml Documented By: DIANNA Labs 06/20/24 06:42 06/20/24 06:42 Labs: Laboratory Results - last 24 hr 06/19/24 06/20/24 06/20/24 23:54 06:03 06:05 MCV MCH MCHC RDW Plt Count MPV Absolute Nucleated RBC Nucleated RBC % (auto) Anion Gap Estim Creat Clear Calc Estimated GFR POC Glucose 309 H 411 H* 395 H* Random Glucose Calcium Phosphorus Magnesium Albumin 06/20/24 06/20/24 06/20/24 06:42 08:10 10:45 MCV 83.9 MCH 28.8 MCHC 34.3 RDW 17.8 H Plt Count 143 L D MPV 11.2 Absolute Nucleated RBC 0.040 H Nucleated RBC % (auto) 0.4 H Anion Gap 17 Estim Creat Clear Calc 21.8 Estimated GFR 20 POC Glucose 360 H* 206 H Random Glucose 451 H* Calcium 9.3 Phosphorus 2.0 L Magnesium 2.5 Albumin 3.7 06/20/24 06/20/24 15:14 20:43 MCV MCH MCHC RDW Plt Count MPV Absolute Nucleated RBC Nucleated RBC % (auto) Anion Gap Estim Creat Clear Calc Estimated GFR POC Glucose 156 H 194 H Random Glucose Calcium Phosphorus Magnesium Albumin Assessment and Plan (1) Acute renal failure superimposed on chronic kidney disease: Status: Acute (2) Dementia: Status: Acute (3) Blood loss anemia: Status: Acute (4) Coagulopathy: Status: Acute (5) Left hemiparesis: Status: Acute Plan 73-year-old gentleman with underlying schizophrenia, dementia, left hemiparesis post CVA admitted with alteration of mental status and hypoxia requiring intubation and ventilatory support and vasopressor use Alteration of mental status/metabolic encephalopath d/t sepsis with underlying schizophrenia, dementia and and lack of decision-making capacity and has court appointment guardian Sepsis d/t Klebsiela ESBL and Proteus, spsis resolved -continue meropenem -Blood cultures have been negative Septic shock--required vasopressors but resolved. Acute hypoxic respiratory failure related to aspiration pneumnia that required vent support, succesfully extubated on 06/16, respiratory status has improved. -continue Abx as above. -wean off O2 H/o chronic AFIB--previously on Eliquis but has been on hold d/t significant anemia that required transfusion . rate is controlled, not on rate control meds Chronic diastolic heart failure--compensated PELON on CKD 4,improved Creatine within baseline Diabetes--with hyperglycemia today d/t TPN, off TNP, blood sugar down. -continue Lantus and SSI Chronic constipation--lactulose PRN, enema PRN Acute blood loss anemia, coagulopathy treated with Vit k, transfused 1 unit of RBC, elquis has been on hold. H/H has been stable, + occult blood, consider gi input before restarting eliquis HypoT--IV levothyroxine, once taking oral consistantly change to PO Seizure d/o Keppra, change to PO tomorrow Schizophrenia--patient on multiple meds including monthly haldol, risperidal, congentin--he has been fairly sedated and therefore these meds have been on hold, reintroduce if becoming agitated HTN--imdur and Norvasc on hold, BP ok HLD--Lipitor Diabetes--Lantus and SSI. Monitor sugars FEN--patient was not very responsive and has been on TPN BUFFER NICKEL rec Puree NDD1 and thin liquid TPN stopped today Full code Need for inpatient : recovering from sepsis, encephalopathy, UTI, aspiration PNA Prophylaxis: Pneumatic compression, famotidine Quality Stroke Does the patient have a stroke diagnosis?: No VTE Prior VTE?: No VTE Risk Level:: Medical - moderate - high VTE Device Contraindication: Treatment Not Indicated VTE Drug Contraindication: N/A - Med Ordered
--- NOTE | 2024-06-20 21:42 | PM.CNNEP ---
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 Review of Systems Review of Systems Yes Unobtainable due to mental condition [facility] Past Medical History Medical History (Updated 06/18/24 @ 12:19 by Lupillo Contreras MD) Type 2 diabetes mellitus Hypertensive cardiovascular-renal disease Hypothermia Schizophrenia BPH (benign prostatic hyperplasia) Stage 3b chronic kidney disease (CKD) Left hemiparesis Right pontine CVA Hypertension Recurrent UTI Dysphagia Dementia Chronic diastolic heart failure Paroxysmal A-fib Diabetes mellitus type 2 in obese Social History Social History Household Members: Unknown / Unable to assess Housing: [facility] Unable to assess alcohol history related to: Unable to respond Patient Tobacco Use Status: Tobacco use Unknown Substance Use Type: Unknown Meds Allergies Allergy/AdvReac Type Severity Reaction Status Date / Time No Known Allergies Allergy Verified 07/10/23 03:39 Active Medications: Current Medications Atorvastatin Calcium (Atorvastatin Calcium 20 Mg Tablet) 20 mg PO DAILY STEPHANIE Bisacodyl (Bisacodyl 10 Mg Supp.Rect) 10 mg [place] DAILY PRN PRN Reason: Costipation/If MoM not effective. Chlorhexidine Gluconate (Chlorhexidine Gluc Oral Rinse 15 Ml Mouthwash) 15 ml BUCCAL TID [facility]PLACED BY [facility] Last Admin: 06/20/24 20:35 Dose: 15 ml Finasteride (Finasteride 5 Mg Tablet) 5 mg PO DAILY [facility] Folic Acid (Folic Acid 1 Mg Tablet) 1 mg PO DAILY [facility] Meropenem 500 mg/ Sodium (Chloride) 50 mls @ 200 mls/hr IV Q12H [facility] Last Admin: 06/20/24 21:07 Dose: 200 mls/hr Levetiracetam (Keppra) 500 mg in 100 mls @ 400 mls/hr IV Q12H [facility]PL[facility] Last Infusion: 06/20/24 16:14 Dose: Infused Insulin Glargine (Insulin Glargine,Hum.Rec.Anlog 100 Unit/Ml 10 Ml Vial) 12 unit SUBCUT DAILY [facility] Last Admin: 06/20/24 06:33 Dose: 12 unit Insulin Human Lispro (Insulin Lispro 100 Unit/Ml 3 Ml Vial) 0 unit SUBCUT Q6H [facility]; Protocol Last Admin: 06/20/24 15:21 Dose: 2 unit Levothyroxine Sodium (Levothyroxine Sodium 100 Mcg/5 Ml Vial) 50 mcg IVPUSH DAILY@0600 [facility] Last Admin: 06/20/24 05:07 Dose: 50 mcg Multivitamins/Vitamin C (Multivitamin Tablet) 1 tab PO DAILY [facility] Non-Formulary Medication (Pantoprazole) 40 mg PO DAILY@0630 [facility]PL[facility] Pharmacy Consult (Consult Rx Parenteral Nutrition Ordering) 1 each MISCELLANE DAILY PRN PRN Reason: Consult order Sodium Chloride (0.9 % Sodium Chloride Flush 3 Ml Syringe) 3 ml IVFLUSH QSHIFT REPLACED BY [facility] Last Admin: 06/20/24 15:22 Dose: 3 ml Sucralfate (Sucralfate 1 Gm Tablet) 1 gm PO TID [facility]PLACED BY [facility] Vitamin D (Cholecalciferol (Vitamin D3) 25 Mcg Tablet) 50 mcg PO DAILY [facility]PL[facility] Home Medications ?Medication ?Instructions ?Recorded ?Confirmed ?Last Taken ?Type apixaban 5 mg tablet (Eliquis) 5 mg PO BID 07/10/23 06/14/24 Unknown History atorvastatin 20 mg tablet 20 mg PO DAILY 07/10/23 06/14/24 Unknown History cholecalciferol (vitamin D3) 50 50 mcg PO DAILY 07/10/23 06/14/24 Unknown History mcg (2,000 unit) tablet finasteride 5 mg tablet 5 mg PO DAILY 07/10/23 06/14/24 Unknown History folic acid 1 mg tablet 1 mg PO DAILY 07/10/23 06/14/24 Unknown History haloperidol decanoate 50 mg/mL 50 mg IM Q4W 07/10/23 06/14/24 Unknown History intramuscular solution multivitamin 1 tab PO DAILY 07/10/23 06/14/24 Unknown History risperidone 2 mg tablet 2 mg PO BID 07/10/23 06/14/24 Unknown History sucralfate 1 gram tablet (Carafate) 1 g PO TID 07/10/23 06/14/24 Unknown History amlodipine 10 mg tablet 10 mg PO DAILY 07/23/23 06/14/24 Unknown History levetiracetam 100 mg/mL oral 250 mg PO BID 07/23/23 06/14/24 Unknown History solution Glucose Gel 77.4% 1 appl PO Q15M PRN HYPOGLYCEMIA, 06/14/24 06/14/24 Unknown History BS <60 acetaminophen 325 mg tablet 650 mg PO Q6H PRN General 06/14/24 06/14/24 Unknown History Discomfort/Temp Over 101 acetaminophen 650 mg rectal 650 mg WI Q6H PRN General 06/14/24 06/14/24 Unknown History suppository Discomfort/Temp Over 101 benztropine 1 mg tablet 1 mg PO BID 06/14/24 06/14/24 Unknown History bisacodyl 10 mg rectal suppository 10 mg WI DAILY PRN Costipation/If 06/14/24 06/14/24 Unknown History MoM not effective. glucagon 1 mg/0.2 mL subcutaneous 1 mg subcut Q15M PRN blood Sugar 06/14/24 06/14/24 Unknown History solution (Gvoke) insulin glargine 100 unit/mL 6 unit subcut DAILY 06/14/24 06/14/24 Unknown History subcutaneous solution (Lantus U-100 Insulin) insulin lispro 100 unit/mL 1 sliding scale dose subcut 06/14/24 06/14/24 Unknown History subcutaneous solution (Humalog USEASDIRECTD U-100 Insulin) isosorbide mononitrate 30 mg 30 mg PO DAILY 06/14/24 06/14/24 Unknown History tablet,extended release 24 hr lactulose 10 gram/15 mL (15 mL) 45 ml PO DAILY 06/14/24 06/14/24 Unknown History oral solution lanolin alcohols-mineral 1 appl topical TID XEROSIS CUTIS 06/14/24 06/14/24 Unknown History oil-w.petrolatum-ceresin topical cream (Minerin Creme topical) levothyroxine 100 mcg tablet 100 mcg PO DAILY@0600 06/14/24 06/14/24 Unknown History pantoprazole 40 mg tablet,delayed 40 mg PO DAILY@0630 06/14/24 06/14/24 Unknown History release thiamine HCl (vitamin B1) 100 mg 100 mg PO DAILY 06/14/24 06/14/24 Unknown History tablet Physical Exam Vital Signs: Last Vital Signs Temp 96.8 F 06/20/24 20:00 Pulse 65 06/20/24 20:00 Resp 20 06/20/24 20:00 BP 143/67 H 06/20/24 20:00 Pulse Ox 96 06/20/24 20:00 O2 Del Method Nasal Cannula 06/20/24 20:00 O2 Flow Rate 2 06/20/24 20:00 FiO2 30 06/16/24 12:00 BMI result Body Mass Index 23.9 Const Other: General: Alert but non communicative, Resp: ernesto rhonchi CVS: S1,S2,RRR GI: +BS, NT, no distention Skin: No rash Neuro: motor grossly intact Psych: appropriate affect Results Lab Results 06/21/24 07:16 06/21/24 07:16 Lab results: Chemistry 06/18/24 06/19/24 06/20/24 05:19 06:13 06:42 Sodium 149 H 147 H 143 Potassium 3.8 3.9 4.5 Carbon Dioxide 24 23 23 BUN 113 H 117 H 120 H Creatinine 3.86 H 3.52 H 3.01 H Calcium 10.0 9.7 9.3 Phosphorus 4.5 3.0 2.0 L Hematology 06/18/24 06/19/24 06/20/24 05:19 06:13 06:42 WBC 11.4 H 12.5 H 11.3 H Hgb 8.1 L 7.9 L 7.9 L Plt Count 99 L 108 L 143 L D Assessment and Plan (1) Acute renal failure superimposed on chronic kidney disease: Status: Acute (2) Dementia: Status: Acute Plan PELON onCKD Disproportioante increase in BUN Non oliguria Severe Anemia Hypernatremia Renal function is improving Keep I > O with hypotonic fluids Na is better Supportive care Avoid nephrotoxins Expect recovery No indication for diaysis Procedures Date of Service Date of Service: 06/21/24
[2024-06-20 23:23] VITALS: BP 132/63; PULSE 56; RESP 20; TEMP 36.7; O2SAT 98
[2024-06-20 23:42] LABS: Glucose, Whole Blood 286 mg/dL (60-115)
[2024-06-21 03:22] VITALS: BP 132/63; PULSE 55; RESP 18; TEMP 36.4; O2SAT 97
[2024-06-21 05:14] LABS: Glucose, Whole Blood 178 mg/dL (60-115)
[2024-06-21] MEDS: Levothyroxine Sodium 100 MCG/5 ML VIAL 50 MCG IVPUSH (05:16)
[2024-06-21] MEDS: Insulin Lispro 100 UNIT/ML 3 ML VIAL SUBCUT ×2 (05:16→17:41)
[2024-06-21] MEDS: Omeprazole 20 MG CAPSULE.DR PO (05:47)
[2024-06-21 07:34] VITALS: BP 132/62; PULSE 54; RESP 16; TEMP 36.2; O2SAT 99
[2024-06-21 08:22] LABS: Hemoglobin 7.5 g/dl (14.0-18.0); Mean Corpuscular HGB Conc 31.3 g/dl (31.0-36.0); Mean Corpuscular Hemoglobin 26.8 pg (27.0-33.0); Mean Corpuscular Volume 85.7 fL (80.0-98.0); Mean Platelet Volume 11.1 fL (9.4-12.4); NRBC Pct Auto 0.2 /100WBC (0.0-0.2); Platelet Count 178 X10*3/uL (160-400); Red Cell Distribution Width 17.9 % (11.0-16.0); White Blood Count 10.8 X10*3/uL (4.8-10.8)
[2024-06-21 08:43] LABS: Anion Gap 15 (12-20); Carbon Dioxide 23 mmol/L (22-29); Chloride 116 mmol/L (96-108); Magnesium 2.7 mg/dL (1.6-2.6); Potassium 4.6 mmol/L (3.3-5.1); Sodium 149 mmol/L (135-145)
[2024-06-21 08:44] LABS: Albumin Level 3.5 g/dL (3.5-5.0); Calcium 9.7 mg/dL (8.4-10.2); Creatinine Clr Calc Pharmacy 23.2; Estimated Glomerular Filt Rate 22; Glucose Random 131 mg/dL (60-115); Phosphorus 3.2 mg/dL (2.7-4.5)
[2024-06-21 09:08] LABS: Blood Urea Nitrogen 119 mg/dL (9-16)
[2024-06-21] MEDS: Sucralfate 1 GM TABLET PO ×3 (09:17→20:21)
[2024-06-21] MEDS: Finasteride 5 MG TABLET PO (09:17)
[2024-06-21] MEDS: Chlorhexidine Gluc Oral Rinse 15 ML MOUTHWASH BUCCAL ×3 (09:17→20:21)
[2024-06-21] MEDS: Atorvastatin Calcium 20 MG TABLET PO (09:17)
[2024-06-21] MEDS: Folic Acid 1 MG TABLET PO (09:17)
[2024-06-21] MEDS: Levothyroxine Sodium 100 MCG TABLET PO (09:17)
[2024-06-21] MEDS: Cholecalciferol (Vitamin D3) 25 MCG TABLET 50 MCG PO (09:17)
[2024-06-21] MEDS: Multivitamin TABLET 1 TAB PO (09:17)
[2024-06-21] MEDS: 0.9 % Sodium Chloride Flush 3 ML SYRINGE IVFLUSH ×3 (09:18→23:13)
[2024-06-21] MEDS: Insulin Glargine,Hum.rec.anlog 100 UNIT/ML 10 ML VIAL 12 UNIT SUBCUT (09:18)
--- NOTE | 2024-06-21 11:25 | PM.GICN ---
History of Present Illness Data of Consult Service Date: 06/21/24 Requesting physician: [facility] Primary Care Provider: [facility] Reason for consult: anemia 73-year-old gentleman with hx of diabetes mellitus, chronic kidney disease, paroxysmal AFib on Eliquis, diastolic heart failure, dementia, pontine CVA with residual left hemiparesis, and schizophrenia who I am seeing for assessment for anemia. No history from patient due to dementia Patient was initially admitted 06/14/24 with increased confusion. He was found to be hypotensive with hypoxia requiring intubation for airway protection and pressor support. He had aspiration pneumonia with pos urine culture for proteus and klebsiella but neg blood cultures. Eventually he was extubated 06/16/24. He was on eliquis for a fib but this was held due to drifting HGB< from baseline of 8 g/dl to 7 g/dl. Per chart review and nursing he has had no overt signs of GI bleeding, no melena, no rectal bleeding. He required 1 unit of PRBC and his HGB has been stable last several readings at around 7-8 g/dl range. Review of Systems Review of Systems: Yes Unobtainable due to mental condition [facility] Past Medical History Medical History (Updated 06/18/24 @ 12:19 by Lupillo Contreras MD) Type 2 diabetes mellitus Hypertensive cardiovascular-renal disease Hypothermia Schizophrenia BPH (benign prostatic hyperplasia) Stage 3b chronic kidney disease (CKD) Left hemiparesis Right pontine CVA Hypertension Recurrent UTI Dysphagia Dementia Chronic diastolic heart failure Paroxysmal A-fib Diabetes mellitus type 2 in obese Family History Pertinent family history: unable to obtain Social History Social History Household Members: Unknown / Unable to assess Housing: Longterm Unable to assess alcohol history related to: Unable to respond Patient Tobacco Use Status: Tobacco use Unknown Substance Use Type: Unknown Meds Allergies Allergy/AdvReac Type Severity Reaction Status Date / Time No Known Allergies Allergy Verified 07/10/23 03:39 Active Medications: Current Medications Atorvastatin Calcium (Atorvastatin Calcium 20 Mg Tablet) 20 mg PO DAILY STEPHANIE Last Admin: 06/21/24 09:17 Dose: 20 mg Bisacodyl (Bisacodyl 10 Mg Supp.Rect) 10 mg [place] DAILY PRN PRN Reason: Costipation/If MoM not effective. Chlorhexidine Gluconate (Chlorhexidine Gluc Oral Rinse 15 Ml Mouthwash) 15 ml BUCCAL TID [facility] Last Admin: 06/21/24 09:17 Dose: 15 ml Finasteride (Finasteride 5 Mg Tablet) 5 mg PO DAILY [facility] Last Admin: 06/21/24 09:17 Dose: 5 mg Folic Acid (Folic Acid 1 Mg Tablet) 1 mg PO DAILY [facility] Last Admin: 06/21/24 09:17 Dose: 1 mg Meropenem 500 mg/ Sodium (Chloride) 50 mls @ 200 mls/hr IV Q12H [facility] Last Infusion: 06/20/24 21:22 Dose: Infused Levetiracetam (Keppra) 500 mg in 100 mls @ 400 mls/hr IV Q12H [facility] Last Infusion: 06/20/24 23:56 Dose: Infused Dextrose (D5w) 1,000 mls @ 60 mls/hr IVCONT .[id number] [facility] Insulin Glargine (Insulin Glargine,Hum.Rec.Anlog 100 Unit/Ml 10 Ml Vial) 12 unit SUBCUT DAILY [facility] Last Admin: 06/21/24 09:18 Dose: 12 unit Insulin Human Lispro (Insulin Lispro 100 Unit/Ml 3 Ml Vial) 0 unit SUBCUT Q6H [facility]; Protocol Last Admin: 06/21/24 05:16 Dose: 4 unit Levothyroxine Sodium (Levothyroxine Sodium 100 Mcg Tablet) 100 mcg PO DAILY@0600 [facility] Last Admin: 06/21/24 09:17 Dose: 100 mcg Multivitamins/Vitamin C (Multivitamin Tablet) 1 tab PO DAILY [facility] Last Admin: 06/21/24 09:17 Dose: 1 tab Omeprazole (Omeprazole 20 Mg Capsule.Dr) 20 mg PO DAILY@0630 [facility] Last Admin: 06/21/24 05:47 Dose: 20 mg Pharmacy Consult (Consult Rx Parenteral Nutrition Ordering) 1 each MISCELLANE DAILY PRN PRN Reason: Consult order Sodium Chloride (0.9 % Sodium Chloride Flush 3 Ml Syringe) 3 ml IVFLUSH QSHIFT [facility] Last Admin: 06/21/24 09:18 Dose: 3 ml Sucralfate (Sucralfate 1 Gm Tablet) 1 gm PO TID [facility] Last Admin: 06/21/24 09:17 Dose: 1 gm Vitamin D (Cholecalciferol (Vitamin D3) 25 Mcg Tablet) 50 mcg PO DAILY STEPHANIE Last Admin: 06/21/24 09:17 Dose: 50 mcg Home Medications ?Medication ?Instructions ?Recorded ?Confirmed ?Last Taken ?Type apixaban 5 mg tablet (Eliquis) 5 mg PO BID 07/10/23 06/14/24 Unknown History atorvastatin 20 mg tablet 20 mg PO DAILY 07/10/23 06/14/24 Unknown History cholecalciferol (vitamin D3) 50 50 mcg PO DAILY 07/10/23 06/14/24 Unknown History mcg (2,000 unit) tablet finasteride 5 mg tablet 5 mg PO DAILY 07/10/23 06/14/24 Unknown History folic acid 1 mg tablet 1 mg PO DAILY 07/10/23 06/14/24 Unknown History haloperidol decanoate 50 mg/mL 50 mg IM Q4W 07/10/23 06/14/24 Unknown History intramuscular solution multivitamin 1 tab PO DAILY 07/10/23 06/14/24 Unknown History risperidone 2 mg tablet 2 mg PO BID 07/10/23 06/14/24 Unknown History sucralfate 1 gram tablet (Carafate) 1 g PO TID 07/10/23 06/14/24 Unknown History amlodipine 10 mg tablet 10 mg PO DAILY 07/23/23 06/14/24 Unknown History levetiracetam 100 mg/mL oral 250 mg PO BID 07/23/23 06/14/24 Unknown History solution Glucose Gel 77.4% 1 appl PO Q15M PRN HYPOGLYCEMIA, 06/14/24 06/14/24 Unknown History BS <60 acetaminophen 325 mg tablet 650 mg PO Q6H PRN General 06/14/24 06/14/24 Unknown History Discomfort/Temp Over 101 acetaminophen 650 mg rectal 650 mg AZ Q6H PRN General 06/14/24 06/14/24 Unknown History suppository Discomfort/Temp Over 101 benztropine 1 mg tablet 1 mg PO BID 06/14/24 06/14/24 Unknown History bisacodyl 10 mg rectal suppository 10 mg AZ DAILY PRN Costipation/If 06/14/24 06/14/24 Unknown History MoM not effective. glucagon 1 mg/0.2 mL subcutaneous 1 mg subcut Q15M PRN blood Sugar 06/14/24 06/14/24 Unknown History solution (Gvoke) insulin glargine 100 unit/mL 6 unit subcut DAILY 06/14/24 06/14/24 Unknown History subcutaneous solution (Lantus U-100 Insulin) insulin lispro 100 unit/mL 1 sliding scale dose subcut 06/14/24 06/14/24 Unknown History subcutaneous solution (Humalog USEASDIRECTD U-100 Insulin) isosorbide mononitrate 30 mg 30 mg PO DAILY 06/14/24 06/14/24 Unknown History tablet,extended release 24 hr lactulose 10 gram/15 mL (15 mL) 45 ml PO DAILY 06/14/24 06/14/24 Unknown History oral solution lanolin alcohols-mineral 1 appl topical TID XEROSIS CUTIS 06/14/24 06/14/24 Unknown History oil-w.petrolatum-ceresin topical cream (Minerin Creme topical) levothyroxine 100 mcg tablet 100 mcg PO DAILY@0600 06/14/24 06/14/24 Unknown History pantoprazole 40 mg tablet,delayed 40 mg PO DAILY@0630 06/14/24 06/14/24 Unknown History release thiamine HCl (vitamin B1) 100 mg 100 mg PO DAILY 06/14/24 06/14/24 Unknown History tablet Physical Exam Vital Signs: Vital Signs: Last Vital Signs Temp 97.1 F 06/21/24 07:34 Pulse 54 06/21/24 07:34 Resp 16 06/21/24 07:34 BP 132/62 06/21/24 07:34 Pulse Ox 99 06/21/24 07:34 O2 Del Method Nasal Cannula 06/21/24 07:34 O2 Flow Rate 2 06/21/24 07:34 FiO2 30 06/16/24 12:00 BMI result Body Mass Index 23.9 EXAM: GENERAL: The patient is frail, awake but not answering questions VITAL SIGNS:see workflow HEENT: Nonicteric sclerae, PERRLA, EOMI. Oropharynx clear. Moist mucous membranes. Conjunctivae appear pale. No thyroid mass. CHEST: Chest wall is nontender. HEART: Regular rate and rhythm without murmurs. LUNGS: Clear to auscultation bilaterally. ABDOMEN: Soft, positive bowel sounds, nontender, no organomegaly.no flank tenderness SKIN: No rash, no excessive bruising, petechiae, or purpura. NEUROLOGIC: awake, non verbal, moving arms spontaneously Psych: non verbal Results Labs 06/21/24 07:16 06/21/24 07:16 Labs: Short CBC 06/21/24 Range/Units 07:16 WBC 10.8 (4.8-10.8) X10*3/uL Hgb 7.5 L (14.0-18.0) g/dl Hct 24.0 L (42.0-52.0) % Plt Count 178 (160-400) X10*3/uL BMP 06/21/24 07:16 Sodium 149 H Potassium 4.6 Chloride 116 H Carbon Dioxide 23 BUN 119 H Creatinine 2.84 H Calcium 9.7 Liver Function 06/21/24 Range/Units 07:16 Albumin 3.5 (3.5-5.0) g/dL Microbiology Microbiology Results: Microbiology 06/14/24 11:05 Blood - Venous Blood Culture - Final No growth after 5 days. 06/14/24 11:03 Blood - Venous Blood Culture - Final No growth after 5 days. 06/14/24 Unknown Urine Catheterized - Burger Catheter Urine Culture - Final Klebsiella pneumoniae Proteus mirabilis Assessment and Plan (1) Blood loss anemia: Status: Acute Plan 1/ Anemia in setting of CKD, fluids, and micro hematuria whilst on eliquis. No evidence of overt GI bleeding thus far. PLAN: 1/ Recommend checking iron levels, b12, folate snd replace if low 2/ recommence eliquis due to high chads score, if overt bleeding then stop and consider egd, colonoscopy for further eval 3/ cont home PPI in case of stress gastritis Procedures Date of Service Date of Service: 06/21/24
[2024-06-21 11:34] VITALS: BP 136/64; PULSE 55; RESP 16; TEMP 36.8; O2SAT 98
[2024-06-21] MEDS: Dextrose 5 % 1,000 ML 60 ML IVCONT (12:27)
[2024-06-21 12:31] LABS: Glucose, Whole Blood 95 mg/dL (60-115)
[2024-06-21] MEDS: levETIRAcetam in NaCl (iso-os) 500 MG/100 ML PIGGYBACK 400 MG IV (12:32)
--- NOTE | 2024-06-21 13:30 | MHC.SL.DTX ---
Dysphagia Diet modifications: Last documented Solid diet consistencies: Pureed (NDD1) Last documented Liquid consistency: Thin Last documented Medication Administration: Changes made to current diet?: No: No changes at this time Liquid Consistency and Strategies: Liquid Intake Recommendation: Thin Compensatory Strategies for Safe Swallow: Small Sips No Straws Compensatory Strategies for Safe Swallow(b): Sitting Upright (90 deg) No Straw Liquids from Cup Small Bites and Sips Alternate Liquids/Solids Rate of Ingestion Change Oral Check Avoid Specific Foods Solid Food Consistency: Dietary Recommendations: Pureed (NDD1) Additional Modifications to Solids: Pt was seen after Lunch with his tray >80% completed. Per NUTRITION SERVICES ASSOCIATE he took time to feed, but demonstrated no overt s/s of aspiration. He is watching TV on arrival. He opens his mouth to accept bites of Puree Solids which he processes at an appropriate rate with complete recollection and no overt s/s of aspiration. Pt tolerated Thin Liquids via Ice Chip, Spoon, and Controlled Cup Sip. A Straw was attempted and was initially successful, but as the straw was being taken away from the Pt he demonstrated a severe coughing reaction. PACKAGING ENGINEER attempted to suction but the suction device was not working. PACKAGING ENGINEER contacted RN who was able to resolve the issue. PACKAGING ENGINEER suctioned the patient. He appeared increasingly lethargic after this episode. PACKAGING ENGINEER recommending vital taken. No change to diet recommended. If Pt continues to do well with this baseline diet, recommend he be seen x1 for follow-up. Oral Medication Intake: Crushed with Puree Strategies and Precautions to be Taken for Safe Swallow: Sitting Upright (90 deg) No Straw Liquids from Cup Small Bites and Sips Alternate Liquids/Solids Rate of Ingestion Change Oral Check Avoid Specific Foods Supervision While Eating and/Drinking: Total Assistance (1:1) Foods to Avoid: Mixed consistencies Swallowing Recommended Treatments: Compens. Strategy Educat. Level of Impact on: Daily activities: Mild Interpersonal interactions: Education: None Employment: Mild Community: Mild Prognosis for Improvement: Guarded Recommendation for Speech: Inpatient Speech Therapy Pt was seen after Lunch with his tray >80% completed. Per NUTRITION SERVICES ASSOCIATE he took time to feed, but demonstrated no overt s/s of aspiration. He is watching TV on arrival. He opens his mouth to accept bites of Puree Solids which he processes at an appropriate rate with complete recollection and no overt s/s of aspiration. Pt tolerated Thin Liquids via Ice Chip, Spoon, and Controlled Cup Sip. A Straw was attempted and was initially successful, but as the straw was being taken away from the Pt he demonstrated a severe coughing reaction. PACKAGING ENGINEER attempted to suction but the suction device was not working. PACKAGING ENGINEER contacted RN who was able to resolve the issue. PACKAGING ENGINEER suctioned the patient. He appeared increasingly lethargic after this episode. PACKAGING ENGINEER recommending vital taken. No change to diet recommended. If Pt continues to do well with this baseline diet, recommend he be seen x1 for follow-up. Security And Privacy Consultant Clinican/Clinical Fellow: No Supervisory Statement: I have reviewed and agree with the student/clinical fellow's documentation: N/A Speech Language Pathologist: Guzman Rascon M.A., CCC-PACKAGING ENGINEER
--- NOTE | 2024-06-21 13:43 | P.PNNP_ITS ---
Subjective Subjective Date of Service: 06/21/24 Interval history: 73-year-old gentleman with underlying history of diabetes mellitus chronic kidney disease, paroxysmal AFib on Eliquis, diastolic heart failure, dementia, pontine CVA with residual left hemiparesis, schizophrenia admitted on 06/14/2024 off arm [facility] nurse facility where he resides with worsening confusion. On ER evaluation patient hypotensive and hypoxic requiring intubation for airway protection and pressor support. Started on empiric antibiotics and admitted to the intensive care unit. Extubated 06/16/2024. fairly sedated on this day, no communicatvve Events noted. P.o. intake is adequate on TPN. Physical Exam 2 Vital Signs: Vital Signs: Last Vital Signs Temp 98.2 F 06/21/24 11:34 Pulse 55 06/21/24 11:34 Resp 16 06/21/24 11:34 BP 136/64 06/21/24 11:34 Pulse Ox 98 06/21/24 11:34 O2 Del Method Nasal Cannula 06/21/24 11:34 O2 Flow Rate 2 06/21/24 11:34 FiO2 30 06/16/24 12:00 BMI result Body Mass Index 23.9 Const: Other: General: Alert but non communicative, Resp: ernesto rhonchi CVS: S1,S2,RRR GI: +BS, NT, no distention Skin: No rash Neuro: motor grossly intact Psych: appropriate affect Objective Data Labs 06/21/24 07:16 06/21/24 07:16 Labs: Laboratory Results - last 24 hr 06/20/24 06/20/24 06/20/24 15:14 20:43 23:37 WBC RBC Hgb Hct MCV MCH MCHC RDW Plt Count MPV Absolute Nucleated RBC Nucleated RBC % (auto) Sodium Potassium Chloride Carbon Dioxide Anion Gap BUN Creatinine Estim Creat Clear Calc Estimated GFR POC Glucose 156 H 194 H 286 H Random Glucose Calcium Phosphorus Magnesium Albumin 06/21/24 06/21/24 06/21/24 05:10 07:16 12:26 WBC 10.8 RBC 2.80 L Hgb 7.5 L Hct 24.0 L MCV 85.7 MCH 26.8 L MCHC 31.3 RDW 17.9 H Plt Count 178 MPV 11.1 Absolute Nucleated RBC 0.020 H Nucleated RBC % (auto) 0.2 Sodium 149 H Potassium 4.6 Chloride 116 H Carbon Dioxide 23 Anion Gap 15 BUN 119 H Creatinine 2.84 H Estim Creat Clear Calc 23.2 Estimated GFR 22 POC Glucose 178 H 95 Random Glucose 131 H Calcium 9.7 Phosphorus 3.2 Magnesium 2.7 H Albumin 3.5 Microbiology Microbiology Results: Microbiology 06/14/24 11:05 Blood - Venous Blood Culture - Final No growth after 5 days. 06/14/24 11:03 Blood - Venous Blood Culture - Final No growth after 5 days. 06/14/24 Unknown Urine Catheterized - Burger Catheter Urine Culture - Final Klebsiella pneumoniae Proteus mirabilis Procedures Date of Service Date of Service: 06/21/24 Assessment & Plan Assessment and plan (1) Acute renal failure superimposed on chronic kidney disease: Status: Acute (2) Dementia: Status: Acute Plan PELON onCKD Disproportioante increase in BUN Non oliguria Severe Anemia Hypernatremia Renal function is improving Keep I > O with hypotonic fluids Supportive care Avoid nephrotoxins Expect recovery No indication for diaysis Time Spent With Patient Time: Total time managing care of this patient today ____ minutes. Progress Note: Quality Stroke Does the patient have a stroke diagnosis?: No
[2024-06-21 14:27] LABS: Iron 20 mcg/dL (45-160); Percent Iron Saturation 11 % (15-50); Total Iron Binding Capacity 188 mcg/dL (228-428); Unsaturated Iron Binding 168 ug/dL
[2024-06-21 14:45] LABS: Ferritin 157 ng/mL (20-250)
[2024-06-21 15:27] VITALS: BP 154/67; PULSE 66; RESP 19; TEMP 35.8; O2SAT 100
--- NOTE | 2024-06-21 15:41 | HO.PM.IMPN ---
Subjective Subjective Date of Service: 06/21/24 Interval History: follow up Review of Systems taking po ,tpn discontinued more awake ,try to utter some words Physical Exam Vital Signs: Vital Signs: Last Vital Signs Temp 96.5 F L 06/21/24 15:27 Pulse 66 06/21/24 15:27 Resp 19 06/21/24 15:27 BP 154/67 H 06/21/24 15:27 Pulse Ox 100 06/21/24 15:27 O2 Del Method Nasal Cannula 06/21/24 15:27 O2 Flow Rate 2 06/21/24 11:34 FiO2 30 06/16/24 12:00 BMI result Body Mass Index 23.9 General: Alert but non communicative, Resp: ernesto rhonchi CVS: S1,S2,RRR GI: +BS, NT, no distention Skin: No rash Neuro: motor grossly intact Psych: appropriate affect Objective Data Active Medications Apixaban (Apixaban 5 Mg Tablet) 5 mg PO BID [facility] Atorvastatin Calcium (Atorvastatin Calcium 20 Mg Tablet) 20 mg PO DAILY [facility] Last Admin: 06/21/24 09:17 Dose: 20 mg Documented By: MISTI Bisacodyl (Bisacodyl 10 Mg Supp.Rect) 10 mg [place] DAILY PRN PRN Reason: Costipation/If MoM not effective. Chlorhexidine Gluconate (Chlorhexidine Gluc Oral Rinse 15 Ml Mouthwash) 15 ml BUCCAL TID [facility] Last Admin: 06/21/24 09:17 Dose: 15 ml Documented By: MISTI Finasteride (Finasteride 5 Mg Tablet) 5 mg PO DAILY [facility] Last Admin: 06/21/24 09:17 Dose: 5 mg Documented By: MISTI Folic Acid (Folic Acid 1 Mg Tablet) 1 mg PO DAILY [facility] Last Admin: 06/21/24 09:17 Dose: 1 mg Documented By: MISTI Meropenem 500 mg/ Sodium (Chloride) 50 mls @ 200 mls/hr IV Q12H [facility] Last Infusion: 06/21/24 13:08 Dose: Infused Documented By: MISTI Levetiracetam (Keppra) 500 mg in 100 mls @ 400 mls/hr IV Q12H [facility] Last Infusion: 06/21/24 12:54 Dose: Infused Documented By: MISTI Dextrose (D5w) 1,000 mls @ 60 mls/hr IVCONT .[id number] [facility] Last Admin: 06/21/24 12:27 Dose: 60 mls/hr Documented By: MISTI Insulin Glargine (Insulin Glargine,Hum.Rec.Anlog 100 Unit/Ml 10 Ml Vial) 12 unit SUBCUT DAILY [facility] Last Admin: 06/21/24 09:18 Dose: 12 unit Documented By: MISTI Insulin Human Lispro (Insulin Lispro 100 Unit/Ml 3 Ml Vial) 0 unit SUBCUT Q6H [facility]; Protocol Last Admin: 06/21/24 12:30 Dose: Not Given Documented By: MISTI Non-Admin Reason: No Insulin Coverage Levothyroxine Sodium (Levothyroxine Sodium 100 Mcg Tablet) 100 mcg PO DAILY@0600 [facility] Last Admin: 06/21/24 09:17 Dose: 100 mcg Documented By: MISTI Multivitamins/Vitamin C (Multivitamin Tablet) 1 tab PO DAILY [facility] Last Admin: 06/21/24 09:17 Dose: 1 tab Documented By: MISTI Omeprazole (Omeprazole 20 Mg Capsule.Dr) 20 mg PO DAILY@0630 [facility] Last Admin: 06/21/24 05:47 Dose: 20 mg Documented By: DEION Sodium Chloride (0.9 % Sodium Chloride Flush 3 Ml Syringe) 3 ml IVFLUSH QSHIFT [facility] Last Admin: 06/21/24 09:18 Dose: 3 ml Documented By: MISTI Sucralfate (Sucralfate 1 Gm Tablet) 1 gm PO TID [facility] Last Admin: 06/21/24 09:17 Dose: 1 gm Documented By: MISTI Vitamin D (Cholecalciferol (Vitamin D3) 25 Mcg Tablet) 50 mcg PO DAILY [facility] Last Admin: 06/21/24 09:17 Dose: 50 mcg Documented By: MISTI Labs 06/21/24 07:16 06/21/24 07:16 Labs: Laboratory Results - last 24 hr 06/20/24 06/20/24 06/21/24 20:43 23:37 05:10 MCV MCH MCHC RDW Plt Count MPV Absolute Nucleated RBC Nucleated RBC % (auto) Anion Gap Estim Creat Clear Calc Estimated GFR POC Glucose 194 H 286 H 178 H Random Glucose Calcium Phosphorus Magnesium Iron TIBC % Saturation Unsat Iron Binding Ferritin Albumin 06/21/24 06/21/24 07:16 12:26 MCV 85.7 MCH 26.8 L MCHC 31.3 RDW 17.9 H Plt Count 178 MPV 11.1 Absolute Nucleated RBC 0.020 H Nucleated RBC % (auto) 0.2 Anion Gap 15 Estim Creat Clear Calc 23.2 Estimated GFR 22 POC Glucose 95 Random Glucose 131 H Calcium 9.7 Phosphorus 3.2 Magnesium 2.7 H Iron 20 L TIBC 188 L % Saturation 11 L Unsat Iron Binding 168 Ferritin 157 Albumin 3.5 Assessment and Plan (1) Dementia: Status: Acute Assessment and Plan: 73-year-old gentleman with underlying schizophrenia, dementia, left hemiparesis post CVA admitted with alteration of mental status and hypoxia requiring intubation and ventilatory support and vasopressor use Alteration of mental status/metabolic encephalopath d/t sepsis with underlying schizophrenia, dementia and and lack of decision-making capacity and has court appointment guardian Sepsis d/t Klebsiela ESBL and Proteus, spsis resolved -continue meropenem -Blood cultures have been negative Septic shock--required vasopressors but resolved. Acute hypoxic respiratory failure related to aspiration pneumnia that required vent support, succesfully extubated on 06/16, respiratory status has improved. -continue Abx as above. -wean off O2 H/o chronic AFIB--previously on Eliquis but has been on hold d/t significant anemia that required transfusion . rate is controlled, not on rate control meds Chronic diastolic heart failure--compensated PELON on CKD 4,improved Creatine within baseline Diabetes--with hyperglycemia today d/t TPN, off TNP, blood sugar down. -continue Lantus and SSI Chronic constipation--lactulose PRN, enema PRN Acute blood loss anemia, coagulopathy treated with Vit k, transfused 1 unit of RBC, elquis has been on hold. H/H has been stable, + occult blood, consider gi input before restarting eliquis HypoT--IV levothyroxine, once taking oral consistantly change to PO Seizure d/o Keppra, change to PO tomorrow Schizophrenia--patient on multiple meds including monthly haldol, risperidal, congentin--he has been fairly sedated and therefore these meds have been on hold, reintroduce if becoming agitated HTN--imdur and Norvasc on hold, BP ok HLD--Lipitor Diabetes--Lantus and SSI. Monitor sugars FEN--patient was not very responsive and has been on TPN MERCURY WASHER rec Puree NDD1 and thin liquid TPN stopped today Full code Need for inpatient : recovering from sepsis, encephalopathy, UTI, aspiration PNA Prophylaxis: Pneumatic compression, famotidine Quality Stroke Does the patient have a stroke diagnosis?: No VTE Prior VTE?: No VTE Risk Level:: Medical - moderate - high VTE Device Contraindication: Treatment Not Indicated VTE Drug Contraindication: N/A - Med Ordered
[2024-06-21 16:34] LABS: Hematocrit 22.9 % (42.0-52.0); Hemoglobin 7.3 g/dl (14.0-18.0)
[2024-06-21 16:39] LABS: Sodium 149 mmol/L (135-145)
[2024-06-21 17:37] LABS: Glucose, Whole Blood 288 mg/dL (60-115)
[2024-06-21] MEDS: Sodium Chloride 0.45 % 1,000 ML 60 ML IVCONT (18:17)
[2024-06-21 20:00] VITALS: BP 131/60; PULSE 56; RESP 20; TEMP 36.4
[2024-06-21] MEDS: Apixaban 5 MG TABLET PO (20:20)
[2024-06-21 21:52] LABS: Glucose, Whole Blood 265 mg/dL (60-115)
--- NOTE | 2024-06-21 23:31 | W.PM.IDCN ---
History of Present Illness Data of Consult Service Date: 06/21/24 Requesting physician: Chandana Kimbrough Primary Care Provider: LOR HALEY Reason for consult: hypoxia He is a schizophrenic with prior left CVA and is in a facility. He has chronic Burger and has Klebsiella pneumonia and proteus. He has been in ICU. He has been intubated and vomiting. Review of Systems Review of Systems: Yes Unobtainable due to mental condition PMFSH Past Medical History Medical History Type 2 diabetes mellitus Hypertensive cardiovascular-renal disease Hypothermia Schizophrenia BPH (benign prostatic hyperplasia) Stage 3b chronic kidney disease (CKD) Left hemiparesis Right pontine CVA Hypertension Recurrent UTI Dysphagia Dementia Chronic diastolic heart failure Paroxysmal A-fib Diabetes mellitus type 2 in obese Family History Family history: reviewed and not pertinent Social History Social History Household Members: Unknown / Unable to assess Housing: Shelter Unable to assess alcohol history related to: Unable to respond Patient Tobacco Use Status: Tobacco use Unknown Substance Use Type: Unknown Meds Allergies Allergy/AdvReac Type Severity Reaction Status Date / Time No Known Allergies Allergy Verified 07/10/23 03:39 Active Medications: Current Medications Apixaban (Apixaban 5 Mg Tablet) 5 mg PO BID [facility] Last Admin: 06/21/24 20:20 Dose: 5 mg Atorvastatin Calcium (Atorvastatin Calcium 20 Mg Tablet) 20 mg PO DAILY [facility] Last Admin: 06/21/24 09:17 Dose: 20 mg Bisacodyl (Bisacodyl 10 Mg Supp.Rect) 10 mg [place] DAILY PRN PRN Reason: Costipation/If MoM not effective. Chlorhexidine Gluconate (Chlorhexidine Gluc Oral Rinse 15 Ml Mouthwash) 15 ml BUCCAL TID [facility] Last Admin: 06/21/24 20:21 Dose: 15 ml Finasteride (Finasteride 5 Mg Tablet) 5 mg PO DAILY [facility] Last Admin: 06/21/24 09:17 Dose: 5 mg Folic Acid (Folic Acid 1 Mg Tablet) 1 mg PO DAILY [facility] Last Admin: 06/21/24 09:17 Dose: 1 mg Glucose (Glucose Gel 15 Gm Gel..Gram.) 15 gm PO Q15M PRN; Protocol PRN Reason: per Hypoglycemia Standing Ord. Meropenem 500 mg/ Sodium (Chloride) 50 mls @ 200 mls/hr IV Q12H [facility] Last Infusion: 06/21/24 21:55 Dose: Infused Levetiracetam (Keppra) 500 mg in 100 mls @ 400 mls/hr IV Q12H [facility] Last Infusion: 06/21/24 12:54 Dose: Infused Sodium Chloride (Sodium Chloride 0.45 %) 1,000 mls @ 60 mls/hr IVCONT .[id number] [facility] Last Admin: 06/21/24 18:17 Dose: 60 mls/hr Dextrose (D10) 250 mls @ 750 mls/hr IV Q15M PRN; Protocol PRN Reason: per Hypoglycemia Standing Ord. Insulin Glargine (Insulin Glargine,Hum.Rec.Anlog 100 Unit/Ml 10 Ml Vial) 12 unit SUBCUT DAILY [facility] Last Admin: 06/21/24 09:18 Dose: 12 unit Insulin Human Lispro (Insulin Lispro 100 Unit/Ml 3 Ml Vial) 0 unit SUBCUT Q6H [facility]; Protocol Last Admin: 06/21/24 17:41 Dose: 8 unit Insulin Human Lispro (Insulin Lispro 100 Unit/Ml 3 Ml Vial) 0 unit SUBCUT QIDACHS [facility]; Protocol Levothyroxine Sodium (Levothyroxine Sodium 100 Mcg Tablet) 100 mcg PO DAILY@0600 [facility] Last Admin: 06/21/24 09:17 Dose: 100 mcg Multivitamins/Vitamin C (Multivitamin Tablet) 1 tab PO DAILY [facility] Last Admin: 06/21/24 09:17 Dose: 1 tab Omeprazole (Omeprazole 20 Mg Capsule.Dr) 20 mg PO DAILY@0630 [facility] Last Admin: 06/21/24 05:47 Dose: 20 mg Sodium Chloride (0.9 % Sodium Chloride Flush 3 Ml Syringe) 3 ml IVFLUSH QSHIFT [facility] Last Admin: 06/21/24 23:13 Dose: 3 ml Sucralfate (Sucralfate 1 Gm Tablet) 1 gm PO TID [facility] Last Admin: 06/21/24 20:21 Dose: 1 gm Vitamin D (Cholecalciferol (Vitamin D3) 25 Mcg Tablet) 50 mcg PO DAILY [facility] Last Admin: 06/21/24 09:17 Dose: 50 mcg Home Medications ?Medication ?Instructions ?Recorded ?Confirmed ?Last Taken ?Type apixaban 5 mg tablet (Eliquis) 5 mg PO BID 07/10/23 06/14/24 Unknown History atorvastatin 20 mg tablet 20 mg PO DAILY 07/10/23 06/14/24 Unknown History cholecalciferol (vitamin D3) 50 50 mcg PO DAILY 07/10/23 06/14/24 Unknown History mcg (2,000 unit) tablet finasteride 5 mg tablet 5 mg PO DAILY 07/10/23 06/14/24 Unknown History folic acid 1 mg tablet 1 mg PO DAILY 07/10/23 06/14/24 Unknown History haloperidol decanoate 50 mg/mL 50 mg IM Q4W 07/10/23 06/14/24 Unknown History intramuscular solution multivitamin 1 tab PO DAILY 07/10/23 06/14/24 Unknown History risperidone 2 mg tablet 2 mg PO BID 07/10/23 06/14/24 Unknown History sucralfate 1 gram tablet (Carafate) 1 g PO TID 07/10/23 06/14/24 Unknown History amlodipine 10 mg tablet 10 mg PO DAILY 07/23/23 06/14/24 Unknown History levetiracetam 100 mg/mL oral 250 mg PO BID 07/23/23 06/14/24 Unknown History solution Glucose Gel 77.4% 1 appl PO Q15M PRN HYPOGLYCEMIA, 06/14/24 06/14/24 Unknown History BS <60 acetaminophen 325 mg tablet 650 mg PO Q6H PRN General 06/14/24 06/14/24 Unknown History Discomfort/Temp Over 101 acetaminophen 650 mg rectal 650 mg W[place] Q6H PRN General 06/14/24 06/14/24 Unknown History suppository Discomfort/Temp Over 101 benztropine 1 mg tablet 1 mg PO BID 06/14/24 06/14/24 Unknown History bisacodyl 10 mg rectal suppository 10 mg WY DAILY PRN Costipation/If 06/14/24 06/14/24 Unknown History MoM not effective. glucagon 1 mg/0.2 mL subcutaneous 1 mg subcut Q15M PRN blood Sugar 06/14/24 06/14/24 Unknown History solution (Gvoke) insulin glargine 100 unit/mL 6 unit subcut DAILY 06/14/24 06/14/24 Unknown History subcutaneous solution (Lantus U-100 Insulin) insulin lispro 100 unit/mL 1 sliding scale dose subcut 06/14/24 06/14/24 Unknown History subcutaneous solution (Humalog USEASDIRECTD U-100 Insulin) isosorbide mononitrate 30 mg 30 mg PO DAILY 06/14/24 06/14/24 Unknown History tablet,extended release 24 hr lactulose 10 gram/15 mL (15 mL) 45 ml PO DAILY 06/14/24 06/14/24 Unknown History oral solution lanolin alcohols-mineral 1 appl topical TID XEROSIS CUTIS 06/14/24 06/14/24 Unknown History oil-w.petrolatum-ceresin topical cream (Minerin Creme topical) levothyroxine 100 mcg tablet 100 mcg PO DAILY@0600 06/14/24 06/14/24 Unknown History pantoprazole 40 mg tablet,delayed 40 mg PO DAILY@0630 06/14/24 06/14/24 Unknown History release thiamine HCl (vitamin B1) 100 mg 100 mg PO DAILY 06/14/24 06/14/24 Unknown History tablet Physical Exam Vital Signs: Vital Signs: Last Vital Signs Temp 97.6 F 06/21/24 20:00 Pulse 56 06/21/24 20:00 Resp 20 06/21/24 20:00 BP 131/60 06/21/24 20:00 Pulse Ox 100 06/21/24 15:27 O2 Del Method Nasal Cannula 06/21/24 15:27 O2 Flow Rate 2 06/21/24 11:34 FiO2 30 06/16/24 12:00 BMI result Body Mass Index 23.9 Const: General: cooperative HEENT: Head: Yes normal to inspection Face and sinus: Yes normal facial exam Mouth: Normal oral and palatal mucosa present Teeth and gingiva: dentition normal Eyes: General: appearance normal, both eyes and all related structures Pupils: Equal, round and reactive pupils present Resp: Effort & Inspection: normal respiratory effort Cardio: Rate: regular rate Rhythm: regular rhythm GI: Palpation (GI): Soft to palpation and nontender : General: Yes no CVA tenderness Back/Spine/Pelvis: Back: no CVA tenderness Skin: General skin exam: no rashes or lesions noted Neuro: General: moves all extremities Cranial nerves: Yes Equal, round and reactive pupils present Extrem: General: Yes normal to inspection Psych: Other: confused Results Labs 06/21/24 16:23 06/21/24 16:23 Labs: Short CBC 06/21/24 06/21/24 Range/Units 07:16 16:23 WBC 10.8 (4.8-10.8) X10*3/uL Hgb 7.5 L 7.3 L (14.0-18.0) g/dl Hct 24.0 L 22.9 L (42.0-52.0) % Plt Count 178 (160-400) X10*3/uL BMP 06/21/24 06/21/24 07:16 16:23 Sodium 149 H 149 H Potassium 4.6 Chloride 116 H Carbon Dioxide 23 BUN 119 H Creatinine 2.84 H Calcium 9.7 Liver Function 06/21/24 Range/Units 07:16 Albumin 3.5 (3.5-5.0) g/dL Microbiology Microbiology Results: Microbiology 06/14/24 11:05 Blood - Venous Blood Culture - Final No growth after 5 days. 06/14/24 11:03 Blood - Venous Blood Culture - Final No growth after 5 days. 06/14/24 Unknown Urine Catheterized - Burger Catheter Urine Culture - Final Klebsiella pneumoniae Proteus mirabilis Assessment and Plan (1) Acute renal failure superimposed on chronic kidney disease: Status: Acute (2) Pulmonary aspiration: Status: Acute Plan Aspiration pneumonitis There is possible gram negative/anerobes/gram positives. Less likely MRSAs or atypicals. Do not think urine culture are relevant as chronic Burger and colonized so not necessarily need Merem and can use Piperacillin/tazobactam Possible 5-7 days IV antibiotics. Consider check nares MRSA as well. Minimize aspiration.
[2024-06-22] VITALS (7 sets, daily range): BP systolic 140–173; BP diastolic 63–76; PULSE 50–67; RESP 18–20; TEMP 36.1–36.3; O2SAT 95–100
[2024-06-22] MEDS: levETIRAcetam in NaCl (iso-os) 500 MG/100 ML PIGGYBACK 400 MG IV ×2 (00:34→11:43)
[2024-06-22] MEDS: Levothyroxine Sodium 100 MCG TABLET PO (05:42)
[2024-06-22] MEDS: Omeprazole 20 MG CAPSULE.DR PO (05:42)
[2024-06-22 06:53] LABS: Albumin Level 3.3 g/dL (3.5-5.0); Anion Gap 13 (12-20); Blood Urea Nitrogen 119 mg/dL (9-16); Calcium 9.4 mg/dL (8.4-10.2); Carbon Dioxide 25 mmol/L (22-29); Chloride 115 mmol/L (96-108); Creatinine Clr Calc Pharmacy 26.3; Estimated Glomerular Filt Rate 25; Glucose Random 206 mg/dL (60-115); Magnesium 2.5 mg/dL (1.6-2.6); Phosphorus 3.6 mg/dL (2.7-4.5); Potassium 4.7 mmol/L (3.3-5.1); Sodium 148 mmol/L (135-145)
[2024-06-22 06:55] LABS: Hematocrit 22.6 % (42.0-52.0); Hemoglobin 7.2 g/dl (14.0-18.0)
[2024-06-22 08:05] LABS: Glucose, Whole Blood 168 mg/dL (60-115)
[2024-06-22] MEDS: Multivitamin TABLET 1 TAB PO (10:22)
[2024-06-22] MEDS: Folic Acid 1 MG TABLET PO (10:23)
[2024-06-22] MEDS: Finasteride 5 MG TABLET PO (10:23)
[2024-06-22] MEDS: Chlorhexidine Gluc Oral Rinse 15 ML MOUTHWASH BUCCAL ×2 (10:23→15:43)
[2024-06-22] MEDS: Sucralfate 1 GM TABLET PO ×3 (10:23→20:19)
[2024-06-22] MEDS: Sodium Chloride 0.45 % 1,000 ML 60 ML IVCONT (10:23)
[2024-06-22] MEDS: Atorvastatin Calcium 20 MG TABLET PO (10:23)
[2024-06-22] MEDS: Cholecalciferol (Vitamin D3) 25 MCG TABLET 50 MCG PO (10:23)
[2024-06-22] MEDS: 0.9 % Sodium Chloride Flush 3 ML SYRINGE IVFLUSH ×2 (10:24→15:43)
[2024-06-22] MEDS: Insulin Lispro 100 UNIT/ML 3 ML VIAL SUBCUT ×3 (10:24→22:06)
[2024-06-22] MEDS: Insulin Glargine,Hum.rec.anlog 100 UNIT/ML 10 ML VIAL 12 UNIT SUBCUT (10:24)
--- NOTE | 2024-06-22 10:28 | P.CDIM_ITS ---
PROVIDER RESPONSE TEXT: To clarify, the appropriate diagnosis supported by the clinical indicators: Hypernatremia: hypernatremia sec to dec po intake QUERY TEXT: PHYSICIAN'S DOCUMENTATION REQUEST Date of Query: 06/22/2024 10:17 AM EDT Patient Name: Aristeo Garrett Admit Date: 06/14/2024 Dear Chandana Kimbrough MD, A review of the medical record indicates additional documentation may be needed. Please review below and update the documentation accordingly. Clinical Indicators: LABS: sodium 149 H 148 H Fluids Based on the above, is there a diagnosis that correlates with these lab findings: Hypernatremia possible, probable, etc. Labs indicate a diagnosis of (please specify) Other (explain) Clinically unable to determine (explain) Thank you, Debbie Fang, CCS, CDIS Use of terms such as suspected, likely, concern for, or probable (associated with a specific diagnosi s that is being evaluated, monitored, or treated as if it exists) are acceptable and can be coded in the inpatient se tting, when documented at the time of discharge. Please use your independent medical judgment in providing your response. THIS QUERY IS PART OF THE PERMANENT MEDICAL RECORD
--- NOTE | 2024-06-22 10:57 | P.PNNP_ITS ---
Subjective Subjective Date of Service: 06/22/24 Interval history: 73-year-old male with PMH of diabetes mellitus chronic kidney disease, paroxysmal AFib on Eliquis, diastolic heart failure, dementia, pontine CVA with residual left hemiparesis, schizophrenia admitted on 06/14/2024 off [facility] nurse facility where he resides with worsening confusion. Pt remains hypernatremic but improving, started on 0.45% NaCl IVF 60mL/hr last night (Na 148 this a.m., down from 149). Remains non-oliguric. creatinine continues to trend downward toward baseline (2.50 this a.m.). Nonverbal, sleeping today. Events noted. Physical Exam 2 Vital Signs: Vital Signs: Last Vital Signs Temp 97.1 F 06/22/24 08:00 Pulse 56 06/22/24 08:00 Resp 20 06/22/24 08:00 BP 141/67 H 06/22/24 08:00 Pulse Ox 98 06/22/24 08:00 O2 Del Method Nasal Cannula 06/22/24 08:00 O2 Flow Rate 2 06/22/24 08:00 FiO2 30 06/16/24 12:00 BMI result Body Mass Index 23.9 Const: General: comfortable; No acute distress Neck: Neck: Yes supple and Yes no JVD Resp: Effort & Inspection: normal respiratory effort Auscultation: rhonchi Cardio: Palpation: no palpable S3 and no palpable S4 Heart sounds: no rubs GI: Inspection: Yes normal to inspection Palpation (GI): Soft to palpation Auscultation: normal bowel sounds Skin: General skin exam: no petechiae and no purpura Neuro: Other: Nonverbal. Extrem: General: No clubbing and No edema Objective Data Labs 06/22/24 06:11 06/22/24 06:11 Labs: Laboratory Results - last 24 hr 06/21/24 06/21/24 06/21/24 07:16 12:26 16:23 Hgb 7.3 L Hct 22.9 L Sodium 149 H Potassium Chloride Carbon Dioxide Anion Gap BUN Creatinine Estim Creat Clear Calc Estimated GFR POC Glucose 95 Random Glucose Calcium Phosphorus Magnesium Iron 20 L TIBC 188 L % Saturation 11 L Unsat Iron Binding 168 Ferritin 157 Albumin 06/21/24 06/21/24 06/22/24 17:34 21:46 06:11 Hgb 7.2 L Hct 22.6 L Sodium 148 H Potassium 4.7 Chloride 115 H Carbon Dioxide 25 Anion Gap 13 BUN 119 H Creatinine 2.50 H Estim Creat Clear Calc 26.3 Estimated GFR 25 POC Glucose 288 H 265 H Random Glucose 206 H Calcium 9.4 Phosphorus 3.6 Magnesium 2.5 Iron TIBC % Saturation Unsat Iron Binding Ferritin Albumin 3.3 L 06/22/24 07:06 Hgb Hct Sodium Potassium Chloride Carbon Dioxide Anion Gap BUN Creatinine Estim Creat Clear Calc Estimated GFR POC Glucose 168 H Random Glucose Calcium Phosphorus Magnesium Iron TIBC % Saturation Unsat Iron Binding Ferritin Albumin Microbiology Microbiology Results: Microbiology 06/14/24 11:05 Blood - Venous Blood Culture - Final No growth after 5 days. 06/14/24 11:03 Blood - Venous Blood Culture - Final No growth after 5 days. 06/14/24 Unknown Urine Catheterized - Burger Catheter Urine Culture - Final Klebsiella pneumoniae Proteus mirabilis Procedures Date of Service Date of Service: 06/22/24 Assessment & Plan Assessment and plan (1) Acute renal failure superimposed on chronic kidney disease: Status: Acute Plan PELON on CKD Disproportioante increase in BUN- due to GIB Non oliguria Severe Anemia Hypernatremia Renal function continues to improve, now at baseline. Continue to keep I > O with hypotonic fluids Supportive care Avoid nephrotoxins Expect recovery Discussed with Dr Cain. Time Spent With Patient Time: Total time managing care of this patient today ____ minutes. Progress Note: Quality Stroke Does the patient have a stroke diagnosis?: No
--- NOTE | 2024-06-22 11:08 | MHC.CLN ---
F/U PT WITH INCREASED NUTRITION RISK R/T PRESSURE INJURIES PO INTAKE 50-100% DIET RX: PUREED-APPROPRIATE RECEIVING ENSURE MAX TID TO FURTHER PROMOTE WOUND HEALING SUPPLEMENT TO PROVIDE 450KCALS, 90G PROTEIN MONITOR PO INTAKE AND ENCOURAGE SUPPLEMENT
[2024-06-22] MEDS: Piperacillin Sodium/Tazobactam 3.375 GM in 0.9 % Sodium Chloride 50 ML IV ×2 (11:43→17:05)
--- NOTE | 2024-06-22 11:59 | MHC.CM.PN ---
EMR reviewed and per MD rounds pt is not medically cleared for discharge due to monitoring of renal function, electrolytes, and H+H.
[2024-06-22 12:05] LABS: Glucose, Whole Blood 133 mg/dL (60-115)
[2024-06-22 12:07] LABS: Glucose, Whole Blood 134 mg/dL (60-115)
--- NOTE | 2024-06-22 12:07 | MHC.SL.SWA ---
Risk of Aspiration Due to: History of Pneumonia Hx of Recent Extubation Dysphasia Diet Status: NO CHANGE Liquid Consistency and Strategies for Safe Swallow: Liquid Intake Recommendation: Thin Liquid Intake Strategies: Small & Controlled Sips Solid Food Consistency: Dietary Recommendations: Pureed (NDD1) Oral Medication Intake: Crushed with Puree Please contact the pharmacy regarding appropriate crushable or liquid drug formulations that are available whenever modified delivery is recommended. Compensatory Strategies and Precautions to be Taken for Safe Swallow: Sitting Upright (90 deg) Small Bites and Sips Alternate Liquids/Solids Rate of Ingestion Change Oral Check Avoid Specific Foods Supervision While Eating and Drinking for Safe Swallow: Total Assistance (1:1) Foods to Avoid: Mixed consistencies Swallowing Recommended Treatments: Compens. Strategy Educat. Recommendation for Speech: Inpatient Speech Therapy Comment: Recommend pt continue with PUREE solids (NDD1), THIN liquids, and pills CRUSHED in PUREE. This is reportedly pt's baseline diet. Pt requires assistance to take small and controlled sip via cup or straw. May need to remove straw from pt's mouth to support small sips. Recommend 1 f/u with FURNITURE REPAIRER to determine toleration of diet, particularly use of straw for liquids. Candy Butcher Clinican/Clinical Fellow: No Supervisory Statement: I have reviewed and agree with the student/clinical fellow's documentation: N/A Speech Language Pathologist: Cata Finch M.A., CCC-FURNITURE REPAIRER
[2024-06-22 13:39] LABS: MRSA Nasal PCR NEGATIVE (Negative); SA Nasal PCR NEGATIVE (Negative)
[2024-06-22] MEDS: Pantoprazole Sodium 40 MG/10 ML VIAL IVPUSH (15:43)
--- NOTE | 2024-06-22 15:50 | P.PNGI_ITS ---
Subjective Subjective Date of Service: 06/22/24 Interval History: awake minimally verbal, does not answer qn, per RN this is his reported base line HGB has been stable Critical Care Time (minutes): 0 Physical Exam 2 Vital Signs: Vital Signs: Last Vital Signs Temp 97.0 F 06/22/24 15:47 Pulse 55 06/22/24 15:47 Resp 18 06/22/24 15:47 BP 156/70 H 06/22/24 15:47 Pulse Ox 95 06/22/24 15:47 O2 Del Method Nasal Cannula 06/22/24 15:47 O2 Flow Rate 2 06/22/24 15:47 FiO2 30 06/16/24 12:00 BMI result Body Mass Index 23.9 EXAM: GENERAL: The patient is frail VITAL SIGNS:see workflow HEENT: Nonicteric sclerae, PERRLA, EOMI. Oropharynx clear. Moist mucous membranes. Conjunctivae appear well perfused. No thyroid mass. CHEST: Chest wall is nontender. HEART: irreg rhythm LUNGS: Clear to auscultation bilaterally. ABDOMEN: Soft, positive bowel sounds, nontender, no organomegaly.no flank tenderness SKIN: No rash, no excessive bruising, petechiae, or purpura. NEUROLOGIC: non verbal, moving arms Psych: non verbal HI: maroon and brownish stools, hard stool balls in rectum Objective Data Labs 06/22/24 06:11 06/22/24 06:11 Labs: Laboratory Results - last 24 hr 06/21/24 06/21/24 06/21/24 16:23 17:34 21:46 Hgb 7.3 L Hct 22.9 L Sodium 149 H Potassium Chloride Carbon Dioxide Anion Gap BUN Creatinine Estim Creat Clear Calc Estimated GFR POC Glucose 288 H 265 H Random Glucose Calcium Phosphorus Magnesium Albumin Nasal Screen MRSA (PCR) Nasal S. aureus Screen Nasal MRSA/S.aureus Interp 06/22/24 06/22/24 06/22/24 06:11 07:06 12:01 Hgb 7.2 L Hct 22.6 L Sodium 148 H Potassium 4.7 Chloride 115 H Carbon Dioxide 25 Anion Gap 13 BUN 119 H Creatinine 2.50 H Estim Creat Clear Calc 26.3 Estimated GFR 25 POC Glucose 168 H 133 H Random Glucose 206 H Calcium 9.4 Phosphorus 3.6 Magnesium 2.5 Albumin 3.3 L Nasal Screen MRSA (PCR) Nasal S. aureus Screen Nasal MRSA/S.aureus Interp 06/22/24 06/22/24 12:03 12:15 Hgb Hct Sodium Potassium Chloride Carbon Dioxide Anion Gap BUN Creatinine Estim Creat Clear Calc Estimated GFR POC Glucose 134 H Random Glucose Calcium Phosphorus Magnesium Albumin Nasal Screen MRSA (PCR) NEGATIVE Nasal S. aureus Screen NEGATIVE Nasal MRSA/S.aureus Interp SEE NOTE Microbiology Microbiology Results: Microbiology 06/14/24 11:05 Blood - Venous Blood Culture - Final No growth after 5 days. 06/14/24 11:03 Blood - Venous Blood Culture - Final No growth after 5 days. 06/14/24 Unknown Urine Catheterized - Burger Catheter Urine Culture - Final Klebsiella pneumoniae Proteus mirabilis Procedures Date of Service Date of Service: 06/22/24 Progress Note: A&P Assessment and plan (1) Blood loss anemia: Status: Acute Plan 1/ Anemia, may have ischemic colitis related to prolonged hypotension on admission or possible stress gastritis, ulceration--might also be old blood given HGb has been steady around 7 g/dl PLAN: 1/ CT with Po contrast 2/ cont to monitor HGB and transfuse for target hgb 8 or so 3/ hold on EGD and colo for right now, 4/ consider restarting elqiuis if HGb stable and monitor clinically. 5/ low dose PPi Time Spent With Patient Time: Total time managing care of this patient today ____ minutes. Quality Stroke Does the patient have a stroke diagnosis?: No VTE Prior VTE?: No VTE Risk Level:: Medical - moderate - high VTE Device Contraindication: Treatment Not Indicated VTE Drug Contraindication: N/A - Med Ordered
[2024-06-22 15:55] LABS: Glucose, Whole Blood 202 mg/dL (60-115)
[2024-06-22] MEDS: Barium Sulfate Oral (Vanilla) 450 ML ORAL.SUSP PO (17:02)
--- NOTE | 2024-06-22 17:22 | P.PNIM_ITS ---
Subjective Subjective Date of Service: 06/22/24 Interval History: hypernatremia ,possible aspirational pneumonia Review of Systems seems similar h/h also seems similar no new events Physical Exam 2 Vital Signs: Vital Signs: Last Vital Signs Temp 97.0 F 06/22/24 15:47 Pulse 55 06/22/24 15:47 Resp 18 06/22/24 15:47 BP 156/70 H 06/22/24 15:47 Pulse Ox 95 06/22/24 15:47 O2 Del Method Nasal Cannula 06/22/24 15:47 O2 Flow Rate 2 06/22/24 15:47 FiO2 30 06/16/24 12:00 BMI result Body Mass Index 23.9 General: Alert but non communicative, Resp: ernesto rhonchi CVS: S1,S2,RRR GI: +BS, NT, no distention Skin: No rash Neuro: motor grossly intact Psych: appropriate affect Objective Data Active Medications Apixaban (Apixaban 5 Mg Tablet) 5 mg PO BID [facility] Last Admin: 06/22/24 10:25 Dose: Not Given Documented By: MISTI Non-Admin Reason: HOLD PER Atorvastatin Calcium (Atorvastatin Calcium 20 Mg Tablet) 20 mg PO DAILY [facility] Last Admin: 06/22/24 10:23 Dose: 20 mg Documented By: MISTI Bisacodyl (Bisacodyl 10 Mg Supp.Rect) 10 mg MO DAILY PRN PRN Reason: Costipation/If MoM not effective. Chlorhexidine Gluconate (Chlorhexidine Gluc Oral Rinse 15 Ml Mouthwash) 15 ml BUCCAL TID [facility] Last Admin: 06/22/24 15:43 Dose: 15 ml Documented By: MISTI Finasteride (Finasteride 5 Mg Tablet) 5 mg PO DAILY [facility] Last Admin: 06/22/24 10:23 Dose: 5 mg Documented By: MISTI Folic Acid (Folic Acid 1 Mg Tablet) 1 mg PO DAILY [facility] Last Admin: 06/22/24 10:23 Dose: 1 mg Documented By: MISTI Glucose (Glucose Gel 15 Gm Gel..Gram.) 15 gm PO Q15M PRN; Protocol PRN Reason: per Hypoglycemia Standing Ord. Levetiracetam (Keppra) 500 mg in 100 mls @ 400 mls/hr IV Q12H [facility] Last Infusion: 06/22/24 12:22 Dose: Infused Documented By: MISTI Sodium Chloride (Sodium Chloride 0.45 %) 1,000 mls @ 60 mls/hr IVCONT .[id number] [facility] Last Admin: 06/22/24 10:23 Dose: 60 mls/hr Documented By: MISTI Dextrose (D10) 250 mls @ 750 mls/hr IV Q15M PRN; Protocol PRN Reason: per Hypoglycemia Standing Ord. Piperacillin Sod/Tazobactam (Sod 3.375 gm/ Sodium Chloride) 50 mls @ 100 mls/hr IV Q6H [facility] Last Admin: 06/22/24 17:05 Dose: 100 mls/hr Documented By: MISTI Insulin Glargine (Insulin Glargine,Hum.Rec.Anlog 100 Unit/Ml 10 Ml Vial) 12 unit SUBCUT DAILY [facility] Last Admin: 06/22/24 10:24 Dose: 12 unit Documented By: MISTI Insulin Human Lispro (Insulin Lispro 100 Unit/Ml 3 Ml Vial) 0 unit SUBCUT QIDACHS [facility]; Protocol Last Admin: 06/22/24 15:57 Dose: 4 unit Documented By: MISTI Levothyroxine Sodium (Levothyroxine Sodium 100 Mcg Tablet) 100 mcg PO DAILY@0600 [facility] Last Admin: 06/22/24 05:42 Dose: 100 mcg Documented By: DEION Multivitamins/Vitamin C (Multivitamin Tablet) 1 tab PO DAILY [facility] Last Admin: 06/22/24 10:22 Dose: 1 tab Documented By: MISTI Pantoprazole Sodium (Pantoprazole Sodium 40 Mg/10 Ml Vial) 40 mg IVPUSH BID@0630,1630 [facility] Last Admin: 06/22/24 15:43 Dose: 40 mg Documented By: MISTI Sodium Chloride (0.9 % Sodium Chloride Flush 3 Ml Syringe) 3 ml IVFLUSH QSHIFT [facility] Last Admin: 06/22/24 15:43 Dose: 3 ml Documented By: MISTI Sucralfate (Sucralfate 1 Gm Tablet) 1 gm PO TID [facility] Last Admin: 06/22/24 15:44 Dose: 1 gm Documented By: MISTI Vitamin D (Cholecalciferol (Vitamin D3) 25 Mcg Tablet) 50 mcg PO DAILY [facility] Last Admin: 06/22/24 10:23 Dose: 50 mcg Documented By: MISTI Labs 06/22/24 06:11 06/22/24 06:11 Labs: Laboratory Results - last 24 hr 06/21/24 06/21/24 06/22/24 17:34 21:46 06:11 Anion Gap 13 Estim Creat Clear Calc 26.3 Estimated GFR 25 POC Glucose 288 H 265 H Random Glucose 206 H Calcium 9.4 Phosphorus 3.6 Magnesium 2.5 Albumin 3.3 L Nasal Screen MRSA (PCR) Nasal S. aureus Screen Nasal MRSA/S.aureus Interp 06/22/24 06/22/24 06/22/24 07:06 12:01 12:03 Anion Gap Estim Creat Clear Calc Estimated GFR POC Glucose 168 H 133 H 134 H Random Glucose Calcium Phosphorus Magnesium Albumin Nasal Screen MRSA (PCR) Nasal S. aureus Screen Nasal MRSA/S.aureus Interp 06/22/24 06/22/24 12:15 15:51 Anion Gap Estim Creat Clear Calc Estimated GFR POC Glucose 202 H Random Glucose Calcium Phosphorus Magnesium Albumin Nasal Screen MRSA (PCR) NEGATIVE Nasal S. aureus Screen NEGATIVE Nasal MRSA/S.aureus Interp SEE NOTE Assessment and Plan (1) Pulmonary aspiration: Status: Acute Assessment and Plan: 73-year-old gentleman with underlying schizophrenia, dementia, left hemiparesis post CVA admitted with alteration of mental status and hypoxia requiring intubation and ventilatory support and vasopressor use Alteration of mental status/metabolic encephalopath d/t sepsis with underlying schizophrenia, dementia and and lack of decision-making capacity and has court appointment guardian Sepsis d/t Klebsiela ESBL and Proteus, sepsis resolved Blood cultures have been negative nasal mrsa-negative id eval noted -added zosyn to aspirtional pneumonia Septic shock--required vasopressors but resolved. Acute hypoxic respiratory failure related to aspiration pneumnia that required vent support, succesfully extubated on 06/16, respiratory status has improved. -continue Abx as above. -wean off O2 H/o chronic AFIB--previously on Eliquis but has been on hold d/t significant anemia that required transfusion . rate is controlled, not on rate control meds. d/w GI -hold eliquis ,moniter h/h daily h/h seems similar ,added ppi.ct abd r/o added for iscemic colitis Chronic diastolic heart failure--compensated PELON on CKD 4,improved Creatine within baseline Diabetes--with hyperglycemia today d/t TPN, off TNP, blood sugar down. -continue Lantus and SSI Chronic constipation--lactulose PRN, enema PRN Acute blood loss anemia, coagulopathy treated with Vit k, transfused 1 unit of RBC, elquis has been on hold. H/H has been stable, + occult blood, consider gi input before restarting eliquis HypoT--IV levothyroxine, once taking oral consistantly change to PO Seizure d/o Keppra, change to PO tomorrow Schizophrenia--patient on multiple meds including monthly haldol, risperidal, congentin--he has been fairly sedated and therefore these meds have been on hold, reintroduce if becoming agitated HTN--imdur and Norvasc on hold, BP ok HLD--Lipitor Diabetes--Lantus and SSI. Monitor sugars FEN--patient was not very responsive and has been on TPN [employer] rec Puree NDD1 and thin liquid TPN stopped on06/20/24. Full code Need for inpatient : recovering from sepsis, encephalopathy, UTI, aspiration PNA Prophylaxis: Pneumatic compression, famotidine Quality Stroke Does the patient have a stroke diagnosis?: No VTE Prior VTE?: No VTE Risk Level:: Medical - moderate - high VTE Device Contraindication: Treatment Not Indicated VTE Drug Contraindication: N/A - Med Ordered
[2024-06-22 18:43] LABS: Sodium 147 mmol/L (135-145)
[2024-06-22] MEDS: Apixaban 5 MG TABLET PO (20:19)
[2024-06-22 21:07] LABS: Glucose, Whole Blood 177 mg/dL (60-115)
[2024-06-22] MEDS: Dextrose 5 % and 0.45 % NaCl 1,000 ML 60 ML IVCONT (22:06)
[2024-06-23] VITALS (10 sets, daily range): BP systolic 139–165; BP diastolic 58–72; PULSE 56–78; RESP 16–22; TEMP 35.8–36.6; O2SAT 96–99
[2024-06-23] MEDS: Piperacillin Sodium/Tazobactam 3.375 GM in 0.9 % Sodium Chloride 50 ML IV ×5 (00:02→23:53)
[2024-06-23] MEDS: 0.9 % Sodium Chloride Flush 3 ML SYRINGE IVFLUSH ×3 (00:02→23:53)
[2024-06-23] MEDS: levETIRAcetam in NaCl (iso-os) 500 MG/100 ML PIGGYBACK 400 MG IV ×2 (02:05→11:58)
[2024-06-23] MEDS: Levothyroxine Sodium 100 MCG TABLET PO (05:52)
[2024-06-23] MEDS: Pantoprazole Sodium 40 MG/10 ML VIAL IVPUSH ×2 (05:52→16:39)
[2024-06-23 06:54] LABS: Hematocrit 22.5 % (42.0-52.0); Hemoglobin 7.2 g/dl (14.0-18.0)
[2024-06-23 07:07] LABS: Albumin Level 3.1 g/dL (3.5-5.0); Anion Gap 12 (12-20); Blood Urea Nitrogen 104 mg/dL (9-16); Calcium 9.3 mg/dL (8.4-10.2); Carbon Dioxide 25 mmol/L (22-29); Chloride 114 mmol/L (96-108); Creatinine Clr Calc Pharmacy 27.4; Estimated Glomerular Filt Rate 27; Glucose Random 314 mg/dL (60-115); Magnesium 2.2 mg/dL (1.6-2.6); Phosphorus 3.4 mg/dL (2.7-4.5); Potassium 4.6 mmol/L (3.3-5.1); Sodium 146 mmol/L (135-145)
[2024-06-23 07:28] LABS: Glucose, Whole Blood 267 mg/dL (60-115)
[2024-06-23] MEDS: Insulin Lispro 100 UNIT/ML 3 ML VIAL SUBCUT ×3 (08:55→16:38)
[2024-06-23] MEDS: Apixaban 5 MG TABLET PO (08:56)
[2024-06-23] MEDS: Sucralfate 1 GM TABLET PO ×3 (08:56→21:28)
[2024-06-23] MEDS: Cholecalciferol (Vitamin D3) 25 MCG TABLET 50 MCG PO (08:56)
[2024-06-23] MEDS: Folic Acid 1 MG TABLET PO (08:56)
[2024-06-23] MEDS: Atorvastatin Calcium 20 MG TABLET PO (08:56)
[2024-06-23] MEDS: Multivitamin TABLET 1 TAB PO (08:56)
[2024-06-23] MEDS: Finasteride 5 MG TABLET PO (08:56)
[2024-06-23] MEDS: Insulin Glargine,Hum.rec.anlog 100 UNIT/ML 10 ML VIAL 12 UNIT SUBCUT (08:57)
[2024-06-23 10:23] LABS: Folate 13.1 ng/mL (> or = 4.0); Vitamin B12 1669 pg/mL (200-900)
--- NOTE | 2024-06-23 10:35 | P.PNNP_ITS ---
Subjective Subjective Date of Service: 06/23/24 Interval history: Admitted for worsening confusion, treated for UTI Pt remains hypernatremic but improving, started hypotonic fluids at 60mL/hr; sodium continues to gradually improve, most recent 146. Remains non-oliguric. creatinine continues to improve (2.40 this a.m., which is baseline or better). Nonverbal, sleeping today. Events noted. Physical Exam 2 Vital Signs: Vital Signs: Last Vital Signs Temp 97.5 F 06/23/24 07:56 Pulse 57 06/23/24 07:56 Resp 20 06/23/24 07:56 BP 149/67 H 06/23/24 07:56 Pulse Ox 99 06/23/24 07:56 O2 Del Method Nasal Cannula 06/23/24 07:56 O2 Flow Rate 2 06/23/24 07:56 FiO2 30 06/16/24 12:00 BMI result Body Mass Index 23.9 Const: General: comfortable; No acute distress Neck: Neck: Yes supple and Yes no JVD Resp: Effort & Inspection: normal respiratory effort Auscultation: rhonchi Cardio: Palpation: no palpable S3 and no palpable S4 Heart sounds: no rubs GI: Inspection: Yes normal to inspection Palpation (GI): Soft to palpation Auscultation: normal bowel sounds Skin: General skin exam: no petechiae and no purpura Neuro: Other: Nonverbal. Extrem: General: No clubbing and No edema Objective Data Labs 06/23/24 06:18 06/23/24 06:18 Labs: Laboratory Results - last 24 hr 06/22/24 06/22/24 06/22/24 12:01 12:03 12:15 Hgb Hct Sodium Potassium Chloride Carbon Dioxide Anion Gap BUN Creatinine Estim Creat Clear Calc Estimated GFR POC Glucose 133 H 134 H Random Glucose Calcium Phosphorus Magnesium Albumin Vitamin B12 Folate Nasal Screen MRSA (PCR) NEGATIVE Nasal S. aureus Screen NEGATIVE Nasal MRSA/S.aureus Interp SEE NOTE Blood Type Antibody Screen Crossmatch 06/22/24 06/22/24 06/22/24 15:51 18:17 21:02 Hgb Hct Sodium 147 H Potassium Chloride Carbon Dioxide Anion Gap BUN Creatinine Estim Creat Clear Calc Estimated GFR POC Glucose 202 H 177 H Random Glucose Calcium Phosphorus Magnesium Albumin Vitamin B12 Folate Nasal Screen MRSA (PCR) Nasal S. aureus Screen Nasal MRSA/S.aureus Interp Blood Type Antibody Screen Crossmatch 06/23/24 06/23/24 06/23/24 06:18 07:15 09:13 Hgb 7.2 L Hct 22.5 L Sodium 146 H Potassium 4.6 Chloride 114 H Carbon Dioxide 25 Anion Gap 12 BUN 104 H Creatinine 2.40 H Estim Creat Clear Calc 27.4 Estimated GFR 27 POC Glucose 267 H Random Glucose 314 H Calcium 9.3 Phosphorus 3.4 Magnesium 2.2 Albumin 3.1 L Vitamin B12 1669 H Folate 13.1 Nasal Screen MRSA (PCR) Nasal S. aureus Screen Nasal MRSA/S.aureus Interp Blood Type O Positive Antibody Screen NEGATIVE Crossmatch See Detail Microbiology Microbiology Results: Microbiology 06/14/24 11:05 Blood - Venous Blood Culture - Final No growth after 5 days. 06/14/24 11:03 Blood - Venous Blood Culture - Final No growth after 5 days. 06/14/24 Unknown Urine Catheterized - Burger Catheter Urine Culture - Final Klebsiella pneumoniae Proteus mirabilis Procedures Date of Service Date of Service: 06/23/24 Assessment & Plan Assessment and plan (1) Acute renal failure superimposed on chronic kidney disease: Status: Acute Plan PELON on CKD Disproportioante increase in BUN- due to GIB Non oliguria Severe Anemia Hypernatremia Renal function continues to improve, now at baseline. Continue to keep I > O with hypotonic fluids until PO intake improves Supportive care Avoid nephrotoxins Expect recovery Discussed with Dr Cain. Time Spent With Patient Time: Total time managing care of this patient today ____ minutes. Progress Note: Quality Stroke Does the patient have a stroke diagnosis?: No
[2024-06-23 11:21] LABS: Glucose, Whole Blood 300 mg/dL (60-115)
[2024-06-23] MEDS: Scopolamine 1.5 MG PATCH.TD.3 EAR-BEHIND (12:25)
[2024-06-23] MEDS: PEG 3350/Na Sulf,Bicarb,Cl/KCL 4,000 ML SOLN.RECON 4000 ML PO (12:25)
--- NOTE | 2024-06-23 13:33 | MHC.SL.SWA ---
Speech Pathologist Impression: Risk of Aspiration Due to: History of Pneumonia Hx of Recent Extubation Dysphasia Diet Status: Recommend continue on Puree (NDD1) with THIN LIQUIDS by controlled cup sip only, avoid sodas/carbonation, pills crushed in puree. 1-1 Feeding Liquid Consistency and Strategies for Safe Swallow: Liquid Intake Recommendation: Thin Liquid Intake Strategies: Small Sips Solid Food Consistency: Dietary Recommendations: Pureed (NDD1) Additional Modifications to Solid Foods: Oral Medication Intake: Crushed with Puree Please contact the pharmacy regarding appropriate crushable or liquid drug formulations that are available whenever modified delivery is recommended. Compensatory Strategies and Precautions to be Taken for Safe Swallow: Sitting Upright (90 deg) No Straw Liquids from Cup Small Bites and Sips Alternate Liquids/Solids Rate of Ingestion Change Avoid Specific Foods Supervision While Eating and Drinking for Safe Swallow: Total Assistance (1:1) Foods to Avoid: Mixed consistencies Swallowing Recommended Treatments: Compens. Strategy Educat. Recommendation for Speech: Inpatient Speech Therapy Comment: Patient seen at lunch with full assist from the LEAD GENERATION SPECIALIST. Patient asked for soda initially and was given monika burke by straw sip as recommended by LEAD GENERATION SPECIALIST on previous day. Patient took two successive sips by straw, then had spasmodic cough. LEAD GENERATION SPECIALIST transferred the Monika burke to cup, provided a controlled cup sip, with patient burping and coughing after sip. LEAD GENERATION SPECIALIST then disposed of monika burke, provided controlled cup sips of apple juice which patient demonstrated much improved toleration, with timely oral phase and swallow, no clinical signs of aspiration. Patient was given bites of puree, with patient repeatedly opening mouth for more after each swallow. Puree/liquids were periodically alternated. Patient consumed most of his lunch in this manner, tolerated well. Recommend continue on Puree (NDD1) with THIN LIQUIDS by controlled cup sip only, avoid sodas/carbonation, pills crushed in puree. Frequency/Duration: Date Range for Service Req: Timeline to reassess: Escrow Agent Clinican/Clinical Fellow: No Supervisory Statement: I have reviewed and agree with the student/clinical fellow's documentation: N/A Speech Language Pathologist: Marly Billings M.A., CCC-LEAD GENERATION SPECIALIST
[2024-06-23] MEDS: Dextrose 5 % and 0.45 % NaCl 1,000 ML 60 ML IVCONT (14:48)
--- NOTE | 2024-06-23 16:20 | HO.PM.IMPN ---
Subjective Subjective Date of Service: 06/23/24 Interval History: anemia Review of Systems still has some pinkish tinge with stool awake hyponatremia improving Physical Exam Vital Signs: Vital Signs: Last Vital Signs Temp 97.8 F 06/23/24 12:27 Pulse 62 06/23/24 12:27 Resp 20 06/23/24 12:27 BP 141/60 H 06/23/24 12:27 Pulse Ox 99 06/23/24 11:36 O2 Del Method Nasal Cannula 06/23/24 11:36 O2 Flow Rate 2 06/23/24 11:36 FiO2 30 06/16/24 12:00 BMI result Body Mass Index 23.9 General: [place] but non communicative. Resp: ernesto rhonchi CVS: S1,S2,RRR GI: +BS, NT, no distention Skin: No rash Neuro: motor grossly intact Psych: appropriate affect Objective Data Active Medications Apixaban (Apixaban 5 Mg Tablet) 5 mg PO BID [facility] Last Admin: 06/23/24 08:56 Dose: 5 mg Documented By: JOSEPH Atorvastatin Calcium (Atorvastatin Calcium 20 Mg Tablet) 20 mg PO DAILY [facility] Last Admin: 06/23/24 08:56 Dose: 20 mg Documented By: JOSEPH Bisacodyl (Bisacodyl 10 Mg Supp.Rect) 10 mg NE DAILY PRN PRN Reason: Costipation/If MoM not effective. Finasteride (Finasteride 5 Mg Tablet) 5 mg PO DAILY [facility] Last Admin: 06/23/24 08:56 Dose: 5 mg Documented By: JOSEPH Folic Acid (Folic Acid 1 Mg Tablet) 1 mg PO DAILY [facility] Last Admin: 06/23/24 08:56 Dose: 1 mg Documented By: JOSEPH Glucose (Glucose Gel 15 Gm Gel..Gram.) 15 gm PO Q15M PRN; Protocol PRN Reason: per Hypoglycemia Standing Ord. Levetiracetam (Keppra) 500 mg in 100 mls @ 400 mls/hr IV Q12H [facility] Last Infusion: 06/23/24 12:31 Dose: Infused Documented By: JOSEPH Dextrose (D10) 250 mls @ 750 mls/hr IV Q15M PRN; Protocol PRN Reason: per Hypoglycemia Standing Ord. Piperacillin Sod/Tazobactam (Sod 3.375 gm/ Sodium Chloride) 50 mls @ 100 mls/hr IV Q6H [facility] Last Infusion: 06/23/24 13:00 Dose: Infused Documented By: JOSEPH Dextrose/Sodium Chloride (D51/2ns) 1,000 mls @ 60 mls/hr IVCONT .[id number] [facility] Last Admin: 06/23/24 14:48 Dose: 60 mls/hr Documented By: JOSEPH Insulin Glargine (Insulin Glargine,Hum.Rec.Anlog 100 Unit/Ml 10 Ml Vial) 12 unit SUBCUT DAILY [facility] Last Admin: 06/23/24 08:57 Dose: 12 unit Documented By: JOSEPH Insulin Human Lispro (Insulin Lispro 100 Unit/Ml 3 Ml Vial) 0 unit SUBCUT QIDACHS [facility]; Protocol Last Admin: 06/23/24 11:57 Dose: 8 unit Documented By: JOSEPH Levothyroxine Sodium (Levothyroxine Sodium 100 Mcg Tablet) 100 mcg PO DAILY@0600 [facility] Last Admin: 06/23/24 05:52 Dose: 100 mcg Documented By: TIMOTEO Multivitamins/Vitamin C (Multivitamin Tablet) 1 tab PO DAILY [facility] Last Admin: 06/23/24 08:56 Dose: 1 tab Documented By: JOSEPH Pantoprazole Sodium (Pantoprazole Sodium 40 Mg/10 Ml Vial) 40 mg IVPUSH BID@0630,1630 [facility] Last Admin: 06/23/24 05:52 Dose: 40 mg Documented By: TIMOTEO Scopolamine (Scopolamine 1.5 Mg Patch.Td.3) 1.5 mg EAR-BEHIND Q72H [facility] Last Admin: 06/23/24 12:25 Dose: 1.5 mg Documented By: JOSEPH Sodium Chloride (0.9 % Sodium Chloride Flush 3 Ml Syringe) 3 ml IVFLUSH QSHIFT [facility] Last Admin: 06/23/24 08:55 Dose: Not Given Documented By: JOSEPH Non-Admin Reason: IV Running Sucralfate (Sucralfate 1 Gm Tablet) 1 gm PO TID [facility] Last Admin: 06/23/24 08:56 Dose: 1 gm Documented By: JOSEPH Vitamin D (Cholecalciferol (Vitamin D3) 25 Mcg Tablet) 50 mcg PO DAILY [facility] Last Admin: 06/23/24 08:56 Dose: 50 mcg Documented By: JOSEPH Labs 06/23/24 06:18 06/23/24 06:18 Labs: Laboratory Results - last 24 hr 06/22/24 06/23/24 06/23/24 21:02 06:18 07:15 Anion Gap 12 Estim Creat Clear Calc 27.4 Estimated GFR 27 POC Glucose 177 H 267 H Random Glucose 314 H Calcium 9.3 Phosphorus 3.4 Magnesium 2.2 Albumin 3.1 L Vitamin B12 Folate Blood Type Antibody Screen Crossmatch 06/23/24 06/23/24 09:13 11:13 Anion Gap Estim Creat Clear Calc Estimated GFR POC Glucose 300 H Random Glucose Calcium Phosphorus Magnesium Albumin Vitamin B12 1669 H Folate 13.1 Blood Type O Positive Antibody Screen NEGATIVE Crossmatch See Detail Assessment and Plan (1) Pulmonary aspiration: Status: Acute Assessment and Plan: 73-year-old gentleman with underlying schizophrenia, dementia, left hemiparesis post CVA admitted with alteration of mental status and hypoxia requiring intubation and ventilatory support and vasopressor use Alteration of mental status/metabolic encephalopath d/t sepsis with underlying schizophrenia, dementia and and lack of decision-making capacity and has court appointment guardian Sepsis d/t Klebsiela ESBL and Proteus, sepsis resolved Blood cultures have been negative nasal mrsa-negative id eval noted -added zosyn to aspirtional pneumonia Septic shock--required vasopressors but resolved. Acute hypoxic respiratory failure related to aspiration pneumnia that required vent support, succesfully extubated on 06/16, respiratory status has improved. -continue Abx as above. -wean off O2 H/o chronic AFIB--previously on Eliquis but has been on hold d/t significant anemia that required transfusion . rate is controlled, not on rate control meds. d/w GI -hold eliquis ,moniter h/h daily h/h seems similar ,added ppi.ct abd r/o added for iscemic colitis Chronic diastolic heart failure--compensated PELON on CKD 4,improved Creatine within baseline Diabetes--with hyperglycemia today d/t TPN, off TNP, blood sugar down. -continue Lantus and SSI Chronic constipation--lactulose PRN, enema PRN Acute blood loss anemia, coagulopathy treated with Vit k, transfused 1 unit of RBC, elquis has been on hold. H/H has been stable, + occult blood. added another prbc,ppi Gi rec to add goltyley,keep npo past midnight -possible colo loretta HypoT--IV levothyroxine, once taking oral consistantly change to PO Seizure d/o Keppra, change to PO tomorrow Schizophrenia--patient on multiple meds including monthly haldol, risperidal, congentin--he has been fairly sedated and therefore these meds have been on hold, reintroduce if becoming agitated HTN--imdur and Norvasc on hold, BP ok HLD--Lipitor Diabetes--Lantus and SSI. Monitor sugars FEN--patient was not very responsive and has been on TPN [employer]AC[employer]Y rec Puree NDD1 and thin liquid TPN stopped on06/20/24. Full code Need for inpatient : recovering from sepsis, encephalopathy, UTI, aspiration PNA Prophylaxis: Pneumatic compression, famotidine ongoing need -anemia -?lower Gi bleed -h/h monitering ,prbc transfusion , moniter renal funtion/electrolytes Quality Stroke Does the patient have a stroke diagnosis?: No VTE Prior VTE?: No VTE Risk Level:: Medical - moderate - high VTE Device Contraindication: Treatment Not Indicated VTE Drug Contraindication: N/A - Med Ordered
[2024-06-23 16:30] LABS: Glucose, Whole Blood 160 mg/dL (60-115)
[2024-06-23] MEDS: Albumin Human 25 % 100 ML IV ×2 (16:39→21:29)
[2024-06-23] MEDS: Lactated Ringers 1,000 ML 80 ML IVCONT (18:11)
--- NOTE | 2024-06-23 18:44 | PM.EVENT ---
Event Note Date of Service: 06/23/24 Event Note: Spoke with Dr Kimbrough, reviewed CT scan, no colitis but no contrast used. I discussed with Dr Martin about adding patient to schedule for EGD, colo due to concern about restarting eliquis given he still has maroon colored stools. She has kindly agreed to tentatively add him add to her schedule tomorrow. Will give colyte today, would cont with PPi meantime. Time Spent With Patient Time: Total time managing care of this patient today ____ minutes.
[2024-06-23] MEDS: bisacodyL 5 MG TABLET.DR 10 MG PO ×2 (19:58→22:34)
[2024-06-23 20:56] LABS: Glucose, Whole Blood 90 mg/dL (60-115)
[2024-06-24] VITALS (8 sets, daily range): BP systolic 154–185; BP diastolic 58–84; PULSE 50–66; RESP 18–22; TEMP 36–36.7; O2SAT 90–95
[2024-06-24] MEDS: levETIRAcetam in NaCl (iso-os) 500 MG/100 ML PIGGYBACK 400 MG IV ×3 (00:25→23:57)
[2024-06-24] MEDS: Albumin Human 25 % 100 ML IV ×2 (03:39→12:15)
[2024-06-24] MEDS: Piperacillin Sodium/Tazobactam 3.375 GM in 0.9 % Sodium Chloride 50 ML IV ×3 (04:47→20:27)
[2024-06-24] MEDS: Pantoprazole Sodium 40 MG/10 ML VIAL IVPUSH ×2 (05:18→16:02)
[2024-06-24] MEDS: Lactated Ringers 1,000 ML 80 ML IVCONT (05:18)
[2024-06-24] MEDS: Levothyroxine Sodium 100 MCG TABLET PO (05:19)
[2024-06-24 06:52] LABS: Hematocrit 21.7 % (42.0-52.0); Hemoglobin 7.3 g/dl (14.0-18.0); Mean Corpuscular HGB Conc 33.6 g/dl (31.0-36.0); Mean Corpuscular Volume 83.1 fL (80.0-98.0); Mean Platelet Volume 10.2 fL (9.4-12.4); NRBC Pct Auto 0.1 /100WBC (0.0-0.2); Platelet Count 262 X10*3/uL (160-400); Red Blood Count 2.61 X10*6/uL (4.60-5.80); Red Cell Distribution Width 17.1 % (11.0-16.0); White Blood Count 14.3 X10*3/uL (4.8-10.8)
[2024-06-24 07:04] LABS: INTERNATIONAL NORM RATIO 1.3 (0.9-1.1); Prothrombin Time 14.8 SEC (10.9-12.4)
[2024-06-24 07:10] LABS: Albumin Level 3.9 g/dL (3.5-5.0); Anion Gap 13 (12-20); Blood Urea Nitrogen 75 mg/dL (9-16); Calcium 9.5 mg/dL (8.4-10.2); Carbon Dioxide 27 mmol/L (22-29); Chloride 116 mmol/L (96-108); Creatinine Clr Calc Pharmacy 33.1; Estimated Glomerular Filt Rate 33; Glucose Random 69 mg/dL (60-115); Magnesium 2.1 mg/dL (1.6-2.6); Phosphorus 2.7 mg/dL (2.7-4.5); Potassium 4.1 mmol/L (3.3-5.1); Sodium 152 mmol/L (135-145)
[2024-06-24 07:39] LABS: Glucose, Whole Blood 67 mg/dL (60-115)
[2024-06-24] MEDS: Dextrose 10 % 250 ML 750 ML IV (07:59)
[2024-06-24] MEDS: Folic Acid 1 MG TABLET PO (08:06)
[2024-06-24] MEDS: 0.9 % Sodium Chloride Flush 3 ML SYRINGE IVFLUSH ×3 (08:06→23:57)
[2024-06-24] MEDS: Multivitamin TABLET 1 TAB PO (08:06)
[2024-06-24] MEDS: Finasteride 5 MG TABLET PO (08:07)
[2024-06-24] MEDS: Sucralfate 1 GM TABLET PO ×2 (08:07→20:27)
[2024-06-24] MEDS: Atorvastatin Calcium 20 MG TABLET PO (08:07)
[2024-06-24] MEDS: Cholecalciferol (Vitamin D3) 25 MCG TABLET 50 MCG PO (08:07)
--- NOTE | 2024-06-24 08:12 | P.PNIM_ITS ---
Subjective Subjective Date of Service: 06/24/24 Interval History: hypernatremia anemia ? gi bleed Review of Systems seems similar has some brown stools Physical Exam 2 Vital Signs: Vital Signs: Last Vital Signs Temp 98.1 F 06/24/24 07:21 Pulse 58 06/24/24 07:21 Resp 22 H 06/24/24 07:21 BP 162/75 H 06/24/24 07:21 Pulse Ox 94 06/24/24 07:21 O2 Del Method Room Air 06/24/24 07:21 O2 Flow Rate 1 06/24/24 03:33 FiO2 30 06/16/24 12:00 BMI result Body Mass Index 23.9 General: Aawke but non communicative. Resp: ernesto rhonchi CVS: S1,S2,RRR GI: +BS, NT, no distention Skin: No rash Neuro: motor grossly intact Psych: appropriate affect Objective Data Active Medications Atorvastatin Calcium (Atorvastatin Calcium 20 Mg Tablet) 20 mg PO DAILY [facility] Last Admin: 06/24/24 08:07 Dose: 20 mg Documented By: MJ Bisacodyl (Bisacodyl 10 Mg Supp.Rect) 10 mg DC DAILY PRN PRN Reason: Costipation/If MoM not effective. Finasteride (Finasteride 5 Mg Tablet) 5 mg PO DAILY [facility] Last Admin: 06/24/24 08:07 Dose: 5 mg Documented By: MJ Folic Acid (Folic Acid 1 Mg Tablet) 1 mg PO DAILY [facility] Last Admin: 06/24/24 08:06 Dose: 1 mg Documented By: MJ Glucose (Glucose Gel 15 Gm Gel..Gram.) 15 gm PO Q15M PRN; Protocol PRN Reason: per Hypoglycemia Standing Ord. Levetiracetam (Keppra) 500 mg in 100 mls @ 400 mls/hr IV Q12H [facility] Last Infusion: 06/24/24 00:53 Dose: Infused Documented By: ANTOIC Dextrose (D10) 250 mls @ 750 mls/hr IV Q15M PRN; Protocol PRN Reason: per Hypoglycemia Standing Ord. Last Admin: 06/24/24 07:59 Dose: 750 mls/hr Documented By: MJ Piperacillin Sod/Tazobactam (Sod 3.375 gm/ Sodium Chloride) 50 mls @ 100 mls/hr IV Q6H [facility] Last Infusion: 06/24/24 05:23 Dose: Infused Documented By: TONIE Albumin Human (Kedbumin 25 %) 100 mls @ 100 mls/hr IV Q6H [facility]1983 Stop: 06/24/24 11:29 Last Infusion: 06/24/24 04:43 Dose: Infused Documented By: TONIE Lactated Ringer's (Lr) 1,000 mls @ 80 mls/hr IVCONT .[id number] [facility] Last Admin: 06/24/24 05:18 Dose: 80 mls/hr Documented By: TONIE Insulin Glargine (Insulin Glargine,Hum.Rec.Anlog 100 Unit/Ml 10 Ml Vial) 12 unit SUBCUT DAILY [facility] Last Admin: 06/24/24 07:51 Dose: Not Given Documented By: MJ Non-Admin Reason: No Insulin Coverage Insulin Human Lispro (Insulin Lispro 100 Unit/Ml 3 Ml Vial) 0 unit SUBCUT QIDACHS [facility], [facility]; Protocol Last Admin: 06/24/24 07:51 Dose: Not Given Documented By: MJ Non-Admin Reason: No Insulin Coverage Levothyroxine Sodium (Levothyroxine Sodium 100 Mcg Tablet) 100 mcg PO DAILY@0600 [facility] Last Admin: 06/24/24 05:19 Dose: 100 mcg Documented By: TONIE Multivitamins/Vitamin C (Multivitamin Tablet) 1 tab PO DAILY [facility] Last Admin: 06/24/24 08:06 Dose: 1 tab Documented By: MJ Pantoprazole Sodium (Pantoprazole Sodium 40 Mg/10 Ml Vial) 40 mg IVPUSH BID@0630,1630 [facility]1983 Last Admin: 06/24/24 05:18 Dose: 40 mg Documented By: TONIE Scopolamine (Scopolamine 1.5 Mg Patch.Td.3) 1.5 mg EAR-BEHIND Q72H [facility]1983 Last Admin: 06/23/24 12:25 Dose: 1.5 mg Documented By: JOSEPH Sodium Chloride (0.9 % Sodium Chloride Flush 3 Ml Syringe) 3 ml IVFLUSH QSHIFT [facility]1983 Last Admin: 06/24/24 08:06 Dose: 3 ml Documented By: MJ Sucralfate (Sucralfate 1 Gm Tablet) 1 gm PO TID [facility] Last Admin: 06/24/24 08:07 Dose: 1 gm Documented By: MJ Vitamin D (Cholecalciferol (Vitamin D3) 25 Mcg Tablet) 50 mcg PO DAILY [facility] Last Admin: 06/24/24 08:07 Dose: 50 mcg Documented By: MJ Labs 06/24/24 06:03 06/24/24 06:03 Labs: Laboratory Results - last 24 hr 06/23/24 06/23/24 06/23/24 09:13 11:13 16:25 MCV MCH MCHC RDW Plt Count MPV Absolute Nucleated RBC Nucleated RBC % (auto) PT INR Anion Gap Estim Creat Clear Calc Estimated GFR POC Glucose 300 H 160 H Random Glucose Calcium Phosphorus Magnesium Albumin Vitamin B12 1669 H Folate 13.1 Blood Type O Positive Antibody Screen NEGATIVE Crossmatch See Detail 06/23/24 06/24/24 06/24/24 20:50 06:03 07:30 MCV 83.1 MCH 28.0 MCHC 33.6 RDW 17.1 H Plt Count 262 D MPV 10.2 Absolute Nucleated RBC 0.020 H Nucleated RBC % (auto) 0.1 PT 14.8 H INR 1.3 H Anion Gap 13 Estim Creat Clear Calc 33.1 Estimated GFR 33 POC Glucose 90 67 Random Glucose 69 Calcium 9.5 Phosphorus 2.7 Magnesium 2.1 Albumin 3.9 Vitamin B12 Folate Blood Type Antibody Screen Crossmatch Assessment and Plan (1) Pulmonary aspiration: Status: Acute Assessment and Plan: 73-year-old gentleman with underlying schizophrenia, dementia, left hemiparesis post CVA admitted with alteration of mental status and hypoxia requiring intubation and ventilatory support and vasopressor use Alteration of mental status/metabolic encephalopath d/t sepsis with underlying schizophrenia, dementia and and lack of decision-making capacity and has court appointment guardian Sepsis d/t Klebsiela ESBL and Proteus, sepsis resolved Blood cultures have been negative nasal mrsa-negative id eval noted -added zosyn to aspirtional pneumonia Septic shock--required vasopressors but resolved. Acute hypoxic respiratory failure related to aspiration pneumnia that required vent support, succesfully extubated on 06/16, respiratory status has improved. -continue Abx as above. -wean off O2 hypernatremia slowly trending up sec to npo added d51/2 ns moniter sodium closely H/o chronic AFIB--previously on Eliquis but has been on hold d/t significant anemia that required transfusion . rate is controlled, not on rate control meds. d/w GI -hold eliquis ,moniter h/h daily ct abd r/o added for iscemic colitis plan: h/h seems similar , ppi. 1 prbc yesterday 1 prbc added today moniter cbc , npo on thursday for moday possible colonscopy. Chronic diastolic heart failure--compensated PELON on CKD 4,improved Creatine within baseline Diabetes-with flacuatin fs hold Lantus and adjusted SSI. Chronic constipation--lactulose PRN, enema PRN Acute blood loss anemia, coagulopathy treated with Vit k, transfused 1 unit of RBC, elquis has been on hold. H/H has been stable, + occult blood. added another prbc,ppi Gi rec to add golty[place],keep npo past midnight -possible colo loretta HypoT--IV levothyroxine, once taking oral consistantly change to PO Seizure d/o Keppra, change to PO tomorrow Schizophrenia--patient on multiple meds including monthly haldol, risperidal, congentin--he has been fairly sedated and therefore these meds have been on hold, reintroduce if becoming agitated HTN--imdur and Norvasc on hold, BP ok HLD--Lipitor Diabetes--Lantus and SSI. Monitor sugars FEN--patient was not very responsive and has been on TPN CAD ADMINISTRATOR rec Puree NDD1 and thin liquid TPN stopped on06/20/24. Full code Need for inpatient : recovering from sepsis, encephalopathy, UTI, aspiration PNA Prophylaxis: Pneumatic compression, famotidine ongoing need -anemia -?lower Gi bleed -h/h monitering ,prbc transfusion , moniter renal funtion/electrolytes. his daughter updated in detail. Quality Stroke Does the patient have a stroke diagnosis?: No VTE Prior VTE?: No VTE Risk Level:: Medical - moderate - high VTE Device Contraindication: Treatment Not Indicated VTE Drug Contraindication: N/A - Med Ordered
--- NOTE | 2024-06-24 08:38 | MHC.SLORD ---
Addendum entered and electronically signed by Alfreda Desai MA, CCC-RN CHARGE 06/27/24 15:39: Patient remains NPO for a procedure. No PO trials given this date. Original Note: Speech Language Pathology Order Status: Patient is NPO for EGD today, thus no PO trials were given this date. After procedure once cleared to re-start PO, continue RN CHARGE recommendation for pureed diet (NDD1) and thin liquids, pills crushed in puree- This is patient's baseline at [facility]. He continues to need 1:1 feeding.
[2024-06-24] MEDS: Dextrose 5 % and 0.45 % NaCl 1,000 ML 80 ML IVCONT (10:00)
--- NOTE | 2024-06-24 10:23 | P.PNNP_ITS ---
Subjective Subjective Date of Service: 06/24/24 Interval history: Admitted for worsening confusion, treated for UTI Pt had increased hyponatremia from 146 yesterday to 152 this morning, most likely related to dehydration/low PO intake fluids were increased to 80mL/hr D5W and hypotonic saline Remains non-oliguric. creatinine continues to improve (1.99 this a.m.). Nonverbal, awake/alert this a.m. No events noted overnight per RN at bedside. Physical Exam 2 Vital Signs: Vital Signs: Last Vital Signs Temp 98.1 F 06/24/24 07:21 Pulse 58 06/24/24 07:21 Resp 22 H 06/24/24 07:21 BP 162/75 H 06/24/24 07:21 Pulse Ox 94 06/24/24 07:21 O2 Del Method Room Air 06/24/24 07:21 O2 Flow Rate 1 06/24/24 03:33 FiO2 30 06/16/24 12:00 BMI result Body Mass Index 23.9 Const: General: comfortable; No acute distress Neck: Neck: Yes supple and Yes no JVD Resp: Effort & Inspection: normal respiratory effort Auscultation: rhonchi Cardio: Palpation: no palpable S3 and no palpable S4 Heart sounds: no rubs GI: Inspection: Yes normal to inspection Palpation (GI): Soft to palpation Auscultation: normal bowel sounds Skin: General skin exam: no petechiae and no purpura Neuro: Other: Nonverbal. Extrem: General: No clubbing and No edema Objective Data Labs 06/24/24 06:03 06/24/24 06:03 Labs: Laboratory Results - last 24 hr 06/23/24 06/23/24 06/23/24 09:13 11:13 16:25 WBC RBC Hgb Hct MCV MCH MCHC RDW Plt Count MPV Absolute Nucleated RBC Nucleated RBC % (auto) PT INR Sodium Potassium Chloride Carbon Dioxide Anion Gap BUN Creatinine Estim Creat Clear Calc Estimated GFR POC Glucose 300 H 160 H Random Glucose Calcium Phosphorus Magnesium Albumin Vitamin B12 1669 H Folate 13.1 Blood Type O Positive Antibody Screen NEGATIVE Crossmatch See Detail 06/23/24 06/24/24 06/24/24 20:50 06:03 07:30 WBC 14.3 H RBC 2.61 L Hgb 7.3 L Hct 21.7 L MCV 83.1 MCH 28.0 MCHC 33.6 RDW 17.1 H Plt Count 262 D MPV 10.2 Absolute Nucleated RBC 0.020 H Nucleated RBC % (auto) 0.1 PT 14.8 H INR 1.3 H Sodium 152 H Potassium 4.1 Chloride 116 H Carbon Dioxide 27 Anion Gap 13 BUN 75 H Creatinine 1.99 H Estim Creat Clear Calc 33.1 Estimated GFR 33 POC Glucose 90 67 Random Glucose 69 Calcium 9.5 Phosphorus 2.7 Magnesium 2.1 Albumin 3.9 Vitamin B12 Folate Blood Type Antibody Screen Crossmatch Microbiology Microbiology Results: Microbiology 06/14/24 11:05 Blood - Venous Blood Culture - Final No growth after 5 days. 06/14/24 11:03 Blood - Venous Blood Culture - Final No growth after 5 days. 06/14/24 Unknown Urine Catheterized - Burger Catheter Urine Culture - Final Klebsiella pneumoniae Proteus mirabilis Procedures Date of Service Date of Service: 06/24/24 Assessment & Plan Assessment and plan (1) Acute renal failure superimposed on chronic kidney disease: Status: Acute Plan PELON on CKD, resolved Disproportioante increase in BUN- due to GIB Non oliguria Severe Anemia Hypernatremia worsening, likely due to decreased PO intake recommend changing from D5W with half normal saline at 80mL/hr to D5W 80mL/hr Renal function continues to improve, now at baseline. Continue to keep I > O with hypotonic fluids until PO intake improves Supportive care Avoid nephrotoxins Expect recovery Discussed with Dr Cain. Time Spent With Patient Time: Total time managing care of this patient today ____ minutes. Progress Note: Quality Stroke Does the patient have a stroke diagnosis?: No
[2024-06-24 11:11] LABS: Glucose, Whole Blood 120 mg/dL (60-115)
--- NOTE | 2024-06-24 11:24 | MHC.CM.PN ---
Per rounds, pt is not yet ready for DC, he requires further testing for question of GI bleed. DCP is for him to return to [facility] where he resides fpc.
[2024-06-24] MEDS: Sodium Phosphate,Mono-Dibasic 133 ML ENEMA PR (12:07)
--- NOTE | 2024-06-24 13:24 | MHC.CLN ---
F/U PT WITH INCREASED NUTRITION RISK R/T PRESSURE INJURIES CURRENTLY NPO FOR PROCEDURE PREVIOUS PO INTAKE 50-100% WHEN DIET TO ADVANCE, RE-START ENSURE MAX TID TO FURTHER PROMOTE WOUND HEALING SUPPLEMENT TO PROVIDE 450KCALS, 90G PROTEIN FOLLOWING FOR DIET ADVANCEMENT
[2024-06-24 16:24] LABS: Glucose, Whole Blood 86 mg/dL (60-115)
[2024-06-24 19:27] LABS: Glucose, Whole Blood 103 mg/dL (60-115)
[2024-06-25] VITALS (11 sets, daily range): BP systolic 136–190; BP diastolic 57–78; PULSE 46–59; RESP 18–20; TEMP 36.1–36.6; O2SAT 94–99
[2024-06-25] MEDS: amLODIPine Besylate 2.5 MG TABLET 7.5 MG PO (00:43)
[2024-06-25] MEDS: Piperacillin Sodium/Tazobactam 3.375 GM in 0.9 % Sodium Chloride 50 ML IV ×4 (01:27→18:34)
[2024-06-25] MEDS: Pantoprazole Sodium 40 MG/10 ML VIAL IVPUSH ×2 (06:24→16:47)
[2024-06-25] MEDS: Levothyroxine Sodium 100 MCG TABLET PO (06:25)
[2024-06-25 07:35] LABS: Hematocrit 26.7 % (42.0-52.0); Hemoglobin 8.8 g/dl (14.0-18.0)
[2024-06-25 07:47] LABS: Anion Gap 14 (12-20); Blood Urea Nitrogen 59 mg/dL (9-16); Calcium 9.4 mg/dL (8.4-10.2); Carbon Dioxide 26 mmol/L (22-29); Chloride 113 mmol/L (96-108); Creatinine Clr Calc Pharmacy 30.7; Estimated Glomerular Filt Rate 30; Glucose Random 154 mg/dL (60-115); Magnesium 1.9 mg/dL (1.6-2.6); Potassium 3.9 mmol/L (3.3-5.1); Sodium 149 mmol/L (135-145)
[2024-06-25 07:48] LABS: Glucose, Whole Blood 163 mg/dL (60-115)
[2024-06-25] MEDS: Isosorbide Mononitrate 30 MG TAB.ER.24H PO (10:52)
[2024-06-25] MEDS: Sucralfate 1 GM TABLET PO ×3 (10:52→20:50)
[2024-06-25] MEDS: Multivitamin TABLET 1 TAB PO (10:52)
[2024-06-25] MEDS: Atorvastatin Calcium 20 MG TABLET PO (10:53)
[2024-06-25] MEDS: Finasteride 5 MG TABLET PO (10:53)
[2024-06-25] MEDS: Folic Acid 1 MG TABLET PO (10:53)
[2024-06-25] MEDS: amLODIPine Besylate 2.5 MG TABLET PO (10:53)
[2024-06-25] MEDS: 0.9 % Sodium Chloride Flush 3 ML SYRINGE IVFLUSH ×2 (10:53→16:54)
[2024-06-25] MEDS: Cholecalciferol (Vitamin D3) 25 MCG TABLET 50 MCG PO (10:53)
[2024-06-25 11:12] LABS: Glucose, Whole Blood 122 mg/dL (60-115)
[2024-06-25] MEDS: Potassium Chloride Packet 20 MEQ PACKET PO (11:21)
[2024-06-25] MEDS: levETIRAcetam in NaCl (iso-os) 500 MG/100 ML PIGGYBACK 400 MG IV (12:37)
--- NOTE | 2024-06-25 13:41 | P.PNIM_ITS ---
Subjective Subjective Date of Service: 06/25/24 Interval History: hypernatremia ,uncontrolled htn gib Review of Systems no new gross bleeding ovenright seems more awake h/h better after transfusion tele-no new pvc episodes. Physical Exam 2 Vital Signs: Vital Signs: Last Vital Signs Temp 97.2 F 06/25/24 11:30 Pulse 46 L 06/25/24 11:30 Resp 20 06/25/24 11:30 BP 177/78 H 06/25/24 10:52 Pulse Ox 96 06/25/24 11:30 O2 Del Method Nasal Cannula 06/25/24 11:30 O2 Flow Rate 2 06/25/24 11:30 FiO2 30 06/16/24 12:00 BMI result Body Mass Index 23.9 General: Aawke but non communicative. Resp: ernesto rhonchi CVS: S1,S2,RRR GI: +BS, NT, no distention Skin: No rash Neuro: motor grossly intact Psych: appropriate affect Objective Data Active Medications Amlodipine Besylate (Amlodipine Besylate 2.5 Mg Tablet) 7.5 mg PO DAILY [facility]; Protocol Last Admin: 06/25/24 00:43 Dose: 7.5 mg Documented By: TIMOTEO Atorvastatin Calcium (Atorvastatin Calcium 20 Mg Tablet) 20 mg PO DAILY [facility] Last Admin: 06/25/24 10:53 Dose: 20 mg Documented By: PRERNA Bisacodyl (Bisacodyl 10 Mg Supp.Rect) 10 mg VT DAILY PRN PRN Reason: Costipation/If MoM not effective. Finasteride (Finasteride 5 Mg Tablet) 5 mg PO DAILY [facility] Last Admin: 06/25/24 10:53 Dose: 5 mg Documented By: PRERNA Folic Acid (Folic Acid 1 Mg Tablet) 1 mg PO DAILY [facility] Last Admin: 06/25/24 10:53 Dose: 1 mg Documented By: PRERNA Glucose (Glucose Gel 15 Gm Gel..Gram.) 15 gm PO Q15M PRN; Protocol PRN Reason: per Hypoglycemia Standing Ord. Levetiracetam (Keppra) 500 mg in 100 mls @ 400 mls/hr IV Q12H [facility] Last Infusion: 06/25/24 12:52 Dose: Infused Documented By: PRERNA Dextrose (D10) 250 mls @ 750 mls/hr IV Q15M PRN; Protocol PRN Reason: per Hypoglycemia Standing Ord. Last Infusion: 06/24/24 08:50 Dose: Infused Documented By: MJ Piperacillin Sod/Tazobactam (Sod 3.375 gm/ Sodium Chloride) 50 mls @ 100 mls/hr IV Q6H [facility] Last Infusion: 06/25/24 11:50 Dose: Infused Documented By: PRERNA Insulin Human Lispro (Insulin Lispro 100 Unit/Ml 3 Ml Vial) 0 unit SUBCUT QIDACHS [facility]; Protocol Last Admin: 06/25/24 11:29 Dose: Not Given Documented By: PRERNA Non-Admin Reason: No Insulin Coverage Isosorbide Mononitrate (Isosorbide Mononitrate 30 Mg Tab.Er.24h) 30 mg PO DAILY [facility]; Protocol Last Admin: 06/25/24 10:52 Dose: 30 mg Documented By: PRERNA Levothyroxine Sodium (Levothyroxine Sodium 100 Mcg Tablet) 100 mcg PO DAILY@0600 [facility] Last Admin: 06/25/24 06:25 Dose: 100 mcg Documented By: TIMOTEO Magnesium Oxide (Magnesium Oxide 400 Mg Tablet) 400 mg PO BIDPC [facility] Multivitamins/Vitamin C (Multivitamin Tablet) 1 tab PO DAILY [facility] Last Admin: 06/25/24 10:52 Dose: 1 tab Documented By: PRERNA Pantoprazole Sodium (Pantoprazole Sodium 40 Mg/10 Ml Vial) 40 mg IVPUSH BID@0630,1630 [facility] Last Admin: 06/25/24 06:24 Dose: 40 mg Documented By: TIMOTEO Scopolamine (Scopolamine 1.5 Mg Patch.Td.3) 1.5 mg EAR-BEHIND Q72H [facility] Last Admin: 06/23/24 12:25 Dose: 1.5 mg Documented By: JOSEPH Sodium Biphosphate/Sodium Phosphate (Sodium Phosphate,Baca-Dibasic 133 Ml Enema) 133 ml VT ONCE PRN PRN Reason: Pre-Op Surgical Prep Last Admin: 06/24/24 12:07 Dose: 133 ml Documented By: MJ Sodium Biphosphate/Sodium Phosphate (Sodium Phosphate,Baca-Dibasic 133 Ml Enema) 133 ml VT ONCE PRN PRN Reason: Pre-Op Surgical Prep Sodium Chloride (0.9 % Sodium Chloride Flush 3 Ml Syringe) 3 ml IVFLUSH QSHIFT [facility] Last Admin: 06/25/24 10:53 Dose: 3 ml Documented By: PRERNA Sucralfate (Sucralfate 1 Gm Tablet) 1 gm PO TID [facility] Last Admin: 06/25/24 10:52 Dose: 1 gm Documented By: PRERNA Vitamin D (Cholecalciferol (Vitamin D3) 25 Mcg Tablet) 50 mcg PO DAILY [facility] Last Admin: 06/25/24 10:53 Dose: 50 mcg Documented By: PRERNA Labs 06/25/24 06:53 06/25/24 06:53 Labs: Laboratory Results - last 24 hr 06/23/24 06/24/24 06/24/24 09:13 16:20 19:22 Anion Gap Estim Creat Clear Calc Estimated GFR POC Glucose 86 103 Random Glucose Calcium Magnesium Blood Type O Positive Antibody Screen NEGATIVE Crossmatch See Detail 06/25/24 06/25/24 06/25/24 06:53 07:40 11:07 Anion Gap 14 Estim Creat Clear Calc 30.7 Estimated GFR 30 POC Glucose 163 H 122 H Random Glucose 154 H Calcium 9.4 Magnesium 1.9 Blood Type Antibody Screen Crossmatch Assessment and Plan (1) Pulmonary aspiration: Status: Acute Assessment and Plan: 73-year-old gentleman with underlying schizophrenia, dementia, left hemiparesis post CVA admitted with alteration of mental status and hypoxia requiring intubation and ventilatory support and vasopressor use Alteration of mental status/metabolic encephalopath d/t sepsis with underlying schizophrenia, dementia and and lack of decision-making capacity and has court appointment guardian Sepsis d/t Klebsiela ESBL and Proteus, sepsis resolved Blood cultures have been negative nasal mrsa-negative id eval noted -on zosyn(06/22/24)due to aspirtional pneumonia Septic shock--required vasopressors but resolved. Acute hypoxic respiratory failure related to aspiration pneumnia that required vent support, succesfully extubated on 06/16, respiratory status has improved. -continue Abx as above. -wean off O2 hypernatremia imrpoving ,off d51/2 ns moniter sodium closely-will try po free water 300 ml4hr moniter sodium closely. pvc's episode -8 beats yetserday elctrolytes -k: 3.9 , mag 1.9 added replacements for above to keep potassium above 4 and mag above 2. H/o chronic AFIB--previously on Eliquis but has been on hold d/t significant anemia that required transfusion . rate is controlled, not on rate control meds. d/w GI -hold eliquis ,moniter h/h daily ct abd r/o added for iscemic colitis plan: h/h seems similar , ppi. 1 prbc (06/23 abd 06/24) respectively h/h in 8.8 range moniter cbc , npo on thursday for moday possible colonscopy. Chronic diastolic heart failure--compensated PELON on CKD 4,improved Creatine within baseline Diabetes-with flacuatin fs hold Lantus and adjusted SSI. Chronic constipation--lactulose PRN, enema PRN Acute blood loss anemia, coagulopathy treated with Vit k, transfused 1 unit of RBC, elquis has been on hold. H/H has been stable, + occult blood. added another prbc,ppi Gi rec to add [place],keep npo past midnight -possible colo loretta HypoT--IV levothyroxine, once taking oral consistantly change to PO Seizure d/o Keppra, change to PO tomorrow Schizophrenia--patient on multiple meds including monthly haldol, risperidal, congentin--he has been fairly sedated and therefore these meds have been on hold, reintroduce if becoming agitated HTN--imdur and Norvasc on hold, BP ok HLD--Lipitor Diabetes--Lantus and SSI. 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 Full code Need for inpatient : recovering from sepsis, encephalopathy, UTI, aspiration PNA Prophylaxis: Pneumatic compression, famotidine ongoing need -anemia -?lower Gi bleed -h/h monitering ,prbc transfusion , moniter renal funtion/electrolytes. his daughter updated in detail. Quality Stroke Does the patient have a stroke diagnosis?: No VTE Prior VTE?: No VTE Risk Level:: Medical - moderate - high VTE Device Contraindication: Treatment Not Indicated VTE Drug Contraindication: N/A - Med Ordered
[2024-06-25 16:00] LABS: Glucose, Whole Blood 182 mg/dL (60-115)
[2024-06-25] MEDS: Magnesium Oxide 400 MG TABLET PO (16:47)
[2024-06-25 21:27] LABS: Glucose, Whole Blood 202 mg/dL (60-115)
[2024-06-25] MEDS: Dextrose 5 % and 0.45 % NaCl 1,000 ML 60 ML IVCONT (22:18)
[2024-06-25] MEDS: Insulin Lispro 100 UNIT/ML 3 ML VIAL SUBCUT (22:18)
[2024-06-26] MEDS: Piperacillin Sodium/Tazobactam 3.375 GM in 0.9 % Sodium Chloride 50 ML IV ×5 (00:36→23:24)
[2024-06-26] MEDS: 0.9 % Sodium Chloride Flush 3 ML SYRINGE IVFLUSH ×4 (00:45→23:05)
[2024-06-26] MEDS: levETIRAcetam in NaCl (iso-os) 500 MG/100 ML PIGGYBACK 100 MG IV ×2 (00:45→13:20)
[2024-06-26 03:34] VITALS: BP 165/78; PULSE 52; RESP 20; TEMP 36.2; O2SAT 98
[2024-06-26] MEDS: Pantoprazole Sodium 40 MG/10 ML VIAL IVPUSH ×2 (06:05→17:32)
[2024-06-26] MEDS: Levothyroxine Sodium 100 MCG TABLET PO (06:05)
[2024-06-26 06:54] LABS: Anion Gap 14 (12-20); Blood Urea Nitrogen 60 mg/dL (9-16); Calcium 9.5 mg/dL (8.4-10.2); Carbon Dioxide 26 mmol/L (22-29); Chloride 114 mmol/L (96-108); Creatinine Clr Calc Pharmacy 30.9; Estimated Glomerular Filt Rate 30; Glucose Random 148 mg/dL (60-115); Sodium 150 mmol/L (135-145)
[2024-06-26 07:30] LABS: Glucose, Whole Blood 134 mg/dL (60-115)
[2024-06-26 07:52] VITALS: BP 165/96; PULSE 52; RESP 20; TEMP 36.8; O2SAT 96
[2024-06-26 08:40] LABS: Hematocrit 25.9 % (42.0-52.0); Hemoglobin 8.5 g/dl (14.0-18.0)
[2024-06-26] MEDS: Sucralfate 1 GM TABLET PO ×3 (08:59→23:05)
[2024-06-26] MEDS: Atorvastatin Calcium 20 MG TABLET PO (09:00)
[2024-06-26] MEDS: Isosorbide Mononitrate 30 MG TAB.ER.24H PO (09:00)
[2024-06-26] MEDS: Finasteride 5 MG TABLET PO (09:00)
[2024-06-26] MEDS: amLODIPine Besylate 10 MG TABLET PO (09:00)
[2024-06-26] MEDS: Magnesium Oxide 400 MG TABLET PO ×2 (09:00→17:32)
[2024-06-26] MEDS: Cholecalciferol (Vitamin D3) 25 MCG TABLET 50 MCG PO (09:00)
[2024-06-26] MEDS: Multivitamin TABLET 1 TAB PO (09:01)
[2024-06-26] MEDS: Folic Acid 1 MG TABLET PO (09:01)
[2024-06-26 11:19] LABS: Glucose, Whole Blood 216 mg/dL (60-115)
[2024-06-26] MEDS: Insulin Lispro 100 UNIT/ML 3 ML VIAL SUBCUT ×2 (11:52→23:04)
[2024-06-26 12:00] VITALS: BP 176/85; PULSE 56; RESP 20; TEMP 36.7; O2SAT 97
[2024-06-26] MEDS: Scopolamine 1.5 MG PATCH.TD.3 EAR-BEHIND (12:00)
--- NOTE | 2024-06-26 14:41 | HO.PM.IMPN ---
Subjective Subjective Date of Service: 06/26/24 Interval History: hyponatremia , anemia Review of Systems awake , responds to his name no new events Physical Exam Vital Signs: Vital Signs: Last Vital Signs Temp 98.1 F 06/26/24 12:00 Pulse 56 06/26/24 12:00 Resp 20 06/26/24 12:00 BP 176/85 H 06/26/24 12:00 Pulse Ox 97 06/26/24 12:00 O2 Del Method Nasal Cannula 06/26/24 12:00 O2 Flow Rate 2 06/26/24 12:00 FiO2 30 06/16/24 12:00 BMI result Body Mass Index 23.9 General: Aawke but non communicative. Resp: air entry seems fair, seems diminished at bases. CVS: S1,S2,RRR GI: +BS, NT, no distention Skin: No rash Neuro: motor grossly intact Psych: appropriate affect Objective Data Active Medications Amlodipine Besylate (Amlodipine Besylate 10 Mg Tablet) 10 mg PO DAILY [facility]; Protocol Last Admin: 06/26/24 09:00 Dose: 10 mg Documented By: CUCA Atorvastatin Calcium (Atorvastatin Calcium 20 Mg Tablet) 20 mg PO DAILY [facility] Last Admin: 06/26/24 09:00 Dose: 20 mg Documented By: CUCA Bisacodyl (Bisacodyl 10 Mg Supp.Rect) 10 mg [place] DAILY PRN PRN Reason: Costipation/If MoM not effective. Finasteride (Finasteride 5 Mg Tablet) 5 mg PO DAILY [facility] Last Admin: 06/26/24 09:00 Dose: 5 mg Documented By: CUCA Folic Acid (Folic Acid 1 Mg Tablet) 1 mg PO DAILY [facility] Last Admin: 06/26/24 09:01 Dose: 1 mg Documented By: CUCA Glucose (Glucose Gel 15 Gm Gel..Gram.) 15 gm PO Q15M PRN; Protocol PRN Reason: per Hypoglycemia Standing Ord. Hydralazine HCl (Hydralazine Hcl 20 Mg/Ml Vial) 5 mg IVPUSH Q6H PRN; Protocol PRN Reason: htn Hydralazine HCl (Hydralazine Hcl 10 Mg Tablet) 10 mg PO TID [facility]; Protocol Levetiracetam (Keppra) 500 mg in 100 mls @ 400 mls/hr IV Q12H [facility] Last Infusion: 06/26/24 14:21 Dose: Infused Documented By: CUCA Dextrose (D10) 250 mls @ 750 mls/hr IV Q15M PRN; Protocol PRN Reason: per Hypoglycemia Standing Ord. Last Infusion: 06/24/24 08:50 Dose: Infused Documented By: MJ Piperacillin Sod/Tazobactam (Sod 3.375 gm/ Sodium Chloride) 50 mls @ 100 mls/hr IV Q6H [facility] Last Infusion: 06/26/24 12:24 Dose: Infused Documented By: CUCA Dextrose (D5w) 1,000 mls @ 75 mls/hr IVCONT .[id number] [facility] Insulin Human Lispro (Insulin Lispro 100 Unit/Ml 3 Ml Vial) 0 unit SUBCUT QIDACHS [facility]; Protocol Last Admin: 06/26/24 11:52 Dose: 2 unit Documented By: CUCA Isosorbide Mononitrate (Isosorbide Mononitrate 30 Mg Tab.Er.24h) 30 mg PO DAILY [facility]; Protocol Last Admin: 06/26/24 09:00 Dose: 30 mg Documented By: CUCA Levothyroxine Sodium (Levothyroxine Sodium 100 Mcg Tablet) 100 mcg PO DAILY@0600 [facility] Last Admin: 06/26/24 06:05 Dose: 100 mcg Documented By: TEODORA Magnesium Oxide (Magnesium Oxide 400 Mg Tablet) 400 mg PO BIDPC [facility] Last Admin: 06/26/24 09:00 Dose: 400 mg Documented By: CUCA Multivitamins/Vitamin C (Multivitamin Tablet) 1 tab PO DAILY [facility] Last Admin: 06/26/24 09:01 Dose: 1 tab Documented By: CUCA Pantoprazole Sodium (Pantoprazole Sodium 40 Mg/10 Ml Vial) 40 mg IVPUSH BID@0630,1630 [facility] Last Admin: 06/26/24 06:05 Dose: 40 mg Documented By: TEODORA Scopolamine (Scopolamine 1.5 Mg Patch.Td.3) 1.5 mg EAR-BEHIND Q72H [facility] Last Admin: 06/26/24 12:00 Dose: 1.5 mg Documented By: CUCA Sodium Biphosphate/Sodium Phosphate (Sodium Phosphate,Garden-Dibasic 133 Ml Enema) 133 ml WI ONCE PRN PRN Reason: Pre-Op Surgical Prep Last Admin: 06/24/24 12:07 Dose: 133 ml Documented By: MJ Sodium Biphosphate/Sodium Phosphate (Sodium Phosphate,Garden-Dibasic 133 Ml Enema) 133 ml WI ONCE PRN PRN Reason: Pre-Op Surgical Prep Sodium Chloride (0.9 % Sodium Chloride Flush 3 Ml Syringe) 3 ml IVFLUSH QSHIFT [facility] Last Admin: 06/26/24 09:01 Dose: 3 ml Documented By: CUCA Sucralfate (Sucralfate 1 Gm Tablet) 1 gm PO TID [facility] Last Admin: 06/26/24 08:59 Dose: 1 gm Documented By: CUCA Vitamin D (Cholecalciferol (Vitamin D3) 25 Mcg Tablet) 50 mcg PO DAILY [facility] Last Admin: 06/26/24 09:00 Dose: 50 mcg Documented By: CUCA Labs 06/26/24 08:25 06/26/24 06:16 Labs: Laboratory Results - last 24 hr 06/25/24 06/25/24 06/26/24 15:55 21:21 06:16 Anion Gap 14 Estim Creat Clear Calc 30.9 Estimated GFR 30 POC Glucose 182 H 202 H Random Glucose 148 H Calcium 9.5 06/26/24 06/26/24 07:26 11:15 Anion Gap Estim Creat Clear Calc Estimated GFR POC Glucose 134 H 216 H Random Glucose Calcium Assessment and Plan (1) Pulmonary aspiration: Status: Acute Assessment and Plan: 73-year-old gentleman with underlying schizophrenia, dementia, left hemiparesis post CVA admitted with alteration of mental status and hypoxia requiring intubation and ventilatory support and vasopressor use Alteration of mental status/metabolic encephalopath d/t sepsis with underlying schizophrenia, dementia and and lack of decision-making capacity and has court appointment guardian Sepsis d/t Klebsiela ESBL and Proteus, sepsis resolved Blood cultures have been negative nasal mrsa-negative id eval noted -on zosyn(06/22/24)due to aspirational pneumonia. Septic shock--required vasopressor, but resolved. Acute hypoxic respiratory failure related to aspiration pneumnia that required vent support, succesfully extubated on 06/16, respiratory status has improved. -continue Abx as above. -wean off O2 hypernatremia improving ,slow still has i/o neg balance , still 47 ml neg moniter sodium closely-will try po free water 300 ml4hr chenged fluid to d5w@80 ml/hr pvc's episode -8 beats (06/24/24) elctrolytes -k: 3.9 , mag 1.9 added replacements for above to keep potassium above 4 and mag above 2. H/o chronic AFIB--previously on Eliquis but has been on hold d/t significant anemia that required transfusion . rate is controlled, not on rate control meds. Acute blood loss anemia possible gib. d/w GI -hold eliquis ct abd -no iscemic colitis H/H has been stable, + occult blood. plan: coagulopathy treated with Vit k. prbc on ( 06/15,06/23 abd 06/24) respectively, during this admisison got total prbc of 3. h/h in .02/26.9 ppi moniter cbc , npo on thursday for thursday possible colonscopy. Chronic diastolic heart failure--compensated. PELON on CKD 4,improved Creatine within baseline Diabetes-with flacuatin fs hold Lantus and adjusted SSI. Chronic constipation--lactulose PRN, enema PRN added another prbc,ppi Gi rec to add goltyley,keep npo past midnight -possible colo loretta HypoT--IV levothyroxine, once taking oral consistantly change to PO Seizure d/o Keppra, change to PO tomorrow Schizophrenia--patient on multiple meds including monthly haldol, risperidal, congentin--he has been fairly sedated and therefore these meds have been on hold, reintroduce if becoming agitated HTN--imdur and Norvasc on hold, BP ok HLD--Lipitor Diabetes--Lantus and SSI. Monitor sugars FEN--patient was not very responsive and has been on TPN [employer] rec Puree NDD1 and thin liquid TPN stopped on06/20/24. Full code Need for inpatient : recovering from sepsis, encephalopathy, UTI, aspiration PNA Prophylaxis: Pneumatic compression, famotidine ongoing need -anemia -?lower Gi bleed -h/h monitering ,prbc transfusion , moniter renal funtion/electrolytes. his daughter updated in detail. Quality Stroke Does the patient have a stroke diagnosis?: No VTE Prior VTE?: No VTE Risk Level:: Medical - moderate - high VTE Device Contraindication: Treatment Not Indicated VTE Drug Contraindication: N/A - Med Ordered
[2024-06-26] MEDS: Dextrose 5 % 1,000 ML 80 ML IVCONT (15:02)
[2024-06-26] MEDS: hydrALAZINE HCl 10 MG TABLET PO ×2 (15:23→23:24)
[2024-06-26] MEDS: PEG 3350/Na Sulf,Bicarb,Cl/KCL 4,000 ML SOLN.RECON 4000 ML PO (15:23)
--- NOTE | 2024-06-26 15:49 | PC.NURSE ---
Started bowel prep this afternoon , drank 600 ml so far , tolerated well
[2024-06-26 16:00] VITALS: BP 168/80; PULSE 54; RESP 20; TEMP 36.8; O2SAT 94
[2024-06-26 16:36] LABS: Glucose, Whole Blood 175 mg/dL (60-115)
--- NOTE | 2024-06-26 18:12 | PC.NURSE ---
NGTUBE was ordered for bowel prep, this RN and charge nurse attempted to palce NGTUBE on pt . Procedure was explained to the pt , he did not tolerated NGTUBE insertion , pt was yelling , moving head from side to side , grabbed RN hand to stop the procedure . DR Kimbrough was notifed and will proceed with oral bowel prep. Pt is resistant to take anything by mouth at this time , closing his lips tight
[2024-06-26 20:00] VITALS: BP 155/72; PULSE 53; RESP 16; TEMP 36.8; O2SAT 95
[2024-06-26 20:42] LABS: Glucose, Whole Blood 231 mg/dL (60-115)
[2024-06-26 20:56] LABS: Sodium 146 mmol/L (135-145)
[2024-06-26 22:42] LABS: Glucose, Whole Blood 245 mg/dL (60-115)
[2024-06-26 23:20] VITALS: BP 164/68; PULSE 48; RESP 18; TEMP 36.2; O2SAT 98
[2024-06-27] VITALS (8 sets, daily range): BP systolic 98–171; BP diastolic 60–90; PULSE 49–66; RESP 15–20; TEMP 36–36.8; O2SAT 91–99
[2024-06-27] MEDS: levETIRAcetam in NaCl (iso-os) 500 MG/100 ML PIGGYBACK 400 MG IV ×2 (00:15→14:09)
[2024-06-27] MEDS: Dextrose 5 % 1,000 ML 80 ML IVCONT ×2 (04:45→20:02)
[2024-06-27] MEDS: Pantoprazole Sodium 40 MG/10 ML VIAL IVPUSH (06:42)
[2024-06-27] MEDS: Piperacillin Sodium/Tazobactam 3.375 GM in 0.9 % Sodium Chloride 50 ML IV ×3 (06:42→18:22)
[2024-06-27 07:11] LABS: Hematocrit 28.7 % (42.0-52.0); Hemoglobin 9.3 g/dl (14.0-18.0)
[2024-06-27 07:26] LABS: Anion Gap 15 (12-20); Blood Urea Nitrogen 51 mg/dL (9-16); Calcium 9.4 mg/dL (8.4-10.2); Carbon Dioxide 26 mmol/L (22-29); Chloride 109 mmol/L (96-108); Creatinine Clr Calc Pharmacy 32.9; Estimated Glomerular Filt Rate 33; Glucose Random 211 mg/dL (60-115); Potassium 3.8 mmol/L (3.3-5.1); Sodium 146 mmol/L (135-145)
[2024-06-27 07:36] LABS: Glucose, Whole Blood 199 mg/dL (60-115)
[2024-06-27 07:56] LABS: Glucose, Whole Blood 194 mg/dL (60-115)
[2024-06-27 11:14] LABS: Glucose, Whole Blood 159 mg/dL (60-115)
--- NOTE | 2024-06-27 11:22 | MHC.CLN ---
F/U PT WITH INCREASED NUTRITION RISK R/T PRESSURE INJURIES CURRENTLY NPO PREVIOUS PO INTAKE 50-100% WHEN DIET TO ADVANCE, RE-START ENSURE MAX TID TO FURTHER PROMOTE WOUND HEALING SUPPLEMENT TO PROVIDE 450KCALS, 90G PROTEIN FOLLOWING FOR DIET ADVANCEMENT
--- NOTE | 2024-06-27 11:38 | P.PNNP_ITS ---
Subjective Subjective Date of Service: 06/27/24 Interval history: Admitted for worsening confusion, treated for UTI Pt had increased hyponatremia, most likely related to dehydration/low PO intake currently on D5W at 80ml/hr, sodium remains stable at 146 Remains non-oliguric. creatinine continues to remain at baseline (2.00 this a.m.) occasional yes/no responses to questions, awake/alert this a.m. No events noted overnight per RN at bedside, though pt remains NPO for colonoscopy (?GIB), pt did not get adequate bowel prep and refused/resistant to NGT, currently remains NPO Physical Exam 2 Vital Signs: Vital Signs: Last Vital Signs Temp 96.8 F 06/27/24 07:15 Pulse 51 06/27/24 07:15 Resp 18 06/27/24 07:15 BP 140/60 H 06/27/24 07:15 Pulse Ox 97 06/27/24 07:15 O2 Del Method Nasal Cannula 06/27/24 07:15 O2 Flow Rate 4 06/27/24 07:15 FiO2 30 06/16/24 12:00 BMI result Body Mass Index 23.9 Const: General: comfortable; No acute distress Neck: Neck: Yes supple and Yes no JVD Resp: Effort & Inspection: normal respiratory effort Auscultation: rhonchi Cardio: Palpation: no palpable S3 and no palpable S4 Heart sounds: no rubs GI: Inspection: Yes normal to inspection Palpation (GI): Soft to palpation Auscultation: normal bowel sounds Skin: General skin exam: no petechiae and no purpura Neuro: Other: Nonverbal. Extrem: General: No clubbing and No edema Objective Data Labs 06/27/24 06:31 06/27/24 06:31 Labs: Laboratory Results - last 24 hr 06/26/24 06/26/24 06/26/24 16:25 20:23 20:38 Hgb Hct Sodium 146 H Potassium Chloride Carbon Dioxide Anion Gap BUN Creatinine Estim Creat Clear Calc Estimated GFR POC Glucose 175 H 231 H Random Glucose Calcium 06/26/24 06/27/24 06/27/24 22:38 06:31 07:13 Hgb 9.3 L Hct 28.7 L Sodium 146 H Potassium 3.8 Chloride 109 H Carbon Dioxide 26 Anion Gap 15 BUN 51 H Creatinine 2.00 H Estim Creat Clear Calc 32.9 Estimated GFR 33 POC Glucose 245 H 199 H Random Glucose 211 H Calcium 9.4 06/27/24 06/27/24 07:47 11:10 Hgb Hct Sodium Potassium Chloride Carbon Dioxide Anion Gap BUN Creatinine Estim Creat Clear Calc Estimated GFR POC Glucose 194 H 159 H Random Glucose Calcium Microbiology Microbiology Results: Microbiology 06/14/24 11:05 Blood - Venous Blood Culture - Final No growth after 5 days. 06/14/24 11:03 Blood - Venous Blood Culture - Final No growth after 5 days. 06/14/24 Unknown Urine Catheterized - Burger Catheter Urine Culture - Final Klebsiella pneumoniae Proteus mirabilis Procedures Date of Service Date of Service: 06/27/24 Assessment & Plan Assessment and plan (1) Acute renal failure superimposed on chronic kidney disease: Status: Acute Plan PELON on CKD, resolved Disproportioante increase in BUN- due to GIB Non oliguria Severe Anemia Hypernatremia improving but persistent, likely due to decreased PO intake as pt is NPO recommend increasing rate of D5W to 120mL/hr Renal function continues to improve, now at baseline. Continue to keep I > O with hypotonic fluids until PO intake improves Supportive care Avoid nephrotoxins Expect recovery Discussed with Dr Cain. Time Spent With Patient Time: Total time managing care of this patient today ____ minutes. Progress Note: Quality Stroke Does the patient have a stroke diagnosis?: No
[2024-06-27] MEDS: hydrALAZINE HCl 20 MG/ML VIAL 5 MG IVPUSH (12:24)
[2024-06-27] MEDS: Sodium Phosphate,Mono-Dibasic 133 ML ENEMA PR (14:11)
[2024-06-27] MEDS: Erythromycin Lactobionate 250 MG in 0.9 % Sodium Chloride 100 ML 100 MG IV (14:27)
--- NOTE | 2024-06-27 15:12 | HO.PM.IMPN ---
Subjective Subjective Date of Service: 06/27/24 Interval History: hyponatremia , anemia Review of Systems awake ,seems similar ngt placed for gi prep nicholas for colo today Physical Exam Vital Signs: Vital Signs: Last Vital Signs Temp 97.2 F 06/27/24 12:00 Pulse 50 06/27/24 12:00 Resp 20 06/27/24 12:00 BP 160/90 H 06/27/24 12:00 Pulse Ox 93 06/27/24 12:00 O2 Del Method Nasal Cannula 06/27/24 12:00 O2 Flow Rate 2 06/27/24 12:00 FiO2 30 06/16/24 12:00 BMI result Body Mass Index 23.9 General: Aawke but non communicative. Resp: air entry seems fair, seems diminished at bases. CVS: S1,S2,RRR GI: +BS, NT, no distention Skin: No rash Neuro: motor grossly intact Psych: appropriate affect Objective Data Active Medications Amlodipine Besylate (Amlodipine Besylate 10 Mg Tablet) 10 mg PO DAILY [facility]; Protocol Last Admin: 06/27/24 09:41 Dose: Not Given Documented By: VINNIE Non-Admin Reason: NPO Atorvastatin Calcium (Atorvastatin Calcium 20 Mg Tablet) 20 mg PO DAILY [facility] Last Admin: 06/27/24 09:41 Dose: Not Given Documented By: VINNIE Non-Admin Reason: NPO Bisacodyl (Bisacodyl 10 Mg Supp.Rect) [address] DAILY PRN PRN Reason: Costipation/If MoM not effective. Finasteride (Finasteride 5 Mg Tablet) 5 mg PO DAILY [facility] Last Admin: 06/27/24 09:42 Dose: Not Given Documented By: VINNIE Non-Admin Reason: NPO Folic Acid (Folic Acid 1 Mg Tablet) 1 mg PO DAILY [facility] Last Admin: 06/27/24 09:42 Dose: Not Given Documented By: VINNIE Non-Admin Reason: NPO Glucose (Glucose Gel 15 Gm Gel..Gram.) 15 gm PO Q15M PRN; Protocol PRN Reason: per Hypoglycemia Standing Ord. Hydralazine HCl (Hydralazine Hcl 20 Mg/Ml Vial) 5 mg IVPUSH Q6H PRN; Protocol PRN Reason: htn Last Admin: 06/27/24 12:24 Dose: 5 mg Documented By: VINNIE Hydralazine HCl (Hydralazine Hcl 10 Mg Tablet) 10 mg PO TID [facility]; Protocol Last Admin: 06/27/24 15:11 Dose: Not Given Documented By: MARIELLE Non-Admin Reason: Off Unit: Surgery Levetiracetam (Keppra) 500 mg in 100 mls @ 400 mls/hr IV Q12H [facility] Last Infusion: 06/27/24 14:33 Dose: Infused Documented By: MARIELLE Dextrose (D10) 250 mls @ 750 mls/hr IV Q15M PRN; Protocol PRN Reason: per Hypoglycemia Standing Ord. Last Infusion: 06/24/24 08:50 Dose: Infused Documented By: MJ Piperacillin Sod/Tazobactam (Sod 3.375 gm/ Sodium Chloride) 50 mls @ 100 mls/hr IV Q6H [facility] Last Infusion: 06/27/24 14:09 Dose: Infused Documented By: MARIELLE Dextrose (D5w) 1,000 mls @ 80 mls/hr IVCONT .[id number] [facility] Last Admin: 06/27/24 04:45 Dose: 80 mls/hr Documented By: RON Erythromycin Lactobionate 250 (mg/ Sodium Chloride) 100 mls @ 100 mls/hr IV ONCE ONE Stop: 06/27/24 15:59 Last Admin: 06/27/24 14:54 Dose: Not Given Documented By: MARIELLE Non-Admin Reason: already given Insulin Human Lispro (Insulin Lispro 100 Unit/Ml 3 Ml Vial) 0 unit SUBCUT QIDACHS [facility]; Protocol Last Admin: 06/27/24 11:36 Dose: Not Given Documented By: MARIELLE Non-Admin Reason: No Insulin Coverage Isosorbide Mononitrate (Isosorbide Mononitrate 30 Mg Tab.Er.24h) 30 mg PO DAILY [facility]; Protocol Last Admin: 06/27/24 09:42 Dose: Not Given Documented By: VINNIE Non-Admin Reason: NPO Levothyroxine Sodium (Levothyroxine Sodium 100 Mcg Tablet) 100 mcg PO DAILY@0600 [facility] Last Admin: 06/27/24 06:00 Dose: Not Given Documented By: RON Non-Admin Reason: NPO Magnesium Oxide (Magnesium Oxide 400 Mg Tablet) 400 mg PO BIDPC [facility] Last Admin: 06/27/24 09:41 Dose: Not Given Documented By: VINNIE Non-Admin Reason: NPO Multivitamins/Vitamin C (Multivitamin Tablet) 1 tab PO DAILY [facility] Last Admin: 06/27/24 09:42 Dose: Not Given Documented By: VINNIE Non-Admin Reason: NPO Pantoprazole Sodium (Pantoprazole Sodium 40 Mg/10 Ml Vial) 40 mg IVPUSH BID@0630,1630 [facility] Last Admin: 06/27/24 06:42 Dose: 40 mg Documented By: RON Scopolamine (Scopolamine 1.5 Mg Patch.Td.3) 1.5 mg EAR-BEHIND Q72H [facility] Last Admin: 06/26/24 12:00 Dose: 1.5 mg Documented By: CUCA Sodium Biphosphate/Sodium Phosphate (Sodium Phosphate,Archer-Dibasic 133 Ml Enema) [address] ONCE PRN PRN Reason: Pre-Op Surgical Prep Last Admin: 06/24/24 12:07 Dose: 133 ml Documented By: MJ Sodium Biphosphate/Sodium Phosphate (Sodium Phosphate,Archer-Dibasic 133 Ml Enema) [address] ONCE PRN PRN Reason: Pre-Op Surgical Prep Sodium Biphosphate/Sodium Phosphate (Sodium Phosphate,Archer-Dibasic 133 Ml Enema) [address] ONCE PRN PRN Reason: Pre-Op Surgical Prep Last Admin: 06/27/24 14:11 Dose: 133 ml Documented By: MARIELLE Sodium Chloride (0.9 % Sodium Chloride Flush 3 Ml Syringe) 3 ml IVFLUSH QSHIFT [facility] Last Admin: 06/27/24 10:43 Dose: Not Given Documented By: VINNIE Non-Admin Reason: Previously Administered Sucralfate (Sucralfate 1 Gm Tablet) 1 gm PO TID [facility] Last Admin: 06/27/24 15:11 Dose: Not Given Documented By: MARIELLE Non-Admin Reason: Off Unit: Surgery Vitamin D (Cholecalciferol (Vitamin D3) 25 Mcg Tablet) 50 mcg PO DAILY [facility] Last Admin: 06/27/24 09:41 Dose: Not Given Documented By: VINNIE Non-Admin Reason: NPO Labs 06/27/24 06:31 06/27/24 06:31 Labs: Laboratory Results - last 24 hr 06/26/24 06/26/24 06/26/24 16:25 20:38 22:38 Anion Gap Estim Creat Clear Calc Estimated GFR POC Glucose 175 H 231 H 245 H Random Glucose Calcium 06/27/24 06/27/24 06/27/24 06:31 07:13 07:47 Anion Gap 15 Estim Creat Clear Calc 32.9 Estimated GFR 33 POC Glucose 199 H 194 H Random Glucose 211 H Calcium 9.4 06/27/24 11:10 Anion Gap Estim Creat Clear Calc Estimated GFR POC Glucose 159 H Random Glucose Calcium Assessment and Plan (1) Pulmonary aspiration: Status: Acute Assessment and Plan: 73-year-old gentleman with underlying schizophrenia, dementia, left hemiparesis post CVA admitted with alteration of mental status and hypoxia requiring intubation and ventilatory support and vasopressor use Alteration of mental status/metabolic encephalopath d/t sepsis with underlying schizophrenia, dementia and and lack of decision-making capacity and has court appointment guardian Sepsis d/t Klebsiela ESBL and Proteus, sepsis resolved Blood cultures have been negative nasal mrsa-negative id eval noted -on zosyn(06/22/24)due to aspirational pneumonia. Septic shock--required vasopressor, but resolved. Acute hypoxic respiratory failure related to aspiration pneumnia that required vent support, succesfully extubated on 06/16, respiratory status has improved. -continue Abx as above. -wean off O2 hypernatremia improving -now 146 still has i/o neg balance seems fine ,only 400 ml positive . moniter sodium closely-will try po free water 300 ml4hr dc ivf d5w@80 ml/hr pvc's episode -8 beats (06/24/24) no new episodes moniter tele. H/o chronic AFIB--previously on Eliquis but has been on hold d/t significant anemia that required transfusion . rate is controlled, not on rate control meds. Acute blood loss anemia possible gib. d/w GI -hold eliquis ct abd -no iscemic colitis H/H has been stable, + occult blood. plan: coagulopathy treated with Vit k. prbc on ( 06/15,06/23 abd 06/24) respectively, during this admisison got total prbc of 3. h/h in 8.5/25.9 ppi Gi rec to add goltyley,keep npo past midnight -possible colo today Gi following Chronic diastolic heart failure--compensated. PELON on CKD 4,improved Creatine within baseline Diabetes-with flacuatin fs hold Lantus and adjusted SSI. Chronic constipation--lactulose PRN, enema PRN HypoT--IV levothyroxine, once taking oral consistantly change to PO Seizure d/o Keppra, change to PO tomorrow Schizophrenia--patient on multiple meds including monthly haldol, risperidal, congentin--he has been fairly sedated and therefore these meds have been on hold, reintroduce if becoming agitated HTN--imdur and Norvasc on hold, BP ok HLD--Lipitor Diabetes--Lantus and SSI. Monitor sugars FEN--patient was not very responsive and has been on TPN [employer] rec Puree NDD1 and thin liquid TPN stopped on06/20/24. Full code Need for inpatient : recovering from sepsis, encephalopathy, UTI, aspiration PNA Prophylaxis: Pneumatic compression, famotidine ongoing need -anemia -?lower Gi bleed -h/h monitering ,colonscopy, moniter renal funtion/electrolytes.Gi follow up . his daughter updated in detail. Quality Stroke Does the patient have a stroke diagnosis?: No VTE Prior VTE?: No VTE Risk Level:: Medical - moderate - high VTE Device Contraindication: Treatment Not Indicated VTE Drug Contraindication: N/A - Med Ordered
--- NOTE | 2024-06-27 15:19 | PC.NURSE ---
pt is court ordered incapacitated unable to sign for himself. pt unsure of many questions asked by this rn. chart used and patient answered to best of ability.
--- NOTE | 2024-06-27 15:42 | MHC.SHP ---
Pre-Procedural Eval Section A - 24 Hr Update-Section A only Date of Service: 06/27/24 The patient is an INPATIENT: Yes Changes since office visit: No Cold of Flu in the past 2 weeks, No New Medical Problems, No Changes in Medication and No Patient answered all questions The patient has been examined within 24 hours of the surgical procedure. The History & Physical has been completed within 30 days and I have reviewed it.: Yes Section B - Complete if H&P > 30 days Chief Complaint: anemia, GI bleeding Allergies: Allergies Allergy/AdvReac Type Severity Reaction Status Date / Time No Known Allergies Allergy Verified 07/10/23 03:39 Plan Diagnosis/Plan: Change (proceed with EGD and colon for evaluation of anemia and rectal bleeding) I have reviewed the history and physical and performed a pertinent physical examination on my patient. No changes have occurred unless specified. Time Spent With Patient Time: Total time managing care of this patient today ____ minutes.
--- NOTE | 2024-06-27 16:32 | P.CONAN_ITS ---
HPI - Anesthesia Eval Consult details Narrative: For EGD and colonoscopy PMFSH Active Problems Active Problems: All Active Problems Acute renal failure superimposed on chronic kidney disease (Acute) Dementia (Acute) Blood loss anemia (Acute) Coagulopathy (Acute) Left hemiparesis (Acute) Urinary tract infection (Acute) Pulmonary aspiration (Acute) Acute respiratory failure with hypoxia (Acute) Hypothermia (Acute) Sepsis (Acute) Schizophrenia (Acute) Type 2 diabetes mellitus (Acute) Hypertensive cardiovascular-renal disease (Acute) CKD (chronic kidney disease) (Acute) Acute alteration in mental status (Acute) New onset seizure (Acute) Past Medical History Medical History Type 2 diabetes mellitus Hypertensive cardiovascular-renal disease Hypothermia Schizophrenia BPH (benign prostatic hyperplasia) Stage 3b chronic kidney disease (CKD) Left hemiparesis Right pontine CVA Hypertension Recurrent UTI Dysphagia Dementia Chronic diastolic heart failure Paroxysmal A-fib Diabetes mellitus type 2 in obese Family History Family history of problems with anesthesia: No Surgical History History of Problems with Anesthesia: No Social History Social History Household Members: Unknown / Unable to assess Housing: Jail Are you a primary home health care case manager to a significant other at home: No Do you presently have visiting nurse or other home services: No Unable to assess alcohol history related to: Unable to respond Patient Tobacco Use Status: Tobacco use Unknown Substance Use Type: Unknown Meds Allergies Allergy/AdvReac Type Severity Reaction Status Date / Time No Known Allergies Allergy Verified 07/10/23 03:39 Active Medications: Current Medications Amlodipine Besylate (Amlodipine Besylate 10 Mg Tablet) 10 mg PO DAILY [facility]; Protocol Last Admin: 06/27/24 09:41 Dose: Not Given Atorvastatin Calcium (Atorvastatin Calcium 20 Mg Tablet) 20 mg PO DAILY [facility] Last Admin: 06/27/24 09:41 Dose: Not Given Bisacodyl (Bisacodyl 10 Mg Supp.Rect) 10 mg [place] DAILY PRN PRN Reason: Costipation/If MoM not effective. Finasteride (Finasteride 5 Mg Tablet) 5 mg PO DAILY [facility] Last Admin: 06/27/24 09:42 Dose: Not Given Folic Acid (Folic Acid 1 Mg Tablet) 1 mg PO DAILY [facility] Last Admin: 06/27/24 09:42 Dose: Not Given Glucose (Glucose Gel 15 Gm Gel..Gram.) 15 gm PO Q15M PRN; Protocol PRN Reason: per Hypoglycemia Standing Ord. Hydralazine HCl (Hydralazine Hcl 20 Mg/Ml Vial) 5 mg IVPUSH Q6H PRN; Protocol PRN Reason: htn Last Admin: 06/27/24 12:24 Dose: 5 mg Hydralazine HCl (Hydralazine Hcl 10 Mg Tablet) 10 mg PO TID [facility]; Protocol Last Admin: 06/27/24 15:11 Dose: Not Given Levetiracetam (Keppra) 500 mg in 100 mls @ 400 mls/hr IV Q12H [facility] Last Infusion: 06/27/24 14:33 Dose: Infused Dextrose (D10) 250 mls @ 750 mls/hr IV Q15M PRN; Protocol PRN Reason: per Hypoglycemia Standing Ord. Last Infusion: 06/24/24 08:50 Dose: Infused Piperacillin Sod/Tazobactam (Sod 3.375 gm/ Sodium Chloride) 50 mls @ 100 mls/hr IV Q6H [facility] Last Infusion: 06/27/24 14:09 Dose: Infused Dextrose (D5w) 1,000 mls @ 80 mls/hr IVCONT .[id number] [facility] Last Infusion: 06/27/24 15:13 Dose: Infused Insulin Human Lispro (Insulin Lispro 100 Unit/Ml 3 Ml Vial) 0 unit SUBCUT QIDACHS [facility]; Protocol Last Admin: 06/27/24 11:36 Dose: Not Given Isosorbide Mononitrate (Isosorbide Mononitrate 30 Mg Tab.Er.24h) 30 mg PO DAILY [facility]; Protocol Last Admin: 06/27/24 09:42 Dose: Not Given Levothyroxine Sodium (Levothyroxine Sodium 100 Mcg Tablet) 100 mcg PO DAILY@0600 [facility] Last Admin: 06/27/24 06:00 Dose: Not Given Magnesium Oxide (Magnesium Oxide 400 Mg Tablet) 400 mg PO BIDPC [facility] Last Admin: 06/27/24 09:41 Dose: Not Given Multivitamins/Vitamin C (Multivitamin Tablet) 1 tab PO DAILY [facility] Last Admin: 06/27/24 09:42 Dose: Not Given Pantoprazole Sodium (Pantoprazole Sodium 40 Mg/10 Ml Vial) 40 mg IVPUSH BID@0630,1630 [facility] Last Admin: 06/27/24 06:42 Dose: 40 mg Scopolamine (Scopolamine 1.5 Mg Patch.Td.3) 1.5 mg EAR-BEHIND Q72H [facility] Last Admin: 06/26/24 12:00 Dose: 1.5 mg Sodium Biphosphate/Sodium Phosphate (Sodium Phosphate,[place]-Dibasic 133 Ml Enema) 133 ml VA ONCE PRN PRN Reason: Pre-Op Surgical Prep Last Admin: 06/24/24 12:07 Dose: 133 ml Sodium Biphosphate/Sodium Phosphate (Sodium Phosphate,[place]-Dibasic 133 Ml Enema) 133 ml VA ONCE PRN PRN Reason: Pre-Op Surgical Prep Sodium Biphosphate/Sodium Phosphate (Sodium Phosphate,[place]-Dibasic 133 Ml Enema) 133 ml VA ONCE PRN PRN Reason: Pre-Op Surgical Prep Last Admin: 06/27/24 14:11 Dose: 133 ml Sodium Chloride (0.9 % Sodium Chloride Flush 3 Ml Syringe) 3 ml IVFLUSH QSHIFT [facility] Last Admin: 06/27/24 10:43 Dose: Not Given Sucralfate (Sucralfate 1 Gm Tablet) 1 gm PO TID [facility] Last Admin: 06/27/24 15:11 Dose: Not Given Vitamin D (Cholecalciferol (Vitamin D3) 25 Mcg Tablet) 50 mcg PO DAILY [facility] Last Admin: 06/27/24 09:41 Dose: Not Given Home Medications ?Medication ?Instructions ?Recorded ?Confirmed ?Last Taken ?Type apixaban 5 mg tablet (Eliquis) 5 mg PO BID 07/10/23 06/14/24 Unknown History atorvastatin 20 mg tablet 20 mg PO DAILY 07/10/23 06/14/24 Unknown History cholecalciferol (vitamin D3) 50 50 mcg PO DAILY 07/10/23 06/14/24 Unknown Hist ory mcg (2,000 unit) tablet finasteride 5 mg tablet 5 mg PO DAILY 07/10/23 06/14/24 Unknown History folic acid 1 mg tablet 1 mg PO DAILY 07/10/23 06/14/24 Unknown History haloperidol decanoate 50 mg/mL 50 mg IM Q4W 07/10/23 06/14/24 Unknown History intramuscular solution multivitamin 1 tab PO DAILY 07/10/23 06/14/24 Unknown History risperidone 2 mg tablet 2 mg PO BID 07/10/23 06/14/24 Unknown History sucralfate 1 gram tablet (Carafate) 1 g PO TID 07/10/23 06/14/24 Unknown History amlodipine 10 mg tablet 10 mg PO DAILY 07/23/23 06/14/24 Unknown History levetiracetam 100 mg/mL oral 250 mg PO BID 07/23/23 06/14/24 Unknown History solution Glucose Gel 77.4% 1 appl PO Q15M PRN HYPOGLYCEMIA, 06/14/24 06/14/24 Unknown History BS <60 acetaminophen 325 mg tablet 650 mg PO Q6H PRN General 06/14/24 06/14/24 Unknown History Discomfort/Temp Over 101 acetaminophen 650 mg rectal 650 mg VA Q6H PRN General 06/14/24 06/14/24 Unknown History suppository Discomfort/Temp Over 101 benztropine 1 mg tablet 1 mg PO BID 06/14/24 06/14/24 Unknown History bisacodyl 10 mg rectal suppository 10 mg VA DAILY PRN Costipation/If 06/14/24 06/14/24 Unknown History MoM not effective. glucagon 1 mg/0.2 mL subcutaneous 1 mg subcut Q15M PRN blood Sugar 06/14/24 06/14/24 Unknown History solution (Gvoke) insulin glargine 100 unit/mL 6 unit subcut DAILY 06/14/24 06/14/24 Unknown History subcutaneous solution (Lantus U-100 Insulin) insulin lispro 100 unit/mL 1 sliding scale dose subcut 06/14/24 06/14/24 Unknown History subcutaneous solution (Humalog USEASDIRECTD U-100 Insulin) isosorbide mononitrate 30 mg 30 mg PO DAILY 06/14/24 06/14/24 Unknown History tablet,extended release 24 hr lactulose 10 gram/15 mL (15 mL) 45 ml PO DAILY 06/14/24 06/14/24 Unknown History oral solution lanolin alcohols-mineral 1 appl topical TID XEROSIS CUTIS 06/14/24 06/14/24 Unknown History oil-w.petrolatum-ceresin topical cream (Minerin Creme topical) levothyroxine 100 mcg tablet 100 mcg PO DAILY@0600 06/14/24 06/14/24 Unknown History pantoprazole 40 mg tablet,delayed 40 mg PO DAILY@0630 06/14/24 06/14/24 Unknown History release thiamine HCl (vitamin B1) 100 mg 100 mg PO DAILY 06/14/24 06/14/24 Unknown History tablet Exam Height,Weight and Vital Signs: Height 5 ft 10 in Weight 75.7 kg Last Vital Signs Temp 98.3 F 06/27/24 15:06 Pulse 60 06/27/24 15:06 Resp 20 06/27/24 15:06 BP 171/67 H 06/27/24 15:06 Pulse Ox 99 06/27/24 15:06 O2 Del Method Room Air 06/27/24 15:06 O2 Flow Rate 2 06/27/24 12:00 FiO2 30 06/16/24 12:00 Pertinent Lab Results Pertinent Lab Results: Laboratory Tests 06/14/24 06/14/24 06/14/24 11:03 11:10 11:13 WBC 6.5 RBC 3.23 L Hgb 8.9 L Hct 27.9 L MCV 86.4 MCH 27.6 MCHC 31.9 RDW 19.6 H Plt Count 128 L D MPV 10.3 Immature Gran % (Auto) Cancelled Neut % (Auto) Cancelled Lymph % (Auto) Cancelled [place] % (Auto) Cancelled Eos % (Auto) Cancelled Baso % (Auto) Cancelled Lymph # (Auto) Cancelled [place] # (Auto) Cancelled Eos # (Auto) Cancelled Baso # (Auto) Cancelled Abs Immat Gran (auto) Cancelled Absolute Neuts (auto) Cancelled Absolute Nucleated RBC 0.060 H Nucleated RBC % (auto) 0.9 H Neutrophils % (Manual) 50 Band Neutrophils % 36 H Lymphocytes % (Manual) 10 L Monocytes % (Manual) 3 Metamyelocytes % Myelocytes % 1 Abs Neuts (Manual) 5.6 Lymphocytes # (Manual) 0.7 L Monocytes # (Manual) 0.2 Metamyelocytes # Myelocytes # 0.1 Nucleated RBCs 3 H Toxic Granulation Toxic Vacuolation Dohle Bodies PRESENT WBC Morphology Comment Platelet Estimate SLIGHTLY DECREASED Large Platelets PRESENT Giant Platelets Plt Morphology Comment NOTED RBC Morphology NOTED Polychromasia 1+ (0-2) Microcytosis Target Cells Tear Drop Cells Ovalocytes 1+ (5-14) [place] Cells 3+ (>5) Schistocytes Smear Path Review Hold Purple Top SEE NOTE PT 26.8 H D INR 2.2 H APTT 68.8 H* VBG pH 7.12 L* VBG pCO2 53 VBG pO2 65 VBG HCO3 17 L VBG O2 Saturation 79.0 VBG Base Excess -11.1 Sodium 140 Potassium 5.0 Chloride 102 Carbon Dioxide 17 L Anion Gap 26 H BUN 55 H Creatinine 2.94 H Estim Creat Clear Calc 24.3 Estimated GFR 21 POC Glucose Random Glucose 195 H Lactic Acid 12.6 H* Lactic Acid F/U @ 2Hr Lactic Acid F/U @ 4Hr Calcium 10.3 H D Phosphorus Magnesium 2.4 Iron TIBC % Saturation Unsat Iron Binding Ferritin Total Bilirubin 0.3 AST 17 ALT 19 Alkaline Phosphatase 174 H Troponin I High Sens 3.9 D B-Natriuretic Peptide 206 H Total Protein 7.2 Albumin 3.0 L Triglycerides Vitamin B12 Folate TSH 0.96 Urine Color Dark Yellow Urine Appearance Turbid Urine pH >= 9.0 Ur Specific [place] 1.025 Urine Protein 300 (3+) H Urine Glucose (UA) Negative Urine Ketones Trace Urine Blood Large (3+) H Urine Nitrite Negative Ur Leukocyte Esterase Moderate (2+) H Urine RBC >20 H Urine WBC 21-50 H Ur Squamous Epith Cells 0-2 Other Crystals Present Urine Bacteria 1+ Hyaline Casts 0-2 Nasal Screen MRSA (PCR) Nasal S. aureus Screen Nasal MRSA/S.aureus Interp Stool Occult Blood Influenza Type A (PCR) Influenza Type B (PCR) RSV RNA Qual (PCR) SARS-CoV-2 RNA (RT-PCR) Blood Type Antibody Screen Crossmatch 06/14/24 06/14/24 06/14/24 11:18 14:31 14:44 WBC RBC Hgb Hct MCV MCH MCHC RDW Plt Count MPV Immature Gran % (Auto) Neut % (Auto) Lymph % (Auto) [place] % (Auto) Eos % (Auto) Baso % (Auto) Lymph # (Auto) [place] # (Auto) Eos # (Auto) Baso # (Auto) Abs Immat Gran (auto) Absolute Neuts (auto) Absolute Nucleated RBC Nucleated RBC % (auto) Neutrophils % (Manual) Band Neutrophils % Lymphocytes % (Manual) Monocytes % (Manual) Metamyelocytes % Myelocytes % Abs Neuts (Manual) Lymphocytes # (Manual) Monocytes # (Manual) Metamyelocytes # Myelocytes # Nucleated RBCs Toxic Granulation Toxic Vacuolation Dohle Bodies WBC Morphology Comment Platelet Estimate Large Platelets Giant Platelets Plt Morphology Comment RBC Morphology Polychromasia Microcytosis Target Cells Tear Drop Cells Ovalocytes [place] Cells Schistocytes Smear Path Review Hold Purple Top PT INR APTT VBG pH VBG pCO2 VBG pO2 VBG HCO3 VBG O2 Saturation VBG Base Excess Sodium Potassium Chloride Carbon Dioxide Anion Gap BUN Creatinine Estim Creat Clear Calc Estimated GFR POC Glucose 172 H Random Glucose Lactic Acid Lactic Acid F/U @ 2Hr 12.2 H* Lactic Acid F/U @ 4Hr Calcium Phosphorus Magnesium Iron TIBC % Saturation Unsat Iron Binding Ferritin Total Bilirubin AST ALT Alkaline Phosphatase Troponin I High Sens B-Natriuretic Peptide Total Protein Albumin Triglycerides Vitamin B12 Folate TSH Urine Color Urine Appearance Urine pH Ur Specific [place] Urine Protein Urine Glucose (UA) Urine Ketones Urine Blood Urine Nitrite Ur Leukocyte Esterase Urine RBC Urine WBC Ur Squamous Epith Cells Other Crystals Urine Bacteria Hyaline Casts Nasal Screen MRSA (PCR) Nasal S. aureus Screen Nasal MRSA/S.aureus Interp Stool Occult Blood Influenza Type A (PCR) NEGATIVE Influenza Type B (PCR) NEGATIVE RSV RNA Qual (PCR) NEGATIVE SARS-CoV-2 RNA (RT-PCR) NEGATIVE Blood Type Antibody Screen Crossmatch 06/14/24 06/14/24 06/14/24 18:04 18:29 18:30 WBC 6.5 RBC 2.72 L Hgb 7.4 L Hct 23.1 L MCV 84.9 MCH 27.2 MCHC 32.0 RDW 19.4 H Plt Count 97 L MPV 10.4 Immature Gran % (Auto) Cancelled Neut % (Auto) Cancelled Lymph % (Auto) Cancelled [place] % (Auto) Cancelled Eos % (Auto) Cancelled Baso % (Auto) Cancelled Lymph # (Auto) Cancelled [place] # (Auto) Cancelled Eos # (Auto) Cancelled Baso # (Auto) Cancelled Abs Immat Gran (auto) Cancelled Absolute Neuts (auto) Cancelled Absolute Nucleated RBC 0.040 H Nucleated RBC % (auto) 0.6 H Neutrophils % (Manual) 62 Band Neutrophils % 22 H Lymphocytes % (Manual) 7 L Monocytes % (Manual) 3 Metamyelocytes % 5 Myelocytes % 1 Abs Neuts (Manual) 5.5 Lymphocytes # (Manual) 0.5 L Monocytes # (Manual) 0.2 Metamyelocytes # 0.3 Myelocytes # 0.1 Nucleated RBCs 1 H Toxic Granulation Toxic Vacuolation Dohle Bodies WBC Morphology Comment SEE NOTE Platelet Estimate SLIGHTLY DECREASED Large Platelets Giant Platelets Plt Morphology Comment NORMAL RBC Morphology NOTED Polychromasia Microcytosis Target Cells Tear Drop Cells Ovalocytes 1+ (5-14) [place] Cells 3+ (>5) Schistocytes 2+ (3-5) Smear Path Review SEE NOTE Hold Purple Top PT INR APTT VBG pH VBG pCO2 VBG pO2 VBG HCO3 VBG O2 Saturation VBG Base Excess Sodium 138 Potassium 5.1 Chloride 106 Carbon Dioxide 15 L Anion Gap 22 H BUN 47 H Creatinine 2.46 H Estim Creat Clear Calc 29.0 Estimated GFR 26 POC Glucose 177 H Random Glucose 204 H Lactic Acid Lactic Acid F/U @ 2Hr Lactic Acid F/U @ 4Hr 10.9 H* Calcium 9.3 D Phosphorus Magnesium Iron TIBC % Saturation Unsat Iron Binding Ferritin Total Bilirubin AST ALT Alkaline Phosphatase Troponin I High Sens B-Natriuretic Peptide Total Protein Albumin Triglycerides Vitamin B12 Folate TSH Urine Color Urine Appearance Urine pH Ur Specific [place] Urine Protein Urine Glucose (UA) Urine Ketones Urine Blood Urine Nitrite Ur Leukocyte Esterase Urine RBC Urine WBC Ur Squamous Epith Cells Other Crystals Urine Bacteria Hyaline Casts Nasal Screen MRSA (PCR) Nasal S. aureus Screen Nasal MRSA/S.aureus Interp Stool Occult Blood Influenza Type A (PCR) Influenza Type B (PCR) RSV RNA Qual (PCR) SARS-CoV-2 RNA (RT-PCR) Blood Type Antibody Screen Crossmatch 06/14/24 06/14/24 06/14/24 18:37 21:03 21:58 WBC 7.0 RBC 2.69 L Hgb 7.3 L Hct 22.7 L MCV 84.4 MCH 27.1 MCHC 32.2 RDW 19.4 H Plt Count 117 L MPV 10.0 Immature Gran % (Auto) Cancelled Neut % (Auto) Cancelled Lymph % (Auto) Cancelled [place] % (Auto) Cancelled Eos % (Auto) Cancelled Baso % (Auto) Cancelled Lymph # (Auto) Cancelled [place] # (Auto) Cancelled Eos # (Auto) Cancelled Baso # (Auto) Cancelled Abs Immat Gran (auto) Cancelled Absolute Neuts (auto) Cancelled Absolute Nucleated RBC 0.080 H Nucleated RBC % (auto) 1.1 H Neutrophils % (Manual) 62 Band Neutrophils % 17 H Lymphocytes % (Manual) 7 L Monocytes % (Manual) 7 Metamyelocytes % 6 Myelocytes % 1 Abs Neuts (Manual) 5.5 Lymphocytes # (Manual) 0.5 L Monocytes # (Manual) 0.5 Metamyelocytes # 0.4 Myelocytes # 0.1 Nucleated RBCs 3 H Toxic Granulation Toxic Vacuolation PRESENT Dohle Bodies WBC Morphology Comment Platelet Estimate NORMAL Large Platelets Giant Platelets Plt Morphology Comment NORMAL RBC Morphology NOTED Polychromasia Microcytosis Target Cells Tear Drop Cells Ovalocytes 1+ (5-14) [place] Cells 3+ (>5) Schistocytes 1+ (0-2) Smear Path Review Hold Purple Top PT INR APTT VBG pH 7.25 L VBG pCO2 31 VBG pO2 70 VBG HCO3 14 L VBG O2 Saturation 90.0 VBG Base Excess -11.9 Sodium 137 Potassium 5.4 H Chloride 105 Carbon Dioxide 17 L Anion Gap 20 BUN 49 H Creatinine 2.45 H Estim Creat Clear Calc 29.1 Estimated GFR 26 POC Glucose Random Glucose 218 H Lactic Acid 8.6 H* Lactic Acid F/U @ 2Hr Lactic Acid F/U @ 4Hr Calcium 9.4 Phosphorus 3.2 Magnesium 2.2 Iron TIBC % Saturation Unsat Iron Binding Ferritin Total Bilirubin AST ALT Alkaline Phosphatase Troponin I High Sens B-Natriuretic Peptide Total Protein Albumin Triglycerides Vitamin B12 Folate TSH Urine Color Urine Appearance Urine pH Ur Specific [place] Urine Protein Urine Glucose (UA) Urine Ketones Urine Blood Urine Nitrite Ur Leukocyte Esterase Urine RBC Urine WBC Ur Squamous Epith Cells Other Crystals Urine Bacteria Hyaline Casts Nasal Screen MRSA (PCR) Nasal S. aureus Screen Nasal MRSA/S.aureus Interp Stool Occult Blood POSITIVE Influenza Type A (PCR) Influenza Type B (PCR) RSV RNA Qual (PCR) SARS-CoV-2 RNA (RT-PCR) Blood Type Antibody Screen Crossmatch 06/14/24 06/14/24 06/15/24 22:13 23:59 00:14 WBC RBC Hgb Hct MCV MCH MCHC RDW Plt Count MPV Immature Gran % (Auto) Neut % (Auto) Lymph % (Auto) [place] % (Auto) Eos % (Auto) Baso % (Auto) Lymph # (Auto) [place] # (Auto) Eos # (Auto) Baso # (Auto) Abs Immat Gran (auto) Absolute Neuts (auto) Absolute Nucleated RBC Nucleated RBC % (auto) Neutrophils % (Manual) Band Neutrophils % Lymphocytes % (Manual) Monocytes % (Manual) Metamyelocytes % Myelocytes % Abs Neuts (Manual) Lymphocytes # (Manual) Monocytes # (Manual) Metamyelocytes # Myelocytes # Nucleated RBCs Toxic Granulation Toxic Vacuolation Dohle Bodies WBC Morphology Comment Platelet Estimate Large Platelets Giant Platelets Plt Morphology Comment RBC Morphology Polychromasia Microcytosis Target Cells Tear Drop Cells Ovalocytes [place] Cells Schistocytes Smear Path Review Hold Purple Top PT INR APTT VBG pH 7.36 VBG pCO2 26 VBG pO2 66 VBG HCO3 15 L VBG O2 Saturation 91.0 VBG Base Excess -8.9 Sodium Potassium Chloride Carbon Dioxide Anion Gap BUN Creatinine Estim Creat Clear Calc Estimated GFR POC Glucose 215 H Random Glucose Lactic Acid Lactic Acid F/U @ 2Hr 5.8 H* Lactic Acid F/U @ 4Hr Calcium Phosphorus Magnesium Iron TIBC % Saturation Unsat Iron Binding Ferritin Total Bilirubin AST ALT Alkaline Phosphatase Troponin I High Sens B-Natriuretic Peptide Total Protein Albumin Triglycerides Vitamin B12 Folate TSH Urine Color Urine Appearance Urine pH Ur Specific [place] Urine Protein Urine Glucose (UA) Urine Ketones Urine Blood Urine Nitrite Ur Leukocyte Esterase Urine RBC Urine WBC Ur Squamous Epith Cells Other Crystals Urine Bacteria Hyaline Casts Nasal Screen MRSA (PCR) Nasal S. aureus Screen Nasal MRSA/S.aureus Interp Stool Occult Blood Influenza Type A (PCR) Influenza Type B (PCR) RSV RNA Qual (PCR) SARS-CoV-2 RNA (RT-PCR) Blood Type Antibody Screen Crossmatch 06/15/24 06/15/24 06/15/24 01:04 02:36 05:16 WBC 9.0 RBC 2.73 L Hgb 7.3 L Hct 22.3 L MCV 81.7 MCH 26.7 L MCHC 32.7 RDW 19.2 H Plt Count 130 L MPV 10.1 Immature Gran % (Auto) Cancelled Neut % (Auto) Cancelled Lymph % (Auto) Cancelled [place] % (Auto) Cancelled Eos % (Auto) Cancelled Baso % (Auto) Cancelled Lymph # (Auto) Cancelled [place] # (Auto) Cancelled Eos # (Auto) Cancelled Baso # (Auto) Cancelled Abs Immat Gran (auto) Cancelled Absolute Neuts (auto) Cancelled Absolute Nucleated RBC 0.090 H Nucleated RBC % (auto) 1.0 H Neutrophils % (Manual) 44 L Band Neutrophils % 36 H Lymphocytes % (Manual) 9 L Monocytes % (Manual) 3 Metamyelocytes % 7 Myelocytes % 1 Abs Neuts (Manual) 7.2 Lymphocytes # (Manual) 0.8 L Monocytes # (Manual) 0.3 Metamyelocytes # 0.6 Myelocytes # 0.1 Nucleated RBCs 1 H Toxic Granulation PRESENT Toxic Vacuolation PRESENT Dohle Bodies PRESENT WBC Morphology Comment Platelet Estimate SLIGHTLY DECREASED Large Platelets Giant Platelets Plt Morphology Comment NORMAL RBC Morphology NOTED Polychromasia 1+ (0-2) Microcytosis Target Cells Tear Drop Cells Ovalocytes 1+ (5-14) [place] Cells 3+ (>5) Schistocytes Smear Path Review Hold Purple Top PT INR APTT VBG pH 7.50 H VBG pCO2 28 VBG pO2 48 VBG HCO3 22 VBG O2 Saturation 80.0 VBG Base Excess -0.4 Sodium Potassium Chloride Carbon Dioxide Anion Gap BUN Creatinine Estim Creat Clear Calc Estimated GFR POC Glucose Random Glucose Lactic Acid Lactic Acid F/U @ 2Hr Lactic Acid F/U @ 4Hr 3.6 H* Calcium Phosphorus Magnesium Iron TIBC % Saturation Unsat Iron Binding Ferritin Total Bilirubin AST ALT Alkaline Phosphatase Troponin I High Sens B-Natriuretic Peptide Total Protein Albumin Triglycerides Vitamin B12 Folate TSH Urine Color Urine Appearance Urine pH Ur Specific [place] Urine Protein Urine Glucose (UA) Urine Ketones Urine Blood Urine Nitrite Ur Leukocyte Esterase Urine RBC Urine WBC Ur Squamous Epith Cells Other Crystals Urine Bacteria Hyaline Casts Nasal Screen MRSA (PCR) Nasal S. aureus Screen Nasal MRSA/S.aureus Interp Stool Occult Blood Influenza Type A (PCR) Influenza Type B (PCR) RSV RNA Qual (PCR) SARS-CoV-2 RNA (RT-PCR) Blood Type O Positive Antibody Screen NEGATIVE Crossmatch See Detail 06/15/24 06/15/24 06/15/24 05:18 11:53 13:54 WBC 10.8 13.5 H RBC 2.63 L 2.57 L Hgb 7.1 L 7.0 L* Hct 21.1 L 20.4 L* MCV 80.2 79.4 L MCH 27.0 27.2 MCHC 33.6 34.3 RDW 18.8 H 18.9 H Plt Count 111 L 125 L MPV 9.9 10.4 Immature Gran % (Auto) Cancelled Cancelled Neut % (Auto) Cancelled Cancelled Lymph % (Auto) Cancelled Cancelled [place] % (Auto) Cancelled Cancelled Eos % (Auto) Cancelled Cancelled Baso % (Auto) Cancelled Cancelled Lymph # (Auto) Cancelled Cancelled [place] # (Auto) Cancelled Cancelled Eos # (Auto) Cancelled Cancelled Baso # (Auto) Cancelled Cancelled Abs Immat Gran (auto) Cancelled Cancelled Absolute Neuts (auto) Cancelled Cancelled Absolute Nucleated RBC 0.110 H 0.140 H Nucleated RBC % (auto) 1.0 H 1.0 H Neutrophils % (Manual) 40 L 66 Band Neutrophils % 46 H 21 H Lymphocytes % (Manual) 8 L 10 L Monocytes % (Manual) 1 L Metamyelocytes % 5 3 Myelocytes % Abs Neuts (Manual) 9.3 H 11.7 H Lymphocytes # (Manual) 0.9 L 1.4 Monocytes # (Manual) 0.1 Metamyelocytes # 0.5 0.4 Myelocytes # Nucleated RBCs 2 H 1 H Toxic Granulation PRESENT Toxic Vacuolation PRESENT PRESENT Dohle Bodies PRESENT PRESENT WBC Morphology Comment Platelet Estimate SLIGHTLY DECREASED DECREASED Large Platelets PRESENT PRESENT Giant Platelets Plt Morphology Comment NOTED NOTED RBC Morphology NOTED NOTED Polychromasia 1+ (0-2) Microcytosis 1+ (5-14) Target Cells Tear Drop Cells 1+ (0-2) Ovalocytes 1+ (5-14) [place] Cells 3+ (>5) 1+ (0-2) Schistocytes 1+ (0-2) 1+ (0-2) Smear Path Review Hold Purple Top PT 41.0 H D INR 3.4 H APTT VBG pH VBG pCO2 VBG pO2 VBG HCO3 VBG O2 Saturation VBG Base Excess Sodium 140 Potassium 5.1 Chloride 108 Carbon Dioxide 22 Anion Gap 15 BUN 51 H Creatinine 2.88 H Estim Creat Clear Calc 24.8 Estimated GFR 21 POC Glucose 107 Random Glucose 153 H Lactic Acid Lactic Acid F/U @ 2Hr Lactic Acid F/U @ 4Hr Calcium 9.7 Phosphorus 2.0 L Magnesium 2.1 Iron TIBC % Saturation Unsat Iron Binding Ferritin Total Bilirubin AST ALT Alkaline Phosphatase Troponin I High Sens B-Natriuretic Peptide Total Protein Albumin 3.2 L Triglycerides Vitamin B12 Folate TSH Urine Color Urine Appearance Urine pH Ur Specific [place] Urine Protein Urine Glucose (UA) Urine Ketones Urine Blood Urine Nitrite Ur Leukocyte Esterase Urine RBC Urine WBC Ur Squamous Epith Cells Other Crystals Urine Bacteria Hyaline Casts Nasal Screen MRSA (PCR) Nasal S. aureus Screen Nasal MRSA/S.aureus Interp Stool Occult Blood Influenza Type A (PCR) Influenza Type B (PCR) RSV RNA Qual (PCR) SARS-CoV-2 RNA (RT-PCR) Blood Type Antibody Screen Crossmatch 06/15/24 06/15/24 06/16/24 17:50 19:22 00:17 WBC 12.8 H RBC 2.45 L Hgb 6.7 L* Hct 19.5 L* MCV 79.6 L MCH 27.3 MCHC 34.4 RDW 18.8 H Plt Count 112 L MPV 10.9 Immature Gran % (Auto) Cancelled Neut % (Auto) Cancelled Lymph % (Auto) Cancelled [place] % (Auto) Cancelled Eos % (Auto) Cancelled Baso % (Auto) Cancelled Lymph # (Auto) Cancelled [place] # (Auto) Cancelled Eos # (Auto) Cancelled Baso # (Auto) Cancelled Abs Immat Gran (auto) Cancelled Absolute Neuts (auto) Cancelled Absolute Nucleated RBC 0.100 H Nucleated RBC % (auto) 0.8 H Neutrophils % (Manual) 67 Band Neutrophils % 20 H Lymphocytes % (Manual) 11 L Monocytes % (Manual) 1 L Metamyelocytes % 1 Myelocytes % Abs Neuts (Manual) 11.1 H Lymphocytes # (Manual) 1.4 Monocytes # (Manual) 0.1 Metamyelocytes # 0.1 Myelocytes # Nucleated RBCs 7 H Toxic Granulation Toxic Vacuolation PRESENT Dohle Bodies WBC Morphology Comment Platelet Estimate NORMAL Large Platelets Giant Platelets PRESENT Plt Morphology Comment NOTED RBC Morphology NOTED Polychromasia Microcytosis Target Cells 1+ (5-14) Tear Drop Cells Ovalocytes [place] Cells 2+ (3-5) Schistocytes Smear Path Review Hold Purple Top PT INR APTT VBG pH VBG pCO2 VBG pO2 VBG HCO3 VBG O2 Saturation VBG Base Excess Sodium 144 Potassium 4.6 Chloride 107 Carbon Dioxide 26 Anion Gap 16 BUN 59 H Creatinine 3.20 H Estim Creat Clear Calc 20.5 Estimated GFR 19 POC Glucose 128 H 153 H Random Glucose 137 H Lactic Acid Lactic Acid F/U @ 2Hr Lactic Acid F/U @ 4Hr Calcium 10.5 H D Phosphorus 4.1 Magnesium 2.2 Iron TIBC % Saturation Unsat Iron Binding Ferritin Total Bilirubin AST ALT Alkaline Phosphatase Troponin I High Sens B-Natriuretic Peptide Total Protein Albumin 3.9 Triglycerides Vitamin B12 Folate TSH Urine Color Urine Appearance Urine pH Ur Specific [place] Urine Protein Urine Glucose (UA) Urine Ketones Urine Blood Urine Nitrite Ur Leukocyte Esterase Urine RBC Urine WBC Ur Squamous Epith Cells Other Crystals Urine Bacteria Hyaline Casts Nasal Screen MRSA (PCR) Nasal S. aureus Screen Nasal MRSA/S.aureus Interp Stool Occult Blood Influenza Type A (PCR) Influenza Type B (PCR) RSV RNA Qual (PCR) SARS-CoV-2 RNA (RT-PCR) Blood Type Antibody Screen Crossmatch 06/16/24 06/16/24 06/16/24 04:51 05:08 05:25 WBC 12.2 H RBC 2.86 L Hgb 7.8 L Hct 22.7 L MCV 79.4 L MCH 27.3 MCHC 34.4 RDW 17.3 H Plt Count 111 L MPV 10.3 Immature Gran % (Auto) Cancelled Neut % (Auto) Cancelled Lymph % (Auto) Cancelled [place] % (Auto) Cancelled Eos % (Auto) Cancelled Baso % (Auto) Cancelled Lymph # (Auto) Cancelled [place] # (Auto) Cancelled Eos # (Auto) Cancelled Baso # (Auto) Cancelled Abs Immat Gran (auto) Cancelled Absolute Neuts (auto) Cancelled Absolute Nucleated RBC 0.180 H Nucleated RBC % (auto) 1.5 H Neutrophils % (Manual) 68 Band Neutrophils % 14 H Lymphocytes % (Manual) 13 L Monocytes % (Manual) 4 Metamyelocytes % 1 Myelocytes % Abs Neuts (Manual) 10.0 H Lymphocytes # (Manual) 1.6 Monocytes # (Manual) 0.5 Metamyelocytes # 0.1 Myelocytes # Nucleated RBCs Toxic Granulation PRESENT Toxic Vacuolation PRESENT Dohle Bodies PRESENT WBC Morphology Comment Platelet Estimate SLIGHTLY DECREASED Large Platelets PRESENT Giant Platelets Plt Morphology Comment NOTED RBC Morphology NOTED Polychromasia Microcytosis Target Cells Tear Drop Cells Ovalocytes 1+ (5-14) [place] Cells 3+ (>5) Schistocytes 1+ (0-2) Smear Path Review Hold Purple Top PT 28.9 H D INR 2.4 H APTT VBG pH 7.48 H VBG pCO2 32 VBG pO2 50 VBG HCO3 24 VBG O2 Saturation 82.0 VBG Base Excess 1.8 Sodium 146 H Potassium 4.1 Chloride 108 Carbon Dioxide 24 Anion Gap 18 BUN 64 H Creatinine 3.03 H Estim Creat Clear Calc 21.7 Estimated GFR 20 POC Glucose 113 Random Glucose 151 H Lactic Acid Lactic Acid F/U @ 2Hr Lactic Acid F/U @ 4Hr Calcium 10.8 H Phosphorus 4.5 Magnesium 2.3 Iron TIBC % Saturation Unsat Iron Binding Ferritin Total Bilirubin 1.8 H AST 21 ALT 22 Alkaline Phosphatase 153 H Troponin I High Sens B-Natriuretic Peptide Total Protein 7.7 Albumin 4.5 Triglycerides Vitamin B12 Folate TSH Urine Color Urine Appearance Urine pH Ur Specific [place] Urine Protein Urine Glucose (UA) Urine Ketones Urine Blood Urine Nitrite Ur Leukocyte Esterase Urine RBC Urine WBC Ur Squamous Epith Cells Other Crystals Urine Bacteria Hyaline Casts Nasal Screen MRSA (PCR) Nasal S. aureus Screen Nasal MRSA/S.aureus Interp Stool Occult Blood Influenza Type A (PCR) Influenza Type B (PCR) RSV RNA Qual (PCR) SARS-CoV-2 RNA (RT-PCR) Blood Type Antibody Screen Crossmatch 06/16/24 06/16/24 06/16/24 12:06 17:42 19:40 WBC 12.4 H RBC 2.90 L Hgb 7.9 L Hct 23.4 L MCV 80.7 MCH 27.2 MCHC 33.8 RDW 18.2 H Plt Count 107 L MPV 10.4 Immature Gran % (Auto) 1.6 H Neut % (Auto) 77.7 H Lymph % (Auto) 14.9 L [place] % (Auto) 5.6 Eos % (Auto) 0.0 Baso % (Auto) 0.2 Lymph # (Auto) 1.9 [place] # (Auto) 0.7 Eos # (Auto) 0.0 Baso # (Auto) 0.0 Abs Immat Gran (auto) 0.20 H Absolute Neuts (auto) 9.7 H Absolute Nucleated RBC 0.100 H Nucleated RBC % (auto) 0.8 H Neutrophils % (Manual) Band Neutrophils % Lymphocytes % (Manual) Monocytes % (Manual) Metamyelocytes % Myelocytes % Abs Neuts (Manual) Lymphocytes # (Manual) Monocytes # (Manual) Metamyelocytes # Myelocytes # Nucleated RBCs Toxic Granulation Toxic Vacuolation Dohle Bodies WBC Morphology Comment Platelet Estimate Large Platelets Giant Platelets Plt Morphology Comment RBC Morphology Polychromasia Microcytosis Target Cells Tear Drop Cells Ovalocytes [place] Cells Schistocytes Smear Path Review Hold Purple Top PT INR APTT VBG pH VBG pCO2 VBG pO2 VBG HCO3 VBG O2 Saturation VBG Base Excess Sodium 148 H Potassium 3.9 Chloride 112 H Carbon Dioxide 23 Anion Gap 17 BUN 74 H Creatinine 3.13 H Estim Creat Clear Calc 21.0 Estimated GFR 20 POC Glucose 122 H 116 H Random Glucose 121 H Lactic Acid Lactic Acid F/U @ 2Hr Lactic Acid F/U @ 4Hr Calcium 10.8 H Phosphorus 4.6 H Magnesium 2.3 Iron TIBC % Saturation Unsat Iron Binding Ferritin Total Bilirubin AST ALT Alkaline Phosphatase Troponin I High Sens B-Natriuretic Peptide Total Protein Albumin Triglycerides Vitamin B12 Folate TSH Urine Color Urine Appearance Urine pH Ur Specific [place] Urine Protein Urine Glucose (UA) Urine Ketones Urine Blood Urine Nitrite Ur Leukocyte Esterase Urine RBC Urine WBC Ur Squamous Epith Cells Other Crystals Urine Bacteria Hyaline Casts Nasal Screen MRSA (PCR) Nasal S. aureus Screen Nasal MRSA/S.aureus Interp Stool Occult Blood Influenza Type A (PCR) Influenza Type B (PCR) RSV RNA Qual (PCR) SARS-CoV-2 RNA (RT-PCR) Blood Type Antibody Screen Crossmatch 06/16/24 06/16/24 06/17/24 19:47 23:48 05:01 WBC 12.6 H RBC 3.06 L Hgb 8.3 L Hct 25.0 L MCV 81.7 MCH 27.1 MCHC 33.2 RDW 18.1 H Plt Count 112 L MPV 10.4 Immature Gran % (Auto) 1.8 H Neut % (Auto) 72.8 Lymph % (Auto) 18.3 L [place] % (Auto) 6.8 Eos % (Auto) 0.1 Baso % (Auto) 0.2 Lymph # (Auto) 2.3 [place] # (Auto) 0.9 Eos # (Auto) 0.0 Baso # (Auto) 0.0 Abs Immat Gran (auto) 0.22 H Absolute Neuts (auto) 9.1 H Absolute Nucleated RBC 0.090 H Nucleated RBC % (auto) 0.7 H Neutrophils % (Manual) Band Neutrophils % Lymphocytes % (Manual) Monocytes % (Manual) Metamyelocytes % Myelocytes % Abs Neuts (Manual) Lymphocytes # (Manual) Monocytes # (Manual) Metamyelocytes # Myelocytes # Nucleated RBCs Toxic Granulation Toxic Vacuolation Dohle Bodies WBC Morphology Comment Platelet Estimate Large Platelets Giant Platelets Plt Morphology Comment RBC Morphology Polychromasia Microcytosis Target Cells Tear Drop Cells Ovalocytes [place] Cells Schistocytes Smear Path Review Hold Purple Top PT INR APTT VBG pH 7.49 H 7.41 VBG pCO2 30 39 VBG pO2 91 52 VBG HCO3 23 25 VBG O2 Saturation 99.0 81.0 VBG Base Excess 0.7 1.3 Sodium 150 H Potassium 3.9 Chloride 111 H Carbon Dioxide 23 Anion Gap 20 BUN 85 H Creatinine 3.53 H Estim Creat Clear Calc 18.6 Estimated GFR 17 POC Glucose 111 Random Glucose 96 Lactic Acid Lactic Acid F/U @ 2Hr Lactic Acid F/U @ 4Hr Calcium 10.5 H Phosphorus 4.8 H Magnesium 2.3 Iron TIBC % Saturation Unsat Iron Binding Ferritin Total Bilirubin AST ALT Alkaline Phosphatase Troponin I High Sens B-Natriuretic Peptide Total Protein Albumin 4.2 Triglycerides Vitamin B12 Folate TSH Urine Color Urine Appearance Urine pH Ur Specific [place] Urine Protein Urine Glucose (UA) Urine Ketones Urine Blood Urine Nitrite Ur Leukocyte Esterase Urine RBC Urine WBC Ur Squamous Epith Cells Other Crystals Urine Bacteria Hyaline Casts Nasal Screen MRSA (PCR) Nasal S. aureus Screen Nasal MRSA/S.aureus Interp Stool Occult Blood Influenza Type A (PCR) Influenza Type B (PCR) RSV RNA Qual (PCR) SARS-CoV-2 RNA (RT-PCR) Blood Type Antibody Screen Crossmatch 06/17/24 06/17/24 06/17/24 05:50 12:00 17:56 WBC RBC Hgb Hct MCV MCH MCHC RDW Plt Count MPV Immature Gran % (Auto) Neut % (Auto) Lymph % (Auto) [place] % (Auto) Eos % (Auto) Baso % (Auto) Lymph # (Auto) [place] # (Auto) Eos # (Auto) Baso # (Auto) Abs Immat Gran (auto) Absolute Neuts (auto) Absolute Nucleated RBC Nucleated RBC % (auto) Neutrophils % (Manual) Band Neutrophils % Lymphocytes % (Manual) Monocytes % (Manual) Metamyelocytes % Myelocytes % Abs Neuts (Manual) Lymphocytes # (Manual) Monocytes # (Manual) Metamyelocytes # Myelocytes # Nucleated RBCs Toxic Granulation Toxic Vacuolation Dohle Bodies WBC Morphology Comment Platelet Estimate Large Platelets Giant Platelets Plt Morphology Comment RBC Morphology Polychromasia Microcytosis Target Cells Tear Drop Cells Ovalocytes [place] Cells Schistocytes Smear Path Review Hold Purple Top PT INR APTT VBG pH VBG pCO2 VBG pO2 VBG HCO3 VBG O2 Saturation VBG Base Excess Sodium Potassium Chloride Carbon Dioxide Anion Gap BUN Creatinine Estim Creat Clear Calc Estimated GFR POC Glucose 87 78 81 Random Glucose Lactic Acid Lactic Acid F/U @ 2Hr Lactic Acid F/U @ 4Hr Calcium Phosphorus Magnesium Iron TIBC % Saturation Unsat Iron Binding Ferritin Total Bilirubin AST ALT Alkaline Phosphatase Troponin I High Sens B-Natriuretic Peptide Total Protein Albumin Triglycerides Vitamin B12 Folate TSH Urine Color Urine Appearance Urine pH Ur Specific [place] Urine Protein Urine Glucose (UA) Urine Ketones Urine Blood Urine Nitrite Ur Leukocyte Esterase Urine RBC Urine WBC Ur Squamous Epith Cells Other Crystals Urine Bacteria Hyaline Casts Nasal Screen MRSA (PCR) Nasal S. aureus Screen Nasal MRSA/S.aureus Interp Stool Occult Blood Influenza Type A (PCR) Influenza Type B (PCR) RSV RNA Qual (PCR) SARS-CoV-2 RNA (RT-PCR) Blood Type Antibody Screen Crossmatch 06/17/24 06/17/24 06/18/24 20:01 23:14 05:19 WBC 11.4 H RBC 2.96 L Hgb 8.1 L Hct 24.1 L MCV 81.4 MCH 27.4 MCHC 33.6 RDW 17.9 H Plt Count 99 L MPV 9.5 Immature Gran % (Auto) 2.8 H Neut % (Auto) 66.9 Lymph % (Auto) 21.5 [place] % (Auto) 8.3 Eos % (Auto) 0.4 Baso % (Auto) 0.1 Lymph # (Auto) 2.5 [place] # (Auto) 1.0 Eos # (Auto) 0.1 Baso # (Auto) 0.0 Abs Immat Gran (auto) 0.32 H Absolute Neuts (auto) 7.6 Absolute Nucleated RBC 0.060 H Nucleated RBC % (auto) 0.5 H Neutrophils % (Manual) Band Neutrophils % Lymphocytes % (Manual) Monocytes % (Manual) Metamyelocytes % Myelocytes % Abs Neuts (Manual) Lymphocytes # (Manual) Monocytes # (Manual) Metamyelocytes # Myelocytes # Nucleated RBCs Toxic Granulation Toxic Vacuolation Dohle Bodies WBC Morphology Comment Platelet Estimate Large Platelets Giant Platelets Plt Morphology Comment RBC Morphology Polychromasia Microcytosis Target Cells Tear Drop Cells Ovalocytes [place] Cells Schistocytes Smear Path Review Hold Purple Top PT INR APTT VBG pH VBG pCO2 VBG pO2 VBG HCO3 VBG O2 Saturation VBG Base Excess Sodium 153 H 149 H Potassium 4.0 3.8 Chloride 113 H 110 H Carbon Dioxide 23 24 Anion Gap 21 H 19 BUN 102 H 113 H Creatinine 3.76 H 3.86 H Estim Creat Clear Calc 17.5 17.0 Estimated GFR 16 15 POC Glucose 144 H Random Glucose 85 230 H Lactic Acid Lactic Acid F/U @ 2Hr Lactic Acid F/U @ 4Hr Calcium 10.6 H 10.0 Phosphorus 5.3 H 4.5 Magnesium 2.4 2.4 Iron TIBC % Saturation Unsat Iron Binding Ferritin Total Bilirubin 0.7 AST 17 ALT 20 Alkaline Phosphatase 177 H Troponin I High Sens B-Natriuretic Peptide Total Protein 7.6 Albumin 4.1 3.9 Triglycerides Vitamin B12 Folate TSH Urine Color Urine Appearance Urine pH Ur Specific [place] Urine Protein Urine Glucose (UA) Urine Ketones Urine Blood Urine Nitrite Ur Leukocyte Esterase Urine RBC Urine WBC Ur Squamous Epith Cells Other Crystals Urine Bacteria Hyaline Casts Nasal Screen MRSA (PCR) Nasal S. aureus Screen Nasal MRSA/S.aureus Interp Stool Occult Blood Influenza Type A (PCR) Influenza Type B (PCR) RSV RNA Qual (PCR) SARS-CoV-2 RNA (RT-PCR) Blood Type Antibody Screen Crossmatch 06/18/24 06/18/24 06/18/24 05:24 12:06 12:25 WBC RBC Hgb Hct MCV MCH MCHC RDW Plt Count MPV Immature Gran % (Auto) Neut % (Auto) Lymph % (Auto) [place] % (Auto) Eos % (Auto) Baso % (Auto) Lymph # (Auto) [place] # (Auto) Eos # (Auto) Baso # (Auto) Abs Immat Gran (auto) Absolute Neuts (auto) Absolute Nucleated RBC Nucleated RBC % (auto) Neutrophils % (Manual) Band Neutrophils % Lymphocytes % (Manual) Monocytes % (Manual) Metamyelocytes % Myelocytes % Abs Neuts (Manual) Lymphocytes # (Manual) Monocytes # (Manual) Metamyelocytes # Myelocytes # Nucleated RBCs Toxic Granulation Toxic Vacuolation Dohle Bodies WBC Morphology Comment Platelet Estimate Large Platelets Giant Platelets Plt Morphology Comment RBC Morphology Polychromasia Microcytosis Target Cells Tear Drop Cells Ovalocytes [place] Cells Schistocytes Smear Path Review Hold Purple Top PT INR APTT VBG pH 7.41 VBG pCO2 41 VBG pO2 76 VBG HCO3 26 VBG O2 Saturation 95.0 VBG Base Excess 1.8 Sodium Potassium Chloride Carbon Dioxide Anion Gap BUN Creatinine Estim Creat Clear Calc Estimated GFR POC Glucose 193 H Random Glucose Lactic Acid Lactic Acid F/U @ 2Hr Lactic Acid F/U @ 4Hr Calcium Phosphorus Magnesium Iron TIBC % Saturation Unsat Iron Binding Ferritin Total Bilirubin AST ALT Alkaline Phosphatase Troponin I High Sens B-Natriuretic Peptide Total Protein Albumin Triglycerides 194 H Vitamin B12 Folate TSH Urine Color Urine Appearance Urine pH Ur Specific [place] Urine Protein Urine Glucose (UA) Urine Ketones Urine Blood Urine Nitrite Ur Leukocyte Esterase Urine RBC Urine WBC Ur Squamous Epith Cells Other Crystals Urine Bacteria Hyaline Casts Nasal Screen MRSA (PCR) Nasal S. aureus Screen Nasal MRSA/S.aureus Interp Stool Occult Blood Influenza Type A (PCR) Influenza Type B (PCR) RSV RNA Qual (PCR) SARS-CoV-2 RNA (RT-PCR) Blood Type Antibody Screen Crossmatch 06/18/24 06/19/24 06/19/24 18:08 01:01 06:13 WBC 12.5 H RBC 2.91 L Hgb 7.9 L Hct 24.3 L MCV 83.5 MCH 27.1 MCHC 32.5 RDW 17.6 H Plt Count 108 L MPV 10.6 Immature Gran % (Auto) Neut % (Auto) Lymph % (Auto) [place] % (Auto) Eos % (Auto) Baso % (Auto) Lymph # (Auto) [place] # (Auto) Eos # (Auto) Baso # (Auto) Abs Immat Gran (auto) Absolute Neuts (auto) Absolute Nucleated RBC 0.050 H Nucleated RBC % (auto) 0.4 H Neutrophils % (Manual) Band Neutrophils % Lymphocytes % (Manual) Monocytes % (Manual) Metamyelocytes % Myelocytes % Abs Neuts (Manual) Lymphocytes # (Manual) Monocytes # (Manual) Metamyelocytes # Myelocytes # Nucleated RBCs Toxic Granulation Toxic Vacuolation Dohle Bodies WBC Morphology Comment Platelet Estimate Large Platelets Giant Platelets Plt Morphology Comment RBC Morphology Polychromasia Microcytosis Target Cells Tear Drop Cells Ovalocytes [place] Cells Schistocytes Smear Path Review Hold Purple Top PT INR APTT VBG pH VBG pCO2 VBG pO2 VBG HCO3 VBG O2 Saturation VBG Base Excess Sodium 147 H Potassium 3.9 Chloride 111 H Carbon Dioxide 23 Anion Gap 17 BUN 117 H Creatinine 3.52 H Estim Creat Clear Calc 18.7 Estimated GFR 17 POC Glucose 123 H 261 H Random Glucose 256 H Lactic Acid Lactic Acid F/U @ 2Hr Lactic Acid F/U @ 4Hr Calcium 9.7 Phosphorus 3.0 Magnesium 2.6 Iron TIBC % Saturation Unsat Iron Binding Ferritin Total Bilirubin AST ALT Alkaline Phosphatase Troponin I High Sens B-Natriuretic Peptide Total Protein Albumin 3.8 Triglycerides Vitamin B12 Folate TSH Urine Color Urine Appearance Urine pH Ur Specific [place] Urine Protein Urine Glucose (UA) Urine Ketones Urine Blood Urine Nitrite Ur Leukocyte Esterase Urine RBC Urine WBC Ur Squamous Epith Cells Other Crystals Urine Bacteria Hyaline Casts Nasal Screen MRSA (PCR) Nasal S. aureus Screen Nasal MRSA/S.aureus Interp Stool Occult Blood Influenza Type A (PCR) Influenza Type B (PCR) RSV RNA Qual (PCR) SARS-CoV-2 RNA (RT-PCR) Blood Type Antibody Screen Crossmatch 06/19/24 06/19/24 06/19/24 06:20 06:30 07:24 WBC RBC Hgb Hct MCV MCH MCHC RDW Plt Count MPV Immature Gran % (Auto) Neut % (Auto) Lymph % (Auto) [place] % (Auto) Eos % (Auto) Baso % (Auto) Lymph # (Auto) [place] # (Auto) Eos # (Auto) Baso # (Auto) Abs Immat Gran (auto) Absolute Neuts (auto) Absolute Nucleated RBC Nucleated RBC % (auto) Neutrophils % (Manual) Band Neutrophils % Lymphocytes % (Manual) Monocytes % (Manual) Metamyelocytes % Myelocytes % Abs Neuts (Manual) Lymphocytes # (Manual) Monocytes # (Manual) Metamyelocytes # Myelocytes # Nucleated RBCs Toxic Granulation Toxic Vacuolation Dohle Bodies WBC Morphology Comment Platelet Estimate Large Platelets Giant Platelets Plt Morphology Comment RBC Morphology Polychromasia Microcytosis Target Cells Tear Drop Cells Ovalocytes [place] Cells Schistocytes Smear Path Review Hold Purple Top PT INR APTT VBG pH 7.39 VBG pCO2 42 VBG pO2 45 VBG HCO3 26 VBG O2 Saturation 73.0 VBG Base Excess 1.2 Sodium Potassium Chloride Carbon Dioxide Anion Gap BUN Creatinine Estim Creat Clear Calc Estimated GFR POC Glucose 231 H 223 H Random Glucose Lactic Acid Lactic Acid F/U @ 2Hr Lactic Acid F/U @ 4Hr Calcium Phosphorus Magnesium Iron TIBC % Saturation Unsat Iron Binding Ferritin Total Bilirubin AST ALT Alkaline Phosphatase Troponin I High Sens B-Natriuretic Peptide Total Protein Albumin Triglycerides Vitamin B12 Folate TSH Urine Color Urine Appearance Urine pH Ur Specific [place] Urine Protein Urine Glucose (UA) Urine Ketones Urine Blood Urine Nitrite Ur Leukocyte Esterase Urine RBC Urine WBC Ur Squamous Epith Cells Other Crystals Urine Bacteria Hyaline Casts Nasal Screen MRSA (PCR) Nasal S. aureus Screen Nasal MRSA/S.aureus Interp Stool Occult Blood Influenza Type A (PCR) Influenza Type B (PCR) RSV RNA Qual (PCR) SARS-CoV-2 RNA (RT-PCR) Blood Type Antibody Screen Crossmatch 06/19/24 06/19/24 06/19/24 11:28 16:10 17:26 WBC RBC Hgb Hct MCV MCH MCHC RDW Plt Count MPV Immature Gran % (Auto) Neut % (Auto) Lymph % (Auto) [place] % (Auto) Eos % (Auto) Baso % (Auto) Lymph # (Auto) [place] # (Auto) Eos # (Auto) Baso # (Auto) Abs Immat Gran (auto) Absolute Neuts (auto) Absolute Nucleated RBC Nucleated RBC % (auto) Neutrophils % (Manual) Band Neutrophils % Lymphocytes % (Manual) Monocytes % (Manual) Metamyelocytes % Myelocytes % Abs Neuts (Manual) Lymphocytes # (Manual) Monocytes # (Manual) Metamyelocytes # Myelocytes # Nucleated RBCs Toxic Granulation Toxic Vacuolation Dohle Bodies WBC Morphology Comment Platelet Estimate Large Platelets Giant Platelets Plt Morphology Comment RBC Morphology Polychromasia Microcytosis Target Cells Tear Drop Cells Ovalocytes [place] Cells Schistocytes Smear Path Review Hold Purple Top PT INR APTT VBG pH VBG pCO2 VBG pO2 VBG HCO3 VBG O2 Saturation VBG Base Excess Sodium Potassium Chloride Carbon Dioxide Anion Gap BUN Creatinine Estim Creat Clear Calc Estimated GFR POC Glucose 201 H 245 H 223 H Random Glucose Lactic Acid Lactic Acid F/U @ 2Hr Lactic Acid F/U @ 4Hr Calcium Phosphorus Magnesium Iron TIBC % Saturation Unsat Iron Binding Ferritin Total Bilirubin AST ALT Alkaline Phosphatase Troponin I High Sens B-Natriuretic Peptide Total Protein Albumin Triglycerides Vitamin B12 Folate TSH Urine Color Urine Appearance Urine pH Ur Specific [place] Urine Protein Urine Glucose (UA) Urine Ketones Urine Blood Urine Nitrite Ur Leukocyte Esterase Urine RBC Urine WBC Ur Squamous Epith Cells Other Crystals Urine Bacteria Hyaline Casts Nasal Screen MRSA (PCR) Nasal S. aureus Screen Nasal MRSA/S.aureus Interp Stool Occult Blood Influenza Type A (PCR) Influenza Type B (PCR) RSV RNA Qual (PCR) SARS-CoV-2 RNA (RT-PCR) Blood Type Antibody Screen Crossmatch 0906/20/[id number] 06/20/24 23:54 06:03 06:05 WBC RBC Hgb Hct MCV MCH MCHC RDW Plt Count MPV Immature Gran % (Auto) Neut % (Auto) Lymph % (Auto) [place] % (Auto) Eos % (Auto) Baso % (Auto) Lymph # (Auto) [place] # (Auto) Eos # (Auto) Baso # (Auto) Abs Immat Gran (auto) Absolute Neuts (auto) Absolute Nucleated RBC Nucleated RBC % (auto) Neutrophils % (Manual) Band Neutrophils % Lymphocytes % (Manual) Monocytes % (Manual) Metamyelocytes % Myelocytes % Abs Neuts (Manual) Lymphocytes # (Manual) Monocytes # (Manual) Metamyelocytes # Myelocytes # Nucleated RBCs Toxic Granulation Toxic Vacuolation Dohle Bodies WBC Morphology Comment Platelet Estimate Large Platelets Giant Platelets Plt Morphology Comment RBC Morphology Polychromasia Microcytosis Target Cells Tear Drop Cells Ovalocytes [place] Cells Schistocytes Smear Path Review Hold Purple Top PT INR APTT VBG pH VBG pCO2 VBG pO2 VBG HCO3 VBG O2 Saturation VBG Base Excess Sodium Potassium Chloride Carbon Dioxide Anion Gap BUN Creatinine Estim Creat Clear Calc Estimated GFR POC Glucose 309 H 411 H* 395 H* Random Glucose Lactic Acid Lactic Acid F/U @ 2Hr Lactic Acid F/U @ 4Hr Calcium Phosphorus Magnesium Iron TIBC % Saturation Unsat Iron Binding Ferritin Total Bilirubin AST ALT Alkaline Phosphatase Troponin I High Sens B-Natriuretic Peptide Total Protein Albumin Triglycerides Vitamin B12 Folate TSH Urine Color Urine Appearance Urine pH Ur Specific [place] Urine Protein Urine Glucose (UA) Urine Ketones Urine Blood Urine Nitrite Ur Leukocyte Esterase Urine RBC Urine WBC Ur Squamous Epith Cells Other Crystals Urine Bacteria Hyaline Casts Nasal Screen MRSA (PCR) Nasal S. aureus Screen Nasal MRSA/S.aureus Interp Stool Occult Blood Influenza Type A (PCR) Influenza Type B (PCR) RSV RNA Qual (PCR) SARS-CoV-2 RNA (RT-PCR) Blood Type Antibody Screen Crossmatch 06/20/24 06/20/24 06/20/24 06:42 08:10 10:45 WBC 11.3 H RBC 2.74 L Hgb 7.9 L Hct 23.0 L MCV 83.9 MCH 28.8 MCHC 34.3 RDW 17.8 H Plt Count 143 L D MPV 11.2 Immature Gran % (Auto) Neut % (Auto) Lymph % (Auto) [place] % (Auto) Eos % (Auto) Baso % (Auto) Lymph # (Auto) [place] # (Auto) Eos # (Auto) Baso # (Auto) Abs Immat Gran (auto) Absolute Neuts (auto) Absolute Nucleated RBC 0.040 H Nucleated RBC % (auto) 0.4 H Neutrophils % (Manual) Band Neutrophils % Lymphocytes % (Manual) Monocytes % (Manual) Metamyelocytes % Myelocytes % Abs Neuts (Manual) Lymphocytes # (Manual) Monocytes # (Manual) Metamyelocytes # Myelocytes # Nucleated RBCs Toxic Granulation Toxic Vacuolation Dohle Bodies WBC Morphology Comment Platelet Estimate Large Platelets Giant Platelets Plt Morphology Comment RBC Morphology Polychromasia Microcytosis Target Cells Tear Drop Cells Ovalocytes [place] Cells Schistocytes Smear Path Review Hold Purple Top PT INR APTT VBG pH VBG pCO2 VBG pO2 VBG HCO3 VBG O2 Saturation VBG Base Excess Sodium 143 Potassium 4.5 Chloride 108 Carbon Dioxide 23 Anion Gap 17 BUN 120 H Creatinine 3.01 H Estim Creat Clear Calc 21.8 Estimated GFR 20 POC Glucose 360 H* 206 H Random Glucose 451 H* Lactic Acid Lactic Acid F/U @ 2Hr Lactic Acid F/U @ 4Hr Calcium 9.3 Phosphorus 2.0 L Magnesium 2.5 Iron TIBC % Saturation Unsat Iron Binding Ferritin Total Bilirubin AST ALT Alkaline Phosphatase Troponin I High Sens B-Natriuretic Peptide Total Protein Albumin 3.7 Triglycerides Vitamin B12 Folate TSH Urine Color Urine Appearance Urine pH Ur Specific [place] Urine Protein Urine Glucose (UA) Urine Ketones Urine Blood Urine Nitrite Ur Leukocyte Esterase Urine RBC Urine WBC Ur Squamous Epith Cells Other Crystals Urine Bacteria Hyaline Casts Nasal Screen MRSA (PCR) Nasal S. aureus Screen Nasal MRSA/S.aureus Interp Stool Occult Blood Influenza Type A (PCR) Influenza Type B (PCR) RSV RNA Qual (PCR) SARS-CoV-2 RNA (RT-PCR) Blood Type Antibody Screen Crossmatch 06/20/24 06/20/24 06/20/24 15:14 20:43 23:37 WBC RBC Hgb Hct MCV MCH MCHC RDW Plt Count MPV Immature Gran % (Auto) Neut % (Auto) Lymph % (Auto) [place] % (Auto) Eos % (Auto) Baso % (Auto) Lymph # (Auto) [place] # (Auto) Eos # (Auto) Baso # (Auto) Abs Immat Gran (auto) Absolute Neuts (auto) Absolute Nucleated RBC Nucleated RBC % (auto) Neutrophils % (Manual) Band Neutrophils % Lymphocytes % (Manual) Monocytes % (Manual) Metamyelocytes % Myelocytes % Abs Neuts (Manual) Lymphocytes # (Manual) Monocytes # (Manual) Metamyelocytes # Myelocytes # Nucleated RBCs Toxic Granulation Toxic Vacuolation Dohle Bodies WBC Morphology Comment Platelet Estimate Large Platelets Giant Platelets Plt Morphology Comment RBC Morphology Polychromasia Microcytosis Target Cells Tear Drop Cells Ovalocytes [place] Cells Schistocytes Smear Path Review Hold Purple Top PT INR APTT VBG pH VBG pCO2 VBG pO2 VBG HCO3 VBG O2 Saturation VBG Base Excess Sodium Potassium Chloride Carbon Dioxide Anion Gap BUN Creatinine Estim Creat Clear Calc Estimated GFR POC Glucose 156 H 194 H 286 H Random Glucose Lactic Acid Lactic Acid F/U @ 2Hr Lactic Acid F/U @ 4Hr Calcium Phosphorus Magnesium Iron TIBC % Saturation Unsat Iron Binding Ferritin Total Bilirubin AST ALT Alkaline Phosphatase Troponin I High Sens B-Natriuretic Peptide Total Protein Albumin Triglycerides Vitamin B12 Folate TSH Urine Color Urine Appearance Urine pH Ur Specific [place] Urine Protein Urine Glucose (UA) Urine Ketones Urine Blood Urine Nitrite Ur Leukocyte Esterase Urine RBC Urine WBC Ur Squamous Epith Cells Other Crystals Urine Bacteria Hyaline Casts Nasal Screen MRSA (PCR) Nasal S. aureus Screen Nasal MRSA/S.aureus Interp Stool Occult Blood Influenza Type A (PCR) Influenza Type B (PCR) RSV RNA Qual (PCR) SARS-CoV-2 RNA (RT-PCR) Blood Type Antibody Screen Crossmatch 06/21/24 06/21/24 06/21/24 05:10 07:16 12:26 WBC 10.8 RBC 2.80 L Hgb 7.5 L Hct 24.0 L MCV 85.7 MCH 26.8 L MCHC 31.3 RDW 17.9 H Plt Count 178 MPV 11.1 Immature Gran % (Auto) Neut % (Auto) Lymph % (Auto) [place] % (Auto) Eos % (Auto) Baso % (Auto) Lymph # (Auto) [place] # (Auto) Eos # (Auto) Baso # (Auto) Abs Immat Gran (auto) Absolute Neuts (auto) Absolute Nucleated RBC 0.020 H Nucleated RBC % (auto) 0.2 Neutrophils % (Manual) Band Neutrophils % Lymphocytes % (Manual) Monocytes % (Manual) Metamyelocytes % Myelocytes % Abs Neuts (Manual) Lymphocytes # (Manual) Monocytes # (Manual) Metamyelocytes # Myelocytes # Nucleated RBCs Toxic Granulation Toxic Vacuolation Dohle Bodies WBC Morphology Comment Platelet Estimate Large Platelets Giant Platelets Plt Morphology Comment RBC Morphology Polychromasia Microcytosis Target Cells Tear Drop Cells Ovalocytes [place] Cells Schistocytes Smear Path Review Hold Purple Top PT INR APTT VBG pH VBG pCO2 VBG pO2 VBG HCO3 VBG O2 Saturation VBG Base Excess Sodium 149 H Potassium 4.6 Chloride 116 H Carbon Dioxide 23 Anion Gap 15 BUN 119 H Creatinine 2.84 H Estim Creat Clear Calc 23.2 Estimated GFR 22 POC Glucose 178 H 95 Random Glucose 131 H Lactic Acid Lactic Acid F/U @ 2Hr Lactic Acid F/U @ 4Hr Calcium 9.7 Phosphorus 3.2 Magnesium 2.7 H Iron 20 L TIBC 188 L % Saturation 11 L Unsat Iron Binding 168 Ferritin 157 Total Bilirubin AST ALT Alkaline Phosphatase Troponin I High Sens B-Natriuretic Peptide Total Protein Albumin 3.5 Triglycerides Vitamin B12 Folate TSH Urine Color Urine Appearance Urine pH Ur Specific [place] Urine Protein Urine Glucose (UA) Urine Ketones Urine Blood Urine Nitrite Ur Leukocyte Esterase Urine RBC Urine WBC Ur Squamous Epith Cells Other Crystals Urine Bacteria Hyaline Casts Nasal Screen MRSA (PCR) Nasal S. aureus Screen Nasal MRSA/S.aureus Interp Stool Occult Blood Influenza Type A (PCR) Influenza Type B (PCR) RSV RNA Qual (PCR) SARS-CoV-2 RNA (RT-PCR) Blood Type Antibody Screen Crossmatch 06/21/24 06/21/24 06/21/24 16:23 17:34 21:46 WBC RBC Hgb 7.3 L Hct 22.9 L MCV MCH MCHC RDW Plt Count MPV Immature Gran % (Auto) Neut % (Auto) Lymph % (Auto) [place] % (Auto) Eos % (Auto) Baso % (Auto) Lymph # (Auto) [place] # (Auto) Eos # (Auto) Baso # (Auto) Abs Immat Gran (auto) Absolute Neuts (auto) Absolute Nucleated RBC Nucleated RBC % (auto) Neutrophils % (Manual) Band Neutrophils % Lymphocytes % (Manual) Monocytes % (Manual) Metamyelocytes % Myelocytes % Abs Neuts (Manual) Lymphocytes # (Manual) Monocytes # (Manual) Metamyelocytes # Myelocytes # Nucleated RBCs Toxic Granulation Toxic Vacuolation Dohle Bodies WBC Morphology Comment Platelet Estimate Large Platelets Giant Platelets Plt Morphology Comment RBC Morphology Polychromasia Microcytosis Target Cells Tear Drop Cells Ovalocytes [place] Cells Schistocytes Smear Path Review Hold Purple Top PT INR APTT VBG pH VBG pCO2 VBG pO2 VBG HCO3 VBG O2 Saturation VBG Base Excess Sodium 149 H Potassium Chloride Carbon Dioxide Anion Gap BUN Creatinine Estim Creat Clear Calc Estimated GFR POC Glucose 288 H 265 H Random Glucose Lactic Acid Lactic Acid F/U @ 2Hr Lactic Acid F/U @ 4Hr Calcium Phosphorus Magnesium Iron TIBC % Saturation Unsat Iron Binding Ferritin Total Bilirubin AST ALT Alkaline Phosphatase Troponin I High Sens B-Natriuretic Peptide Total Protein Albumin Triglycerides Vitamin B12 Folate TSH Urine Color Urine Appearance Urine pH Ur Specific [place] Urine Protein Urine Glucose (UA) Urine Ketones Urine Blood Urine Nitrite Ur Leukocyte Esterase Urine RBC Urine WBC Ur Squamous Epith Cells Other Crystals Urine Bacteria Hyaline Casts Nasal Screen MRSA (PCR) Nasal S. aureus Screen Nasal MRSA/S.aureus Interp Stool Occult Blood Influenza Type A (PCR) Influenza Type B (PCR) RSV RNA Qual (PCR) SARS-CoV-2 RNA (RT-PCR) Blood Type Antibody Screen Crossmatch 06/22/24 06/22/24 06/22/24 06:11 07:06 12:01 WBC RBC Hgb 7.2 L Hct 22.6 L MCV MCH MCHC RDW Plt Count MPV Immature Gran % (Auto) Neut % (Auto) Lymph % (Auto) [place] % (Auto) Eos % (Auto) Baso % (Auto) Lymph # (Auto) [place] # (Auto) Eos # (Auto) Baso # (Auto) Abs Immat Gran (auto) Absolute Neuts (auto) Absolute Nucleated RBC Nucleated RBC % (auto) Neutrophils % (Manual) Band Neutrophils % Lymphocytes % (Manual) Monocytes % (Manual) Metamyelocytes % Myelocytes % Abs Neuts (Manual) Lymphocytes # (Manual) Monocytes # (Manual) Metamyelocytes # Myelocytes # Nucleated RBCs Toxic Granulation Toxic Vacuolation Dohle Bodies WBC Morphology Comment Platelet Estimate Large Platelets Giant Platelets Plt Morphology Comment RBC Morphology Polychromasia Microcytosis Target Cells Tear Drop Cells Ovalocytes [place] Cells Schistocytes Smear Path Review Hold Purple Top PT INR APTT VBG pH VBG pCO2 VBG pO2 VBG HCO3 VBG O2 Saturation VBG Base Excess Sodium 148 H Potassium 4.7 Chloride 115 H Carbon Dioxide 25 Anion Gap 13 BUN 119 H Creatinine 2.50 H Estim Creat Clear Calc 26.3 Estimated GFR 25 POC Glucose 168 H 133 H Random Glucose 206 H Lactic Acid Lactic Acid F/U @ 2Hr Lactic Acid F/U @ 4Hr Calcium 9.4 Phosphorus 3.6 Magnesium 2.5 Iron TIBC % Saturation Unsat Iron Binding Ferritin Total Bilirubin AST ALT Alkaline Phosphatase Troponin I High Sens B-Natriuretic Peptide Total Protein Albumin 3.3 L Triglycerides Vitamin B12 Folate TSH Urine Color Urine Appearance Urine pH Ur Specific [place] Urine Protein Urine Glucose (UA) Urine Ketones Urine Blood Urine Nitrite Ur Leukocyte Esterase Urine RBC Urine WBC Ur Squamous Epith Cells Other Crystals Urine Bacteria Hyaline Casts Nasal Screen MRSA (PCR) Nasal S. aureus Screen Nasal MRSA/S.aureus Interp Stool Occult Blood Influenza Type A (PCR) Influenza Type B (PCR) RSV RNA Qual (PCR) SARS-CoV-2 RNA (RT-PCR) Blood Type Antibody Screen Crossmatch 06/22/24 06/22/24 06/22/24 12:03 12:15 15:51 WBC RBC Hgb Hct MCV MCH MCHC RDW Plt Count MPV Immature Gran % (Auto) Neut % (Auto) Lymph % (Auto) [place] % (Auto) Eos % (Auto) Baso % (Auto) Lymph # (Auto) [place] # (Auto) Eos # (Auto) Baso # (Auto) Abs Immat Gran (auto) Absolute Neuts (auto) Absolute Nucleated RBC Nucleated RBC % (auto) Neutrophils % (Manual) Band Neutrophils % Lymphocytes % (Manual) Monocytes % (Manual) Metamyelocytes % Myelocytes % Abs Neuts (Manual) Lymphocytes # (Manual) Monocytes # (Manual) Metamyelocytes # Myelocytes # Nucleated RBCs Toxic Granulation Toxic Vacuolation Dohle Bodies WBC Morphology Comment Platelet Estimate Large Platelets Giant Platelets Plt Morphology Comment RBC Morphology Polychromasia Microcytosis Target Cells Tear Drop Cells Ovalocytes [place] Cells Schistocytes Smear Path Review Hold Purple Top PT INR APTT VBG pH VBG pCO2 VBG pO2 VBG HCO3 VBG O2 Saturation VBG Base Excess Sodium Potassium Chloride Carbon Dioxide Anion Gap BUN Creatinine Estim Creat Clear Calc Estimated GFR POC Glucose 134 H 202 H Random Glucose Lactic Acid Lactic Acid F/U @ 2Hr Lactic Acid F/U @ 4Hr Calcium Phosphorus Magnesium Iron TIBC % Saturation Unsat Iron Binding Ferritin Total Bilirubin AST ALT Alkaline Phosphatase Troponin I High Sens B-Natriuretic Peptide Total Protein Albumin Triglycerides Vitamin B12 Folate TSH Urine Color Urine Appearance Urine pH Ur Specific [place] Urine Protein Urine Glucose (UA) Urine Ketones Urine Blood Urine Nitrite Ur Leukocyte Esterase Urine RBC Urine WBC Ur Squamous Epith Cells Other Crystals Urine Bacteria Hyaline Casts Nasal Screen MRSA (PCR) NEGATIVE Nasal S. aureus Screen NEGATIVE Nasal MRSA/S.aureus Interp SEE NOTE Stool Occult Blood Influenza Type A (PCR) Influenza Type B (PCR) RSV RNA Qual (PCR) SARS-CoV-2 RNA (RT-PCR) Blood Type Antibody Screen Crossmatch 06/22/24 06/22/24 06/23/24 18:17 21:02 06:18 WBC RBC Hgb 7.2 L Hct 22.5 L MCV MCH MCHC RDW Plt Count MPV Immature Gran % (Auto) Neut % (Auto) Lymph % (Auto) [place] % (Auto) Eos % (Auto) Baso % (Auto) Lymph # (Auto) [place] # (Auto) Eos # (Auto) Baso # (Auto) Abs Immat Gran (auto) Absolute Neuts (auto) Absolute Nucleated RBC Nucleated RBC % (auto) Neutrophils % (Manual) Band Neutrophils % Lymphocytes % (Manual) Monocytes % (Manual) Metamyelocytes % Myelocytes % Abs Neuts (Manual) Lymphocytes # (Manual) Monocytes # (Manual) Metamyelocytes # Myelocytes # Nucleated RBCs Toxic Granulation Toxic Vacuolation Dohle Bodies WBC Morphology Comment Platelet Estimate Large Platelets Giant Platelets Plt Morphology Comment RBC Morphology Polychromasia Microcytosis Target Cells Tear Drop Cells Ovalocytes [place] Cells Schistocytes Smear Path Review Hold Purple Top PT INR APTT VBG pH VBG pCO2 VBG pO2 VBG HCO3 VBG O2 Saturation VBG Base Excess Sodium 147 H 146 H Potassium 4.6 Chloride 114 H Carbon Dioxide 25 Anion Gap 12 BUN 104 H Creatinine 2.40 H Estim Creat Clear Calc 27.4 Estimated GFR 27 POC Glucose 177 H Random Glucose 314 H Lactic Acid Lactic Acid F/U @ 2Hr Lactic Acid F/U @ 4Hr Calcium 9.3 Phosphorus 3.4 Magnesium 2.2 Iron TIBC % Saturation Unsat Iron Binding Ferritin Total Bilirubin AST ALT Alkaline Phosphatase Troponin I High Sens B-Natriuretic Peptide Total Protein Albumin 3.1 L Triglycerides Vitamin B12 Folate TSH Urine Color Urine Appearance Urine pH Ur Specific [place] Urine Protein Urine Glucose (UA) Urine Ketones Urine Blood Urine Nitrite Ur Leukocyte Esterase Urine RBC Urine WBC Ur Squamous Epith Cells Other Crystals Urine Bacteria Hyaline Casts Nasal Screen MRSA (PCR) Nasal S. aureus Screen Nasal MRSA/S.aureus Interp Stool Occult Blood Influenza Type A (PCR) Influenza Type B (PCR) RSV RNA Qual (PCR) SARS-CoV-2 RNA (RT-PCR) Blood Type Antibody Screen Crossmatch 06/23/24 06/23/24 06/23/24 07:15 09:13 11:13 WBC RBC Hgb Hct MCV MCH MCHC RDW Plt Count MPV Immature Gran % (Auto) Neut % (Auto) Lymph % (Auto) [place] % (Auto) Eos % (Auto) Baso % (Auto) Lymph # (Auto) [place] # (Auto) Eos # (Auto) Baso # (Auto) Abs Immat Gran (auto) Absolute Neuts (auto) Absolute Nucleated RBC Nucleated RBC % (auto) Neutrophils % (Manual) Band Neutrophils % Lymphocytes % (Manual) Monocytes % (Manual) Metamyelocytes % Myelocytes % Abs Neuts (Manual) Lymphocytes # (Manual) Monocytes # (Manual) Metamyelocytes # Myelocytes # Nucleated RBCs Toxic Granulation Toxic Vacuolation Dohle Bodies WBC Morphology Comment Platelet Estimate Large Platelets Giant Platelets Plt Morphology Comment RBC Morphology Polychromasia Microcytosis Target Cells Tear Drop Cells Ovalocytes [place] Cells Schistocytes Smear Path Review Hold Purple Top PT INR APTT VBG pH VBG pCO2 VBG pO2 VBG HCO3 VBG O2 Saturation VBG Base Excess Sodium Potassium Chloride Carbon Dioxide Anion Gap BUN Creatinine Estim Creat Clear Calc Estimated GFR POC Glucose 267 H 300 H Random Glucose Lactic Acid Lactic Acid F/U @ 2Hr Lactic Acid F/U @ 4Hr Calcium Phosphorus Magnesium Iron TIBC % Saturation Unsat Iron Binding Ferritin Total Bilirubin AST ALT Alkaline Phosphatase Troponin I High Sens B-Natriuretic Peptide Total Protein Albumin Triglycerides Vitamin B12 1669 H Folate 13.1 TSH Urine Color Urine Appearance Urine pH Ur Specific [place] Urine Protein Urine Glucose (UA) Urine Ketones Urine Blood Urine Nitrite Ur Leukocyte Esterase Urine RBC Urine WBC Ur Squamous Epith Cells Other Crystals Urine Bacteria Hyaline Casts Nasal Screen MRSA (PCR) Nasal S. aureus Screen Nasal MRSA/S.aureus Interp Stool Occult Blood Influenza Type A (PCR) Influenza Type B (PCR) RSV RNA Qual (PCR) SARS-CoV-2 RNA (RT-PCR) Blood Type O Positive Antibody Screen NEGATIVE Crossmatch See Detail 06/23/24 06/23/24 06/24/24 16:25 20:50 06:03 WBC 14.3 H RBC 2.61 L Hgb 7.3 L Hct 21.7 L MCV 83.1 MCH 28.0 MCHC 33.6 RDW 17.1 H Plt Count 262 D MPV 10.2 Immature Gran % (Auto) Neut % (Auto) Lymph % (Auto) [place] % (Auto) Eos % (Auto) Baso % (Auto) Lymph # (Auto) [place] # (Auto) Eos # (Auto) Baso # (Auto) Abs Immat Gran (auto) Absolute Neuts (auto) Absolute Nucleated RBC 0.020 H Nucleated RBC % (auto) 0.1 Neutrophils % (Manual) Band Neutrophils % Lymphocytes % (Manual) Monocytes % (Manual) Metamyelocytes % Myelocytes % Abs Neuts (Manual) Lymphocytes # (Manual) Monocytes # (Manual) Metamyelocytes # Myelocytes # Nucleated RBCs Toxic Granulation Toxic Vacuolation Dohle Bodies WBC Morphology Comment Platelet Estimate Large Platelets Giant Platelets Plt Morphology Comment RBC Morphology Polychromasia Microcytosis Target Cells Tear Drop Cells Ovalocytes [place] Cells Schistocytes Smear Path Review Hold Purple Top PT 14.8 H INR 1.3 H APTT VBG pH VBG pCO2 VBG pO2 VBG HCO3 VBG O2 Saturation VBG Base Excess Sodium 152 H Potassium 4.1 Chloride 116 H Carbon Dioxide 27 Anion Gap 13 BUN 75 H Creatinine 1.99 H Estim Creat Clear Calc 33.1 Estimated GFR 33 POC Glucose 160 H 90 Random Glucose 69 Lactic Acid Lactic Acid F/U @ 2Hr Lactic Acid F/U @ 4Hr Calcium 9.5 Phosphorus 2.7 Magnesium 2.1 Iron TIBC % Saturation Unsat Iron Binding Ferritin Total Bilirubin AST ALT Alkaline Phosphatase Troponin I High Sens B-Natriuretic Peptide Total Protein Albumin 3.9 Triglycerides Vitamin B12 Folate TSH Urine Color Urine Appearance Urine pH Ur Specific [place] Urine Protein Urine Glucose (UA) Urine Ketones Urine Blood Urine Nitrite Ur Leukocyte Esterase Urine RBC Urine WBC Ur Squamous Epith Cells Other Crystals Urine Bacteria Hyaline Casts Nasal Screen MRSA (PCR) Nasal S. aureus Screen Nasal MRSA/S.aureus Interp Stool Occult Blood Influenza Type A (PCR) Influenza Type B (PCR) RSV RNA Qual (PCR) SARS-CoV-2 RNA (RT-PCR) Blood Type Antibody Screen Crossmatch 06/24/24 06/24/24 06/24/24 07:30 11:07 16:20 WBC RBC Hgb Hct MCV MCH MCHC RDW Plt Count MPV Immature Gran % (Auto) Neut % (Auto) Lymph % (Auto) [place] % (Auto) Eos % (Auto) Baso % (Auto) Lymph # (Auto) [place] # (Auto) Eos # (Auto) Baso # (Auto) Abs Immat Gran (auto) Absolute Neuts (auto) Absolute Nucleated RBC Nucleated RBC % (auto) Neutrophils % (Manual) Band Neutrophils % Lymphocytes % (Manual) Monocytes % (Manual) Metamyelocytes % Myelocytes % Abs Neuts (Manual) Lymphocytes # (Manual) Monocytes # (Manual) Metamyelocytes # Myelocytes # Nucleated RBCs Toxic Granulation Toxic Vacuolation Dohle Bodies WBC Morphology Comment Platelet Estimate Large Platelets Giant Platelets Plt Morphology Comment RBC Morphology Polychromasia Microcytosis Target Cells Tear Drop Cells Ovalocytes [place] Cells Schistocytes Smear Path Review Hold Purple Top PT INR APTT VBG pH VBG pCO2 VBG pO2 VBG HCO3 VBG O2 Saturation VBG Base Excess Sodium Potassium Chloride Carbon Dioxide Anion Gap BUN Creatinine Estim Creat Clear Calc Estimated GFR POC Glucose 67 120 H 86 Random Glucose Lactic Acid Lactic Acid F/U @ 2Hr Lactic Acid F/U @ 4Hr Calcium Phosphorus Magnesium Iron TIBC % Saturation Unsat Iron Binding Ferritin Total Bilirubin AST ALT Alkaline Phosphatase Troponin I High Sens B-Natriuretic Peptide Total Protein Albumin Triglycerides Vitamin B12 Folate TSH Urine Color Urine Appearance Urine pH Ur Specific [place] Urine Protein Urine Glucose (UA) Urine Ketones Urine Blood Urine Nitrite Ur Leukocyte Esterase Urine RBC Urine WBC Ur Squamous Epith Cells Other Crystals Urine Bacteria Hyaline Casts Nasal Screen MRSA (PCR) Nasal S. aureus Screen Nasal MRSA/S.aureus Interp Stool Occult Blood Influenza Type A (PCR) Influenza Type B (PCR) RSV RNA Qual (PCR) SARS-CoV-2 RNA (RT-PCR) Blood Type Antibody Screen Crossmatch 06/24/24 06/25/24 06/25/24 19:22 06:53 07:40 WBC RBC Hgb 8.8 L D Hct 26.7 L D MCV MCH MCHC RDW Plt Count MPV Immature Gran % (Auto) Neut % (Auto) Lymph % (Auto) [place] % (Auto) Eos % (Auto) Baso % (Auto) Lymph # (Auto) [place] # (Auto) Eos # (Auto) Baso # (Auto) Abs Immat Gran (auto) Absolute Neuts (auto) Absolute Nucleated RBC Nucleated RBC % (auto) Neutrophils % (Manual) Band Neutrophils % Lymphocytes % (Manual) Monocytes % (Manual) Metamyelocytes % Myelocytes % Abs Neuts (Manual) Lymphocytes # (Manual) Monocytes # (Manual) Metamyelocytes # Myelocytes # Nucleated RBCs Toxic Granulation Toxic Vacuolation Dohle Bodies WBC Morphology Comment Platelet Estimate Large Platelets Giant Platelets Plt Morphology Comment RBC Morphology Polychromasia Microcytosis Target Cells Tear Drop Cells Ovalocytes [place] Cells Schistocytes Smear Path Review Hold Purple Top PT INR APTT VBG pH VBG pCO2 VBG pO2 VBG HCO3 VBG O2 Saturation VBG Base Excess Sodium 149 H Potassium 3.9 Chloride 113 H Carbon Dioxide 26 Anion Gap 14 BUN 59 H Creatinine 2.14 H Estim Creat Clear Calc 30.7 Estimated GFR 30 POC Glucose 103 163 H Random Glucose 154 H Lactic Acid Lactic Acid F/U @ 2Hr Lactic Acid F/U @ 4Hr Calcium 9.4 Phosphorus Magnesium 1.9 Iron TIBC % Saturation Unsat Iron Binding Ferritin Total Bilirubin AST ALT Alkaline Phosphatase Troponin I High Sens B-Natriuretic Peptide Total Protein Albumin Triglycerides Vitamin B12 Folate TSH Urine Color Urine Appearance Urine pH Ur Specific [place] Urine Protein Urine Glucose (UA) Urine Ketones Urine Blood Urine Nitrite Ur Leukocyte Esterase Urine RBC Urine WBC Ur Squamous Epith Cells Other Crystals Urine Bacteria Hyaline Casts Nasal Screen MRSA (PCR) Nasal S. aureus Screen Nasal MRSA/S.aureus Interp Stool Occult Blood Influenza Type A (PCR) Influenza Type B (PCR) RSV RNA Qual (PCR) SARS-CoV-2 RNA (RT-PCR) Blood Type Antibody Screen Crossmatch 06/25/24 06/25/24 06/25/24 11:07 15:55 21:21 WBC RBC Hgb Hct MCV MCH MCHC RDW Plt Count MPV Immature Gran % (Auto) Neut % (Auto) Lymph % (Auto) [place] % (Auto) Eos % (Auto) Baso % (Auto) Lymph # (Auto) [place] # (Auto) Eos # (Auto) Baso # (Auto) Abs Immat Gran (auto) Absolute Neuts (auto) Absolute Nucleated RBC Nucleated RBC % (auto) Neutrophils % (Manual) Band Neutrophils % Lymphocytes % (Manual) Monocytes % (Manual) Metamyelocytes % Myelocytes % Abs Neuts (Manual) Lymphocytes # (Manual) Monocytes # (Manual) Metamyelocytes # Myelocytes # Nucleated RBCs Toxic Granulation Toxic Vacuolation Dohle Bodies WBC Morphology Comment Platelet Estimate Large Platelets Giant Platelets Plt Morphology Comment RBC Morphology Polychromasia Microcytosis Target Cells Tear Drop Cells Ovalocytes [place] Cells Schistocytes Smear Path Review Hold Purple Top PT INR APTT VBG pH VBG pCO2 VBG pO2 VBG HCO3 VBG O2 Saturation VBG Base Excess Sodium Potassium Chloride Carbon Dioxide Anion Gap BUN Creatinine Estim Creat Clear Calc Estimated GFR POC Glucose 122 H 182 H 202 H Random Glucose Lactic Acid Lactic Acid F/U @ 2Hr Lactic Acid F/U @ 4Hr Calcium Phosphorus Magnesium Iron TIBC % Saturation Unsat Iron Binding Ferritin Total Bilirubin AST ALT Alkaline Phosphatase Troponin I High Sens B-Natriuretic Peptide Total Protein Albumin Triglycerides Vitamin B12 Folate TSH Urine Color Urine Appearance Urine pH Ur Specific [place] Urine Protein Urine Glucose (UA) Urine Ketones Urine Blood Urine Nitrite Ur Leukocyte Esterase Urine RBC Urine WBC Ur Squamous Epith Cells Other Crystals Urine Bacteria Hyaline Casts Nasal Screen MRSA (PCR) Nasal S. aureus Screen Nasal MRSA/S.aureus Interp Stool Occult Blood Influenza Type A (PCR) Influenza Type B (PCR) RSV RNA Qual (PCR) SARS-CoV-2 RNA (RT-PCR) Blood Type Antibody Screen Crossmatch 06/26/24 06/26/24 06/26/24 06:16 07:26 08:25 WBC RBC Hgb 8.5 L Hct 25.9 L MCV MCH MCHC RDW Plt Count MPV Immature Gran % (Auto) Neut % (Auto) Lymph % (Auto) [place] % (Auto) Eos % (Auto) Baso % (Auto) Lymph # (Auto) [place] # (Auto) Eos # (Auto) Baso # (Auto) Abs Immat Gran (auto) Absolute Neuts (auto) Absolute Nucleated RBC Nucleated RBC % (auto) Neutrophils % (Manual) Band Neutrophils % Lymphocytes % (Manual) Monocytes % (Manual) Metamyelocytes % Myelocytes % Abs Neuts (Manual) Lymphocytes # (Manual) Monocytes # (Manual) Metamyelocytes # Myelocytes # Nucleated RBCs Toxic Granulation Toxic Vacuolation Dohle Bodies WBC Morphology Comment Platelet Estimate Large Platelets Giant Platelets Plt Morphology Comment RBC Morphology Polychromasia Microcytosis Target Cells Tear Drop Cells Ovalocytes [place] Cells Schistocytes Smear Path Review Hold Purple Top PT INR APTT VBG pH VBG pCO2 VBG pO2 VBG HCO3 VBG O2 Saturation VBG Base Excess Sodium 150 H Potassium 4.0 Chloride 114 H Carbon Dioxide 26 Anion Gap 14 BUN 60 H Creatinine 2.13 H Estim Creat Clear Calc 30.9 Estimated GFR 30 POC Glucose 134 H Random Glucose 148 H Lactic Acid Lactic Acid F/U @ 2Hr Lactic Acid F/U @ 4Hr Calcium 9.5 Phosphorus Magnesium Iron TIBC % Saturation Unsat Iron Binding Ferritin Total Bilirubin AST ALT Alkaline Phosphatase Troponin I High Sens B-Natriuretic Peptide Total Protein Albumin Triglycerides Vitamin B12 Folate TSH Urine Color Urine Appearance Urine pH Ur Specific [place] Urine Protein Urine Glucose (UA) Urine Ketones Urine Blood Urine Nitrite Ur Leukocyte Esterase Urine RBC Urine WBC Ur Squamous Epith Cells Other Crystals Urine Bacteria Hyaline Casts Nasal Screen MRSA (PCR) Nasal S. aureus Screen Nasal MRSA/S.aureus Interp Stool Occult Blood Influenza Type A (PCR) Influenza Type B (PCR) RSV RNA Qual (PCR) SARS-CoV-2 RNA (RT-PCR) Blood Type Antibody Screen Crossmatch 06/26/24 06/26/24 06/26/24 11:15 16:25 20:23 WBC RBC Hgb Hct MCV MCH MCHC RDW Plt Count MPV Immature Gran % (Auto) Neut % (Auto) Lymph % (Auto) [place] % (Auto) Eos % (Auto) Baso % (Auto) Lymph # (Auto) [place] # (Auto) Eos # (Auto) Baso # (Auto) Abs Immat Gran (auto) Absolute Neuts (auto) Absolute Nucleated RBC Nucleated RBC % (auto) Neutrophils % (Manual) Band Neutrophils % Lymphocytes % (Manual) Monocytes % (Manual) Metamyelocytes % Myelocytes % Abs Neuts (Manual) Lymphocytes # (Manual) Monocytes # (Manual) Metamyelocytes # Myelocytes # Nucleated RBCs Toxic Granulation Toxic Vacuolation Dohle Bodies WBC Morphology Comment Platelet Estimate Large Platelets Giant Platelets Plt Morphology Comment RBC Morphology Polychromasia Microcytosis Target Cells Tear Drop Cells Ovalocytes [place] Cells Schistocytes Smear Path Review Hold Purple Top PT INR APTT VBG pH VBG pCO2 VBG pO2 VBG HCO3 VBG O2 Saturation VBG Base Excess Sodium 146 H Potassium Chloride Carbon Dioxide Anion Gap BUN Creatinine Estim Creat Clear Calc Estimated GFR POC Glucose 216 H 175 H Random Glucose Lactic Acid Lactic Acid F/U @ 2Hr Lactic Acid F/U @ 4Hr Calcium Phosphorus Magnesium Iron TIBC % Saturation Unsat Iron Binding Ferritin Total Bilirubin AST ALT Alkaline Phosphatase Troponin I High Sens B-Natriuretic Peptide Total Protein Albumin Triglycerides Vitamin B12 Folate TSH Urine Color Urine Appearance Urine pH Ur Specific [place] Urine Protein Urine Glucose (UA) Urine Ketones Urine Blood Urine Nitrite Ur Leukocyte Esterase Urine RBC Urine WBC Ur Squamous Epith Cells Other Crystals Urine Bacteria Hyaline Casts Nasal Screen MRSA (PCR) Nasal S. aureus Screen Nasal MRSA/S.aureus Interp Stool Occult Blood Influenza Type A (PCR) Influenza Type B (PCR) RSV RNA Qual (PCR) SARS-CoV-2 RNA (RT-PCR) Blood Type Antibody Screen Crossmatch 06/26/24 06/26/24 06/27/24 20:38 22:38 06:31 WBC RBC Hgb 9.3 L Hct 28.7 L MCV MCH MCHC RDW Plt Count MPV Immature Gran % (Auto) Neut % (Auto) Lymph % (Auto) [place] % (Auto) Eos % (Auto) Baso % (Auto) Lymph # (Auto) [place] # (Auto) Eos # (Auto) Baso # (Auto) Abs Immat Gran (auto) Absolute Neuts (auto) Absolute Nucleated RBC Nucleated RBC % (auto) Neutrophils % (Manual) Band Neutrophils % Lymphocytes % (Manual) Monocytes % (Manual) Metamyelocytes % Myelocytes % Abs Neuts (Manual) Lymphocytes # (Manual) Monocytes # (Manual) Metamyelocytes # Myelocytes # Nucleated RBCs Toxic Granulation Toxic Vacuolation Dohle Bodies WBC Morphology Comment Platelet Estimate Large Platelets Giant Platelets Plt Morphology Comment RBC Morphology Polychromasia Microcytosis Target Cells Tear Drop Cells Ovalocytes Beatrice Cells Schistocytes Smear Path Review Hold Purple Top PT INR APTT VBG pH VBG pCO2 VBG pO2 VBG HCO3 VBG O2 Saturation VBG Base Excess Sodium 146 H Potassium 3.8 Chloride 109 H Carbon Dioxide 26 Anion Gap 15 BUN 51 H Creatinine 2.00 H Estim Creat Clear Calc 32.9 Estimated GFR 33 POC Glucose 231 H 245 H Random Glucose 211 H Lactic Acid Lactic Acid F/U @ 2Hr Lactic Acid F/U @ 4Hr Calcium 9.4 Phosphorus Magnesium Iron TIBC % Saturation Unsat Iron Binding Ferritin Total Bilirubin AST ALT Alkaline Phosphatase Troponin I High Sens B-Natriuretic Peptide Total Protein Albumin Triglycerides Vitamin B12 Folate TSH Urine Color Urine Appearance Urine pH Ur Specific [place] Urine Protein Urine Glucose (UA) Urine Ketones Urine Blood Urine Nitrite Ur Leukocyte Esterase Urine RBC Urine WBC Ur Squamous Epith Cells Other Crystals Urine Bacteria Hyaline Casts Nasal Screen MRSA (PCR) Nasal S. aureus Screen Nasal MRSA/S.aureus Interp Stool Occult Blood Influenza Type A (PCR) Influenza Type B (PCR) RSV RNA Qual (PCR) SARS-CoV-2 RNA (RT-PCR) Blood Type Antibody Screen Crossmatch 06/27/24 06/27/24 06/27/24 07:13 07:47 11:10 WBC RBC Hgb Hct MCV MCH MCHC RDW Plt Count MPV Immature Gran % (Auto) Neut % (Auto) Lymph % (Auto) [place] % (Auto) Eos % (Auto) Baso % (Auto) Lymph # (Auto) [place] # (Auto) Eos # (Auto) Baso # (Auto) Abs Immat Gran (auto) Absolute Neuts (auto) Absolute Nucleated RBC Nucleated RBC % (auto) Neutrophils % (Manual) Band Neutrophils % Lymphocytes % (Manual) Monocytes % (Manual) Metamyelocytes % Myelocytes % Abs Neuts (Manual) Lymphocytes # (Manual) Monocytes # (Manual) Metamyelocytes # Myelocytes # Nucleated RBCs Toxic Granulation Toxic Vacuolation Dohle Bodies WBC Morphology Comment Platelet Estimate Large Platelets Giant Platelets Plt Morphology Comment RBC Morphology Polychromasia Microcytosis Target Cells Tear Drop Cells Ovalocytes Beatrice Cells Schistocytes Smear Path Review Hold Purple Top PT INR APTT VBG pH VBG pCO2 VBG pO2 VBG HCO3 VBG O2 Saturation VBG Base Excess Sodium Potassium Chloride Carbon Dioxide Anion Gap BUN Creatinine Estim Creat Clear Calc Estimated GFR POC Glucose 199 H 194 H 159 H Random Glucose Lactic Acid Lactic Acid F/U @ 2Hr Lactic Acid F/U @ 4Hr Calcium Phosphorus Magnesium Iron TIBC % Saturation Unsat Iron Binding Ferritin Total Bilirubin AST ALT Alkaline Phosphatase Troponin I High Sens B-Natriuretic Peptide Total Protein Albumin Triglycerides Vitamin B12 Folate TSH Urine Color Urine Appearance Urine pH Ur Specific [place] Urine Protein Urine Glucose (UA) Urine Ketones Urine Blood Urine Nitrite Ur Leukocyte Esterase Urine RBC Urine WBC Ur Squamous Epith Cells Other Crystals Urine Bacteria Hyaline Casts Nasal Screen MRSA (PCR) Nasal S. aureus Screen Nasal MRSA/S.aureus Interp Stool Occult Blood Influenza Type A (PCR) Influenza Type B (PCR) RSV RNA Qual (PCR) SARS-CoV-2 RNA (RT-PCR) Blood Type Antibody Screen Crossmatch Airway Mallampati Class: II TM Dist: <=3cm Neck ROM: Full Loose/Missing/Broken Teeth: Yes and Upper Heart: ok Lungs: SpO2 95-100% on room air. Assessment and Plan Assessment Anesthesia Assessment: Anesthesia Plan Discussed and Chart Reviewed Final Anesthetic Review Family History of Problems with Anesthesia: No History of Problems with Anesthesia: No NPO: Yes ASA Class: IV Final Preanesthetic Review: No Changes in Pt Med Stat, Meds/Allgs Chart Rev iewed, Consent Obtained/Reviewed and Anes Risks/Benef Reviewed Patient Risk: High Procedure Risk: Intermediate Anesthetic Plan Anesthetic Plan: Agree w/ Assess. and Plan and TIVA Disposition: Standard PACU
--- NOTE | 2024-06-27 16:58 | P.OPN-COLO_ITS ---
Colonoscopy Operative Note Operative Note Date of Service: 06/27/24 Narrative: FLEXIBLE TRANSORAL UPPER GASTROINTESTINAL ENDOSCOPY WITH BIOPSIES AND COLONOSCOPY TILL CECUM WITH BIOPSIES AND SNARE POLYPECTOMY Pre-op diagnosis: Anemia, GI bleeding Post-op diagnosis: Gastritis, Non-bleeding Gastric ulcer, Colon Polyps, Diverticulosis, hemorrhoids Endoscopist:Prosper Martin MD Anesthesia:?MAC UPPER ENDOSCOPY Consent: Indications for the procedure and potential complications of bleeding, perforation, reaction to medications and missed diagnosis were discussed with the patient's daughter and HCP, Marcie ([phone]) and informed verbal consent was obtained over the telephone. (pt is non-verbal due to dementia) Instrument: Olympus GIF H 190 mid size upper endoscope Monitoring: Vital signs and clinical assessment, continuous EKG monitoring, Pulse oximetry, Carbon Dioxide monitoring and blood pressure monitoring were done throughout the procedure. Procedure: The patient was placed in the left lateral decubitis position and pre-procedure medications were administered and a bite block was placed. The endoscope was inserted into the mouth and advanced under direct vision to the third part of duodenum. A careful inspection was made as the upper endoscope was withdrawn including a retroflexed examination of the proximal stomach; Findings and interventions are described below. Findings: Larynx: Normal Esophagus: GE junction at 40 cms. No esophagitis or Morrow's. Stomach: A 10 - 12 mm clean based ulcer at 48 cms along the greater curvature without high risk stigmata for bleeding - biopsied. Mild gastric erythema - biopsies were obtained from the antrum to check for H pylori. Grade 2 flap valve on retroflexed examination of the cardia. Duodenum: Normal bulb and descending duodenum Intervention: Biopsies as noted above COLONOSCOPY PROCEDURE NOTE Instrument: Olympus CF H 190 L variable stiffness adult colonoscope Monitoring: Vital signs and clinical assessment, intermittent blood pressure monitoring, continuous EKG monitoring, Pulse oximetry and Carbon Dioxide monitoring were done throughout the procedure. Please see anesthesia flowsheet. Colon withdrawl time was 33 minutes. Procedure: The patient was placed in the left lateral decubitis position and pre-procedure medications were administered. After a digital rectal examination of the ano-rectum, the video colonoscope was inserted into the rectum and advanced through the colon to the hepatic flexure. It was not possible to advance further due to a long and redundant colon and lack of scope. The colonoscope was slowly withdrawn in a retrograde panoramic fashion and the colon mucosa was carefully examined including a retroflexed view of the rectum. Findings and interventions are described below. Procedure Difficulty: LLQ pressure was applied to intubate the ascending colon Findings: Terminal Ileum: Not evaluated Cecum: Not evaluated Ascending Colon: Partially evaluated Transverse Colon: Normal Descending Colon: Normal Sigmoid Colon: Moderate diverticulosis Rectum: A 2 cms long non-bleeding in the distal rectum Ano-rectum: Moderate internal hemorrhoids Colon preparation: Good Fair despite copious irrigation. [place] Bowel Preparation Scale Right colon; 2 Transverse colon: 2 Left colon; 2 (0 = Unprepared colon segment with mucosa not seen due to solid stool that cannot be cleared. 1 = Portion of mucosa of the colon segment seen, but other areas of the colon segment not well seen due to staining, residual stool and/or opaque liquid. 2 = Minor amount of residual staining, small fragments of stool and/or opaque liquid, but mucosa of colon segment seen well. 3 = Entire mucosa of colon segment seen well with no residual staining, small fragments of stool or opaque liquid) Impression and Post Procedure Diagnosis: Endoscopy Findings: STOMACH: A 10 - 12 mm clean based ulcer at 48 cms along the greater curvature without high risk stigmata for bleeding - biopsied. Mild gastric erythema - biopsies were obtained from the antrum to check for H pylori. Colonoscopy Findings: No polyps were detected A 2 cms long non-bleeding ulcer in the distal rectum Moderate diverticulosis seen in the sigmoid colon Moderate hemorrhoids on retroflexed exam. Incomplete colonoscopy till hepatic flexure due to long and redundant colon No bleeding or old blood seen in the upper or lower GI tract. Anemia - possibly from slow blood loss for gastric/rectal ulcer in the past. Plan: Clear liquid diet tonight and consider performing a CT colonosgraphy to evaluate the right colon in the am. Repeat Colonoscopy is not recommended given pt's dementia, Above findings were reviewed with the patient's daughter over the phone.
[2024-06-27] MEDS: Lactated Ringers 1,000 ML 50 ML IVCONT (17:00)
[2024-06-27 19:26] LABS: Glucose, Whole Blood 113 mg/dL (60-115)
[2024-06-27] MEDS: Magnesium Oxide 400 MG TABLET PO (19:54)
[2024-06-27] MEDS: hydrALAZINE HCl 10 MG TABLET PO (19:54)
[2024-06-27] MEDS: Sucralfate 1 GM TABLET PO (19:55)
[2024-06-27] MEDS: 0.9 % Sodium Chloride Flush 3 ML SYRINGE IVFLUSH (19:55)
[2024-06-28] VITALS (9 sets, daily range): BP systolic 134–176; BP diastolic 56–86; PULSE 44–55; RESP 16–20; TEMP 36–36.2; O2SAT 93–98
[2024-06-28] MEDS: levETIRAcetam in NaCl (iso-os) 500 MG/100 ML PIGGYBACK 400 MG IV ×2 (00:40→13:50)
[2024-06-28] MEDS: Piperacillin Sodium/Tazobactam 3.375 GM in 0.9 % Sodium Chloride 50 ML IV ×4 (01:09→17:07)
[2024-06-28] MEDS: Pantoprazole Sodium 40 MG/10 ML VIAL IVPUSH (05:12)
[2024-06-28] MEDS: Levothyroxine Sodium 100 MCG TABLET PO (05:12)
[2024-06-28 06:57] LABS: Anion Gap 16 (12-20); Blood Urea Nitrogen 35 mg/dL (9-16); Calcium 9.4 mg/dL (8.4-10.2); Carbon Dioxide 24 mmol/L (22-29); Chloride 107 mmol/L (96-108); Creatinine Clr Calc Pharmacy 38.5; Estimated Glomerular Filt Rate 39; Glucose Random 207 mg/dL (60-115); Potassium 3.9 mmol/L (3.3-5.1); Sodium 143 mmol/L (135-145)
[2024-06-28 07:00] LABS: Hematocrit 28.6 % (42.0-52.0); Hemoglobin 9.6 g/dl (14.0-18.0); Mean Corpuscular HGB Conc 33.6 g/dl (31.0-36.0); Mean Corpuscular Hemoglobin 28.2 pg (27.0-33.0); Mean Corpuscular Volume 83.9 fL (80.0-98.0); Mean Platelet Volume 9.8 fL (9.4-12.4); Platelet Count 281 X10*3/uL (160-400); Red Blood Count 3.41 X10*6/uL (4.60-5.80); Red Cell Distribution Width 16.3 % (11.0-16.0); White Blood Count 8.5 X10*3/uL (4.8-10.8)
[2024-06-28 07:51] LABS: Glucose, Whole Blood 195 mg/dL (60-115)
--- NOTE | 2024-06-28 08:17 | HO.POSTANES ---
Post Anesthesia Evaluation Post Anesthesia Evaluation Date of Service: 06/27/24 Vital Signs: Vital Signs Temp Pulse Resp BP Pulse Ox O2 Del Method O2 Flow Rate 06/28/24 03:50 97.0 F 50 20 142/80 H 98 Nasal Cannula 2 06/28/24 00:00 97.0 F 44 L 20 172/86 H 96 Nasal Cannula 2 Anesthesia: Monitored Mental Status: Awake Pain Control: Satisfactory Nausea/Vomiting: None Hydration: Adequate Anesthesia-Related Issues: No Anes. Related Issues
[2024-06-28] MEDS: Isosorbide Mononitrate 30 MG TAB.ER.24H PO (08:40)
[2024-06-28] MEDS: Finasteride 5 MG TABLET PO (08:40)
[2024-06-28] MEDS: amLODIPine Besylate 10 MG TABLET PO (08:41)
[2024-06-28] MEDS: Atorvastatin Calcium 20 MG TABLET PO (08:41)
[2024-06-28] MEDS: Sucralfate 1 GM TABLET PO ×3 (08:41→22:25)
[2024-06-28] MEDS: hydrALAZINE HCl 10 MG TABLET PO ×3 (08:41→22:25)
[2024-06-28] MEDS: Folic Acid 1 MG TABLET PO (08:41)
[2024-06-28] MEDS: Magnesium Oxide 400 MG TABLET PO ×2 (08:41→17:08)
[2024-06-28] MEDS: Multivitamin TABLET 1 TAB PO (08:41)
[2024-06-28] MEDS: Cholecalciferol (Vitamin D3) 25 MCG TABLET 50 MCG PO (08:41)
[2024-06-28] MEDS: 0.9 % Sodium Chloride Flush 3 ML SYRINGE IVFLUSH ×2 (08:41→17:08)
[2024-06-28] MEDS: Dextrose 5 % 1,000 ML 80 ML IVCONT (08:42)
[2024-06-28 11:34] LABS: Glucose, Whole Blood 201 mg/dL (60-115)
--- NOTE | 2024-06-28 12:47 | MHC.SL.DTX ---
Dysphagia Diet modifications: Last documented Solid diet consistencies: Pureed (NDD1) Last documented Liquid consistency: Thin Changes made to current diet?: No Liquid Consistency and Strategies: Liquid Intake Recommendation: Thin Compensatory Strategies for Safe Swallow: Small Sips Compensatory Strategies for Safe Swallow(b): Sitting Upright (90 deg) No Straw Liquids from Cup Small Bites and Sips Alternate Liquids/Solids Rate of Ingestion Change Avoid Specific Foods Solid Food Consistency: Dietary Recommendations: Pureed (NDD1) Oral Medication Intake: Crushed with Puree Strategies and Precautions to be Taken for Safe Swallow: Sitting Upright (90 deg) No Straw Liquids from Cup Small Bites and Sips Alternate Liquids/Solids Rate of Ingestion Change Avoid Specific Foods Supervision While Eating and/Drinking: Total Assistance (1:1) Foods to Avoid: Mixed consistencies Swallowing Recommended Treatments: Compens. Strategy Educat. Level of Impact on: Daily activities: Mild Education: None Employment: Mild Community: Mild Prognosis for Improvement: Fair Recommendation for Speech: Inpatient Speech Therapy Additional Comments: Patient comes from [facility]. At baseline he is on a pureed diet with thin liquids and takes his medications crushed in puree. Treatment: Pt has been on Clear Liquids pending a Upper endoscopy and colonoscopy which he completed yesterday. Pt is more alert today, watching television and responding to simple commands. When asked if he needed anything he responded, bijan burke , specifically. He tolerated Ice Chip with no overt s/s of aspiration. He is provided a cup which he reaches for, but he is not able tilt the half filled cup sufficiently to drink from it. This is likely due to limited upper extremity weakness and reduced range of motion after his prolonged illness. ULTRASOUND APPLICATIONS SPECIALIST assists with tilting the cup slightly with no overt s/s of aspiration. He tolerated a straw today x3. Suspect this improvement comes from his improved alertness level. Recommend return to Puree Solids (NDD1) with THIN LIQUIDS by controlled cup sip only, trial of straws with ULTRASOUND APPLICATIONS SPECIALIST only. Medications Crushed with Puree. 1-1 Feeding with intermittent encouragement to feed himself when able. ULTRASOUND APPLICATIONS SPECIALIST will continue to follow. Assessment: Curriculum And Instruction Director Clinican/Clinical Fellow: No Supervisory Statement: I have reviewed and agree with the student/clinical fellow's documentation: N/A Speech Language Pathologist: Guzman Rascon M.A., [facility]-ULTRASOUND APPLICATIONS SPECIALIST
--- NOTE | 2024-06-28 12:50 | P.PNIM_ITS ---
Subjective Subjective Date of Service: 06/28/24 Interval History: No new issues Review of Systems No new issues Physical Exam 2 Vital Signs: Vital Signs: Last Vital Signs Temp 97 F 06/28/24 08:00 Pulse 53 06/28/24 08:00 Resp 20 06/28/24 08:00 BP 176/83 H 06/28/24 08:00 Pulse Ox 94 06/28/24 09:44 O2 Del Method Room Air 06/28/24 09:44 O2 Flow Rate 2 06/28/24 08:00 FiO2 30 06/16/24 12:00 BMI result Body Mass Index 23.9 General: [place] but non communicative. Resp: air entry seems fair, seems diminished at bases. CVS: S1,S2,RRR GI: +BS, NT, no distention Skin: No rash Neuro: motor grossly intact Psych: appropriate affect Objective Data Active Medications Amlodipine Besylate (Amlodipine Besylate 10 Mg Tablet) 10 mg PO DAILY [facility]; Protocol Last Admin: 06/28/24 08:41 Dose: 10 mg Documented By: TONI Atorvastatin Calcium (Atorvastatin Calcium 20 Mg Tablet) 20 mg PO DAILY [facility] Last Admin: 06/28/24 08:41 Dose: 20 mg Documented By: TONI Bisacodyl (Bisacodyl 10 Mg Supp.Rect) [address] DAILY PRN PRN Reason: Costipation/If MoM not effective. Finasteride (Finasteride 5 Mg Tablet) 5 mg PO DAILY [facility] Last Admin: 06/28/24 08:40 Dose: 5 mg Documented By: TONI Folic Acid (Folic Acid 1 Mg Tablet) 1 mg PO DAILY [facility] Last Admin: 06/28/24 08:41 Dose: 1 mg Documented By: TONI Glucose (Glucose Gel 15 Gm Gel..Gram.) 15 gm PO Q15M PRN; Protocol PRN Reason: per Hypoglycemia Standing Ord. Hydralazine HCl (Hydralazine Hcl 20 Mg/Ml Vial) 5 mg IVPUSH Q6H PRN; Protocol PRN Reason: htn Last Admin: 06/27/24 12:24 Dose: 5 mg Documented By: VINNIE Hydralazine HCl (Hydralazine Hcl 10 Mg Tablet) 10 mg PO TID [facility]; Protocol Last Admin: 06/28/24 08:41 Dose: 10 mg Documented By: TONI Levetiracetam (Keppra) 500 mg in 100 mls @ 400 mls/hr IV Q12H [facility] Last Infusion: 06/28/24 01:08 Dose: Infused Documented By: SAUL Dextrose (D10) 250 mls @ 750 mls/hr IV Q15M PRN; Protocol PRN Reason: per Hypoglycemia Standing Ord. Last Infusion: 06/24/24 08:50 Dose: Infused Documented By: MJ Piperacillin Sod/Tazobactam (Sod 3.375 gm/ Sodium Chloride) 50 mls @ 100 mls/hr IV Q6H [facility] Last Infusion: 06/28/24 07:02 Dose: Infused Documented By: SAUL Dextrose (D5w) 1,000 mls @ 80 mls/hr IVCONT .[id number] [facility] Last Admin: 06/28/24 08:42 Dose: 80 mls/hr Documented By: TONI Insulin Human Lispro (Insulin Lispro 100 Unit/Ml 3 Ml Vial) 0 unit SUBCUT QIDACHS [facility]; Protocol Last Admin: 06/28/24 08:42 Dose: Not Given Documented By: TONI Non-Admin Reason: No Insulin Coverage Isosorbide Mononitrate (Isosorbide Mononitrate 30 Mg Tab.Er.24h) 30 mg PO DAILY [facility]; Protocol Last Admin: 06/28/24 08:40 Dose: 30 mg Documented By: TONI Levothyroxine Sodium (Levothyroxine Sodium 100 Mcg Tablet) 100 mcg PO DAILY@0600 [facility] Last Admin: 06/28/24 05:12 Dose: 100 mcg Documented By: SAUL Magnesium Oxide (Magnesium Oxide 400 Mg Tablet) 400 mg PO BIDPC [facility] Last Admin: 06/28/24 08:41 Dose: 400 mg Documented By: TONI Multivitamins/Vitamin C (Multivitamin Tablet) 1 tab PO DAILY [facility] Last Admin: 06/28/24 08:41 Dose: 1 tab Documented By: TONI Naloxone HCl (Naloxone Hcl 0.4 Mg/Ml Vial) 0.04 mg IVPUSH Q5M PRN PRN Reason: Excessive sedation or RR < 8 Scopolamine (Scopolamine 1.5 Mg Patch.Td.3) 1.5 mg EAR-BEHIND Q72H [facility] Last Admin: 06/26/24 12:00 Dose: 1.5 mg Documented By: CUCA Sodium Biphosphate/Sodium Phosphate (Sodium Phosphate,Izard-Dibasic 133 Ml Enema) [address] ONCE PRN PRN Reason: Pre-Op Surgical Prep Last Admin: 06/24/24 12:07 Dose: 133 ml Documented By: MJ Sodium Biphosphate/Sodium Phosphate (Sodium Phosphate,Izard-Dibasic 133 Ml Enema) [address] ONCE PRN PRN Reason: Pre-Op Surgical Prep Sodium Biphosphate/Sodium Phosphate (Sodium Phosphate,Izard-Dibasic 133 Ml Enema) [address] ONCE PRN PRN Reason: Pre-Op Surgical Prep Last Admin: 06/27/24 14:11 Dose: 133 ml Documented By: MARIELLE Sodium Chloride (0.9 % Sodium Chloride Flush 3 Ml Syringe) 3 ml IVFLUSH QSHIFT [facility] Last Admin: 06/28/24 08:41 Dose: 3 ml Documented By: TONI Sucralfate (Sucralfate 1 Gm Tablet) 1 gm PO TID [facility] Last Admin: 06/28/24 08:41 Dose: 1 gm Documented By: TONI Vitamin D (Cholecalciferol (Vitamin D3) 25 Mcg Tablet) 50 mcg PO DAILY [facility] Last Admin: 06/28/24 08:41 Dose: 50 mcg Documented By: TONI Labs 06/28/24 06:30 06/28/24 06:30 Labs: Laboratory Results - last 24 hr 06/27/24 06/28/24 06/28/24 19:15 06:30 07:47 MCV 83.9 MCH 28.2 MCHC 33.6 RDW 16.3 H Plt Count 281 MPV 9.8 Absolute Nucleated RBC 0.000 Nucleated RBC % (auto) 0.0 Anion Gap 16 Estim Creat Clear Calc 38.5 Estimated GFR 39 POC Glucose 113 195 H Random Glucose 207 H Calcium 9.4 06/28/24 11:16 MCV MCH MCHC RDW Plt Count MPV Absolute Nucleated RBC Nucleated RBC % (auto) Anion Gap Estim Creat Clear Calc Estimated GFR POC Glucose 201 H Random Glucose Calcium Assessment and Plan (1) Pulmonary aspiration: Status: Acute Assessment and Plan: 73-year-old gentleman with underlying schizophrenia, dementia, left hemiparesis post CVA admitted with alteration of mental status and hypoxia requiring intubation and ventilatory support and vasopressor use Alteration of mental status/metabolic encephalopath d/t sepsis with underlying schizophrenia, dementia and and lack of decision-making capacity and has court appointment guardian Septic shock--required vasopressor in icu,resolved. Sepsis d/t Klebsiela ESBL, completed treatment blood cultures negative, nares MRSA negative Aspiration PNA on Zosyn since 06/22 Acute hypoxic respiratory failure related to aspiration pneumnia that required vent support, succesfully extubated on 06/16, respiratory status has improved. -continue Abx as above. -off O2 hypernatremia--resolved. pvc's episode -8 beats (06/24/24) no new episodes moniter tele. H/o chronic AFIB--previously on Eliquis but has been on hold d/t significant anemia that required transfusion . rate is controlled, not on rate control meds. Acute blood loss anemia possible gib. coagulopathy treated with Vit k. prbc on ( 06/15,06/23 abd 06/24) , during this admisison got total prbc of 3. ppi had colonoscopy 06/27 large colonic ulcer, imcomplete colonoscopy, gi recommends CT colonosgraphy Chronic diastolic heart failure--compensated. PELON on CKD 4,improved Creatine within baseline Diabetes-with flacuatin fs hold Lantus and adjusted SSI. Chronic constipation--lactulose PRN, enema PRN HypoT--Levothyroxine Seizure d/o Keppra Schizophrenia--patient on multiple meds including monthly haldol, risperidal, congentin--he has been fairly sedated and therefore these meds have been on hold, reintroduce if becoming agitated HTN--imdur and Norvasc on hold, BP ok HLD--Lipitor Diabetes--Lantus and SSI. Monitor sugars FEN--was on tpn on icu, clear liquid diet and advance as kimberly TPN stopped on06/20/24. Full code Need for inpatient : recovering from sepsis, encephalopathy, UTI, aspiration PNA Prophylaxis: Pneumatic compression, famotidine ongoing need -anemia -?lower Gi bleed -h/h monitering ,colonscopy, moniter renal funtion/electrolytes.Gi follow up . his daughter updated in detail. Quality Stroke Does the patient have a stroke diagnosis?: No VTE Prior VTE?: No VTE Risk Level:: Medical - moderate - high VTE Device Contraindication: Treatment Not Indicated VTE Drug Contraindication: N/A - Med Ordered
[2024-06-28] MEDS: Insulin Lispro 100 UNIT/ML 3 ML VIAL SUBCUT ×3 (13:51→22:26)
--- NOTE | 2024-06-28 14:21 | HO.WOUND ---
Wound Consult: Follow up 73yr old?[place] [facility] - See progress notes and H&P for detailed history.? Wound consult follow up for sacrum and left foot wounds POA.? 06/14/24 06/16/24 06/28/24 Sacrum - Resolving Stage 2 Pressure Injury previously documented as Deep Tissue Injury in [place] ?Present on Admission Wound Bed: pink hypopigmented tissue - fragile epidermal layer in place Drainage / Odor: none noted Edges: Irregular ? Goals of Treatment: Triad to allow for autolytic healing 06/14/24 06/16/24 06/28/24 Left Foot / Toes Resolving - Deep Tissue Injury in [place] ?Present on Admission Wound Bed: dark pigmented dry tissue Drainage / Odor: None Edges: Irregular ? Goals of Treatment: [place] with betadine to dry and provide antimicrobial environment and heel protector boots in use. No new topical recommendations needed at this time. Recommendations: 1. Turn and Reposition every 2 hours and as needed for patient comfort.? Use pillows or wedges to support off loading positions. 2. Off Load all bony prominences with use of pillows and heel boots if needed.? Apply Preventative foams where needed. ? 3. Monitor for incontinence and moisture control, use barrier creams when needed for prevention and treatment. 4. Provide adequate and supplemental nutrition.? 5. Order or Continue low air loss mattress. 6. When applicable maintain blood glucose levels per Providers order. 7. Sacrum - Off Load Pressure? - Cleanse with PH balance spray or wipes, pat dry. ?Apply thin layer of Triad to wound bed. Do not remove all of paste between applications as this may cause further skin damage.? Apply twice daily. 8. Left Foot / Toe - [place] with Betadine and cover with dry gauze dressing, Daily. Re-consult wound care Nurse for wound deterioration or wound changes.
[2024-06-28 16:57] LABS: Glucose, Whole Blood 217 mg/dL (60-115)
[2024-06-28 21:43] LABS: Glucose, Whole Blood 297 mg/dL (60-115)
[2024-06-29] VITALS (7 sets, daily range): BP systolic 128–160; BP diastolic 59–77; PULSE 48–59; RESP 18–20; TEMP 34–36.1; O2SAT 92–98
[2024-06-29] MEDS: Piperacillin Sodium/Tazobactam 3.375 GM in 0.9 % Sodium Chloride 50 ML IV ×5 (00:30→23:02)
[2024-06-29] MEDS: 0.9 % Sodium Chloride Flush 3 ML SYRINGE IVFLUSH ×4 (00:32→23:02)
[2024-06-29] MEDS: levETIRAcetam in NaCl (iso-os) 500 MG/100 ML PIGGYBACK 400 MG IV ×2 (01:01→13:40)
[2024-06-29] MEDS: Levothyroxine Sodium 100 MCG TABLET PO (06:09)
[2024-06-29 07:29] LABS: Glucose, Whole Blood 67 mg/dL (60-115)
[2024-06-29 08:03] LABS: Glucose, Whole Blood 89 mg/dL (60-115)
[2024-06-29] MEDS: Folic Acid 1 MG TABLET PO (08:05)
[2024-06-29] MEDS: Isosorbide Mononitrate 30 MG TAB.ER.24H PO (08:06)
[2024-06-29] MEDS: Multivitamin TABLET 1 TAB PO (08:06)
[2024-06-29] MEDS: Magnesium Oxide 400 MG TABLET PO ×2 (08:06→17:19)
[2024-06-29] MEDS: Cholecalciferol (Vitamin D3) 25 MCG TABLET 50 MCG PO (08:06)
[2024-06-29] MEDS: amLODIPine Besylate 10 MG TABLET PO (08:06)
[2024-06-29] MEDS: Atorvastatin Calcium 20 MG TABLET PO (08:06)
[2024-06-29] MEDS: Sucralfate 1 GM TABLET PO ×3 (08:06→21:46)
[2024-06-29] MEDS: hydrALAZINE HCl 10 MG TABLET PO ×3 (08:06→21:45)
[2024-06-29] MEDS: Finasteride 5 MG TABLET PO (08:08)
[2024-06-29 11:04] LABS: Glucose, Whole Blood 199 mg/dL (60-115)
[2024-06-29] MEDS: Scopolamine 1.5 MG PATCH.TD.3 EAR-BEHIND (11:12)
--- NOTE | 2024-06-29 11:21 | MHC.CM.PN ---
EMR reviewed and per MD rounds, pt is not medically cleared for discharge today due to management of anemia, requiring lab monitoring, and GI follow up.
--- NOTE | 2024-06-29 12:04 | MHC.SL.SWA ---
Speech Pathologist Impression: Mild dysphagia at baseline, needs full assist to eat d/t generalized weakness Risk of Aspiration Due to: History of Pneumonia Hx of Recent Extubation Dysphasia Diet Status: Purees (NDD1) with THIN LIQUIDS, straws ok. Medications Crushed with Puree. 1-1 Feeding with intermittent encouragement to feed himself when able. EXPERIMENTAL PREFLIGHT MECHANIC continues to follow. Liquid Consistency and Strategies for Safe Swallow: Liquid Intake Recommendation: Thin Liquid Intake Strategies: Small Sips Solid Food Consistency: Dietary Recommendations: Pureed (NDD1) Additional Modifications to Solid Foods: Oral Medication Intake: Crushed with Puree Please contact the pharmacy regarding appropriate crushable or liquid drug formulations that are available whenever modified delivery is recommended. Compensatory Strategies and Precautions to be Taken for Safe Swallow: Sitting Upright (90 deg) Liquids from Cup Liquids from Straw Small Bites and Sips Alternate Liquids/Solids Rate of Ingestion Change Avoid Specific Foods Supervision While Eating and Drinking for Safe Swallow: Total Assistance (1:1) Foods to Avoid: Mixed consistencies Swallowing Recommended Treatments: Compens. Strategy Educat. Recommendation for Speech: Inpatient Speech Therapy Comment: Recc puree diet with thins, meds crushed in puree. (reportedly pt's baseline diet). Pt requires assistance to take small sips and bites. Straws ok EXPERIMENTAL PREFLIGHT MECHANIC continues to follow Frequency/Duration: Date Range for Service Req: Timeline to reassess: Child Specialist Clinican/Clinical Fellow: No Supervisory Statement: I have reviewed and agree with the student/clinical fellow's documentation: N/A Speech Language Pathologist: Yvonne Pierre M.S. CCC-EXPERIMENTAL PREFLIGHT MECHANIC
--- NOTE | 2024-06-29 12:05 | MHC.CLN ---
F/U PT WITH INCREASED NUTRITION RISK R/T PRESSURE INJURIES DIET ADVANCED TO C/L PREVIOUS PO INTAKE 50-100% RECOMMEND ENSURE CLEAR TID TO FURTHER PROMOTE WOUND HEALING SUPPLEMENT TO PROVIDE 720KCALS, 24G PROTEIN MONITOR PO OF C/L AND ENCOURAGE SUPPLEMENTS
--- NOTE | 2024-06-29 14:19 | P.PNNP_ITS ---
Subjective Subjective Date of Service: 06/29/24 Interval history: Admitted for worsening confusion, treated for UTI Pt had increased hyponatremia, most likely related to dehydration/low PO intake, currently taking in fluids by mouth and most recent sodium normalized at 143 Remains non-oliguric. creatinine continues to remain at baseline (2.00 this a.m.) Alert this afternoon, responds intermittently to questions. pt is eating and drinking with assistance No events noted. Physical Exam 2 Vital Signs: Vital Signs: Last Vital Signs Temp 96.2 F L 06/29/24 11:39 Pulse 56 06/29/24 11:39 Resp 20 06/29/24 11:39 BP 128/59 L 06/29/24 11:39 Pulse Ox 92 06/29/24 11:39 O2 Del Method Room Air 06/29/24 11:39 O2 Flow Rate 2 06/28/24 08:00 FiO2 30 06/16/24 12:00 BMI result Body Mass Index 23.9 Const: General: comfortable; No acute distress Neck: Neck: Yes supple and Yes no JVD Resp: Effort & Inspection: normal respiratory effort Auscultation: rhonchi Cardio: Palpation: no palpable S3 and no palpable S4 Heart sounds: no rubs GI: Inspection: Yes normal to inspection Palpation (GI): Soft to palpation Auscultation: normal bowel sounds Skin: General skin exam: no petechiae and no purpura Neuro: Other: Nonverbal. Extrem: General: No clubbing and No edema Objective Data Labs 06/29/24 15:04 06/28/24 06:30 Labs: Laboratory Results - last 24 hr 06/28/24 06/28/24 06/29/24 16:51 21:38 07:24 POC Glucose 217 H 297 H 67 06/29/24 06/29/24 08:00 11:01 POC Glucose 89 199 H Microbiology Microbiology Results: Microbiology 06/14/24 11:05 Blood - Venous Blood Culture - Final No growth after 5 days. 06/14/24 11:03 Blood - Venous Blood Culture - Final No growth after 5 days. 06/14/24 Unknown Urine Catheterized - Burger Catheter Urine Culture - Final Klebsiella pneumoniae Proteus mirabilis Procedures Date of Service Date of Service: 06/29/24 Assessment & Plan Assessment and plan (1) Acute renal failure superimposed on chronic kidney disease: Status: Acute Plan PELON on CKD, resolved Disproportioante increase in BUN- due to GIB Non oliguria Severe Anemia Hypernatremia resolved Renal function continues to remain at baseline. ensure adequate PO intake of fluids to prevent dehydration Supportive care Avoid nephrotoxins Expect recovery recommend outpatient follow up for CKD. Discussed with Dr Cain. Time Spent With Patient Time: Total time managing care of this patient today ____ minutes. Progress Note: Quality Stroke Does the patient have a stroke diagnosis?: No
--- NOTE | 2024-06-29 14:39 | HO.PM.IMPN ---
Subjective Subjective Date of Service: 06/29/24 Interval History: He's more awake and more interative, and talking some today nursing report abdomen big and distended No pain Review of Systems No new issues Physical Exam Vital Signs: Vital Signs: Last Vital Signs Temp 96.2 F L 06/29/24 11:39 Pulse 56 06/29/24 11:39 Resp 20 06/29/24 11:39 BP 128/59 L 06/29/24 11:39 Pulse Ox 92 06/29/24 11:39 O2 Del Method Room Air 06/29/24 11:39 O2 Flow Rate 2 06/28/24 08:00 FiO2 30 06/16/24 12:00 BMI result Body Mass Index 23.9 Objective Data Active Medications Amlodipine Besylate (Amlodipine Besylate 10 Mg Tablet) 10 mg PO DAILY [facility]; Protocol Last Admin: 06/29/24 08:06 Dose: 10 mg Documented By: VINNIE Atorvastatin Calcium (Atorvastatin Calcium 20 Mg Tablet) 20 mg PO DAILY [facility] Last Admin: 06/29/24 08:06 Dose: 20 mg Documented By: VINNIE Bisacodyl (Bisacodyl 10 Mg Supp.Rect) 10 mg [place] DAILY PRN PRN Reason: Costipation/If MoM not effective. Finasteride (Finasteride 5 Mg Tablet) 5 mg PO DAILY [facility] Last Admin: 06/29/24 08:08 Dose: 5 mg Documented By: VINNIE Folic Acid (Folic Acid 1 Mg Tablet) 1 mg PO DAILY [facility] Last Admin: 06/29/24 08:05 Dose: 1 mg Documented By: VINNIE Glucose (Glucose Gel 15 Gm Gel..Gram.) 15 gm PO Q15M PRN; Protocol PRN Reason: per Hypoglycemia Standing Ord. Hydralazine HCl (Hydralazine Hcl 20 Mg/Ml Vial) 5 mg IVPUSH Q6H PRN; Protocol PRN Reason: htn Last Admin: 06/27/24 12:24 Dose: 5 mg Documented By: VINNIE Hydralazine HCl (Hydralazine Hcl 10 Mg Tablet) 10 mg PO TID [facility]; Protocol Last Admin: 06/29/24 08:06 Dose: 10 mg Documented By: VINNIE Levetiracetam (Keppra) 500 mg in 100 mls @ 400 mls/hr IV Q12H [facility] Last Admin: 06/29/24 13:40 Dose: 400 mls/hr Documented By: VINNIE Dextrose (D10) 250 mls @ 750 mls/hr IV Q15M PRN; Protocol PRN Reason: per Hypoglycemia Standing Ord. Last Infusion: 06/24/24 08:50 Dose: Infused Documented By: MJ Piperacillin Sod/Tazobactam (Sod 3.375 gm/ Sodium Chloride) 50 mls @ 100 mls/hr IV Q6H [facility] Last Infusion: 06/29/24 13:38 Dose: Infused Documented By: KIRBYTEKSugey Insulin Human Lispro (Insulin Lispro 100 Unit/Ml 3 Ml Vial) 0 unit SUBCUT QIDACHS [facility]; Protocol Last Admin: 06/29/24 11:05 Dose: Not Given Documented By: VINNIE Non-Admin Reason: No Insulin Coverage Isosorbide Mononitrate (Isosorbide Mononitrate 30 Mg Tab.Er.24h) 30 mg PO DAILY [facility]; Protocol Last Admin: 06/29/24 08:06 Dose: 30 mg Documented By: VINNIE Levothyroxine Sodium (Levothyroxine Sodium 100 Mcg Tablet) 100 mcg PO DAILY@0600 [facility] Last Admin: 06/29/24 06:09 Dose: 100 mcg Documented By: RON Magnesium Oxide (Magnesium Oxide 400 Mg Tablet) 400 mg PO BIDPC [facility] Last Admin: 06/29/24 08:06 Dose: 400 mg Documented By: VINNIE Multivitamins/Vitamin C (Multivitamin Tablet) 1 tab PO DAILY [facility] Last Admin: 06/29/24 08:06 Dose: 1 tab Documented By: VINNIE Naloxone HCl (Naloxone Hcl 0.4 Mg/Ml Vial) 0.04 mg IVPUSH Q5M PRN PRN Reason: Excessive sedation or RR < 8 Scopolamine (Scopolamine 1.5 Mg Patch.Td.3) 1.5 mg EAR-BEHIND Q72H [facility] Last Admin: 06/29/24 11:12 Dose: 1.5 mg Documented By: VINNIE Sodium Biphosphate/Sodium Phosphate (Sodium Phosphate,[place]-Dibasic 133 Ml Enema) 133 ml AK ONCE PRN PRN Reason: Pre-Op Surgical Prep Sodium Biphosphate/Sodium Phosphate (Sodium Phosphate,[place]-Dibasic 133 Ml Enema) 133 ml AK ONCE PRN PRN Reason: Pre-Op Surgical Prep Last Admin: 06/27/24 14:11 Dose: 133 ml Documented By: MARIELLE Sodium Chloride (0.9 % Sodium Chloride Flush 3 Ml Syringe) 3 ml IVFLUSH QSHIFT [facility] Last Admin: 06/29/24 08:08 Dose: 3 ml Documented By: VINNIE Sucralfate (Sucralfate 1 Gm Tablet) 1 gm PO TID [facility] Last Admin: 06/29/24 08:06 Dose: 1 gm Documented By: VINNIE Vitamin D (Cholecalciferol (Vitamin D3) 25 Mcg Tablet) 50 mcg PO DAILY [facility] Last Admin: 06/29/24 08:06 Dose: 50 mcg Documented By: VINNIE Labs 06/29/24 15:04 06/29/24 15:04 Labs: Laboratory Results - last 24 hr 06/28/24 06/28/24 06/29/24 16:51 21:38 07:24 POC Glucose 217 H 297 H 67 06/29/24 06/29/24 08:00 11:01 POC Glucose 89 199 H Assessment and Plan (1) Pulmonary aspiration: Status: Acute Assessment and Plan: 73-year-old gentleman with underlying schizophrenia, dementia, left hemiparesis post CVA admitted with alteration of mental status and hypoxia requiring intubation and ventilatory support and vasopressor use Alteration of mental status/metabolic encephalopath d/t sepsis with underlying schizophrenia, dementia and and lack of decision-making capacity and has court appointment guardian Septic shock--required vasopressor in icu,resolved. Sepsis d/t Klebsiela ESBL, completed treatment blood cultures negative, nares MRSA negative Aspiration PNA on Zosyn since 06/22 Acute hypoxic respiratory failure related to aspiration pneumnia that required vent support, succesfully extubated on 06/16, respiratory status has improved. -continue Abx as above. -off O2 hypernatremia--resolved. pvc's episode -8 beats (06/24/24) no new episodes moniter tele. H/o chronic AFIB--previously on Eliquis but has been on hold d/t significant anemia that required transfusion . rate is controlled, not on rate control meds. Acute blood loss anemia possible gib. coagulopathy treated with Vit k. prbc on ( 06/15,06/23 abd 06/24) , during this admisison got total prbc of 3. ppi had colonoscopy 06/27 large colonic ulcer, imcomplete colonoscopy, gi recommends CT colonosgraphy done result pending Chronic diastolic heart failure--compensated. PELON on CKD 4,improved Creatine within baseline, but decrease urine output, creatine slightly up. Add LR Diabetes-with flacuatin fs hold Lantus and adjusted, ssi, add lantus when diet advance ? abdominal distention--exam seemed unremarkable, abd soft, no tenderness, bowel sounds present kub is requested, CT colonograph also pending, Chronic constipation--lactulose PRN, enema PRN HypoT--Levothyroxine Seizure d/o Keppra Schizophrenia--patient on multiple meds including monthly haldol, risperidal, congentin--he has been fairly sedated and therefore these meds have been on hold, reintroduce if becoming agitated HTN--imdur and Norvasc on hold, BP ok HLD--Lipitor Diabetes--Lantus and SSI. Monitor sugars FEN--was on tpn on icu, clear liquid diet and advance as kimberly TPN stopped on06/20/24. Full code Need for inpatient : recovering from sepsis, encephalopathy, UTI, aspiration PNA Prophylaxis: Pneumatic compression, famotidine ongoing need -anemia -?lower Gi bleed -h/h monitering ,colonscopy, moniter renal funtion/electrolytes.Gi follow up . his daughter updated in detail. Quality Stroke Does the patient have a stroke diagnosis?: No VTE Prior VTE?: No VTE Risk Level:: Medical - moderate - high VTE Device Contraindication: Treatment Not Indicated VTE Drug Contraindication: N/A - Med Ordered
[2024-06-29 15:25] LABS: Hematocrit 30.4 % (42.0-52.0); Hemoglobin 10.1 g/dl (14.0-18.0); Mean Corpuscular HGB Conc 33.2 g/dl (31.0-36.0); Mean Corpuscular Hemoglobin 27.9 pg (27.0-33.0); Mean Platelet Volume 10.4 fL (9.4-12.4); NRBC Pct Auto 0.4 /100WBC (0.0-0.2); Platelet Count 229 X10*3/uL (160-400); Red Blood Count 3.62 X10*6/uL (4.60-5.80); White Blood Count 5.6 X10*3/uL (4.8-10.8)
[2024-06-29 15:41] LABS: Anion Gap 16 (12-20); Blood Urea Nitrogen 28 mg/dL (9-16); Calcium 8.7 mg/dL (8.4-10.2); Carbon Dioxide 24 mmol/L (22-29); Chloride 101 mmol/L (96-108); Creatinine Clr Calc Pharmacy 34.5; Estimated Glomerular Filt Rate 35; Glucose Random 254 mg/dL (60-115); Potassium 3.6 mmol/L (3.3-5.1); Sodium 137 mmol/L (135-145)
[2024-06-29 16:42] LABS: Glucose, Whole Blood 258 mg/dL (60-115)
[2024-06-29] MEDS: Insulin Lispro 100 UNIT/ML 3 ML VIAL SUBCUT ×2 (17:28→21:51)
[2024-06-29] MEDS: Lactated Ringers 1,000 ML 80 ML IVCONT (17:47)
[2024-06-29 21:23] LABS: Glucose, Whole Blood 267 mg/dL (60-115)
[2024-06-29] MEDS: Albumin Human 25 % 100 ML 133.33 ML IV ×2 (21:47→23:02)
[2024-06-29 22:19] LABS: Lactic Acid 1.3 mmol/L (0.5-2.0)
[2024-06-30] VITALS (9 sets, daily range): BP systolic 131–154; BP diastolic 58–67; PULSE 54–108; RESP 16–22; TEMP 35.2–38; O2SAT 92–100
[2024-06-30] MEDS: levETIRAcetam in NaCl (iso-os) 500 MG/100 ML PIGGYBACK 400 MG IV ×3 (00:02→23:59)
[2024-06-30] MEDS: Piperacillin Sodium/Tazobactam 3.375 GM in 0.9 % Sodium Chloride 50 ML IV ×4 (05:05→22:39)
--- NOTE | 2024-06-30 06:03 | PM.EVENT ---
Event Note Date of Service: 06/30/24 Event Note: Patient with increasing oxygen requirements overnight. Tachypnea present with crackles. Obtaining chest x-ray, VBG Time Spent With Patient Time: Total time managing care of this patient today ____ minutes.
[2024-06-30] MEDS: Lactated Ringers 1,000 ML 80 ML IVCONT ×2 (06:06→22:39)
--- NOTE | 2024-06-30 06:26 | PC.NURSE ---
At approx 04:00, patient O2 sustaining in the high 80s. Patient placed on 4L NC and in high fowlers. Patient noted to have increased insipratory and expiratory ronchi. Vitals taken, BP 153/67, 88-92% o2 on 4L NC, HR sustaining 100-110s, RR 22. Patient orally suctioned for large amount of clear secretions. MD Celeste notifed and came to bedside. Chest x-ray, VBG , BNP and ordered respiratory ordered to nasopharyngeal suction. Patient nasopharyngeal suctioned by RT, copious amount of secretions coughed up with small amount of green liquid being suctioned. Patient O2 now sustaining 95% on 4L NC. Patient resting without s/s respiratory distress. Bed locked in lowest possible position, bed alarm on, patient remains in high fowlers.
[2024-06-30 07:22] LABS: Glucose, Whole Blood 83 mg/dL (60-115)
[2024-06-30] MEDS: 0.9 % Sodium Chloride Flush 3 ML SYRINGE IVFLUSH ×2 (09:32→14:40)
[2024-06-30] MEDS: amLODIPine Besylate 10 MG TABLET PO (09:35)
[2024-06-30] MEDS: Isosorbide Mononitrate 30 MG TAB.ER.24H PO (09:35)
[2024-06-30] MEDS: Folic Acid 1 MG TABLET PO (09:35)
[2024-06-30] MEDS: Atorvastatin Calcium 20 MG TABLET PO (09:35)
[2024-06-30] MEDS: Cholecalciferol (Vitamin D3) 25 MCG TABLET 50 MCG PO (09:35)
[2024-06-30] MEDS: Magnesium Oxide 400 MG TABLET PO ×2 (09:35→17:42)
[2024-06-30] MEDS: Sucralfate 1 GM TABLET PO ×3 (09:36→21:08)
[2024-06-30] MEDS: Finasteride 5 MG TABLET PO (09:36)
[2024-06-30] MEDS: Multivitamin TABLET 1 TAB PO (09:36)
[2024-06-30] MEDS: hydrALAZINE HCl 10 MG TABLET PO ×3 (09:36→21:08)
[2024-06-30 12:22] LABS: Glucose, Whole Blood 125 mg/dL (60-115)
--- NOTE | 2024-06-30 12:36 | MHC.SL.SWA ---
Speech Pathologist Impression: Risk of Aspiration Due to: History of Pneumonia Hx of Recent Extubation Dysphasia Diet Status: PUREE (NDD1) with Thin liquids, pills crushed in puree (whole in puree if unable to be crushed), 1-1 feeding, liquids by controlled straw sip o.k., soda by controlled cup sip only (no straws). Liquid Consistency and Strategies for Safe Swallow: Liquid Intake Recommendation: Thin Liquid Intake Strategies: Small Sips Solid Food Consistency: Dietary Recommendations: Pureed (NDD1) Additional Modifications to Solid Foods: Oral Medication Intake: Crushed with Puree Please contact the pharmacy regarding appropriate crushable or liquid drug formulations that are available whenever modified delivery is recommended. Compensatory Strategies and Precautions to be Taken for Safe Swallow: Sitting Upright (90 deg) Liquids from Cup Liquids from Straw Small Bites and Sips Alternate Liquids/Solids Rate of Ingestion Change Avoid Specific Foods Supervision While Eating and Drinking for Safe Swallow: Total Assistance (1:1) Foods to Avoid: Mixed consistencies Swallowing Recommended Treatments: Compens. Strategy Educat. Recommendation for Speech: Inpatient Speech Therapy Comment: Patient seen at lunch today. Diet advanced to his baseline of Puree/Thin on 06/29/24 after GI procedure. Patient was seated in chair beside bed, being fed 1-1 by REPAIRER SHOE STICKS. At onset of observation, patient had already eaten most of his pureed foods, managing this consistency well with no clinical signs of aspiration. REPAIRER SHOE STICKS then presented nutritional shake by straw, with REPAIRER SHOE STICKS closely monitoring/controlling sips by straw (individual sips, removing straw to prevent chain/serial sipping. With this care, patient managed liquids by straw well. Patient has previously been noted to have more difficulty when drinking soda by straw, due to increased impulsivity (inclined to chain sip) and carbonation. Recommend Patient continue on current diet of PUREE (NDD1) with Thin liquids, pills crushed in puree (whole in puree if unable to be crushed), 1-1 feeding, liquids by controlled straw sip o.k., soda by controlled cup sip only (no straws). White board updated with current diet and feeding recommendations. Patient is currently on baseline diet, tolerating well. Recommend 1 f/u by SENIOR ACCOUNTING ASSOCIATE. Frequency/Duration: Date Range for Service Req: Timeline to reassess: Drosophere Operator Clinican/Clinical Fellow: No Supervisory Statement: I have reviewed and agree with the student/clinical fellow's documentation: N/A Speech Language Pathologist: Marly Billings M.A., CCC-SENIOR ACCOUNTING ASSOCIATE
--- NOTE | 2024-06-30 14:14 | P.PNIM_ITS ---
Subjective Subjective Date of Service: 06/30/24 Interval History: Doing well with no issues, low grade temp this morning Review of Systems No new issues Physical Exam 2 Vital Signs: Vital Signs: Last Vital Signs Temp 98.4 F 06/30/24 12:00 Pulse 66 06/30/24 12:00 Resp 16 06/30/24 12:00 BP 131/58 L 06/30/24 12:00 Pulse Ox 99 06/30/24 12:00 O2 Del Method Nasal Cannula 06/30/24 12:00 O2 Flow Rate 3 06/30/24 12:00 FiO2 30 06/16/24 12:00 BMI result Body Mass Index 23.9 General: [place] but non communicative. Resp: air entry seems fair, seems diminished at bases. CVS: S1,S2,RRR GI: +BS, NT, no distention Skin: No rash Neuro: motor grossly intact Psych: appropriate affect Objective Data Active Medications Amlodipine Besylate (Amlodipine Besylate 10 Mg Tablet) 10 mg PO DAILY [facility]; Protocol Last Admin: 06/30/24 09:35 Dose: 10 mg Documented By: DIANNA Atorvastatin Calcium (Atorvastatin Calcium 20 Mg Tablet) 20 mg PO DAILY [facility] Last Admin: 06/30/24 09:35 Dose: 20 mg Documented By: DIANNA Bisacodyl (Bisacodyl 10 Mg Supp.Rect) 10 mg [place] DAILY PRN PRN Reason: Costipation/If MoM not effective. Finasteride (Finasteride 5 Mg Tablet) 5 mg PO DAILY [facility] Last Admin: 06/30/24 09:36 Dose: 5 mg Documented By: DIANNA Folic Acid (Folic Acid 1 Mg Tablet) 1 mg PO DAILY [facility] Last Admin: 06/30/24 09:35 Dose: 1 mg Documented By: DIANNA Glucose (Glucose Gel 15 Gm Gel..Gram.) 15 gm PO Q15M PRN; Protocol PRN Reason: per Hypoglycemia Standing Ord. Hydralazine HCl (Hydralazine Hcl 20 Mg/Ml Vial) 5 mg IVPUSH Q6H PRN; Protocol PRN Reason: htn Last Admin: 06/27/24 12:24 Dose: 5 mg Documented By: VINNIE Hydralazine HCl (Hydralazine Hcl 10 Mg Tablet) 10 mg PO TID [facility]; Protocol Last Admin: 06/30/24 09:36 Dose: 10 mg Documented By: DIANNA Levetiracetam (Keppra) 500 mg in 100 mls @ 400 mls/hr IV Q12H [facility] Last Infusion: 06/30/24 00:19 Dose: Infused Documented By: MARYA Dextrose (D10) 250 mls @ 750 mls/hr IV Q15M PRN; Protocol PRN Reason: per Hypoglycemia Standing Ord. Last Infusion: 06/24/24 08:50 Dose: Infused Documented By: MJ Piperacillin Sod/Tazobactam (Sod 3.375 gm/ Sodium Chloride) 50 mls @ 100 mls/hr IV Q6H [facility] Last Infusion: 06/30/24 06:07 Dose: Infused Documented By: MARYA Lactated Ringer's (Lr) 1,000 mls @ 80 mls/hr IVCONT .[id number] [facility] Last Admin: 06/30/24 06:06 Dose: 80 mls/hr Documented By: MARYA Insulin Human Lispro (Insulin Lispro 100 Unit/Ml 3 Ml Vial) 0 unit SUBCUT QIDACHS [facility]; Protocol Last Admin: 06/29/24 11:05 Dose: Not Given Documented By: VINNIE Non-Admin Reason: No Insulin Coverage Isosorbide Mononitrate (Isosorbide Mononitrate 30 Mg Tab.Er.24h) 30 mg PO DAILY [facility]; Protocol Last Admin: 06/30/24 09:35 Dose: 30 mg Documented By: DIANNA Levothyroxine Sodium (Levothyroxine Sodium 100 Mcg Tablet) 100 mcg PO DAILY@0600 [facility] Last Admin: 06/30/24 06:06 Dose: Not Given Documented By: MARYA Non-Admin Reason: ? Aspiration Magnesium Oxide (Magnesium Oxide 400 Mg Tablet) 400 mg PO BIDPC [facility] Last Admin: 06/30/24 09:35 Dose: 400 mg Documented By: DIANNA Multivitamins/Vitamin C (Multivitamin Tablet) 1 tab PO DAILY [facility] Last Admin: 06/30/24 09:36 Dose: 1 tab Documented By: DIANNA Naloxone HCl (Naloxone Hcl 0.4 Mg/Ml Vial) 0.04 mg IVPUSH Q5M PRN PRN Reason: Excessive sedation or RR < 8 Scopolamine (Scopolamine 1.5 Mg Patch.Td.3) 1.5 mg EAR-BEHIND Q72H [facility] Last Admin: 06/29/24 11:12 Dose: 1.5 mg Documented By: VINNIE Simethicone (Simethicone 80 Mg Tab.Chew) 80 mg PO QIDWMHS PRN PRN Reason: Gas Sodium Chloride (0.9 % Sodium Chloride Flush 3 Ml Syringe) 3 ml IVFLUSH QSHIFT [facility] Last Admin: 06/30/24 09:32 Dose: 3 ml Documented By: DIANNA Sucralfate (Sucralfate 1 Gm Tablet) 1 gm PO TID [facility] Last Admin: 06/30/24 09:36 Dose: 1 gm Documented By: DIANNA Vitamin D (Cholecalciferol (Vitamin D3) 25 Mcg Tablet) 50 mcg PO DAILY [facility] Last Admin: 06/30/24 09:35 Dose: 50 mcg Documented By: DIANNA Labs 06/29/24 15:04 06/29/24 15:04 Labs: Laboratory Results - last 24 hr 06/29/24 06/29/24 06/29/24 15:04 16:21 20:52 MCV 84.0 MCH 27.9 MCHC 33.2 RDW 16.0 Plt Count 229 MPV 10.4 Absolute Nucleated RBC 0.020 H Nucleated RBC % (auto) 0.4 H Anion Gap 16 Estim Creat Clear Calc 34.5 Estimated GFR 35 POC Glucose 258 H 267 H Random Glucose 254 H Lactic Acid Calcium 8.7 D 06/29/24 06/30/24 06/30/24 22:01 07:15 11:14 MCV MCH MCHC RDW Plt Count MPV Absolute Nucleated RBC Nucleated RBC % (auto) Anion Gap Estim Creat Clear Calc Estimated GFR POC Glucose 83 125 H Random Glucose Lactic Acid 1.3 Calcium Assessment and Plan (1) Pulmonary aspiration: Status: Acute Assessment and Plan: 73-year-old gentleman with underlying schizophrenia, dementia, left hemiparesis post CVA admitted with alteration of mental status and hypoxia requiring intubation and ventilatory support and vasopressor use Alteration of mental status/metabolic encephalopath d/t sepsis with underlying schizophrenia, dementia and and lack of decision-making capacity and has court appointment guardian Septic shock--required vasopressor in icu,resolved. Sepsis d/t Klebsiela ESBL, completed treatment blood cultures negative, nares MRSA negative Aspiration PNA on Zosyn since 06/22, dc after 10 days Acute hypoxic respiratory failure related to aspiration pneumnia that required vent support, succesfully extubated on 06/16, respiratory status has improved. -continue Abx as above. -off O2 hypernatremia--resolved. pvc's episode -8 beats (06/24/24) no new episodes moniter tele. H/o chronic AFIB--previously on Eliquis but has been on hold d/t significant anemia that required transfusion . rate is controlled, not on rate control meds. Acute blood loss anemia possible gib. coagulopathy treated with Vit k. prbc on ( 06/15,06/23 abd 06/24) , during this admisison got total prbc of 3. ppi had colonoscopy 06/27 large colonic ulcer, imcomplete colonoscopy, gi recommends CT colonosgraphy done result pending Chronic diastolic heart failure--compensated. PELON on CKD 4,improved Creatine within baseline, but decrease urine output, creatine slightly up. Add LR Diabetes-with flacuatin fs hold Lantus and adjusted, ssi, add lantus when diet advance ? abdominal distention--exam seemed unremarkable, abd soft, no tenderness, bowel sounds present kub is requested, CT colonograph also pending, Chronic constipation--lactulose PRN, enema PRN HypoT--Levothyroxine Seizure d/o Keppra Schizophrenia--patient on multiple meds including monthly haldol, risperidal, congentin--he has been fairly sedated and therefore these meds have been on hold, reintroduce if becoming agitated HTN--imdur and Norvasc on hold, BP ok HLD--Lipitor Diabetes--Lantus and SSI. Monitor sugars FEN--was on tpn on icu, clear liquid diet and advance as kimberly TPN stopped on06/20/24. Full code Need for inpatient : recovering from sepsis, encephalopathy, UTI, aspiration PNA Prophylaxis: Pneumatic compression, famotidine ongoing need -anemia -?lower Gi bleed -h/h monitering ,colonscopy, moniter renal funtion/electrolytes.Gi follow up . Quality Stroke Does the patient have a stroke diagnosis?: No VTE Prior VTE?: No VTE Risk Level:: Medical - moderate - high VTE Device Contraindication: Treatment Not Indicated VTE Drug Contraindication: N/A - Med Ordered
[2024-06-30 21:00] LABS: Glucose, Whole Blood 313 mg/dL (60-115)
[2024-06-30] MEDS: Insulin Lispro 100 UNIT/ML 3 ML VIAL SUBCUT (21:08)
[2024-07-01] VITALS (8 sets, daily range): BP systolic 139–198; BP diastolic 65–82; PULSE 50–60; RESP 18–20; TEMP 35.4–36.7; O2SAT 94–98
[2024-07-01] MEDS: Piperacillin Sodium/Tazobactam 3.375 GM in 0.9 % Sodium Chloride 50 ML IV ×4 (04:32→23:28)
[2024-07-01 07:32] LABS: Glucose, Whole Blood 161 mg/dL (60-115)
[2024-07-01 07:49] LABS: Anion Gap 14 (12-20); Blood Urea Nitrogen 35 mg/dL (9-16); Calcium 9.1 mg/dL (8.4-10.2); Carbon Dioxide 23 mmol/L (22-29); Chloride 106 mmol/L (96-108); Creatinine Clr Calc Pharmacy 27.8; Estimated Glomerular Filt Rate 27; Glucose Random 175 mg/dL (60-115); Potassium 4.1 mmol/L (3.3-5.1); Sodium 139 mmol/L (135-145)
--- NOTE | 2024-07-01 10:00 | MHC.SL.SWA ---
Speech Pathologist Impression: Risk of aspiration, Oropharyngeal dysphagia Risk of Aspiration Due to: History of Pneumonia Hx of Recent Extubation Dysphasia Diet Status: PUREE (NDD1) with Thin liquids, pills crushed in puree (whole in puree if unable to be crushed), 1-1 feeding, liquids by controlled straw sip o.k., soda by controlled cup sip only (no straws). Liquid Consistency and Strategies for Safe Swallow: Liquid Intake Recommendation: Thin Liquid Intake Strategies: Small Sips Solid Food Consistency: Dietary Recommendations: Pureed (NDD1) Oral Medication Intake: Crushed with Puree Please contact the pharmacy regarding appropriate crushable or liquid drug formulations that are available whenever modified delivery is recommended. Compensatory Strategies and Precautions to be Taken for Safe Swallow: Sitting Upright (90 deg) Liquids from Cup Liquids from Straw Small Bites and Sips Alternate Liquids/Solids Rate of Ingestion Change Avoid Specific Foods Supervision While Eating and Drinking for Safe Swallow: Total Assistance (1:1) Foods to Avoid: Mixed consistencies Swallowing Recommended Treatments: Compens. Strategy Educat. Recommendation for Speech: D/C- Patient is on baseline diet. Please re-refer with any future concerns. Building Certifier Clinican/Clinical Fellow: No Supervisory Statement: I have reviewed and agree with the student/clinical fellow's documentation: N/A Speech Language Pathologist: Alfreda Desai M.A., CCC-7[employer] GRADE SOCIAL STUDIES TEACHER
--- NOTE | 2024-07-01 10:12 | PM.PNNEP ---
Subjective Subjective Date of Service: 07/01/24 Interval history: Admitted for worsening confusion, treated for UTI Pt had increased hyponatremia, most likely related to dehydration/low PO intake, currently taking in fluids by mouth and most recent sodium normalized at 143 Remains non-oliguric. creatinine increased from 1.91 on 06/29 to 2.37 today. 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 Alert this afternoon, responds intermittently to questions. pt is eating and drinking with assistance No events noted. Physical Exam Vital Signs: Vital Signs: Last Vital Signs Temp 97.3 F 07/01/24 07:47 Pulse 59 07/01/24 07:47 Resp 20 07/01/24 07:47 BP 170/74 H 07/01/24 07:47 Pulse Ox 94 07/01/24 07:47 O2 Del Method Room Air 07/01/24 07:47 O2 Flow Rate 2 06/30/24 20:00 FiO2 30 06/16/24 12:00 Oxygen Flow Rate 2 06/30/24 16:00 BMI result Body Mass Index 23.9 Const: General: comfortable; No acute distress Neck: Neck: Yes supple and Yes no JVD Resp: Effort & Inspection: normal respiratory effort Auscultation: rhonchi Cardio: Palpation: no palpable S3 and no palpable S4 Heart sounds: no rubs GI: Inspection: Yes normal to inspection Palpation (GI): Soft to palpation Auscultation: normal bowel sounds Skin: General skin exam: no petechiae and no purpura Neuro: Other: Nonverbal. Extrem: General: No clubbing and No edema Objective Data Labs 06/29/24 15:04 07/01/24 06:55 Labs: Laboratory Results - last 24 hr 06/30/24 06/30/24 07/01/24 11:14 20:56 06:55 Sodium 139 Potassium 4.1 Chloride 106 Carbon Dioxide 23 Anion Gap 14 BUN 35 H Creatinine 2.37 H Estim Creat Clear Calc 27.8 Estimated GFR 27 POC Glucose 125 H 313 H Random Glucose 175 H Calcium 9.1 07/01/24 07:27 Sodium Potassium Chloride Carbon Dioxide Anion Gap BUN Creatinine Estim Creat Clear Calc Estimated GFR POC Glucose 161 H Random Glucose Calcium Microbiology Microbiology Results: Microbiology 06/29/24 22:01 Blood - Venous Blood Culture - Preliminary No growth after 24 hours. 06/29/24 22:01 Blood - Venous Blood Culture - Preliminary No growth after 24 hours. 06/14/24 11:05 Blood - Venous Blood Culture - Final No growth after 5 days. 06/14/24 11:03 Blood - Venous Blood Culture - Final No growth after 5 days. 06/14/24 Unknown Urine Catheterized - Burger Catheter Urine Culture - Final Klebsiella pneumoniae Proteus mirabilis Procedures Date of Service Date of Service: 07/01/24 Assessment & Plan Assessment and plan (1) Acute renal failure superimposed on chronic kidney disease: Status: Acute Plan PELON on CKD, resolved Disproportioante increase in BUN- due to GIB Non oliguria Severe Anemia creatinine bump is likely secondary to hypoperfusion on 06/27 (BP dropped significantly that morning) recommend avoiding rapid drops in blood pressure Hypernatremia resolved ensure adequate PO intake of fluids to prevent dehydration Supportive care Avoid nephrotoxins Expect recovery recommend outpatient follow up for CKD. Discussed with Dr Cain. Time Spent With Patient Time: Total time managing care of this patient today ____ minutes. Progress Note: Quality Stroke Does the patient have a stroke diagnosis?: No
--- NOTE | 2024-07-01 11:21 | MHC.CLN ---
F/U PT WITH INCREASED NUTRITION RISK R/T PRESSURE INJURIES PO INTAKE 100% X 4 MEALS DIET ADVANCED TO 1800DM PUREED-RECOMMEND INCREASING KCALS 2000DM TO PROMOTE WOUND HEALING AND MEET ESTIMATED NEEDS RECOMMEND ENSURE MAX TID TO FURTHER PROMOTE WOUND HEALING SUPPLEMENT TO PROVIDE 450KCALS, 90G PROTEIN WITH 100% ACCEPTANCE MONITOR PO INTAKE AND ENCOURAGE SUPPLEMENTS
[2024-07-01 11:23] LABS: Glucose, Whole Blood 154 mg/dL (60-115)
[2024-07-01] MEDS: 0.9 % Sodium Chloride Flush 3 ML SYRINGE IVFLUSH ×3 (11:33→23:33)
[2024-07-01] MEDS: Finasteride 5 MG TABLET PO (11:33)
[2024-07-01] MEDS: amLODIPine Besylate 10 MG TABLET PO (11:34)
[2024-07-01] MEDS: Sucralfate 1 GM TABLET PO ×3 (11:34→20:33)
[2024-07-01] MEDS: Magnesium Oxide 400 MG TABLET PO ×2 (11:34→16:29)
[2024-07-01] MEDS: Isosorbide Mononitrate 30 MG TAB.ER.24H PO (11:34)
[2024-07-01] MEDS: Multivitamin TABLET 1 TAB PO (11:35)
[2024-07-01] MEDS: Folic Acid 1 MG TABLET PO (11:35)
[2024-07-01] MEDS: Cholecalciferol (Vitamin D3) 25 MCG TABLET 50 MCG PO (11:35)
[2024-07-01] MEDS: Atorvastatin Calcium 20 MG TABLET PO (11:35)
[2024-07-01] MEDS: hydrALAZINE HCl 10 MG TABLET PO ×3 (11:35→20:33)
[2024-07-01] MEDS: levETIRAcetam in NaCl (iso-os) 500 MG/100 ML PIGGYBACK 400 MG IV (12:26)
--- NOTE | 2024-07-01 13:45 | P.PNIM_ITS ---
Subjective Subjective Date of Service: 07/01/24 Interval History: Doing well with no issues, serum Cr is higher than yesterday, h/h is stable Physical Exam 2 Vital Signs: Vital Signs: Last Vital Signs Temp 97.7 F 07/01/24 11:42 Pulse 55 07/01/24 11:42 Resp 18 07/01/24 11:42 BP 160/79 H 07/01/24 11:42 Pulse Ox 94 07/01/24 11:42 O2 Del Method Room Air 07/01/24 11:42 O2 Flow Rate 2 06/30/24 20:00 FiO2 30 06/16/24 12:00 Oxygen Flow Rate 2 06/30/24 16:00 BMI result Body Mass Index 23.9 General: [place] but non communicative. Resp: air entry seems fair, seems diminished at bases. CVS: S1,S2,RRR GI: +BS, NT, no distention Skin: No rash Neuro: motor grossly intact Psych: appropriate affect Objective Data Active Medications Amlodipine Besylate (Amlodipine Besylate 10 Mg Tablet) 10 mg PO DAILY [facility]; Protocol Last Admin: 07/01/24 11:34 Dose: 10 mg Documented By: DIANNA Atorvastatin Calcium (Atorvastatin Calcium 20 Mg Tablet) 20 mg PO DAILY [facility] Last Admin: 07/01/24 11:35 Dose: 20 mg Documented By: DIANNA Bisacodyl (Bisacodyl 10 Mg Supp.Rect) 10 mg [place] DAILY PRN PRN Reason: Costipation/If MoM not effective. Finasteride (Finasteride 5 Mg Tablet) 5 mg PO DAILY [facility] Last Admin: 07/01/24 11:33 Dose: 5 mg Documented By: DIANNA Folic Acid (Folic Acid 1 Mg Tablet) 1 mg PO DAILY [facility] Last Admin: 07/01/24 11:35 Dose: 1 mg Documented By: DIANNA Glucose (Glucose Gel 15 Gm Gel..Gram.) 15 gm PO Q15M PRN; Protocol PRN Reason: per Hypoglycemia Standing Ord. Hydralazine HCl (Hydralazine Hcl 20 Mg/Ml Vial) 5 mg IVPUSH Q6H PRN; Protocol PRN Reason: htn Last Admin: 06/27/24 12:24 Dose: 5 mg Documented By: VINNIE Hydralazine HCl (Hydralazine Hcl 10 Mg Tablet) 10 mg PO TID [facility]; Protocol Last Admin: 07/01/24 11:35 Dose: 10 mg Documented By: DIANNA Levetiracetam (Keppra) 500 mg in 100 mls @ 400 mls/hr IV Q12H [facility] Last Infusion: 07/01/24 13:10 Dose: Infused Documented By: DIANNA Dextrose (D10) 250 mls @ 750 mls/hr IV Q15M PRN; Protocol PRN Reason: per Hypoglycemia Standing Ord. Last Infusion: 06/24/24 08:50 Dose: Infused Documented By: MJ Piperacillin Sod/Tazobactam (Sod 3.375 gm/ Sodium Chloride) 50 mls @ 100 mls/hr IV Q6H [facility] Last Infusion: 07/01/24 12:27 Dose: Infused Documented By: DIANNA Lactated Ringer's (Lr) 1,000 mls @ 80 mls/hr IVCONT .[id number] [facility] Last Infusion: 07/01/24 12:31 Dose: Infused Documented By: DIANNA Insulin Human Lispro (Insulin Lispro 100 Unit/Ml 3 Ml Vial) 0 unit SUBCUT QIDACHS [facility]; Protocol Last Admin: 07/01/24 12:30 Dose: Not Given Documented By: DIANNA Non-Admin Reason: No Insulin Coverage Isosorbide Mononitrate (Isosorbide Mononitrate 30 Mg Tab.Er.24h) 30 mg PO DAILY [facility]; Protocol Last Admin: 07/01/24 11:34 Dose: 30 mg Documented By: DIANNA Levothyroxine Sodium (Levothyroxine Sodium 100 Mcg Tablet) 100 mcg PO DAILY@0600 [facility] Last Admin: 07/01/24 05:18 Dose: Not Given Documented By: MARYA Non-Admin Reason: Patient Refused Magnesium Oxide (Magnesium Oxide 400 Mg Tablet) 400 mg PO BIDPC [facility] Last Admin: 07/01/24 11:34 Dose: 400 mg Documented By: DIANNA Multivitamins/Vitamin C (Multivitamin Tablet) 1 tab PO DAILY [facility] Last Admin: 07/01/24 11:35 Dose: 1 tab Documented By: DIANNA Naloxone HCl (Naloxone Hcl 0.4 Mg/Ml Vial) 0.04 mg IVPUSH Q5M PRN PRN Reason: Excessive sedation or RR < 8 Scopolamine (Scopolamine 1.5 Mg Patch.Td.3) 1.5 mg EAR-BEHIND Q72H [facility] Last Admin: 06/29/24 11:12 Dose: 1.5 mg Documented By: VINNIE Simethicone (Simethicone 80 Mg Tab.Chew) 80 mg PO QIDWMHS PRN PRN Reason: Gas Sodium Chloride (0.9 % Sodium Chloride Flush 3 Ml Syringe) 3 ml IVFLUSH QSHIFT [facility] Last Admin: 07/01/24 11:33 Dose: 3 ml Documented By: DIANNA Sucralfate (Sucralfate 1 Gm Tablet) 1 gm PO TID [facility] Last Admin: 07/01/24 11:34 Dose: 1 gm Documented By: DIANNA Vitamin D (Cholecalciferol (Vitamin D3) 25 Mcg Tablet) 50 mcg PO DAILY [facility] Last Admin: 07/01/24 11:35 Dose: 50 mcg Documented By: DIANNA Labs 06/29/24 15:04 07/01/24 06:55 Labs: Laboratory Results - last 24 hr 06/30/24 07/01/24 07/01/24 20:56 06:55 07:27 Anion Gap 14 Estim Creat Clear Calc 27.8 Estimated GFR 27 POC Glucose 313 H 161 H Random Glucose 175 H Calcium 9.1 07/01/24 11:18 Anion Gap Estim Creat Clear Calc Estimated GFR POC Glucose 154 H Random Glucose Calcium Microbiology Microbiology Results: Microbiology 06/29/24 22:01 Blood Culture - Preliminary Blood - Venous No growth after 24 hours. 06/29/24 22:01 Blood Culture - Preliminary Blood - Venous No growth after 24 hours. Assessment and Plan (1) Pulmonary aspiration: Status: Acute Assessment and Plan: 73-year-old gentleman with underlying schizophrenia, dementia, left hemiparesis post CVA admitted with alteration of mental status and hypoxia requiring intubation and ventilatory support and vasopressor use Alteration of mental status/metabolic encephalopath d/t sepsis with underlying schizophrenia, dementia and and lack of decision-making capacity and has court appointment guardian Septic shock--required vasopressor in icu,resolved. Sepsis d/t Klebsiela ESBL, completed treatment blood cultures negative, nares MRSA negative Aspiration PNA on Zosyn since 06/22, dc abx today Acute hypoxic respiratory failure related to aspiration pneumnia that required vent support, succesfully extubated on 06/16, respiratory status has improved. -continue Abx as above. -off O2 hypernatremia--resolved. pvc's episode -8 beats (06/24/24) no new episodes moniter tele. H/o chronic AFIB--previously on Eliquis but has been on hold d/t significant anemia that required transfusion . rate is controlled, not on rate control meds. Acute blood loss anemia possible gib. coagulopathy treated with Vit k. prbc on ( 06/15,06/23 abd 06/24) , during this admisison got total prbc of 3. ppi had colonoscopy 06/27 large colonic ulcer, imcomplete colonoscopy, gi recommends CT colonosgraphy non diagnostic but no mass or polyp to restart eliquis tomorrow per gi Chronic diastolic heart failure--compensated. PELON on CKD 4,improved Creatine within baseline, but decrease urine output, creatine slightly up, continue Ivf and monitor Diabetes-with flacuatin fs hold Lantus and adjusted, ssi, add lantus when diet advance ? abdominal distention--exam seemed unremarkable, abd soft, no tenderness, bowel sounds present kub is requested, CT colonograph also pending, Chronic constipation--lactulose PRN, enema PRN HypoT--Levothyroxine Seizure d/o Keppra Schizophrenia--patient on multiple meds including monthly haldol, risperidal, congentin--he has been fairly sedated and therefore these meds have been on hold, reintroduce if becoming agitated HTN--imdur and Norvasc on hold, BP ok HLD--Lipitor Diabetes--Lantus and SSI. Monitor sugars FEN--was on tpn on icu, clear liquid diet and advance as kimberly TPN stopped on06/20/24. Full code Need for inpatient : recovering from sepsis, encephalopathy, UTI, aspiration PNA Prophylaxis: Pneumatic compression, famotidine ongoing need -anemia -?lower Gi bleed -h/h monitering ,colonscopy, moniter renal funtion/electrolytes.Gi follow up . Quality Stroke Does the patient have a stroke diagnosis?: No VTE Prior VTE?: No VTE Risk Level:: Medical - moderate - high VTE Device Contraindication: Treatment Not Indicated VTE Drug Contraindication: N/A - Med Ordered
--- NOTE | 2024-07-01 15:36 | MHC.CM.PN ---
EMR reviewed and per MD rounds, pt is not medically cleared for discharge due to management of anemia, with GI follow up needed.
[2024-07-01 16:30] LABS: Glucose, Whole Blood 145 mg/dL (60-115)
[2024-07-01 20:27] LABS: Glucose, Whole Blood 210 mg/dL (60-115)
[2024-07-01] MEDS: Insulin Lispro 100 UNIT/ML 3 ML VIAL SUBCUT (20:56)
[2024-07-02] VITALS (9 sets, daily range): BP systolic 157–165; BP diastolic 64–79; PULSE 50–77; RESP 18–20; TEMP 36–36.1; O2SAT 91–95
[2024-07-02] MEDS: levETIRAcetam in NaCl (iso-os) 500 MG/100 ML PIGGYBACK 400 MG IV (00:07)
[2024-07-02] MEDS: Piperacillin Sodium/Tazobactam 3.375 GM in 0.9 % Sodium Chloride 50 ML IV (05:52)
[2024-07-02] MEDS: Levothyroxine Sodium 100 MCG TABLET PO (05:54)
[2024-07-02 07:46] LABS: Glucose, Whole Blood 154 mg/dL (60-115)
[2024-07-02 09:00] LABS: Anion Gap 13 (12-20); Blood Urea Nitrogen 37 mg/dL (9-16); Calcium 9.4 mg/dL (8.4-10.2); Carbon Dioxide 27 mmol/L (22-29); Chloride 104 mmol/L (96-108); Estimated Glomerular Filt Rate 31; Glucose Random 168 mg/dL (60-115); Potassium 3.8 mmol/L (3.3-5.1); Sodium 140 mmol/L (135-145)
[2024-07-02] MEDS: Isosorbide Mononitrate 30 MG TAB.ER.24H PO (09:25)
[2024-07-02] MEDS: Magnesium Oxide 400 MG TABLET PO ×2 (09:25→16:44)
[2024-07-02] MEDS: Finasteride 5 MG TABLET PO (09:25)
[2024-07-02] MEDS: Apixaban 5 MG TABLET PO (09:25)
[2024-07-02] MEDS: Cholecalciferol (Vitamin D3) 25 MCG TABLET 50 MCG PO (09:27)
[2024-07-02] MEDS: Multivitamin TABLET 1 TAB PO (09:27)
[2024-07-02] MEDS: Folic Acid 1 MG TABLET PO (09:27)
[2024-07-02] MEDS: Sucralfate 1 GM TABLET PO ×3 (09:27→20:02)
[2024-07-02] MEDS: Atorvastatin Calcium 20 MG TABLET PO (09:27)
[2024-07-02] MEDS: amLODIPine Besylate 10 MG TABLET PO (09:27)
[2024-07-02] MEDS: hydrALAZINE HCl 10 MG TABLET PO ×3 (09:27→20:02)
[2024-07-02] MEDS: 0.9 % Sodium Chloride Flush 3 ML SYRINGE IVFLUSH ×3 (09:28→20:02)
[2024-07-02 11:20] LABS: Glucose, Whole Blood 181 mg/dL (60-115)
[2024-07-02] MEDS: Scopolamine 1.5 MG PATCH.TD.3 EAR-BEHIND (12:14)
[2024-07-02] MEDS: levETIRAcetam in NaCl (iso-os) 500 MG/100 ML PIGGYBACK 100 MG IV (12:16)
[2024-07-02 13:09] LABS: MANUAL DIFF FLAG NO
[2024-07-02 13:15] LABS: Basophils Percent Auto 0.6 % (0-2); Eosinophils Absolute Auto 0.2 X10*3/uL (0.0-0.4); Eosinophils Percent Auto 2.2 % (0-4); Hematocrit 26.7 % (42.0-52.0); Hemoglobin 8.7 g/dl (14.0-18.0); Imm Gran Abs Auto 0.15 X10*3/uL (0.00-0.03); Imm Gran Pct Auto 2.1 % (0.0-0.4); Lymphocytes Absolute Auto 1.7 X10*3/uL (1.2-4.9); Lymphocytes Percent Auto 23.6 % (20-40); Mean Corpuscular HGB Conc 32.6 g/dl (31.0-36.0); Mean Corpuscular Hemoglobin 28.2 pg (27.0-33.0); Mean Corpuscular Volume 86.7 fL (80.0-98.0); Mean Platelet Volume 10.2 fL (9.4-12.4); Monocytes Absolute Auto 0.4 X10*3/uL (0.1-1.2); NRBC Pct Auto 0.4 /100WBC (0.0-0.2); Neutrophils Absolute Auto 4.7 x10*3/uL (2.0-8.3); Neutrophils Percent Auto 65.5 % (45-73); Platelet Count 213 X10*3/uL (160-400); Red Blood Count 3.08 X10*6/uL (4.60-5.80); Red Cell Distribution Width 16.3 % (11.0-16.0); White Blood Count 7.2 X10*3/uL (4.8-10.8)
--- NOTE | 2024-07-02 13:52 | MHC.CM.PN ---
Addendum entered by Dora Wolf 07/03/24 15:26: PT CLEARED TO DC TODAY BLS TRANSPORT BOOKED FOR 1600 HOURS SNF AND GUARDIAN AWARE Addendum entered by Dora Wolf 07/02/24 14:56: DC HELD SNF AND [facility] INFORMED VIA T/C BLS CANCELED Original Note: PT CLEARED TO DC BACK TO LTC AT [facility] TODAY CM CONTACTED RN STAFF FORESTER AT [facility] AND INFORMED HER HE WOULD BE BACK AFTER 1500 HOURS DCS FAXED TO HER AT [phone] PTS GUARDIAN WAS CONTACTED VIA T/[phone] AND IS AWARE OF AND IN AGREEMENT THE [facility] DC BLS TRANSPORT BOOKED VIA [facility] FOR 1530 HOURS
--- NOTE | 2024-07-02 14:38 | P.PNIM_ITS ---
Subjective Subjective Date of Service: 07/02/24 Interval History: Doing well, no new issues Physical Exam 2 Vital Signs: Vital Signs: Last Vital Signs Temp 96.8 F 07/02/24 12:00 Pulse 62 07/02/24 12:00 Resp 20 07/02/24 12:00 BP 159/72 H 07/02/24 12:00 Pulse Ox 93 07/02/24 12:00 O2 Del Method Room Air 07/02/24 12:00 O2 Flow Rate 3 07/01/24 23:38 FiO2 30 06/16/24 12:00 Oxygen Flow Rate 2 06/30/24 16:00 BMI result Body Mass Index 23.9 General: [place]ke but non communicative. Resp: air entry seems fair, seems diminished at bases. CVS: S1,S2,RRR GI: +BS, NT, no distention Skin: No rash Neuro: motor grossly intact Psych: appropriate affect Objective Data Active Medications Amlodipine Besylate (Amlodipine Besylate 10 Mg Tablet) 10 mg PO DAILY [facility]; Protocol Last Admin: 07/02/24 09:27 Dose: 10 mg Documented By: TERRELL Apixaban (Apixaban 5 Mg Tablet) 5 mg PO BID [facility] Last Admin: 07/02/24 09:25 Dose: 5 mg Documented By: TERRELL Atorvastatin Calcium (Atorvastatin Calcium 20 Mg Tablet) 20 mg PO DAILY [facility] Last Admin: 07/02/24 09:27 Dose: 20 mg Documented By: TERRELL Bisacodyl (Bisacodyl 10 Mg Supp.Rect) 10 mg [place] DAILY PRN PRN Reason: Costipation/If MoM not effective. Finasteride (Finasteride 5 Mg Tablet) 5 mg PO DAILY [facility] Last Admin: 07/02/24 09:25 Dose: 5 mg Documented By: TERRELL Folic Acid (Folic Acid 1 Mg Tablet) 1 mg PO DAILY [facility] Last Admin: 07/02/24 09:27 Dose: 1 mg Documented By: TERRELL Glucose (Glucose Gel 15 Gm Gel..Gram.) 15 gm PO Q15M PRN; Protocol PRN Reason: per Hypoglycemia Standing Ord. Hydralazine HCl (Hydralazine Hcl 20 Mg/Ml Vial) 5 mg IVPUSH Q6H PRN; Protocol PRN Reason: htn Last Admin: 06/27/24 12:24 Dose: 5 mg Documented By: VINNIE Hydralazine HCl (Hydralazine Hcl 10 Mg Tablet) 10 mg PO TID [facility]; Protocol Last Admin: 07/02/24 09:27 Dose: 10 mg Documented By: TERRELL Levetiracetam (Keppra) 500 mg in 100 mls @ 400 mls/hr IV Q12H [facility] Last Infusion: 07/02/24 13:29 Dose: Infused Documented By: TERRELL Dextrose (D10) 250 mls @ 750 mls/hr IV Q15M PRN; Protocol PRN Reason: per Hypoglycemia Standing Ord. Last Infusion: 06/24/24 08:50 Dose: Infused Documented By: MJ Insulin Human Lispro (Insulin Lispro 100 Unit/Ml 3 Ml Vial) 0 unit SUBCUT QIDACHS [facility]; Protocol Last Admin: 07/02/24 11:44 Dose: Not Given Documented By: TERRELL Non-Admin Reason: No Insulin Coverage Isosorbide Mononitrate (Isosorbide Mononitrate 30 Mg Tab.Er.24h) 30 mg PO DAILY [facility]; Protocol Last Admin: 07/02/24 09:25 Dose: 30 mg Documented By: TERRELL Levothyroxine Sodium (Levothyroxine Sodium 100 Mcg Tablet) 100 mcg PO DAILY@0600 [facility] Last Admin: 07/02/24 05:54 Dose: 100 mcg Documented By: RON Magnesium Oxide (Magnesium Oxide 400 Mg Tablet) 400 mg PO BIDPC [facility] Last Admin: 07/02/24 09:25 Dose: 400 mg Documented By: TERRELL Multivitamins/Vitamin C (Multivitamin Tablet) 1 tab PO DAILY [facility] Last Admin: 07/02/24 09:27 Dose: 1 tab Documented By: TERRELL Naloxone HCl (Naloxone Hcl 0.4 Mg/Ml Vial) 0.04 mg IVPUSH Q5M PRN PRN Reason: Excessive sedation or RR < 8 Scopolamine (Scopolamine 1.5 Mg Patch.Td.3) 1.5 mg EAR-BEHIND Q72H [facility] Last Admin: 07/02/24 12:14 Dose: 1.5 mg Documented By: TERRELL Simethicone (Simethicone 80 Mg Tab.Chew) 80 mg PO QIDWMHS PRN PRN Reason: Gas Sodium Chloride (0.9 % Sodium Chloride Flush 3 Ml Syringe) 3 ml IVFLUSH QSHIFT [facility] Last Admin: 07/02/24 09:28 Dose: 3 ml Documented By: TERRELL Sucralfate (Sucralfate 1 Gm Tablet) 1 gm PO TID [facility] Last Admin: 07/02/24 09:27 Dose: 1 gm Documented By: TERRELL Vitamin D (Cholecalciferol (Vitamin D3) 25 Mcg Tablet) 50 mcg PO DAILY [facility] Last Admin: 07/02/24 09:27 Dose: 50 mcg Documented By: TERRELL Labs 07/03/24 08:33 07/03/24 08:33 Labs: Laboratory Results - last 24 hr 07/01/24 07/01/24 07/02/24 16:25 20:01 07:42 MCV MCH MCHC RDW Plt Count MPV Immature Gran % (Auto) Neut % (Auto) Lymph % (Auto) Hawkins % (Auto) Eos % (Auto) Baso % (Auto) Lymph # (Auto) Hawkins # (Auto) Eos # (Auto) Baso # (Auto) Abs Immat Gran (auto) Absolute Neuts (auto) Absolute Nucleated RBC Nucleated RBC % (auto) Hold Purple Top Anion Gap Estim Creat Clear Calc Estimated GFR POC Glucose 145 H 210 H 154 H Random Glucose Calcium Hold Yellow Top 07/02/24 07/02/24 07:51 11:16 MCV 86.7 MCH 28.2 MCHC 32.6 RDW 16.3 H Plt Count 213 MPV 10.2 Immature Gran % (Auto) 2.1 H Neut % (Auto) 65.5 Lymph % (Auto) 23.6 Hawkins % (Auto) 6.0 Eos % (Auto) 2.2 Baso % (Auto) 0.6 Lymph # (Auto) 1.7 Hawkins # (Auto) 0.4 Eos # (Auto) 0.2 Baso # (Auto) 0.0 Abs Immat Gran (auto) 0.15 H Absolute Neuts (auto) 4.7 Absolute Nucleated RBC 0.030 H Nucleated RBC % (auto) 0.4 H Hold Purple Top SEE NOTE Anion Gap 13 Estim Creat Clear Calc 31.0 Estimated GFR 31 POC Glucose 181 H Random Glucose 168 H Calcium 9.4 Hold Yellow Top See Note Microbiology Microbiology Results: Microbiology 06/29/24 22:01 Blood Culture - Preliminary Blood - Venous No growth after 48 hours. 06/29/24 22:01 Blood Culture - Preliminary Blood - Venous No growth after 48 hours. Assessment and Plan (1) Pulmonary aspiration: Status: Acute Assessment and Plan: This complex patient with multiple med isssues including AFIB, dementia, schizophrenia, chronic diastolic heartfailure, cva with left hemiparesisis presented with confusion and was admiitted through the ICU with ecephalopathy, hypotension, hypoxic and was intubation and put on vasopressor support. He had sepsis related with to ESBL UTI. He was succesfully extubated days later. Other issues during hospitalization included GIB, anema, dysphagia, aspiration pneumonia, aspiration pneumonia. Alteration of mental status/metabolic encephalopath d/t sepsis UTI with underlying schizophrenia, dementia and and lack of decision-making capacity and has court appointment guardian--the encephalopathy has resolved with treatment of the underlying issues. Sepsis, septic shcok d/t Klebsiela ESBL UTI--completed treatment with Meropenem. Acute hypoxic respiratory failure related to aspiration pneumnia that required vent support, succesfully extubated on 06/16/24--respiratory status much better, stable on room air. Aspiration PN, inital episode treated with Meropenem, second episode treated with Zosyn x 10 days, no symptoms of aspiration, WBC now normal , no fever and 93% on room air. hypernatremia--due to dehydration, resolved, sodium level has been normal, presently 140 pvc's episode -8 beats (06/24/24) no new episodes H/o chronic AFIB--previously on Eliquis but was on been on hold d/t significant anemia and concern for gi bleeding. Restarted on eliquis on 07/02/24, Acute blood loss anemi1, probably gi bleeding. He was transfused 3 units of RBCs on 06/15, 06/23 and 06/24--H/H has since been stable. Given Vit k for coagulopathy colonoscopy 06/27 with 2 cm of non-bleeding rectal ulcer, imcomplete colonoscopy, gi recommends CT colonosgraphy non diagnostic but no mass or polyp restarted eliquis and will monitor for further signs of bleeding Chronic diastolic heart failure--compensated. PELON on CKD 4,improved Creatine within baseline, continue monitoring Diabetes- fluctuating blood sugars, presently controlled on SSI, holding lantus , Chronic constipation--lactulose PRN, enema PRN HypoT--Levothyroxine Seizure d/o Keppra Schizophrenia--patient on multiple meds including monthly haldol, risperidal, congentin--He has not been on these meds with no aparent adverse effect and will therefore continue to hold HTN--imdur and Norvasc on hold, BP ok HLD--Lipitor FEN--was on tpn on icu, but has been succesfully transition to oral diet, with Puree and thin liquid (2) Dementia: Status: Acute (3) Acute renal failure superimposed on chronic kidney disease: Status: Acute (4) Blood loss anemia: Status: Acute Quality Stroke Does the patient have a stroke diagnosis?: No VTE Prior VTE?: No VTE Risk Level:: Medical - moderate - high VTE Device Contraindication: Treatment Not Indicated VTE Drug Contraindication: N/A - Med Ordered
[2024-07-02 16:15] LABS: Glucose, Whole Blood 234 mg/dL (60-115)
[2024-07-02] MEDS: Insulin Lispro 100 UNIT/ML 3 ML VIAL SUBCUT (16:44)
[2024-07-02] MEDS: Simethicone 80 MG TAB.CHEW PO (20:02)
[2024-07-02 20:44] LABS: Glucose, Whole Blood 200 mg/dL (60-115)
--- NOTE | 2024-07-03 02:46 | PC.NURSE ---
pt declined lab draws x [address] Dr [place] aware of pts refusal with instructions to hold eliquis till Hgb/Hct drawn due to decrease in levels noted.
[2024-07-03] MEDS: levETIRAcetam in NaCl (iso-os) 500 MG/100 ML PIGGYBACK 400 MG IV ×2 (03:01→13:28)
[2024-07-03 04:00] VITALS: BP 141/73; PULSE 69; RESP 18; TEMP 36.3; O2SAT 99
[2024-07-03 07:40] LABS: Glucose, Whole Blood 155 mg/dL (60-115)
[2024-07-03 08:00] VITALS: BP 173/79; PULSE 59; RESP 17; TEMP 36.2; O2SAT 93
[2024-07-03 08:45] LABS: Hemoglobin 8.6 g/dl (14.0-18.0); Mean Corpuscular HGB Conc 33.1 g/dl (31.0-36.0); Mean Corpuscular Hemoglobin 28.3 pg (27.0-33.0); Mean Corpuscular Volume 85.5 fL (80.0-98.0); Mean Platelet Volume 9.6 fL (9.4-12.4); NRBC Pct Auto 0.8 /100WBC (0.0-0.2); Platelet Count 199 X10*3/uL (160-400); Red Blood Count 3.04 X10*6/uL (4.60-5.80); Red Cell Distribution Width 16.3 % (11.0-16.0)
[2024-07-03 08:55] LABS: Anion Gap 12 (12-20); Blood Urea Nitrogen 42 mg/dL (9-16); Calcium 9.6 mg/dL (8.4-10.2); Carbon Dioxide 27 mmol/L (22-29); Chloride 106 mmol/L (96-108); Estimated Glomerular Filt Rate 35; Glucose Random 163 mg/dL (60-115); Potassium 3.7 mmol/L (3.3-5.1); Sodium 141 mmol/L (135-145)
[2024-07-03] MEDS: Cholecalciferol (Vitamin D3) 25 MCG TABLET 50 MCG PO (09:17)
[2024-07-03] MEDS: Magnesium Oxide 400 MG TABLET PO (09:17)
[2024-07-03] MEDS: Atorvastatin Calcium 20 MG TABLET PO (09:17)
[2024-07-03] MEDS: Folic Acid 1 MG TABLET PO (09:17)
[2024-07-03] MEDS: Multivitamin TABLET 1 TAB PO (09:19)
[2024-07-03 09:25] VITALS: BP 158/68
[2024-07-03] MEDS: hydrALAZINE HCl 10 MG TABLET PO ×2 (09:25→14:36)
[2024-07-03] MEDS: amLODIPine Besylate 10 MG TABLET PO (09:26)
[2024-07-03] MEDS: 0.9 % Sodium Chloride Flush 3 ML SYRINGE IVFLUSH (09:26)
[2024-07-03] MEDS: Sucralfate 1 GM TABLET PO ×2 (09:44→14:36)
[2024-07-03 11:25] LABS: Glucose, Whole Blood 162 mg/dL (60-115)
[2024-07-03 12:00] VITALS: BP 181/81; PULSE 71; RESP 17; TEMP 35.9; O2SAT 93
--- NOTE | 2024-07-03 13:09 | PM.DS ---
DS: Providers Provider Date of Service: 07/02/24 Date of admission: 06/14/24 12:32 Date of discharge: 07/02/24 Primary care physician: LOR HALEY Consults: 06/14/24 18:35 Consult to Wound Care Routine Reason for consultation: pressure injury 06/18/24 09:43 Consult to Nephrology Routine Consulting Provider: [facility] Reason for consultation: PELON on CKD Has provider been notified: No 06/21/24 10:26 Consult to Gastroenterology Routine Consulting Provider: Dianelys Menendez Reason for consultation: Anemia , fobt positive , also decide for eliquis Has provider been notified: No 06/21/24 10:39 Consult to Infectious Diseases Routine Consulting Provider: [facility] Reason for consultation: kelb . UTI Has provider been notified: No DS: Diagnosis Discharge Diagnosis (1) Pulmonary aspiration: Status: Acute DS: Summary Hospital Course Hospital Course: admission hpi by critical provider on 06/14/24 Chief Complaint: Shock, respiratory failure 73-year-old gentleman with underlying history of diabetes mellitus chronic kidney disease, paroxysmal AFib on Eliquis, diastolic heart failure, dementia, pontine CVA with residual left hemiparesis, schizophrenia admitted on 06/14/2024 off [facility] nurse facility where he resides with worsening confusion. On ER evaluation patient hypotensive and hypoxic requiring intubation for airway protection and pressor support. Started on empiric antibiotics and admitted to the intensive care unit. Hospital course: This complex patient with multiple med isssues including AFIB, dementia, schizophrenia, chronic diastolic heartfailure, cva with left hemiparesisis presented with confusion and was admiitted through the ICU with ecephalopathy, hypotension, hypoxic and was intubation and put on vasopressor support. He had sepsis related with to ESBL UTI. He was succesfully extubated days later. Other issues during hospitalization included GIB, anema, dysphagia, aspiration pneumonia, aspiration pneumonia. hospital course by problems Alteration of mental status/metabolic encephalopath d/t sepsis UTI with underlying schizophrenia, dementia and and lack of decision-making capacity and has court appointment guardian--the encephalopathy has resolved with treatment of the underlying issues. Sepsis, septic shcok d/t Klebsiela ESBL UTI--completed treatment with Meropenem. Acute hypoxic respiratory failure related to aspiration pneumnia that required vent support, succesfully extubated on 06/16/24--respiratory status much better, stable on room air. Aspiration PN, inital episode treated with Meropenem, second episode treated with Zosyn x 10 days, no symptoms of aspiration, WBC now normal , no fever and 93% on room air. hypernatremia--due to dehydration, resolved, sodium level has been normal, presently 140 pvc's episode -8 beats (06/24/24) no new episodes H/o chronic AFIB--previously on Eliquis but was on been on hold d/t significant anemia and concern for gi bleeding. Restarted on eliquis on 07/02/24, H/H remains somehow low and so due to risk of bleeding, changing eliquis to low dose 2.5 mg twice daily, Acute blood loss anemi1, probably gi bleeding. He was transfused 3 units of RBCs on 06/15, 06/23 and 06/24--H/H has since been stable. Given Vit k for coagulopathy colonoscopy 06/27 with 2 cm of non-bleeding rectal ulcer, imcomplete colonoscopy, gi recommends CT colonosgraphy non diagnostic but no mass or polyp restarted eliquis and will monitor for further signs of bleeding, due to riks of bleeding recommending eliquis dose be reduced to 2.5 mg twice daily Chronic diastolic heart failure--compensated. PELON on CKD 4,improved Creatine within baseline, but decrease urine output, creatine slightly up, continue Ivf and monitor, Creatinine 1.88 today Diabetes- fluctuating blood sugars, presently controlled on SSI, holding lantus , Chronic constipation--lactulose PRN, enema PRN HypoT--Levothyroxine Seizure d/o Keppra, dose incraed to 500 mg twice and should be liquid Schizophrenia--patient on multiple meds including monthly haldol, risperidal, congentin--He has not been on these meds with no aparent adverse effect and will therefore continue to hold HTN--imdur and Norvasc on hold, BP ok HLD--Lipitor FEN--was on tpn on icu, but has been succesfully transition to oral diet, with Puree and thinn CONSULTANT EDUCATION recommendation is : PUREE (NDD1) with Thin liquids, pills crushed in puree (whole in puree if unable to be crushed), 1-1 feeding, liquids by controlled straw sip o.k., soda by controlled cup sip only (no straws). Time Attestation Discharge Coordination Time (in mins): 45 Quality: Safe Use of Opioids Does Pt have an Active Cancer Diagnosis on the Problem List?: No Quality: Stroke Does the patient have a stroke diagnosis?: No Physical Exam Vital Signs: Vital Signs: Last Vital Signs Temp 96.9 F 07/02/24 08:00 Pulse 53 07/02/24 08:00 Resp 20 07/02/24 08:00 BP 160/64 H 07/02/24 09:27 Pulse Ox 91 L 07/02/24 08:00 O2 Del Method Room Air 07/02/24 08:00 O2 Flow Rate 3 07/01/24 23:38 FiO2 30 06/16/24 12:00 Oxygen Flow Rate 2 06/30/24 16:00 BMI result Body Mass Index 23.9 DS: Data Data Completed and Pending Completed studies during hospitalization [Text1]: Pending at discharge 06/27/24 17:30 Surgical [PTH] Routine Labs on day of discharge: Laboratory Results - last 24 hr 07/01/24 07/01/24 07/02/24 16:25 20:01 07:42 Hold Purple Top Sodium Potassium Chloride Carbon Dioxide Anion Gap BUN Creatinine Estim Creat Clear Calc Estimated GFR POC Glucose 145 H 210 H 154 H Random Glucose Calcium Hold Yellow Top 07/02/24 07/02/24 07:51 11:16 Hold Purple Top SEE NOTE Sodium 140 Potassium 3.8 Chloride 104 Carbon Dioxide 27 Anion Gap 13 BUN 37 H Creatinine 2.12 H Estim Creat Clear Calc 31.0 Estimated GFR 31 POC Glucose 181 H Random Glucose 168 H Calcium 9.4 Hold Yellow Top See Note Preliminary micro results at discharge 06/29/24 22:01 Blood Culture - Preliminary Blood - Venous No growth after 48 hours. 06/29/24 22:01 Blood Culture - Preliminary Blood - Venous No growth after 48 hours. Discharge Plan Discharge Anticipated Discharge Date/Time: 07/03/24 12:19 Patient Disposition: Xfer SNF Discharge Diagnosis: Septic shock, encephalopathy, acute blood loss anemia, gi bleeding, renal failure Referrals: [facility] [Outside] LOR HALEY [Primary Care Provider] - 1 Week Discharge Medications: New Eliquis 2.5 mg Tablet 2.5 mg PO BID Qty: 60 0RF Continued multivitamin Tablet 1 tab PO DAILY atorvastatin 20 mg Tablet 20 mg PO DAILY Rx Instructions: Hold from 06/14/24 till 06/17/24. sucralfate [Carafate] 1 gram Tablet 1 g PO TID haloperidol decanoate 50 mg/mL Solution 50 mg IM Q4W folic acid 1 mg Tablet 1 mg PO DAILY finasteride 5 mg Tablet 5 mg PO DAILY cholecalciferol (vitamin D3) 50 mcg (2,000 unit) Tablet 50 mcg PO DAILY insulin glargine [Lantus U-100 Insulin] 100 unit/mL Solution 6 unit SUBCUT DAILY isosorbide mononitrate 30 mg Tablet Extended Release 24 Hr 30 mg PO DAILY thiamine HCl (vitamin B1) 100 mg Tablet 100 mg PO DAILY pantoprazole 40 mg Tablet,Delayed Release (Dr/Ec) 40 mg PO DAILY@0630 lactulose 10 gram/15 mL (15 mL) Solution 45 ml PO DAILY acetaminophen 325 mg Tablet 650 mg PO Q6H MDD 3 GM PRN (Reason: General Discomfort/Temp Over 101) acetaminophen 650 mg Suppository 650 mg AZ Q6H MDD 3 GM PRN (Reason: General Discomfort/Temp Over 101) bisacodyl 10 mg Suppository 10 mg AZ DAILY PRN (Reason: Costipation/If MoM not effective.) Rx Instructions: Hold from 06/14/24 till 06/17/24. levothyroxine 100 mcg Tablet 100 mcg PO DAILY@0600 insulin lispro [Humalog U-100 Insulin] 100 unit/mL Solution 1 sliding scale dose SUBCUT USEASDIRECTD Protocol: Insulin Correction Scale Less than or equal to 110 ---- Give (units): 0 111 to 150 Give (units): 0 151 to 200 Give (units): 2 201 to 250 Give (units): 4 251 to 300 Give (units): 6 301 to 350 Give (units): 8 Greater than 350 Give (units): 10 Call MD if Blood Glucose > : 350 Rx Instructions: 150-200: 2 UNITS; 201-250: 4 UNITS; 251-300: 6 UNITS; 301-350: 8 UNITS; 351-400: 10 UNITS; 401 + : 12 UNITS; <70 OR >400 CALL PROVIDER Gvoke 1 mg/0.2 mL Solution 1 mg SUBCUT Q15M PRN (Reason: blood Sugar) Rx Instructions: until target blood sugar attained Glucose Gel 77.4% 77 % gel 1 appl PO Q15M PRN (Reason: HYPOGLYCEMIA, BS <60) Minerin Creme Cream 1 appl TOPICAL TID amlodipine 10 mg Tablet 10 mg PO DAILY Rx Instructions: Hold from 06/14/24 till 06/17/24. Changed levetiracetam 100 mg/mL Solution 500 mg PO BID Qty: 473 0RF Discontinued risperidone 2 mg Tablet 2 mg PO BID Eliquis 5 mg Tablet 5 mg PO BID Rx Instructions: Hold from 06/14/24 till 06/17/24. benztropine 1 mg Tablet 1 mg PO BID Rx Instructions: Hold from 06/14/24 till 06/17/24. Discharge Orders: Discharge Order (Routine); Ordered 07/02/24 Ordered By: Nils Obregon Diet: see below Activity on Discharge: As tolerated Stand Alone Forms: Patient Portal Discharge page Print Language: Gambian Care Plan Goals: recovery from sepsis, encephalopathy, renal failure Health Concerns: septic shock --resolved acute on cronic renal failure gi bleeding, acute blood loss anemia encephalopathy Plan of Treatment: To return to SNF Please note that the patient has not been on BENZTROPINE or RISPERIDONE since admission on 06/14/2024 and therefore not continued, these meds should be reassess to be resumed. No apparent withdrawal from these meds Eliquis dose has been decreased to 2.5 mg twice daily due to bleeding risk, Check CBC once to twice weekly Keppra dose increased to 500 mg twice daily Speech recommendation for diet: PUREE (NDD1) with Thin liquids, pills crushed in puree (whole in puree if unable to be crushed), 1-1 feeding, liquids by controlled straw sip o.k., soda by controlled cup sip only (no straws). Assessment: See above
[2024-07-03 13:20] VITALS: BP 154/52
[2024-07-03 15:55] VITALS: BP 151/67; PULSE 68; RESP 20; TEMP 36; O2SAT 95
[2024-07-03 16:26] LABS: Glucose, Whole Blood 206 mg/dL (60-115)
--- NOTE | 2024-07-03 17:16 | PC.NURSE ---
Pt discharged without incident to [facility] via EMS. Report called to Chata who denied further questions at this time. Pt had his siu on red siu chain in denture cup with belongings sent with transport.
== END 2024-07-03 16:15 | disposition skilled nursing facility (03) | DRG 466 ==
LOC: HO.ED 12:29 → HO.EDOVER 12:46 → HO.ICU 13:10 → HO.IMC 06-19 00:35
PROVIDERS: Internal Medicine; Internal Medicine Gastroenterology; Physician Assistant Medical; Registered Nurse Community Health; Student in an Organized Health Care Education/Training Program; Admitting Provider Internal Medicine Pulmonary Disease; Emergency Provider Emergency Medicine Emergency Medical Services; PCP Emergency Medicine; Visit Provider Internal Medicine
DX: T83.511A Infection and inflammatory reaction due to indwelling urethral catheter, initial encounter (principal); A41.59 Other Gram-negative sepsis; J96.01 Acute respiratory failure with hypoxia; R65.21 Severe sepsis with septic shock; J69.0 Pneumonitis due to inhalation of food and vomit; G93.41 Metabolic encephalopathy; N17.9 Acute kidney failure, unspecified; K25.4 Chronic or unspecified gastric ulcer with hemorrhage; L89.156 Pressure-induced deep tissue damage of sacral region; D62 Acute posthemorrhagic anemia; E86.0 Dehydration; E11.22 Type 2 diabetes mellitus with diabetic chronic kidney disease; I12.9 Hypertensive chronic kidney disease with stage 1 through stage 4 chronic kidney disease, or unspecified chronic kidney disease; Z16.12 Extended spectrum beta lactamase (ESBL) resistance; I69.354 Hemiplegia and hemiparesis following cerebral infarction affecting left non-dominant side; E78.5 Hyperlipidemia, unspecified; F03.90 Unspecified dementia, unspecified severity, without behavioral disturbance, psychotic disturbance, mood disturbance, and anxiety; E03.9 Hypothyroidism, unspecified; K59.09 Other constipation; E87.0 Hyperosmolality and hypernatremia; D63.1 Anemia in chronic kidney disease; I49.3 Ventricular premature depolarization; G40.909 Epilepsy, unspecified, not intractable, without status epilepticus; D68.9 Coagulation defect, unspecified; L89.896 Pressure-induced deep tissue damage of other site; K62.6 Ulcer of anus and rectum; K64.8 Other hemorrhoids; I50.32 Chronic diastolic (congestive) heart failure; K57.31 Diverticulosis of large intestine without perforation or abscess with bleeding; R68.0 Hypothermia, not associated with low environmental temperature; N18.4 Chronic kidney disease, stage 4 (severe); I48.0 Paroxysmal atrial fibrillation; F20.9 Schizophrenia, unspecified; Z20.822 Contact with and (suspected) exposure to COVID-19; Z79.01 Long term (current) use of anticoagulants; Z79.4 Long term (current) use of insulin; Z79.890 Hormone replacement therapy; Z79.899 Other long term (current) drug therapy
CPT/HCPCS: 0241U; 36415; 70450; 71045; 71250; 72125; 74018; 74176; 74261; 80048; 80053; 81001; 82040; 82272; 82607; 82728; 82746; 82803; 82947; 83540; 83605; 83735; 83880; 84100; 84295; 84443; 84478; 84484; 85007; 85014; 85018; 85025; 85027; 85610; 85730; 86850; 86900; 86901; 86923; 87040; 87086; 87088; 87186; 87640; 87641; 88305; 88313; 88342; 92526; 92610; 92950; 93005; 94002; 94003; 94799; 99284; C1758; J0360; J0651; J0692; J1100; J1364; J1644; J1940; J1953; J2185; J2470; J2543; J2704; J3370; J3430; J7120; P9016; P9047

== ENCOUNTER → 2024-06-14 12:32 | Outpatient (BNV) | payer MEDICAID, SELFPAY | PROVIDERS: Admitting Provider Internal Medicine Pulmonary Disease; Emergency Provider Emergency Medicine Emergency Medical Services; PCP Emergency Medicine; Visit Provider Internal Medicine | DX: N17.9 Acute kidney failure, unspecified (principal); N18.9 Chronic kidney disease, unspecified; T17.900A Unspecified foreign body in respiratory tract, part unspecified causing asphyxiation, initial encounter | CPT/HCPCS: 99222 ==

== ENCOUNTER → 2024-06-14 12:32 | Outpatient (BNV) | payer MEDICAID, SELFPAY | PROVIDERS: Admitting Provider Internal Medicine Pulmonary Disease; Emergency Provider Emergency Medicine Emergency Medical Services; PCP Emergency Medicine; Visit Provider Internal Medicine Gastroenterology | DX: D50.0 Iron deficiency anemia secondary to blood loss (chronic) (principal) | CPT/HCPCS: 99223; 99232; 99499 ==

== ENCOUNTER → 2024-06-14 12:32 | Outpatient (BNV) | payer MEDICAID, SELFPAY | PROVIDERS: Admitting Provider Internal Medicine Pulmonary Disease; Emergency Provider Emergency Medicine Emergency Medical Services; PCP Emergency Medicine; Visit Provider Internal Medicine Hypertension Specialist | DX: N17.9 Acute kidney failure, unspecified (principal); N18.9 Chronic kidney disease, unspecified | CPT/HCPCS: 99223; 99231; 99232; 99499 ==

== ENCOUNTER → 2024-06-14 12:32 | Outpatient (BNV) | payer MEDICAID, SELFPAY | PROVIDERS: Admitting Provider Internal Medicine Pulmonary Disease; Emergency Provider Emergency Medicine Emergency Medical Services; PCP Emergency Medicine; Visit Provider Internal Medicine | DX: J69.0 Pneumonitis due to inhalation of food and vomit (principal) | CPT/HCPCS: 99232; 99239; 99499 ==

== ENCOUNTER → 2024-06-14 12:32 | Outpatient (BNV) | payer MEDICAID, SELFPAY | PROVIDERS: Admitting Provider Internal Medicine Pulmonary Disease; Emergency Provider Emergency Medicine Emergency Medical Services; Visit Provider Internal Medicine Pulmonary Disease | DX: N39.0 Urinary tract infection, site not specified (principal); T17.900A Unspecified foreign body in respiratory tract, part unspecified causing asphyxiation, initial encounter; D68.9 Coagulation defect, unspecified; E11.9 Type 2 diabetes mellitus without complications; F20.9 Schizophrenia, unspecified; N18.9 Chronic kidney disease, unspecified | CPT/HCPCS: 99233; 99291 ==